=== PATIENT | female | born 1935 | race Caucasian/White ===

== ENCOUNTER → 2018-07-20 14:21 | Outpatient (CLI) | payer MEDICARE, OTHER, SELFPAY ==
[2018-07-20 13:58] VITALS: BMI 21.9
--- NOTE | 2018-07-20 14:27 | RAD_ITS ---
STUDY: X-RAY CHEST REASON FOR EXAM: Female, 82 years old. Upper respiratory infection. TECHNIQUE: PA and lateral views of the chest. COMPARISON: PA and lateral chest x-ray August 05, 2017. FINDINGS: The multilead left subclavian cardiac pacemaker is unchanged. There is hyperinflation of the lungs consistent with chronic obstructive lung disease (COPD). No acute infiltrate. There is no demonstrated pleural abnormality. There is stable mild cardiac enlargement. Sternal cerclage wires and vascular clips are present from a prior sternotomy and coronary artery bypass graft procedure (CABG). Normal mediastinum and davi. Normal visualized pulmonary arteries. There is stable atherosclerotic calcification of the aortic arch. There are mild multilevel degenerative changes and exaggerated kyphosis of the visualized thoracic spine. Metal fixation device is again seen in the right humeral head. Surgical clips project in the soft tissues of the bilateral chest chow. There is no demonstrated abnormality of the visualized soft tissue structures of the upper abdomen. RAD/Chest PA and Lateral IMPRESSION: Stable x-ray examination of the chest, with findings of obstructive pulmonary disease, prior sternotomy and CABG, mild cardiac enlargement, and multilead cardiac pacemaker. Electronically Signed: Cristobal Sarmiento MD at 15:34 EST , Service support ,
--- OUTSIDE RECORDS SUMMARY | 2018-09-15 00:23 | XMS RPT_ITS ---
:1935 Author Organization OHIP Support Name Relationship Address Phone ICE, TREECIE Unavailable [address] + [place] [address] R Unavailable Unavailable Unavailable ICE, TREECIE Unavailable [address] + [place] [address] R Unavailable Unavailable Unavailable ICE, TREECIE Unavailable [address] + [place] [address] R Unavailable Unavailable Unavailable ICE, TREECIE Unavailable [address] + [place] [address] R Unavailable Unavailable Unavailable ICE, TREECIE Unavailable [address] + [place] [address] R Unavailable Unavailable Unavailable ICE, TREECIE Unavailable [address] + [place] [address] R Unavailable Unavailable Unavailable ICE, TREECIE Unavailable [address] + [place] [address] R Unavailable Unavailable Unavailable ICE, TREECIE Unavailable [address] + [place] [address] R Unavailable Unavailable Unavailable ICE, TREECIE Unavailable [address] + [place] [address] R Unavailable Unavailable Unavailable ICE, TREECIE Unavailable [address] + [place] [address] R Unavailable Unavailable Unavailable ICE, TREECIE Unavailable [address] + [place] [address] R Unavailable Unavailable Unavailable ICE, TREECIE Unavailable [address] + [place] [address] R Unavailable Unavailable Unavailable ICE, TREECIE Unavailable [address] + [place] [address] R Unavailable Unavailable Unavailable R Unavailable Unavailable Unavailable ICE, TREECIE Unavailable [address] + [place] [address] R Unavailable Unavailable Unavailable GRIFFITH, F Unavailable [address] + [place] [address] ICE, TREECIE Unavailable [address] + [place] [address] R Unavailable Unavailable Unavailable GRIFFITH, F Unavailable [address] + [place] [address] ICE, TREECIE Unavailable [address] + [place] [address] R Unavailable Unavailable Unavailable GRIFFITH, F Unavailable [address] + [place] [address] Care Team Providers Name Role Phone Lara Gilliam Attending Unavailable [facility] Unavailable Agyepong, Messi Admitting Unavailable Ciera Bazan Consulting Unavailable Demar Schwartz Consulting Unavailable Agyepong, Messi Admitting Unavailable Agyepong, Messi Attending Unavailable [facility] Unavailable Lilli, Dontrell Consulting Unavailable Agyepong, Messi Admitting Unavailable Dontrell Reeder Attending Unavailable [facility], N[place] Primary Care Unavailable Izabel Bazana Consulting Unavailable Lilli, Dontrell Consulting Unavailable Agyepong, Messi Admitting Unavailable Dontrell Reeder Attending Unavailable [facility], [place] Primary Care Unavailable Ciera Bazan Consulting Unavailable Demar Schwartz Consulting Unavailable Lilli Dontrell Consulting Unavailable Sandy Vincent PA-C Attending Unavailable [facility] III, [place] Primary [facility] Unavailable Agyepong, Messi Admitting Unavailable Demar Schwartz Attending Unavailable bul III, Nesbitt Primary Care Unavailable Izabel Bazana Consulting Unavailable Efren, Demar Consulting Unavailable Lilli, Dontrell Consulting Unavailable Agyepong, Messi Admitting Unavailable Lara Gilliam Attending Unavailable [facility], [place] Primary Care Unavailable Beni Ciera Consulting Unavailable Efren, Demar Consulting Unavailable Semendamir, Lara Consulting Unavailable Agyepong, Messi Admitting Unavailable Demar Schwartz Attending Unavailable Cebul III, Nesbitt Primary Care Unavailable Izabel Bazana Consulting Unavailable Efren, Demar Consulting Unavailable Sementi, Lara Consulting Unavailable Agyepong, Messi Admitting Unavailable Sementi, Lara Attending Unavailable Cebul III, Mariaa Primary Care Unavailable Bazan, Ciera Consulting Unavailable Efren, Demar Consulting Unavailable Sementi, Lara Consulting Unavailable Agyepong, Messi Admitting Unavailable Efren, Demar Attending Unavailable Cebul III, Mariaa Primary Care Unavailable Bazan, Ciera Consulting Unavailable Efren, Demar Consulting Unavailable Sementi, Lara Consulting Unavailable Agyepong, Messi Admitting Unavailable Sementi, Lara Attending Unavailable Cebul III, Mariaa Primary Care Unavailable Bazan, Ciera Consulting Unavailable Efren, Demar Consulting Unavailable Sementi, Lara Consulting Unavailable Agyepong, Messi Admitting Unavailable Sementi, Lara Attending Unavailable Cebul III, Mariaa Primary Care Unavailable Bazan, Ciera Consulting Unavailable Efren, Demar Consulting Unavailable Sementi, Lara Consulting Unavailable Cebul, Maury Attending Unavailable Cebul III, Mariaa Referring Unavailable Cebul, Maury Attending Unavailable Cebul, Maury Referring Unavailable Cebul, Maury Attending Unavailable Cebul III, Mariaa Referring Unavailable Cebul, Maury Attending Unavailable Cebul, Maury Referring Unavailable Cebul III, Mariaa Primary Care Unavailable HOLLEY, ZACHARY Attending Unavailable HOLLEY, ZACHARY Referring Unavailable HOLLEY, ZACHARY Attending Unavailable HOLLEY, ZACHARY Referring Unavailable HOLLEY, ZACHARY Attending Unavailable HOLLEY, ZACHARY Referring Unavailable VERNON HARDING (CLERICAL ADMINISTRATIVE ASSISTANT) Attending Unavailable CEBUL III, MARIAA Bolden Attending Unavailable VERNON HARDING (CLERICAL ADMINISTRATIVE ASSISTANT) Referring Unavailable CEBUL III, MARIAA Bolden Referring Unavailable CEBUL III, MARIAA Bolden Attending Unavailable CEBUL III, MARIAA Bolden Referring Unavailable CEBUL III, MARIAA A Referring Unavailable CEBUL III, MARIAA A Referring Unavailable CEBUL III, MARIAA A Referring Unavailable CEBUL III, MARIAA Bolden Referring Unavailable CEBUL, MARIAA Bolden Attending Unavailable PROBLEMS PROBLEMS DATE TYPE CONDITION / CODE ATTENDING STATUS SOURCE 07/24/2015 Active Hypothyroidism, NA Active [facility] unspecified / [facility] Main E03.9(ICD-10) [place] Repository 07/20/2018 Unknown J06.9 - Acute upper Cebul Maury Active [place] [facility] infection, [facility] unspecified / Repository J06.9(ICD-10) 05/12/2018 Active Peripheral vascular NA Active [facility] disease, [facility] unspecified / [place] I73.9(ICD-10) Repository 05/28/2018 Active Vitamin D NA Active [place] deficiency, [facility] unspecified / [place] E55.9(ICD-10) Repository 02/15/2015 Active Hyperlipidemia, NA Active [place] unspecified / [facility] E78.5(ICD-10) [place] Repository 05/26/2018 Active Pain in right leg / NA Active [place] M79.604(ICD-10) Clinic Main [place] Repository 04/19/2018 Active Hypercalcemia / NA Active [place] E83.52(ICD-10) Clinic Main [place] Repository 04/19/2018 Active Hyperparathyroidism NA Active [place] , unspecified / [facility] Main E21.3(ICD-10) [place] Repository 04/05/2018 Admitting Unknown / MARIAA FULLER Active [facility] diagnosis UNK(Unknown) Hospital Repository 02/10/2018 Active Other long chain beamer NA Active [place] (current) drug [facility] therapy / [place] Z79.899(ICD-10) Repository 10/21/2017 Unknown I73.9 - Peripheral Maury Fuller Active [place] vascular disease, [facility] unspecified / Hospital I73.9(ICD-10) Repository PROCEDURES PROCEDURES No Procedure Records FoundRESULTS RESULTS BASIC METABOLIC Collected: 08/09/2018 Status: F Source: IZZY PROFILE (BMP) 5:30 AM [facility] REPOSITORY TYPE CODE TESTS RESULT OUT OF RANGE REFERENCE UNITS LAB L501.0100 74-106 mg/dL High GLU 117 Result Comment: Fasting Glucose result from 100 to 125 mg/dL suggests IMPAIRED HOMEOSTASIS per A.D.A. criteria. Please note revised GLUCOSE reference range effective 2017. LAB L501.1000 7-18 mg/dL High BUN 19 LAB L501.1100 0.55-1.02 mg/dL High CREAT,SERUM 1.34 Result Comment: The validity of the calculated GFR AND GFRAA in patients over 70 years has not been determined. Clinical correlation is essential. LAB L501.1110 >60 mL/min Low EST GFR 40 Result Comment: Non- GFR Calc LAB L501.1115 >60 mL/min Low EST GFR - AA 49 Result Comment: GFR Calc LAB L501.1255 ml/min Normal Estimated CRCL 24.85 LAB L501.1300 10-20 RATIO Normal BUN/CRE 14.2 LAB L501.2200 8.5-10 mg/dL Normal .1 CA 9.0 LAB L501.5300 136-14 mmol/L Normal 5 NA 139 LAB L501.5600 3.5-5. mmol/L Normal 1 K 3.9 LAB L501.5900 98-107 mmol/L Normal CL 100 LAB L501.6100 21.0-3 mmol/L Normal 2.0 CO2 30.0 LAB L501.6200 5-15 Normal GAP 9 Performed By: #### L500.2500 #### [facility] [address] [place], [address] URINALYSIS, COMPLETE Collected: 08/08/2018 Status: F Source: WHITING 6:00 PM [facility] REPOSITORY Order Comment: How was Urine Obtained? CATHETER SPECIMEN TYPE CODE TESTS RESULT OUT OF RANGE REFERENCE UNITS LAB L400.3000 Yellow COLOR Normal Yellow LAB L400.3050 Clear Normal CLARITY Clear LAB L400.3200 Normal mg/dl Normal GLUCOSE, UR Normal LAB L400.3300 Negative mg/dL Normal BILIRUBIN URINE Negative LAB L400.3400 Negative mg/dl Normal KETONE UR Negative LAB L400.3465 1.002-1.030 Normal SP.GR. DIPSTX 1.015 LAB L400.3550 5.0 - 8.0 pH UR Normal 6.0 LAB L400.3600 Negative mg/dl PROT Normal DIPSTX Negative LAB L400.3700 Normal mg/dl Normal UROBILI Normal LAB L400.3750 Negative Normal NITRITE UR Negative LAB L400.3780 Negative /ul Normal OCCULT BLOOD-UR Negative LAB L400.3800 Negative /ul LEUK Normal ESTERASE Negative LAB L400.4050 0-5 /hpf WBC 0 Normal SEEN LAB L400.4100 0-5 /hpf 0 Normal RBC-UA SEEN LAB L400.4150 5-10 /hpf SQUAM 0 Normal EPI SEEN LAB L400.4300 None Seen /hpf 0 Normal BACTERIA SEEN LAB L400.4350 <or=2+ /hpf 0 Normal MUCUS, URINE SEEN Performed By: #### L400.0001 #### [facility] [address] [place], [address] HAND MIN 3 VIEWS Observed: 08/08/2018 Status: F Source: WHITING 12:04 PM [facility] REPOSITORY [facility] Imaging Services [address] [place] [address] Hand Min 3 Views MR#: [id number] Acct: [id number] Name: LI GRIFFITH Rep #: [id number] : 1935 F 82 From: Ha Collazo MD PCP: Mariaa Fuller III, MD Status: ADM IN Study: Hand Min 3 Views Date of Exam: 08/08/18 Exam# [id number] Ordering Dr: Ino Gilliam DO STUDY: X-RAY - RIGHT HAND REASON FOR EXAM: Female, 82 years old. Third finger redness and swelling TECHNIQUE: 3 view(s) of the hand. COMPARISON: None. FINDINGS: Normal radiocarpal articulation. Normal distal radioulnar joint. Normal visualized carpal bones. Normal carpal articulations Normal carpometacarpal articulation of the thumb. Normal second through fifth carpometacarpal joints. Normal metacarpi. Normal metacarpophalangeal joint of the thumb. Normal interphalangeal joint of the thumb. Normal proximal and distal phalanges of the thumb. Normal metacarpophalangeal joints of the second through fifth fingers. Interphalangeal osteoarthritis distal digit 5, proximal and distal digit 4, proximal and distal digits 3, and proximal digit 2. A small erosion is noted involving the ulnar base of the fifth proximal phalanx. The soft tissue structures are unremarkable. RAD/Hand Min 3 Views IMPRESSION: Multifocal osteoarthritis as described. A small erosion is noted involving the ulnar base of the fifth proximal phalanx. Electronically Signed: Ha Collazo MD at 14:21 EST Tel , Service support , CC: Lara Gilliam; Mariaa Fuller III, MD Nutrition Specialist: Signed CBC-COMPLETE BLOOD CNT Collected: 08/08/2018 Status: F Source: IZZY NO DIFF 5:08 AM [facility] REPOSITORY TYPE CODE TESTS RESULT OUT OF RANGE REFERENCE UNITS LAB L100.1000 4.4-11.0 K/mm3 Normal WBC 10.2 LAB L100.1200 4.2-5.4 M/mm3 Low RBC 3.00 LAB L100.1300 12.0-15.0 g/dl Low HGB 9.5 LAB L100.1400 37-47 % Low HCT 29.6 LAB L100.1500 81-99 fL Normal MCV 98.7 LAB L100.1600 27.0-32.0 pg Normal MCH 31.7 LAB L100.1700 32-36 g/gl Normal MCHC 32.1 LAB L100.1810 11.6-14.6 % High RDW CV 16.7 LAB L100.1820 35.1-43.9 fl High RDW SD 53.2 LAB L100.1900 150-450 K/mm3 Normal PLT 240 LAB L100.2000 6.2-12.0 fl Normal MPV 10.6 Performed By: #### L100.0500 #### [facility] [address], [address] BASIC METABOLIC Collected: 08/08/2018 Status: F Source: WHIT[place] PROFILE (BMP) 5:08 AM [facility] REPOSITORY TYPE CODE TESTS RESULT OUT OF RANGE REFERENCE UNITS LAB L501.0100 74-106 mg/dL Normal GLU 96 Result Comment: Please note revised GLUCOSE reference range effective 2017. LAB L501.1000 7-18 mg/dL Normal BUN 15 LAB L501.1100 0.55-1.02 mg/dL High CREAT,SERUM 1.24 Result Comment: The validity of the calculated GFR AND GFRAA in patients over 70 years has not been determined. Clinical correlation is essential. LAB L501.1110 >60 mL/min Low EST GFR 44 Result Comment: Non- GFR Calc LAB L501.1115 >60 mL/min Low EST GFR - AA 53 Result Comment: GFR Calc LAB L501.1255 ml/min Normal Estimated CRCL 26.85 LAB L501.1300 10-20 RATIO Normal BUN/CRE 12.1 LAB L501.2200 8.5-10 mg/dL Normal .1 CA 8.6 LAB L501.5300 136-14 mmol/L Normal 5 NA 143 LAB L501.5600 3.5-5. mmol/L Normal 1 K 3.7 LAB L501.5900 98-107 mmol/L Normal CL 104 LAB L501.6100 21.0-3 mmol/L Normal 2.0 CO2 31.0 LAB L501.6200 5-15 Normal GAP 8 Performed By: #### L500.2500, L501.2300 #### [facility] [address] [place], [address] PHOSPHORUS Collected: 08/08/2018 Status: F Source: WHITING 5:08 AM [facility] REPOSITORY TYPE CODE TESTS RESULT OUT OF RANGE REFERENCE UNITS LAB L501.2300 2.5-4.9 mg/dL Normal PHOS 2.9 Performed By: #### L500.2500, L501.2300 #### [facility] [address] [place], [address] CHEST 1 VIEW Observed: 08/08/2018 Status: F Source: IZZY (PORTABLE) 4:29 AM [facility] REPOSITORY [facility] Imaging Services [address] [place] [address] Chest 1 View (Portable) MR#: [id number] Acct: [id number] Name: LI GRIFFITH Rep #: [id number] : 1935 F 82 From: Michael Abebe PCP: Mariaa Fuller III, MD Status: ADM IN Study: Chest 1 View (Portable) Date of Exam: 08/08/18 Exam# [id number] Ordering Dr: Messi Hendricks MD STUDY: X-RAY CHEST REASON FOR EXAM: Female, 82 years old. Fever and cough. TECHNIQUE: AP portable chest. COMPARISON: July 20, 2018. FINDINGS: Mild cardiomegaly unchanged. The lungs are hyperinflated. Scattered right basilar subsegmental atelectasis or fibrosis unchanged. No pneumothorax. Sternal wires are present. Cardiac pacemaker left hemithorax. Surgical clips right axilla. The breast shadows are not visualized. Osseous structures unchanged. There is no demonstrated abnormality of the visualized soft tissue structures of the upper abdomen. RAD/Chest 1 View (Portable) IMPRESSION: Stable chest, no acute cardiopulmonary disease. Mild cardiomegaly. COPD. Electronically Signed: Michael Abebe MD at 7:25 EST , Service support , CC: Mariaa Fuller III, MD; Messi Hendricks MD Nutrition Specialist: Signed VENOUS DUPLEX LOWER Observed: 08/07/2018 Status: F Source: WHITING EXTREMITY 4:42 PM [facility] REPOSITORY [facility] Cardiovascular Services [address] [place] [address] Venous Duplex - [facility] 08/07/18 1327 MR#: [id number] Acct: [id number] Name: LI GRIFFITH Rep #: [id number] : 1935 82 From: Axel aSm MD Attending Dr: Lara Gilliam Status: ADM IN Ordering Dr: Ino Gilliam DO Date: 08/07/18 Location: [facility] [place] Sex: F C Admitted: 08/03/18 Reason For Study: LEG PAIN RIGHT LEFT GSV is normal. CFV is compressible, spontaneous, competent, CFV is compressible, spontaneous, competent and demonstrates pulsatile venous flow. and demonstrates pulsatile venous flow. FV is compressible, spontaneous, competent FV is compressible, spontaneous, competent and demonstrates pulsatile venous flow. and demonstrates pulsatile venous flow. POP V is compressible, spontaneous, competent POP V is compressible, spontaneous, competent and demonstrates pulsatile venous flow. and demonstrates pulsatile venous flow. T/P Trunk is compressible. T/P Trunk is compressible. PTV is compressible. PTV is compressible. LT PerV is compressible. RT PerV is compressible. GSV harvested. Procedure Exam performed portable in patient room. A preliminary report was called and/or faxed to [facility]. Interpretation Summary Deep veins of the lower extremities are bilaterally patent and compressible segmentally. There is no evidence of deep vein thrombosis on either side. Valvular competence appears intact within the proximal deep venous systems bilaterally. The right greater saphenous vein appears patent and compressible segmentally. The left greater saphenous vein is absent, having been previously harvested. Pulsatile flow is noted in the deep venous system bilaterally, which may be indicative of elevated central venous pressure (i.e. congestive heart failure, tricuspid valve insufficiency, etc.). Clinical correlation is advised. Ordering Physician: Lara Gilliam Referring Physician: LIA Fuller M.D. Performed By: Samina Arellano RVT 08/07/18 1641 Date Axel Sam MD CC: Lara Gilliam; Mariaa Fuller III, MD Date Dictated: 08/07/18 1327 Date Transcribed: 08/07/18 1641 Nutrition Specialist: Signed DIGOXIN LEVEL Collected: 08/07/2018 Status: F Source: IZZY 1:05 PM [facility] REPOSITORY Order Comment: Comments: OK to use the AM blood TYPE CODE TESTS RESULT OUT OF RANGE REFERENCE UNITS LAB L501.7510 0.80-2.00 ng/mL Low DIG 0.27 Performed By: #### L501.7510 #### [facility] [address] [place], [address] CBC-COMPLETE BLOOD CNT Collected: 08/07/2018 Status: F Source: IZZY NO DIFF 5:45 AM [facility] REPOSITORY TYPE CODE TESTS RESULT OUT OF RANGE REFERENCE UNITS LAB L100.1000 4.4-11.0 K/mm3 Normal WBC 8.1 LAB L100.1200 4.2-5.4 M/mm3 Low RBC 2.72 LAB L100.1300 12.0-15.0 g/dl Low HGB 8.5 LAB L100.1400 37-47 % Low HCT 27.3 LAB L100.1500 81-99 fL High MCV 100.4 LAB L100.1600 27.0-32.0 pg Normal MCH 31.3 LAB L100.1700 32-36 g/gl Low MCHC 31.1 LAB L100.1810 11.6-14.6 % High RDW CV 16.5 LAB L100.1820 35.1-43.9 fl High RDW SD 54.1 LAB L100.1900 150-450 K/mm3 Normal PLT 198 LAB L100.2000 6.2-12.0 fl Normal MPV 10.7 Performed By: #### L100.0500 #### [facility] [address] [place], [address] BASIC METABOLIC Collected: 08/07/2018 Status: F Source: WHITING PROFILE (BMP) 5:45 AM [facility] REPOSITORY TYPE CODE TESTS RESULT OUT OF RANGE REFERENCE UNITS LAB L501.0100 74-106 mg/dL Normal GLU 88 Result Comment: Please note revised GLUCOSE reference range effective 2017. LAB L501.1000 7-18 mg/dL Normal BUN 18 LAB L501.1100 0.55-1.02 mg/dL High CREAT,SERUM 1.04 Result Comment: The validity of the calculated GFR AND GFRAA in patients over 70 years has not been determined. Clinical correlation is essential. LAB L501.1110 >60 mL/min Low EST GFR 54 Result Comment: Non- GFR Calc LAB L501.1115 >60 mL/min Normal EST GFR - AA 65 Result Comment: GFR Calc LAB L501.1255 ml/min Normal Estimated CRCL 32.01 LAB L501.1300 10-20 RATIO Normal BUN/CRE 17.3 LAB L501.2200 8.5-10 mg/dL Normal .1 CA 8.6 LAB L501.5300 136-14 mmol/L Normal 5 NA 144 LAB L501.5600 3.5-5. mmol/L Normal 1 K 3.8 LAB L501.5900 98-107 mmol/L High CL 111 LAB L501.6100 21.0-3 mmol/L Normal 2.0 CO2 27.0 LAB L501.6200 5-15 Normal GAP 6 Performed By: #### L500.2500, L501.2300, L501.5200 #### [facility] [address] [place], [address] PHOSPHORUS Collected: 08/07/2018 Status: F Source: WHITING 5:45 AM [facility] REPOSITORY TYPE CODE TESTS RESULT OUT OF RANGE REFERENCE UNITS LAB L501.2300 2.5-4.9 mg/dL Low PHOS 1.9 Performed By: #### L500.2500, L501.2300, L501.5200 #### [facility] [address] [place], [address] MAGNESIUM Collected: 08/07/2018 Status: F Source: WHITING 5:45 AM [facility] REPOSITORY TYPE CODE TESTS RESULT OUT OF RANGE REFERENCE UNITS LAB L501.5200 1.6-2.6 mg/dL Normal MG 1.6 Performed By: #### L500.2500, L501.2300, L501.5200 #### [facility] [address] [place], [address] CONSULTATION Observed: 08/06/2018 Status: F Source: WHITING 5:13 PM [facility] REPOSITORY [facility] Medical Records Department [address] [place] [id number] Consultation 08/03/18 1803 MR#: [id number] Acct: [id number] Name: LI GRIFFITH Rep #: [id number] : 1935 82 From: Ciera Bazan MD PCP: Mariaa Fuller III, MD Status: ADM IN Y Location: [facility] [place] [id number] - Consult Date of Consult: 08/03/18 - Reason for Consult CC: hematemesis, melena, anemia HPI: 82 y/o WF with multiple medical morbidities presents with anemia, initial Hgb was 10, now down to 7.2. Has had melena and hematemesis. Started yesterday afternoon, but persisted and she presented to [facility] ED. Denies abdominal pain, except for rare epigastric discomfort. Occasional right sided abdominal pain. Denies chronic heartburn, symptoms usually just once a month. Denies history of PUD. Has known right lower extremity arterial disease, seen by Dr. Fuller for consideration of vascular procedure. Occasional takes excedrin for headaches. PAST MEDICAL HISTORY Actinic keratosis 08/13/2011 Cardiomyopathy ([facility]) 03/29/2014 CHF (congestive heart failure) ([facility]) 08/11/2010 Chronic kidney disease (CKD), stage III (moderate) ([facility]) 11/18/2016 Claudication ([facility]) 06/16/2017 Diverticulosis of colon (without mention of hemorrhage) Essential hypertension, benign External hemorrhoids without mention of complication Hypercalcemia 02/19/2017 Internal hemorrhoids without mention of complication Lumbar degenerative disc disease 06/30/2013 Malignant neoplasm of breast (female), unspecified site Breast cancer Other osteoporosis Pure hypercholesterolemia 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 cinacalcet (SENSIPAR) 30 mg tablet Take 1 tablet by mouth twice daily. furosemide (LASIX) 20 mg tablet Take 1 tablet by mouth once daily. meloxicam (MOBIC) 15 mg tablet Take 1 tablet by mouth once daily. With food. Hrdbpaj-Bhlikueckdulu-Rtuenxwd (EXCEDRIN) 250-250-65 mg per tablet Take 1 tablet by mouth every 6 hours as needed for Pain. levothyroxine (SYNTHROID) 100 mcg tablet TAKE 1 TABLET BY MOUTH ONE TIME DAILY ON AN EMPTY STOMACH DIGOX 125 mcg tablet TAKE 1 TABLET BY MOUTH ONE TIME DAILY clopidogrel (PLAVIX) 75 mg tablet TAKE 1 TABLET BY MOUTH EVERY DAY spironolactone (ALDACTONE) 25 mg tablet Take 1 tablet by mouth once daily. losartan (COZAAR) 100 mg tablet TAKE 1 TABLET BY MOUTH ONE TIME DAILY carvedilol (COREG) 25 mg tablet TAKE 1 TABLET BY MOUTH TWICE DAILY nitroglycerin sublingual (NITROSTAT) 0.4 mg SL tablet Dissolve 1 tablet under the tongue as needed. DISSOLVE ON TONGUE FOR CHEST PAIN. IF NO PAIN RELIEF, CALL 911 OTC PRODUCT Vitamin D 1000 mg daily. SOCIAL HISTORY Cancer Mother ovarian Heart Father Breast Cancer Sister Substance Use Topics Smoking status: Never Smoker Smokeless tobacco: Never Used Alcohol use No Review of systems: General: has had some weight loss, decreased appetite, denies fevers Cardiovascular: has pacemaker Respiratory: has shortness of breath with exertion Gastrointestinal - see above Neurological: denies seizures Kidneys - has chronic kidney disease Musculoskeletal - has bad knees PHYSICAL EXAMINATION: BP 142/62 Pulse 88 Temp 98.5 F Resp 16 Wt 120 lb General: APPEARANCE Well appearing, alert, in no acute distress, well-hydrated, well nourished. Neck supple with no JVD, trachea midline Eyes - wearing glasses, sclera clear Lungs clear to auscultation, no rhonchi/wheezing noted Heart sounds - regular Abdomen - soft and benign, normal bowel sounds EXTREMITIES mild lower dependent swelling bilaterally. IMPRESSION: anemia GI bleed PLAN: I have offered upper and lower endoscopy, however, she will require colon cleansing preparation. However, her kidney function tests are elevated and before she undergoes colon cleansing preparation, this should be addressed. Upper and lower endoscopy can be done on Wednesday. I have offered upper endoscopy to be done tomorrow, however, patient's family declines this and wants both done at same time. At this point, patient can be on clear liquid diet. 08/06/18 9822 <Electronically signed by Ciera Bazan MD> Date Ciera Bazan MD Cosigner Signature (if applicable): Date CC: Demar Schwartz MD; Mariaa Fuller III, MD; Ciera Bazan MD Signed CONSULTATION Observed: 08/06/2018 Status: F Source: WHITING 5:48 AM [facility] REPOSITORY [facility] Medical Records Department [address] [place] [address] Consultation 08/05/18 0832 MR#: [id number] Acct: [id number] Name: LI GRIFFITH Rep #: [id number] : 1935 82 From: Demar Schwartz MD PCP: Mariaa Fuller III, MD Status: ADM IN Y Location: ICU ICU01-1 Problem List (1) Acute blood loss anemia Status: Acute (2) Arrhythmia Status: Chronic (3) COPD (chronic obstructive pulmonary disease) Status: Chronic (4) Coronary artery disease Status: Chronic (5) Peripheral arterial disease Status: Chronic Reason for Consult Date of Consultation: 08/05/18 Reason for Consultation: Acute GI bleed History of Present Illness: The patient is a 82 year old F, with past medical history listed below, who presented to [facility] on 08/03/2018 secondary to nausea, vomiting and diarrhea. This reportedly had started abruptly on the day of presentation with a large black stool. Patient had later developed a dark emesis and felt lightheaded and fell to the floor. Patient denied any true syncopal event or injury from the fall, but had complained of some abdominal pain. Patient is on aspirin and Plavix secondary to comorbidities. In the emergency room, patient received IV fluids and a CT scan of the abdomen showed diverticulosis of the colon. Patient's hemoglobin at that time was 10 and INR of 1.2. Attempts to pass an NG tube were unsuccessful. Patient was admitted to the general medical floor for evaluation. Patient does report taking Excedrin on a routine basis secondary to headache, but exact dosing is unclear. Patient was seen by surgery and there was a plan for an upper and lower endoscopy to be done on today. However, patient started to have decreased hemoglobin overnight and went for emergent evaluation. Endoscopy showed a large peptic ulcer with adherent clot and active oozing. This was injected, but oozing persisted. Patient was transferred to the intensive care unit for further monitoring. This morning, patient reports improvement in overall condition. Patient does report one episode of small melena overnight, but no chest pain is been reported. Patient has not had any fevers and is tolerating room air well. Patient has not had any hematemesis reported. Patient does have an extensive heart and kidney history. Patient reports she is been compliant with her medications. Patient was unable to quantify use of Excedrin. Past Medical History Past Medical History (Chronic Problems): Chronic Problems (Last Reviewed 08/03/18 @ 07:33 by Messi Hendricks MD) Arrhythmia (Chronic) COPD (chronic obstructive pulmonary disease) (Chronic) Coronary artery disease (Chronic) Peripheral arterial disease (Chronic) Medical History: Medical History (Last Reviewed 08/03/18 @ 07:33 by Messi Hendricks MD) Respiratory abnormality (Acute) J98.9 CAD (coronary artery disease) I25.10 History of breast cancer Z85.3 Hypothyroidism E03.9 PAD (peripheral artery disease) I73.9 Pacemaker Z95.0 COPD (chronic obstructive pulmonary disease) J44.9 HTN (hypertension) I10 Allergies acetaminophen [From Percocet] Allergy (Verified 08/03/18 02:29) Other alendronate sodium [From Fosamax] Allergy (Verified 08/03/18 02:29) Other nitrofurantoin [From Macrodantin] Allergy (Verified 08/03/18 02:29) Rash oxycodone [From Percocet] Allergy (Verified 08/03/18 02:29) Other quinapril [From Accupril] Allergy (Verified 08/03/18 02:29) Rash atorvastatin [From Lipitor] Adverse Reaction (Verified 08/03/18 02:29) Pain in joints diclofenac [From Arthrotec 50] Adverse Reaction (Verified 08/03/18 02:29) Upset Stomach misoprostol [From Arthrotec 50] Adverse Reaction (Verified 08/03/18 02:29) Upset Stomach Home Medications: Ambulatory Orders Medication Instructions Recorded Clopidogrel Bisulfate [Plavix] 75 mg PO DAILY 12/15/16 Digoxin [Lanoxin] 125 mcg PO DAILY 07/08/17 Furosemide [Lasix] 20 mg PO DAILY 07/08/17 Surgical History: Surgical History (Last Reviewed 08/03/18 @ 07:33 by Messi Hendricks MD) History of coronary artery bypass graft x 3 Z95.1 S/P peripheral artery angioplasty with stent placement Z95.820 Status post peripheral artery angioplasty Z98.62 Lives: Spouse/ Significant Other Smoking Status: Never smoker - *Family History Maternal Family History: Family History (Last Reviewed 08/03/18 @ 07:34 by Messi Hendricks MD) Sister Breast cancer Hypertension History Items: No pertinent history Review of Systems Comment: See HPI, otherwise negative x 10 systems Patient Problems: Active and Suspected Problems (Last Reviewed 08/03/18 @ 07:33 by Msesi Hendricks MD) Acute blood loss anemia (Acute) Objective: All imaging personally reviewed. Patient did receive 1 unit pRBC between last H/H. - Physical Exam General: Alert, Oriented x3, Cooperative, No apparent distress, - - Appears stated age. No conversational dyspnea. HEENT: Atraumatic, PERRLA, EOMI, Normocephalic, - - No scleral icterus or injection Oral: No Gingival or Mucosal Lesions/ Ulcerations, Dry Mucosa Neck: Supple, No JVD, No Nodes, Trachea Midline Lungs: Clear to auscultation, Normal air movement, No rhonchi, No wheeze, No rales Cardiovascular: Regular rate, Regular Rhythm, Normal S1, Normal S2, No murmurs, No rub noted, No Gallop, - - Paced on telemetry Abdomen: Bowel Sounds Present, Soft, Non Tender, Non-Distended Extremities: No clubbing, No cyanosis, No edema, Capillary Refill Less than 3 Seconds Skin: No rashes, No breakdown Musculoskeletal: No Tenderness to Palpation of Joints or Extremities Lymphatic: No Cervical, Supraclavicular, or Inguinal Adenopathy Neurological: Cranial nerves II-XII grossly intact, Deep Tendon Reflexes 2+/4 and Symmetrical, Motor Exam 5/5 strength throughout Psych/Mental Status: Alert and oriented to time, place, person, mood and affect Vital Signs Temp Pulse Resp BP Pulse Ox 36.9 C 62 20 H 121/46 H 97 08/05/18 00:00 08/05/18 08:00 08/05/18 08:00 08/05/18 08:00 08/05/18 08:00 Oxygen Flow Rate (L/min) 3 Oxygen Delivery Method Room Air Weight: 53.9 kg Body Mass Index (BMI) 21.7 Intake and Output for Last 24 Hours Microbiology Past 72 Hours 08/03/18 06:40 Stool Occult Blood (JERICA) - Final Stool 08/03/18 02:52 Stool Occult Blood (JERICA) - Final Stool Laboratory Tests Past 24 Hrs WBC 17.9 H RBC 2.34 L Hgb 7.4 L Hct 23.9 L MCV 102.1 H MCH 31.6 MCHC 31.0 L RDW 15.6 H RDW Differential 57.1 H WBC WBC 9.6 RBC 2.46 L Hgb 7.6 L Hct 24.0 L MCV 97.6 MCH 30.9 MCHC 31.7 L RDW 17.1 H RDW Differential 60.4 H Clinical Impression(s) from Imaging Studies Abdomen/Pelvis CT 08/03/18 02:45 IMPRESSION: 1. Diverticulosis coli. No diverticulitis or other colitis identified. 2. Cardiomegaly with permanent transvenous pacemaker in place. 3. Chronic findings include atrophic right kidney, small hiatal hernia, and atherosclerotic, ectatic aorta. Individualized dose optimization techniques were used for this CT. at 0451 Reported and signed by: Brant Hatfield MD Electronically Signed: Brant Hatfield, at 4:49 EST Tel , Service support , Assessment/Plan Active and Suspected Problems (Last Reviewed 08/03/18 @ 07:33 by Messi Hendricks MD) Acute blood loss anemia (Acute) RECOMMENDATIONS: 1. Transfuse 1 unit pRBCs 2. Transition IVF to LR 3. Repeat endoscopy per surgery 4. Continue baseline medications IMPRESSIONS: 1. Acute blood loss anemia secondary to acute upper GI bleed with peptic ulcer and adherent clot Patient reportedly continued to have oozing despite injection yesterday during EGD. Tentative plan is to for a repeat evaluation later today. Patient is not having any significant melena at this time, but given relative small increment after blood transfusion, will give an additional unit with a goal hemoglobin greater than 8 while acute bleeding is a possibility. 2. Hypernatremia/hyperchloremia Please secondary to resuscitative efforts. Patient will be switched to lactated Ringer's for volume. Patient would benefit from increased free water, but currently is n.p.o. If patient remains n.p.o., transition to D5 half-normal saline may be indicated. 3. CAD/PAD/pacemaker/elevated troponins/advanced age Complicates care, management, recovery and prognosis. Patient's aspirin and Plavix on hold secondary to acute GI bleed. Patient does have a remote history of stents in the past. Elevation of troponin may be secondary to #1. Patient is not a candidate for acute intervention at this time. Echocardiogram has been ordered. Code Visit Inpatient E AND M: 32653 Init Hosp L3 08/06/18 0548 <Electronically signed by Demar Schwartz MD> Date Demar Schwartz MD Cosigner Signature (if applicable): Date CC: Demar Schwartz MD; Mariaa Fuller III, MD; Ciera Bazan MD Signed CBC W/DIFF, AUTOMATED Collected: 08/06/2018 Status: F Source: IZZY 4:55 AM [facility] REPOSITORY TYPE CODE TESTS RESULT OUT OF RANGE REFERENCE UNITS LAB L100.1000 4.4-11.0 K/mm3 Normal WBC 10.5 LAB L100.1200 4.2-5.4 M/mm3 Low RBC 3.17 LAB L100.1300 12.0-15.0 g/dl Low HGB 9.7 LAB L100.1400 37-47 % Low HCT 30.6 LAB L100.1500 81-99 fL Normal MCV 96.5 LAB L100.1600 27.0-32.0 pg Normal MCH 30.6 LAB L100.1700 32-36 g/gl Low MCHC 31.7 LAB L100.1810 11.6-14.6 % High RDW CV 17.1 LAB L100.1820 35.1-43.9 fl High RDW SD 58.7 LAB L100.1900 150-450 K/mm3 Normal PLT 205 LAB L100.2000 6.2-12.0 fl Normal MPV 9.9 LAB L100.2100 47-70 % Normal NEUT% 65.8 LAB L100.2200 19-41 % Normal LY% 21.9 LAB L100.2300 0-10 % Normal MONO% 7.4 LAB L100.2400 0-5 % Normal EO% 4.3 LAB L100.2500 0-1 % Normal BASO% 0.3 LAB L100.2550 0.0-0.9 % Normal IM GRAN % 0.300 Result Comment: IG% - Immature Granulocytes (promyelocytes, myelocytes and metamyelocytes) > 1% indicates that a LEFT SHIFT is Present. LAB L100.2620 2.0-7.7 X10 3/uL Normal Absolute Neut 6.9 LAB L100.2720 0.83-4.51 X10 3/ul Normal Absolute Lymph 2.31 Performed By: #### L100.0100 #### [facility] [address] [place], [place], [address] BASIC METABOLIC Collected: 08/06/2018 Status: F Source: [place]IT[place] PROFILE (BMP) 4:55 AM [facility] REPOSITORY TYPE CODE TESTS RESULT OUT OF RANGE REFERENCE UNITS LAB L501.0100 74-106 mg/dL Normal GLU 89 Result Comment: Please note revised GLUCOSE reference range effective 2017. LAB L501.1000 7-18 mg/dL High BUN 26 LAB L501.1100 0.55-1.02 mg/dL High CREAT,SERUM 1.16 Result Comment: The validity of the calculated GFR AND GFRAA in patients over 70 years has not been determined. Clinical correlation is essential. LAB L501.1110 >60 mL/min Low EST GFR 48 Result Comment: Non- GFR Calc LAB L501.1115 >60 mL/min Low EST GFR - AA 58 Result Comment: GFR Calc LAB L501.1255 ml/min Normal Estimated CRCL 28.70 LAB L501.1300 10-20 RATIO High BUN/CRE 22.4 LAB L501.2200 8.5-10 mg/dL Normal .1 CA 9.2 LAB L501.5300 136-14 mmol/L High 5 NA 146 LAB L501.5600 3.5-5. mmol/L Normal 1 K 4.1 LAB L501.5900 98-107 mmol/L High CL 113 LAB L501.6100 21.0-3 mmol/L Normal 2.0 CO2 27.0 LAB L501.6200 5-15 Normal GAP 6 Performed By: #### L500.2500 #### [facility] [address] [place], [place], [address] OPERATIVE REPORT - Observed: 08/05/2018 Status: F Source: [place]ITING ENDOSCOPY 3:24 PM [facility] REPOSITORY [facility] Medical Records Department [address] [place] [address] Operative Report - Endoscopy MR#: [id number] Acct: [id number] Name: LI GRIFFITH Rep #: [id number] : 1935 82 From: Ciera Bazan MD PCP: Mariaa Fuller III, MD Status: ADM IN Patient Name: Li Griffith Procedure Date: 08/05/2018 3:03 PM Date of : 1935 Age: 82 Procedure: Upper GI endoscopy Indications: Surveillance procedure, Follow- up of acute duodenal ulcer with hemorrhage Providers: Ciera Bazan MD Medicines: See the Anesthesia note for documentation of the administered medications Patient Profile: Refer to note in patient chart for documentation of history and physical. Complications: No immediate complications. Procedure: Pre-Anesthesia Assessment: - After reviewing the risks and benefits, the patient was deemed in satisfactory condition to undergo the procedure. - Using IV propofol under the supervision of an bread room hand was determined to be medically necessary for this procedure based on review of the patient's medical history, medications, and prior anesthesia history. After obtaining informed consent, the endoscope was passed under direct vision. Throughout the procedure, the patient's blood pressure, pulse, and oxygen saturations were monitored continuously. The gastroscope was introduced through the mouth, and advanced to the duodenal bulb. The upper GI endoscopy was accomplished without difficulty. The patient tolerated the procedure well. Scope In: 3:16:30 PM Scope Out: 3:17:37 PM Total Procedure Duration Time 0 hours 1 minute 7 seconds Findings: One non-bleeding cratered duodenal ulcer with no stigmata of bleeding was found in the duodenal bulb, healed over. The lesion was 5 mm in largest dimension. Impression: - One non-bleeding duodenal ulcer with no stigmata of bleeding. - No specimens collected. Recommendation: - No aspirin, ibuprofen, naproxen, or other non-steroidal anti-inflammatory drugs. Procedure Code(s): --- Professional --- 35399, Esophagogastroduodenoscopy, flexible, transoral; diagnostic, including collection of specimen(s) by brushing or washing, when performed (separate procedure) Diagnosis Code(s): --- Professional --- K26.9, Duodenal ulcer, unspecified as acute or chronic, without hemorrhage or perforation K26.0, Acute duodenal ulcer with hemorrhage CPT copyright 2017 [employer] [place] [employer]. All rights reserved. The codes documented in this report are preliminary and upon hcc coders review may be revised to meet current compliance requirements. MD Ciera Zimmerman MD 08/05/2018 3:23:51 PM This report has been signed electronically. Number of Addenda: 0 Note Initiated On: 08/05/2018 3:03 PM 08/05/18 1523 Date Ciera Bazan MD Cosigner Signature: Date (if indicated) CC: Demar Schwartz MD; Dontrell Reeder DO; Mariaa Fuller III, MD; Ciera Bazan MD Date Dictated: 08/05/18 1503 Date Transcribed: Nutrition Specialist: LW Signed HH, HEMOGLOBIN AND Collected: 08/05/2018 Status: F Source: WHITING HEMATOCRIT 1:40 PM [facility] REPOSITORY TYPE CODE TESTS RESULT OUT OF RANGE REFERENCE UNITS LAB L100.1300 12.0-15.0 g/dl Low HGB 9.6 LAB L100.1400 37-47 % Low HCT 30.4 Performed By: #### L100.0600 #### [facility] [address] [place], [address] ECHOCARDIOGRAM COMPLETE Observed: 08/05/2018 Status: F Source: [place]IT[place] 12:13 PM [facility] REPOSITORY [facility] Cardiovascular Services [address] [place] [address] Echo Complete 08/05/1812 MR#: [id number] Acct: [id number] Name: LI GRIFFITH Tarsha Rep #: [id number] : 1935 82 From: Mark Hernandez MD Attending Dr: Dontrell Reeder DO Status: ADM IN Ordering Dr: Dontrell Reeder DO Date: 08/05/18 Location: ICU Sex: F C Admitted: 08/03/18 Reason For Study: Elevated Troponins Procedure This was a 2D Doppler, Color Flow transthoracic echocardiogram. Exam performed portable in ICU/CCU. Left Ventricle Normal LV size. Moderate concentric left ventricular hypertrophy. The estimated ejection fraction is 35 %. Moderately severe segmental systolic dysfunction (see wall motion). Septal motion consistent with IVCD. Infero-Basal: Akinetic. Basal inferoseptal: Akinetic. The rest of the wall segments are hypokinetic. Right Ventricle Normal RV size. ICD or pacer leads identified within the right ventricle. Normal systolic function. Atria The left atrium is moderately enlarged. Normal right atrium. ICD or pacer leads identified within the right atrium. Mitral Valve Bileaflet diffuse mitral valve thickening. Moderate (2+) eccentric mitral valve insufficiency. Tricuspid Valve Normal tricuspid valve. Moderate (2+) tricuspid valve insufficiency. Pulmonary artery systolic pressure is 36 mmHg. Aortic Valve Trisinus/trileaflet aortic valve. Mild focal aortic valve calcification. Mild (1+) eccentric aortic valve insufficiency. Pulmonic Valve Normal pulmonic valve. Mild (1+) pulmonic valve insufficiency. Great Vessels Calcified aortic root. The pulmonary artery is normal size. Inferior vena cava collapse with sniff. Pericardium/Pleural No pericardial effusion. MMode/2D Measurements AND Calculations LVIDd: 4.7 cm IVSd: 1.7 cm LVOT diam: 2.0 cm LVIDs: 4.1 cm LVPWd: 1.5 cm LVOT area: 3.2 cm2 RVDd: 4.6 cm FS: 12.4 % Ao root diam: 3.3 cm LAV(MOD-bp): 87.4 ml LVAd ap4: 35.2 cm2 LA dimension: 3.5 cm LAV(MOD-bp) Indexed: 57.0 ml/m2 EDV(MOD-sp4): 129.0 ml LAV(MOD-sp2): 86.3 ml EDV(sp4-el): 140.9 ml LAV(MOD-sp4): 77.2 ml LVAs ap4: 28.8 cm2 ESV(MOD-sp4): 95.4 ml ESV(sp4-el): 92.0 ml EF(MOD-sp4): 26.0 % EF(sp4-el): 34.7 % SV(MOD-sp4): 33.5 ml SV(sp4-el): 48.9 ml LA A4 area: 23.5 cm2 RA A4 area: 19.5 cm2 Time Measurements MV dec time: 0.25 sec Doppler Measurements AND Calculations MV E max nancy: 94.9 cm/sec Ao V2 max: 236.4 cm/sec AI max nancy: 440.9 cm/sec MV A max nancy: 38.8 cm/sec Ao max P.4 mmHg AI max P.7 mmHg MV E/A: 2.4 Ao V2 mean: 141.8 cm/sec AI dec slope: 248.1 cm/sec2 Ao mean P.7 mmHg AI P1/2t: 520.5 msec Ao V2 VTI: 37.9 cm YUMIKO(I,D): 2.0 cm2 YUMIKO(V,D): 2.1 cm2 LV V1 max: 152.5 cm/sec MR max nancy: 518.6 cm/sec SV(LVOT): 76.1 ml LV V1 max P.3 mmHg MR max P.6 mmHg LV V1 mean P.3 mmHg MR mean nancy: 415.0 cm/sec LV V1 mean: 81.9 cm/sec MR mean P.7 mmHg LV V1 VTI: 23.6 cm MR VTI: 188.8 cm TR max nancy: 240.0 cm/sec TR max P.5 mmHg Interpretation Summary Normal LV size. Moderate concentric left ventricular hypertrophy. The estimated ejection fraction is 35 %. Moderately severe segmental systolic dysfunction (see wall motion). The left atrium is moderately enlarged. Moderate (2+) eccentric mitral valve insufficiency. Moderate (2+) tricuspid valve insufficiency. Ordering Physician: Dontrell Reeder Referring Physician: LIA Fuller M.D. Performed By: John Saha RCS 08/05/18 1212 Date Mark Hernandez MD CC: Dontrell Fuller III, MD Date Dictated: 08/05/18911 Date Transcribed: 08/05/181211 Nutrition Specialist: Signed 12 LEAD ELECTROCARDIOGRAM Observed: 08/05/2018 Status: F Source: IZZY 9:11 AM [facility] REPOSITORY [facility] Cardiovascular Services [address] [place] [address] 12 Lead EKG 08/03/18 0252 MR#: [id number] Acct: [id number] Name: LI GRIFFITH Rep #: [id number] : 1935 82 From: Mark Hernandez MD Attending Dr: Dontrell Reeder DO Status: ADM IN Ordering Dr: Susana Thomas MD Date: 08/03/18 Location: ICU Sex: F C Admitted: 08/03/18 Test Reason : N/V Blood Pressure : / mmHG Vent. Rate : 060 BPM Atrial Rate : 077 BPM P-R Int : 000 ms QRS Dur : 158 ms QT Int : 444 ms P-R-T Axes : 000 -86 096 degrees QTc Int : 444 ms Ventricular-paced rhythm Biventricular pacemaker detected Abnormal ECG Confirmed by MARK HERNANDEZ MD ([id number]), news videotape editor MARIBEL VAZQUEZ ([id number]) on 08/05/2018 9:10:21 AM Referred By: OMARI Confirmed By:MARK HERNANDEZ MD 08/05/18909 Date Mark Hernandez MD CC: Susana Thomas MD; Dontrell Fuller III, MD Signed CBC W/DIFF, AUTOMATED Collected: 08/05/2018 Status: F Source: IZZY 4:40 AM [facility] REPOSITORY TYPE CODE TESTS RESULT OUT OF RANGE REFERENCE UNITS LAB L100.1000 4.4-11.0 K/mm3 Normal WBC 9.6 LAB L100.1200 4.2-5.4 M/mm3 Low RBC 2.46 LAB L100.1300 12.0-15.0 g/dl Low HGB 7.6 LAB L100.1400 37-47 % Low HCT 24.0 LAB L100.1500 81-99 fL Normal MCV 97.6 LAB L100.1600 27.0-32.0 pg Normal MCH 30.9 LAB L100.1700 32-36 g/gl Low MCHC 31.7 LAB L100.1810 11.6-14.6 % High RDW CV 17.1 LAB L100.1820 35.1-43.9 fl High RDW SD 60.4 LAB L100.1900 150-450 K/mm3 Normal PLT 173 LAB L100.2000 6.2-12.0 fl Normal MPV 9.2 LAB L100.2100 47-70 % High NEUT% 77.0 LAB L100.2200 19-41 % Low LY% 15.4 LAB L100.2300 0-10 % Normal MONO% 6.7 LAB L100.2400 0-5 % Normal EO% 0.4 LAB L100.2500 0-1 % Normal BASO% 0.3 LAB L100.2550 0.0-0.9 % Normal IM GRAN % 0.200 Result Comment: IG% - Immature Granulocytes (promyelocytes, myelocytes and metamyelocytes) > 1% indicates that a LEFT SHIFT is Present. LAB L100.2620 2.0-7.7 X10 3/uL Normal Absolute Neut 7.4 LAB L100.2720 0.83-4.51 X10 3/ul Normal Absolute Lymph 1.47 Performed By: #### L100.0100 #### [facility] [address] [facility] [place], [place], [address] BASIC METABOLIC Collected: 08/05/2018 Status: F Source: WHIT[place] PROFILE (BMP) 4:40 AM [facility] REPOSITORY TYPE CODE TESTS RESULT OUT OF RANGE REFERENCE UNITS LAB L501.0100 74-106 mg/dL Normal GLU 102 Result Comment: Fasting Glucose result from 100 to 125 mg/dL suggests IMPAIRED HOMEOSTASIS per A.D.A. criteria. Please note revised GLUCOSE reference range effective 2017. LAB L501.1000 7-18 mg/dL High BUN 39 LAB L501.1100 0.55-1.02 mg/dL High CREAT,SERUM 1.12 Result Comment: The validity of the calculated GFR AND GFRAA in patients over 70 years has not been determined. Clinical correlation is essential. LAB L501.1110 >60 mL/min Low EST GFR 50 Result Comment: Non- GFR Calc LAB L501.1115 >60 mL/min Normal EST GFR - AA 60 Result Comment: GFR Calc LAB L501.1255 ml/min Normal Estimated CRCL 31.16 LAB L501.1300 10-20 RATIO High BUN/CRE 34.8 LAB L501.2200 8.5-10 mg/dL Normal .1 CA 8.7 LAB L501.5300 136-14 mmol/L High 5 NA 148 LAB L501.5600 3.5-5. mmol/L Normal 1 K 4.6 LAB L501.5900 98-107 mmol/L High CL 116 LAB L501.6100 21.0-3 mmol/L Normal 2.0 CO2 26.0 LAB L501.6200 5-15 Normal GAP 6 Performed By: #### L500.2500 #### [facility] [address] [place], [place], [address] TROPONIN-I Collected: 08/04/2018 Status: F Source: [place]IT[place] 11:55 PM [facility] REPOSITORY Order Comment: 'TROP' Serial specimen #1, #2, #3, or #4: 3 TYPE CODE TESTS RESULT OUT OF RANGE REFERENCE UNITS LAB L501.4010 <0.045 ng/mL High 0.251 TROPONIN-I Result Comment: TROPONIN-I EXPECTED VALUES <0.045 Negative 0.045 - 0.590 Consistent with Cardiac Damage > OR = 0.600 Critical Value Not every elevated troponin is indicative of [place]. These values should be used with clinical judgement in examining the patient's clinical picture for diagnosis. To establish a diagnosis of [place] versus myocardial injury, there must be a demonstrated rise and/or fall in the troponin values, in addition to ischemic symptoms, EKG changes, new regional wall motion abnormality, and/or angiographical evidence. PLEASE NOTE: REFERENCE RANGES EDITED 18 Performed By: #### L501.4010 #### [facility] [address] [place], [place], [address] TROPONIN-I Collected: 08/04/2018 Status: F Source: [place]IT[place] 9:07 PM [facility] REPOSITORY Order Comment: 'TROP' Serial specimen #1, #2, #3, or #4: 2 TYPE CODE TESTS RESULT OUT OF RANGE REFERENCE UNITS LAB L501.4010 <0.045 ng/mL High 0.276 TROPONIN-I Result Comment: TROPONIN-I EXPECTED VALUES <0.045 Negative 0.045 - 0.590 Consistent with Cardiac Damage > OR = 0.600 Critical Value Not every elevated troponin is indicative of AZ. These values should be used with clinical judgement in examining the patient's clinical picture for diagnosis. To establish a diagnosis of AZ versus myocardial injury, there must be a demonstrated rise and/or fall in the troponin values, in addition to ischemic symptoms, EKG changes, new regional wall motion abnormality, and/or angiographical evidence. PLEASE NOTE: REFERENCE RANGES EDITED 18 Performed By: #### L501.4010 #### [facility] [address] [place], [place], [address] TROPONIN-I Collected: 08/04/2018 Status: F Source: WHITING 6:30 PM [facility] REPOSITORY TYPE CODE TESTS RESULT OUT OF RANGE REFERENCE UNITS LAB L501.4010 <0.045 ng/mL High 0.278 TROPONIN-I Result Comment: TROPONIN-I EXPECTED VALUES <0.045 Negative 0.045 - 0.590 Consistent with Cardiac Damage > OR = 0.600 Critical Value Not every elevated troponin is indicative of AZ. These values should be used with clinical judgement in examining the patient's clinical picture for diagnosis. To establish a diagnosis of AZ versus myocardial injury, there must be a demonstrated rise and/or fall in the troponin values, in addition to ischemic symptoms, EKG changes, new regional wall motion abnormality, and/or angiographical evidence. PLEASE NOTE: REFERENCE RANGES EDITED 18 Performed By: #### L501.4010 #### [facility] [address] [place], [address] CBC W/DIFF, AUTOMATED Collected: 08/04/2018 Status: F Source: WHITING 5:30 PM [facility] REPOSITORY TYPE CODE TESTS RESULT OUT OF RANGE REFERENCE UNITS LAB L100.1000 4.4-11.0 K/mm3 High WBC 17.9 LAB L100.1200 4.2-5.4 M/mm3 Low RBC 2.34 LAB L100.1300 12.0-15.0 g/dl Low HGB 7.4 LAB L100.1400 37-47 % Low HCT 23.9 LAB L100.1500 81-99 fL High MCV 102.1 LAB L100.1600 27.0-32.0 pg Normal MCH 31.6 LAB L100.1700 32-36 g/gl Low MCHC 31.0 LAB L100.1810 11.6-14.6 % High RDW CV 15.6 LAB L100.1820 35.1-43.9 fl High RDW SD 57.1 LAB L100.1900 150-450 K/mm3 Normal PLT 278 LAB L100.2000 6.2-12.0 fl Normal MPV 9.8 LAB L100.2100 47-70 % High NEUT% 74.2 LAB L100.2200 19-41 % Low LY% 15.8 LAB L100.2300 0-10 % Normal MONO% 5.5 LAB L100.2400 0-5 % Normal EO% 3.7 LAB L100.2500 0-1 % Normal BASO% 0.5 LAB L100.2550 0.0-0.9 % Normal IM GRAN % 0.300 Result Comment: IG% - Immature Granulocytes (promyelocytes, myelocytes and metamyelocytes) > 1% indicates that a LEFT SHIFT is Present. LAB L100.2620 2.0-7.7 X10 3/uL High Absolute Neut 13.3 LAB L100.2720 0.83-4.51 X10 3/ul Normal Absolute Lymph 2.82 Performed By: #### L100.0100 #### [facility] [address] [place], [address] OPERATIVE REPORT - Observed: 08/04/2018 Status: F Source: WHITING ENDOSCOPY 4:05 PM [facility] REPOSITORY [facility] Medical Records Department [address] [place] [address] Operative Report - Endoscopy MR#: [id number] Acct: [id number] Name: LI GRIFFITH Rep #: [id number] : 1935 82 From: Ciera Bazan MD PCP: Mariaa Fuller III, MD Status: ADM IN Patient Name: Li Griffith Procedure Date: 08/04/2018 3:27 PM Date of : 1935 Age: 82 Procedure: Upper GI endoscopy Indications: Iron deficiency anemia secondary to chronic blood loss Providers: Ciera Bazan MD Medicines: See the Anesthesia note for documentation of the administered medications Patient Profile: Refer to note in patient chart for documentation of history and physical. Complications: No immediate complications. Procedure: Pre-Anesthesia Assessment: - Prior to the procedure, a History and Physical was performed, and patient medications and allergies were reviewed. The patient is competent. The risks and benefits of the procedure and the sedation options and risks were discussed with the patient. All questions were answered and informed consent was obtained. Patient identification and proposed procedure were verified by the physician in the pre-procedure area. Mental Status Examination: alert and oriented. Airway Examination: normal oropharyngeal airway and neck mobility. ASA Grade Assessment: III - A patient with severe systemic disease. After reviewing the risks and benefits, the patient was deemed in satisfactory condition to undergo the procedure. The anesthesia plan was to use monitored anesthesia care (MAC). Immediately prior to administration of medications, the patient was re-assessed for adequacy to receive sedatives. The heart rate, respiratory rate, oxygen saturations, blood pressure, adequacy of pulmonary ventilation, and response to care were monitored throughout the procedure. The physical status of the patient was re-assessed after the procedure. After obtaining informed consent, the endoscope was passed under direct vision. Throughout the procedure, the patient's blood pressure, pulse, and oxygen saturations were monitored continuously. The gastroscope was introduced through the mouth, and advanced to the duodenal bulb. The upper GI endoscopy was accomplished without difficulty. The patient tolerated the procedure well. Scope In: 3:39:10 PM Scope Out: 3:57:10 PM Total Procedure Duration Time 0 hours 18 minutes 0 seconds Findings: The examined esophagus was normal. No gross lesions were noted in the stomach, large amount of blood in stomach. One oozing cratered duodenal ulcer with adherent clot was found in the duodenal bulb. The lesion was 5 mm in largest dimension. Area was successfully injected with 4 mL of a 1:10,000 solution of epinephrine all around the ulcer for hemostasis. Estimated blood loss was minimal. Impression: - Normal esophagus. - No gross lesions in the stomach. - One oozing duodenal ulcer with adherent clot. Injected with epinephrine - No specimens collected. Recommendation: - Repeat upper endoscopy tomorrow for surveillance. - No anticoagulation, aspirin, ibuprofen, naproxen, or other non-steroidal anti-inflammatory drugs. Procedure Code(s): --- Professional --- 60568, Esophagogastroduodenoscopy, flexible, transoral; with control of bleeding, any method Diagnosis Code(s): --- Professional --- K26.4, Chronic or unspecified duodenal ulcer with hemorrhage D50.0, Iron deficiency anemia secondary to blood loss (chronic) CPT copyright 2017 [employer] [employer]. All rights reserved. The codes documented in this report are preliminary and upon hcc coders review may be revised to meet current compliance requirements. MD Ciera Zimmerman MD 08/04/2018 4:05:45 PM This report has been signed electronically. Number of Addenda: 0 Note Initiated On: 08/04/2018 3:27 PM 08/04/18 1605 Date Ciera Bazan MD Cosigner Signature: Date (if indicated) CC: Dontrell Reeder DO; Mariaa Fullre III, MD; Ciera Bazan MD Date Dictated: 08/04/18 1527 Date Transcribed: Nutrition Specialist: LW Signed HH, HEMOGLOBIN AND Collected: 08/04/2018 Status: F Source: IZZY HEMATOCRIT 5:25 AM [facility] REPOSITORY TYPE CODE TESTS RESULT OUT OF RANGE REFERENCE UNITS LAB L100.1300 12.0-15.0 g/dl Low HGB 8.2 LAB L100.1400 37-47 % Low HCT 25.9 Performed By: #### L100.0600 #### [facility] [address], [address] BASIC METABOLIC Collected: 08/04/2018 Status: F Source: IZZY PROFILE (BMP) 5:25 AM [facility] REPOSITORY TYPE CODE TESTS RESULT OUT OF RANGE REFERENCE UNITS LAB L501.0100 74-106 mg/dL Normal GLU 94 Result Comment: Please note revised GLUCOSE reference range effective 2017. LAB L501.1000 7-18 mg/dL High BUN 47 LAB L501.1100 0.55-1.02 mg/dL High CREAT,SERUM 1.25 Result Comment: The validity of the calculated GFR AND GFRAA in patients over 70 years has not been determined. Clinical correlation is essential. LAB L501.1110 >60 mL/min Low EST GFR 44 Result Comment: Non- GFR Calc LAB L501.1115 >60 mL/min Low EST GFR - AA 53 Result Comment: GFR Calc LAB L501.1255 ml/min Normal Estimated CRCL 27.92 LAB L501.1300 10-20 RATIO High BUN/CRE 37.6 LAB L501.2200 8.5-10 mg/dL Normal .1 CA 9.2 LAB L501.5300 136-14 mmol/L High 5 NA 146 LAB L501.5600 3.5-5. mmol/L Normal 1 K 4.6 LAB L501.5900 98-107 mmol/L High CL 113 LAB L501.6100 21.0-3 mmol/L Normal 2.0 CO2 26.0 LAB L501.6200 5-15 Normal GAP 7 Performed By: #### L500.2500 #### [facility] [address] [place], [place], [address] HH, HEMOGLOBIN AND Collected: 08/03/2018 Status: F Source: IZZY HEMATOCRIT 10:00 PM [facility] REPOSITORY TYPE CODE TESTS RESULT OUT OF RANGE REFERENCE UNITS LAB L100.1300 12.0-15.0 g/dl Low HGB 7.2 LAB L100.1400 37-47 % Low HCT 22.4 Performed By: #### L100.0600 #### [facility] [address] [place], [address] HISTORY AND PHYSICAL Observed: 08/03/2018 Status: F Source: IZZY EXAM 7:45 AM [facility] REPOSITORY [facility] Medical Records Department [address] [place] [address] History and Physical 08/03/18 0653 MR#: [id number] Acct: [id number] Name: LI GRIFFITH Rep #: [id number] : 1935 82 From: Messi Hendricks MD PCP: Mariaa Fuller III, MD Status: ADM IN Y Location: [place] [address] Problem List (1) Acute blood loss anemia Status: Acute (2) COPD (chronic obstructive pulmonary disease) Status: Chronic History of Present Illness Date of Admission: 08/03/18 Chief Complaint: melena, hematochezia; and coffee ground emesis The patient is a 82 year old F with a significant history of CAD status post CABG 12 years ago and stents about 15 years ago and on aspirin and Plavix; PAD status post balloon angioplasty; goiter status post thyroidectomy and on Synthroid; parathyroid tumor; permanent pacemaker; heart failure on Lasix and digoxin; hypertension who presented with a 1 day history of melena; diarrhea; hematochezia and coffee-ground emesis. Associated with her symptoms is a Vertigo; and headaches. She reports taking medicine for vertigo that made her sleep. Patient denies taking any NSAIDs use. She reports that occasionally she taking Excedrin. Indeed when her symptoms started she had some headache for which reason she took some Excedrin. Past Medical History Past Medical History (Chronic Problems): Chronic Problems (Last Reviewed 08/03/18 @ 07:33 by Messi Hendricks MD) Arrhythmia (Chronic) COPD (chronic obstructive pulmonary disease) (Chronic) Coronary artery disease (Chronic) Peripheral arterial disease (Chronic) Medical History: Medical History (Last Reviewed 08/03/18 @ 07:33 by Messi Hendricks MD) Respiratory abnormality (Acute) J98.9 CAD (coronary artery disease) I25.10 History of breast cancer Z85.3 Hypothyroidism E03.9 PAD (peripheral artery disease) I73.9 Pacemaker Z95.0 COPD (chronic obstructive pulmonary disease) J44.9 HTN (hypertension) I10 Allergies acetaminophen [From Percocet] Allergy (Verified 08/03/18 02:29) Other alendronate sodium [From Fosamax] Allergy (Verified 08/03/18 02:29) Other nitrofurantoin [From Macrodantin] Allergy (Verified 08/03/18 02:29) Rash oxycodone [From Percocet] Allergy (Verified 08/03/18 02:29) Other quinapril [From Accupril] Allergy (Verified 08/03/18 02:29) Rash atorvastatin [From Lipitor] Adverse Reaction (Verified 08/03/18 02:29) Pain in joints diclofenac [From Arthrotec 50] Adverse Reaction (Verified 08/03/18 02:29) Upset Stomach misoprostol [From Arthrotec 50] Adverse Reaction (Verified 08/03/18 02:29) Upset Stomach Home Medications: Ambulatory Orders Medication Instructions Recorded Clopidogrel Bisulfate [Plavix] 75 mg PO DAILY 12/15/16 Surgical History: Surgical History (Last Reviewed 08/03/18 @ 07:33 by Messi Hendricks MD) History of coronary artery bypass graft x 3 Z95.1 S/P peripheral artery angioplasty with stent placement Z95.820 Status post peripheral artery angioplasty Z98.62 Lives: Spouse/ Significant Other Smoking Status: Never smoker - *Family History Maternal Family History: Family History (Last Reviewed 08/03/18 @ 07:34 by Messi Hendricks MD) Sister Breast cancer Hypertension History Items: No pertinent history Review of Systems Constitutional: Reports: Anorexia. Denies: Chills, Fever, Weight Change HEENT: Reports: Head Aches - left supra orbital and left frontal. Denies: Sinus Congestion, Sinus Drainage Cardiovascular: Denies: Chest Pain, Palpitations Respiratory: Denies: Cough, Shortness of breath at rest, Sputum production Gastrointestinal: Reports: Abdominal Pain, Hematochezia, Nausea, Vomiting Genitourinary: Denies: Dysuria Musculoskeletal: Denies: Joint Pain, Joint Tenderness Skin: Denies: Rash, Wounds Neurological: Denies: Numbness, Tingling, Focal weakness Psychiatric: Denies: Anxiety, Depression, Homicidal Ideations, Suicidal Ideations Hematologic/ Lymphatic: Denies: Easy Bruising, Easy Bleeding VTE Information - Inpt Only VTE Present on Admission: No VTE Mechan Device Prophylaxis: SCD's, None VTE Pharm Prophylaxis ordered?: No Patient Problems: Active and Suspected Problems (Last Reviewed 08/03/18 @ 07:33 by Messi Hendricks MD) Acute blood loss anemia (Acute) - Physical Exam General: Alert, Oriented x3, Cooperative HEENT: Atraumatic, PERRLA, EOMI, Normocephalic Neck: Supple, No JVD, Negative Carotid Bruits Lungs: Clear to auscultation, Normal air movement Cardiovascular: Regular rate, No murmurs Abdomen: Bowel Sounds Present, Soft, Non Tender, Tender - supra-pubic tenderness that might be due to need to void at the time of examination, - - Rectal exams with melena; and small external hemorrhoid. Extremities: No edema, Capillary Refill Less than 3 Seconds Skin: No rashes, No breakdown Musculoskeletal: No Tenderness to Palpation of Joints or Extremities Neurological: Facial Droop Psych/Mental Status: Normal Affect, Appropriate Vital Signs Temp Pulse Resp BP Pulse Ox 97.6 F L 63 16 158/68 H 99 08/03/18 06:44 08/03/18 06:44 08/03/18 06:44 08/03/18 06:44 08/03/18 06:44 Oxygen Delivery Method Room Air Weight: 54 kg Body Mass Index (BMI) 21.7 Microbiology Past 72 Hours 08/03/18 02:52 Stool Occult Blood (JERICA) - Final Stool Laboratory Tests Past 24 Hrs WBC 9.1 Assessment/Plan All Active Problems (Last Reviewed 08/03/18 @ 07:33 by Messi Hendricks MD) Acute blood loss anemia (Acute) Respiratory abnormality (Acute) CAP (community acquired pneumonia) (Acute) Severe sepsis (Acute) Peripheral vascular disease (Acute) The patient is a 82 year old F with a significant history of CAD status post CABG 12 years ago and stents about 15 years ago and on aspirin and Plavix; PAD status post bilateral balloon angioplasty; goiter status post thyroidectomy and on Synthroid; parathyroid tumor; permanent pacemaker; heart failure on Lasix and digoxin; hypertension who presented with a 1 day history of melena; diarrhea; hematochezia and coffee-ground emesis and found to have elevated BUN and elevated creatinine consistent with acute blood loss anemia secondary to likely upper GI bleed. Acute blood loss anemia With elevated BUN and creatinine likely this is upper GI bleed Patient received normal saline 1 L bolus at emergency department. Continue gentle fluid hydration. Will hold her Plavix and aspirin. Initial occult stool at the emergency department was negative. However her stool was black and tarry with reddish stint that looks grossly that she is bleeding. IV and IV Zofran for nausea. Protonix bolus and drip ordered. SUNI on CKD stage III. Admission creatinine was 1.30. Review of old records shows a creatinine around 1.0. BUN elevated likely due to GI bleed Likely pre-renal from acute blood loss anemia Gentle IV hydration. Avoid nephrotoxics Trend BMP Heart failure Because of her acute kidney injury will hold digoxin for now. Patient received normal saline 1 L the emergency department. Maintenance normal saline at 75 mL of a one-to-one has been ordered. Lasix and Aldactone has been held at this time. Clinical monitoring to make sure the patient is not thrown into heart failure. Digoxin level ordered. Hypertension On admission blood pressure was not within goal. Because of n.p.o. status will hold all her antihypertensive medication. Labetalol as needed for hypertension Permanent pacemaker Pacing appropriately PAD Status post balloon angioplasty and left leg. Patient states that she is here to schedule for another interventional procedure in her right leg. Continue outpatient follow-up. Hypothyroidism We will hold her home Synthroid. Will resume when patient is no longer n.p.o. Parathyroid Tumor Patient is following up with PCP. Continue outpatient follow-up. Insomnia Ativan nightly as needed continued. COPD Stable DVT Prophylaxis SCD No chemical prophylaxis because of GI bleed Code Visit Inpatient E AND M: [id number] Init Hosp L3 08/03/18 0745 <Electronically signed by Messi Hendricks MD> Date Messi Hendricks MD Cosigner Signature: Date (if applicable) CC: Mariaa Fuller III, MD; Messi Hendricks MD Signed HH, HEMOGLOBIN AND Collected: 08/03/2018 Status: F Source: IZZY HEMATOCRIT 7:25 AM [facility] REPOSITORY Order Comment: Comments: every 8 hours beginning now TYPE CODE TESTS RESULT OUT OF RANGE REFERENCE UNITS LAB L100.1300 12.0-15.0 g/dl Low HGB 8.9 LAB L100.1400 37-47 % Low HCT 27.5 Performed By: #### L100.0600 #### [facility] [address] [place], [address] DIGOXIN LEVEL Collected: 08/03/2018 Status: F Source: IZZY 7:25 AM [facility] REPOSITORY TYPE CODE TESTS RESULT OUT OF RANGE REFERENCE UNITS LAB L501.7510 0.80-2.00 ng/mL Normal DIG 0.94 Performed By: #### L501.7510 #### [facility] [address] [place], [address] Observed: 08/03/2018 Status: F Source: WHITING STOOL OCCULT BLOOD 6:40 AM [facility] IFOB REPOSITORY Order Date: 08/03/18 STOB iFOB Occult Blood Negative Performed By: #### M100.7900 #### [facility] [address] [facility] [place], [address] EMERGENCY DEPARTMENT Observed: 08/03/2018 Status: F Source: IZZY SUMMARY 6:36 AM [facility] REPOSITORY [facility] Medical Records Department [address] [address] Emergency Department Summary 08/03/18 0249 MR#: [id number] Acct: [id number] Name: LI GRIFFITH Rep #: [id number] : 1935 82 From: Susana Thomas MD PCP: Mariaa Fuller III, MD Status: ADM IN - ER Visit Summary Date of Service: 08/03/18 Chief Complaint: Vomiting and diarrhea History of Present Illness: The patient is a 82 F presenting with vomiting and diarrhea. This started yesterday afternoon. She states she had a black stool followed by blood in her stool. She later developed dark emesis. Just prior to arrival she felt lightheaded and fell to the floor. She is not sure if she completely passed out. She denies injury. She complains of mild abdominal pain. Denies other complaints. She is on aspirin and Plavix. Physical Examination: Vitals are stable. Patient is afebrile. Alert no acute distress. HEENT exam is unremarkable. Neck is supple. Lungs are clear and equal bilaterally. Heart is regular rate and rhythm. Abdomen is soft mild left lower quadrant tenderness with no rebound or guarding Extremities are unremarkable. Skin is warm and dry. No focal neurologic deficit. Remainder of exam is unremarkable. Emergency Department Course and Treatment: Patient was given IV fluids, Zofran. CT abdomen with IV only contrast shows diverticulosis coli. No diverticulitis or other colitis identified. Cardiomegaly with permanent transvenous pacemaker in place. Chronic findings include atrophic right kidney, small hiatal hernia, and atherosclerotic, ectatic aorta. CBC shows hemoglobin 10.0. Chemistries show glucose 177, BUN 68, creatinine 1.30. INR is 1.2. Stool guaiac is negative although this may be a false negative. Troponin 0.017. Unable to pass NG tube on multiple attempts. She has had no vomiting in the emergency department. Discussed with Dr. Shaikh and the hospitalist for admission. Disposition: Admission Impression: Upper GI bleed This note was generated with [employer] dictation software. It may contain incorrect words, spelling, and punctuation that were not noted in review of the chart prior to signing ED Disposition - Plan for ED Patient: Chief Complaint: Nausea/Vomiting/Diarrhea Referrals: Mariaa Fuller III, MD [Primary Care Provider] - What to do if you have Problems For any increased pain, shortness of breath, bleeding, nausea or vomiting, chest pain, or any unexpected problems, contact your Primary Care Provider. Call [facility] ([phone]) or report to the closest Emergency Room. Call 911 if necessary. 08/03/18 0636 <Electronically signed by Susana Thomas MD> Date Susana Thomas MD Cosigner Signature (If Indicated): Date CC: Mariaa Fuller III, MD Observed: 08/03/2018 Status: F Source: IZZY STOOL OCCULT BLOOD 2:52 AM [facility] IFOB REPOSITORY Order Date: 08/03/18 STOB iFOB Occult Blood Negative Performed By: #### M100.7900 #### [facility] [address] [place], [address] ABDOMEN/PELVIS W IV CONT Observed: 08/03/2018 Status: F Source: IZZY ONLY 2:47 AM [facility] REPOSITORY [facility] Imaging Services [address] [place] [address] Abdomen/Pelvis W IV Cont ONLY MR#: [id number] Acct: [id number] Name: LI GRIFFITH Rep #: [id number] : 1935 F 82 From: Brant Hatfield MD PCP: Mariaa Fuller III, MD Status: REG ER Study: Abdomen/Pelvis W IV Cont ONLY Date of Exam: 08/03/18 Exam# [id number] Ordering Dr: Susana Thomas MD HISTORY: NAUSEA,VOMITING AND DIARRHEA SINCE LAST NIGHT,DARK TARRY STOOL,VOMITED BLOODHX:CAD,CHF,COPD,HTN,BREAST AND SKIN CANCERSURGERY:APPENDECTOMY,CABG/STENT,PACEMAKER,BRENDA TECHNIQUE: Helically acquired images were obtained of the abdomen and pelvis following IV contrast. A radiation dose optimization technique was used for this scan. IV Contrast dosage and agent: 100 cc Isovue-300 contrast Oral contrast: None. COMPARISON: None FINDINGS: Lower thorax: No pleural effusion. Cardiomegaly with permanent transvenous pacemaker and a right atrial lead and biventricular pacing. No pericardial effusion. Previous median sternotomy. Small hiatal hernia. 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 The spleen, pancreas, gallbladder, and biliary system show no CT abnormality. Both kidneys are normal in position. Considerable right renal atrophy. Bilateral renal excretion of contrast without hydronephrosis or suspicious renal lesion. Adrenal glands are not enlarged. Abdominal aorta is diffusely atherosclerotic and the upper aorta is ectatic at the thoracoabdominal junction. No ascites or retroperitoneal lymphadenopathy. GI tract: No obstruction. Numerous colonic diverticula without CT findings of diverticulitis or other colitis. No pericecal inflammatory changes. Pelvis: Hysterectomy. Urinary bladder is well distended with estimated volume of 250 cc. The pelvis shows no free fluid or lymphadenopathy. Bones: No acute osseous abnormality. Mild lumbar levoscoliosis. CT/Abdomen/Pelvis W IV Cont ONLY IMPRESSION: 1. Diverticulosis coli. No diverticulitis or other colitis identified. 2. Cardiomegaly with permanent transvenous pacemaker in place. 3. Chronic findings include atrophic right kidney, small hiatal hernia, and atherosclerotic, ectatic aorta. Individualized dose optimization techniques were used for this CT. at 0451 Reported and signed by: Brant Hatfield MD Electronically Signed: Brant Hatfield, at 4:49 EST Tel , Service support , CC: Susana Thomas MD; Mariaa Fuller III, MD Nutrition Specialist: Signed CBC W/DIFF, AUTOMATED Collected: 08/03/2018 Status: F Source: IZZY 2:45 AM [facility] REPOSITORY TYPE CODE TESTS RESULT OUT OF RANGE REFERENCE UNITS LAB L100.1000 4.4-11.0 K/mm3 Normal WBC 9.1 LAB L100.1200 4.2-5.4 M/mm3 Low RBC 3.09 LAB L100.1300 12.0-15.0 g/dl Low HGB 10.0 LAB L100.1400 37-47 % Low HCT 31.7 LAB L100.1500 81-99 fL High MCV 102.6 LAB L100.1600 27.0-32.0 pg High MCH 32.4 LAB L100.1700 32-36 g/gl Low MCHC 31.5 LAB L100.1810 11.6-14.6 % Normal RDW CV 13.2 LAB L100.1820 35.1-43.9 fl High RDW SD 49.5 LAB L100.1900 150-450 K/mm3 Normal PLT 305 LAB L100.2000 6.2-12.0 fl Normal MPV 9.9 LAB L100.2100 47-70 % High NEUT% 70.7 LAB L100.2200 19-41 % Normal LY% 21.8 LAB L100.2300 0-10 % Normal MONO% 4.5 LAB L100.2400 0-5 % Normal EO% 2.3 LAB L100.2500 0-1 % Normal BASO% 0.4 LAB L100.2550 0.0-0.9 % Normal IM GRAN % 0.300 Result Comment: IG% - Immature Granulocytes (promyelocytes, myelocytes and metamyelocytes) > 1% indicates that a LEFT SHIFT is Present. LAB L100.2620 2.0-7.7 X10 3/uL Normal Absolute Neut 6.4 LAB L100.2720 0.83-4.51 X10 3/ul Normal Absolute Lymph 1.98 Performed By: #### L100.0100 #### [facility] [address] [place], [address] PROTHROMBIN TIME W/INR Collected: 08/03/2018 Status: F Source: WHITING 2:45 AM [facility] REPOSITORY TYPE CODE TESTS RESULT OUT OF RANGE REFERENCE UNITS LAB L300.4150 11.7-14.9 SECONDS Normal PROTIME 14.9 LAB L300.4200 Normal INR 1.2 Performed By: #### L300.3900, L300.4310 #### [facility] [address] [place], [address] PARTIAL THROMBOPLAST Collected: 08/03/2018 Status: F Source: WHITING TIME 2:45 AM [facility] REPOSITORY TYPE CODE TESTS RESULT OUT OF REFERENCE UNITS RANGE LAB L300.4310 24.1-36.2 Seconds Low PTT 23.1 Performed By: #### L300.3900, L300.4310 #### [facility] [address] [place], [address] BASIC METABOLIC Collected: 08/03/2018 Status: F Source: WHITING PROFILE (BMP) 2:45 AM [facility] REPOSITORY TYPE CODE TESTS RESULT OUT OF RANGE REFERENCE UNITS LAB L501.0100 74-106 mg/dL High GLU 177 Result Comment: Fasting Glucose result greater than or equal to 126 mg/dL suggests DIABETES MELLITUS per A.D.A. criteria. Please note revised GLUCOSE reference range effective 2017. LAB L501.1000 7-18 mg/dL High BUN 68 LAB L501.1100 0.55-1.02 mg/dL High CREAT,SERUM 1.30 Result Comment: The validity of the calculated GFR AND GFRAA in patients over 70 years has not been determined. Clinical correlation is essential. LAB L501.1110 >60 mL/min Low EST GFR 42 Result Comment: Non- GFR Calc LAB L501.1115 >60 mL/min Low EST GFR - AA 51 Result Comment: GFR Calc LAB L501.1255 ml/min Normal Estimated CRCL 26.84 LAB L501.1300 10-20 RATIO High BUN/CRE 52.3 LAB L501.2200 8.5-10 mg/dL Normal .1 CA 9.9 LAB L501.5300 136-14 mmol/L Normal 5 NA 143 LAB L501.5600 3.5-5. mmol/L Normal 1 K 5.1 LAB L501.5900 98-107 mmol/L Normal CL 107 LAB L501.6100 21.0-3 mmol/L Normal 2.0 CO2 27.0 LAB L501.6200 5-15 Normal GAP 9 Performed By: #### L500.2500, L501.4010 #### [facility] [address] [place], [place], [id number] TROPONIN-I Collected: 08/03/2018 Status: F Source: WHITING 2:45 AM [facility] REPOSITORY TYPE CODE TESTS RESULT OUT OF RANGE REFERENCE UNITS LAB L501.4010 <0.045 ng/mL Normal 0.017 TROPONIN-I Result Comment: TROPONIN-I EXPECTED VALUES <0.045 Negative 0.045 - 0.590 Consistent with Cardiac Damage > OR = 0.600 Critical Value Not every elevated troponin is indicative of AZ. These values should be used with clinical judgement in examining the patient's clinical picture for diagnosis. To establish a diagnosis of AZ versus myocardial injury, there must be a demonstrated rise and/or fall in the troponin values, in addition to ischemic symptoms, EKG changes, new regional wall motion abnormality, and/or angiographical evidence. PLEASE NOTE: REFERENCE RANGES EDITED 18 Performed By: #### L500.2500, L501.4010 #### [facility] [address] [place], [place], [address] TYPE AND SCREEN Collected: 08/03/2018 Status: F Source: WHITING 2:45 AM [facility] REPOSITORY Order Comment: CMV NEG? N Number of units to transfuse: 1 Reason for Ordering Blood: Acute Are the blood/blood products to be transfused? Y Is the patient having/had surgery? N Give When? When Ready Irradiated? N Leukodepleted? Y TYPE CODE TESTS RESULT OUT OF RANGE REFERENCE UNITS LAB B10.0800 A Normal BLOOD TYPE GEL POSITIVE LAB B100.4000 Normal Antibody NEGATIVE Screen Performed By: #### B101.7450 #### [facility] [address] [place], [address] RC Collected: 08/03/2018 Status: F Source: WHITING 2:45 AM [facility] REPOSITORY TYPE CODE TESTS RESULT OUT OF REFERENCE UNITS RANGE LAB U100.0000 [id number] TRANSFUSED PRODUCT: T AND S with Crossmatch, Red Cells COUNT: 1 Performed By: #### U100.0000 #### [facility] - refer to report for specific site RC Collected: 08/03/2018 Status: F Source: WHITING 2:45 AM [facility] REPOSITORY TYPE CODE TESTS RESULT OUT OF REFERENCE UNITS RANGE LAB U100.0000 [id number] TRANSFUSED PRODUCT: T AND S with Crossmatch, Red Cells COUNT: 2 Performed By: #### U100.0000 #### [facility] - refer to report for specific site PROGRESS Observed: 08/02/2018 Status: COMPLETED Source: MAXIE 7:[address] [facility] REPOSITORY HNO ID: [id number] Author: Anoop Ocasio Service: (none) Author Type: Physician Type: Progress Notes Filed: 08/02/2018 7:19 PM Note Text: Thank you for an Endocrinology E-Consult for your 82 year old female patient, Li Griffith for evaluation/treatment of hyperparathyroidism. ? Your clinical question: ?previous endo consult recommended surgery for parathyroid adenoma, but patient insists that she was told by edge brusher that she is not a surgical candidate. She developed rash to sensipar. ?She wants a different oral medication for treatment. Please review the telephone encounters in the patient's chart. Comments and recommendations: Patient continues to have mild hypercalcemia per labs done earlier today. PTH and 25 [place] vitamin D remain in process. She previously had normal vitamin D levels. Lumbar spine x-rays were ordered on Jul 22, 2018 Since the patient is not a good surgical candidate and did not tolerate surgery, the main treatment in this case is to manage her osteoporosis Estimated GFR is 43. Oral bisphosphonate is not favored (+ side effect reports in one of the phone encounters, on Jul 21, 2018). I question if she is tolerating Actonel (in place of Fosamax). Of note, she is also on Mobic; which is another reason for GI side effects. This is also another reason for monitoring kidney functions. The best available option is treatment with Prolia (Instead of Actonel), after ensuring adequate intake of calcium and vitamin D (Due to patient's CKD, she is at higher risk for hypocalcemia). A non-urgent, next available appointment should be scheduled; this was requested on Jul 22, 2018 but not scheduled yet. Please don't hesitate to contact us if you have further questions. Sincerely, Anoop Ocasio MD, DEVYN BASIC METABOLIC PANL Collected: 08/02/2018 Status: F Source: MAXIE 10:48 AM [facility] REPOSITORY TYPE CODE TESTS RESULT OUT OF REFERENCE UNITS RANGE LAB GLU 74-99 mg/dL High Glucose 106 Result Comment: The [place] Diabetes Association (ADA) provides guidance for cutoff values for fasting glucose and random glucose. The ADA defines fasting as no caloric intake for at least 8 hours. Fas ting plasma glucose results between 100 to 125 mg/dL indicate increased risk for diabetes (prediabetes). Fasting plasma glucose results greater than or equal to 126 mg/dL meet the criteria for diagnosis of diabetes. In the absence of unequivocal hyperglycemia, results should be confirmed by repeat testing. In a patient with classic symptoms of hyperglycemia or hyperglycemic crisis, random plasma glucose results greater than or equal to 200 mg/dL meet the criteria for diagnosis of diabetes. Reference: Standards of Medical Care in Diabetes 2016, [place] Diabetes Association. Diabetes Care. 2016.39(Suppl 1). LAB BUN 7-21 mg/dL BUN High 28 LAB CRET 0.58-0.96 mg/dL Creatinine High 1.20 LAB NA 136-144 mmol/L Sodium 140 LAB K 3.7-5.1 mmol/L Potassium 5.0 LAB CL 97-105 mmol/L Chloride 102 LAB CO2 22-30 mmol/L CO2 25 LAB AGAP 9-18 mmol/L Anion Gap 13 LAB CA 8.5-10.2 mg/dL Calcium, High Total 10.9 LAB GFRAA eGFR- Amer. 52 LAB GFRNAA . eGFR-All Other Races 43 Result Comment: eGFR (Estimated GFR) Units of measure: mL/min/1.73 meters squared eGFR is derived from the reexpressed MDRD Study equation using the following parameters: serum creatinine, age, gender and race. The creatinine assay has been calibrated to be traceable to IDMS. An eGFR <60 mL/min/1.73m2 for >3 months is consistent with chronic kidney disease. Refer to KDOQI guidelines for clinical interpretation. In patients with unstable renal function, e.g. those with acute kidney injury, the eGFR may not accurately reflect actual GFR. Performed By: #### BMP, TSH, VITD, PTHI #### [facility] [place] [facility] [employer] [employer] [place] [address] TSH Collected: 08/02/2018 Status: F Source: MAXIE 10:[address] [facility] REPOSITORY TYPE CODE TESTS RESULT OUT OF RANGE REFERENCE UNITS LAB TSH 0.400-5.500 uU/mL TSH 4.010 Performed By: #### BMP, TSH, VITD, PTHI #### [facility] [place] [facility] [employer] [place] [address] VITAMIN D 25 HYDROXY Collected: 08/02/2018 Status: F Source: MAXIE 10:[address] [facility] REPOSITORY TYPE CODE TESTS RESULT OUT OF REFERENCE UNITS RANGE LAB VITD 31.0-80.0 ng/mL Vitamin D 25 42.5 Hydroxy Result Comment: Classification of 25 [place] Vitamin D status: Insufficiency/Moderate Deficiency: < or = 30 ng/mL Sufficiency/Optimal Levels: 31 to 80 ng/mL Toxicity: > 100 ng/mL Test performed by chemiluminescent immunoassay. Performed By: #### BMP, TSH, VITD, PTHI #### [facility] [place] [facility] [employer] [employer] [place] [address] PTH, INTACT Collected: 08/02/2018 Status: F Source: MAXIE 10:48 [facility] REPOSITORY TYPE CODE TESTS RESULT OUT OF REFERENCE UNITS RANGE LAB PTH 15-65 pg/mL High PTH, Intact 112 Performed By: #### BMP, TSH, VITD, PTHI #### [facility] [employer] [address] [place], [place] [address] PROGRESS Observed: 07/21/2018 Status: COMPLETED Source: MAXIE 1:54 PM [facility] REPOSITORY HNO ID: [id number] Author: Anoop Ocasio Service: (none) Author Type: Physician Type: Progress Notes Filed: 07/21/2018 2:29 PM Note Text: Thank you for requesting an Endocrinology E-Consult for your 82 year old female patient, Li Griffith for evaluation/treatment of hyperparathyroidism. ? Your clinical question: ?patient with hyperparathyroidism developed a rash while on sensipar. ?Any recommendations regarding management? Comments/pertinent chart review: Patient has associated stage III CKD. She has normal 25 [place] vitamin D. Based on labs May 10 and May 11, 2017: Calcium clearance/creatinine clearance ratio is 0.014; which is in favor of primary hyperparathyroidism (Simultaneous urine sodium was not done). Of note, the patient is also on furosemide + spironolactone A parathyroid sistamibi scan was perfored on March,. It showed persistent area of increased uptake just to left of midline near the thoracic inlet consistent with a parathyroid adenoma. BMD measured per DEXA done Apr, 2017 showed osteoporosis. Lowest T-score was in the lumbar spine, -2.6 There was significant increase in BMD compared with 2008 (13.3%). It is not clear to me if this was related to improvement in association with therapy versus arthritis versus compression fractures. Curvature of the lumbar spine was noted on DEXA images. However, those images cannot be used for diagnostic purposes. Forearm BMD corresponded to a T-Score of -2.5 Please refer to phone encounter by Dr. Raymond dated 04/19/2018 Patient has associated thyroid nodule. FNA was suspicious of thyroid cancer. Afirma testing was suspicious with associated risk of cancer of 50% The option of surgery was discuss with patient by Dr. Raymond (Endocrine Surgeon). There was no reply with the response and patient's I am including Dr. Raymond on this encounter to verify. I could not locate pathology report in [facility] (outside study?) Recommendations: 1. Obtain lumbar spine x-rays for evaluation of compression fractures (Xray lumbar limited 2 view Flex/Ext) 2. If holding diuretics is possible, hold diuretics for 1- 2 weeks and obtain 24 hour urine collection for creatinine, sodium and calcium. This is to confirm the diagnosis of primary hyperparathyroidism versus hypocalciuric hypercalcemia. 3. Is the patient a good surgical candidate? I yes, surgery is an option. I know that previously the patient and Dr. Raymond opted to defer surgery. 4. Consider treatment for osteoporosis. 5. I am forwarding this encounter to Dr. Raymond to verify her comments in encounter dated 04/19/2018 related to a suspicious thyroid nodule. I could not find pathology report 6. A non-urgent, next available appointment should be scheduled Please don't hesitate to contact us if you have further questions. Sincerely, Anoop Ocasio MD, DEVYN SURGERY VISIT REPORT Observed: 07/20/2018 Status: F Source: WHITING 6:47 PM [facility] REPOSITORY [facility] [address] [place] [address]. 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: No Is patient in pain?: Yes Allergies acetaminophen [From Percocet] Allergy (Verified 07/20/18 13:59) Other alendronate sodium [From Fosamax] Allergy (Verified 07/20/18 13:59) Other nitrofurantoin [From Macrodantin] Allergy (Verified 07/20/18 13:59) Rash oxycodone [From Percocet] Allergy (Verified 07/20/18 13:59) Other quinapril [From Accupril] Allergy (Verified 07/20/18 13:59) Rash atorvastatin [From Lipitor] Adverse Reaction (Verified 07/20/18 13:59) Pain in joints diclofenac [From Arthrotec 50] Adverse Reaction (Verified 07/20/18 13:59) Upset Stomach misoprostol [From Arthrotec 50] Adverse Reaction (Verified 07/20/18 13:59) Upset Stomach Medications Clopidogrel Bisulfate [Plavix] 75 mg PO DAILY 12/15/16 [History Confirmed 07/20/18] Aspirin 325 mg PO DAILY@0800 07/08/17 [History Confirmed 07/20/18] Cholecalciferol (VIT D3) [Vitamin D3] 1,000 unit PO DAILY 07/08/17 [History Confirmed 07/20/18] Digoxin [Lanoxin] 125 mcg PO DAILY 07/08/17 [History Confirmed 07/20/18] Furosemide [Lasix] 20 mg PO DAILY 07/08/17 [History Confirmed 07/20/18] Levothyroxine [Synthroid] 100 mcg PO DAILY 07/08/17 [History Confirmed 07/20/18] Lorazepam [Ativan] 1 mg PO QHS PRN PRN 07/08/17 [History Confirmed 07/20/18] Losartan Potassium 100 mg PO DAILY 07/08/17 [History Confirmed 07/20/18] Nitroglycerin [Nitrostat] 0.4 mg SL PRN PRN 07/08/17 [History Confirmed 07/20/18] Spironolactone [Aldactone] 25 mg PO DAILY 07/08/17 [History Confirmed 09/07/17] Carvedilol [Coreg (Beta Sonya)] 25 mg PO BID 07/22/17 [History Confirmed 07/20/18] hydrOXYzine pamoate capsule [Vistaril pamoate capsule] 25 mg PO TID PRN PRN 07/22/17 [History Confirmed 07/20/18] Clotrimazole/Betamethasone Dip [Clotrimazole-Betamethasone Crm] 1 applic TP BID PRN PRN 08/04/17 [History Confirmed 07/20/18] Cefdinir 300 mg PO BID #5 cap 08/06/17 [Rx Confirmed 07/20/18] Is last menstrual period known: No Post menopausal: Yes Patient : No PFSH Medical History Respiratory abnormality (Acute) CAD (coronary artery disease) (Acute) History of breast cancer (Acute) Hypothyroidism (Acute) PAD (peripheral artery disease) (Acute) Pacemaker (Acute) COPD (chronic obstructive pulmonary disease) (Chronic) HTN (hypertension) (Chronic) Surgical History History of coronary artery bypass graft x 3 (Acute) S/P peripheral artery angioplasty with stent placement (Acute) Status post peripheral artery angioplasty (Acute) Family History Sister Breast cancer Hypertension Social History Smoking Status: Never smoker HPI HPI HPI: LI GRIFFITH, is a 82 F who presents to the office today for surgical consultation regarding peripheral vascular occlusive disease. The patient is referred by her primary care physician Dr. Mariaa Fuller, III and a written consult recommendations will be returned to him Patient has multiple concerns regarding her lower extremities. She complains of pain from her knees to her toes. She apparently has degenerative disease of both knees but is not felt to be a medically appropriate candidate. She complains of numbness and tingling of her toes and the ball of her feet. She claims that this is constant /. She complains of calf pain bilaterally worse on the right than on the left walking about 20-25 feet. She is able to manage getting around her home. She has more difficulties trying to walk extended periods and she has to sit down. It is of note that I have assisted the patient previously in the past. She had a small left toe ulceration involving her left foot. And so on July 23, 2017 I performed a left lower extremity arteriogram. That was partially performed with carbon dioxide and partially performed with contrast material because of her chronic renal insufficiency. She had complete occlusion of the left popliteal and tibioperoneal trunk and proximal left peroneal. She was treated with a 4 x 2 Powerflex angioplasty of the popliteal and a 2.5 x 120 mm Amna cross angioplasty of the peroneal. I have reviewed her images there was recanalization of flow however with dissections. Fortunately she was able to get the ulcer to heal subsequent to that in a short period of time. That procedure was not performed for claudication. As of July 06, 2018 at the [facility] she had PVRs. It is pertinent that the right DP and PT Doppler waveforms are both monophasic. The right DP and PT ankle-brachial indices are 0.35 and 0.47 at rest. These have diminished from June 22, 2017 when the right JULIET was 1.07 in the left JULIET was 0.41. Currently the left JULIET for the DP and PT are 0.4 and 0.45. This is unchanged in the left from her endovascular intervention. The patient is on aspirin and clopidogrel in addition to her other chronic medications. As of February 10, 2018 her BUN was 25 and creatinine 1.2 with a GFR of 43. Total cholesterol that time was 288 and triglycerides 520 On today's visit the patient is complaining of a 2-3-day history of chest tightness and respiratory concern ROS General General: Yes fatigue and breast cancer; no weight change, appetite, colon cancer or weakness HEENT HEENT: Yes difficulty swallowing and eye surgery; no eye injury, swollen glands or hoarseness Endo Endocrine: Yes thyroid disease; no diabetes mellitus, thyroid cancer, Hair loss, heat intolerance or cold intolerance Cardio Cardiovascular: Yes pacemaker, heart disease, high blood pressure and heart stent; no murmur, atrial fibrillation, heart attack, palpitations, shortness of breat with exertion or chest pain Resp Respiratory: Yes shortness of breath, No sleep apnea, No cough, Yes COPD, No asthma, No emphysema, No wheezing Gastro Gastrointestinal: No abdominal pain, Yes nausea or vomiting, No diarrhea, No constipation, No blood in stool, No acid reflux, No hemorrhoids, No ulcers, No gallbladder problem, No black,tarry stools [place] Hematologic: Yes blood thinners, No blood disorders, No bleeding, No anemia, No blood clots Neuro Neurologic: No weakness Exam Const General: cooperative, no acute distress Nutritional Appearance: underweight Orientation: alert, awake, oriented x3 Neck Neck: normal visual inspection Resp Effort AND Inspection: normal respiratory effort Other: Bilateral dry rales Cardio Rate: regular rate Rhythm: regular rhythm Heart Sounds: no murmurs Other: Bilateral radials are diminutive at 1+. Bilateral brachials 2+. Bilateral carotids 3+. No carotid bruits Bilateral femorals 3+ Bilateral popliteals and DPs and PTs 0 GI Palpation: soft, no hepatosplenomegaly Auscultation: normal bowel sounds Skin General: no rashes or lesions noted Neuro Cognition: normal cognition Extrem Other: Bilateral feet are cool particularly the toes worse on the right than the left. No ulcerations noted bilaterally. Diminished capillary refill bilaterally. [place] coloration bilaterally. Dependent rubor and elevation pallor. Diminished light touch sensation Psych Affect: normal affect Assessment AND Plan Problems 1. Peripheral arterial disease I73.9 2. Respiratory abnormality J98.9 Plan I had an extensive discussion with this 82-year-old female regarding possibilities. Her previous left lower extremity intervention 1 year ago was done in an attempt to avoid progressive infection from an ulceration. I asked her candidly whether it improved her calf claudication and she was unclear. Clearly her right lower extremity has worsened in the interim. It is of note that the left lower extremity previously demonstrated complete occlusion of the popliteal and tibioperoneal trunk and proximal peroneal with occlusion of the left anterior tibial and posterior tibial. It is likely that her right lower extremity would mirror similar pathology. She has hyperlipidemia. He has chronic renal insufficiency. After the left lower extremity angioplasty intervention there was controlled dissection of the vessels. Currently the patient has an acute respiratory problem with bibasilar rales. I deferred any thought of lower extremity vascular intervention until her pulmonary situation could be better identified. We did offer to assist with pursuing a chest x-ray for her and encouraged her also to follow-up with her primary care physician Dr. Mariaa Fuller III. I suggested to the patient and her daughter that I would review her previous images which I have performed as noted above. I do not believe that it is mandatory to attempt intervention on either lower extremity. Clearly her right lower extremity is currently more symptomatic and has deteriorated. One could pursue an attempt at a right lower extremity arteriogram. The risks and benefits and potential complications have been offered. My concern is that she will have pathology that closely mirrors the left. Absolutely no guarantees of improvement to the right lower extremity could be offered. She has had an opportunity to ask and have questions answered. We will have her pursue her current new pulmonary issues. We will notify her of my review of the arteriograms. The patient will then assist in deciding with her symptoms worth the risk of the right lower extremity intervention. She is well aware that I would not attempt pursuing bilateral lower extremities at the same setting. We would need to be cautious with her utilization of contrast because of her chronic renal insufficiency. I very much appreciate the kind opportunity of assisting with her surgical care CC: Dr. Mariaa Fuller, III Maury Fuller M.D., F.A.C.S. Orders Orders: Coding Level of Care Code Detailed, Low Diagnoses Peripheral arterial disease I73.9 Respiratory abnormality J98.9 11/1846 <Electronically signed by Maury Fuller MD> Date Maury Fuller MD Cosigner Signature: Date (if applicable) CC: Mariaa Fuller III, MD CHEST PA AND LATERAL Observed: 07/20/2018 Status: F Source: WHITING 2:27 PM [facility] REPOSITORY [facility] Imaging Services [address] [place], [place] [address] [address] Chest PA and Lateral MR#: [id number] Acct: [id number] Name: LI GRIFFITH Rep #: [id number] : 1935 F 82 From: Blue Sarmiento MD PCP: Mariaa Fuller III, MD Status: REG CLI Study: Chest PA and Lateral Date of Exam: 07/20/18 Exam# [id number] Ordering Dr: Maury Fuller MD STUDY: X-RAY CHEST REASON FOR EXAM: Female, 82 years old. Upper respiratory infection. TECHNIQUE: PA and lateral views of the chest. COMPARISON: PA and lateral chest x-ray August 05, 2017. FINDINGS: The multilead left subclavian cardiac pacemaker is unchanged. There is hyperinflation of the lungs consistent with chronic obstructive lung disease (COPD). No acute infiltrate. There is no demonstrated pleural abnormality. There is stable mild cardiac enlargement. Sternal cerclage wires and vascular clips are present from a prior sternotomy and coronary artery bypass graft procedure (CABG). Normal mediastinum and davi. Normal visualized pulmonary arteries. There is stable atherosclerotic calcification of the aortic arch. There are mild multilevel degenerative changes and exaggerated kyphosis of the visualized thoracic spine. Metal fixation device is again seen in the right humeral head. Surgical clips project in the soft tissues of the bilateral chest chow. There is no demonstrated abnormality of the visualized soft tissue structures of the upper abdomen. RAD/Chest PA and Lateral IMPRESSION: Stable x-ray examination of the chest, with findings of obstructive pulmonary disease, prior sternotomy and CABG, mild cardiac enlargement, and multilead cardiac pacemaker. Electronically Signed: Cristobal Sarmiento MD at 15:34 EST , Service support , CC: Mariaa Fuller III, MD; Maury Fuller MD Nutrition Specialist: Signed PROGRESS Observed: 07/07/2018 Status: COMPLETED Source: MAXIE 1:[address] [facility] REPOSITORY HNO ID: [id number] Author: Mariaa Fuller III Service: (none) Author Type: Physician Type: Progress Notes Filed: 07/07/2018 1:15 PM Note Text: Li, The vascular studies do demonstrate worsening of blood flow through the right lower extremity. The circulation in the left lower extremity seems to be unchanged from previous testing. I recommend evaluation by a vascular surgeon. You may return to Dr. Maury Fuller who has worked with you in the past if you desire. Mariaa Fuller III, MD, FAAFP CNOV Observed: 07/06/2018 Status: COMPLETED Source: MAXIE 10:[address] [facility] REPOSITORY Office Visit (VSLWST) LI GRIFFITH ([id number]) 1935 F NFR Date Time Provider Department 07/06/18 10:00 AM [facility] VSLWST During your visit today, we recorded the following information about you: Mariaa Fuller III MD 07/07/2018 1:15 PM Signed Li, The vascular studies do demonstrate worsening of blood flow through the right lower extremity. The circulation in the left lower extremity seems to be unchanged from previous testing. I recommend evaluation by a vascular surgeon. You may return to Dr. Maury Fuller who has worked with you in the past if you desire. Mariaa Fuller III, MD, FAAFP Referring Provider: MARIAA FULLER III [[id number]] Allergies As of Date: 07/06/2018 Noted Allergy Reaction ACCUPRIL (QUINAPRIL HCL) 04/14/2005 2 - Rash ARTHROTEC 50 (DICLOFENAC-MISOPROS*04/14/2005 8 - GI Upset FOSAMAX (ALENDRONATE SODIUM) 01/31/2007 5 - Intolerance Comments: MUSCLE WEAKNESS LIPITOR (ATORVASTATIN CALCIUM) 06/29/2012 14 - Other: See Comments Comments: Muscle achiness MACRODANTIN (NITROFURANTOIN) 04/14/2005 2 - Rash PERCOCET (OXYCODONE-ACETAMINOPHEN)04/14/2005 5 - Intolerance Comments: off balance, elevated blood pressure PJLJOAP-FGY-AMC REDUCTASE INHIBIT*08/30/2015 17 - Myalgia Date Reviewed: 05/12/2018 Reviewed by: Caterina Lara LPN - Fully Assessed Visit Diagnosis:PAD (peripheral artery disease) ([facility]) [I73.9] Order(s):PVR LEG [facility] [[id number]] Order #: [id number]. #:[id number] Prescriptions as of 07/06/2018 Sig: LORAZEPAM 0.5 MG TABLET Take 1 tablet by mouth at bed* DIGOXIN 125 MCG TABLET TAKE 1 TABLET BY MOUTH ONE TI* LEVOTHYROXINE 100 MCG TABLET TAKE 1 TABLET BY MOUTH ONE TI* CHOLECALCIFEROL (VITAMIN D3) * Take 1 capsule by mouth once * LOSARTAN 100 MG TABLET TAKE 1 TABLET BY MOUTH ONE TI* CLOPIDOGREL 75 MG TABLET TAKE 1 TABLET BY MOUTH EVERY * SPIRONOLACTONE 25 MG TABLET TAKE 1 TABLET BY MOUTH DAILY CINACALCET 30 MG TABLET Take 1 tablet by mouth twice * FUROSEMIDE 20 MG TABLET Take 1 tablet by mouth once d* MELOXICAM 15 MG TABLET Take 1 tablet by mouth once d* DEUVDZI-YOYFDZKRHXYVZ-XBOGSYJ* Take 1 tablet by mouth every * CARVEDILOL 25 MG TABLET TAKE 1 TABLET BY MOUTH TWICE * NITROGLYCERIN 0.4 MG SUBLINGU* Dissolve 1 tablet under the t* OTC PRODUCT Vitamin D 1000 mg daily. 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 Prominent vein [I87.8] INVALID FOR* Vascular headache [G44.1] INVALID FOR* Hyperparathyroidism (HCC) [E21.3] INVALID FOR* More... Claudication (HCC) [I73.9] INVALID FOR* Skin lesion of cheek [L98.9] INVALID FOR* Parathyroid adenoma [D35.1] INVALID FOR* PAD (peripheral artery disease) (HCC) [I73.9] INVALID FOR* Encounter Status:Closed by MARIAA FULLER III, MD on 07/08/18 PROGRESS Observed: 06/02/2018 Status: COMPLETED Source: MAXIE 7:[address] [facility] REPOSITORY [facility] ID: [id number] Author: Mariaa Fuller III Service: (none) Author Type: Physician Type: Progress Notes Filed: 06/02/2018 7:09 PM Note Text: Li, The PTH level is coming down a bit, but the calcium level is a little high. The vitamin D level is low normal and is lower than before. I recommend that you take uwqx-blm-yksbbew vitamin D 2000 units daily. Recheck labs in 2 months. Mariaa Fuller III, MD, FAAFP PTH, INTACT Collected: 06/01/2018 Status: F Source: MAXIE 11:[address] [facility] REPOSITORY TYPE CODE TESTS RESULT OUT OF REFERENCE UNITS RANGE LAB PTH 15-65 pg/mL High PTH, Intact 97 Performed By: #### PTHI, CMP, LIPB, VITD #### [facility] [place] [facility] [address] [place] [address] COMP METABOLIC PANEL Collected: 06/01/2018 Status: F Source: MAXIE 11:[address] [facility] REPOSITORY TYPE CODE TESTS RESULT OUT OF REFERENCE UNITS RANGE LAB TP 6.3-8.0 g/dL Protein, Total 7.0 LAB ALB 3.9-4.9 g/dL Albumin 4.2 LAB CA 8.5-10.2 mg/dL Calcium, High Total 10.7 LAB TBIL 0.2-1.3 mg/dL Bilirubin, Total 0.6 LAB ALKP 34-123 U/L Alkaline Phosphatase 90 LAB AST 13-35 U/L AST 21 LAB GLU 74-99 mg/dL Glucose 96 Result Comment: The [place] Diabetes Association (ADA) provides guidance for cutoff values for fasting glucose and random glucose. The ADA defines fasting as no caloric intake for at least 8 hours. Fas ting plasma glucose results between 100 to 125 mg/dL indicate increased risk for diabetes (prediabetes). Fasting plasma glucose results greater than or equal to 126 mg/dL meet the criteria for diagnosis of diabetes. In the absence of unequivocal hyperglycemia, results should be confirmed by repeat testing. In a patient with classic symptoms of hyperglycemia or hyperglycemic crisis, random plasma glucose results greater than or equal to 200 mg/dL meet the criteria for diagnosis of diabetes. Reference: Standards of Medical Care in Diabetes 2016, [place] Diabetes Association. Diabetes Care. 2016.39(Suppl 1). LAB BUN 7-21 mg/dL BUN High 37 LAB CRET 0.58-0.96 mg/dL Creatinine High 1.44 LAB NA 136-144 mmol/L Sodium 141 LAB K 3.7-5.1 mmol/L Potassium 5.1 LAB CL 97-105 mmol/L Chloride 103 LAB CO2 22-30 mmol/L CO2 22 LAB AGAP 9-18 mmol/L Anion Gap 16 LAB ALT 7-38 U/L ALT 12 LAB GFRAA eGFR- Amer. 42 LAB GFRNAA . eGFR-All Other Races 35 Result Comment: eGFR (Estimated GFR) Units of measure: mL/min/1.73 meters squared eGFR is derived from the reexpressed MDRD Study equation using the following parameters: serum creatinine, age, gender and race. The creatinine assay has been calibrated to be traceable to IDMS. An eGFR <60 mL/min/1.73m2 for >3 months is consistent with chronic kidney disease. Refer to KDOQI guidelines for clinical interpretation. In patients with unstable renal function, e.g. those with acute kidney injury, the eGFR may not accurately reflect actual GFR. Performed By: #### PTHI, CMP, LIPB, VITD #### [facility] [place] [facility] [address] [place], [place] [address] LIPID PANEL, BASIC Collected: 06/01/2018 Status: F Source: MAXIE 11:22 AM [facility] REPOSITORY TYPE CODE TESTS RESULT OUT OF REFERENCE UNITS RANGE LAB CHOL <200 mg/dL Cholesterol High 241 Result Comment: <200 mg/dL, Desirable 200-239 mg/dL, Borderline high >239 mg/dL, High LAB TRIGLY <150 mg/dL Triglyceride High 351 Result Comment: <150 mg/dL, Normal 150-199 mg/dL, Borderline high 200-499 mg/dL, High >499 mg/dL, Very high LAB HDL >39 mg/dL HDL-Cholesterol Low 39 Result Comment: 40-59 mg/dL, Acceptable >59 mg/dL, High: Negative risk factor for coronary heart disease <40 mg/dL, Low: Positive risk factor for coronary heart disease LAB LDL <100 mg/dL LDL-Cholesterol High 132 Result Comment: <100 mg/dL, Optimal 100-129 mg/dL, Near optimal/above optimal 130-159 mg/dL, Borderline high 160-189 mg/dL, High >189 mg/dL, Very high Secondary prevention optimal LDL Cholesterol levels are recommended to be < 70 mg/dL LAB NONHDL <130 mg/dL Non HDL High Cholesterol 202 Result Comment: <130 mg/dL, Optimal 130-159 mg/dL, Near optimal/above optimal 160-189 mg/dL, Borderline high 190-219 mg/dL, High >219 mg/dL, Very high Secondary prevention optimal non HDL Cholesterol levels are recommended to be < 100 mg/dL LAB FT hrs Fasting Time Unknown LAB VLDL <30 mg/dL VLDL 70 High Cholesterol LAB TCHDL <5.10 TC:HDL Ratio High 6.18 LAB LDLHDL <2.54 LDL:HDL Ratio High 3.38 Result Comment: Reference: 1. National Cholesterol Education Program ATP III Guideline At-A-Glance Quick Desk Reference: National Heart, Lung, and Blood [place]. National Institutes of Health. 2001: NIH Publication No. 01-3305. 2. An International Atherosclerosis Society position paper: global recommendations for the management of dyslipidemia: executive summary, Atherosclerosis. 2014: 232(2):410-413. Performed By: #### PTHI, CMP, LIPB, VITD #### [facility] [place] [email or web address] [address] [place] [id number] VITAMIN D 25 HYDROXY Collected: 06/01/2018 Status: F Source: MAXIE 11:[address] [facility] REPOSITORY TYPE CODE TESTS RESULT OUT OF REFERENCE UNITS RANGE LAB VITD 31.0-80.0 ng/mL Vitamin D 25 36.6 Hydroxy Result Comment: Classification of 25 [place] Vitamin D status: Insufficiency/Moderate Deficiency: < or = 30 ng/mL Sufficiency/Optimal Levels: 31 to 80 ng/mL Toxicity: > 100 ng/mL Test performed by chemiluminescent immunoassay. Performed By: #### PTHI, CMP, LIPB, VITD #### [facility] [place] [email or web address] [address] [place] [address] CNCO Observed: 06/01/2018 Status: COMPLETED Source: MAXIE 12:[address] [facility] REPOSITORY Letter Text [facility] [address] [place] [address] 06/01/2018 THIS IS A PRESCRIPTION FOR HANDICAPPED PARKING PERMIT Re: Li Griffith [address] [facility] [address] The above named person requires a disability parking placard for the following reasons: Cannot walk 200 ft. without stopping to rest Is severely limited in ability to walk due to arthritic condition DURATION: LIFETIME EXPIRATION: June 01, 2023 Sincerely, Mariaa Fuller III, M.D. PROGRESS Observed: 05/28/2018 Status: COMPLETED Source: MAXIE 4:[address] [facility] REPOSITORY HNO ID: [id number] Author: Mariaa Fuller III Service: (none) Author Type: Physician Type: Progress Notes Filed: 05/28/2018 4:26 PM Note Text: Li, Something unexpected has happened--your PTH level has almost doubled but your calcium level is now normal. This can occur if you are vitamin D deficient. Last April your vitamin D level was normal, but maybe it has dropped. I have placed an order for a vitamin D blood test. Fasting is not required. If the vitamin D level is low, we may be able to fix this problem with a high dose supplement. Mariaa Fuller III MD PROGRESS Observed: 05/26/2018 Status: COMPLETED Source: MAXIE 7:[address] [facility] REPOSITORY HNO ID: [id number] Author: Mariaa Fuller III Service: (none) Author Type: Physician Type: Progress Notes Filed: 05/26/2018 7:05 PM Note Text: Good news?there is no evidence of the vein thrombosis. Mariaa Fuller III, MD, FAAFP CNOV Observed: 05/26/2018 Status: COMPLETED Source: MAXIE 2:[address] [facility] REPOSITORY Office Visit (VSLWST) LI GRIFFITH ([id number]) 1935 F NFR Date Time Provider Department 05/26/18 2:30 PM [facility] VSLWST During your visit today, we recorded the following information about you: Mariaa Fuller III MD 05/26/2018 7:05 PM Signed Good news?there is no evidence of the vein thrombosis. Mariaa Fuller III, MD, FAAFP Referring Provider: MARIAA FULLER III [[id number]] Allergies As of Date: 05/26/2018 Noted Allergy Reaction ACCUPRIL (QUINAPRIL HCL) 04/14/2005 2 - Rash ARTHROTEC 50 (DICLOFENAC-MISOPROS*04/14/2005 8 - GI Upset FOSAMAX (ALENDRONATE SODIUM) 01/31/2007 5 - Intolerance Comments: MUSCLE WEAKNESS LIPITOR (ATORVASTATIN CALCIUM) 06/29/2012 14 - Other: See Comments Comments: Muscle achiness MACRODANTIN (NITROFURANTOIN) 04/14/2005 2 - Rash PERCOCET (OXYCODONE-ACETAMINOPHEN)04/14/2005 5 - Intolerance Comments: off balance, elevated blood pressure UWKOQOS-NJR-YWG REDUCTASE INHIBIT*08/30/2015 17 - Myalgia Date Reviewed: 05/12/2018 Reviewed by: Caterina Lara LPN - Fully Assessed Visit Diagnosis:Pain of right lower extremity [M79.604] Order(s): LEG VEIN DVT [facility] [[id number]] Order #: [id number]. #[id number] Prescriptions as of 05/26/2018 Sig: LOSARTAN 100 MG TABLET TAKE 1 TABLET BY MOUTH ONE TI* CLOPIDOGREL 75 MG TABLET TAKE 1 TABLET BY MOUTH EVERY * SPIRONOLACTONE 25 MG TABLET TAKE 1 TABLET BY MOUTH DAILY GABAPENTIN 100 MG CAPSULE Take 1 capsule by mouth twice* LORAZEPAM 0.5 MG TABLET Take 1 tablet by mouth at bed* CINACALCET 30 MG TABLET Take 1 tablet by mouth twice * FUROSEMIDE 20 MG TABLET Take 1 tablet by mouth once d* MELOXICAM 15 MG TABLET Take 1 tablet by mouth once d* WBOESMG-YATZOVOBVTPUS-GACBEMW* Take 1 tablet by mouth every * LEVOTHYROXINE 100 MCG TABLET TAKE 1 TABLET BY MOUTH ONE TI* DIGOX 125 MCG TABLET TAKE 1 TABLET BY MOUTH ONE TI* CARVEDILOL 25 MG TABLET TAKE 1 TABLET BY MOUTH TWICE * NITROGLYCERIN 0.4 MG SUBLINGU* Dissolve 1 tablet under the t* OTC PRODUCT Vitamin D 1000 mg daily. 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 Prominent vein [I87.8] INVALID FOR* Vascular headache [G44.1] INVALID FOR* Hyperparathyroidism (HCC) [E21.3] INVALID FOR* More... Claudication (HCC) [I73.9] INVALID FOR* Skin lesion of cheek [L98.9] INVALID FOR* Parathyroid adenoma [D35.1] INVALID FOR* PAD (peripheral artery disease) (HCC) [I73.9] INVALID FOR* Encounter Status:Closed by MARIAA FULLER III, MD on 05/30/18 COMP METABOLIC PANEL Collected: 05/12/2018 Status: F Source: MAXIE 4:53 PM [facility] REPOSITORY TYPE CODE TESTS RESULT OUT OF REFERENCE UNITS RANGE LAB TP 6.3-8.0 g/dL Protein, Total 7.2 LAB ALB 3.9-4.9 g/dL Albumin 4.1 LAB CA 8.5-10.2 mg/dL Calcium, Total 9.7 LAB TBIL 0.2-1.3 mg/dL Bilirubin, Total 0.4 LAB ALKP 32-117 U/L Alkaline Phosphatase 81 LAB AST 13-35 U/L AST 25 LAB GLU 74-99 mg/dL Glucose 91 Result Comment: The [place] Diabetes Association (ADA) provides guidance for cutoff values for fasting glucose and random glucose. The ADA defines fasting as no caloric intake for at least 8 hours. Fas ting plasma glucose results between 100 to 125 mg/dL indicate increased risk for diabetes (prediabetes). Fasting plasma glucose results greater than or equal to 126 mg/dL meet the criteria for diagnosis of diabetes. In the absence of unequivocal hyperglycemia, results should be confirmed by repeat testing. In a patient with classic symptoms of hyperglycemia or hyperglycemic crisis, random plasma glucose results greater than or equal to 200 mg/dL meet the criteria for diagnosis of diabetes. Reference: Standards of Medical Care in Diabetes 2016, [place] Diabetes Association. Diabetes Care. 2016.39(Suppl 1). LAB BUN 7-21 mg/dL BUN High 32 LAB CRET 0.58-0.96 mg/dL Creatinine High 1.34 LAB NA 136-144 mmol/L Sodium 141 LAB K 3.7-5.1 mmol/L Potassium 4.9 LAB CL 97-105 mmol/L Chloride 104 LAB CO2 22-30 mmol/L CO2 22 LAB AGAP 9-18 mmol/L Anion Gap 15 LAB ALT 7-38 U/L ALT 16 LAB GFRAA eGFR- Amer. 46 LAB GFRNAA . eGFR-All Other Races 38 Result Comment: eGFR (Estimated GFR) Units of measure: mL/min/1.73 meters squared eGFR is derived from the reexpressed MDRD Study equation using the following parameters: serum creatinine, age, gender and race. The creatinine assay has been calibrated to be traceable to IDMS. An eGFR <60 mL/min/1.73m2 for >3 months is consistent with chronic kidney disease. Refer to KDOQI guidelines for clinical interpretation. In patients with unstable renal function, e.g. those with acute kidney injury, the eGFR may not accurately reflect actual GFR. Performed By: #### CMP, PTHI #### [facility] [place] [email or web address] [address] [place], [place] [address] PTH, INTACT Collected: 05/12/2018 Status: F Source: MAXIE 4:[address] [facility] REPOSITORY TYPE CODE TESTS RESULT OUT OF REFERENCE UNITS RANGE LAB PTH 15-65 pg/mL High PTH, Intact 139 Performed By: #### CMP, PTHI #### [facility] [place] [email or web address] [address] [place], [place] [address] PROGRESS Observed: 05/12/2018 Status: COMPLETED Source: MAXIE 4:[address] [facility] REPOSITORY HNO ID: [id number] Author: Mariaa Fuller III Service: (none) Author Type: Physician Type: Progress Notes Filed: 05/12/2018 6:19 PM Note Text: SUBJECTIVE: This is a 82 year old female that is here today for 1. hypercalcemia with hyperparathyroidism. Started Sensipar 05/01 and took her last dose 05/11 maxime. She awakened with severe pain in both lower ext, denny R toes and bottoms of both feet, on 05/08. Took excedrin with benefit. She has awakened with pain in both lower ext every AM this past wk. Hx of PAD with claudication. Her present sx are different because it occurs at rest. She is convinced that since apart is the cause of her symptoms. 2. Parathyroid adenoma with hypercalcemia and hyperparathyroidism --Intra-Op patient's questions regarding the recent confusion regarding treatment with medication versus surgery. I reviewed every telephone note in detail and answered all questions. PAST MEDICAL HISTORY Diagnosis Date - Actinic keratosis 08/13/2011 - Cardiomyopathy ([facility]) 03/29/2014 - CHF (congestive heart failure) ([facility]) 08/11/2010 - Chronic kidney disease (CKD), stage III (moderate) ([facility]) 11/18/2016 - Claudication ([facility]) 06/16/2017 - Diverticulosis of colon (without mention of hemorrhage) Diverticulosis - Essential hypertension, benign - External hemorrhoids without mention of complication - Hypercalcemia 02/19/2017 - Internal hemorrhoids without mention of complication - Lumbar degenerative disc disease 06/30/2013 - Malignant neoplasm of breast (female), unspecified site Breast cancer - Other osteoporosis - Pure hypercholesterolemia - 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 cinacalcet (SENSIPAR) 30 mg tablet Take 1 tablet by mouth twice daily. furosemide (LASIX) 20 mg tablet Take 1 tablet by mouth once daily. meloxicam (MOBIC) 15 mg tablet Take 1 tablet by mouth once daily. With food. Mpdnshx-Chglynppiyohb-Ebrnlqru (EXCEDRIN) 250-250-65 mg per tablet Take 1 tablet by mouth every 6 hours as needed for Pain. levothyroxine (SYNTHROID) 100 mcg tablet TAKE 1 TABLET BY MOUTH ONE TIME DAILY ON AN EMPTY STOMACH DIGOX 125 mcg tablet TAKE 1 TABLET BY MOUTH ONE TIME DAILY clopidogrel (PLAVIX) 75 mg tablet TAKE 1 TABLET BY MOUTH EVERY DAY spironolactone (ALDACTONE) 25 mg tablet Take 1 tablet by mouth once daily. losartan (COZAAR) 100 mg tablet TAKE 1 TABLET BY MOUTH ONE TIME DAILY carvedilol (COREG) 25 mg tablet TAKE 1 TABLET BY MOUTH TWICE DAILY nitroglycerin sublingual (NITROSTAT) 0.4 mg SL tablet Dissolve 1 tablet under the tongue as needed. DISSOLVE ON TONGUE FOR CHEST PAIN. IF NO PAIN RELIEF, CALL 911 OTC PRODUCT Vitamin D 1000 mg daily. No current facility-administered medications on file prior to visit. FAMILY HISTORY Problem Relation Age of Onset - Cancer Mother ovarian - Heart Father - Breast Cancer Sister metastatic to bone Social History Substance Use Topics - Smoking status: Never Smoker - Smokeless tobacco: Never Used - Alcohol use No BP 138/82 (BP Site: Right Arm, BP Position: Sitting, BP Cuff Size: Regular Adult) Pulse 62 Temp 36.9 ?C (98.5 ?F) (Left Tympanic) Resp 18 Wt 54.6 kg (120 lb 4.8 oz) BMI 23.49 kg/m? . OBJECTIVE: APPEARANCE Well appearing, alert, in no acute distress, well-hydrated, well nourished. Neck no abnormal neck mass thyroid normal EXTREMITIES mild swelling of both knees but no erythema, warmth, joint line tenderness. Mild ankle edema bilaterally. No calf tenderness. Dorsal pedal pulses are absent to faint bilaterally. Lab Results for LI GRIFFITH ( ) as of 05/12/2018 16:23 Ref. Range 02/10/2018 12:32 02/10/2018 12:32 Sodium Latest Ref Range: 136 - 144 mmol/L 141 Potassium Latest Ref Range: 3.7 - 5.1 mmol/L 5.2 (H) Chloride Latest Ref Range: 97 - 105 mmol/L 104 CO2 Latest Ref Range: 22 - 30 mmol/L 25 BUN Latest Ref Range: 7 - 21 mg/dL 25 (H) Creatinine Latest Ref Range: 0.58 - 0.96 mg/dL 1.20 (H) Glucose Latest Ref Range: 74 - 99 mg/dL 96 Calcium Latest Ref Range: 8.5 - 10.2 mg/dL 11.1 (H) Anion Gap Latest Ref Range: 9 - 18 mmol/L 12 eGFR- Unknown 52 eGFR-All Other Races Latest Units: . 43 Cholesterol, Total Latest Ref Range: <200 mg/dL 288 (H) Triglyceride Latest Ref Range: <150 mg/dL 520 (H) Fasting Time Latest Units: hrs 14 HDL Cholesterol Latest Ref Range: >39 mg/dL 44 LDL Cholesterol Latest Ref Range: <100 mg/dL Unable to calcula... VLDL Cholesterol Latest Ref Range: <30 mg/dL Unable to calcula... 60 (H) TC:HDL Ratio Latest Ref Range: <5.10 6.55 (H) LDL:HDL Ratio Latest Ref Range: <2.54 Unable to calcula... LDL Cholesterol, Direct Latest Ref Range: <100 mg/dL 184 (H) Non HDL Cholesterol Latest Ref Range: <130 mg/dL 244 (H) PTH, Intact Latest Ref Range: 15 - 65 pg/mL 71 (H) ASSESSMENT: hyperparathyroidism with hypercalcemia myalgia and arthralgia--uncertain etiology. Consider possibility of hypocalcemia from sensipar PAD with claudication PLAN: calcium level, PTH hold sensipar. stay well hydrated same other medications 30 minute visit?much reassurance. All questions answered Mariaa Fuller III MD CNOV Observed: 05/12/2018 Status: COMPLETED Source: [place] 4:[address] [facility] REPOSITORY [facility] LI GRIFFITH ([id number]) 1935 F NFR Date Time Provider Department 05/12/18 4:00 PM MARIAA FULLER III During your visit today, we recorded the following information about you: Temperature Pulse Respiration Blood pressure 98.5 degrees 62/minute 18/minute 138/82 Weight 54.6 kg Mariaa Fuller III MD 05/12/2018 6:19 PM Signed SUBJECTIVE: This is a 82 year old female that is here today for 1. hypercalcemia with hyperparathyroidism. Started Sensipar 05/01 and took her last dose 05/11 maxime. She awakened with severe pain in both lower ext, denny R toes and bottoms of both feet, on 05/08. Took excedrin with benefit. She has awakened with pain in both lower ext every AM this past wk. Hx of PAD with claudication. Her present sx are different because it occurs at rest. She is convinced that since apart is the cause of her symptoms. 2. Parathyroid adenoma with hypercalcemia and hyperparathyroidism --Intra-Op patient's questions regarding the recent confusion regarding treatment with medication versus surgery. I reviewed every telephone note in detail and answered all questions. PAST MEDICAL HISTORY Diagnosis Date - Actinic keratosis 08/13/2011 - Cardiomyopathy ([facility]) 03/29/2014 - CHF (congestive heart failure) ([facility]) 08/11/2010 - Chronic kidney disease (CKD), stage III (moderate) ([facility]) 11/18/2016 - Claudication ([facility]) 06/16/2017 - Diverticulosis of colon (without mention of hemorrhage) Diverticulosis - Essential hypertension, benign - External hemorrhoids without mention of complication - Hypercalcemia 02/19/2017 - Internal hemorrhoids without mention of complication - Lumbar degenerative disc disease 06/30/2013 - Malignant neoplasm of breast (female), unspecified site Breast cancer - Other osteoporosis - Pure hypercholesterolemia - 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 cinacalcet (SENSIPAR) 30 mg tablet Take 1 tablet by mouth twice daily. furosemide (LASIX) 20 mg tablet Take 1 tablet by mouth once daily. meloxicam (MOBIC) 15 mg tablet Take 1 tablet by mouth once daily. With food. Adbffwd-Ylygidrivcetc-Trovkrpx (EXCEDRIN) 250-250-65 mg per tablet Take 1 tablet by mouth every 6 hours as needed for Pain. levothyroxine (SYNTHROID) 100 mcg tablet TAKE 1 TABLET BY MOUTH ONE TIME DAILY ON AN EMPTY STOMACH DIGOX 125 mcg tablet TAKE 1 TABLET BY MOUTH ONE TIME DAILY clopidogrel (PLAVIX) 75 mg tablet TAKE 1 TABLET BY MOUTH EVERY DAY spironolactone (ALDACTONE) 25 mg tablet Take 1 tablet by mouth once daily. losartan (COZAAR) 100 mg tablet TAKE 1 TABLET BY MOUTH ONE TIME DAILY carvedilol (COREG) 25 mg tablet TAKE 1 TABLET BY MOUTH TWICE DAILY nitroglycerin sublingual (NITROSTAT) 0.4 mg SL tablet Dissolve 1 tablet under the tongue as needed. DISSOLVE ON TONGUE FOR CHEST PAIN. IF NO PAIN RELIEF, CALL 911 OTC PRODUCT Vitamin D 1000 mg daily. No current facility-administered medications on file prior to visit. FAMILY HISTORY Problem Relation Age of Onset - Cancer Mother ovarian - Heart Father - Breast Cancer Sister metastatic to bone Social History Substance Use Topics - Smoking status: Never Smoker - Smokeless tobacco: Never Used - Alcohol use No BP 138/82 (BP Site: Right Arm, BP Position: Sitting, BP Cuff Size: Regular Adult) Pulse 62 Temp 36.9 ?C (98.5 ?F) (Left Tympanic) Resp 18 Wt 54.6 kg (120 lb 4.8 oz) BMI 23.49 kg/m? . OBJECTIVE: APPEARANCE Well appearing, alert, in no acute distress, well- hydrated, well nourished. Neck no abnormal neck mass thyroid normal EXTREMITIES mild swelling of both knees but no erythema, warmth, joint line tenderness. Mild ankle edema bilaterally. No calf tenderness. Dorsal pedal pulses are absent to faint bilaterally. Lab Results for LI GRIFFITH ( ) as of 05/12/2018 16:23 Ref. Range 02/10/2018 12:32 02/10/2018 12:32 Sodium Latest Ref Range: 136 - 144 mmol/L 141 Potassium Latest Ref Range: 3.7 - 5.1 mmol/L 5.2 (H) Chloride Latest Ref Range: 97 - 105 mmol/L 104 CO2 Latest Ref Range: 22 - 30 mmol/L 25 BUN Latest Ref Range: 7 - 21 mg/dL 25 (H) Creatinine Latest Ref Range: 0.58 - 0.96 mg/dL 1.20 (H) Glucose Latest Ref Range: 74 - 99 mg/dL 96 Calcium Latest Ref Range: 8.5 - 10.2 mg/dL 11.1 (H) Anion Gap Latest Ref Range: 9 - 18 mmol/L 12 eGFR- Unknown 52 eGFR-All Other Races Latest Units: . 43 Cholesterol, Total Latest Ref Range: <200 mg/dL 288 (H) Triglyceride Latest Ref Range: <150 mg/dL 520 (H) Fasting Time Latest Units: hrs 14 HDL Cholesterol Latest Ref Range: >39 mg/dL 44 LDL Cholesterol Latest Ref Range: <100 mg/dL Unable to calcula... VLDL Cholesterol Latest Ref Range: <30 mg/dL Unable to calcula... 60 (H) TC:HDL Ratio Latest Ref Range: <5.10 6.55 (H) LDL:HDL Ratio Latest Ref Range: <2.54 Unable to calcula... LDL Cholesterol, Direct Latest Ref Range: <100 mg/dL 184 (H) Non HDL Cholesterol Latest Ref Range: <130 mg/dL 244 (H) PTH, Intact Latest Ref Range: 15 - 65 pg/mL 71 (H) ASSESSMENT: hyperparathyroidism with hypercalcemia myalgia and arthralgia--uncertain etiology. Consider possibility of hypocalcemia from sensipar PAD with claudication PLAN: calcium level, PTH hold sensipar. stay well hydrated same other medications 30 minute visit?much reassurance. All questions answered LIA Castelan MD, III MD 05/12/2018 4:47 PM Signed PLAN: calcium level, PTH hold sensipar. stay well hydrated same other medications Mariaa Fuller III MD Referring Provider: SELF [200] Allergies As of Date: 05/12/2018 Noted Allergy Reaction ACCUPRIL (QUINAPRIL HCL) 04/14/2005 2 - Rash ARTHROTEC 50 (DICLOFENAC-MISOPROS*04/14/2005 8 - GI Upset FOSAMAX (ALENDRONATE SODIUM) 01/31/2007 5 - Intolerance Comments: MUSCLE WEAKNESS LIPITOR (ATORVASTATIN CALCIUM) 06/29/2012 14 - Other: See Comments Comments: Muscle achiness MACRODANTIN (NITROFURANTOIN) 04/14/2005 2 - Rash PERCOCET (OXYCODONE-ACETAMINOPHEN)04/14/2005 5 - Intolerance Comments: off balance, elevated blood pressure VSSMEVE-FPC-DRD REDUCTASE INHIBIT*08/30/2015 17 - Myalgia Date Reviewed: 05/12/2018 Reviewed by: Caterina Lara LPN - Fully Assessed Reason for Visit: Recheck [92] Cmt: Medication review Primary Visit Diagnosis:Parathyroid adenoma [D35.1] Other Visit Diagnoses:Hyperparathyroidism (HCC) [E21.3] Hypercalcemia [E83.52] Claudication (HCC) [I73.9] PAD (peripheral artery disease) (HCC) [I73.9] Order(s):COMP METABOLIC PANEL [SQCMP] Order #: [id number] FUTURE PTH INTACT BLD [SQPTHI] Order #: [id number] FUTURE Prescriptions as of 05/12/2018 Sig: LORAZEPAM 0.5 MG TABLET Take 1 tablet by mouth at bed* CINACALCET 30 MG TABLET Take 1 tablet by mouth twice * FUROSEMIDE 20 MG TABLET Take 1 tablet by mouth once d* MELOXICAM 15 MG TABLET Take 1 tablet by mouth once d* JOZVCKQ-THINOLWGGQYYD-ZHMHBNF* Take 1 tablet by mouth every * LEVOTHYROXINE 100 MCG TABLET TAKE 1 TABLET BY MOUTH ONE TI* DIGOX 125 MCG TABLET TAKE 1 TABLET BY MOUTH ONE TI* CLOPIDOGREL 75 MG TABLET TAKE 1 TABLET BY MOUTH EVERY * SPIRONOLACTONE 25 MG TABLET Take 1 tablet by mouth once d* LOSARTAN 100 MG TABLET TAKE 1 TABLET BY MOUTH ONE TI* CARVEDILOL 25 MG TABLET TAKE 1 TABLET BY MOUTH TWICE * NITROGLYCERIN 0.4 MG SUBLINGU* Dissolve 1 tablet under the t* OTC PRODUCT Vitamin D 1000 mg daily. 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 Prominent vein [I87.8] INVALID FOR* Vascular headache [G44.1] INVALID FOR* Hyperparathyroidism (HCC) [E21.3] INVALID FOR* More... Claudication (HCC) [I73.9] INVALID FOR* Skin lesion of cheek [L98.9] INVALID FOR* Parathyroid adenoma [D35.1] INVALID FOR* PAD (peripheral artery disease) (HCC) [I73.9] INVALID FOR* Other instructions from your clinician: PLAN: calcium level, PTH hold sensipar. stay well hydrated same other medications Mariaa Fuller III MD Encounter Status:Closed by MARIAA FULLER III, MD on 05/12/18 CNPN Observed: 04/11/2018 Status: COMPLETED Source: [place] 12:[address] [facility] REPOSITORY Telephone ([facility] LI GRIFFITH ([id number]) 1935 F NFR Date Time Provider Department 04/11/18 [facility] During your visit today, we recorded the following information about you: Ino Cat RN 04/11/2018 5:[address] Jose D Fuller office phoned to report, doctor received and reviewed the parathyroid scan, and will not handle due to the location of the parathyroid adenoma- unable to do surgery there. He is recommending [facility] endocrinology. Mariaa Fuller III MD 04/11/2018 8:31 PM Signed Staff please schedule--order for endocrinology entered LIA Castelan MD Psr 04/12/2018 8:16 AM Signed First attempt. No voicemail set up Vanessa Aguero Psr 04/14/2018 12:52 PM Signed Appt is scheduled for Endo Carmen Aviles LPN 04/18/2018 2:11 PM Signed Noted. Thank you. Carmen Torres Ma 04/19/2018 9:49 AM Signed Patient's daughter Krystin stopped into office today stating that she was on her way to take her mother up to [place] , about 20 minutes away from the [employer] office when she received a call from Dr. Raymond's office stating that they did not know why they were coming in and cancelled her appointment. Advised patient that according to the notes in [facility], states patient was to see them due to overactive parathyroid and surgery was unable to be completed in [place] due to the location of tumor, therefore referred to [facility]. Patient's daughter Krystin states that mother will opt out of surgery and does not believe it is necessary due to her age and heart hx. Krystin wondering what next step will be. Please review and advise. Call Tamir Mcclelland at [phone] Allergies As of Date: 04/11/2018 Noted Allergy Reaction ACCUPRIL (QUINAPRIL HCL) 04/14/2005 2 - Rash ARTHROTEC 50 (DICLOFENAC-MISOPROS*04/14/2005 8 - GI Upset FOSAMAX (ALENDRONATE SODIUM) 01/31/2007 5 - Intolerance Comments: MUSCLE WEAKNESS LIPITOR (ATORVASTATIN CALCIUM) 06/29/2012 14 - Other: See Comments Comments: Muscle achiness MACRODANTIN (NITROFURANTOIN) 04/14/2005 2 - Rash PERCOCET (OXYCODONE-ACETAMINOPHEN)04/14/2005 5 - Intolerance Comments: off balance, elevated blood pressure EZBZORW-EHO-SVG REDUCTASE INHIBIT*08/30/2015 17 - Myalgia Date Reviewed: 03/11/2018 Reviewed by: Francine De Ma - Fully Assessed Reason for Visit: Parathyroid referral [Other] Primary Visit Diagnosis:Parathyroid adenoma [D35.1] Order(s):CONSULT TO ENDOCRINOLOGY [9007] Order #: [id number]: 1 Prescriptions as of 04/11/2018 Sig: LORAZEPAM 0.5 MG TABLET Take 1 tablet by mouth at bed* FUROSEMIDE 20 MG TABLET Take 1 tablet by mouth once d* MELOXICAM 15 MG TABLET Take 1 tablet by mouth once d* ABJHVKV-XIUKGIJUAONCZ-IPXBYJO* Take 1 tablet by mouth every * LEVOTHYROXINE 100 MCG TABLET TAKE 1 TABLET BY MOUTH ONE TI* DIGOX 125 MCG TABLET TAKE 1 TABLET BY MOUTH ONE TI* CLOPIDOGREL 75 MG TABLET TAKE 1 TABLET BY MOUTH EVERY * SPIRONOLACTONE 25 MG TABLET Take 1 tablet by mouth once d* LOSARTAN 100 MG TABLET TAKE 1 TABLET BY MOUTH ONE TI* CARVEDILOL 25 MG TABLET TAKE 1 TABLET BY MOUTH TWICE * NITROGLYCERIN 0.4 MG SUBLINGU* Dissolve 1 tablet under the t* OTC PRODUCT Vitamin D 1000 mg daily. 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] INVALID FOR* Postsurgical Aortocoronary Bypass Status [Z95.1]INVALID FOR* CHF (congestive heart failure) [I50.9] INVALID FOR* Lumbar degenerative disc disease [M51.36] INVALID FOR* Cardiomyopathy (HCC) [I42.9] INVALID FOR* History of breast cancer in female [Z85.3] INVALID FOR* Hyperlipidemia LDL goal <100 [E78.5] INVALID FOR* Statin intolerance [Z78.9] INVALID FOR* History of coronary artery stent placement [Z95*INVALID FOR* Chronic kidney disease (CKD), stage III (modera*INVALID FOR* Chronic anticoagulation [Z79.01] INVALID FOR* Hypercalcemia [E83.52] INVALID FOR* Prominent vein [I87.8] INVALID FOR* Vascular headache [G44.1] INVALID FOR* Hyperparathyroidism (HCC) [E21.3] INVALID FOR* Claudication (HCC) [I73.9] INVALID FOR* Skin lesion of cheek [L98.9] INVALID FOR* Parathyroid adenoma [D35.1] INVALID FOR* Encounter Status:Closed by CARMEN AVILES LPN on 04/18/18 PROGRESS Observed: 04/08/2018 Status: COMPLETED Source: [place] 8:[address] [facility] REPOSITORY HNO ID: [id number] Author: Mariaa Fuller III Service: (none) Author Type: Physician Type: Progress Notes Filed: 04/08/2018 8:09 AM Note Text: The parathyroid scan shows a benign tumor that is over producing parathyroid hormone. This can lead to excessive loss of calcium from your bones and to an increased risk for bone fracture. I recommend referral to Dr Vicky Fuller or Dr Jones for possible surgical removal of the tumor. LIA Castelan MD PARATHYROID Observed: 04/05/2018 Status: F Source: [place] [id number] 7:00 AM [facility] REPOSITORY [address] [address] Name: LI GRIFFITH Phys: MARIAA FULLER M.D. : [birth year] Age: 82 Sex: F Acct: [id number] Loc: [facility] NM Exam Date: 04/05/18 Status: REG CLI Radiology No.: [id number] Unit Number: [id number] Exam # Type/Exam [id number] NM / NM PARATHYROID [id number] PROCEDURE: Nuclear medicine parathyroid scan. HISTORY: Hyperparathyroidism COMPARISON: None. Technique: Following intravenous administration of 24 mCi of technetium 99m tagged sestamibi imaging of the neck in multiple projections was performed at 55 minute intervals for 25 minutes, thereafter 30 minute and two-hour delayed images were obtained. FINDINGS: There is intense oval-shaped focus of increased uptake in the left neck just to the left of the midline at the thoracic inlet, this persists on all phases of imaging. No other abnormal uptake. IMPRESSION: Persistent area of increased uptake just to left of midline near the thoracic inlet consistent with a parathyroid adenoma. Professional interpretation provided by [facility], [place] on [id number]. Thank you for this referral. <<Signature on File>> Reported By: BRIANA NIÑO M.D. Signed In NovaPro By: BRIANA NIÑO M.D. << Signature on File>> Reported By: BRIANA NIÑO M.D. Signed By: BRIANA NIÑO M.D. Tests performed at: [address] [address] PROGRESS Observed: 03/11/2018 Status: COMPLETED Source: [place] 10:[address] [facility] REPOSITORY HNO ID: [id number] Author: Farzad Sanders Service: (none) Author Type: Physician Type: Progress Notes Filed: 03/11/2018 10:34 AM Note Text: Patient presents with: Rash: rash all over, itchy HPI: Rash: Location:Duration: had a bite on the left knee and right leg about 1 week ago. The rash has been progressing on the legs since. Reports she had trouble with black heads on the right side of face and had trouble scratching them. She saw dermatology and sounds like she had cryo on the right jaw (AK or SK?). The area is improving. Pruritis: Yes, scratching a lot. Wakes herself scratching her legs. Pain: No Change: Spreading down the legs, were puffier yesterday Bleeding/ulceration/blister/pustule: 2 bumps like mosquito bites. Red spots. 1 or 2 have drained some water after opened. Contacts with rash: No Exposure: No new soaps, detergents, fabric softeners, lotions, outdoor exposure. No change in medications. No recent illness. Treatment: Alcohol, diphenhydramine MEDICATIONS: LORazepam (ATIVAN) 0.5 mg tab Take 1 tablet by mouth at bedtime as needed for up to 30 days. meloxicam (MOBIC) 15 mg tablet Take 1 tablet by mouth once daily. With food. Qnorsvi-Xfndukjsenpxu-Nysscuve (EXCEDRIN) 250-250-65 mg per tablet Take 1 tablet by mouth every 6 hours as needed for Pain. levothyroxine (SYNTHROID) 100 mcg tablet TAKE 1 TABLET BY MOUTH ONE TIME DAILY ON AN EMPTY STOMACH DIGOX 125 mcg tablet TAKE 1 TABLET BY MOUTH ONE TIME DAILY clopidogrel (PLAVIX) 75 mg tablet TAKE 1 TABLET BY MOUTH EVERY DAY spironolactone (ALDACTONE) 25 mg tablet Take 1 tablet by mouth once daily. losartan (COZAAR) 100 mg tablet TAKE 1 TABLET BY MOUTH ONE TIME DAILY carvedilol (COREG) 25 mg tablet TAKE 1 TABLET BY MOUTH TWICE DAILY furosemide (LASIX) 20 mg tablet TAKE 1 TABLET BY MOUTH ONE TIME DAILY nitroglycerin sublingual (NITROSTAT) 0.4 mg SL tablet Dissolve 1 tablet under the tongue as needed. DISSOLVE ON TONGUE FOR CHEST PAIN. IF NO PAIN RELIEF, CALL 911 OTC PRODUCT Vitamin D 1000 mg daily. ALLERGIES: ALLERGIES Allergen Reactions - Accupril [Quinapril* Rash - Arthrotec 50 [Diclo* GI Upset - Fosamax [Alendronat* Intolerance MUSCLE WEAKNESS - Lipitor [Atorvastat* Other: See Comments Muscle achiness - Macrodantin [Nitrof* Rash - Percocet [Oxycodone* Intolerance off balance, elevated blood pressure - U[place]isbo-Bbu-Yye Red* Myalgia VITALS: BP 140/74 Pulse 72 Temp 36.9 ?C (98.5 ?F) (Tympanic) Wt 56.2 kg (124 lb) BMI 24.22 kg/m? PHYSICAL EXAM: GEN: pleasant, no acute distress, alert SKIN: Healing ulcerations right jaw line with red hyperpigmentation. It is difficult to discern the initial papules from rash which covers the medial and anterior leg, fades onto the lateral and posterior lower leg. Rash begins above the knee and extends to the ankles. Red superficial excoriation of the tops of background seborrheic keratoses and other raised skin. No pustules, vesicles, or significant induration. ASSESSMENT/PLAN: 1. Pruritic condition - ICD9: 698.9, ICD10: L29.9 Current rash appears to be limited to excoriation damage. - TRIAMCINOLONE ACETONIDE 0.1 % TOPICAL CREAM Farzad Sanders MD CNOV Observed: 03/11/2018 Status: COMPLETED Source: [place] 10:[address] [facility] REPOSITORY Office Visit ([facility]) LI GRIFFITH ([id number]) 1935 F NFR Date Time Provider Department 03/11/18 10:00 AM FARZAD SANDESR [email or web address] During your visit today, we recorded the following information about you: Temperature Pulse Blood pressure Weight 98.5 degrees 72/minute 140/74 56.2 kg Farzad Sanders MD 03/11/2018 10:34 AM Signed Patient presents with: Rash: rash all over, itchy HPI: Rash: Location:Duration: had a bite on the left knee and right leg about 1 week ago. The rash has been progressing on the legs since. Reports she had trouble with black heads on the right side of face and had trouble scratching them. She saw dermatology and sounds like she had cryo on the right jaw (AK or SK?). The area is improving. Pruritis: Yes, scratching a lot. Wakes herself scratching her legs. Pain: No Change: Spreading down the legs, were puffier yesterday Bleeding/ulceration/blister/pustule: 2 bumps like mosquito bites. Red spots. 1 or 2 have drained some water after opened. Contacts with rash: No Exposure: No new soaps, detergents, fabric softeners, lotions, outdoor exposure. No change in medications. No recent illness. Treatment: Alcohol, diphenhydramine MEDICATIONS: LORazepam (ATIVAN) 0.5 mg tab Take 1 tablet by mouth at bedtime as needed for up to 30 days. meloxicam (MOBIC) 15 mg tablet Take 1 tablet by mouth once daily. With food. Plesxjz-Cgekkdxgbzuzt-Abpcuzrb (EXCEDRIN) 250-250-65 mg per tablet Take 1 tablet by mouth every 6 hours as needed for Pain. levothyroxine (SYNTHROID) 100 mcg tablet TAKE 1 TABLET BY MOUTH ONE TIME DAILY ON AN EMPTY STOMACH DIGOX 125 mcg tablet TAKE 1 TABLET BY MOUTH ONE TIME DAILY clopidogrel (PLAVIX) 75 mg tablet TAKE 1 TABLET BY MOUTH EVERY DAY spironolactone (ALDACTONE) 25 mg tablet Take 1 tablet by mouth once daily. losartan (COZAAR) 100 mg tablet TAKE 1 TABLET BY MOUTH ONE TIME DAILY carvedilol (COREG) 25 mg tablet TAKE 1 TABLET BY MOUTH TWICE DAILY furosemide (LASIX) 20 mg tablet TAKE 1 TABLET BY MOUTH ONE TIME DAILY nitroglycerin sublingual (NITROSTAT) 0.4 mg SL tablet Dissolve 1 tablet under the tongue as needed. DISSOLVE ON TONGUE FOR CHEST PAIN. IF NO PAIN RELIEF, CALL 911 OTC PRODUCT Vitamin D 1000 mg daily. ALLERGIES: ALLERGIES Allergen Reactions - Accupril [Quinapril* Rash - Arthrotec 50 [Diclo* GI Upset - Fosamax [Alendronat* Intolerance MUSCLE WEAKNESS - Lipitor [Atorvastat* Other: See Comments Muscle achiness - Macrodantin [Nitrof* Rash - Percocet [Oxycodone* Intolerance off balance, elevated blood pressure - Spezpip-Ogr-Xgb Red* Myalgia VITALS: BP 140/74 Pulse 72 Temp 36.9 ?C (98.5 ?F) (Tympanic) Wt 56.2 kg (124 lb) BMI 24.22 kg/m? PHYSICAL EXAM: GEN: pleasant, no acute distress, alert SKIN: Healing ulcerations right jaw line with red hyperpigmentation. It is difficult to discern the initial papules from rash which covers the medial and anterior leg, fades onto the lateral and posterior lower leg. Rash begins above the knee and extends to the ankles. Red superficial excoriation of the tops of background seborrheic keratoses and other raised skin. No pustules, vesicles, or significant induration. ASSESSMENT/PLAN: 1. Pruritic condition - ICD9: 698.9, ICD10: L29.9 Current rash appears to be limited to excoriation damage. - TRIAMCINOLONE ACETONIDE 0.1 % TOPICAL CREAM Farzad Sanders MD Referring Provider: SELF [200] Allergies As of Date: 03/11/2018 Noted Allergy Reaction ACCUPRIL (QUINAPRIL HCL) 04/14/2005 2 - Rash ARTHROTEC 50 (DICLOFENAC-MISOPROS*04/14/2005 8 - GI Upset FOSAMAX (ALENDRONATE SODIUM) 01/31/2007 5 - Intolerance Comments: MUSCLE WEAKNESS LIPITOR (ATORVASTATIN CALCIUM) 06/29/2012 14 - Other: See Comments Comments: Muscle achiness MACRODANTIN (NITROFURANTOIN) 04/14/2005 2 - Rash PERCOCET (OXYCODONE-ACETAMINOPHEN)04/14/2005 5 - Intolerance Comments: off balance, elevated blood pressure SUNNXXT-PTT-EIV REDUCTASE INHIBIT*08/30/2015 17 - Myalgia Date Reviewed: 03/11/2018 Reviewed by: Francine De Ma - Fully Assessed Reason for Visit: Rash [1087] Cmt: rash all over, itchy Primary Visit Diagnosis:Pruritic condition [L29.9] Order(s):triamcinolone acetonide (KENALOG) 0.1 % creamApply 1 application to affected area three times daily for 14 days. Apply sparingly to area for rash/itching on legs.Disp: 15 gRfl: 0 Prescriptions as of 03/11/2018 Sig: LORAZEPAM 0.5 MG TABLET Take 1 tablet by mouth at bed* MELOXICAM 15 MG TABLET Take 1 tablet by mouth once d* APAFPLZ-FJWSMLUUCJOPO-YQNIXWH* Take 1 tablet by mouth every * LEVOTHYROXINE 100 MCG TABLET TAKE 1 TABLET BY MOUTH ONE TI* DIGOX 125 MCG TABLET TAKE 1 TABLET BY MOUTH ONE TI* CLOPIDOGREL 75 MG TABLET TAKE 1 TABLET BY MOUTH EVERY * SPIRONOLACTONE 25 MG TABLET Take 1 tablet by mouth once d* LOSARTAN 100 MG TABLET TAKE 1 TABLET BY MOUTH ONE TI* CARVEDILOL 25 MG TABLET TAKE 1 TABLET BY MOUTH TWICE * FUROSEMIDE 20 MG TABLET TAKE 1 TABLET BY MOUTH ONE TI* NITROGLYCERIN 0.4 MG SUBLINGU* Dissolve 1 tablet under the t* OTC PRODUCT Vitamin D 1000 mg daily. 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] INVALID FOR* Postsurgical Aortocoronary Bypass Status [Z95.1]INVALID FOR* CHF (congestive heart failure) [I50.9] INVALID FOR* Lumbar degenerative disc disease [M51.36] INVALID FOR* Cardiomyopathy (HCC) [I42.9] INVALID FOR* History of breast cancer in female [Z85.3] INVALID FOR* Hyperlipidemia LDL goal <100 [E78.5] INVALID FOR* Statin intolerance [Z78.9] INVALID FOR* History of coronary artery stent placement [Z95*INVALID FOR* Chronic kidney disease (CKD), stage III (modera*INVALID FOR* Chronic anticoagulation [Z79.01] INVALID FOR* Hypercalcemia [E83.52] INVALID FOR* Prominent vein [I87.8] INVALID FOR* Vascular headache [G44.1] INVALID FOR* Hyperparathyroidism (HCC) [E21.3] INVALID FOR* Claudication (HCC) [I73.9] INVALID FOR* Skin lesion of cheek [L98.9] INVALID FOR* Prescriptions ordered this encounter Disp Refills Start End TRIAMCINOLONE ACETONIDE 0.1 % TOPICA* 15 g 0 03/11/2018 03/25/2018 Route: TOPICAL Sig: Apply 1 application to affected area three times daily for 14 days. Apply sparingly to area for rash/itching on legs. Encounter Status:Closed by FARZAD SANDERS MD on 03/11/18 PROGRESS Observed: 02/16/2018 Status: COMPLETED Source: MAXIE 6:[address] [facility] REPOSITORY HNO ID: [id number] Author: Mariaa Fuller III Service: (none) Author Type: Physician Type: Progress Notes Filed: 02/16/2018 6:31 PM Note Text: I recommend a healthy diet and will recheck cholesterol labs in 3 months. Mariaa Fuller III, MD, [facility] PROGRESS Observed: 02/16/2018 Status: COMPLETED Source: MAXIE 6:[address] [facility] REPOSITORY HNO ID: [id number] Author: Mariaa Fuller III Service: (none) Author Type: Physician Type: Progress Notes Filed: 02/16/2018 6:29 PM Note Text: The parathyroid hormone level and serum calcium levels are still both elevated. This probably indicates a benign parathyroid tumor that is over-producing hormone. I recommend that you get a parathyroid scan (xray study) to look at the parathyroid gland. My staff will contact you for scheduling. You also have a slightly elevated potassium level, so I recommend that you do not eat bananas, eat or drink much citrus fruit or juice, or eat salt substitute with potassium. I will recheck potassium level in one month. Triglyceride numbers are higher than previous values, so cut down on sugar, bread, potato, pasta, rice, corn, corn syrup and saturated fats. We will follow triglyceride labs over time. Mariaa Fuller III MD BASIC METABOLIC PANL Collected: 02/10/2018 Status: F Source: MAXIE 12:[address] [facility] REPOSITORY TYPE CODE TESTS RESULT OUT OF REFERENCE UNITS RANGE LAB GLU 74-99 mg/dL Glucose 96 Result Comment: The [place] Diabetes Association (ADA) provides guidance for cutoff values for fasting glucose and random glucose. The ADA defines fasting as no caloric intake for at least 8 hours. Fas ting plasma glucose results between 100 to 125 mg/dL indicate increased risk for diabetes (prediabetes). Fasting plasma glucose results greater than or equal to 126 mg/dL meet the criteria for diagnosis of diabetes. In the absence of unequivocal hyperglycemia, results should be confirmed by repeat testing. In a patient with classic symptoms of hyperglycemia or hyperglycemic crisis, random plasma glucose results greater than or equal to 200 mg/dL meet the criteria for diagnosis of diabetes. Reference: Standards of Medical Care in Diabetes 2016, [place] Diabetes Association. Diabetes Care. 2016.39(Suppl 1). LAB BUN 7-21 mg/dL BUN High 25 LAB CRET 0.58-0.96 mg/dL Creatinine High 1.20 LAB NA 136-144 mmol/L Sodium 141 LAB K 3.7-5.1 mmol/L Potassium High 5.2 LAB CL 97-105 mmol/L Chloride 104 LAB CO2 22-30 mmol/L CO2 25 LAB AGAP 9-18 mmol/L Anion Gap 12 LAB CA 8.5-10.2 mg/dL Calcium, High Total 11.1 LAB GFRAA eGFR- Amer. 52 LAB GFRNAA . eGFR-All Other Races 43 Result Comment: eGFR (Estimated GFR) Units of measure: mL/min/1.73 meters squared eGFR is derived from the reexpressed MDRD Study equation using the following parameters: serum creatinine, age, gender and race. The creatinine assay has been calibrated to be traceable to IDMS. An eGFR <60 mL/min/1.73m2 for >3 months is consistent with chronic kidney disease. Refer to KDOQI guidelines for clinical interpretation. In patients with unstable renal function, e.g. those with acute kidney injury, the eGFR may not accurately reflect actual GFR. Performed By: #### BMP, LIPB, LDLDCT #### [facility] [place] [facility] [address] [place], [place] [address] LIPID PANEL, BASIC Collected: 02/10/2018 Status: F Source: MAXIE 12:32 PM [facility] REPOSITORY TYPE CODE TESTS RESULT OUT OF REFERENCE UNITS RANGE LAB CHOL <200 mg/dL Cholesterol High 288 Result Comment: <200 mg/dL, Desirable 200-239 mg/dL, Borderline high >239 mg/dL, High LAB TRIGLY <150 mg/dL Triglyceride High 520 Result Comment: <150 mg/dL, Normal 150-199 mg/dL, Borderline high 200-499 mg/dL, High >499 mg/dL, Very high LAB HDL >39 mg/dL HDL-Cholesterol 44 Result Comment: 40-59 mg/dL, Acceptable >59 mg/dL, High: Negative risk factor for coronary heart disease <40 mg/dL, Low: Positive risk factor for coronary heart disease LAB LDL <100 mg/dL LDL-Cholesterol Unable to calculate due to increased Triglycerides. See LDL-Chol, Direct. LAB NONHDL <130 mg/dL Non HDL Cholesterol 244 High Result Comment: <130 mg/dL, Optimal 130-159 mg/dL, Near optimal/above optimal 160-189 mg/dL, Borderline high 190-219 mg/dL, High >219 mg/dL, Very high Secondary prevention optimal non HDL Cholesterol levels are recommended to be < 100 mg/dL LAB FT hrs Fasting Time 14 LAB VLDL <30 mg/dL VLDL Unable Cholesterol to calculate due to increased Triglycerides. See LDL-Chol, Direct. LAB TCHDL <5.10 TC:HDL Ratio 6.55 High LAB LDLHDL <2.54 LDL:HDL Ratio Unable to calculate due to elevated Triglycerides. Result Comment: Reference: 1. National Cholesterol Education Program ATP III Guideline At-A-Glance Quick Desk Reference: National Heart, Lung, and Blood [place]. National Institutes of Health. 2001: NIH Publication No. 01-3305. 2. An International Atherosclerosis Society position paper: global recommendations for the management of dyslipidemia: executive summary, Atherosclerosis. 2014: 232(2):410-413. Performed By: #### BMP, LIPB, LDLDCT #### [facility] [place] [email or web address] [address] [place], [place] [address] LDL-CHOL, DIRECT Collected: 02/10/2018 Status: F Source: MAXIE 12:32 PM [facility] REPOSITORY TYPE CODE TESTS RESULT OUT OF REFERENCE UNITS RANGE LAB LDLDIR <100 mg/dL High LDL-Chol, 184 Direct Result Comment: <100 mg/dL, Optimal 100-129 mg/dL, Near optimal/above optimal 130-159 mg/dL, Borderline high 160-189 mg/dL, High >189 mg/dL, Very high Secondary prevention optimal LDL Cholesterol levels are recommended to be < 70 mg/dL LAB VLDL1 <30 mg/dL VLDL Cholesterol High 60 Performed By: #### BMP, LIPB, LDLDCT #### [facility] [place] [email or web address] [address] [place], [place] [address] PTH, INTACT Collected: 02/10/2018 Status: F Source: MAXIE 12:32 PM [facility] REPOSITORY TYPE CODE TESTS RESULT OUT OF REFERENCE UNITS RANGE LAB PTH 15-65 pg/mL High PTH, Intact 71 Performed By: #### PTHI #### [facility] [place] [facility] [address] [place], [place] [address] PROGRESS Observed: 02/10/2018 Status: COMPLETED Source: MAXIE 11:[address] [facility] REPOSITORY HNO ID: [id number] Author: Mariaa Fuller III Service: (none) Author Type: Physician Type: Progress Notes Filed: 02/10/2018 12:52 PM Note Text: SUBJECTIVE: Chief Complaint: Li Griffith is a 82 year old female who presents for a comprehensive problem evaluation. New concerns today include 1. occasional dysphagia of sandwich in proximal esophagus that is cleared with water. Present for mos 2. hyperparathyroidism with mild hypercalcemia. Dr Raymond managing without meds at this time 3. hx of claudication--pain post L calf with walking > 25 ft. Used wheelchair to get to office Dr Vicky Fuller performed balloon angioplasty LLE 4. 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 hx of CHF--stable 6. hx of ischemic cardiomyopathy. stable. No chest pain, angina, COUGHLIN. s/p pacemaker doing well . 7. last fall struck in head with volleyball. Subsequently, hit in L head by basketball ~6 mos ago. Few wks later she developed pain L [employer] with blood in L eye and eccymosis inferior to L eye. Then for several mos she has had pain episodically L TMJ and L frontal head. Head turn to R causes mild discomfort L lat neck. 8. skin lesion R cheek and dorsum R hand. Not improving 9. ch insomnia with anxiety. States she does not sleep if she does not take ativan. Current Outpatient Prescriptions on File Prior to Visit: LORazepam (ATIVAN) 1 mg tablet Take one(1) tablet at bedtime as needed for anxiety/insomnia meloxicam (MOBIC) 15 mg tablet Take 1 tablet by mouth once daily. With food. Rhjuhso-Lqftgfjncbsfl-Ghowwbrc (EXCEDRIN) 250-250-65 mg per tablet Take 1 tablet by mouth every 6 hours as needed for Pain. levothyroxine (SYNTHROID) 100 mcg tablet TAKE 1 TABLET BY MOUTH ONE TIME DAILY ON AN EMPTY STOMACH DIGOX 125 mcg tablet TAKE 1 TABLET BY MOUTH ONE TIME DAILY clopidogrel (PLAVIX) 75 mg tablet TAKE 1 TABLET BY MOUTH EVERY DAY spironolactone (ALDACTONE) 25 mg tablet Take 1 tablet by mouth once daily. losartan (COZAAR) 100 mg tablet TAKE 1 TABLET BY MOUTH ONE TIME DAILY carvedilol (COREG) 25 mg tablet TAKE 1 TABLET BY MOUTH TWICE DAILY furosemide (LASIX) 20 mg tablet TAKE 1 TABLET BY MOUTH ONE TIME DAILY nitroglycerin sublingual (NITROSTAT) 0.4 mg SL tablet Dissolve 1 tablet under the tongue as needed. DISSOLVE ON TONGUE FOR CHEST PAIN. IF NO PAIN RELIEF, CALL 911 OTC PRODUCT Vitamin D 1000 mg daily. No current facility-administered medications on file prior to visit. PAST MEDICAL HISTORY Diagnosis Date - Actinic keratosis 08/13/2011 - Cardiomyopathy (HCC) 03/29/2014 - CHF (congestive heart failure) ([facility]) 08/11/2010 - Chronic kidney disease (CKD), stage III (moderate) 11/18/2016 - Claudication ([facility]) 06/16/2017 - Diverticulosis of colon (without mention of hemorrhage) Diverticulosis - Essential hypertension, benign - External hemorrhoids without mention of complication - Hypercalcemia 02/19/2017 - Internal hemorrhoids without mention of complication - Lumbar degenerative disc disease 06/30/2013 - Malignant neoplasm of breast (female), unspecified site Breast cancer - Other osteoporosis - Pure hypercholesterolemia - 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 - Unspecified hemorrhoids without mention of complication Hemorrhoids - Unspecified hypothyroidism MENSTRUAL HISTORY PERIOD REGULARITY: FLOW CHARACTERISTICS: DYSMENORRHEA: CYCLIC SYMPTOMS: HORMONE REPLACEMENT: PAST SURGICAL HISTORY Procedure Laterality Date - CABG, ARTERIAL, THREE 07/29/09 - cardiac pacemaker 07/29/09 - COLONOSCOP W/ OR W/O [facility] SPEC 06/05/10 - COLONOSCOP W/ OR W/O [facility] SPEC Colonoscopy - EGD W/O OR W/BRUSH/WASH 05/09/2015 EGD - HEART SURGERY HX - MASTECTOMY 06/19/99 mrm left breast - PERC TRANSL COR ANGIO 03/23/07 Percutaneous Transluminal Coronary Angio Status - TOTAL ABDOM HYSTERECTOMY 2003 BRENDA,BSO FAMILY HISTORY Problem Relation Age of Onset - Cancer Mother ovarian - Heart Father - Breast Cancer Sister metastatic to bone Social History Marital status: Spouse name: Years of education: Number of children: Social History Main Topics Smoking status: Never Smoker Smokeless tobacco: Never Used Alcohol use: No Drug use: No Immunization History Administered Date(s) Administered DT(PEDIATRIC) 09/08/1999 Influenza Seasonal - High Dose - Age 65+ 07/15/2015 07/08/2016 Influenza Vaccine, Split-Non Spec 08/11/2010 08/13/2011 08/26/2012 06/30/2013 Pneumococcal-13 Vac Conjugate 07/15/2015 Pneumovax 06/17/2004 ACTIVE PROBLEM LIST Essential Hypertension, Benign Acquired Hypothyroidism Osteoporosis, Unspecified Pure Hypercholesterolemia Malignant Neoplasm of Breast (Female), Unspecified Site Coronary Atherosclerosis Unspecified Vitamin D Deficiency 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 DERMATOLOGIC: see HPI EYES: ENT: RESPIRATORY: Denies any cough, dyspnea, or wheezing. CARDIOVASCULAR: Denies any chest pain with exertion or at rest, palpitations, syncope, or edema. Claudication L post calf BREASTS: GASTROINTESTINAL: Denies any nausea, vomiting, abdominal pain, heartburn, changes in bowel habit, Denies any rectal bleeding. GENITOURINARY: Denies any urinary frequency, urgency, incontinence, dysuria. MUSCULOSKELETAL: Denies any joint swelling, crepitus, joint pain, or loss of range of motion., Denies back pain. NEURO: Denies any headaches, tremors, dizziness, vertigo, memory loss, confusion., Denies weakness, numbness or tingling.. PSYCHIATRIC: Positive for anxiety, sleep difficulties HEMATOLOGIC/LYMPHATIC/IMMUNOLOGIC: Denies anemia, bruising, bleeding abnormalities. ENDOCRINE: Denies any heat or cold intolerance, polyuria or polydipsia. OBJECTIVE: PHYSICAL EXAMINATION: BP 149/70 Pulse 60 Resp 16 Ht 152.4 cm (5') Wt 54.9 kg (121 lb) BMI 23.63 kg/m? GENERAL APPEARANCE: Well appearing, alert, in no acute distress, well-hydrated, well nourished. SKIN: Erythematous irregular macule right cheek near the angle of the jaw. Rough , But no ulceration or bleeding. HEAD: No significant findings NECK: Supple, no lymphadenopathy, normal thyroid, no carotid bruits, no JVD and restricted head turn bilat. Mild tenderness L post- lat neck. No muscle spasm BACK: Back symmetric, Normal curvature, no LS tenderness. LUNGS: Normal breath sounds, Clear to auscultation, No wheezes, No crackles HEART:Normal PMI, Regular rate and rhythm, Normal heart sounds, S1 and S2 and No murmurs. BREASTS: Exam deferred ABDOMEN: Soft, Non-tender, No palpable masses and No hepatosplenomegaly. EXTREMITIES:diminished DP pulses bilat.. 4 sec capillary filling L foot/toes. 3 sec capillary filliing R foot/toes. NEURO: Awake, alert and oriented x 3, Normal gait and No involuntary motions. GENITALIA: exam deferred RECTAL: exam deferred ASSESSMENT peripheral arteriosclerosis with claudication-stable hyperparathyroidism with hypercalcemia cardiomyopathy with CHF--stable no evidence of temporal arteritis ch anxiety with insomnia--reasonable use of lorazapam skin lesion R face--?skin cancer sun damaged skin dorsum of hand PLAN: healthy diet and activity as able refer to dermatology to evaluate skin lesion right cheek same medications follow up with specialists as appointed reduce lorazapam 0.5mg at bedtime as needed for anxiety or sleep labs as ordered Mariaa Fuller III MD [facility]AS website checked and validated. All prescriptions have been APPROPRIATELY filled. No suspicious activity was identified.- 02/10/2018 by LIA Castelan MD, III MD CNOV Observed: 02/10/2018 Status: COMPLETED Source: MAXIE 11:[address] [facility] REPOSITORY [facility] LI GRIFFITH ([id number]) 1935 F NFR Date Time Provider Department 02/10/18 11:00 AM MARIAA FULLER III During your visit today, we recorded the following information about you: Pulse Respiration Blood pressure Weight 60/minute 16/minute 149/70 54.9 kg Height 1.524 m Mariaa Fuller III MD 02/10/2018 12:52 PM Signed SUBJECTIVE: Chief Complaint: Li Griffith is a 82 year old female who presents for a comprehensive problem evaluation. New concerns today include 1. occasional dysphagia of sandwich in proximal esophagus that is cleared with water. Present for mos 2. hyperparathyroidism with mild hypercalcemia. Dr Raymond managing without meds at this time 3. hx of claudication--pain post L calf with walking > 25 ft. Used wheelchair to get to office Dr Vicky Fuller performed balloon angioplasty LLE 4. 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 hx of CHF--stable 6. hx of ischemic cardiomyopathy. stable. No chest pain, angina, COUGHLIN. s/p pacemaker doing well . 7. last fall struck in head with volleyball. Subsequently, hit in L head by basketball ~6 mos ago. Few wks later she developed pain L [employer] with blood in L eye and eccymosis inferior to L eye. Then for several mos she has had pain episodically L TMJ and L frontal head. Head turn to R causes mild discomfort L lat neck. 8. skin lesion R cheek and dorsum R hand. Not improving 9. ch insomnia with anxiety. States she does not sleep if she does not take ativan. Current Outpatient Prescriptions on File Prior to Visit: LORazepam (ATIVAN) 1 mg tablet Take one(1) tablet at bedtime as needed for anxiety/insomnia meloxicam (MOBIC) 15 mg tablet Take 1 tablet by mouth once daily. With food. Qzkgfxy-Gbwziypkyqosj-Lqruqtqb (EXCEDRIN) 250-250-65 mg per tablet Take 1 tablet by mouth every 6 hours as needed for Pain. levothyroxine (SYNTHROID) 100 mcg tablet TAKE 1 TABLET BY MOUTH ONE TIME DAILY ON AN EMPTY STOMACH DIGOX 125 mcg tablet TAKE 1 TABLET BY MOUTH ONE TIME DAILY clopidogrel (PLAVIX) 75 mg tablet TAKE 1 TABLET BY MOUTH EVERY DAY spironolactone (ALDACTONE) 25 mg tablet Take 1 tablet by mouth once daily. losartan (COZAAR) 100 mg tablet TAKE 1 TABLET BY MOUTH ONE TIME DAILY carvedilol (COREG) 25 mg tablet TAKE 1 TABLET BY MOUTH TWICE DAILY furosemide (LASIX) 20 mg tablet TAKE 1 TABLET BY MOUTH ONE TIME DAILY nitroglycerin sublingual (NITROSTAT) 0.4 mg SL tablet Dissolve 1 tablet under the tongue as needed. DISSOLVE ON TONGUE FOR CHEST PAIN. IF NO PAIN RELIEF, CALL 911 OTC PRODUCT Vitamin D 1000 mg daily. No current facility-administered medications on file prior to visit. PAST MEDICAL HISTORY Diagnosis Date - Actinic keratosis 08/13/2011 - Cardiomyopathy (HCC) 03/29/2014 - CHF (congestive heart failure) ([facility]) 08/11/2010 - Chronic kidney disease (CKD), stage III (moderate) 11/18/2016 - Claudication ([facility]) 06/16/2017 - Diverticulosis of colon (without mention of hemorrhage) Diverticulosis - Essential hypertension, benign - External hemorrhoids without mention of complication - Hypercalcemia 02/19/2017 - Internal hemorrhoids without mention of complication - Lumbar degenerative disc disease 06/30/2013 - Malignant neoplasm of breast (female), unspecified site Breast cancer - Other osteoporosis - Pure hypercholesterolemia - 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 - Unspecified hemorrhoids without mention of complication Hemorrhoids - Unspecified hypothyroidism MENSTRUAL HISTORY PERIOD REGULARITY: FLOW CHARACTERISTICS: DYSMENORRHEA: CYCLIC SYMPTOMS: HORMONE REPLACEMENT: PAST SURGICAL HISTORY Procedure Laterality Date - CABG, ARTERIAL, THREE 07/29/09 - cardiac pacemaker 07/29/09 - COLONOSCOP W/ OR W/O [facility] SPEC 06/05/10 - COLONOSCOP W/ OR W/O [facility] SPEC Colonoscopy - EGD W/O OR W/BRUSH/WASH 05/09/2015 EGD - HEART SURGERY HX - MASTECTOMY 06/19/99 mrm left breast - [facility] TRANSL COR ANGIO 03/23/07 Percutaneous Transluminal Coronary Angio Status - TOTAL ABDOM HYSTERECTOMY 2003 BRENDA,BSO FAMILY HISTORY Problem Relation Age of Onset - Cancer Mother ovarian - Heart Father - Breast Cancer Sister metastatic to bone Social History Marital status: Spouse name: Years of education: Number of children: Social History Main Topics Smoking status: Never Smoker Smokeless tobacco: Never Used Alcohol use: No Drug use: No Immunization History Administered Date(s) Administered DT(PEDIATRIC) 09/08/1999 Influenza Seasonal - High Dose - Age 65+ 07/15/2015 07/08/2016 Influenza Vaccine, Split-Non Spec 08/11/2010 08/13/2011 08/26/2012 06/30/2013 Pneumococcal-13 Vac Conjugate 07/15/2015 Pneumovax 06/17/2004 ACTIVE PROBLEM LIST Essential Hypertension, Benign Acquired Hypothyroidism Osteoporosis, Unspecified Pure Hypercholesterolemia Malignant Neoplasm of Breast (Female), Unspecified Site Coronary Atherosclerosis Unspecified Vitamin D Deficiency 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 DERMATOLOGIC: see HPI EYES: ENT: RESPIRATORY: Denies any cough, dyspnea, or wheezing. CARDIOVASCULAR: Denies any chest pain with exertion or at rest, palpitations, syncope, or edema. Claudication L post calf BREASTS: GASTROINTESTINAL: Denies any nausea, vomiting, abdominal pain, heartburn, changes in bowel habit, Denies any rectal bleeding. GENITOURINARY: Denies any urinary frequency, urgency, incontinence, dysuria. MUSCULOSKELETAL: Denies any joint swelling, crepitus, joint pain, or loss of range of motion., Denies back pain. NEURO: Denies any headaches, tremors, dizziness, vertigo, memory loss, confusion., Denies weakness, numbness or tingling.. PSYCHIATRIC: Positive for anxiety, sleep difficulties HEMATOLOGIC/LYMPHATIC/IMMUNOLOGIC: Denies anemia, bruising, bleeding abnormalities. ENDOCRINE: Denies any heat or cold intolerance, polyuria or polydipsia. OBJECTIVE: PHYSICAL EXAMINATION: BP 149/70 Pulse 60 Resp 16 Ht 152.4 cm (5') Wt 54.9 kg (121 lb) BMI 23.63 kg/m? GENERAL APPEARANCE: Well appearing, alert, in no acute distress, well-hydrated, well nourished. SKIN: Erythematous irregular macule right cheek near the angle of the jaw. Rough , But no ulceration or bleeding. HEAD: No significant findings NECK: Supple, no lymphadenopathy, normal thyroid, no carotid bruits, no JVD and restricted head turn bilat. Mild tenderness L post-lat neck. No muscle spasm BACK: Back symmetric, Normal curvature, no LS tenderness. LUNGS: Normal breath sounds, Clear to auscultation, No wheezes, No crackles HEART:Normal PMI, Regular rate and rhythm, Normal heart sounds, S1 and S2 and No murmurs. BREASTS: Exam deferred ABDOMEN: Soft, Non-tender, No palpable masses and No hepatosplenomegaly. EXTREMITIES:diminished DP pulses bilat.. 4 sec capillary filling L foot/toes. 3 sec capillary filliing R foot/toes. NEURO: Awake, alert and oriented x 3, Normal gait and No involuntary motions. GENITALIA: exam deferred RECTAL: exam deferred ASSESSMENT peripheral arteriosclerosis with claudication-stable hyperparathyroidism with hypercalcemia cardiomyopathy with CHF--stable no evidence of temporal arteritis ch anxiety with insomnia--reasonable use of lorazapam skin lesion R face--?skin cancer sun damaged skin dorsum of hand PLAN: healthy diet and activity as able refer to dermatology to evaluate skin lesion right cheek same medications follow up with specialists as appointed reduce lorazapam 0.5mg at bedtime as needed for anxiety or sleep labs as ordered Mariaa Fuller III MD [facility]AS website checked and validated. All prescriptions have been APPROPRIATELY filled. No suspicious activity was identified.- 02/10/2018 by LIA Castelan MD, III MD Frank A Cebul, III MD 02/10/2018 12:09 PM Signed PLAN: healthy diet and activity as able refer to dermatology to evaluate skin lesion right cheek same medications follow up with specialists as appointed reduce lorazapam 0.5mg at bedtime as needed for anxiety or sleep labs as ordered Mariaa Fuller III MD Referring Provider: VERNON HARDING (CLERICAL ADMINISTRATIVE ASSISTANT) [[id number]] Allergies As of Date: 02/10/2018 Noted Allergy Reaction ACCUPRIL (QUINAPRIL HCL) 04/14/2005 2 - Rash ARTHROTEC 50 (DICLOFENAC-MISOPROS*04/14/2005 8 - GI Upset FOSAMAX (ALENDRONATE SODIUM) 01/31/2007 5 - Intolerance Comments: MUSCLE WEAKNESS LIPITOR (ATORVASTATIN CALCIUM) 06/29/2012 14 - Other: See Comments Comments: Muscle achiness MACRODANTIN (NITROFURANTOIN) 04/14/2005 2 - Rash PERCOCET (OXYCODONE-ACETAMINOPHEN)04/14/2005 5 - Intolerance Comments: off balance, elevated blood pressure HJYQORG-BAZ-MXW REDUCTASE INHIBIT*08/30/2015 17 - Myalgia Date Reviewed: 02/10/2018 Reviewed by: Rachael ([facility]) JACKY Dee - Fully Assessed Reason for Visit: Physical [83] Left side of head hurts [Other] Cmt: 04/01 Knees [Other] Cmt: 06/01 Primary Visit Diagnosis:Essential hypertension, benign [I10] Other Visit Diagnoses:Chronic insomnia [F51.04] Acquired hypothyroidism [E03.9] Heart block AV third degree (HCC) [I44.2] Chronic congestive heart failure, unspecified heart failure type (HCC) [I50.9] Ischemic cardiomyopathy [I25.5] Statin intolerance [Z78.9] Chronic kidney disease (CKD), stage III (moderate) [N18.3] Hyperparathyroidism (HCC) [E21.3] Claudication (HCC) [I73.9] Skin lesion of cheek [L98.9] Order(s):PTH INTACT BLD [SQPTHI] Order #: [id number] FUTURE LORazepam (ATIVAN) 0.5 mg tabTake 1 tablet by mouth at bedtime as needed for up to 30 days.Disp: 30 tabletRfl: 0 CONSULT TO DERMATOLOGY [9006] Order #: [id number]: 1 Prescriptions as of 02/10/2018 Sig: MELOXICAM 15 MG TABLET Take 1 tablet by mouth once d* SRJYOKB-AGHXHDQONEPOG-VBFVQID* Take 1 tablet by mouth every * LEVOTHYROXINE 100 MCG TABLET TAKE 1 TABLET BY MOUTH ONE TI* DIGOX 125 MCG TABLET TAKE 1 TABLET BY MOUTH ONE TI* CLOPIDOGREL 75 MG TABLET TAKE 1 TABLET BY MOUTH EVERY * SPIRONOLACTONE 25 MG TABLET Take 1 tablet by mouth once d* LOSARTAN 100 MG TABLET TAKE 1 TABLET BY MOUTH ONE TI* CARVEDILOL 25 MG TABLET TAKE 1 TABLET BY MOUTH TWICE * FUROSEMIDE 20 MG TABLET TAKE 1 TABLET BY MOUTH ONE TI* NITROGLYCERIN 0.4 MG SUBLINGU* Dissolve 1 tablet under the t* OTC PRODUCT Vitamin D 1000 mg daily. LORAZEPAM 0.5 MG TABLET Take 1 tablet by mouth at bed* Problem List As Of Date 02/10/2018 Noted Resolved BENIGN HYPERTENSION [I10] INVALID FOR* Acquired hypothyroidism [E03.9] INVALID FOR* OSTEOPOROSIS NOS [M81.0] INVALID FOR* Pure hypercholesterolemia [E78.00] INVALID FOR* MALIGN NEOPL BREAST NOS [C50.919] INVALID FOR* Coronary atherosclerosis [I25.10] INVALID FOR* VITAMIN D DEFICIENCY NOS [E55.9] INVALID FOR* 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] INVALID FOR* Postsurgical Aortocoronary Bypass Status [Z95.1]INVALID FOR* CHF (congestive heart failure) [I50.9] INVALID FOR* Lumbar degenerative disc disease [M51.36] INVALID FOR* Cardiomyopathy (HCC) [I42.9] INVALID FOR* History of breast cancer in female [Z85.3] INVALID FOR* Hyperlipidemia LDL goal <100 [E78.5] INVALID FOR* Statin intolerance [Z78.9] INVALID FOR* History of coronary artery stent placement [Z95*INVALID FOR* Chronic kidney disease (CKD), stage III (modera*INVALID FOR* Chronic anticoagulation [Z79.01] INVALID FOR* Hypercalcemia [E83.52] INVALID FOR* Prominent vein [I87.8] INVALID FOR* Vascular headache [G44.1] INVALID FOR* Hyperparathyroidism (HCC) [E21.3] INVALID FOR* Claudication (HCC) [I73.9] INVALID FOR* Skin lesion of cheek [L98.9] INVALID FOR* Other instructions from your clinician: PLAN: healthy diet and activity as able refer to dermatology to evaluate skin lesion right cheek same medications follow up with specialists as appointed reduce lorazapam 0.5mg at bedtime as needed for anxiety or sleep labs as ordered Mariaa Fuller III MD Prescriptions ordered this encounter Disp Refills Start End LORAZEPAM 0.5 MG TABLET 30 t* 0 02/10/2018 03/12/2018 Class: Print RX Route: ORAL Sig: Take 1 tablet by mouth at bedtime as needed for up to 30 days. Medications Discontinued During This Encounter clotrimazole-betamethasone (LOTRISON* 15 g 1 11/18/2016 02/10/2018 Route: TOPICAL Sig: Apply 1 application to affected area twice daily as needed. Disc: Course of therapy completed rivaroxaban (XARELTO) 15 mg tablet 90 t* 3 12/08/2016 02/10/2018 Route: ORAL Sig: Take 1 tablet by mouth daily with dinner. Disc: Course of therapy completed hydrOXYzine pamoate (VISTARIL) 25 mg* 30 c* 2 03/09/2017 02/10/2018 Route: ORAL Sig: Take 1 capsule by mouth three times daily as needed for Itching/Rash. Disc: Course of therapy completed LORazepam (ATIVAN) 1 mg tablet 30 t* 0 01/24/2018 02/10/2018 Class: Print RX Sig: Take one(1) tablet at bedtime as needed for anxiety/insomnia Disc: Dosage adjustment Encounter Status:Closed by MARIAA FULLER III, MD on 02/10/18 CNPTOUTREA Observed: 01/25/2018 Status: COMPLETED Source: [place] 12:[address] [facility] REPOSITORY Patient Outreach ([facility]) LI GRIFFITH ([id number]) 1935 F NFR Date Time Provider Department 01/25/18 MARIAA FULLER III [facility] During your visit today, we recorded the following information about you: Allergies As of Date: 01/25/2018 Noted Allergy Reaction ACCUPRIL (QUINAPRIL HCL) 04/14/2005 2 - Rash ARTHROTEC 50 (DICLOFENAC-MISOPROS*04/14/2005 8 - GI Upset FOSAMAX (ALENDRONATE SODIUM) 01/31/2007 5 - Intolerance Comments: MUSCLE WEAKNESS LIPITOR (ATORVASTATIN CALCIUM) 06/29/2012 14 - Other: See Comments Comments: Muscle achiness MACRODANTIN (NITROFURANTOIN) 04/14/2005 2 - Rash PERCOCET (OXYCODONE-ACETAMINOPHEN)04/14/2005 5 - Intolerance Comments: off balance, elevated blood pressure NBWKLSF-NAX-QEQ REDUCTASE INHIBIT*08/30/2015 17 - Myalgia Date Reviewed: 01/24/2018 Reviewed by: Carmen Aviles LPN - Fully Assessed Visit Diagnosis:Medication management [Z79.899] Order(s):BASIC METABOLIC PNL [SQBMP] Order #: [id number] FUTURE LIPID PANEL BASIC [SQLIPB] Order #: [id number] FUTURE Prescriptions as of 01/25/2018 Sig: X LORAZEPAM 1 MG TABLET Take one(1) tablet at bedtime* MELOXICAM 15 MG TABLET Take 1 tablet by mouth once d* IKGHWYZ-NKPNBGLKOFHNW-IQKBNHT* Take 1 tablet by mouth every * LEVOTHYROXINE 100 MCG TABLET TAKE 1 TABLET BY MOUTH ONE TI* DIGOX 125 MCG TABLET TAKE 1 TABLET BY MOUTH ONE TI* X CLOPIDOGREL 75 MG TABLET TAKE 1 TABLET BY MOUTH EVERY * X SPIRONOLACTONE 25 MG TABLET Take 1 tablet by mouth once d* X LOSARTAN 100 MG TABLET TAKE 1 TABLET BY MOUTH ONE TI* X HYDROXYZINE PAMOATE 25 MG CAP* Take 1 capsule by mouth three* CARVEDILOL 25 MG TABLET TAKE 1 TABLET BY MOUTH TWICE * X FUROSEMIDE 20 MG TABLET TAKE 1 TABLET BY MOUTH ONE TI* X RIVAROXABAN 15 MG TABLET Take 1 tablet by mouth daily * X CLOTRIMAZOLE-BETAMETHASONE 1 * Apply 1 application to affect* NITROGLYCERIN 0.4 MG SUBLINGU* Dissolve 1 tablet under the t* OTC PRODUCT Vitamin D 1000 mg daily. 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] INVALID FOR* Postsurgical Aortocoronary Bypass Status [Z95.1]INVALID FOR* CHF (congestive heart failure) [I50.9] INVALID FOR* Lumbar degenerative disc disease [M51.36] INVALID FOR* Cardiomyopathy (HCC) [I42.9] INVALID FOR* History of breast cancer in female [Z85.3] INVALID FOR* Hyperlipidemia LDL goal <100 [E78.5] INVALID FOR* Statin intolerance [Z78.9] INVALID FOR* History of coronary artery stent placement [Z95*INVALID FOR* Chronic kidney disease (CKD), stage III (modera*INVALID FOR* Chronic anticoagulation [Z79.01] INVALID FOR* Temporal arteritis (HCC) [M31.6] INVALID FOR* Hypercalcemia [E83.52] INVALID FOR* More... Prominent vein [I87.8] INVALID FOR* Vascular headache [G44.1] INVALID FOR* Hyperparathyroidism (HCC) [E21.3] INVALID FOR* More... Claudication (HCC) [I73.9] INVALID FOR* Encounter Status:Closed by MELVA MENJIVAR on 06/03/18 CNOV Observed: 01/24/2018 Status: COMPLETED Source: [place] 1:[address] [facility] REPOSITORY Office Visit (FAMPWS) GRIFFITHLI ([id number]) 1935 F NFR Date Time Provider Department 01/24/18 1:40 PM VERNON HARDING (ERWIN) [facility] During your visit today, we recorded the following information about you: Temperature Pulse Respiration Blood pressure 97 degrees 60/minute 16/minute 130/70 Weight 55.8 kg Vernon Harding, MSN [employer] 01/24/2018 2:06 PM Signed Chief Complaint Patient presents with: Refill Request HPI Ligemma Griffith is a 82 year old female who presents here today for Above Complaints. Here for refill of Lorazepam. Took last dose last night. Uses only at night for sleep. Reports has been on this for some time, does well on current dose. Reports able to sleep 7 hours at a time and feels well rested. Denies any side effects. The ROS is otherwise negative. Past medical history, appointments, medications, allergies reviewed. Patient Allergies ALLERGIES Allergen Reactions - Accupril [Quinapril* Rash - Arthrotec 50 [Diclo* GI Upset - Fosamax [Alendronat* Intolerance MUSCLE WEAKNESS - Lipitor [Atorvastat* Other: See Comments Muscle achiness - Macrodantin [Nitrof* Rash - Percocet [Oxycodone* Intolerance off balance, elevated blood pressure - Gsyouvi-Gus-Ybm Red* Myalgia Current Medications Current Outpatient Prescriptions on File Prior to Visit: LORazepam (ATIVAN) 1 mg tablet Take one(1) tablet at bedtime as needed for anxiety/insomnia meloxicam (MOBIC) 15 mg tablet Take 1 tablet by mouth once daily. With food. Dutedix-Uhcprrdqpezxq-Vsabkibj (EXCEDRIN) 250-250-65 mg per tablet Take 1 tablet by mouth every 6 hours as needed for Pain. levothyroxine (SYNTHROID) 100 mcg tablet TAKE 1 TABLET BY MOUTH ONE TIME DAILY ON AN EMPTY STOMACH DIGOX 125 mcg tablet TAKE 1 TABLET BY MOUTH ONE TIME DAILY clopidogrel (PLAVIX) 75 mg tablet TAKE 1 TABLET BY MOUTH EVERY DAY spironolactone (ALDACTONE) 25 mg tablet Take 1 tablet by mouth once daily. losartan (COZAAR) 100 mg tablet TAKE 1 TABLET BY MOUTH ONE TIME DAILY carvedilol (COREG) 25 mg tablet TAKE 1 TABLET BY MOUTH TWICE DAILY furosemide (LASIX) 20 mg tablet TAKE 1 TABLET BY MOUTH ONE TIME DAILY nitroglycerin sublingual (NITROSTAT) 0.4 mg SL tablet Dissolve 1 tablet under the tongue as needed. DISSOLVE ON TONGUE FOR CHEST PAIN. IF NO PAIN RELIEF, CALL 911 OTC PRODUCT Vitamin D 1000 mg daily. hydrOXYzine pamoate (VISTARIL) 25 mg capsule Take 1 capsule by mouth three times daily as needed for Itching/Rash. rivaroxaban (XARELTO) 15 mg tablet Take 1 tablet by mouth daily with dinner. clotrimazole-betamethasone (LOTRISONE) cream Apply 1 application to affected area twice daily as needed. No current facility-administered medications on file prior to visit. Previous Medical History PAST MEDICAL HISTORY Diagnosis Date - Actinic keratosis 08/13/2011 - Cardiomyopathy (HCC) 03/29/2014 - CHF (congestive heart failure) (HCC) 08/11/2010 - Chronic kidney disease (CKD), stage III (moderate) 11/18/2016 - Claudication (HCC) 06/16/2017 - Diverticulosis of colon (without mention of hemorrhage) Diverticulosis - Essential hypertension, benign - External hemorrhoids without mention of complication - Hypercalcemia 02/19/2017 - Internal hemorrhoids without mention of complication - Lumbar degenerative disc disease 06/30/2013 - Malignant neoplasm of breast (female), unspecified site Breast cancer - Other osteoporosis - Pure hypercholesterolemia - 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 - Unspecified hemorrhoids without mention of complication Hemorrhoids - Unspecified hypothyroidism Previous Surgical History PAST SURGICAL HISTORY Procedure Laterality Date - CABG, ARTERIAL, THREE 07/29/09 - cardiac pacemaker 07/29/09 - COLONOSCOP W/ OR W/O [facility] SPEC 06/05/10 - COLONOSCOP W/ OR W/O [facility] SPEC Colonoscopy - EGD W/O OR W/BRUSH/WASH 05/09/2015 EGD - HEART SURGERY HX - MASTECTOMY 06/19/99 mrm left breast - PERC TRANSL COR ANGIO 03/23/07 Percutaneous Transluminal Coronary Angio Status - TOTAL ABDOM HYSTERECTOMY 2003 BRENDA,BSO Family History FAMILY HISTORY Problem Relation Age of Onset - Cancer Mother ovarian - Heart Father - Breast Cancer Sister metastatic to bone Social History Social History Marital status: Spouse name: Years of education: Number of children: Social History Main Topics Smoking status: Never Smoker Smokeless tobacco: Never Used Alcohol use: No Drug use: No EXAM: BP 130/70 (BP Site: Left Arm, BP Position: Sitting, BP Cuff Size: Regular Adult) Pulse 60 Temp 36.1 ?C (97 ?F) (Tympanic) Resp 16 Wt 55.8 kg (123 lb) BMI 24.02 kg/m? General Appearance: Well appearing, alert, in no acute distress, well-hydrated, well nourished., Antalgic gait due to OA both knees. Neck: Supple, no adenopathy; thyroid symmetric, normal size, no bruits. Lungs: Lungs clear to auscultation. No wheezing, rhonchi, rales. Heart: RRR without murmur, gallop, or rubs. No ectopy. ASSESSMENT/PLAN: 1. Chronic insomnia - ICD9: 780.52, ICD10: F51.04 OARRS website checked and validated. All prescriptions have been APPROPRIATELY filled. No suspicious activity was identified.- 01/24/2018 by Vernon Harding, MSN [employer] - Rx refilled. - LORAZEPAM 1 MG TABLET Vernon Harding, MSN [employer] Referring Provider: SELF [[id number]] Allergies As of Date: 01/24/2018 Noted Allergy Reaction ACCUPRIL (QUINAPRIL HCL) 04/14/2005 2 - Rash ARTHROTEC 50 (DICLOFENAC-MISOPROS*04/14/2005 8 - GI Upset FOSAMAX (ALENDRONATE SODIUM) 01/31/2007 5 - Intolerance Comments: MUSCLE WEAKNESS LIPITOR (ATORVASTATIN CALCIUM) 06/29/2012 14 - Other: See Comments Comments: Muscle achiness MACRODANTIN (NITROFURANTOIN) 04/14/2005 2 - Rash PERCOCET (OXYCODONE-ACETAMINOPHEN)04/14/2005 5 - Intolerance Comments: off balance, elevated blood pressure SHKRBIU-UDY-GKP REDUCTASE INHIBIT*08/30/2015 17 - Myalgia Date Reviewed: 01/24/2018 Reviewed by: Carmen Aviles LPN - Fully Assessed Reason for Visit: Refill Request [508] Primary Visit Diagnosis:Chronic insomnia [F51.04] Order(s):LORazepam (ATIVAN) 1 mg tabletTake one(1) tablet at bedtime as needed for anxiety/insomniaDisp: 30 tabletRfl: 0 Prescriptions as of 01/24/2018 Sig: LORAZEPAM 1 MG TABLET Take one(1) tablet at bedtime* MELOXICAM 15 MG TABLET Take 1 tablet by mouth once d* ZOYTECJ-ZIRHHZMUCIWRP-RDSHFMB* Take 1 tablet by mouth every * LEVOTHYROXINE 100 MCG TABLET TAKE 1 TABLET BY MOUTH ONE TI* DIGOX 125 MCG TABLET TAKE 1 TABLET BY MOUTH ONE TI* CLOPIDOGREL 75 MG TABLET TAKE 1 TABLET BY MOUTH EVERY * SPIRONOLACTONE 25 MG TABLET Take 1 tablet by mouth once d* LOSARTAN 100 MG TABLET TAKE 1 TABLET BY MOUTH ONE TI* CARVEDILOL 25 MG TABLET TAKE 1 TABLET BY MOUTH TWICE * FUROSEMIDE 20 MG TABLET TAKE 1 TABLET BY MOUTH ONE TI* NITROGLYCERIN 0.4 MG SUBLINGU* Dissolve 1 tablet under the t* OTC PRODUCT Vitamin D 1000 mg daily. 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] INVALID FOR* Postsurgical Aortocoronary Bypass Status [Z95.1]INVALID FOR* CHF (congestive heart failure) [I50.9] INVALID FOR* Lumbar degenerative disc disease [M51.36] INVALID FOR* Cardiomyopathy (HCC) [I42.9] INVALID FOR* History of breast cancer in female [Z85.3] INVALID FOR* Hyperlipidemia LDL goal <100 [E78.5] INVALID FOR* Statin intolerance [Z78.9] INVALID FOR* History of coronary artery stent placement [Z95*INVALID FOR* Chronic kidney disease (CKD), stage III (modera*INVALID FOR* Chronic anticoagulation [Z79.01] INVALID FOR* Temporal arteritis (HCC) [M31.6] INVALID FOR* Hypercalcemia [E83.52] INVALID FOR* Prominent vein [I87.8] INVALID FOR* Vascular headache [G44.1] INVALID FOR* Hyperparathyroidism (HCC) [E21.3] INVALID FOR* Claudication (HCC) [I73.9] INVALID FOR* Prescriptions ordered this encounter Disp Refills Start End LORAZEPAM 1 MG TABLET 30 t* 0 01/24/2018 02/26/2018 Class: Print RX Sig: Take one(1) tablet at bedtime as needed for anxiety/insomnia Medications Discontinued During This Encounter LORazepam (ATIVAN) 1 mg tablet 30 t* 0 12/22/2017 01/24/2018 Class: Call Rx Sig: Take one(1) tablet at bedtime as needed for anxiety/insomnia Disc: Reason for discontinue is not on file. Follow-up and Disposition History Recorded Encounter Status:Closed by VERNON HARDING SVP MONETIZATION on 01/24/18 PROGRESS Observed: 01/24/2018 Status: COMPLETED Source: [place] 1:31 PM [facility] REPOSITORY HNO ID: [id number] Author: Vernon Nelson (Passenger Barge Master) Mehdi Service: (none) Author Type: Nurse Practitioner Type: Progress Notes Filed: 01/24/2018 2:06 PM Note Text: Chief Complaint Patient presents with: Refill Request HPI Li Griffith is a 82 year old female who presents here today for Above Complaints. Here for refill of Lorazepam. Took last dose last night. Uses only at night for sleep. Reports has been on this for some time, does well on current dose. Reports able to sleep 7 hours at a time and feels well rested. Denies any side effects. The ROS is otherwise negative. Past medical history, appointments, medications, allergies reviewed. Patient Allergies ALLERGIES Allergen Reactions - Accupril [Quinapril* Rash - Arthrotec 50 [Diclo* GI Upset - Fosamax [Alendronat* Intolerance MUSCLE WEAKNESS - Lipitor [Atorvastat* Other: See Comments Muscle achiness - Macrodantin [Nitrof* Rash - Percocet [Oxycodone* Intolerance off balance, elevated blood pressure - Epqpeab-Kkx-Tik Red* Myalgia Current Medications Current Outpatient Prescriptions on File Prior to Visit: LORazepam (ATIVAN) 1 mg tablet Take one(1) tablet at bedtime as needed for anxiety/insomnia meloxicam (MOBIC) 15 mg tablet Take 1 tablet by mouth once daily. With food. Cwjmnxu-Vtmimwiucyocx-Mkjkhrbj (EXCEDRIN) 250-250-65 mg per tablet Take 1 tablet by mouth every 6 hours as needed for Pain. levothyroxine (SYNTHROID) 100 mcg tablet TAKE 1 TABLET BY MOUTH ONE TIME DAILY ON AN EMPTY STOMACH DIGOX 125 mcg tablet TAKE 1 TABLET BY MOUTH ONE TIME DAILY clopidogrel (PLAVIX) 75 mg tablet TAKE 1 TABLET BY MOUTH EVERY DAY spironolactone (ALDACTONE) 25 mg tablet Take 1 tablet by mouth once daily. losartan (COZAAR) 100 mg tablet TAKE 1 TABLET BY MOUTH ONE TIME DAILY carvedilol (COREG) 25 mg tablet TAKE 1 TABLET BY MOUTH TWICE DAILY furosemide (LASIX) 20 mg tablet TAKE 1 TABLET BY MOUTH ONE TIME DAILY nitroglycerin sublingual (NITROSTAT) 0.4 mg SL tablet Dissolve 1 tablet under the tongue as needed. DISSOLVE ON TONGUE FOR CHEST PAIN. IF NO PAIN RELIEF, CALL 911 OTC PRODUCT Vitamin D 1000 mg daily. hydrOXYzine pamoate (VISTARIL) 25 mg capsule Take 1 capsule by mouth three times daily as needed for Itching/Rash. rivaroxaban (XARELTO) 15 mg tablet Take 1 tablet by mouth daily with dinner. clotrimazole-betamethasone (LOTRISONE) cream Apply 1 application to affected area twice daily as needed. No current facility-administered medications on file prior to visit. Previous Medical History PAST MEDICAL HISTORY Diagnosis Date - Actinic keratosis 08/13/2011 - Cardiomyopathy (HCC) 03/29/2014 - CHF (congestive heart failure) ([facility]) 08/11/2010 - Chronic kidney disease (CKD), stage III (moderate) 11/18/2016 - Claudication ([facility]) 06/16/2017 - Diverticulosis of colon (without mention of hemorrhage) Diverticulosis - Essential hypertension, benign - External hemorrhoids without mention of complication - Hypercalcemia 02/19/2017 - Internal hemorrhoids without mention of complication - Lumbar degenerative disc disease 06/30/2013 - Malignant neoplasm of breast (female), unspecified site Breast cancer - Other osteoporosis - Pure hypercholesterolemia - 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 - Unspecified hemorrhoids without mention of complication Hemorrhoids - Unspecified hypothyroidism Previous Surgical History PAST SURGICAL HISTORY Procedure Laterality Date - CABG, ARTERIAL, THREE 07/29/09 - cardiac pacemaker 07/29/09 - COLONOSCOP W/ OR W/O [facility] SPEC 06/05/10 - COLONOSCOP W/ OR W/O [facility] SPEC Colonoscopy - EGD W/O OR W/BRUSH/WASH 05/09/2015 EGD - HEART SURGERY HX - MASTECTOMY 06/19/99 mrm left breast - PERC TRANSL COR ANGIO 03/23/07 Percutaneous Transluminal Coronary Angio Status - TOTAL ABDOM HYSTERECTOMY 2003 BRENDA,BSO Family History FAMILY HISTORY Problem Relation Age of Onset - Cancer Mother ovarian - Heart Father - Breast Cancer Sister metastatic to bone Social History Social History Marital status: Spouse name: Years of education: Number of children: Social History Main Topics Smoking status: Never Smoker Smokeless tobacco: Never Used Alcohol use: No Drug use: No EXAM: BP 130/70 (BP Site: Left Arm, BP Position: Sitting, BP Cuff Size: Regular Adult) Pulse 60 Temp 36.1 ?C (97 ?F) (Tympanic) Resp 16 Wt 55.8 kg (123 lb) BMI 24.02 kg/m? General Appearance: Well appearing, alert, in no acute distress, well-hydrated, well nourished., Antalgic gait due to OA both knees. Neck: Supple, no adenopathy; thyroid symmetric, normal size, no bruits. Lungs: Lungs clear to auscultation. No wheezing, rhonchi, rales. Heart: RRR without murmur, gallop, or rubs. No ectopy. ASSESSMENT/PLAN: 1. Chronic insomnia - ICD9: 780.52, ICD10: F51.04 OARRS website checked and validated. All prescriptions have been APPROPRIATELY filled. No suspicious activity was identified.- 01/24/2018 by Vernon Harding, MSN [employer] - Rx refilled. - LORAZEPAM 1 MG TABLET Vernon Harding, MSN [employer]ATION PROGRESS Observed: 12/21/2017 Status: COMPLETED Source: MAXIE 11:[address] [facility] REPOSITORY HNO ID: [id number] Author: Zachary Neal V Service: (none) Author Type: Physician Type: Progress Notes Filed: 12/21/2017 1:53 PM Note Text: Patient presents with: Established Patient: Euflexxa injection # 3 to bilateral knees Lot # [id number] Exp: 08/14/2018 Diagnosis:Bilateral knees osteoarthritis History: Li returns for third Euflexxa injection into the bilateral knees. Overall doing very well, with significant improvement of left knee. Still having pain Below the joint line on right knee, in area of pes anserine bursa. Physical Examination: Skin: Intact to inspection and palpation. Musculoskeletal Exam: Bilateral Knee Exam:No effusion, redness or warmth Impression: Bilateral knees osteoarthritis. Procedure: Euflexxa injection into bilateral knee. After obtaining informed consent, I prepped the bilateral knee in the usual manner. A lateral approach was used to introduce 2ml of Euflexxa into eash the knee joint. There was no bleeding encountered. Patient tolerated the procedure well, and was given verbal and written post injection instructions. I answered all the patient's questions to her satisfaction prior to leaving the office today. Patient was instructed to contact me immediately if there is any fever chills, effusion, erythema, hematoma, decrease ROM in the knee joint, motor weakness, or any sensory changes. Zachary Neal DO PROGRESS Observed: 12/21/2017 Status: COMPLETED Source: [place] 11:[address] [facility] REPOSITORY HNO ID: [id number] Author: Jocelyn Adan Ma Service: (none) Author Type: (none) Type: Progress Notes Filed: 12/21/2017 1:53 PM Note Text: AMB ROOMING INTAKE FLOWSHEET DATA Risk Screening Do you have concerns about personal safety or safety in the home?: No Pain Pain Score: 5/10 Pain Location: Other: See Comment (bilateral knees) Description: Sharp Duration Amount of Time: (ongoing) Frequency: Continuous Intervention: Other: See comment (none) Patient here today for Euflexxa injection # 3 to bilateral knees. See chief complaint for lot # and exp date. CNOV Observed: 12/21/2017 Status: COMPLETED Source: [place] 11:[address] [facility] REPOSITORY Office Visit (UC) LI GRIFFITH ([id number]) 1935 F NFR Date Time Provider Department 12/21/17 11:00 AM ZACHARY NEAL During your visit today, we recorded the following information about you: Jocelyn Adan Ma 12/21/2017 1:53 PM Signed AMB ROOMING INTAKE FLOWSHEET DATA Risk Screening Do you have concerns about personal safety or safety in the home?: No Pain Pain Score: 5/10 Pain Location: Other: See Comment (bilateral knees) Description: Sharp Duration Amount of Time: (ongoing) Frequency: Continuous Intervention: Other: See comment (none) Patient here today for Euflexxa injection # 3 to bilateral knees. See chief complaint for lot # and exp date. Zachary Neal DO 12/21/2017 1:53 PM Signed Patient presents with: Established Patient: Euflexxa injection # 3 to bilateral knees Lot # [id number] Exp: 08/14/2018 Diagnosis:Bilateral knees osteoarthritis History: Li returns for third Euflexxa injection into the bilateral knees. Overall doing very well, with significant improvement of left knee. Still having pain Below the joint line on right knee, in area of pes anserine bursa. Physical Examination: Skin: Intact to inspection and palpation. Musculoskeletal Exam: Bilateral Knee Exam:No effusion, redness or warmth Impression: Bilateral knees osteoarthritis. Procedure: Euflexxa injection into bilateral knee. After obtaining informed consent, I prepped the bilateral knee in the usual manner. A lateral approach was used to introduce 2ml of Euflexxa into eash the knee joint. There was no bleeding encountered. Patient tolerated the procedure well, and was given verbal and written post injection instructions. I answered all the patient's questions to her satisfaction prior to leaving the office today. Patient was instructed to contact me immediately if there is any fever chills, effusion, erythema, hematoma, decrease ROM in the knee joint, motor weakness, or any sensory changes. Zachary Neal DO Referring Provider: ZACHARY NEAL V [[id number]] Allergies As of Date: 12/21/2017 Noted Allergy Reaction ACCUPRIL (QUINAPRIL HCL) 04/14/2005 2 - Rash ARTHROTEC 50 (DICLOFENAC-MISOPROS*04/14/2005 8 - GI Upset FOSAMAX (ALENDRONATE SODIUM) 01/31/2007 5 - Intolerance Comments: MUSCLE WEAKNESS LIPITOR (ATORVASTATIN CALCIUM) 06/29/2012 14 - Other: See Comments Comments: Muscle achiness MACRODANTIN (NITROFURANTOIN) 04/14/2005 2 - Rash PERCOCET (OXYCODONE-ACETAMINOPHEN)04/14/2005 5 - Intolerance Comments: off balance, elevated blood pressure NCZVNYZ-IEC-NPN REDUCTASE INHIBIT*08/30/2015 17 - Myalgia Date Reviewed: 12/21/2017 Reviewed by: Jocelyn Adan Ma - Fully Assessed Reason for Visit: Established Patient [175] Cmt: Euflexxa injection # 3 to bilateral knees Lot # [id number] Exp: 08/14/2018 Primary Visit Diagnosis:Primary osteoarthritis of both knees [M17.0] Order(s):sodium hyaluronate 20 mg injection (EUFLEXXA)Disp: Rfl: sodium hyaluronate 20 mg injection (EUFLEXXA)Disp: Rfl: Prescriptions as of 12/21/2017 Sig: MELOXICAM 15 MG TABLET Take 1 tablet by mouth once d* [id number]-[id number]* Take 1 tablet by mouth every * LORAZEPAM 1 MG TABLET Take one(1) tablet at bedtime* LEVOTHYROXINE 100 MCG TABLET TAKE 1 TABLET BY MOUTH ONE TI* DIGOX 125 MCG TABLET TAKE 1 TABLET BY MOUTH ONE TI* CLOPIDOGREL 75 MG TABLET TAKE 1 TABLET BY MOUTH EVERY * SPIRONOLACTONE 25 MG TABLET Take 1 tablet by mouth once d* LOSARTAN 100 MG TABLET TAKE 1 TABLET BY MOUTH ONE TI* CARVEDILOL 25 MG TABLET TAKE 1 TABLET BY MOUTH TWICE * FUROSEMIDE 20 MG TABLET TAKE 1 TABLET BY MOUTH ONE TI* NITROGLYCERIN 0.4 MG SUBLINGU* Dissolve 1 tablet under the t* OTC PRODUCT Vitamin D 1000 mg daily. 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] INVALID FOR* Postsurgical Aortocoronary Bypass Status [Z95.1]INVALID FOR* CHF (congestive heart failure) [I50.9] INVALID FOR* Lumbar degenerative disc disease [M51.36] INVALID FOR* Cardiomyopathy (HCC) [I42.9] INVALID FOR* History of breast cancer in female [Z85.3] INVALID FOR* Hyperlipidemia LDL goal <100 [E78.5] INVALID FOR* Statin intolerance [Z78.9] INVALID FOR* History of coronary artery stent placement [Z95*INVALID FOR* Chronic kidney disease (CKD), stage III (modera*INVALID FOR* Chronic anticoagulation [Z79.01] INVALID FOR* Temporal arteritis (HCC) [M31.6] INVALID FOR* Hypercalcemia [E83.52] INVALID FOR* Prominent vein [I87.8] INVALID FOR* Vascular headache [G44.1] INVALID FOR* Hyperparathyroidism (HCC) [E21.3] INVALID FOR* Claudication (HCC) [I73.9] INVALID FOR* Prescriptions ordered this encounter Disp Refills Start End SODIUM HYALURONATE 10 MG/ML(MW 2.4-3* 12/21/2017 12/22/2017 Route: IAtc SODIUM HYALURONATE 10 MG/ML(MW 2.4-3* 12/21/2017 12/22/2017 Route: IAtc Encounter Status:Closed by ZACHARY NEAL DO, V on 12/21/17 CNPN Observed: 12/15/2017 Status: COMPLETED Source: [place] 12:[address] [facility] REPOSITORY Telephone (FAMPWS) LI GRIFFITH ([id number]) 1935 F NFR Date Time Provider Department 12/15/17 ZACHARY NEAL V APXPWS During your visit today, we recorded the following information about you: Harrison Andrade PSR 12/15/2017 9:15 AM Signed Pt called in and asked if Dr. Neal was going to call in Meloxicam to her local pharmacy, [facility] in [place]. She said she saw him on 12/10/17 and they discussed this medicine. She was NOT 100% sure it was Meloxicam, actually stated ANDquot;I know it began with a MANDquot;. I said, ANDquot;Was it Meloxicam?ANDquot; and she said ANDquot;YesANDquot;. I did not see anything in her chart that reflects this, hence why I did not do a refill request. Patient [facility]. Thanks in advance! Harrison Andrade PSR Jocelyn Adan Ma 12/15/2017 1:53 PM Signed Zachary Neal V ?[place] (Rn) SHERRILL Pruett 2 hours ago (11:30 AM) ? ? ? rx for meloxicam e-scripted to pharmacy Zachary Neal DO (Routing comment) Patient has been notified and verbalized understanding. Allergies As of Date: 12/15/2017 Noted Allergy Reaction ACCUPRIL (QUINAPRIL HCL) 04/14/2005 2 - Rash ARTHROTEC 50 (DICLOFENAC-MISOPROS*04/14/2005 8 - GI Upset FOSAMAX (ALENDRONATE SODIUM) 01/31/2007 5 - Intolerance Comments: MUSCLE WEAKNESS LIPITOR (ATORVASTATIN CALCIUM) 06/29/2012 14 - Other: See Comments Comments: Muscle achiness MACRODANTIN (NITROFURANTOIN) 04/14/2005 2 - Rash PERCOCET (OXYCODONE-ACETAMINOPHEN)04/14/2005 5 - Intolerance Comments: off balance, elevated blood pressure [id number]-[id number] REDUCTASE INHIBIT*08/30/2015 17 - Myalgia Date Reviewed: 12/10/2017 Reviewed by: Jocelyn Adan Ma - Fully Assessed Reason for Visit: Medication Question [1478] Primary Visit Diagnosis:Primary osteoarthritis of knees, bilateral [M17.0] Order(s):meloxicam (MOBIC) 15 mg tabletTake 1 tablet by mouth once daily. With food.Disp: 30 tabletRfl: 0 Prescriptions as of 12/15/2017 Sig: MELOXICAM 15 MG TABLET Take 1 tablet by mouth once d* [id number]-[id number]* Take 1 tablet by mouth every * LORAZEPAM 1 MG TABLET Take one(1) tablet at bedtime* LEVOTHYROXINE 100 MCG TABLET TAKE 1 TABLET BY MOUTH ONE TI* DIGOX 125 MCG TABLET TAKE 1 TABLET BY MOUTH ONE TI* CLOPIDOGREL 75 MG TABLET TAKE 1 TABLET BY MOUTH EVERY * SPIRONOLACTONE 25 MG TABLET Take 1 tablet by mouth once d* LOSARTAN 100 MG TABLET TAKE 1 TABLET BY MOUTH ONE TI* HYDROXYZINE PAMOATE 25 MG CAP* Take 1 capsule by mouth three* CARVEDILOL 25 MG TABLET TAKE 1 TABLET BY MOUTH TWICE * FUROSEMIDE 20 MG TABLET TAKE 1 TABLET BY MOUTH ONE TI* RIVAROXABAN 15 MG TABLET Take 1 tablet by mouth daily * CLOTRIMAZOLE-BETAMETHASONE 1 * Apply 1 application to affect* NITROGLYCERIN 0.4 MG SUBLINGU* Dissolve 1 tablet under the t* OTC PRODUCT Vitamin D 1000 mg daily. 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.1]INVALID FOR* CHF (congestive heart failure) [I50.9] INVALID FOR* Lumbar degenerative disc disease [M51.36] INVALID FOR* Cardiomyopathy (HCC) [I42.9] INVALID FOR* History of breast cancer in female [Z85.3] INVALID FOR* Hyperlipidemia LDL goal <100 [E78.5] INVALID FOR* Statin intolerance [Z78.9] INVALID FOR* History of coronary artery stent placement [Z95*INVALID FOR* Chronic kidney disease (CKD), stage III (modera*INVALID FOR* Chronic anticoagulation [Z79.01] INVALID FOR* Temporal arteritis (HCC) [M31.6] INVALID FOR* Hypercalcemia [E83.52] INVALID FOR* Prominent vein [I87.8] INVALID FOR* Vascular headache [G44.1] INVALID FOR* Hyperparathyroidism (HCC) [E21.3] INVALID FOR* Claudication (HCC) [I73.9] INVALID FOR* Prescriptions ordered this encounter Disp Refills Start End MELOXICAM 15 MG TABLET 30 t* 0 12/15/2017 Route: ORAL Sig: Take 1 tablet by mouth once daily. With food. Encounter Status:Closed by JOCELYN ADAN MA on 12/15/17 PROGRESS Observed: 12/10/2017 Status: COMPLETED Source: MAX[place] 11:[address] [facility] REPOSITORY HNO ID: [id number] Author: Zachary Neal V Service: (none) Author Type: Physician Type: Progress Notes Filed: 12/10/2017 12:36 PM Note Text: Patient presents with: Established Patient: Euflexxa injection # 2 to bilateral knees Lot # [id number] Exp: 08/14/2018 Diagnosis:Bilateral knees osteoarthritis History: Li returns for second Euflexxa injection into the bilateral knees. Past medical history, family history, social history, and review of systems are unchanged from initial visit dated 06/02/17 and reviewed by me today. Physical Examination: Skin: Intact to inspection and palpation. Musculoskeletal Exam: Bilateral Knee Exam:No effusion, redness or warmth Impression: Bilateral knees osteoarthritis. Procedure: Euflexxa injection into bilateral knee. After obtaining informed consent, I prepped the bilateral knee in the usual manner. A lateral approach was used to introduce 2ml of Euflexxa into eash the knee joint. There was no bleeding encountered. Patient tolerated the procedure well, and was given verbal and written post injection instructions. I answered all the patient's questions to her satisfaction prior to leaving the office today. Patient was instructed to contact me immediately if there is any fever chills, effusion, erythema, hematoma, decrease ROM in the knee joint, motor weakness, or any sensory changes. Zachary eNal DO CNOV Observed: 12/10/2017 Status: COMPLETED Source: [place] 11:[address] [facility] REPOSITORY Office Visit (UC) LI GRIFFITH ([id number]) 1935 F NFR Date Time Provider Department 12/10/17 11:00 AM ZACHARY NEAL During your visit today, we recorded the following information about you: Jocelyn Adan Ma 12/10/2017 12:36 PM Signed AMB ROOMING INTAKE FLOWSHEET DATA Risk Screening Do you have concerns about personal safety or safety in the home?: No Pain Pain Score: 7/10 Pain Location: Other: See Comment (bilateral knees) Description: Aching, Sharp Duration Amount of Time: (ongoing) Frequency: Continuous Intervention: Medication Euflexxa injection # 2 to bilateral knees. See chief complaint for lot # and exp date. Zachary Neal DO 12/10/2017 12:36 PM Signed Patient presents with: Established Patient: Euflexxa injection # 2 to bilateral knees Lot # [id number] Exp: 08/14/2018 Diagnosis:Bilateral knees osteoarthritis History: Li returns for second Euflexxa injection into the bilateral knees. Past medical history, family history, social history, and review of systems are unchanged from initial visit dated 06/02/17 and reviewed by me today. Physical Examination: Skin: Intact to inspection and palpation. Musculoskeletal Exam: Bilateral Knee Exam:No effusion, redness or warmth Impression: Bilateral knees osteoarthritis. Procedure: Euflexxa injection into bilateral knee. After obtaining informed consent, I prepped the bilateral knee in the usual manner. A lateral approach was used to introduce 2ml of Euflexxa into eash the knee joint. There was no bleeding encountered. Patient tolerated the procedure well, and was given verbal and written post injection instructions. I answered all the patient's questions to her satisfaction prior to leaving the office today. Patient was instructed to contact me immediately if there is any fever chills, effusion, erythema, hematoma, decrease ROM in the knee joint, motor weakness, or any sensory changes. Zachary Neal DO Referring Provider: ZACHARY NEAL V [[id number]] Allergies As of Date: 12/10/2017 Noted Allergy Reaction ACCUPRIL (QUINAPRIL HCL) 04/14/2005 2 - Rash ARTHROTEC 50 (DICLOFENAC-MISOPROS*04/14/2005 8 - GI Upset FOSAMAX (ALENDRONATE SODIUM) 01/31/2007 5 - Intolerance Comments: MUSCLE WEAKNESS LIPITOR (ATORVASTATIN CALCIUM) 06/29/2012 14 - Other: See Comments Comments: Muscle achiness MACRODANTIN (NITROFURANTOIN) 04/14/2005 2 - Rash PERCOCET (OXYCODONE-ACETAMINOPHEN)04/14/2005 5 - Intolerance Comments: off balance, elevated blood pressure [id number]-VUC REDUCTASE INHIBIT*08/30/2015 17 - Myalgia Date Reviewed: 12/10/2017 Reviewed by: Jocelyn Adan Ma - Fully Assessed Reason for Visit: Established Patient [175] Cmt: Euflexxa injection # 2 to bilateral knees Lot # [id number] Exp: 08/14/2018 Primary Visit Diagnosis:Primary osteoarthritis of both knees [M17.0] Prescriptions as of 12/10/2017 Sig: [id number]* Take 1 tablet by mouth every * LORAZEPAM 1 MG TABLET Take one(1) tablet at bedtime* LEVOTHYROXINE 100 MCG TABLET TAKE 1 TABLET BY MOUTH ONE TI* DIGOX 125 MCG TABLET TAKE 1 TABLET BY MOUTH ONE TI* CLOPIDOGREL 75 MG TABLET TAKE 1 TABLET BY MOUTH EVERY * SPIRONOLACTONE 25 MG TABLET Take 1 tablet by mouth once d* LOSARTAN 100 MG TABLET TAKE 1 TABLET BY MOUTH ONE TI* CARVEDILOL 25 MG TABLET TAKE 1 TABLET BY MOUTH TWICE * FUROSEMIDE 20 MG TABLET TAKE 1 TABLET BY MOUTH ONE TI* NITROGLYCERIN 0.4 MG SUBLINGU* Dissolve 1 tablet under the t* OTC PRODUCT Vitamin D 1000 mg daily. 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] INVALID FOR* Postsurgical Aortocoronary Bypass Status [Z95.1]INVALID FOR* CHF (congestive heart failure) [I50.9] INVALID FOR* Lumbar degenerative disc disease [M51.36] INVALID FOR* Cardiomyopathy (HCC) [I42.9] INVALID FOR* History of breast cancer in female [Z85.3] INVALID FOR* Hyperlipidemia LDL goal <100 [E78.5] INVALID FOR* Statin intolerance [Z78.9] INVALID FOR* History of coronary artery stent placement [Z95*INVALID FOR* Chronic kidney disease (CKD), stage III (modera*INVALID FOR* Chronic anticoagulation [Z79.01] INVALID FOR* Temporal arteritis (HCC) [M31.6] INVALID FOR* Hypercalcemia [E83.52] INVALID FOR* Prominent vein [I87.8] INVALID FOR* Vascular headache [G44.1] INVALID FOR* Hyperparathyroidism (HCC) [E21.3] INVALID FOR* Claudication (HCC) [I73.9] INVALID FOR* Encounter Status:Closed by ZACHARY NEAL DO, V on 12/10/17 PROGRESS Observed: 12/10/2017 Status: COMPLETED Source: [place] 10:[address] [facility] REPOSITORY HNO ID: [id number] Author: Jocelyn Adan Ma Service: (none) Author Type: (none) Type: Progress Notes Filed: 12/10/2017 12:36 PM Note Text: AMB ROOMING INTAKE FLOWSHEET DATA Risk Screening Do you have concerns about personal safety or safety in the home?: No Pain Pain Score: 7/10 Pain Location: Other: See Comment (bilateral knees) Description: Aching, Sharp Duration Amount of Time: (ongoing) Frequency: Continuous Intervention: Medication Euflexxa injection # 2 to bilateral knees. See chief complaint for lot # and exp date. PROGRESS Observed: 12/03/2017 Status: COMPLETED Source: [place] 11:[address] [facility] REPOSITORY HNO ID: [id number] Author: Jessica Holman RN Service: (none) Author Type: (none) Type: Progress Notes Filed: 12/03/2017 11:38 AM Note Text: Attempted to fit pt. with Don-Marla right medial unloading brace, but she needs medium and only small available. Pt. chooses to wait until medium brace available rather than obtaining from [facility]. will notify her when arrives. PROGRESS Observed: 12/03/2017 Status: COMPLETED Source: [place] 11:[address] [facility] REPOSITORY HNO ID: [id number] Author: Zachary Neal V Service: (none) Author Type: Physician Type: Progress Notes Filed: 12/03/2017 11:28 AM Note Text: Patient presents with: Recheck: 6 months post last OV for third Euflexxa injecitons bilateral knees (06-02-17), Wants to begin series again Diagnosis:Bilateral knees osteoarthritis History: Li returns for first Euflexxa injection into the bilateral knee. Past medical history, family history, social history, and review of systems are unchanged from initial visit dated 06/02/17 and reviewed by me today. Physical Examination: Skin: Intact to inspection and palpation. Musculoskeletal Exam: Bilateral Knee Exam:No effusion, redness or warmth Impression: Bilateral knees osteoarthritis. Procedure: Euflexxa injection into bilateral knee. After obtaining informed consent, I prepped the bilateral knee in the usual manner. A lateral approach was used to introduce 2ml of Euflexxa into the knee joint. There was no bleeding encountered. Patient tolerated the procedure well, and was given verbal and written post injection instructions. I answered all the patient's questions to her satisfaction prior to leaving the office today. Patient was instructed to contact me immediately if there is any fever chills, effusion, erythema, hematoma, decrease ROM in the knee joint, motor weakness, or any sensory changes. Zachary Neal DO PROGRESS Observed: 12/03/2017 Status: COMPLETED Source: [place] 11:[address] [facility] REPOSITORY HNO ID: [id number] Author: Jessica Holman RN Service: (none) Author Type: (none) Type: Progress Notes Filed: 12/03/2017 11:28 AM Note Text: AMB ROOMING INTAKE FLOWSHEET DATA Risk Screening Do you have concerns about personal safety or safety in the home?: No Pain Pain Score: (right knee 10 and left knee 5) Pain Location: (bilateral knees) Description: Stabbing, Sharp (right knee sharp and shooting and left knee aching) Duration Amount of Time: 2 (ongoing) Duration Units: Months Frequency: Continuous Intervention: Medication Patient presents with: Recheck: 6 months post last OV for third Euflexxa injecitons bilateral knees (17), Wants to begin series again Pt. presents with daughter. She states her knees became very painful 1-2 months ago. She states right is worse than left, and left only hurts with WB. She also mentions mis-stepping and feeling a pop in her right knee, but uncertain when this happened. She states her right knee flips on her or goes out of joint. She has not tried bracing. She would like mor Euflexxa today. CNOV Observed: 12/03/2017 Status: COMPLETED Source: [place] 11:[address] [facility] REPOSITORY Office Visit (UC) LI GRIFFITH ([id number]) 1935 F NFR Date Time Provider Department 12/03/17 11:00 AM ZACHARY NEAL During your visit today, we recorded the following information about you: Jessica Holman RN 12/03/2017 11:28 AM Signed AMB ROOMING INTAKE FLOWSHEET DATA Risk Screening Do you have concerns about personal safety or safety in the home?: No Pain Pain Score: (right knee 10 and left knee 5) Pain Location: (bilateral knees) Description: Stabbing, Sharp (right knee sharp and shooting and left knee aching) Duration Amount of Time: 2 (ongoing) Duration Units: Months Frequency: Continuous Intervention: Medication Patient presents with: Recheck: 6 months post last OV for third Euflexxa injecitons bilateral knees (06-02-17), Wants to begin series again Pt. presents with daughter. She states her knees became very painful 1-2 months ago. She states right is worse than left, and left only hurts with WB. She also mentions mis-stepping and feeling a pop in her right knee, but uncertain when this happened. She states her right knee ANDquot;flipsANDquot; on her or ANDquot;goes out of joint.ANDquot; She has not tried bracing. She would like mor Euflexxa today. Zachary Neal DO 12/03/2017 11:28 AM Signed Patient presents with: Recheck: 6 months post last OV for third Euflexxa injecitons bilateral knees (06-02-17), Wants to begin series again Diagnosis:Bilateral knees osteoarthritis History: Li returns for first Euflexxa injection into the bilateral knee. Past medical history, family history, social history, and review of systems are unchanged from initial visit dated 06/02/17 and reviewed by me today. Physical Examination: Skin: Intact to inspection and palpation. Musculoskeletal Exam: Bilateral Knee Exam:No effusion, redness or warmth Impression: Bilateral knees osteoarthritis. Procedure: Euflexxa injection into bilateral knee. After obtaining informed consent, I prepped the bilateral knee in the usual manner. A lateral approach was used to introduce 2ml of Euflexxa into the knee joint. There was no bleeding encountered. Patient tolerated the procedure well, and was given verbal and written post injection instructions. I answered all the patient's questions to her satisfaction prior to leaving the office today. Patient was instructed to contact me immediately if there is any fever chills, effusion, erythema, hematoma, decrease ROM in the knee joint, motor weakness, or any sensory changes. DO Jessica Rothman RN 12/03/2017 11:38 AM Signed Attempted to fit pt. with Don-Marla right medial unloading brace, but she needs medium and only small available. Pt. chooses to wait until medium brace available rather than obtaining from [facility]. will notify her when arrives. Referring Provider: ZACHARY NEAL V [[id number]] Allergies As of Date: 12/03/2017 Noted Allergy Reaction ACCUPRIL (QUINAPRIL HCL) 04/14/2005 2 - Rash ARTHROTEC 50 (DICLOFENAC-MISOPROS*04/14/2005 8 - GI Upset FOSAMAX (ALENDRONATE SODIUM) 01/31/2007 5 - Intolerance Comments: MUSCLE WEAKNESS LIPITOR (ATORVASTATIN CALCIUM) 06/29/2012 14 - Other: See Comments Comments: Muscle achiness MACRODANTIN (NITROFURANTOIN) 04/14/2005 2 - Rash PERCOCET (OXYCODONE-ACETAMINOPHEN)04/14/2005 5 - Intolerance Comments: off balance, elevated blood pressure MFCRFON-LDH-MIY REDUCTASE INHIBIT*08/30/2015 17 - Myalgia Date Reviewed: 12/03/2017 Reviewed by: Jessica Holman RN - Fully Assessed Reason for Visit: Recheck [92] Cmt: 6 months post last OV for third Euflexxa injecitons bilateral knees (10-17), Wants to begin series again Primary Visit Diagnosis:Primary osteoarthritis of both knees [M17.0] Prescriptions as of 12/03/2017 Sig: [id number]-[id number]* Take 1 tablet by mouth every * LORAZEPAM 1 MG TABLET Take one(1) tablet at bedtime* LEVOTHYROXINE 100 MCG TABLET TAKE 1 TABLET BY MOUTH ONE TI* DIGOX 125 MCG TABLET TAKE 1 TABLET BY MOUTH ONE TI* CLOPIDOGREL 75 MG TABLET TAKE 1 TABLET BY MOUTH EVERY * SPIRONOLACTONE 25 MG TABLET Take 1 tablet by mouth once d* LOSARTAN 100 MG TABLET TAKE 1 TABLET BY MOUTH ONE TI* CARVEDILOL 25 MG TABLET TAKE 1 TABLET BY MOUTH TWICE * FUROSEMIDE 20 MG TABLET TAKE 1 TABLET BY MOUTH ONE TI* NITROGLYCERIN 0.4 MG SUBLINGU* Dissolve 1 tablet under the t* OTC PRODUCT Vitamin D 1000 mg daily. HYDROXYZINE PAMOATE 25 MG CAP* Take 1 capsule by mouth three* RIVAROXABAN 15 MG TABLET Take 1 tablet by mouth daily * CLOTRIMAZOLE-BETAMETHASONE 1 * Apply 1 application to affect* Medication notes this encounter HYDROXYZINE PAMOATE 25 MG CAPSULE >> Jessica Holman RN 12/03/2017 11:03 AM >> JESSICA HOLMAN RN WedDec 03, 2017 11:03 AM No longer using RIVAROXABAN 15 MG TABLET >> Jessica Holman RN 12/03/2017 11:04 AM >> JESSICA HOLMAN RN WedDec 03, 2017 11:04 AM No longer taking CLOTRIMAZOLE-BETAMETHASONE 1 %-0.05 % TOPICAL CREAM >> Jessica Holman RN 12/03/2017 11:03 AM >> JESSICA HOLMAN RN WedDec 03, 2017 11:03 AM No longer using Problem List As Of Date 12/03/2017 Noted Resolved BENIGN HYPERTENSION [I10] INVALID FOR* Acquired hypothyroidism [E03.9] INVALID FOR* OSTEOPOROSIS NOS [M81.0] INVALID FOR* Pure hypercholesterolemia [E78.00] INVALID FOR* MALIGN NEOPL BREAST NOS [C50.919] INVALID FOR* Coronary atherosclerosis [I25.10] INVALID FOR* VITAMIN D DEFICIENCY NOS [E55.9] INVALID FOR* 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] INVALID FOR* Postsurgical Aortocoronary Bypass Status [Z95.1]INVALID FOR* CHF (congestive heart failure) [I50.9] INVALID FOR* Lumbar degenerative disc disease [M51.36] INVALID FOR* Cardiomyopathy (HCC) [I42.9] INVALID FOR* History of breast cancer in female [Z85.3] INVALID FOR* Hyperlipidemia LDL goal <100 [E78.5] INVALID FOR* Statin intolerance [Z78.9] INVALID FOR* History of coronary artery stent placement [Z95*INVALID FOR* Chronic kidney disease (CKD), stage III (modera*INVALID FOR* Chronic anticoagulation [Z79.01] INVALID FOR* Temporal arteritis (HCC) [M31.6] INVALID FOR* Hypercalcemia [E83.52] INVALID FOR* Prominent vein [I87.8] INVALID FOR* Vascular headache [G44.1] INVALID FOR* Hyperparathyroidism (HCC) [E21.3] INVALID FOR* Claudication (HCC) [I73.9] INVALID FOR* Encounter Status:Closed by ZACHARY NEAL DO, V on 12/03/17 OBSOLETE Observed: 09/21/2017 Status: COMPLETED Source: [place] 12:[address] [facility] REPOSITORY Refill (FAMPWS) LI GRIFFITH ([id number]) 1935 F NFR Date Time Provider Department 09/21/17 MARIAA FULLER IIIWS During your visit today, we recorded the following information about you: Lindsay Sánchez Psr 09/21/2017 11:15 AM Signed Patient has been identified by name and date of : Yes Pending Prescriptions Disp Refills LEVOTHYROXINE 100 MCG TABLET 90 tablet 3 GABINO: No RX INSTRUCTIONS: Patient aware RX will be sent to pharmacy. No need to notify patient. Lindsay Sánchez Psr SHILPA Soares SVP MONETIZATION 09/21/2017 6:21 PM Signed The following approved medication requests have been transmitted electronically. Signed Prescriptions Disp Refills levothyroxine (SYNTHROID) 100 mcg tablet 90 tablet 3 Sig: TAKE 1 TABLET BY MOUTH ONE TIME DAILY ON AN EMPTY STOMACH GABINO: No Authorizing Provider: MARIAA FULLER III Ordering User: VERNON HARDING CNP, MSN SVP MONETIZATION Allergies As of Date: 09/21/2017 Noted Allergy Reaction ACCUPRIL (QUINAPRIL HCL) 04/14/2005 2 - Rash ARTHROTEC 50 (DICLOFENAC-MISOPROS*04/14/2005 8 - GI Upset FOSAMAX (ALENDRONATE SODIUM) 01/31/2007 5 - Intolerance Comments: MUSCLE WEAKNESS LIPITOR (ATORVASTATIN CALCIUM) 06/29/2012 14 - Other: See Comments Comments: Muscle achiness MACRODANTIN (NITROFURANTOIN) 04/14/2005 2 - Rash PERCOCET (OXYCODONE-ACETAMINOPHEN)04/14/2005 5 - Intolerance Comments: off balance, elevated blood pressure [id number] REDUCTASE INHIBIT*08/30/2015 17 - Myalgia Date Reviewed: 07/13/2017 Reviewed by: Cristina Whitmyer RN - Fully Assessed Reason for Visit: Refill Request [94] Primary Visit Diagnosis:Acquired hypothyroidism [E03.9] Order(s):levothyroxine (SYNTHROID) 100 mcg tabletTAKE 1 TABLET BY MOUTH ONE TIME DAILY ON AN EMPTY STOMACHDisp: 90 tabletRfl: 3 Prescriptions as of 09/21/2017 Sig: LEVOTHYROXINE 100 MCG TABLET TAKE 1 TABLET BY MOUTH ONE TI* DIGOX 125 MCG TABLET TAKE 1 TABLET BY MOUTH ONE TI* CLOPIDOGREL 75 MG TABLET TAKE 1 TABLET BY MOUTH EVERY * SPIRONOLACTONE 25 MG TABLET Take 1 tablet by mouth once d* LOSARTAN 100 MG TABLET TAKE 1 TABLET BY MOUTH ONE TI* HYDROXYZINE PAMOATE 25 MG CAP* Take 1 capsule by mouth three* CARVEDILOL 25 MG TABLET TAKE 1 TABLET BY MOUTH TWICE * FUROSEMIDE 20 MG TABLET TAKE 1 TABLET BY MOUTH ONE TI* RIVAROXABAN 15 MG TABLET Take 1 tablet by mouth daily * CLOTRIMAZOLE-BETAMETHASONE 1 * Apply 1 application to affect* NITROGLYCERIN 0.4 MG SUBLINGU* Dissolve 1 tablet under the t* OTC PRODUCT Vitamin D 1000 mg daily. 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] INVALID FOR* Postsurgical Aortocoronary Bypass Status [Z95.1]INVALID FOR* CHF (congestive heart failure) [I50.9] INVALID FOR* Lumbar degenerative disc disease [M51.36] INVALID FOR* Cardiomyopathy (HCC) [I42.9] INVALID FOR* History of breast cancer in female [Z85.3] INVALID FOR* Hyperlipidemia LDL goal <100 [E78.5] INVALID FOR* Statin intolerance [Z78.9] INVALID FOR* History of coronary artery stent placement [Z95*INVALID FOR* Chronic kidney disease (CKD), stage III (modera*INVALID FOR* Chronic anticoagulation [Z79.01] INVALID FOR* Temporal arteritis (HCC) [M31.6] INVALID FOR* Hypercalcemia [E83.52] INVALID FOR* Prominent vein [I87.8] INVALID FOR* Vascular headache [G44.1] INVALID FOR* Hyperparathyroidism (HCC) [E21.3] INVALID FOR* Claudication (HCC) [I73.9] INVALID FOR* Prescriptions ordered this encounter Disp Refills Start End LEVOTHYROXINE 100 MCG TABLET 90 t* 3 09/21/2017 Sig: TAKE 1 TABLET BY MOUTH ONE TIME DAILY ON AN EMPTY STOMACH Medications Discontinued During This Encounter levothyroxine (SYNTHROID) 100 mcg ta* 90 t* 3 06/23/2017 09/21/2017 Sig: TAKE 1 TABLET BY MOUTH ONE TIME DAILY ON AN EMPTY STOMACH Disc: Reason for discontinue is not on file. 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 Is patient in pain?: No Allergies acetaminophen [From Percocet] Allergy (Verified 09/07/17 13:14) Other alendronate sodium [From Fosamax] Allergy (Verified 09/07/17 13:14) Other nitrofurantoin [From Macrodantin] Allergy (Verified 09/07/17 13:14) Rash oxycodone [From Percocet] Allergy (Verified 09/07/17 13:14) Other quinapril [From Accupril] Allergy (Verified 09/07/17 13:14) Rash atorvastatin [From Lipitor] Adverse Reaction (Verified 09/07/17 13:14) Pain in joints diclofenac [From Arthrotec 50] Adverse Reaction (Verified 09/07/17 13:14) Upset Stomach misoprostol [From Arthrotec 50] Adverse Reaction (Verified 09/07/17 13:14) Upset Stomach Medications Clopidogrel Bisulfate [Plavix] 75 mg PO DAILY 12/15/16 [History Confirmed 09/07/17] Aspirin 325 mg PO DAILY@0800 07/08/17 [History Confirmed 09/07/17] Cholecalciferol (VIT D3) [Vitamin D3] 1,000 unit PO DAILY 07/08/17 [History Confirmed 09/07/17] Digoxin [Lanoxin] 125 mcg PO DAILY 07/08/17 [History Confirmed 09/07/17] Furosemide [Lasix] 20 mg PO DAILY 07/08/17 [History Confirmed 09/07/17] Levothyroxine [Synthroid] 100 mcg PO DAILY 07/08/17 [History Confirmed 09/07/17] Lorazepam [Ativan] 1 mg PO QHS PRN PRN 07/08/17 [History Confirmed 09/07/17] Losartan Potassium 100 mg PO DAILY 07/08/17 [History Confirmed 09/07/17] Nitroglycerin [Nitrostat] 0.4 mg SL PRN PRN 07/08/17 [History Confirmed 09/07/17] Spironolactone [Aldactone] 25 mg PO DAILY 07/08/17 [History Confirmed 09/07/17] Carvedilol [Coreg (Beta Sonya)] 25 mg PO BID 07/22/17 [History Confirmed 09/07/17] HydrOXYzine DEVAN [Vistaril] 25 mg PO TID PRN PRN 07/22/17 [History Confirmed 09/07/17] Clotrimazole/Betamethasone Dip [Clotrimazole-Betamethasone Crm] 1 applic TP BID PRN PRN 08/04/17 [History Confirmed 09/07/17] Rivaroxaban [Xarelto] 15 mg PO DAILY 08/04/17 [History Confirmed 09/07/17] Azithromycin [Zithromax] 250 mg PO DAILY #2 tab 08/06/17 [Rx Confirmed 09/07/17] Cefdinir 300 mg PO BID #5 cap 08/06/17 [Rx Confirmed 09/07/17] Is last menstrual period known: No Post menopausal: Yes Patient : No PFSH Medical History Hypothyroidism (Acute) PAD (peripheral artery disease) (Acute) HTN (hypertension) (Chronic) Surgical History S/P peripheral artery angioplasty with stent placement (Acute) Social History Smoking Status: Never smoker HPI HPI HPI: LI GRIFFITH, is a 81 F who presents to the office today for surgical follow-up status post endovascular intervention to her left lower extremity that I performed for her on July 23, 2017. The patient had left calf pain with walking to a severe degree. She had left foot pain at rest. She had a small nonhealing sore of the left foot. On July 23, 2017 I performed a left lower extremity arteriogram with left popliteal and left tibioperoneal trunk and left peroneal 2.5 x 1 20 Amna cross angioplasty with addition of a left popliteal 4 x 2 cm Powerflex angioplasty. The patient states that within 3 days after her procedure she had resolution of the tight E toe sore and she had resolution of her foot pain. Now she knows that is not quite right yet. She still has some limitation to ambulation. She still notes that both feet are quite cool. At the [facility] on August 03, 2018 she had PVRs at rest. The right PT and DP ABIs were 0.98 and 0.92 respectively with a digital index of only 0.41. On the left the left PT and DP indices are 0.58 and 0.64 with a digital index of 0.33. Although this is not normal. This is improved from preoperatively. June 2017 her left ABIs were 0.4 and 0.41 respectively with a digital index of only 0.12. It is of note that her intervention was simply with angioplasty and the only patent vessel she has in the infrageniculate position is her left peroneal therefore I would not anticipate normal ABIs Exam Cardio Other: Bilateral femoral pulses are 2-3+. Right popliteals 3+. Left popliteal is 2+. DP and PT pulses are not palpable bilaterally. There is elevation pallor and dependent rubor particularly of the left foot more so than the right. Venous filling however is noted bilaterally. The feet are cool to touch. She has slowed capillary refill. There are no sores or ulcerations Assessment AND Plan 1. Peripheral arterial disease I73.9 Plan I believe that we have achieved what we had hoped for which was the elimination of respiratory and the resolution of her small sore. Clearly the patient has ongoing issues with bilateral lower extremity arterial occlusive disease. The left lower extremity is improved and is stabilized. The patient and her daughter have had an opportunity to ask and have questions answered. I am not anticipating further endovascular intervention at this setting. Further surgical follow-up actually can be as needed. At age 81 every planned intervention certainly has its benefits and risks. Cc: Dr. Mariaa Fuller and Dr. Ara Fuller, MGeorge., F.A.C.S. Coding Level of Care Code Off vis,est,level 2 Diagnoses Peripheral arterial disease I73.9 09/07/17 1337 <Electronically signed by Maury Fuller MD> Date Maury Fuller MD Cosigner Signature: Date (if applicable) CC: BEN Bullock; Mariaa Fuller III, MD LOWER EXT ARTERIAL Observed: 09/03/2017 Status: F Source: [facility] 4:40 PM [facility] REPOSITORY [facility] Cardiovascular Services [address] [place] [id number] 09/03/17 1637 MR#: [id number] Acct: [id number] Name: LI GRIFFITH Rep #: [id number] : 1935 81 From: Maury Fuller MD Attending Dr: Sandy Vincent PA-C Status: REG CLI Ordering Dr: Date: 09/03/17 Location: [facility] Sex: F C Admitted: Arterial Study - Arterial Study Arterial Study: Bilateral lower extremity noninvasive arterial exam at rest Right lower extremity The right low thigh index is 0.88. Calf index is 1.04. Right PT and DP ankle-brachial indices at rest are 0.980.92 respectively with a digital index of 0.41. The right posterior tibial and dorsalis pedis Doppler waveforms are biphasic. Volume pulse recordings do not demonstrate application the calf the ankle waveforms are moderately depressed the digital waveforms mildly depressed. Left lower extremity The left low thigh index is 0.87 left calf index is 0.78 left PT and DP ankle-brachial indices at rest are 0.580.64 respectively with digital indices of only 0.33. The left posterior tibial and dorsalis pedis Doppler waveforms are monophasic. Volume pulse recordings do not demonstrate application the calf ankle waveforms are significantly depressed digital waveforms are mildly depressed. Impression Findings are consistent with bilateral extremity arterial occlusive disease. Suspect aortoiliac inflow disease bilaterally. Additional findings suggest infrageniculate occlusive disease on the right/small vessel disease. Findings would be consistent with claudication. Left lower extremity suggest occlusive disease involving the superficial femoral artery as well as infrageniculate runoff vessels. Distal small vessel disease also suspected. Findings are well within the range of vascular claudication bordering upon digital critical ischemia. Maury Fuller M.D., F.A.C.S. 09/03/17 1640 <Electronically signed by Maury Fuller MD> Date Maury Fuller MD CC: Mariaa Fuller III, MD Date Dictated: 09/03/171636 Date Transcribed: 09/03/171636 Nutrition Specialist: ELISE Signed OBSOLETE Observed: 08/19/2017 Status: COMPLETED Source: [place] 12:[address] [facility] REPOSITORY Refill (DIPESHWS) LI GRIFFITH ([id number]) 1935 F NFR Date Time Provider Department 08/19/17 MARIAA FULLER III During your visit today, we recorded the following information about you: Louise Miller Psr 08/19/2017 10:37 AM Signed Patient has been identified by name and date of : Yes RX INSTRUCTIONS: Patient aware RX will be sent to pharmacy. No need to notify patient. Louise Miller Psr SHILPA Soares SVP MONETIZATION 08/19/2017 1:00 PM Signed Patient's request for medication is as follows: OARRS website checked and validated. All prescriptions have been APPROPRIATELY filled. No suspicious activity was identified.- 08/19/2017 by SHILPA Soares SVP MONETIZATION Signed Prescriptions Disp Refills LORazepam (ATIVAN) 1 mg tablet 30 tablet 0 Sig: Take one(1) tablet at bedtime as needed for anxiety/insomnia TATA Class: C-IV GABINO: No Authorizing Provider: VERNON HARDING (CLERICAL ADMINISTRATIVE ASSISTANT) Prescription(s) as above. Please process accordingly. SHILPA Soares SVP MONETIZATION Carmen Aviles LPN 08/19/2017 2:01 PM Signed The following prescriptions have been called to [facility] pharmacy 08/19/2017 at 2:01 PM by Carmen Aviles LPN. I spoke with Doctor's line in the pharmacy. Signed Prescriptions Disp Refills LORazepam (ATIVAN) 1 mg tablet 30 tablet 0 Sig: Take one(1) tablet at bedtime as needed for anxiety/insomnia TATA Class: C-IV GABINO: No Authorizing Provider: VERNON HARDING (CLERICAL ADMINISTRATIVE ASSISTANT) Allergies As of Date: 08/19/2017 Noted Allergy Reaction ACCUPRIL (QUINAPRIL HCL) 04/14/2005 2 - Rash ARTHROTEC 50 (DICLOFENAC-MISOPROS*04/14/2005 8 - GI Upset FOSAMAX (ALENDRONATE SODIUM) 01/31/2007 5 - Intolerance Comments: MUSCLE WEAKNESS LIPITOR (ATORVASTATIN CALCIUM) 06/29/2012 14 - Other: See Comments Comments: Muscle achiness MACRODANTIN (NITROFURANTOIN) 04/14/2005 2 - Rash PERCOCET (OXYCODONE-ACETAMINOPHEN)04/14/2005 5 - Intolerance Comments: off balance, elevated blood pressure [id number] REDUCTASE INHIBIT*08/30/2015 17 - Myalgia Date Reviewed: 07/13/2017 Reviewed by: Cristina Donaldson RN - Fully Assessed Reason for Visit: Refill Request [94] Reason For Visit History Recorded Visit Diagnosis:Anxiety [F41.9] Order(s):LORazepam (ATIVAN) 1 mg tabletTake one(1) tablet at bedtime as needed for anxiety/insomniaDisp: 30 tabletRfl: 0 Prescriptions as of 08/19/2017 Sig: LORAZEPAM 1 MG TABLET Take one(1) tablet at bedtime* DIGOX 125 MCG TABLET TAKE 1 TABLET BY MOUTH ONE TI* LEVOTHYROXINE 100 MCG TABLET TAKE 1 TABLET BY MOUTH ONE TI* CLOPIDOGREL 75 MG TABLET TAKE 1 TABLET BY MOUTH EVERY * SPIRONOLACTONE 25 MG TABLET Take 1 tablet by mouth once d* LOSARTAN 100 MG TABLET TAKE 1 TABLET BY MOUTH ONE TI* HYDROXYZINE PAMOATE 25 MG CAP* Take 1 capsule by mouth three* CARVEDILOL 25 MG TABLET TAKE 1 TABLET BY MOUTH TWICE * FUROSEMIDE 20 MG TABLET TAKE 1 TABLET BY MOUTH ONE TI* RIVAROXABAN 15 MG TABLET Take 1 tablet by mouth daily * CLOTRIMAZOLE-BETAMETHASONE 1 * Apply 1 application to affect* NITROGLYCERIN 0.4 MG SUBLINGU* Dissolve 1 tablet under the t* OTC PRODUCT Vitamin D 1000 mg daily. 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] INVALID FOR* Postsurgical Aortocoronary Bypass Status [Z95.1]INVALID FOR* CHF (congestive heart failure) [I50.9] INVALID FOR* Lumbar degenerative disc disease [M51.36] INVALID FOR* Cardiomyopathy (HCC) [I42.9] INVALID FOR* History of breast cancer in female [Z85.3] INVALID FOR* Hyperlipidemia LDL goal <100 [E78.5] INVALID FOR* Statin intolerance [Z78.9] INVALID FOR* History of coronary artery stent placement [Z95*INVALID FOR* Chronic kidney disease (CKD), stage III (modera*INVALID FOR* Chronic anticoagulation [Z79.01] INVALID FOR* Temporal arteritis (HCC) [M31.6] INVALID FOR* Hypercalcemia [E83.52] INVALID FOR* Prominent vein [I87.8] INVALID FOR* Vascular headache [G44.1] INVALID FOR* Hyperparathyroidism (HCC) [E21.3] INVALID FOR* Claudication (HCC) [I73.9] INVALID FOR* Prescriptions ordered this encounter Disp Refills Start End LORAZEPAM 1 MG TABLET 30 t* 0 08/19/2017 09/19/2017 Class: Call Rx Sig: Take one(1) tablet at bedtime as needed for anxiety/insomnia Medications Discontinued During This Encounter LORazepam (ATIVAN) 1 mg tablet 30 t* 0 07/27/2017 08/19/2017 Class: Call Rx Sig: Take one(1) tablet at bedtime as needed for anxiety/insomnia Disc: Reason for discontinue is not on file. Encounter Status:Closed by CARMEN AVILES LPN on 08/19/17 ALLERGIES ALLERGIES DATE TYPE / NAME / CODE REACTION SEVERITY SOURCE CODE 08/03/2018 Drug misoprostol/[id number] Upset Stomach Unknown [place] Allergy/41 33(RXNORM) [facility] [id number]([facility]) Repository 08/03/2018 Drug oxycodone/[id number] Other Unknown [place] Allergy/41 (RXNORM) [facility]ly [facility] [id number]([facility]) Repository 08/03/2018 Drug acetaminophen/C00756 Other Unknown [place] Allergy/41 1605(RXNORM) [facility]ly [facility] [id number]([facility]) Repository 08/03/2018 Drug nitrofurantoin/F0060 Rash Unknown [place] Allergy/41 03440(RXNORM) [facility] [id number]([facility]) Repository 08/03/2018 Drug quinapril/[id number] Rash Unknown [place] Allergy/41 (RXNORM) [facility] 2196327([facility]) Repository 08/03/2018 Drug diclofenac/[id number] Upset Stomach Unknown [place] Allergy/41 9(RXNORM) [facility] [id number]([facility]) Repository 08/03/2018 Drug alendronate Other Unknown [place] Allergy/41 sodium/[id number]([facility] 14[facility]) Repository 08/03/2018 Drug atorvastatin/I200125 Pain in joints Unknown [place] Allergy/41 321(RXNORM) [facility] [id number]([facility]) Repository 08/30/2015 Drug [id number]-XAO-LDD Myalgia [place] Class/4195 REDUCTASE INHIBITORS Clinic Main [address]([facility] [place] [facility]) Repository 06/29/2012 DRUG ATORVASTATIN CALCIUM OTHER: SEE C [facility]/41 Clinic Main [id number]([facility] OMED CT) Repository 01/31/2007 DRUG ALENDRONATE SODIUM INTOLERANCE [place] [address] Clinic Main 5684872([facility] OME CT) Repository 04/14/2005 DRUG QUINAPRIL HCL RASH [place] [address] Clinic Main 8544144([facility] OMED CT) Repository 04/14/2005 DRUG/40005 DICLOFENAC-MISOPROST GI UPSET [place] 1003([facility] Main D CT) [place] Repository 04/14/2005 DRUG NITROFURANTOIN RASH [place] [address] Clinic Main 7697001([facility] OMED CT) Repository 04/14/2005 DRUG/49721 OXYCODONE-ACETAMINOP INTOLERANCE [place] 1003([facility] Main D [facility]) [place] Repository ENCOUNTERS ENCOUNTERS ADMIT/DISCHARGE ACCOUNT ADMITTING ENCOUNTER LOCATION SOURCE NUMBER CLASS 08/03/2018 [id number] Agyepong, Inpatient Izzy Swenson Encounter [facility] ing:[id number]: Repository WH266Gkb: 1 08/03/2018 [id number] Agyepong, Ambulatory BMSBuilding:Juany Swenson MS.[facility] Repository 08/03/2018 [id number] Agyepong, Ambulatory BMSBuilding:Juany Swenson MS.[facility] Repository 08/03/2018 [id number] Agyepong, Ambulatory BMSBuilding:Juany Swenson MS.[facility] Repository 08/03/2018 [id number] Agyepong, Ambulatory BMSBuilding:Juany Swenson MS.CF.[facility] Repository 08/03/2018 [id number] Agyepong, Ambulatory BMSBuilding:Juany Swenson MS.[facility] Repository 08/03/2018 [id number] Agyepong, Ambulatory BMSBuilding:Juany Swenson MS.CF.[facility] Repository 08/03/2018 [id number] Agyepong, Ambulatory BMSBuilding:Juany Swenson MS.[facility] Repository 08/03/2018 [id number] Agyepong, Ambulatory BMSBuilding:Juany Swenson MS.CF.[facility] Repository 08/03/2018 [id number] Agyepong, Ambulatory BMSBuilding:Juany Swenson MS.[facility] Repository 08/03/2018 [id number] Agyepong, Ambulatory BMSBuilding:Juany Swenson MS.[facility] Repository 08/02/2018/08/02/20 [id number] Ambulatory [address] Repository 07/20/2018 [id number] Ambulatory [facility] ing:RAD Repository 07/20/2018/07/20/20 [id number] Ambulatory BMSBuilding:Juany Baltazar MS.[facility] Repository 07/06/2018/07/06/20 [id number] Ambulatory [address] Repository 06/01/2018/06/01/20 [id number] Ambulatory [address] Repository 05/26/2018/05/26/20 [id number] Ambulatory [address] [place] Repository 05/12/2018/05/12/20 [id number] Ambulatory [address] [place] Repository 05/12/2018/05/13/20 [id number] Ambulatory [address] Repository 04/05/2018 [id number] Ambulatory UNIBuilding:R [facility] Repository 03/11/2018/03/14/20 [id number] Ambulatory [address] Main [place] Repository 02/10/2018/02/11/20 [id number] Ambulatory [address] [place] Repository 02/10/2018/02/12/20 [id number] Ambulatory [address] Main [place] Repository 01/24/2018/01/25/20 [id number] Ambulatory [address] [place] Repository 12/21/2017/12/22/19 [id number] Ambulatory [address] Repository 12/10/2017/12/14/19 [id number] Ambulatory [address] [place] Repository 12/03/2017/12/07/19 [id number] Ambulatory [address] Repository 09/07/2017/09/07/19 [id number] Ambulatory BMSBuilding:B Izzy 18 [facility] Repository 09/03/2017 [id number] Ambulatory [place] [facility] ing:[facility] Repository 09/03/2017 [id number] Ambulatory BMSBuilding:B Izzy MS.[facility] Repository PAYERS PAYERS ENCOUNTER GUARANTOR PAYER SUBSCRIBER SOURCE 08/03/2018 LI Tarsha [id number] Primary LI [place] Insurance:MEDICARE [place]OLFEDOB: [place] PART A [facility] [id number] [address]Blw: (330) Number: Repository [phone] () [id number] Date:2018-08-03 08/03/2018 Secondary NETTA E [place] Insurance:CIGNAPolic WOLFEDOB: Community y Number: [id number] Hospital [id number] Repository Date:8425-69-55Hb [address]Pfackmvmteh, [place] [address]AA: 08/03/2018 Tertiary NOT GIVENUNK [place] Insurance:SELF PAY [facility] Number: Effective Repository Date:2018-08-03 08/03/2018 LI TERRAZASE8930 Primary LI E [place] Insurance:MEDICARE WOLFEDOB: [place] PART [place] [facility] [id number] [place] [address]Els: (330) Number: Repository [phone] () [id number] Date:2018-08-03 08/03/2018 Secondary NETTA E [place] Insurance:CIGNAPolic WOLFEDOB: Community y Number: [id number] Hospital [id number] Repository Date:0025-22-68[address]Abzvvabhncg, [place] [address]EJ: 08/03/2018 Tertiary NOT GIVENUNK [place] Insurance:SELF PAY [facility] Number: Effective Repository Date:2018-08-03 08/03/2018 LI Tarsha [id number] Primary LI E [place] Insurance:MEDICARE WOLFEDOB: [place] PART [place] [facility] [id number] Hospital [address]Piz: (330) Number: Repository [phone] () [id number] Date:2018-08-03 08/03/2018 Secondary NETTA E [place] Insurance:CIGNAPolic WOLFEDOB: Community y Number: [id number] Hospital [id number] Repository Date:4544-93-93Bw [address]Lxcpaymqsfd, [place] [address]NK: 08/03/2018 Tertiary NOT GIVENUNK [place] Insurance:SELF PAY [facility] Number: Effective Repository Date:2018-08-03 08/03/2018 LI Tarsha [id number] Primary LI E [place] Insurance:MEDICARE WOLFEDOB: [place] PART [place] [facility] [id number] Hospital [address]Nvo: (330) Number: Repository [phone] () [id number] Date:2018-08-03 08/03/2018 Secondary NETTA E [place] Insurance:CIGNAPolic WOLFEDOB: Community y Number: [id number] Hospital [id number] Repository Date:3313-02-91Hl [address] [address]40[address]Bbuhdnpcogq, [place] [address]RI: 08/03/2018 Tertiary NOT GIVENUNK [place] Insurance:SELF PAY [facility] Number: Effective Repository Date:2018-08-03 08/03/2018 LI Tarsha [id number] Primary LI E [place] Insurance:MEDICARE WOLFEDOB: [place] PART [place] [facility] [id number] Hospital [address]Lvt: (330) Number: Repository [phone] () [id number] Date:2018-08-03 08/03/2018 Secondary NETTA E [place] Insurance:CIGNAPolic WOLFEDOB: Community y Number: [id number] Hospital [id number] Repository Date:7061-49-86Dz [address]Tmflzpbahsk, [place] [address]JG: 08/03/2018 Tertiary NOT GIVENUNK [place] Insurance:SELF PAY [facility] Number: Effective Repository Date:2018-08-03 08/03/2018 LI Tarsha [id number] Primary LI E [place] Insurance:MEDICARE WOLFEDOB: Community [place] PART A [facility] [id number] Hospital [address]Oqq: (330) Number: Repository [phone] () [id number] Date:2018-08-03 08/03/2018 Secondary NETTA E [place] Insurance:CIGNAPolic WOLFEDOB: Community y Number: [id number] Hospital [id number] Repository Date:2571-81-97Is [address]13[address]Guwwcebffjh, [place] [address]XA: 08/03/2018 Tertiary NOT GIVENUNK [place] Insurance:SELF PAY [facility] Number: Effective Repository Date:2018-08-03 08/03/2018 LI [id number] Primary LI E [place] Insurance:MEDICARE [place]OB: [place] [facility] [id number] Hospital [address]Oev: (330) Number: Repository [phone] () [id number] Date:2018-08-03 08/03/2018 Secondary NETTA E [place] Insurance:CIGNAPolic WOLFEDOB: Community y Number: [id number] Hospital [id number] Repository Date:9012-40-99Yd [place] [id number], [place] [address]AR: 08/03/2018 Tertiary NOT GIVENUNK [place] Insurance:SELF PAY [facility] Number: Effective Repository Date:2018-08-03 08/03/2018 LI Tarsha [id number] Primary LI E [place] Insurance:MEDICARE [place]OB: [place] [facility] [id number] Hospital [address]Vrc: (330) Number: Repository [phone] () [id number] Date:2018-08-03 08/03/2018 Secondary NETTA E [place] Insurance:CIGNAPolic WOLFEDOB: Community y Number: [id number] Hospital [id number] Repository Date:5532-15-85Ml [address] [address]12[address]BofqwsnfgizENSIGN, [place] [address]VN: 08/03/2018 Tertiary NOT GIVENUNK [place] Insurance:SELF PAY [facility] Number: Effective Repository Date:2018-08-03 08/03/2018 LI [id number] Primary LI E [place] Insurance:MEDICARE [place]FEDOB: [place] [facility] [id number] Hospital [address]Jho: (330) Number: Repository [phone] ) [id number] Date:2018-08-03 08/03/2018 Secondary NETTA E [place] Insurance:CIGNAPolic WOLFEDOB: Community y Number: [id number] Hospital [id number] Repository Date:0269-85-05Qj [address]Azzktaxcwhs, [place] [address]ZJ: 08/03/2018 Tertiary NOT GIVENUNK [place] Insurance:SELF PAY [facility] Number: Effective Repository Date:2018-08-03 08/03/2018 LI TERRAZASE8930 Primary LI E [place] Insurance:MEDICARE [place]OB: [place] [facility] [id number] Hospital [address]Hjb: (330) Number: Repository [phone] () [id number] Date:2018-08-03 08/03/2018 Secondary NETTA E [place] Insurance:CIGNAPolic WOLFEDOB: Community y Number: [id number] Hospital [id number] Repository Date:4499-33-96Mq [address]UgrgaexklruENSIGN, [place] [address]HO: 08/03/2018 Tertiary NOT GIVENUNK [place] Insurance:SELF PAY [facility] Number: Effective Repository Date:2018-08-03 08/03/2018 LI TERRAZASE8930 Primary LI E [place] Insurance:MEDICARE [place]OB: [place] [facility] [id number] Hospital [address]Bdn: (330) Number: Repository [phone] () [id number] Date:2018-08-03 08/03/2018 Secondary NETTA E [place] Insurance:CIGNAPolic WOLFEDOB: Community y Number: [id number] Hospital [id number] Repository Date:4238-97-49Ns [address] [place] [address]EV: 08/03/2018 Tertiary NOT GIVENUNK [place] Insurance:SELF PAY [facility] Number: Effective Repository Date:2018-08-03 07/20/2018 LI TERRAZASE8930 Primary LI E [place] Insurance:MEDICARE WOLFEDOB: [place] [facility] [id number] Hospital [address]Fjm: (330) Number: Repository [phone] () [id number] Date:2018-07-20 07/20/2018 Secondary NETTA E [place] Insurance:CIGNAPolic WOLFEDOB: Community y Number: [id number] Hospital [id number] Repository Date:6898-80-60Os [address]Vwzvtgbnvuh, [place] [address]PA: 07/20/2018 Tertiary NOT GIVENUNK [place] Insurance:SELF PAY [facility] Number: Effective Repository Date:2018-07-20 07/20/2018 LI TERRAZASE8930 Primary LI E [place] Insurance:MEDICARE WOLFEDOB: [place] [facility] [id number] Hospital [address]Wyn: (330) Number: Repository [phone] () [id number] Date:2018-07-07 07/20/2018 Secondary NETTA E [place] Insurance:CIGNAPolic WOLFEDOB: Community y Number: [id number] Hospital [id number] Repository Date:6339-52-93Bx [address]Ufqmomesjge, [place] [address]IG: 07/20/2018 Tertiary NOT GIVENUNK [place] Insurance:SELF PAY [facility] Number: Effective Repository Date:2018-07-19 04/05/2018 LI TERRAZASE8930 Primary [facility] Insurance:MEDICAREPo [place] licy Number: Repository [id number]: 330 [id number] [phone] () Date:2001-12-21 04/05/2018 Secondary [facility] Insurance:[facility] y Number: Repository [id number] Date: [address]ZRIFOQJOZH, [place] [address]LF: 09/07/2017 LI TERRAZASE8930 Primary LI E [place] Insurance:MEDICARE WOLFEDOB: [place] [facility] [id number] Hospital [address]Cnf: (330) Number: Repository [phone] () [id number] Date:2017-08-03 09/07/2017 Secondary NETTA E [place] Insurance:CIGNAPolic WOLFEDOB: Community y Number: [id number] Hospital [id number] Repository Date:4319-49-21Le [address] [address]Tmhpuepfnit, [place] [address]WX: 09/07/2017 Tertiary NOT GIVENUNK [place] Insurance:SELF PAY [facility] Number: Effective Repository Date:2017-08-03 09/03/2017 LI Tarsha [id number] Primary LI E [place] Insurance:MEDICARE [place]OLFEDOB: [place] [facility] [id number] Hospital [address]Czz: (330) Number: Repository [phone] () [id number] Date:2017-08-17 09/03/2017 Secondary NETTA E [place] Insurance:CIGNAPolic WOLFEDOB: Community y Number: [id number] Hospital [id number] Repository Date:0992-14-36Dj [address]Tculabtiljs, [place] [address]AN: 09/03/2017 Tertiary NOT GIVENUNK [place] Insurance:SELF PAY [facility] Number: Effective Repository Date:2017-08-17 09/03/2017 LI Tarsha [id number] Primary LI E [place] Insurance:MEDICARE WOLFEDOB: Community [place] PART [place] [facility] [id number] Hospital [address]Inh: (330) Number: Repository [phone] ) [id number] Date:2017-08-17 09/03/2017 Secondary NETTA E [place] Insurance:CIGNAPolic WOLFEDOB: Community y Number: [id number] Hospital [id number] Repository Date:1420-74-16Sj [address]Sjpuzoqfcrg, [place] [address]BX: 09/03/2017 Tertiary NOT GIVENUNK [place] Insurance:SELF PAY [facility] Number: Effective Repository Date:2017-09-03
== END ==
PROVIDERS: Family Provider Family Medicine; PCP Family Medicine; Referring Provider Surgery; Visit Provider Surgery
DX: J06.9 Acute upper respiratory infection, unspecified (principal)
CPT/HCPCS: 71046

== ENCOUNTER 2018-08-03 02:28 | Inpatient (IN) | payer MEDICARE, OTHER, SELFPAY ==
[2018-07-20 13:58] VITALS: BMI 21.9
[2018-08-03] VITALS (15 sets, daily range): BP systolic 103–158; BP diastolic 50–68; PULSE 53–64; RESP 14–18; TEMP 36.3–37; O2SAT 94–99; BMI 21.7; BMI 53.9
--- NOTE | 2018-08-03 02:45 | CT_ITS ---
HISTORY: NAUSEA,VOMITING AND DIARRHEA SINCE LAST NIGHT,DARK TARRY STOOL,VOMITED BLOODHX:CAD,CHF,COPD,HTN,BREAST AND SKIN CANCERSURGERY:APPENDECTOMY,CABG/STENT,PACEMAKER,BRENDA TECHNIQUE: Helically acquired images were obtained of the abdomen and pelvis following IV contrast. A radiation dose optimization technique was used for this scan. IV Contrast dosage and agent: 100 cc Isovue-300 contrast Oral contrast: None. COMPARISON: None FINDINGS: Lower thorax: No pleural effusion. Cardiomegaly with permanent transvenous pacemaker and a right atrial lead and biventricular pacing. No pericardial effusion. Previous median sternotomy. Small hiatal hernia. 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 The spleen, pancreas, gallbladder, and biliary system show no CT abnormality. Both kidneys are normal in position. Considerable right renal atrophy. Bilateral renal excretion of contrast without hydronephrosis or suspicious renal lesion. Adrenal glands are not enlarged. Abdominal aorta is diffusely atherosclerotic and the upper aorta is ectatic at the thoracoabdominal junction. No ascites or retroperitoneal lymphadenopathy. GI tract: No obstruction. Numerous colonic diverticula without CT findings of diverticulitis or other colitis. No pericecal inflammatory changes. Pelvis: Hysterectomy. Urinary bladder is well distended with estimated volume of 250 cc. The pelvis shows no free fluid or lymphadenopathy. Bones: No acute osseous abnormality. Mild lumbar levoscoliosis. CT/Abdomen/Pelvis W IV Cont ONLY IMPRESSION: 1. Diverticulosis coli. No diverticulitis or other colitis identified. 2. Cardiomegaly with permanent transvenous pacemaker in place. 3. Chronic findings include atrophic right kidney, small hiatal hernia, and atherosclerotic, ectatic aorta. Individualized dose optimization techniques were used for this CT. at 0451 Reported and signed by: Brant Hatfield MD Electronically Signed: Brant Hatfield, at 4:49 EST Tel , Service support ,
--- NOTE | 2018-08-03 02:45 | EKG12_ITS ---
Test Reason : N/V Blood Pressure : / mmHG Vent. Rate : 060 BPM Atrial Rate : 077 BPM P-R Int : 000 ms QRS Dur : 158 ms QT Int : 444 ms P-R-T Axes : 000 -86 096 degrees QTc Int : 444 ms Ventricular-paced rhythm Biventricular pacemaker detected Abnormal ECG Confirmed by LASHNODA YOU, DYLAN ([id number]), rewrite editor MARIBEL VAZQUEZ ([id number]) on 08/05/2018 9:10:21 AM Referred By: OMARI Confirmed By:YDLAN GALLEGO MD
--- NOTE | 2018-08-03 02:49 | ED.VISSUMM ---
- ER Visit Summary Date of Service: 08/03/18 Chief Complaint: Vomiting and diarrhea History of Present Illness: The patient is a 82 F presenting with vomiting and diarrhea. This started yesterday afternoon. She states she had a black stool followed by blood in her stool. She later developed dark emesis. Just prior to arrival she felt lightheaded and fell to the floor. She is not sure if she completely passed out. She denies injury. She complains of mild abdominal pain. Denies other complaints. She is on aspirin and Plavix. Physical Examination: Vitals are stable. Patient is afebrile. Alert no acute distress. HEENT exam is unremarkable. Neck is supple. Lungs are clear and equal bilaterally. Heart is regular rate and rhythm. Abdomen is soft mild left lower quadrant tenderness with no rebound or guarding Extremities are unremarkable. Skin is warm and dry. No focal neurologic deficit. Remainder of exam is unremarkable. Emergency Department Course and Treatment: Patient was given IV fluids, Zofran. CT abdomen with IV only contrast shows diverticulosis coli. No diverticulitis or other colitis identified. Cardiomegaly with permanent transvenous pacemaker in place. Chronic findings include atrophic right kidney, small hiatal hernia, and atherosclerotic, ectatic aorta. CBC shows hemoglobin 10.0. Chemistries show glucose 177, BUN 68, creatinine 1.30. INR is 1.2. Stool guaiac is negative although this may be a false negative. Troponin 0.017. Unable to pass NG tube on multiple attempts. She has had no vomiting in the emergency department. Discussed with Dr. Shaikh and the hospitalist for admission. Disposition: Admission Impression: Upper GI bleed This note was generated with [employer] dictation software. It may contain incorrect words, spelling, and punctuation that were not noted in review of the chart prior to signing ED Disposition - Plan for ED Patient: Chief Complaint: Nausea/Vomiting/Diarrhea Referrals: Sudhir Fuller III, MD [Primary Care Provider] -
[2018-08-03 03:04] LABS: Absolute Lymphocyte Count 1.98 X10^3/ul (0.83-4.51); Absolute Neutrophil Count 6.4 X10^3/uL (2.0-7.7); Basophil# 0.04 X10^3/uL; Basophil% 0.4 % (0-1); Eosinophil# 0.21 X10^3/uL; Eosinophils% 2.3 % (0-5); Hematocrit 31.7 % (37-47); Lymphocyte # 1.98 X10^3/ul (4.0); Lymphocyte % 21.8 % (19-41); Mean Corp Hgb Conc 31.5 g/gl (32-36); Mean Corpuscular Hgb 32.4 pg (27.0-32.0); Mean Corpuscular Volume 102.6 fL (81-99); Mean Platelet Vol. 9.9 fl (6.2-12.0); Monocyte# 0.41 X10^3/uL; Monocyte% 4.5 % (0-10); Neutrophil # 6.41 X10^3/uL (2.7-7.7); Neutrophil % 70.7 % (47-70); POSITIVE COUNT NO; POSITIVE DIFFERENTIAL NO; POSITIVE MORPHOLOGY NO; Platelet Count 305 K/mm3 (150-450); RBC Distribution Width CV 13.2 % (11.6-14.6); RBC Distribution Width SD 49.5 fl (35.1-43.9); Red Blood Count 3.09 M/mm3 (4.2-5.4); White Blood Count 9.1 K/mm3 (4.4-11.0)
[2018-08-03 03:05] LABS: International Normalized Ratio 1.2; Prothrombin Time (Protime)PT. 14.9 SECONDS (11.7-14.9)
[2018-08-03 03:06] LABS: Partial Thromboplast Time 23.1 Seconds (24.1-36.2)
[2018-08-03] MEDS: Ondansetron 4 MG/2 ML Vial IV (03:09)
[2018-08-03] MEDS: 0.9% Normal Saline 1,000 ML 1000 ML IV (03:09)
[2018-08-03 03:14] LABS: Anion Gap 9 (5-15); BUN 68 mg/dL (7-18); BUN/Creat Ratio 52.3 RATIO (10-20); Calcium,Total 9.9 mg/dL (8.5-10.1); Chloride 107 mmol/L (98-107); EST Glomerular Filtration Rate 42 mL/min (>60); Est Glom Filt Rate - Afr Amer 51 mL/min (>60); Estimated Creatinine Clearance 26.84 ml/min; Glucose 177 mg/dL (74-106); Potassium 5.1 mmol/L (3.5-5.1); Sodium Level 143 mmol/L (136-145)
[2018-08-03] MEDS: Lidocaine 4% 5 ML Ampul 2 ML INHALATION (04:21)
--- NOTE | 2018-08-03 06:36 | NURSING ---
[address] CARDOSO
--- NOTE | 2018-08-03 06:53 | PCM.HP.STD ---
Problem List (1) Acute blood loss anemia Status: Acute (2) COPD (chronic obstructive pulmonary disease) Status: Chronic History of Present Illness Date of Admission: 08/03/18 Chief Complaint: melena, hematochezia; and coffee ground emesis The patient is a 82 year old F with a significant history of CAD status post CABG 12 years ago and stents about 15 years ago and on aspirin and Plavix; PAD status post balloon angioplasty; goiter status post thyroidectomy and on Synthroid; parathyroid tumor; permanent pacemaker; heart failure on Lasix and digoxin; hypertension who presented with a 1 day history of melena; diarrhea; hematochezia and coffee-ground emesis. Associated with her symptoms is a Vertigo; and headaches. She reports taking medicine for vertigo that made her sleep. Patient denies taking any NSAIDs use. She reports that occasionally she taking Excedrin. Indeed when her symptoms started she had some headache for which reason she took some Excedrin. Past Medical History Past Medical History (Chronic Problems): Chronic Problems (Last Reviewed 08/03/18 @ 07:33 by Messi Hendricks MD) Arrhythmia (Chronic) COPD (chronic obstructive pulmonary disease) (Chronic) Coronary artery disease (Chronic) Peripheral arterial disease (Chronic) Medical History: Medical History (Last Reviewed 08/03/18 @ 07:33 by Messi Hendricks MD) Respiratory abnormality (Acute) J98.9 CAD (coronary artery disease) I25.10 History of breast cancer Z85.3 Hypothyroidism E03.9 PAD (peripheral artery disease) I73.9 Pacemaker Z95.0 COPD (chronic obstructive pulmonary disease) J44.9 HTN (hypertension) I10 Allergies acetaminophen [From Percocet] Allergy (Verified 08/03/18 02:29) Other alendronate sodium [From Fosamax] Allergy (Verified 08/03/18 02:29) Other nitrofurantoin [From Macrodantin] Allergy (Verified 08/03/18 02:29) Rash oxycodone [From Percocet] Allergy (Verified 08/03/18 02:29) Other quinapril [From Accupril] Allergy (Verified 08/03/18 02:29) Rash atorvastatin [From Lipitor] Adverse Reaction (Verified 08/03/18 02:29) Pain in joints diclofenac [From Arthrotec 50] Adverse Reaction (Verified 08/03/18 02:29) Upset Stomach misoprostol [From Arthrotec 50] Adverse Reaction (Verified 08/03/18 02:29) Upset Stomach Home Medications: Ambulatory Orders Medication Instructions Recorded Clopidogrel Bisulfate [Plavix] 75 mg PO DAILY 12/15/16 Aspirin 325 mg PO DAILY@0800 07/08/17 Digoxin [Lanoxin] 62.5 mcg PO DAILY 07/08/17 Furosemide [Lasix] 20 mg PO DAILY 07/08/17 Levothyroxine [Synthroid] 125 mcg PO DAILY 07/08/17 Lorazepam [Ativan] 1 mg PO QHS PRN PRN 07/08/17 Losartan Potassium 50 mg PO DAILY 07/08/17 Nitroglycerin [Nitrostat] 0.4 mg SL PRN PRN 07/08/17 Spironolactone [Aldactone] 25 mg PO DAILY 07/08/17 Calcium Carbonate/Vitamin D3 1 each PO DAILY 08/03/18 [Calcium 600 + Vit D 400 Tablet] Co Q10 200 [Co Q-10] 100 mg PO DAILY 08/03/18 Multivitamins,Therapeutic 1 tablet PO DAILY 08/03/18 [Multivitamin] [place] [facility]-3 Fatty Acids/Fish Oil [Fish 1 each PO DAILY 08/03/18 Oil 1,000 mg Capsule] Rosuvastatin Calcium [Crestor] 10 mg PO QHS 08/03/18 Surgical History: Surgical History (Last Reviewed 08/03/18 @ 07:33 by Messi Hendricks MD) History of coronary artery bypass graft x 3 Z95.1 S/P peripheral artery angioplasty with stent placement Z95.820 Status post peripheral artery angioplasty Z98.62 Lives: Spouse/ Significant Other Smoking Status: Never smoker - *Family History Maternal Family History: Family History (Last Reviewed 08/03/18 @ 07:34 by Messi Hendricks MD) Sister Breast cancer Hypertension History Items: No pertinent history Review of Systems Constitutional: Reports: Anorexia. Denies: Chills, Fever, Weight Change HEENT: Reports: Head Aches - left supra orbital and left frontal. Denies: Sinus Congestion, Sinus Drainage Cardiovascular: Denies: Chest Pain, Palpitations Respiratory: Denies: Cough, Shortness of breath at rest, Sputum production Gastrointestinal: Reports: Abdominal Pain, Hematochezia, Nausea, Vomiting Genitourinary: Denies: Dysuria Musculoskeletal: Denies: Joint Pain, Joint Tenderness Skin: Denies: Rash, Wounds Neurological: Denies: Numbness, Tingling, Focal weakness Psychiatric: Denies: Anxiety, Depression, Homicidal Ideations, Suicidal Ideations Hematologic/ Lymphatic: Denies: Easy Bruising, Easy Bleeding VTE Information - Inpt Only VTE Present on Admission: No VTE Mechan Device Prophylaxis: SCD's, None VTE Pharm Prophylaxis ordered?: No Patient Problems: Active and Suspected Problems (Last Reviewed 08/03/18 @ 07:33 by Messi Hendricks MD) Acute blood loss anemia (Acute) - Physical Exam General: Alert, Oriented x3, Cooperative HEENT: Atraumatic, PERRLA, EOMI, Normocephalic Neck: Supple, No JVD, Negative Carotid Bruits Lungs: Clear to auscultation, Normal air movement Cardiovascular: Regular rate, No murmurs Abdomen: Bowel Sounds Present, Soft, Non Tender, Tender - supra-pubic tenderness that might be due to need to void at the time of examination, - - Rectal exams with melena; and small external hemorrhoid. Extremities: No edema, Capillary Refill Less than 3 Seconds Skin: No rashes, No breakdown Musculoskeletal: No Tenderness to Palpation of Joints or Extremities Neurological: Facial Droop Psych/Mental Status: Normal Affect, Appropriate Vital Signs Temp Pulse Resp BP Pulse Ox 97.6 F L 63 16 158/68 H 99 08/03/18 06:44 08/03/18 06:44 08/03/18 06:44 08/03/18 06:44 08/03/18 06:44 Oxygen Delivery Method Room Air Weight: 54 kg Body Mass Index (BMI) 21.7 Microbiology Past 72 Hours 08/03/18 02:52 Stool Occult Blood (JERICA) - Final Stool Laboratory Tests Past 24 Hrs 08/03/18 08/03/18 08/03/18 02:45 02:45 02:45 WBC 9.1 RBC 3.09 L Hgb 10.0 L Hct 31.7 L MCV 102.6 H MCH 32.4 H MCHC 31.5 L RDW 13.2 RDW Differential 49.5 H Plt Count 305 MPV 9.9 Immature Gran % (Auto) 0.300 Neut % (Auto) 70.7 H Lymph % (Auto) 21.8 [place] % (Auto) 4.5 Eos % (Auto) 2.3 Baso % (Auto) 0.4 Absolute Neuts (auto) 6.4 Absolute Lymphs (auto) 1.98 Total Counted Not Reportable PT 14.9 INR 1.2 APTT 23.1 L Sodium 143 Potassium 5.1 Chloride 107 Carbon Dioxide 27.0 Anion Gap 9 BUN 68 H Creatinine 1.30 H Estim Creat Clear Calc 26.84 Est GFR (MDRD) Af Amer 51 L Est GFR (MDRD) Non-Af 42 L BUN/Creatinine Ratio 52.3 H Glucose 177 H Calcium 9.9 Troponin I 0.017 Assessment/Plan All Active Problems (Last Reviewed 08/03/18 @ 07:33 by Messi Hendricks MD) Acute blood loss anemia (Acute) Respiratory abnormality (Acute) CAP (community acquired pneumonia) (Acute) Severe sepsis (Acute) Peripheral vascular disease (Acute) The patient is a 82 year old F with a significant history of CAD status post CABG 12 years ago and stents about 15 years ago and on aspirin and Plavix; PAD status post bilateral balloon angioplasty; goiter status post thyroidectomy and on Synthroid; parathyroid tumor; permanent pacemaker; heart failure on Lasix and digoxin; hypertension who presented with a 1 day history of melena; diarrhea; hematochezia and coffee-ground emesis and found to have elevated BUN and elevated creatinine consistent with acute blood loss anemia secondary to likely upper GI bleed. Acute blood loss anemia With elevated BUN and creatinine likely this is upper GI bleed Patient received normal saline 1 L bolus at emergency department. Continue gentle fluid hydration. Will hold her Plavix and aspirin. Initial occult stool at the emergency department was negative. However her stool was black and tarry with reddish stint that looks grossly that she is bleeding. IV and IV Zofran for nausea. Protonix bolus and drip ordered. SUNI on CKD stage III. Admission creatinine was 1.30. Review of old records shows a creatinine around 1.0. BUN elevated likely due to GI bleed Likely pre-renal from acute blood loss anemia Gentle IV hydration. Avoid nephrotoxics Trend BMP Heart failure Because of her acute kidney injury will hold digoxin for now. Patient received normal saline 1 L the emergency department. Maintenance normal saline at 75 mL of a one-to-one has been ordered. Lasix and Aldactone has been held at this time. Clinical monitoring to make sure the patient is not thrown into heart failure. Digoxin level ordered. Hypertension On admission blood pressure was not within goal. Because of n.p.o. status will hold all her antihypertensive medication. Labetalol as needed for hypertension Permanent pacemaker Pacing appropriately PAD Status post balloon angioplasty and left leg. Patient states that she is here to schedule for another interventional procedure in her right leg. Continue outpatient follow-up. Hypothyroidism We will hold her home Synthroid. Will resume when patient is no longer n.p.o. Parathyroid Tumor Patient is following up with PCP. Continue outpatient follow-up. Insomnia Ativan nightly as needed continued. COPD Stable DVT Prophylaxis SCD No chemical prophylaxis because of GI bleed Code Visit Inpatient E&M: 78656 Init Hosp L3
[2018-08-03 07:39] LABS: Hematocrit 27.5 % (37-47); Hemoglobin 8.9 g/dl (12.0-15.0)
[2018-08-03 08:16] LABS: Digoxin Level 0.94 ng/mL (0.80-2.00)
[2018-08-03] MEDS: 0.9% Normal Saline 1,000 ML 75 ML IV (08:18)
--- NOTE | 2018-08-03 09:48 | CASEMGMT ---
SHERRILL JUNG assessment: Face to Face with patient for initial transition planning/care coordination assessment. SHERRILL JUNG introduced self and role at [facility], pt voices understanding and consents to assessment at this time. Pt is sitting up in bed in no distress at this time. Pt is A/Ox4 at this time and answers all questions appropriately at this time. Pt's at bedside during assessment. Care providers, pharmacy, and demographics verified at this time. PCP: Jonny III Specialists: Jahaira, cardio; Jonny, surgeon Preferred Pharmacy: [facility] [facility] Insurance: MCR A/B, [employer] Prescription Benefit: [employer] Living Will/HPOA: Pt states does not have LW/HPOA and declines info at this time. LNOK: Patriciocie Ice, daughter Living Arrangements: Pt states lives with sig other in 1 story home with 2 steps in and states no concerns at home at this time. Transportation: Pt states drives self and states no transportation concerns at this time. DME/HHC: Pt states has grab bars in shower and states no other DME or need for any at this time. Pt states no hx of HHC or SNF at this time. Pt states no concerns with going home at time of discharge. Pt is retired. Pt states does not smoke or drink ETOH. Pt states no further concerns/needs at this time. CM to follow PT/OT notes and for any further discharge planning/needs. Advised pt to ask for CM if any further questions/concerns/needs at this time, voices understanding. Plan: [place] SHERRILL JUNG
--- NOTE | 2018-08-03 11:05 | PCM.PN.HOSP ---
Patient Problems: Active and Suspected Problems (Last Reviewed 08/03/18 @ 07:33 by Messi Hendricks MD) Acute blood loss anemia (Acute) Subjective: No further N/V/D. No further melena. Never had before. Vitals/I&O's: Vital Signs Temp Pulse Resp BP Pulse Ox 36.7 C 60 14 113/67 96 08/03/18 07:13 08/03/18 09:45 08/03/18 07:43 08/03/18 09:45 08/03/18 07:43 Oxygen Delivery Method Room Air Weight: 53.9 kg Body Mass Index (BMI) 21.7 General: Alert, Cooperative, No apparent distress HEENT: Atraumatic, Normocephalic Oral: Moist Mucosa, No Gingival or Mucosal Lesions/ Ulcerations Neck: No Nodes, Thyroid Normal Size and Texture Lungs: Clear to auscultation, Normal air movement, No rhonchi, No wheeze Cardiovascular: Regular rate, Regular Rhythm, Normal S1, Normal S2, No murmurs Abdomen: Bowel Sounds Present, Soft, Non Tender, Non-Distended, No Hepato-splenomegaly Extremities: No edema, No Calf Tenderness Microbiology Past 72 Hours 08/03/18 06:40 Stool Stool Occult Blood (JERICA) - Final 08/03/18 02:52 Stool Stool Occult Blood (JERICA) - Final Laboratory Results 08/03/18 02:45: WBC 9.1, RBC 3.09 L, Hgb 10.0 L, Hct 31.7 L, MCV 102.6 H, MCH 32.4 H, MCHC 31.5 L, RDW 13.2, RDW Differential 49.5 H, Plt Count 305, MPV 9.9, Immature Gran % (Auto) 0.300, Neut % (Auto) 70.7 H, Lymph % (Auto) 21.8, [place] % (Auto) 4.5, Eos % (Auto) 2.3, Baso % (Auto) 0.4, Absolute Neuts (auto) 6.4, Absolute Lymphs (auto) 1.98, Total Counted Not Reportable 08/03/18 02:45: PT 14.9, INR 1.2, APTT 23.1 L 08/03/18 02:45: Sodium 143, Potassium 5.1, Chloride 107, Carbon Dioxide 27.0, Anion Gap 9, BUN 68 H, Creatinine 1.30 H, Estim Creat Clear Calc 26.84, Est GFR (MDRD) Af Amer 51 L, Est GFR (MDRD) Non-Af 42 L, BUN/Creatinine Ratio 52.3 H, Glucose 177 H, Calcium 9.9, Troponin I 0.017 08/03/18 07:25: Digoxin 0.94 08/03/18 07:25: Hgb 8.9 L, Hct 27.5 L Current Medications Sodium Chloride () 1,000 mls @ 75 mls/hr IV .[id number] [facility] Stop: 08/03/18 20:33 Last Admin: 08/03/18 08:18 Dose: 75 mls/hr Pantoprazole Sodium 80 mg/ (Sodium Chloride) 100 mls @ 10 mls/hr CONT INF Q10H [facility] Last Admin: 08/03/18 08:27 Dose: 10 mls/hr Labetalol HCl (Trandate) 10 mg IV Q4H PRN PRN PRN Reason: sbp>160 Lorazepam (Ativan) 0.5 mg PO QHS PRN PRN PRN Reason: INSOMNIA Ondansetron HCl (Zofran) 4 mg IV Q6H PRN PRN PRN Reason: NAUSEA/VOMITING Medical Necessity - Tobacco Use Smoking Status: Never smoker Assessment/Plan All Active Problems (Last Reviewed 08/03/18 @ 07:33 by Messi Hendricks MD) Acute blood loss anemia (Acute) Respiratory abnormality (Acute) CAP (community acquired pneumonia) (Acute) Severe sepsis (Acute) Peripheral vascular disease (Acute) 1. GI bleed etiology unclear: PUD, MWT, AVM, etc. on IV PPI NPO general surgery on consult 2. ABLA 2/2 above monitor no need for transfusion at this time. 3. CAD/PAD ASA and Plavix on hold given #1 remote stents had angioplasty of Left popliteal, tibioperoneal trunk and peroneal on 07/23/17 4. DVT proph: SCD. chemical prophylaxis is contraindicated given 1 & 2. Code Visit Procedures: Other Procedure - See Report - non billable rounding.
--- NOTE | 2018-08-03 11:11 | PN_ITS ---
Patient Problems: Active and Suspected Problems (Last Reviewed 08/03/18 @ 07:33 by Messi Hendricks MD) Acute blood loss anemia (Acute) Subjective: No further N/V/D. No further melena. Never had before. Vitals/I&O's: Vital Signs Temp Pulse Resp BP Pulse Ox 36.7 C 60 14 113/67 96 08/03/18 07:13 08/03/18 09:45 08/03/18 07:43 08/03/18 09:45 08/03/18 07:43 Oxygen Delivery Method Room Air Weight: 53.9 kg Body Mass Index (BMI) 21.7 General: Alert, Cooperative, No apparent distress HEENT: Atraumatic, Normocephalic Oral: Moist Mucosa, No Gingival or Mucosal Lesions/ Ulcerations Neck: No Nodes, Thyroid Normal Size and Texture Lungs: Clear to auscultation, Normal air movement, No rhonchi, No wheeze Cardiovascular: Regular rate, Regular Rhythm, Normal S1, Normal S2, No murmurs Abdomen: Bowel Sounds Present, Soft, Non Tender, Non-Distended, No Hepato- splenomegaly Extremities: No edema, No Calf Tenderness Microbiology Past 72 Hours 08/03/18 06:40 Stool Stool Occult Blood (JERICA) - Final 08/03/18 02:52 Stool Stool Occult Blood (JERICA) - Final Laboratory Results 08/03/18 02:45: WBC 9.1, RBC 3.09 L, Hgb 10.0 L, Hct 31.7 L, MCV 102.6 H, MCH 32.4 H, MCHC 31.5 L, RDW 13.2, RDW Differential 49.5 H, Plt Count 305, MPV 9.9, Immature Gran % (Auto) 0.300, Neut % (Auto) 70.7 H, Lymph % (Auto) 21.8, [place] % (Auto) 4.5, Eos % (Auto) 2.3, Baso % (Auto) 0.4, Absolute Neuts (auto) 6.4, Absolute Lymphs (auto) 1.98, Total Counted Not Reportable 08/03/18 02:45: PT 14.9, INR 1.2, APTT 23.1 L 08/03/18 02:45: Sodium 143, Potassium 5.1, Chloride 107, Carbon Dioxide 27.0, Anion Gap 9, BUN 68 H, Creatinine 1.30 H, Estim Creat Clear Calc 26.84, Est GFR (MDRD) Af Amer 51 L, Est GFR (MDRD) Non-Af 42 L, BUN/Creatinine Ratio 52.3 H, Glucose 177 H, Calcium 9.9, Troponin I 0.017 08/03/18 07:25: Digoxin 0.94 08/03/18 07:25: Hgb 8.9 L, Hct 27.5 L Current Medications Sodium Chloride () 1,000 mls @ 75 mls/hr IV .[id number] [facility] Stop: 08/03/18 20:33 Last Admin: 08/03/18 08:18 Dose: 75 mls/hr Pantoprazole Sodium 80 mg/ (Sodium Chloride) 100 mls @ 10 mls/hr CONT INF Q10H [facility] Last Admin: 08/03/18 08:27 Dose: 10 mls/hr Labetalol HCl (Trandate) 10 mg IV Q4H PRN PRN PRN Reason: sbp>160 Lorazepam (Ativan) 0.5 mg PO QHS PRN PRN PRN Reason: INSOMNIA Ondansetron HCl (Zofran) 4 mg IV Q6H PRN PRN PRN Reason: NAUSEA/VOMITING Medical Necessity - Tobacco Use Smoking Status: Never smoker Assessment/Plan All Active Problems (Last Reviewed 08/03/18 @ 07:33 by Messi Hendricks MD) Acute blood loss anemia (Acute) Respiratory abnormality (Acute) CAP (community acquired pneumonia) (Acute) Severe sepsis (Acute) Peripheral vascular disease (Acute) 1. GI bleed * etiology unclear: PUD, MWT, AVM, etc. * on IV PPI * NPO * general surgery on consult 2. ABLA * 2/2 above * monitor * no need for transfusion at this time. 3. CAD/PAD * ASA and Plavix on hold given #1 * remote stents * had angioplasty of Left popliteal, tibioperoneal trunk and peroneal on 07/23/17 4. DVT proph: SCD. chemical prophylaxis is contraindicated given 1 & 2. Code Visit Procedures: Other Procedure - See Report - non billable rounding.
--- NOTE | 2018-08-03 18:03 | PCM.CONS.B ---
- Consult Date of Consult: 08/03/18 - Reason for Consult CC: hematemesis, melena, anemia HPI: 82 y/o WF with multiple medical morbidities presents with anemia, initial Hgb was 10, now down to 7.2. Has had melena and hematemesis. Started yesterday afternoon, but persisted and she presented to [facility] ED. Denies abdominal pain, except for rare epigastric discomfort. Occasional right sided abdominal pain. Denies chronic heartburn, symptoms usually just once a month. Denies history of PUD. Has known right lower extremity arterial disease, seen by Dr. Fuller for consideration of vascular procedure. Occasional takes excedrin for headaches. PAST?MEDICAL?HISTORY Actinic keratosis 08/13/2011 Cardiomyopathy (HCC) 03/29/2014 CHF (congestive heart failure) ([facility]) 08/11/2010 Chronic kidney disease (CKD), stage III (moderate) ([facility]) 11/18/2016 Claudication ([facility]) 06/16/2017 Diverticulosis of colon (without mention of hemorrhage) ? Essential hypertension, benign ? External hemorrhoids without mention of complication ? Hypercalcemia 02/19/2017 Internal hemorrhoids without mention of complication ? Lumbar degenerative disc disease 06/30/2013 Malignant neoplasm of breast (female), unspecified site Breast cancer Other osteoporosis ? Pure hypercholesterolemia ? 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 ? MEDICATIONS LORazepam (ATIVAN) 0.5 mg tab Take 1 tablet by mouth at bedtime as needed for up to 30 days. cinacalcet (SENSIPAR) 30 mg tablet Take 1 tablet by mouth twice daily. furosemide (LASIX) 20 mg tablet Take 1 tablet by mouth once daily. meloxicam (MOBIC) 15 mg tablet Take 1 tablet by mouth once daily. With food. Cpvjlqh-Mcksbmunzemup-Ktrankwf (EXCEDRIN) 250-250-65 mg per tablet Take 1 tablet by mouth every 6 hours as needed for Pain. levothyroxine (SYNTHROID) 100 mcg tablet TAKE 1 TABLET BY MOUTH ONE TIME DAILY ON AN EMPTY STOMACH DIGOX 125 mcg tablet TAKE 1 TABLET BY MOUTH ONE TIME DAILY clopidogrel (PLAVIX) 75 mg tablet TAKE 1 TABLET BY MOUTH EVERY DAY spironolactone (ALDACTONE) 25 mg tablet Take 1 tablet by mouth once daily. losartan (COZAAR) 100 mg tablet TAKE 1 TABLET BY MOUTH ONE TIME DAILY carvedilol (COREG) 25 mg tablet TAKE 1 TABLET BY MOUTH TWICE DAILY nitroglycerin sublingual (NITROSTAT) 0.4 mg SL tablet Dissolve 1 tablet under the tongue as needed. DISSOLVE ON TONGUE FOR CHEST PAIN. IF NO PAIN RELIEF, CALL 911 OTC PRODUCT Vitamin D 1000 mg daily. ? SOCIAL?HISTORY Cancer Mother? ovarian Heart Father ? Breast Cancer Sister?Substance Use Topics Smoking status: Never Smoker Smokeless tobacco: Never Used Alcohol use No Review of systems: General: has had some weight loss, decreased appetite, denies fevers Cardiovascular: has pacemaker Respiratory: has shortness of breath with exertion Gastrointestinal - see above Neurological: denies seizures Kidneys - has chronic kidney disease Musculoskeletal - has bad knees PHYSICAL EXAMINATION: ? BP 142/62 Pulse 88 Temp 98.5 ?F Resp 16 Wt 120 lb General: APPEARANCE Well appearing, alert, in no acute distress, well-hydrated, well nourished. Neck supple with no JVD, trachea midline Eyes - wearing glasses, sclera clear Lungs clear to auscultation, no rhonchi/wheezing noted Heart sounds - regular Abdomen - soft and benign, normal bowel sounds EXTREMITIES mild lower dependent swelling bilaterally. IMPRESSION: anemia GI bleed PLAN: I have offered upper and lower endoscopy, however, she will require colon cleansing preparation. However, her kidney function tests are elevated and before she undergoes colon cleansing preparation, this should be addressed. Upper and lower endoscopy can be done on Wednesday. I have offered upper endoscopy to be done tomorrow, however, patient's family declines this and wants both done at same time. At this point, patient can be on clear liquid diet.
--- NOTE | 2018-08-03 18:51 | NURSING ---
Reviewed and agreed on all charting with Gavino Tovar RN
[2018-08-03 22:27] LABS: Hematocrit 22.4 % (37-47); Hemoglobin 7.2 g/dl (12.0-15.0)
[2018-08-04] VITALS (31 sets, daily range): BP systolic 70–179; BP diastolic 15–93; PULSE 60–74; RESP 16–27; TEMP 35.9–37.3; O2SAT 92–100; BMI 21.7
[2018-08-04] MEDS: LORazepam 0.5 MG Tablet PO (01:16)
[2018-08-04 05:59] LABS: Hematocrit 25.9 % (37-47); Hemoglobin 8.2 g/dl (12.0-15.0)
[2018-08-04 06:04] LABS: Anion Gap 7 (5-15); BUN 47 mg/dL (7-18); BUN/Creat Ratio 37.6 RATIO (10-20); Calcium,Total 9.2 mg/dL (8.5-10.1); Chloride 113 mmol/L (98-107); Creatinine, Serum 1.25 mg/dL (0.55-1.02); EST Glomerular Filtration Rate 44 mL/min (>60); Est Glom Filt Rate - Afr Amer 53 mL/min (>60); Estimated Creatinine Clearance 27.92 ml/min; Glucose 94 mg/dL (74-106); Potassium 4.6 mmol/L (3.5-5.1); Sodium Level 146 mmol/L (136-145)
--- NOTE | 2018-08-04 09:08 | PCM.PN.BLA ---
Progress Note Patient with decreased Hgb I have discussed consideration of upper endoscopy today (since no preparation required and this is a short procedure) She agrees. I have told her the risks of the procedure, including but not limited to: infection, bleeding, perforation of the GI tract, etc. - she understands and agrees to proceed.
--- NOTE | 2018-08-04 11:08 | PCM.PN.HOSP ---
Patient Problems: Active and Suspected Problems (Last Reviewed 08/03/18 @ 07:33 by Messi Hendricks MD) Acute blood loss anemia (Acute) Subjective: Had some jelly-like bloody stool last night. No abdominal pain. Vitals/I&O's: Vital Signs Temp Pulse Resp BP Pulse Ox 36.7 C 60 18 138/70 H 96 08/04/18 10:05 08/04/18 10:05 08/04/18 10:05 08/04/18 10:05 08/04/18 10:05 Oxygen Delivery Method Room Air Weight: 53.9 kg Body Mass Index (BMI) 21.7 Intake and Output for Last 24 Hours 08/02/18 08/03/18 08/04/18 23:59 23:59 23:59 Intake Total 1141.7 / 1141.7 854 / 854 Balance 1141.7 / 1141.7 854 / 854 General: Alert, Cooperative, No apparent distress HEENT: Atraumatic, Normocephalic Oral: Moist Mucosa, No Gingival or Mucosal Lesions/ Ulcerations Neck: No Nodes, Thyroid Normal Size and Texture Lungs: Clear to auscultation, Normal air movement, No rhonchi, No wheeze Cardiovascular: Regular rate, Regular Rhythm, Normal S1, Normal S2, No murmurs Abdomen: Bowel Sounds Present, Soft, Non Tender, Non-Distended, No Hepato-splenomegaly Extremities: No edema, No Calf Tenderness Skin: No rashes, No breakdown Psych/Mental Status: Normal Affect, Appropriate Microbiology Past 72 Hours 08/03/18 06:40 Stool Stool Occult Blood (JERICA) - Final 08/03/18 02:52 Stool Stool Occult Blood (JERICA) - Final Laboratory Results 08/03/18 02:45: Blood Type A POSITIVE, Antibody Screen NEGATIVE, Crossmatch See Detail 08/03/18 22:00: Hgb 7.2 L, Hct 22.4 L 08/04/18 05:25: Sodium 146 H, Potassium 4.6, Chloride 113 H, Carbon Dioxide 26.0, Anion Gap 7, BUN 47 H, Creatinine 1.25 H, Estim Creat Clear Calc 27.92, Est GFR (MDRD) Af Amer 53 L, Est GFR (MDRD) Non-Af 44 L, BUN/Creatinine Ratio 37.6 H, Glucose 94, Calcium 9.2 12/13/18 05:25: Hgb 8.2 L, Hct 25.9 L Current Medications Pantoprazole Sodium 80 mg/ (Sodium Chloride) 100 mls @ 10 mls/hr CONT INF Q10H [facility] Last Admin: 08/04/18 04:37 Dose: 10 mls/hr Labetalol HCl (Trandate) 10 mg IV Q4H PRN PRN PRN Reason: sbp>160 Lorazepam (Ativan) 0.5 mg PO QHS PRN PRN PRN Reason: INSOMNIA Last Admin: 08/04/18 01:16 Dose: 0.5 mg Nutritional Formula (Lactose Free) (Ensure Clear) 120 ml PO 4X/DAY JERSON Last Admin: 08/04/18 09:31 Dose: Not Given Ondansetron HCl (Zofran) 4 mg IV Q6H PRN PRN PRN Reason: NAUSEA/VOMITING Sodium Chloride () 5 - 15 ml IV UD PRN PRN Reason: SALINE FLUSH Medical Necessity - Tobacco Use Smoking Status: Never smoker Assessment/Plan All Active Problems (Last Reviewed 08/03/18 @ 07:33 by Messi Hendricks MD) Acute blood loss anemia (Acute) Respiratory abnormality (Acute) CAP (community acquired pneumonia) (Acute) Severe sepsis (Acute) Peripheral vascular disease (Acute) 1. GI bleed etiology unclear: PUD, MWT, AVM, etc. on IV PPI NPO general surgery on consult EGD pending 2. ABLA 2/2 above monitor no need for transfusion at this time. 3. CAD/PAD ASA and Plavix on hold given #1 remote stents had angioplasty of Left popliteal, tibioperoneal trunk and peroneal on 07/23/17 4. DVT proph: SCD. chemical prophylaxis is contraindicated given 1 & 2. 5. Pacemaker placed in 2016 at [facility] patient had some followup about 2 years ago. [facility] informed staff, that they will not clear her as she has not followed up with them in 2 years (though the patient states she wasn't supposed to follow up for 3 years) DW family at bedside. Code Visit Inpatient E&M: 68072 Subs Hosp L2
--- NOTE | 2018-08-04 11:12 | PN_ITS ---
Patient Problems: Active and Suspected Problems (Last Reviewed 08/03/18 @ 07:33 by Messi Hendricks MD) Acute blood loss anemia (Acute) Subjective: Had some jelly-like bloody stool last night. No abdominal pain. Vitals/I&O's: Vital Signs Temp Pulse Resp BP Pulse Ox 36.7 C 60 18 138/70 H 96 08/04/18 10:05 08/04/18 10:05 08/04/18 10:05 08/04/18 10:05 08/04/18 10:05 Oxygen Delivery Method Room Air Weight: 53.9 kg Body Mass Index (BMI) 21.7 Intake and Output for Last 24 Hours 08/02/18 08/03/18 08/04/18 23:59 23:59 23:59 Intake Total 1141.7 / 1141.7 854 / 854 Balance 1141.7 / 1141.7 854 / 854 General: Alert, Cooperative, No apparent distress HEENT: Atraumatic, Normocephalic Oral: Moist Mucosa, No Gingival or Mucosal Lesions/ Ulcerations Neck: No Nodes, Thyroid Normal Size and Texture Lungs: Clear to auscultation, Normal air movement, No rhonchi, No wheeze Cardiovascular: Regular rate, Regular Rhythm, Normal S1, Normal S2, No murmurs Abdomen: Bowel Sounds Present, Soft, Non Tender, Non-Distended, No Hepato- splenomegaly Extremities: No edema, No Calf Tenderness Skin: No rashes, No breakdown Psych/Mental Status: Normal Affect, Appropriate Microbiology Past 72 Hours 08/03/18 06:40 Stool Stool Occult Blood (JERICA) - Final 08/03/18 02:52 Stool Stool Occult Blood (JERICA) - Final Laboratory Results 08/03/18 02:45: Blood Type A POSITIVE, Antibody Screen NEGATIVE, Crossmatch See Detail 08/03/18 22:00: Hgb 7.2 L, Hct 22.4 L 08/04/18 05:25: Sodium 146 H, Potassium 4.6, Chloride 113 H, Carbon Dioxide 26.0, Anion Gap 7, BUN 47 H, Creatinine 1.25 H, Estim Creat Clear Calc 27.92, Est GFR (MDRD) Af Amer 53 L, Est GFR (MDRD) Non-Af 44 L, BUN/Creatinine Ratio 37.6 H, Glucose 94, Calcium 9.2 12/13/18 05:25: Hgb 8.2 L, Hct 25.9 L Current Medications Pantoprazole Sodium 80 mg/ (Sodium Chloride) 100 mls @ 10 mls/hr CONT INF Q10H [facility] Last Admin: 08/04/18 04:37 Dose: 10 mls/hr Labetalol HCl (Trandate) 10 mg IV Q4H PRN PRN PRN Reason: sbp>160 Lorazepam (Ativan) 0.5 mg PO QHS PRN PRN PRN Reason: INSOMNIA Last Admin: 08/04/18 01:16 Dose: 0.5 mg Nutritional Formula (Lactose Free) (Ensure Clear) 120 ml PO 4X/DAY JERSON Last Admin: 08/04/18 09:31 Dose: Not Given Ondansetron HCl (Zofran) 4 mg IV Q6H PRN PRN PRN Reason: NAUSEA/VOMITING Sodium Chloride () 5 - 15 ml IV UD PRN PRN Reason: SALINE FLUSH Medical Necessity - Tobacco Use Smoking Status: Never smoker Assessment/Plan All Active Problems (Last Reviewed 08/03/18 @ 07:33 by Messi Hendricks MD) Acute blood loss anemia (Acute) Respiratory abnormality (Acute) CAP (community acquired pneumonia) (Acute) Severe sepsis (Acute) Peripheral vascular disease (Acute) 1. GI bleed * etiology unclear: PUD, MWT, AVM, etc. * on IV PPI * NPO * general surgery on consult * EGD pending 2. ABLA * 2/2 above * monitor * no need for transfusion at this time. 3. CAD/PAD * ASA and Plavix on hold given #1 * remote stents * had angioplasty of Left popliteal, tibioperoneal trunk and peroneal on 07/23/17 4. DVT proph: SCD. chemical prophylaxis is contraindicated given 1 & 2. 5. Pacemaker * placed in 2016 at [facility] * patient had some followup about 2 years ago. [facility] informed staff, that they will not clear her as she has not followed up with them in 2 years (though the patient states she wasn't supposed to follow up for 3 years) DW family at bedside. Code Visit Inpatient E&M: 17296 Subs Hosp L2
--- NOTE | 2018-08-04 14:19 | NURSING ---
Called report to Kirstie MCCARTNEY in [facility]
--- NOTE | 2018-08-04 16:05 | OP.ENDO_ITS ---
Patient Name: Andressa Connolly Procedure Date: 08/04/2018 3:27 PM Date of : 1935 Age: 82 Procedure: Upper GI endoscopy Indications: Iron deficiency anemia secondary to chronic blood loss Providers: Ciera Bazan MD Medicines: See the Anesthesia note for documentation of the administered medications Patient Profile: Refer to note in patient chart for documentation of history and physical. Complications: No immediate complications. Procedure: Pre-Anesthesia Assessment: - Prior to the procedure, a History and Physical was performed, and patient medications and allergies were reviewed. The patient is competent. The risks and benefits of the procedure and the sedation options and risks were discussed with the patient. All questions were answered and informed consent was obtained. Patient identification and proposed procedure were verified by the physician in the pre-procedure area. Mental Status Examination: alert and oriented. Airway Examination: normal oropharyngeal airway and neck mobility. ASA Grade Assessment: III - A patient with severe systemic disease. After reviewing the risks and benefits, the patient was deemed in satisfactory condition to undergo the procedure. The anesthesia plan was to use monitored anesthesia care (MAC). Immediately prior to administration of medications, the patient was re-assessed for adequacy to receive sedatives. The heart rate, respiratory rate, oxygen saturations, blood pressure, adequacy of pulmonary ventilation, and response to care were monitored throughout the procedure. The physical status of the patient was re-assessed after the procedure. After obtaining informed consent, the endoscope was passed under direct vision. Throughout the procedure, the patient's blood pressure, pulse, and oxygen saturations were monitored continuously. The gastroscope was introduced through the mouth, and advanced to the duodenal bulb. The upper GI endoscopy was accomplished without difficulty. The patient tolerated the procedure well. Scope In: 3:39:10 PM Scope Out: 3:57:10 PM Total Procedure Duration Time 0 hours 18 minutes 0 seconds Findings: The examined esophagus was normal. No gross lesions were noted in the stomach, large amount of blood in stomach. One oozing cratered duodenal ulcer with adherent clot was found in the duodenal bulb. The lesion was 5 mm in largest dimension. Area was successfully injected with 4 mL of a 1:10,000 solution of epinephrine all around the ulcer for hemostasis. Estimated blood loss was minimal. Impression: - Normal esophagus. - No gross lesions in the stomach. - One oozing duodenal ulcer with adherent clot. Injected with epinephrine - No specimens collected. Recommendation: - Repeat upper endoscopy tomorrow for surveillance. - No anticoagulation, aspirin, ibuprofen, naproxen, or other non-steroidal anti-inflammatory drugs. Procedure Code(s): --- Professional --- 74679, Esophagogastroduodenoscopy, flexible, transoral; with control of bleeding, any method Diagnosis Code(s): --- Professional --- K26.4, Chronic or unspecified duodenal ulcer with hemorrhage D50.0, Iron deficiency anemia secondary to blood loss (chronic) CPT copyright 2017 [employer]. All rights reserved. The codes documented in this report are preliminary and upon line up worker review may be revised to meet current compliance requirements. MD Ciera Zimmerman MD 08/04/2018 4:05:45 PM This report has been signed electronically. Number of Addenda: 0 Note Initiated On: 08/04/2018 3:27 PM
--- NOTE | 2018-08-04 16:38 | SUR.PHASEI ---
1610 PT HAS C/O CHEST PAIN, [employer] INTER[employer] NOTES AV PACED RATE 62. BP 179/73 .COLOR IS PALE. PT IS POST EGD. BLOODY EMESIS NOTED. DR RUBIN CALLED, HE WAS PLACING AN EPIDURAL IN OB, DR RUBIN SAID TO CALL HOSPITALIST. DR ROSS , STATES TO CALL DR ADAIR. MESSAGE LEFT FOR DR ADAIR. RESP CALLED FOR STAT EKG, NO CHANGE . DR RUBIN AND VANDANA BOTH ARRIVED. ORDERS TO BE PLACED FOR TRANSFER TO ICU.
--- NOTE | 2018-08-04 17:26 | NURSING ---
Reviewed and agreed on all charting with Gavino Tovar RN
[2018-08-04 17:42] LABS: Absolute Lymphocyte Count 2.82 X10^3/ul (0.83-4.51); Absolute Neutrophil Count 13.3 X10^3/uL (2.0-7.7); Basophil# 0.09 X10^3/uL; Basophil% 0.5 % (0-1); Eosinophil# 0.66 X10^3/uL; Eosinophils% 3.7 % (0-5); Hematocrit 23.9 % (37-47); Hemoglobin 7.4 g/dl (12.0-15.0); Lymphocyte # 2.82 X10^3/ul (4.0); Lymphocyte % 15.8 % (19-41); Mean Corpuscular Hgb 31.6 pg (27.0-32.0); Mean Corpuscular Volume 102.1 fL (81-99); Mean Platelet Vol. 9.8 fl (6.2-12.0); Monocyte# 0.98 X10^3/uL; Monocyte% 5.5 % (0-10); Neutrophil # 13.28 X10^3/uL (2.7-7.7); Neutrophil % 74.2 % (47-70); POSITIVE COUNT NO; POSITIVE DIFFERENTIAL NO; POSITIVE MORPHOLOGY NO; Platelet Count 278 K/mm3 (150-450); RBC Distribution Width CV 15.6 % (11.6-14.6); RBC Distribution Width SD 57.1 fl (35.1-43.9); Red Blood Count 2.34 M/mm3 (4.2-5.4); White Blood Count 17.9 K/mm3 (4.4-11.0)
--- NOTE | 2018-08-04 17:45 | NURSING ---
In ICU1 per bed from PACU, FINISH MACHINE TENDER in attendance
[2018-08-04] MEDS: Ondansetron 4 MG/2 ML Vial IV (18:12)
[2018-08-04] MEDS: 0.9% Normal Saline 1,000 ML 75 ML IV (18:12)
--- NOTE | 2018-08-04 18:30 | NURSING ---
Called report to Jessy MCCARTNEY in ICU
[2018-08-05] VITALS (36 sets, daily range): BP systolic 85–158; BP diastolic 38–126; PULSE 60–67; RESP 13–26; TEMP 36.3–37.3; O2SAT 90–100; BMI 21.9
[2018-08-05] MEDS: 0.9% NaCl Peripheral Flush Adult/Peds IV (01:39)
[2018-08-05 04:52] LABS: Absolute Lymphocyte Count 1.47 X10^3/ul (0.83-4.51); Absolute Neutrophil Count 7.4 X10^3/uL (2.0-7.7); Basophil# 0.03 X10^3/uL; Basophil% 0.3 % (0-1); Eosinophil# 0.04 X10^3/uL; Eosinophils% 0.4 % (0-5); Hemoglobin 7.6 g/dl (12.0-15.0); Lymphocyte # 1.47 X10^3/ul (4.0); Lymphocyte % 15.4 % (19-41); Mean Corp Hgb Conc 31.7 g/gl (32-36); Mean Corpuscular Hgb 30.9 pg (27.0-32.0); Mean Corpuscular Volume 97.6 fL (81-99); Mean Platelet Vol. 9.2 fl (6.2-12.0); Monocyte# 0.64 X10^3/uL; Monocyte% 6.7 % (0-10); Neutrophil # 7.35 X10^3/uL (2.7-7.7); Platelet Count 173 K/mm3 (150-450); RBC Distribution Width CV 17.1 % (11.6-14.6); RBC Distribution Width SD 60.4 fl (35.1-43.9); Red Blood Count 2.46 M/mm3 (4.2-5.4); White Blood Count 9.6 K/mm3 (4.4-11.0)
[2018-08-05 04:54] LABS: POSITIVE COUNT NO; POSITIVE DIFFERENTIAL NO; POSITIVE MORPHOLOGY NO
[2018-08-05 05:06] LABS: Anion Gap 6 (5-15); BUN 39 mg/dL (7-18); BUN/Creat Ratio 34.8 RATIO (10-20); Calcium,Total 8.7 mg/dL (8.5-10.1); Chloride 116 mmol/L (98-107); Creatinine, Serum 1.12 mg/dL (0.55-1.02); EST Glomerular Filtration Rate 50 mL/min (>60); Est Glom Filt Rate - Afr Amer 60 mL/min (>60); Estimated Creatinine Clearance 31.16 ml/min; Glucose 102 mg/dL (74-106); Potassium 4.6 mmol/L (3.5-5.1); Sodium Level 148 mmol/L (136-145)
--- NOTE | 2018-08-05 07:19 | ECHOD_ITS ---
Reason For Study: Elevated Troponins Procedure This was a 2D Doppler, Color Flow transthoracic echocardiogram. Exam performed portable in ICU/CCU. Left Ventricle Normal LV size. Moderate concentric left ventricular hypertrophy. The estimated ejection fraction is 35 %. Moderately severe segmental systolic dysfunction (see wall motion). Septal motion consistent with IVCD. Infero-Basal: Akinetic. Basal inferoseptal: Akinetic. The rest of the wall segments are hypokinetic. Right Ventricle Normal RV size. ICD or pacer leads identified within the right ventricle. Normal systolic function. Atria The left atrium is moderately enlarged. Normal right atrium. ICD or pacer leads identified within the right atrium. Mitral Valve Bileaflet diffuse mitral valve thickening. Moderate (2+) eccentric mitral valve insufficiency. Tricuspid Valve Normal tricuspid valve. Moderate (2+) tricuspid valve insufficiency. Pulmonary artery systolic pressure is 36 mmHg. Aortic Valve Trisinus/trileaflet aortic valve. Mild focal aortic valve calcification. Mild (1+) eccentric aortic valve insufficiency. Pulmonic Valve Normal pulmonic valve. Mild (1+) pulmonic valve insufficiency. Great Vessels Calcified aortic root. The pulmonary artery is normal size. Inferior vena cava collapse with sniff. Pericardium/Pleural No pericardial effusion. MMode/2D Measurements & Calculations LVIDd: 4.7 cm IVSd: 1.7 cm LVOT diam: 2.0 cm LVIDs: 4.1 cm LVPWd: 1.5 cm LVOT area: 3.2 cm2 RVDd: 4.6 cm FS: 12.4 % Ao root diam: 3.3 cm LAV(MOD-bp): 87.4 ml LVAd ap4: 35.2 cm2 LA dimension: 3.5 cm LAV(MOD-bp) Indexed: 57.0 ml/m2 EDV(MOD-sp4): 129.0 ml LAV(MOD-sp2): 86.3 ml EDV(sp4-el): 140.9 ml LAV(MOD-sp4): 77.2 ml LVAs ap4: 28.8 cm2 ESV(MOD-sp4): 95.4 ml ESV(sp4-el): 92.0 ml EF(MOD-sp4): 26.0 % EF(sp4-el): 34.7 % SV(MOD-sp4): 33.5 ml SV(sp4-el): 48.9 ml LA A4 area: 23.5 cm2 RA A4 area: 19.5 cm2 Time Measurements MV dec time: 0.25 sec Doppler Measurements & Calculations MV E max nancy: 94.9 cm/sec Ao V2 max: 236.4 cm/sec AI max nancy: 440.9 cm/sec MV A max nancy: 38.8 cm/sec Ao max P.4 mmHg AI max P.7 mmHg MV E/A: 2.4 Ao V2 mean: 141.8 cm/sec AI dec slope: 248.1 cm/sec2 Ao mean P.7 mmHg AI P1/2t: 520.5 msec Ao V2 VTI: 37.9 cm YUMIKO(I,D): 2.0 cm2 YUMIKO(V,D): 2.1 cm2 LV V1 max: 152.5 cm/sec MR max nancy: 518.6 cm/sec SV(LVOT): 76.1 ml LV V1 max P.3 mmHg MR max P.6 mmHg LV V1 mean P.3 mmHg MR mean nancy: 415.0 cm/sec LV V1 mean: 81.9 cm/sec MR mean P.7 mmHg LV V1 VTI: 23.6 cm MR VTI: 188.8 cm TR max nancy: 240.0 cm/sec TR max P.5 mmHg Interpretation Summary Normal LV size. Moderate concentric left ventricular hypertrophy. The estimated ejection fraction is 35 %. Moderately severe segmental systolic dysfunction (see wall motion). The left atrium is moderately enlarged. Moderate (2+) eccentric mitral valve insufficiency. Moderate (2+) tricuspid valve insufficiency. Ordering Physician: Dontrell Reeder Referring Physician: LIA Fuller M.D. Performed By: John Saha RCS
[2018-08-05] MEDS: Lactated Ringers 1,000 ML 75 ML IV ×2 (08:01→20:11)
--- NOTE | 2018-08-05 08:04 | PCM.PN.HOSP ---
Patient Problems: Active and Suspected Problems (Last Reviewed 08/03/18 @ 07:33 by Messi Hendricks MD) Acute blood loss anemia (Acute) Subjective: upset about not eating or drinking. No further hematemesis/hemoptysis. Vitals/I&O's: Vital Signs Temp Pulse Resp BP Pulse Ox 36.9 C 60 22 H 128/40 H 95 08/05/18 00:00 08/05/18 07:00 08/05/18 07:00 08/05/18 07:00 08/05/18 07:00 Oxygen Flow Rate (L/min) 3 Oxygen Delivery Method Room Air Weight: 53.9 kg Body Mass Index (BMI) 21.7 Intake and Output for Last 24 Hours 08/03/18 08/04/18 08/05/18 23:59 23:59 23:59 Intake Total 1141.7 / 1141.7 2384.5 / 2384.5 542.7 / 542.7 Output Total 375 / 375 500 / 500 Balance 1141.7 / 1141.7 2009.5 / 2008.5 42.7 / 42.7 General: Alert HEENT: Atraumatic, Normocephalic Oral: Moist Mucosa, No Gingival or Mucosal Lesions/ Ulcerations Neck: No Nodes, Thyroid Normal Size and Texture Lungs: Clear to auscultation, Normal air movement, No rhonchi, No wheeze Cardiovascular: Regular rate, Regular Rhythm, Normal S1, Normal S2 Abdomen: Bowel Sounds Present, Soft, Non Tender, Non-Distended Extremities: No edema, No Calf Tenderness Skin: No rashes, No breakdown Psych/Mental Status: Appropriate, Flat Affect Microbiology Past 72 Hours 08/03/18 06:40 Stool Stool Occult Blood (JERICA) - Final 08/03/18 02:52 Stool Stool Occult Blood (JERICA) - Final Laboratory Results 08/03/18 02:45: Crossmatch See Detail 08/03/18 02:45: Crossmatch See Detail 08/04/18 17:30: WBC 17.9 H, RBC 2.34 L, Hgb 7.4 L, Hct 23.9 L, MCV 102.1 H, MCH 31.6, MCHC 31.0 L, RDW 15.6 H, RDW Differential 57.1 H, Plt Count 278, MPV 9.8, Immature Gran % (Auto) 0.300, Neut % (Auto) 74.2 H, Lymph % (Auto) 15.8 L, [place] % (Auto) 5.5, Eos % (Auto) 3.7, Baso % (Auto) 0.5, Absolute Neuts (auto) 13.3 H, Absolute Lymphs (auto) 2.82, Total Counted Not Reportable 08/04/18 18:30: Troponin I 0.278 H 08/04/18 21:07: Troponin I 0.276 H 08/04/18 23:55: Troponin I 0.251 H 08/05/18 04:40: WBC 9.6, RBC 2.46 L, Hgb 7.6 L, Hct 24.0 L, MCV 97.6, MCH 30.9, MCHC 31.7 L, RDW 17.1 H, RDW Differential 60.4 H, Plt Count 173, MPV 9.2, Immature Gran % (Auto) 0.200, Neut % (Auto) 77.0 H, Lymph % (Auto) 15.4 L, [place] % (Auto) 6.7, Eos % (Auto) 0.4, Baso % (Auto) 0.3, Absolute Neuts (auto) 7.4, Absolute Lymphs (auto) 1.47, Total Counted Not Reportable 08/05/18 04:40: Sodium 148 H, Potassium 4.6, Chloride 116 H, Carbon Dioxide 26.0, Anion Gap 6, BUN 39 H, Creatinine 1.12 H, Estim Creat Clear Calc 31.16, Est GFR (MDRD) Af Amer 60, Est GFR (MDRD) Non-Af 50 L, BUN/Creatinine Ratio 34.8 H, Glucose 102, Calcium 8.7 Current Medications Pantoprazole Sodium 80 mg/ (Sodium Chloride) 100 mls @ 10 mls/hr CONT INF Q10H [facility] Last Admin: 08/05/18 01:39 Dose: 10 mls/hr Lactated Ringer's () 1,000 mls @ 75 mls/hr IV .[id number] JERSON Last Admin: 08/05/18 08:01 Dose: 75 mls/hr Labetalol HCl (Trandate) 10 mg IV Q4H PRN PRN PRN Reason: sbp>160 Lorazepam (Ativan) 0.5 mg PO QHS PRN PRN PRN Reason: INSOMNIA Last Admin: 08/04/18 01:16 Dose: 0.5 mg Morphine Sulfate () 2 mg IV Q2H PRN PRN PRN Reason: SEVERE PAIN (6-10/10) Ondansetron HCl (Zofran) 4 mg IV Q6H PRN PRN PRN Reason: NAUSEA/VOMITING Last Admin: 08/04/18 18:12 Dose: 4 mg Sodium Chloride () 5 - 15 ml IV UD PRN PRN Reason: SALINE FLUSH Last Admin: 08/05/18 01:39 Dose: 15 ml Medical Necessity - Tobacco Use Smoking Status: Never smoker Assessment/Plan All Active Problems (Last Reviewed 08/03/18 @ 07:33 by Messi Hendricks MD) Acute blood loss anemia (Acute) Respiratory abnormality (Acute) CAP (community acquired pneumonia) (Acute) Severe sepsis (Acute) Peripheral vascular disease (Acute) 1. GI bleed etiology unclear 2/2 duodenal ulcer on IV PPI gtt since 08/03 NPO general surgery on consult EGD on 08/04 showed duodenal ulcer with adherent clot and oozing. Injected with epinephrine. Repeat EGD 08/05 Diet per general surgery. Offered moistened swabs to the patient, but she was dismissive of that option. 2. ABLA 2/2 above monitor no need for transfusion at this time. s/p 2 units PRBCs, 3rd ordered for today. 3. CAD/PAD ASA and Plavix on hold given #1 remote stents had angioplasty of Left popliteal, tibioperoneal trunk and peroneal on 07/23/17 4. DVT proph: SCD. chemical prophylaxis is contraindicated given 1 & 2. 5. Pacemaker placed in 2016 at [facility] patient had some followup about 2 years ago. [facility] informed staff, that they will not clear her as she has not followed up with them in 2 years (though the patient states she wasn't supposed to follow up for 3 years) 6. NSTEMI: had chest pain last night after EGD (may have more due to esophageal irritation rather than cardiac chest pain) troponin peaked at 0.278 check echo may be demand ischemia due to anemia not a candidate for antiplatelets given above. Patient perseverating on ice chips. Does not seem to grasp the gravity of her situation. Code Visit Inpatient E&M: 65675 Subs Hosp L2
--- NOTE | 2018-08-05 08:13 | PN_ITS ---
Patient Problems: Active and Suspected Problems (Last Reviewed 08/03/18 @ 07:33 by Messi Hendricks MD) Acute blood loss anemia (Acute) Subjective: upset about not eating or drinking. No further hematemesis/hemoptysis. Vitals/I&O's: Vital Signs Temp Pulse Resp BP Pulse Ox 36.9 C 60 22 H 128/40 H 95 08/05/18 00:00 08/05/18 07:00 08/05/18 07:00 08/05/18 07:00 08/05/18 07:00 Oxygen Flow Rate (L/min) 3 Oxygen Delivery Method Room Air Weight: 53.9 kg Body Mass Index (BMI) 21.7 Intake and Output for Last 24 Hours 08/03/18 08/04/18 08/05/18 23:59 23:59 23:59 Intake Total 1141.7 / 1141.7 2384.5 / 2384.5 542.7 / 542.7 Output Total 375 / 375 500 / 500 Balance 1141.7 / 1141.7 2009.5 / 2008.5 42.7 / 42.7 General: Alert HEENT: Atraumatic, Normocephalic Oral: Moist Mucosa, No Gingival or Mucosal Lesions/ Ulcerations Neck: No Nodes, Thyroid Normal Size and Texture Lungs: Clear to auscultation, Normal air movement, No rhonchi, No wheeze Cardiovascular: Regular rate, Regular Rhythm, Normal S1, Normal S2 Abdomen: Bowel Sounds Present, Soft, Non Tender, Non-Distended Extremities: No edema, No Calf Tenderness Skin: No rashes, No breakdown Psych/Mental Status: Appropriate, Flat Affect Microbiology Past 72 Hours 08/03/18 06:40 Stool Stool Occult Blood (JERICA) - Final 08/03/18 02:52 Stool Stool Occult Blood (JERICA) - Final Laboratory Results 08/03/18 02:45: Crossmatch See Detail 08/03/18 02:45: Crossmatch See Detail 08/04/18 17:30: WBC 17.9 H, RBC 2.34 L, Hgb 7.4 L, Hct 23.9 L, MCV 102.1 H, MCH 31.6, MCHC 31.0 L, RDW 15.6 H, RDW Differential 57.1 H, Plt Count 278, MPV 9.8, Immature Gran % (Auto) 0.300, Neut % (Auto) 74.2 H, Lymph % (Auto) 15.8 L, [place] % (Auto) 5.5, Eos % (Auto) 3.7, Baso % (Auto) 0.5, Absolute Neuts (auto) 13.3 H, Absolute Lymphs (auto) 2.82, Total Counted Not Reportable 08/04/18 18:30: Troponin I 0.278 H 08/04/18 21:07: Troponin I 0.276 H 08/04/18 23:55: Troponin I 0.251 H 08/05/18 04:40: WBC 9.6, RBC 2.46 L, Hgb 7.6 L, Hct 24.0 L, MCV 97.6, MCH 30.9, MCHC 31.7 L, RDW 17.1 H, RDW Differential 60.4 H, Plt Count 173, MPV 9.2, Immature Gran % (Auto) 0.200, Neut % (Auto) 77.0 H, Lymph % (Auto) 15.4 L, [place] % (Auto) 6.7, Eos % (Auto) 0.4, Baso % (Auto) 0.3, Absolute Neuts (auto) 7.4, Absolute Lymphs (auto) 1.47, Total Counted Not Reportable 08/05/18 04:40: Sodium 148 H, Potassium 4.6, Chloride 116 H, Carbon Dioxide 26.0, Anion Gap 6, BUN 39 H, Creatinine 1.12 H, Estim Creat Clear Calc 31.16, Est GFR (MDRD) Af Amer 60, Est GFR (MDRD) Non-Af 50 L, BUN/Creatinine Ratio 34.8 H, Glucose 102, Calcium 8.7 Current Medications Pantoprazole Sodium 80 mg/ (Sodium Chloride) 100 mls @ 10 mls/hr CONT INF Q10H [facility] Last Admin: 08/05/18 01:39 Dose: 10 mls/hr Lactated Ringer's () 1,000 mls @ 75 mls/hr IV .[id number] JERSON Last Admin: 08/05/18 08:01 Dose: 75 mls/hr Labetalol HCl (Trandate) 10 mg IV Q4H PRN PRN PRN Reason: sbp>160 Lorazepam (Ativan) 0.5 mg PO QHS PRN PRN PRN Reason: INSOMNIA Last Admin: 08/04/18 01:16 Dose: 0.5 mg Morphine Sulfate () 2 mg IV Q2H PRN PRN PRN Reason: SEVERE PAIN (6-10/10) Ondansetron HCl (Zofran) 4 mg IV Q6H PRN PRN PRN Reason: NAUSEA/VOMITING Last Admin: 08/04/18 18:12 Dose: 4 mg Sodium Chloride () 5 - 15 ml IV UD PRN PRN Reason: SALINE FLUSH Last Admin: 08/05/18 01:39 Dose: 15 ml Medical Necessity - Tobacco Use Smoking Status: Never smoker Assessment/Plan All Active Problems (Last Reviewed 08/03/18 @ 07:33 by Messi Hendricks MD) Acute blood loss anemia (Acute) Respiratory abnormality (Acute) CAP (community acquired pneumonia) (Acute) Severe sepsis (Acute) Peripheral vascular disease (Acute) 1. GI bleed * etiology unclear 2/2 duodenal ulcer * on IV PPI gtt since 08/03 * NPO * general surgery on consult * EGD on 08/04 showed duodenal ulcer with adherent clot and oozing. Injected with epinephrine. * Repeat EGD 08/05 * Diet per general surgery. Offered moistened swabs to the patient, but she was dismissive of that option. 2. ABLA * 2/2 above * monitor * no need for transfusion at this time. * s/p 2 units PRBCs, 3rd ordered for today. 3. CAD/PAD * ASA and Plavix on hold given #1 * remote stents * had angioplasty of Left popliteal, tibioperoneal trunk and peroneal on 07/23/17 4. DVT proph: SCD. chemical prophylaxis is contraindicated given 1 & 2. 5. Pacemaker * placed in 2016 at [facility] * patient had some followup about 2 years ago. [facility] informed staff, that they will not clear her as she has not followed up with them in 2 years (though the patient states she wasn't supposed to follow up for 3 years) 6. NSTEMI: * had chest pain last night after EGD (may have more due to esophageal irritation rather than cardiac chest pain) * troponin peaked at 0.278 * check echo * may be demand ischemia due to anemia * not a candidate for antiplatelets given above. Patient perseverating on ice chips. Does not seem to grasp the gravity of her situation. Code Visit Inpatient E&M: 31583 Subs Hosp L2
--- NOTE | 2018-08-05 08:39 | CON.PCM_ITS ---
Problem List (1) Acute blood loss anemia Status: Acute (2) Arrhythmia Status: Chronic (3) COPD (chronic obstructive pulmonary disease) Status: Chronic (4) Coronary artery disease Status: Chronic (5) Peripheral arterial disease Status: Chronic Reason for Consult Date of Consultation: 08/05/18 Reason for Consultation: Acute GI bleed History of Present Illness: The patient is a 82 year old F, with past medical history listed below, who presented to [facility] on 08/03/2018 secondary to nausea, vomiting and diarrhea. This reportedly had started abruptly on the day of presentation with a large black stool. Patient had later developed a dark emesis and felt lightheaded and fell to the floor. Patient denied any true syncopal event or injury from the fall, but had complained of some abdominal pain. Patient is on aspirin and Plavix secondary to comorbidities. In the emergency room, patient received IV fluids and a CT scan of the abdomen showed diverticulosis of the colon. Patient's hemoglobin at that time was 10 and INR of 1.2. Attempts to pass an NG tube were unsuccessful. Patient was admitted to the general medical floor for evaluation. Patient does report taking Excedrin on a routine basis secondary to headache, but exact dosing is unclear. Patient was seen by surgery and there was a plan for an upper and lower endoscopy to be done on today. However, patient started to have decreased hemoglobin overnight and went for emergent evaluation. Endoscopy showed a large peptic ulcer with adherent clot and active oozing. This was injected, but oozing persisted. Patient was transferred to the intensive care unit for further monitoring. This morning, patient reports improvement in overall condition. Patient does report one episode of small melena overnight, but no chest pain is been reported. Patient has not had any fevers and is tolerating room air well. Patient has not had any hematemesis reported. Patient does have an extensive heart and kidney history. Patient reports she is been compliant with her medications. Patient was unable to quantify use of Excedrin. Past Medical History Past Medical History (Chronic Problems): Chronic Problems (Last Reviewed 08/03/18 @ 07:33 by Messi Hendricks MD) Arrhythmia (Chronic) COPD (chronic obstructive pulmonary disease) (Chronic) Coronary artery disease (Chronic) Peripheral arterial disease (Chronic) Medical History: Medical History (Last Reviewed 08/03/18 @ 07:33 by Messi Hendricks MD) Respiratory abnormality (Acute) J98.9 CAD (coronary artery disease) I25.10 History of breast cancer Z85.3 Hypothyroidism E03.9 PAD (peripheral artery disease) I73.9 Pacemaker Z95.0 COPD (chronic obstructive pulmonary disease) J44.9 HTN (hypertension) I10 Allergies acetaminophen [From Percocet] Allergy (Verified 08/03/18 02:29) Other alendronate sodium [From Fosamax] Allergy (Verified 08/03/18 02:29) Other nitrofurantoin [From Macrodantin] Allergy (Verified 08/03/18 02:29) Rash oxycodone [From Percocet] Allergy (Verified 08/03/18 02:29) Other quinapril [From Accupril] Allergy (Verified 08/03/18 02:29) Rash atorvastatin [From Lipitor] Adverse Reaction (Verified 08/03/18 02:29) Pain in joints diclofenac [From Arthrotec 50] Adverse Reaction (Verified 08/03/18 02:29) Upset Stomach misoprostol [From Arthrotec 50] Adverse Reaction (Verified 08/03/18 02:29) Upset Stomach Home Medications: Ambulatory Orders Medication Instructions Recorded Clopidogrel Bisulfate [Plavix] 75 mg PO DAILY 12/15/16 Digoxin [Lanoxin] 125 mcg PO DAILY 07/08/17 Furosemide [Lasix] 20 mg PO DAILY 07/08/17 Levothyroxine [Synthroid] 100 mcg PO DAILY 07/08/17 Lorazepam [Ativan] 0.5 mg PO QHS PRN PRN 07/08/17 Losartan Potassium 100 mg PO DAILY 07/08/17 Nitroglycerin [Nitrostat] 0.4 mg SL PRN PRN 07/08/17 Spironolactone [Aldactone] 25 mg PO DAILY 07/08/17 Aspirin/Acetaminophen/Caffeine 1 each PO Q6H PRN 08/03/18 [Headache Relief Tablet] Carvedilol [Coreg] 25 mg PO BID 08/03/18 Cholecalciferol (VIT D3) [Vitamin 2,000 unit PO DAILY 08/03/18 D] Gabapentin [Neurontin] 100 mg PO BIDCM 08/03/18 Meloxicam 15 mg PO DAILY 08/03/18 Risedronate [Actonel] 35 mg PO QWEEK 08/03/18 Surgical History: Surgical History (Last Reviewed 08/03/18 @ 07:33 by Messi Hendricks MD) History of coronary artery bypass graft x 3 Z95.1 S/P peripheral artery angioplasty with stent placement Z95.820 Status post peripheral artery angioplasty Z98.62 Lives: Spouse/ Significant Other Smoking Status: Never smoker - *Family History Maternal Family History: Family History (Last Reviewed 08/03/18 @ 07:34 by Messi Hendricks MD) Sister Breast cancer Hypertension History Items: No pertinent history Review of Systems Comment: See HPI, otherwise negative x 10 systems Patient Problems: Active and Suspected Problems (Last Reviewed 08/03/18 @ 07:33 by Messi Hendricks MD) Acute blood loss anemia (Acute) Objective: All imaging personally reviewed. Patient did receive 1 unit pRBC between last H/H. - Physical Exam General: Alert, Oriented x3, Cooperative, No apparent distress, - - Appears stated age. No conversational dyspnea. HEENT: Atraumatic, PERRLA, EOMI, Normocephalic, - - No scleral icterus or injection Oral: No Gingival or Mucosal Lesions/ Ulcerations, Dry Mucosa Neck: Supple, No JVD, No Nodes, Trachea Midline Lungs: Clear to auscultation, Normal air movement, No rhonchi, No wheeze, No rales Cardiovascular: Regular rate, Regular Rhythm, Normal S1, Normal S2, No murmurs, No rub noted, No Gallop, - - Paced on telemetry Abdomen: Bowel Sounds Present, Soft, Non Tender, Non-Distended Extremities: No clubbing, No cyanosis, No edema, Capillary Refill Less than 3 Seconds Skin: No rashes, No breakdown Musculoskeletal: No Tenderness to Palpation of Joints or Extremities Lymphatic: No Cervical, Supraclavicular, or Inguinal Adenopathy Neurological: Cranial nerves II-XII grossly intact, Deep Tendon Reflexes 2+/4 and Symmetrical, Motor Exam 5/5 strength throughout Psych/Mental Status: Alert and oriented to time, place, person, mood and affect Vital Signs Temp Pulse Resp BP Pulse Ox 36.9 C 62 20 H 121/46 H 97 08/05/18 00:00 08/05/18 08:00 08/05/18 08:00 08/05/18 08:00 08/05/18 08:00 Oxygen Flow Rate (L/min) 3 Oxygen Delivery Method Room Air Weight: 53.9 kg Body Mass Index (BMI) 21.7 Intake and Output for Last 24 Hours 08/03/18 08/04/18 08/05/18 23:59 23:59 23:59 Intake Total 1141.7 / 1141.7 2384.5 / 2384.5 542.7 / 542.7 Output Total 375 / 375 500 / 500 Balance 1141.7 / 1141.7 2009.5 / 2009.5 42.7 / 42.7 Microbiology Past 72 Hours 08/03/18 06:40 Stool Occult Blood (JERICA) - Final Stool 08/03/18 02:52 Stool Occult Blood (JERICA) - Final Stool Laboratory Tests Past 24 Hrs 08/03/18 08/03/18 08/04/18 02:45 02:45 17:30 WBC 17.9 H RBC 2.34 L Hgb 7.4 L Hct 23.9 L MCV 102.1 H MCH 31.6 MCHC 31.0 L RDW 15.6 H RDW Differential 57.1 H Plt Count 278 MPV 9.8 Immature Gran % (Auto) 0.300 Neut % (Auto) 74.2 H Lymph % (Auto) 15.8 L [place] % (Auto) 5.5 Eos % (Auto) 3.7 Baso % (Auto) 0.5 Absolute Neuts (auto) 13.3 H Absolute Lymphs (auto) 2.82 Total Counted Not Reportable Sodium Potassium Chloride Carbon Dioxide Anion Gap BUN Creatinine Estim Creat Clear Calc Est GFR (MDRD) Af Amer Est GFR (MDRD) Non-Af BUN/Creatinine Ratio Glucose Calcium Troponin I Crossmatch See Detail See Detail 08/04/18 08/04/18 08/04/18 18:30 21:07 23:55 WBC RBC Hgb Hct MCV MCH MCHC RDW RDW Differential Plt Count MPV Immature Gran % (Auto) Neut % (Auto) Lymph % (Auto) [place] % (Auto) Eos % (Auto) Baso % (Auto) Absolute Neuts (auto) Absolute Lymphs (auto) Total Counted Sodium Potassium Chloride Carbon Dioxide Anion Gap BUN Creatinine Estim Creat Clear Calc Est GFR (MDRD) Af Amer Est GFR (MDRD) Non-Af BUN/Creatinine Ratio Glucose Calcium Troponin I 0.278 H 0.276 H 0.251 H Crossmatch 08/05/18 08/05/18 04:40 04:40 WBC 9.6 RBC 2.46 L Hgb 7.6 L Hct 24.0 L MCV 97.6 MCH 30.9 MCHC 31.7 L RDW 17.1 H RDW Differential 60.4 H Plt Count 173 MPV 9.2 Immature Gran % (Auto) 0.200 Neut % (Auto) 77.0 H Lymph % (Auto) 15.4 L [place] % (Auto) 6.7 Eos % (Auto) 0.4 Baso % (Auto) 0.3 Absolute Neuts (auto) 7.4 Absolute Lymphs (auto) 1.47 Total Counted Not Reportable Sodium 148 H Potassium 4.6 Chloride 116 H Carbon Dioxide 26.0 Anion Gap 6 BUN 39 H Creatinine 1.12 H Estim Creat Clear Calc 31.16 Est GFR (MDRD) Af Amer 60 Est GFR (MDRD) Non-Af 50 L BUN/Creatinine Ratio 34.8 H Glucose 102 Calcium 8.7 Troponin I Crossmatch Clinical Impression(s) from Imaging Studies Abdomen/Pelvis CT 08/03/18 02:45 IMPRESSION: 1. Diverticulosis coli. No diverticulitis or other colitis identified. 2. Cardiomegaly with permanent transvenous pacemaker in place. 3. Chronic findings include atrophic right kidney, small hiatal hernia, and atherosclerotic, ectatic aorta. Individualized dose optimization techniques were used for this CT. at 0451 Reported and signed by: Brant Hatfield MD Electronically Signed: Brant Hatfield, at 4:49 EST Tel , Service support , Assessment/Plan Active and Suspected Problems (Last Reviewed 08/03/18 @ 07:33 by Messi Hendricks MD) Acute blood loss anemia (Acute) RECOMMENDATIONS: 1. Transfuse 1 unit pRBCs 2. Transition IVF to LR 3. Repeat endoscopy per surgery 4. Continue baseline medications IMPRESSIONS: 1. Acute blood loss anemia secondary to acute upper GI bleed with peptic ulcer and adherent clot Patient reportedly continued to have oozing despite injection yesterday during EGD. Tentative plan is to for a repeat evaluation later today. Patient is not having any significant melena at this time, but given relative small increment after blood transfusion, will give an additional unit with a goal hemoglobin greater than 8 while acute bleeding is a possibility. 2. Hypernatremia/hyperchloremia Please secondary to resuscitative efforts. Patient will be switched to lactated Ringer's for volume. Patient would benefit from increased free water, but currently is n.p.o. If patient remains n.p.o., transition to D5 half-normal saline may be indicated. 3. CAD/PAD/pacemaker/elevated troponins/advanced age Complicates care, management, recovery and prognosis. Patient's aspirin and Plavix on hold secondary to acute GI bleed. Patient does have a remote history of stents in the past. Elevation of troponin may be secondary to #1. Patient is not a candidate for acute intervention at this time. Echocardiogram has been ordered. Code Visit Inpatient E&M: 49466 Init Hosp L3
[2018-08-05 13:51] LABS: Hematocrit 30.4 % (37-47); Hemoglobin 9.6 g/dl (12.0-15.0)
--- NOTE | 2018-08-05 15:05 | NURSING ---
Patient off floor for EGD
--- NOTE | 2018-08-05 15:24 | OP.ENDO_ITS ---
Patient Name: Andressa Connolly Procedure Date: 08/05/2018 3:03 PM Date of : 1935 Age: 82 Procedure: Upper GI endoscopy Indications: Surveillance procedure, Follow-up of acute duodenal ulcer with hemorrhage Providers: Ciera Bazan MD Medicines: See the Anesthesia note for documentation of the administered medications Patient Profile: Refer to note in patient chart for documentation of history and physical. Complications: No immediate complications. Procedure: Pre-Anesthesia Assessment: - After reviewing the risks and benefits, the patient was deemed in satisfactory condition to undergo the procedure. - Using IV propofol under the supervision of an guest experience captain was determined to be medically necessary for this procedure based on review of the patient's medical history, medications, and prior anesthesia history. After obtaining informed consent, the endoscope was passed under direct vision. Throughout the procedure, the patient's blood pressure, pulse, and oxygen saturations were monitored continuously. The gastroscope was introduced through the mouth, and advanced to the duodenal bulb. The upper GI endoscopy was accomplished without difficulty. The patient tolerated the procedure well. Scope In: 3:16:30 PM Scope Out: 3:17:37 PM Total Procedure Duration Time 0 hours 1 minute 7 seconds Findings: One non-bleeding cratered duodenal ulcer with no stigmata of bleeding was found in the duodenal bulb, healed over. The lesion was 5 mm in largest dimension. Impression: - One non-bleeding duodenal ulcer with no stigmata of bleeding. - No specimens collected. Recommendation: - No aspirin, ibuprofen, naproxen, or other non-steroidal anti-inflammatory drugs. Procedure Code(s): --- Professional --- 83351, Esophagogastroduodenoscopy, flexible, transoral; diagnostic, including collection of specimen(s) by brushing or washing, when performed (separate procedure) Diagnosis Code(s): --- Professional --- K26.9, Duodenal ulcer, unspecified as acute or chronic, without hemorrhage or perforation K26.0, Acute duodenal ulcer with hemorrhage CPT copyright 2017 [employer]. All rights reserved. The codes documented in this report are preliminary and upon facility sales and admin review may be revised to meet current compliance requirements. MD Ciera Zimmerman MD 08/05/2018 3:23:51 PM This report has been signed electronically. Number of Addenda: 0 Note Initiated On: 08/05/2018 3:03 PM
[2018-08-05] MEDS: LORazepam 0.5 MG Tablet PO (20:16)
[2018-08-06] VITALS (14 sets, daily range): BP systolic 126–169; BP diastolic 56–96; PULSE 59–67; RESP 16–26; TEMP 36.7–37.1; O2SAT 90–99
[2018-08-06] MEDS: BENZOCAINE/MENTHOL 1 LOZENGE MUCOUS MEM (00:57)
[2018-08-06 05:14] LABS: Absolute Lymphocyte Count 2.31 X10^3/ul (0.83-4.51); Absolute Neutrophil Count 6.9 X10^3/uL (2.0-7.7); Basophil# 0.03 X10^3/uL; Basophil% 0.3 % (0-1); Eosinophil# 0.45 X10^3/uL; Eosinophils% 4.3 % (0-5); Hematocrit 30.6 % (37-47); Hemoglobin 9.7 g/dl (12.0-15.0); Lymphocyte # 2.31 X10^3/ul (4.0); Lymphocyte % 21.9 % (19-41); Mean Corp Hgb Conc 31.7 g/gl (32-36); Mean Corpuscular Hgb 30.6 pg (27.0-32.0); Mean Corpuscular Volume 96.5 fL (81-99); Mean Platelet Vol. 9.9 fl (6.2-12.0); Monocyte# 0.78 X10^3/uL; Monocyte% 7.4 % (0-10); Neutrophil # 6.93 X10^3/uL (2.7-7.7); Neutrophil % 65.8 % (47-70); POSITIVE COUNT NO; POSITIVE DIFFERENTIAL NO; POSITIVE MORPHOLOGY NO; Platelet Count 205 K/mm3 (150-450); RBC Distribution Width CV 17.1 % (11.6-14.6); RBC Distribution Width SD 58.7 fl (35.1-43.9); Red Blood Count 3.17 M/mm3 (4.2-5.4); White Blood Count 10.5 K/mm3 (4.4-11.0)
[2018-08-06 05:24] LABS: Anion Gap 6 (5-15); BUN 26 mg/dL (7-18); BUN/Creat Ratio 22.4 RATIO (10-20); Calcium,Total 9.2 mg/dL (8.5-10.1); Chloride 113 mmol/L (98-107); Creatinine, Serum 1.16 mg/dL (0.55-1.02); EST Glomerular Filtration Rate 48 mL/min (>60); Est Glom Filt Rate - Afr Amer 58 mL/min (>60); Glucose 89 mg/dL (74-106); Potassium 4.1 mmol/L (3.5-5.1); Sodium Level 146 mmol/L (136-145)
[2018-08-06] MEDS: Morphine 2 MG/ML Syringe IV (05:33)
[2018-08-06] MEDS: 0.9% NaCl Peripheral Flush Adult/Peds IV ×2 (05:34→08:44)
--- NOTE | 2018-08-06 06:53 | PN_ITS ---
Subjective: Patient did well overnight. No acute issues were reported outside of some palpitations and headache. This was treated with morphine with good effect. Patient's blood pressure has been trending up. Patient has tolerated clear liquids without difficulty and has ordered a breakfast. Objective: Patient with repeat upper GI evaluation yesterday. Nonbleeding ulcer was noted in the duodenum. No further oozing or clot appreciated. Echocardiogram shows an EF of 35% with left atrium moderately enlarged and moderate mitral valve insufficiency. General: Alert, Oriented x3, Cooperative, No apparent distress, - - Speaking in full sentences. No conversational dyspnea noted. HEENT: Atraumatic, PERRLA, EOMI, Normocephalic, - - No scleral icterus or injection noted. Oral: Moist Mucosa, No Gingival or Mucosal Lesions/ Ulcerations Neck: Supple, No JVD, No Nodes, Trachea Midline Lungs: Clear to auscultation, Normal air movement, No rhonchi, No wheeze, No rales Cardiovascular: Regular rate, Regular Rhythm, Normal S1, Normal S2, Murmur, No rub noted, No Gallop, - - Paced rhythm noted on telemetry Abdomen: Bowel Sounds Present, Soft, Non Tender, Non-Distended Extremities: No clubbing, No cyanosis, No edema, Capillary Refill Less than 3 Seconds Skin: No rashes, No breakdown Musculoskeletal: No Tenderness to Palpation of Joints or Extremities Lymphatic: No Cervical, Supraclavicular, or Inguinal Adenopathy Neurological: Cranial nerves II-XII grossly intact, Neuro grossly intact, Motor Exam 5/5 strength throughout Psych/Mental Status: Alert and oriented to time, place, person, mood and affect Vital Signs Temp Pulse Resp BP Pulse Ox 36.9 C 60 22 H 169/78 H 91 08/06/18 04:00 08/06/18 06:00 08/06/18 06:00 08/06/18 06:00 08/06/18 06:00 Oxygen Flow Rate (L/min) 2 Oxygen Delivery Method Room Air Weight: 53.9 kg Body Mass Index (BMI) 21.9 Intake and Output for Last 24 Hours 08/04/18 08/05/18 08/06/18 23:59 23:59 23:59 Intake Total 2384.5 / 2384.5 3090.2 / 3090.2 893 / 893 Output Total 375 / 375 1650 / 1650 500 / 500 Balance 2009.5 / 2009.5 1440.2 / 1440.2 393 / 393 Labs (Last 48 Hours) 08/03/18 08/03/18 08/04/18 02:45 02:45 17:30 WBC 17.9 H RBC 2.34 L Hgb 7.4 L Hct 23.9 L MCV 102.1 H MCH 31.6 MCHC 31.0 L RDW 15.6 H RDW Differential 57.1 H Plt Count 278 MPV 9.8 Immature Gran % (Auto) 0.300 Neut % (Auto) 74.2 H Lymph % (Auto) 15.8 L [place] % (Auto) 5.5 Eos % (Auto) 3.7 Baso % (Auto) 0.5 Absolute Neuts (auto) 13.3 H Absolute Lymphs (auto) 2.82 Total Counted Not Reportable Sodium Potassium Chloride Carbon Dioxide Anion Gap BUN Creatinine Estim Creat Clear Calc Est GFR (MDRD) Af Amer Est GFR (MDRD) Non-Af BUN/Creatinine Ratio Glucose Calcium Troponin I Crossmatch See Detail See Detail 08/04/18 08/04/18 08/04/18 18:30 21:07 23:55 WBC RBC Hgb Hct MCV MCH MCHC RDW RDW Differential Plt Count MPV Immature Gran % (Auto) Neut % (Auto) Lymph % (Auto) [place] % (Auto) Eos % (Auto) Baso % (Auto) Absolute Neuts (auto) Absolute Lymphs (auto) Total Counted Sodium Potassium Chloride Carbon Dioxide Anion Gap BUN Creatinine Estim Creat Clear Calc Est GFR (MDRD) Af Amer Est GFR (MDRD) Non-Af BUN/Creatinine Ratio Glucose Calcium Troponin I 0.278 H 0.276 H 0.251 H Crossmatch 08/05/18 08/05/18 08/05/18 04:40 04:40 13:40 WBC 9.6 RBC 2.46 L Hgb 7.6 L 9.6 L Hct 24.0 L 30.4 L MCV 97.6 MCH 30.9 MCHC 31.7 L RDW 17.1 H RDW Differential 60.4 H Plt Count 173 MPV 9.2 Immature Gran % (Auto) 0.200 Neut % (Auto) 77.0 H Lymph % (Auto) 15.4 L [place] % (Auto) 6.7 Eos % (Auto) 0.4 Baso % (Auto) 0.3 Absolute Neuts (auto) 7.4 Absolute Lymphs (auto) 1.47 Total Counted Not Reportable Sodium 148 H Potassium 4.6 Chloride 116 H Carbon Dioxide 26.0 Anion Gap 6 BUN 39 H Creatinine 1.12 H Estim Creat Clear Calc 31.16 Est GFR (MDRD) Af Amer 60 Est GFR (MDRD) Non-Af 50 L BUN/Creatinine Ratio 34.8 H Glucose 102 Calcium 8.7 Troponin I Crossmatch 08/06/18 08/06/18 04:55 04:55 WBC 10.5 RBC 3.17 L Hgb 9.7 L Hct 30.6 L MCV 96.5 MCH 30.6 MCHC 31.7 L RDW 17.1 H RDW Differential 58.7 H Plt Count 205 MPV 9.9 Immature Gran % (Auto) 0.300 Neut % (Auto) 65.8 Lymph % (Auto) 21.9 [place] % (Auto) 7.4 Eos % (Auto) 4.3 Baso % (Auto) 0.3 Absolute Neuts (auto) 6.9 Absolute Lymphs (auto) 2.31 Total Counted Not Reportable Sodium 146 H Potassium 4.1 Chloride 113 H Carbon Dioxide 27.0 Anion Gap 6 BUN 26 H Creatinine 1.16 H Estim Creat Clear Calc 28.70 Est GFR (MDRD) Af Amer 58 L Est GFR (MDRD) Non-Af 48 L BUN/Creatinine Ratio 22.4 H Glucose 89 Calcium 9.2 Troponin I Crossmatch Medical Necessity - Tobacco Use Smoking Status: Never smoker Assessment/Plan All Active Problems (Last Reviewed 08/03/18 @ 07:33 by Messi Hendricks MD) Acute blood loss anemia (Acute) Respiratory abnormality (Acute) CAP (community acquired pneumonia) (Acute) Severe sepsis (Acute) Peripheral vascular disease (Acute) RECOMMENDATIONS: 1. Transition to p.o. Protonix 2. Add home blood pressure meds back in a stepwise fashion 3. Discontinue IV fluids 4. Okay to transfer from the intensive care unit from my perspective IMPRESSIONS: 1. Acute blood loss anemia secondary to acute upper GI bleed with peptic ulcer and adherent clot Repeat EGD shows no further bleeding. Shallow ulcer was appreciated and healing well. Patient will be transition to Protonix twice daily. Advance diet per surgery recommendations. No indication for repeat transfusion. 2. Hypernatremia/hyperchloremia Likely secondary to resuscitative efforts. Patient appears to be volume repleted at this time. Will discontinue IV fluids given patient's history of congestive heart failure. Anticipate improvement with free water administration p.o. 3. CAD/PAD/pacemaker/elevated troponins/advanced age/chronic systolic congestive heart failure Complicates care, management, recovery and prognosis. Patient's aspirin and Plavix on hold secondary to acute GI bleed. Patient does have a remote history of stents in the past. Elevation of troponin may be secondary to #1. Patient is not a candidate for acute intervention at this time. Echocardiogram shows an EF of 35% with moderate mitral insufficiency Code Visit Inpatient E&M: 74312 [facility] Hosp L3
--- NOTE | 2018-08-06 07:38 | PN_ITS ---
Patient Problems: Active and Suspected Problems (Last Reviewed 08/03/18 @ 07:33 by Messi Hendricks MD) Acute blood loss anemia (Acute) Subjective: Patient is an 82-year-old female with a past medical history of coronary artery disease, CABG, PVD, acquired hypothyroidism, pacemaker implantation, heart failure, hypertension and COPD who presented to the emergency department at [facility] on 08/03/2018 with complaints of melena, hematochezia and coffee-ground emesis. EGD was performed on 08/04/2018 and revealed a large duodenal ulcer with adherent clot and a small amount of oozing. It was injected with epinephrine. Repeat EGD on 08/05/2018 did not show any bleeding. Diet has been advanced Blood pressures have been trending up and the current BP is 169/78. Pulse rate is in the 60s. She is 91-93% saturated on room air and this is declining Fluid balance is +4984 since admission. All lab was personally reviewed. Hemoglobin is 9.7 today and stable. Creatinine is stable at 1.16 down from 1.3 to admission. Echocardiogram done this admission shows moderate LVH, decreased EF of 35% with moderately severe segmental systolic dysfunction, left atrial enlargement, 2+ MR and 2+ TR. she tolerated a full liquid diet today without abd pain, nausea or vomiting. denies SOB. She is sitting in a chair and appears in no distress - Physical Exam General: Alert, Oriented x3, Cooperative, No apparent distress HEENT: PERRLA, EOMI Oral: Moist Mucosa Neck: Supple Lungs: Clear to auscultation, Diminished Cardiovascular: Regular rate, Regular Rhythm, Normal S1, Normal S2, No Gallop Abdomen: Bowel Sounds Present - not hyperactive, Soft, Non-Distended Extremities: No cyanosis, Edema - 1+ Skin: No rashes, No breakdown Neurological: Cranial nerves II-XII grossly intact, Neuro grossly intact Psych/Mental Status: Normal Affect, Appropriate Vital Signs Temp Pulse Resp BP Pulse Ox 98.4 F 60 22 H 169/78 H 93 08/06/18 04:00 08/06/18 06:00 08/06/18 06:00 08/06/18 06:00 08/06/18 06:45 Oxygen Flow Rate (L/min) 2 Oxygen Delivery Method Room Air Weight: 118 lb 13.266 oz Body Mass Index (BMI) 21.9 Intake and Output for Last 24 Hours 08/04/18 08/05/18 08/06/18 23:59 23:59 23:59 Intake Total 2384.5 / 2384.5 3090.2 / 3090.2 893 / 893 Output Total 375 / 375 1650 / 1650 500 / 500 Balance 2009.5 / 2009.5 1440.2 / 1440.2 393 / 393 Microbiology Past 72 Hours 08/03/18 06:40 Stool Occult Blood (JERICA) - Final Stool 08/03/18 02:52 Stool Occult Blood (JERICA) - Final Stool Laboratory Tests Past 24 Hrs 08/03/18 08/05/18 08/06/18 02:45 13:40 04:55 WBC 10.5 RBC 3.17 L Hgb 9.6 L 9.7 L Hct 30.4 L 30.6 L MCV 96.5 MCH 30.6 MCHC 31.7 L RDW 17.1 H RDW Differential 58.7 H Plt Count 205 MPV 9.9 Immature Gran % (Auto) 0.300 Neut % (Auto) 65.8 Lymph % (Auto) 21.9 [place] % (Auto) 7.4 Eos % (Auto) 4.3 Baso % (Auto) 0.3 Absolute Neuts (auto) 6.9 Absolute Lymphs (auto) 2.31 Total Counted Not Reportable Sodium Potassium Chloride Carbon Dioxide Anion Gap BUN Creatinine Estim Creat Clear Calc Est GFR (MDRD) Af Amer Est GFR (MDRD) Non-Af BUN/Creatinine Ratio Glucose Calcium Crossmatch See Detail 08/06/18 04:55 WBC RBC Hgb Hct MCV MCH MCHC RDW RDW Differential Plt Count MPV Immature Gran % (Auto) Neut % (Auto) Lymph % (Auto) [place] % (Auto) Eos % (Auto) Baso % (Auto) Absolute Neuts (auto) Absolute Lymphs (auto) Total Counted Sodium 146 H Potassium 4.1 Chloride 113 H Carbon Dioxide 27.0 Anion Gap 6 BUN 26 H Creatinine 1.16 H Estim Creat Clear Calc 28.70 Est GFR (MDRD) Af Amer 58 L Est GFR (MDRD) Non-Af 48 L BUN/Creatinine Ratio 22.4 H Glucose 89 Calcium 9.2 Crossmatch Medical Necessity - Tobacco Use Smoking Status: Never smoker Assessment/Plan All Active Problems (Last Reviewed 08/03/18 @ 07:33 by Messi Hendricks MD) Acute blood loss anemia (Acute) Respiratory abnormality (Acute) CAP (community acquired pneumonia) (Acute) Severe sepsis (Acute) Peripheral vascular disease (Acute) Impressions 1. UGI bleed due to PUD with duodenal Ulcer 2. anemia due to acute bleeding - transfused with 3 units PRBC's and the HGB is stable 3. LV dysfunction with a 35% EF 4. BARTH's - takes 2-3 Excedrin every day.....tells me that Tylenol does not work for her 5. CAD 6. PVD 7. HTN 8. COPD 9. increased kyphosis 10. Hypothyroidism - had thyroidectomy for goiter 11. 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 Schwartz - may need to restart the Lasix but, lungs are CTA right now and may wait until tomorrow Transfer to [place] Pt seems confused about her medications - she fills her own pill boxes and she has taken some of the meds out of the original bottles and has placed them in other bottles and changes the time she takes them....she refused home health to help with organizing her medications PT/OT If the HH remains stable will likely DC in the next 24-48 hours Code Visit Inpatient E&M: 73947 Init Hosp L2
--- NOTE | 2018-08-06 07:49 | PCM.PN.SRG ---
Patient Problems: Active and Suspected Problems (Last Reviewed 08/03/18 @ 07:33 by Messi Hendricks MD) Acute blood loss anemia (Acute) Subjective: feeling of chest palpitations, no abdominal pain or melena-brown stools - Physical Exam General: Alert, Oriented x3, Cooperative Lungs: Diminished Cardiovascular: Regular rate Abdomen: Bowel Sounds Present, Soft, Non Tender Vital Signs Temp Pulse Resp BP Pulse Ox 98.4 F 60 22 H 169/78 H 93 08/06/18 04:00 08/06/18 06:00 08/06/18 06:00 08/06/18 06:00 08/06/18 06:45 Oxygen Flow Rate (L/min) 2 Oxygen Delivery Method Room Air Weight: 53.9 kg Body Mass Index (BMI) 21.9 Intake and Output for Last 24 Hours 08/04/18 08/05/18 08/06/18 23:59 23:59 23:59 Intake Total 2384.5 / 2384.5 3090.2 / 3090.2 893 / 893 Output Total 375 / 375 1650 / 1650 500 / 500 Balance 2009.5 / 2009.5 1440.2 / 1440.2 393 / 393 Microbiology Past 72 Hours 08/03/18 06:40 Stool Occult Blood (JERICA) - Final Stool 08/03/18 02:52 Stool Occult Blood (JERICA) - Final Stool Laboratory Tests Past 24 Hrs 08/03/18 08/05/18 08/06/18 02:45 13:40 04:55 WBC 10.5 RBC 3.17 L Hgb 9.6 L 9.7 L Hct 30.4 L 30.6 L MCV 96.5 MCH 30.6 MCHC 31.7 L RDW 17.1 H RDW Differential 58.7 H Plt Count 205 MPV 9.9 Immature Gran % (Auto) 0.300 Neut % (Auto) 65.8 Lymph % (Auto) 21.9 [place] % (Auto) 7.4 Eos % (Auto) 4.3 Baso % (Auto) 0.3 Absolute Neuts (auto) 6.9 Absolute Lymphs (auto) 2.31 Total Counted Not Reportable Sodium Potassium Chloride Carbon Dioxide Anion Gap BUN Creatinine Estim Creat Clear Calc Est GFR (MDRD) Af Amer Est GFR (MDRD) Non-Af BUN/Creatinine Ratio Glucose Calcium Crossmatch See Detail 08/06/18 04:55 WBC RBC Hgb Hct MCV MCH MCHC RDW RDW Differential Plt Count MPV Immature Gran % (Auto) Neut % (Auto) Lymph % (Auto) [place] % (Auto) Eos % (Auto) Baso % (Auto) Absolute Neuts (auto) Absolute Lymphs (auto) Total Counted Sodium 146 H Potassium 4.1 Chloride 113 H Carbon Dioxide 27.0 Anion Gap 6 BUN 26 H Creatinine 1.16 H Estim Creat Clear Calc 28.70 Est GFR (MDRD) Af Amer 58 L Est GFR (MDRD) Non-Af 48 L BUN/Creatinine Ratio 22.4 H Glucose 89 Calcium 9.2 Crossmatch Medical Necessity - Tobacco Use Smoking Status: Never smoker Assessment/Plan All Active Problems (Last Reviewed 08/03/18 @ 07:33 by Messi Hendricks MD) Acute blood loss anemia (Acute) Respiratory abnormality (Acute) CAP (community acquired pneumonia) (Acute) Severe sepsis (Acute) Peripheral vascular disease (Acute) Bleeding duodenal ulcer - stable patient presented with hematemesis, melena and anemia.underwent EGD on August 04 which demonstrated a duodenal ulcer with adherent red clot and still oozing which was treated with epinephrine injection. She underwent repeat upper endoscopy on August 05 which demonstrated the ulcer to now have no further oozing and in the early stages of healing. patient currently denies any abdominal pain, melena. She is hungry and wants food. I'm comfortable with her diet advancing. Cardiac and pulmonary issues noted as above. Patient with a paced rhythm. Complaining of a feeling of chest palpitations but patient's paced rhythm was stable throughout. Elevated troponins noted. Managed by medicine and critical care.
--- NOTE | 2018-08-06 09:20 | CM.UR ---
Addendum entered by Zaida Avelar 08/06/18 10:54: spoke individually with patient about home care however she declined c. States she had it once before. States she is independent with her medications and doesn't need any help. States she changed some of her medications around on her own. instructed if she changes her mind to let us know. Verb understanding. Michelle Avelar RN, CCM. Original Note: Participated in interdisciplinary rounds. discussed possible home health care. explained the benefits and what home snf and physical therapy could assist her with. diet was advanced and currently on full liquids. Plan is to transfer to [facility] today. Michelle Avelar RN, CCM.
[2018-08-06] MEDS: Carvedilol 12.5 MG Tablet PO ×2 (10:54→21:44)
[2018-08-06] MEDS: Pantoprazole Sodium 40 MG Tablet PO ×2 (10:54→21:44)
[2018-08-06] MEDS: Losartan Potassium 100 MG Tablet PO (10:54)
--- NOTE | 2018-08-06 14:36 | NURSING ---
report called to [facility] RN.
--- NOTE | 2018-08-06 14:36 | NURSING ---
to [id number] per WC. ICU HEAD CUSTODIAN in attendance
[2018-08-06] MEDS: LORazepam 0.5 MG Tablet PO (21:44)
[2018-08-07 02:20] VITALS: BP 138/60; PULSE 60; RESP 16; TEMP 37; O2SAT 92
[2018-08-07 06:46] LABS: Hematocrit 27.3 % (37-47); Hemoglobin 8.5 g/dl (12.0-15.0); Mean Corp Hgb Conc 31.1 g/gl (32-36); Mean Corpuscular Hgb 31.3 pg (27.0-32.0); Mean Corpuscular Volume 100.4 fL (81-99); Mean Platelet Vol. 10.7 fl (6.2-12.0); Platelet Count 198 K/mm3 (150-450); RBC Distribution Width CV 16.5 % (11.6-14.6); RBC Distribution Width SD 54.1 fl (35.1-43.9); Red Blood Count 2.72 M/mm3 (4.2-5.4); White Blood Count 8.1 K/mm3 (4.4-11.0)
[2018-08-07 06:51] LABS: Anion Gap 6 (5-15); BUN 18 mg/dL (7-18); BUN/Creat Ratio 17.3 RATIO (10-20); Calcium,Total 8.6 mg/dL (8.5-10.1); Chloride 111 mmol/L (98-107); Creatinine, Serum 1.04 mg/dL (0.55-1.02); EST Glomerular Filtration Rate 54 mL/min (>60); Est Glom Filt Rate - Afr Amer 65 mL/min (>60); Estimated Creatinine Clearance 32.01 ml/min; Glucose 88 mg/dL (74-106); Magnesium 1.6 mg/dL (1.6-2.6); Phosphorus 1.9 mg/dL (2.5-4.9); Potassium 3.8 mmol/L (3.5-5.1); Scan Indicated on CBC? Y/N NO; Sodium Level 144 mmol/L (136-145)
--- NOTE | 2018-08-07 09:06 | NURSING ---
ASking for pain medication. This is my worst day for pain. Pain began when she got up to walk with therapy. States its in her Lt calf down to her toes. + Jailene sign. Will text Hospitalist.
--- NOTE | 2018-08-07 09:09 | PCA ---
rn in with pt
[2018-08-07] MEDS: Morphine 2 MG/ML Syringe IV ×2 (09:12→22:40)
[2018-08-07] MEDS: 0.9% NaCl Peripheral Flush Adult/Peds IV ×2 (09:13→21:25)
[2018-08-07 09:16] VITALS: BP 132/51; PULSE 63; RESP 18; TEMP 36.7; O2SAT 97
--- NOTE | 2018-08-07 09:26 | PCM.PROGNOTE ---
Patient Problems: Active and Suspected Problems (Last Reviewed 08/03/18 @ 07:33 by Messi Hendricks MD) Acute blood loss anemia (Acute) Subjective: Patient transferred out of the intensive care unit yesterday. Patient does report various body aches and lower extremity edema, but has had no bowel movements since transfer. Patient remains on room air. No hemodynamic instability is been reported. - Physical Exam General: Alert, Oriented x3, Cooperative, No apparent distress, - - Slightly anxious, but no conversational dyspnea appreciated. HEENT: Atraumatic, PERRLA, EOMI, Normocephalic, - - No scleral icterus or injection noted. Oral: Moist Mucosa, No Gingival or Mucosal Lesions/ Ulcerations Neck: Supple, No JVD, No Nodes, Trachea Midline Lungs: Clear to auscultation, Normal air movement, No rhonchi, No wheeze, No rales Cardiovascular: Regular rate, Regular Rhythm, Normal S1, Normal S2, No murmurs, No rub noted, No Gallop Abdomen: Bowel Sounds Present, Soft, Non Tender, Non-Distended Extremities: No clubbing, No cyanosis, Edema - Trace lower extremity Skin: No rashes, No breakdown Musculoskeletal: No Tenderness to Palpation of Joints or Extremities Lymphatic: No Cervical, Supraclavicular, or Inguinal Adenopathy Neurological: Cranial nerves II-XII grossly intact, Neuro grossly intact, Motor Exam 5/5 strength throughout Psych/Mental Status: Appropriate, Anxious Vital Signs Temp Pulse Resp BP Pulse Ox 36.7 C 63 18 132/51 H 97 08/07/18 09:16 08/07/18 09:16 08/07/18 09:16 08/07/18 09:16 08/07/18 09:16 Oxygen Flow Rate (L/min) 2 Oxygen Delivery Method Room Air Weight: 53.9 kg Body Mass Index (BMI) 21.9 Intake and Output for Last 24 Hours 08/05/18 08/06/18 08/07/18 23:59 23:59 23:59 Intake Total 3090.2 / 3090.2 1511 / 1511 400 / 400 Output Total 1650 / 1650 500 / 500 175 / 175 Balance 1440.2 / 1440.2 1011 / 1011 225 / 225 Laboratory Tests Past 24 Hrs 08/07/18 08/07/18 05:45 05:45 WBC 8.1 RBC 2.72 L Hgb 8.5 L Hct 27.3 L MCV 100.4 H MCH 31.3 MCHC 31.1 L RDW 16.5 H RDW Differential 54.1 H Plt Count 198 MPV 10.7 Sodium 144 Potassium 3.8 Chloride 111 H Carbon Dioxide 27.0 Anion Gap 6 BUN 18 Creatinine 1.04 H Estim Creat Clear Calc 32.01 Est GFR (MDRD) Af Amer 65 Est GFR (MDRD) Non-Af 54 L BUN/Creatinine Ratio 17.3 Glucose 88 Calcium 8.6 Phosphorus 1.9 L Magnesium 1.6 Medical Necessity - Tobacco Use Smoking Status: Never smoker Assessment/Plan All Active Problems (Last Reviewed 08/03/18 @ 07:33 by Messi Hendricks MD) Acute blood loss anemia (Acute) Respiratory abnormality (Acute) CAP (community acquired pneumonia) (Acute) Severe sepsis (Acute) Peripheral vascular disease (Acute) RECOMMENDATIONS: 1. Continue p.o. Protonix 2. Add home blood pressure meds back in a stepwise fashion 3. Consider reinitiation of Lasix therapy 4. Hemodynamically stable on room air. Will sign off from a critical care perspective IMPRESSIONS: 1. Acute blood loss anemia secondary to acute upper GI bleed with peptic ulcer and adherent clot Repeat EGD shows no further bleeding. Shallow ulcer was appreciated and healing well. Patient tolerating p.o. Protonix well. Advance diet per surgery recommendations. No indication for repeat transfusion. 2. Hypernatremia/hyperchloremia Improving. Likely secondary to resuscitative efforts. Patient appears to be volume repleted at this time. Will discontinue IV fluids given patient's history of congestive heart failure. Anticipate improvement with free water administration p.o. likely okay to reinitiate Lasix therapy 3. CAD/PAD/pacemaker/elevated troponins/advanced age/chronic systolic congestive heart failure Complicates care, management, recovery and prognosis. Patient's aspirin and Plavix on hold secondary to acute GI bleed. Patient does have a remote history of stents in the past. Elevation of troponin may be secondary to #1. Patient is not a candidate for acute intervention at this time. Echocardiogram shows an EF of 35% with moderate mitral insufficiency Code Visit Inpatient E&M: 84178 Subs Hosp L2
--- NOTE | 2018-08-07 10:14 | PCM.PN.SRG ---
Patient Problems: Active and Suspected Problems (Last Reviewed 08/03/18 @ 07:33 by Messi Hendricks MD) Acute blood loss anemia (Acute) Subjective: no abdominal complaints, complaining both legs below the knees hurt - Physical Exam General: Alert, Oriented x3, Cooperative Lungs: Clear to auscultation, Normal air movement Cardiovascular: Regular rate, Murmur Abdomen: Bowel Sounds Present, Soft, Non Tender Extremities: Capillary Refill Less than 3 Seconds - bilaterally Vital Signs Temp Pulse Resp BP Pulse Ox 98.1 F 63 18 132/51 H 97 08/07/18 09:16 08/07/18 09:16 08/07/18 09:16 08/07/18 09:16 08/07/18 09:16 Oxygen Flow Rate (L/min) 2 Oxygen Delivery Method Room Air Weight: 53.9 kg Body Mass Index (BMI) 21.9 Intake and Output for Last 24 Hours 08/05/18 08/06/18 08/07/18 23:59 23:59 23:59 Intake Total 3090.2 / 3090.2 1511 / 1511 400 / 400 Output Total 1650 / 1650 500 / 500 175 / 175 Balance 1440.2 / 1440.2 1011 / 1011 225 / 225 Laboratory Tests Past 24 Hrs 08/07/18 08/07/18 05:45 05:45 WBC 8.1 RBC 2.72 L Hgb 8.5 L Hct 27.3 L MCV 100.4 H MCH 31.3 MCHC 31.1 L RDW 16.5 H RDW Differential 54.1 H Plt Count 198 MPV 10.7 Sodium 144 Potassium 3.8 Chloride 111 H Carbon Dioxide 27.0 Anion Gap 6 BUN 18 Creatinine 1.04 H Estim Creat Clear Calc 32.01 Est GFR (MDRD) Af Amer 65 Est GFR (MDRD) Non-Af 54 L BUN/Creatinine Ratio 17.3 Glucose 88 Calcium 8.6 Phosphorus 1.9 L Magnesium 1.6 Medical Necessity - Tobacco Use Smoking Status: Never smoker Assessment/Plan All Active Problems (Last Reviewed 08/03/18 @ 07:33 by Messi Hendricks MD) Acute blood loss anemia (Acute) Respiratory abnormality (Acute) CAP (community acquired pneumonia) (Acute) Severe sepsis (Acute) Peripheral vascular disease (Acute) Bleeding duodenal ulcer - stable patient presented with hematemesis, melena and anemia.underwent EGD on August 04 which demonstrated a duodenal ulcer with adherent red clot and still oozing which was treated with epinephrine injection. She underwent repeat upper endoscopy on August 05 which demonstrated the ulcer to now have no further oozing and in the early stages of healing. patient currently denies any abdominal pain, melena. She is hungry and wants food. I'm comfortable with her diet advancing. Cardiac and pulmonary issues noted as above. Patient with a paced rhythm. Complaining of a feeling of chest palpitations but patient's paced rhythm was stable throughout. Elevated troponins noted. Managed by medicine and critical care. hemoglobin decreased slightly but likely delusional given eyes and nose and improvement in BUN/creatinine area electrolytes unremarkable, uncertain etiology of lower extremity leg pain
--- NOTE | 2018-08-07 11:04 | PN_ITS ---
Patient Problems: Active and Suspected Problems (Last Reviewed 08/03/18 @ 07:33 by Messi Hendricks MD) Acute blood loss anemia (Acute) Subjective: Afebrile Blood pressure is under better control since resumption of some of the antihypertensive agents. Pulse ox is 92-97% saturation on room air. Fluid balance since admission is recorded as +[id number]. All lab was personally reviewed. Hemoglobin is 8.5 today, down from 9.7 yesterday but this certainly may be dilutional. Platelets and white blood cell count are within normal limits. Sodium is normal today at 144 and potassium is 3.8. Creatinine is 1.04 and the BUN is down to 18. The DC tool and production planner discussed with her yesterday having C come to her house and help with her medications but she refused. She is c/o pain in her legs today. The feet are elevated and she has a hx of PVD. She has trouble answering direct questions........she generalizes and gives a story instead of a yes/no answer and the story does not answer the question I ask her. Negative N/V. Can not tell me if she is SOB......asks me if I think she is SOB. - Physical Exam General: Alert, Cooperative, No apparent distress HEENT: PERRLA, EOMI Oral: Moist Mucosa Neck: Trachea Midline, JVD, Bilateral Lungs: Rales, - - No conversational dyspnea and no accessory muscle use when sitting upright in bed Cardiovascular: Regular rate, Regular Rhythm, Normal S1, Normal S2, No Gallop Abdomen: Bowel Sounds Present - Not hyperactive, Soft, Non Tender, Non-Distended Extremities: No clubbing, No cyanosis, Edema - of the RLE, - - she is having BL leg pain. + Mauricio's and Ron on the Left but swelling on the R which is unilateral Skin: No rashes, No breakdown Neurological: Cranial nerves II-XII grossly intact, Neuro grossly intact Psych/Mental Status: Appropriate Vital Signs Temp Pulse Resp BP Pulse Ox 98.1 F 63 18 132/51 H 97 08/07/18 09:16 18 09:16 08/07/18 09:16 08/07/18 09:16 08/07/18 09:16 Oxygen Flow Rate (L/min) 2 Oxygen Delivery Method Room Air Weight: 118 lb 13.266 oz Body Mass Index (BMI) 21.9 Intake and Output for Last 24 Hours 08/05/18 08/06/18 08/07/18 23:59 23:59 23:59 Intake Total 3090.2 / 3090.2 1511 / 1511 400 / 400 Output Total 1650 / 1650 500 / 500 175 / 175 Balance 1440.2 / 1440.2 1011 / 1011 225 / 225 Laboratory Tests Past 24 Hrs 08/07/18 08/07/18 05:45 05:45 WBC 8.1 RBC 2.72 L Hgb 8.5 L Hct 27.3 L MCV 100.4 H MCH 31.3 MCHC 31.1 L RDW 16.5 H RDW Differential 54.1 H Plt Count 198 MPV 10.7 Sodium 144 Potassium 3.8 Chloride 111 H Carbon Dioxide 27.0 Anion Gap 6 BUN 18 Creatinine 1.04 H Estim Creat Clear Calc 32.01 Est GFR (MDRD) Af Amer 65 Est GFR (MDRD) Non-Af 54 L BUN/Creatinine Ratio 17.3 Glucose 88 Calcium 8.6 Phosphorus 1.9 L Magnesium 1.6 Medical Necessity - Tobacco Use Smoking Status: Never smoker Assessment/Plan All Active Problems (Last Reviewed 08/03/18 @ 07:33 by Messi Hendricks MD) Acute blood loss anemia (Acute) Respiratory abnormality (Acute) CAP (community acquired pneumonia) (Acute) Severe sepsis (Acute) Peripheral vascular disease (Acute) Impressions 1. UGI bleed due to PUD with duodenal Ulcer 2. anemia due to acute bleeding - transfused with 3 units PRBC's and the HGB is stable 3. LV dysfunction with a 35% EF 4. BARTH's - takes 2-3 Excedrin every day.....tells me that Tylenol does not work for her 5. CAD 6. PVD 7. HTN 8. COPD 9. increased kyphosis 10. Hypothyroidism - had thyroidectomy for goiter 11. 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 calf pain - can not anticoagulate due to the UGI bleed 15. decompensated systolic CHF due to volume OL Lasix 40 mg IV BID check a Dig level........she is chronically on Dig but has 3-4 RF this may not be the best medication for her at this stage of her life Keep the bed in a vascular position In my opinion she needs HHC to set up her meds for her to take and pt is resistant.........I think she is confused at times and may need to speak to her children to encourage her to use HHC.....May need to set up a family conference......will discuss with SS tomorrow US of the LE's today Restart synthroid Recheck lab in the a.m. Code Visit Inpatient E&M: 78436 Subs Hosp L3
[2018-08-07] MEDS: Pantoprazole Sodium 40 MG Tablet PO ×2 (12:27→21:25)
--- NOTE | 2018-08-07 12:41 | VDLE_ITS ---
Reason For Study: LEG PAIN RIGHT LEFT GSV is normal. CFV is compressible, spontaneous, competent, CFV is compressible, spontaneous, competent and demonstrates pulsatile venous flow. and demonstrates pulsatile venous flow. FV is compressible, spontaneous, competent FV is compressible, spontaneous, competent and demonstrates pulsatile venous flow. and demonstrates pulsatile venous flow. POP V is compressible, spontaneous, competent POP V is compressible, spontaneous, competent and demonstrates pulsatile venous flow. and demonstrates pulsatile venous flow. T/P Trunk is compressible. T/P Trunk is compressible. PTV is compressible. PTV is compressible. LT PerV is compressible. RT PerV is compressible. GSV harvested. Procedure Exam performed portable in patient room. A preliminary report was called and/or faxed to [facility]. Interpretation Summary Deep veins of the lower extremities are bilaterally patent and compressible segmentally. There is no evidence of deep vein thrombosis on either side. Valvular competence appears intact within the proximal deep venous systems bilaterally. The right greater saphenous vein appears patent and compressible segmentally. The left greater saphenous vein is absent, having been previously harvested. Pulsatile flow is noted in the deep venous system bilaterally, which may be indicative of elevated central venous pressure (i.e. congestive heart failure, tricuspid valve insufficiency, etc.). Clinical correlation is advised. Ordering Physician: Lara Gilliam Referring Physician: LIA Fuller M.D. Performed By: Samina Arellano RVT
[2018-08-07 14:22] LABS: Digoxin Level 0.27 ng/mL (0.80-2.00)
[2018-08-07] MEDS: Furosemide 40 MG/4 ML Vial IV ×2 (14:38→17:50)
[2018-08-07] MEDS: Magnesium Oxide 400 MG Tablet PO (14:48)
[2018-08-07 17:47] VITALS: BP 151/53; PULSE 66; RESP 18; TEMP 37.1; O2SAT 95
[2018-08-07] MEDS: Gabapentin 100 MG Capsule PO (17:50)
[2018-08-07 21:21] VITALS: BP 129/69; PULSE 69; RESP 18; TEMP 37.7; O2SAT 92
[2018-08-07 21:25] VITALS: PULSE 69
[2018-08-07] MEDS: Digoxin 125 MCG Tablet PO (21:25)
[2018-08-07] MEDS: Carvedilol 12.5 MG Tablet PO (21:25)
[2018-08-07] MEDS: LORazepam 0.5 MG Tablet PO (22:40)
[2018-08-08 03:21] VITALS: BP 128/51; PULSE 60; RESP 14; TEMP 37.9; O2SAT 92
[2018-08-08] MEDS: Morphine 2 MG/ML Syringe IV ×4 (03:31→20:25)
[2018-08-08] MEDS: 0.9% NaCl Peripheral Flush Adult/Peds IV ×6 (03:32→20:25)
--- NOTE | 2018-08-08 05:00 | RAD_ITS ---
STUDY: X-RAY CHEST REASON FOR EXAM: Female, 82 years old. Fever and cough. TECHNIQUE: AP portable chest. COMPARISON: July 20, 2018. FINDINGS: Mild cardiomegaly unchanged. The lungs are hyperinflated. Scattered right basilar subsegmental atelectasis or fibrosis unchanged. No pneumothorax. Sternal wires are present. Cardiac pacemaker left hemithorax. Surgical clips right axilla. The breast shadows are not visualized. Osseous structures unchanged. There is no demonstrated abnormality of the visualized soft tissue structures of the upper abdomen. RAD/Chest 1 View (Portable) IMPRESSION: Stable chest, no acute cardiopulmonary disease. Mild cardiomegaly. COPD. Electronically Signed: Michael Abebe MD at 7:25 EST , Service support ,
[2018-08-08 05:40] LABS: Hematocrit 29.6 % (37-47); Hemoglobin 9.5 g/dl (12.0-15.0); Mean Corp Hgb Conc 32.1 g/gl (32-36); Mean Corpuscular Hgb 31.7 pg (27.0-32.0); Mean Corpuscular Volume 98.7 fL (81-99); Mean Platelet Vol. 10.6 fl (6.2-12.0); Platelet Count 240 K/mm3 (150-450); RBC Distribution Width CV 16.7 % (11.6-14.6); RBC Distribution Width SD 53.2 fl (35.1-43.9); White Blood Count 10.2 K/mm3 (4.4-11.0)
[2018-08-08 05:41] LABS: Scan Indicated on CBC? Y/N NO
[2018-08-08 05:50] LABS: Anion Gap 8 (5-15); BUN 15 mg/dL (7-18); BUN/Creat Ratio 12.1 RATIO (10-20); Calcium,Total 8.6 mg/dL (8.5-10.1); Chloride 104 mmol/L (98-107); Creatinine, Serum 1.24 mg/dL (0.55-1.02); EST Glomerular Filtration Rate 44 mL/min (>60); Est Glom Filt Rate - Afr Amer 53 mL/min (>60); Estimated Creatinine Clearance 26.85 ml/min; Glucose 96 mg/dL (74-106); Phosphorus 2.9 mg/dL (2.5-4.9); Potassium 3.7 mmol/L (3.5-5.1); Sodium Level 143 mmol/L (136-145)
[2018-08-08] MEDS: Levothyroxine 100 MCG Tablet PO (06:15)
[2018-08-08] MEDS: Ondansetron 4 MG/2 ML Vial IV (06:15)
[2018-08-08] MEDS: Carvedilol 12.5 MG Tablet PO ×2 (09:03→09:04)
[2018-08-08] MEDS: Spironolactone 25 MG Tablet PO (09:03)
[2018-08-08] MEDS: Magnesium Oxide 400 MG Tablet PO (09:03)
[2018-08-08] MEDS: Gabapentin 100 MG Capsule PO ×2 (09:03→18:16)
[2018-08-08] MEDS: Losartan Potassium 100 MG Tablet PO (09:07)
[2018-08-08] MEDS: Pantoprazole Sodium 40 MG Tablet PO ×2 (09:08→20:26)
[2018-08-08] MEDS: Furosemide 40 MG/4 ML Vial IV (09:08)
[2018-08-08 09:21] VITALS: BP 98/72; PULSE 70; RESP 16; TEMP 37.6; O2SAT 94
[2018-08-08 09:34] VITALS: PULSE 70
[2018-08-08] MEDS: Digoxin 125 MCG Tablet PO (09:34)
--- NOTE | 2018-08-08 11:57 | RAD_ITS ---
STUDY: X-RAY - RIGHT HAND REASON FOR EXAM: Female, 82 years old. Third finger redness and swelling TECHNIQUE: 3 view(s) of the hand. COMPARISON: None. FINDINGS: Normal radiocarpal articulation. Normal distal radioulnar joint. Normal visualized carpal bones. Normal carpal articulations Normal carpometacarpal articulation of the thumb. Normal second through fifth carpometacarpal joints. Normal metacarpi. Normal metacarpophalangeal joint of the thumb. Normal interphalangeal joint of the thumb. Normal proximal and distal phalanges of the thumb. Normal metacarpophalangeal joints of the second through fifth fingers. Interphalangeal osteoarthritis distal digit 5, proximal and distal digit 4, proximal and distal digits 3, and proximal digit 2. A small erosion is noted involving the ulnar base of the fifth proximal phalanx. The soft tissue structures are unremarkable. RAD/Hand Min 3 Views IMPRESSION: Multifocal osteoarthritis as described. A small erosion is noted involving the ulnar base of the fifth proximal phalanx. Electronically Signed: Ha Collazo MD at 14:21 EST Tel , Service support ,
[2018-08-08 15:21] VITALS: BP 101/64; PULSE 77; RESP 16; TEMP 37.1; O2SAT 95
--- NOTE | 2018-08-08 16:28 | PCM.PROGNOTE ---
Patient Problems: Active and Suspected Problems (Last Reviewed 08/03/18 @ 07:33 by Messi Hendricks MD) Acute blood loss anemia (Acute) Subjective: All events of the past 24 hours of been reviewed. Patient had a fever to 100.2 ?F last night Vital signs are stable and she is 92-94% saturated on room air today with a respiratory rate of 14-16. Good urine output with Lasix All lab was personally reviewed. Hemoglobin is 9.5 today, up from 8.5 with diuresis. White blood cell count is 10.2. Electrolytes are within normal limits and the BUN is 15 with a creatinine of 1.24, up from 1.04 yesterday. Digoxin level was 0.27 yesterday and the digoxin was restarted. Chest x-ray today shows no pulmonary vascular congestion, infiltrates or pleural effusions. X-ray of the right hand shows a small erosion at the ulnar side of the fifth proximal phalanx. She is c/o pain, swelling of the R middle finger that started last night. she tells me that when the pulse ox was on that finger she felt something poke her. She denies CP and also denies SOB today. No BM since admission per the patient Denies abdominal pain No nausea The venous US was negative BL Objective: - Physical Exam General: Alert, Cooperative, No apparent distress HEENT: PERRLA, EOMI Oral: Moist Mucosa Neck: Trachea Midline, JVD, Bilateral Lungs: Rales are improved today Cardiovascular: Regular rate, Regular Rhythm, Normal S1, Normal S2, No Gallop Abdomen: Bowel Sounds Present - Not hyperactive, Soft, Non Tender, Non-Distended Extremities: No clubbing, No cyanosis, edema of the legs is better since the Lasix, the middle finger of the R hand is swollen, red and painful to touch. It is also warm to touch. There is very swollen PIP joint. The hand itself is not swollen Skin: No rashes, No breakdown Neurological: Cranial nerves II-XII grossly intact, Neuro grossly intact Psych/Mental Status: Appropriate - Physical Exam Vital Signs Temp Pulse Resp BP Pulse Ox 99.7 F H 70 16 98/72 94 08/08/18 09:21 08/08/18 09:34 08/08/18 09:21 08/08/18 09:21 08/08/18 09:21 Oxygen Flow Rate (L/min) 2 Oxygen Delivery Method Room Air Weight: 118 lb 13.266 oz Body Mass Index (BMI) 21.9 Intake and Output for Last 24 Hours 08/06/18 08/07/18 08/08/18 23:59 23:59 23:59 Intake Total 1511 / 1511 1337 / 1337 310 / 310 Output Total 500 / 500 2175 / 2175 2150 / 2150 Balance 1011 / 1011 -838 / -838 -1840 / -1840 Laboratory Tests Past 24 Hrs 08/08/18 08/08/18 05:08 05:08 WBC 10.2 RBC 3.00 L Hgb 9.5 L Hct 29.6 L MCV 98.7 MCH 31.7 MCHC 32.1 RDW 16.7 H RDW Differential 53.2 H Plt Count 240 MPV 10.6 Sodium 143 Potassium 3.7 Chloride 104 Carbon Dioxide 31.0 Anion Gap 8 BUN 15 Creatinine 1.24 H Estim Creat Clear Calc 26.85 Est GFR (MDRD) Af Amer 53 L Est GFR (MDRD) Non-Af 44 L BUN/Creatinine Ratio 12.1 Glucose 96 Calcium 8.6 Phosphorus 2.9 Medical Necessity - Tobacco Use Smoking Status: Never smoker Assessment/Plan All Active Problems (Last Reviewed 08/03/18 @ 07:33 by Messi Hendricks MD) Acute blood loss anemia (Acute) Respiratory abnormality (Acute) CAP (community acquired pneumonia) (Acute) Severe sepsis (Acute) Peripheral vascular disease (Acute) Impressions 1. UGI bleed due to PUD with duodenal Ulcer 2. anemia due to acute bleeding - transfused with 3 units PRBC's and the HGB is stable 3. LV dysfunction with a 35% EF 4. BARTH's - takes 2-3 Excedrin every day.....tells me that Tylenol does not work for her 5. CAD 6. PVD 7. HTN 8. COPD 9. increased kyphosis 10. Hypothyroidism - had thyroidectomy for goiter 11. 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 calf pain - can not anticoagulate due to the UGI bleed. Venous US of the LE's is negative for DVT 15. decompensated systolic CHF due to volume OL 16. cellulitis of the R hand Start Cefepime Blood cultures X 2 straight cath for UA and urine culture BMP in the AM restart Lasix 40 mg daily 20 MEQ potassium today...maintain the potassium around 4. Start a stool softener and order MOM PRN for constipation Code Visit Inpatient E&M: 89546 Subs Hosp L3
[2018-08-08 18:19] LABS: Bacteria 0 SEEN /hpf (None Seen); Mucous, Urine 0 SEEN /hpf (<or=2+); Red Blood Cells-Urine 0 SEEN /hpf (0-5); Squamous Epithelial Cells - UA 0 SEEN /hpf (5-10); White Blood Cells 0 SEEN /hpf (0-5)
[2018-08-08 18:27] LABS: Color, Urine Yellow (Yellow); Glucose, Dipstick Normal (Normal); Ketone-Dipstick Negative (Negative); Leukocyte Esterase-Dipstick Negative /ul (Negative); Nitrite-Dipstick Negative (Negative); Occult Blood-Urine Negative /ul (Negative); Protein-Dipstick Negative (Negative); Specific Gravity, Urine 1.015 (1.002-1.030); Urine Bilirubin Dipstick Negative (Negative); Urine Clarity Clear (Clear); Urine Urobilinogen Normal (Normal)
--- NOTE | 2018-08-08 20:08 | PN.SURG_ITS ---
Patient Problems: Active and Suspected Problems (Last Reviewed 08/03/18 @ 07:33 by Messi Hendricks MD) Acute blood loss anemia (Acute) Subjective: patient notes no further blood in stools, no emesis feels poorly - Physical Exam General: Alert, Oriented x3 Oral: Moist Mucosa Neck: Supple Abdomen: Soft Vital Signs Temp Pulse Resp BP Pulse Ox 98.8 F 77 16 101/64 95 08/08/18 15:21 08/08/18 15:21 08/08/18 15:21 08/08/18 15:21 08/08/18 15:21 Oxygen Flow Rate (L/min) 2 Oxygen Delivery Method Room Air Weight: 53.9 kg Body Mass Index (BMI) 21.9 Intake and Output for Last 24 Hours 08/06/18 08/07/18 08/08/18 23:59 23:59 23:59 Intake Total 1511 / 1511 1337 / 1337 310 / 310 Output Total 500 / 500 2175 / 2175 2750 / 2750 Balance 1011 / 1011 -838 / -838 -2440 / -2440 Laboratory Tests Past 24 Hrs 08/08/18 08/08/18 08/08/18 05:08 05:08 18:00 WBC 10.2 RBC 3.00 L Hgb 9.5 L Hct 29.6 L MCV 98.7 MCH 31.7 MCHC 32.1 RDW 16.7 H RDW Differential 53.2 H Plt Count 240 MPV 10.6 Sodium 143 Potassium 3.7 Chloride 104 Carbon Dioxide 31.0 Anion Gap 8 BUN 15 Creatinine 1.24 H Estim Creat Clear Calc 26.85 Est GFR (MDRD) Af Amer 53 L Est GFR (MDRD) Non-Af 44 L BUN/Creatinine Ratio 12.1 Glucose 96 Calcium 8.6 Phosphorus 2.9 Urine Color Yellow Urine Clarity Clear Urine pH 6.0 Ur Specific [place] 1.015 Urine Protein Negative Urine Glucose (UA) Normal Urine Ketones Negative Urine Occult Blood Negative Urine Nitrite Negative Urine Bilirubin Negative Urine Urobilinogen Normal Ur Leukocyte Esterase Negative Urine RBC 0 SEEN Urine WBC 0 SEEN Ur Squamous Epith Cells 0 SEEN Urine Bacteria 0 SEEN Urine Mucus 0 SEEN Medical Necessity - Tobacco Use Smoking Status: Never smoker Assessment/Plan All Active Problems (Last Reviewed 08/03/18 @ 07:33 by Messi Hendricks MD) Acute blood loss anemia (Acute) Respiratory abnormality (Acute) CAP (community acquired pneumonia) (Acute) Severe sepsis (Acute) Peripheral vascular disease (Acute) Impression: episode of bleeding duodenal ulcer - s/p EGD for control of bleeding Plan: will sign off case, please let us know if any new developments
[2018-08-08] MEDS: LORazepam 0.5 MG Tablet PO (20:25)
[2018-08-08 20:30] VITALS: BP 126/57; PULSE 70; RESP 18; TEMP 37; O2SAT 97
[2018-08-09] MEDS: Morphine 2 MG/ML Syringe IV ×5 (01:07→14:58)
[2018-08-09] MEDS: 0.9% NaCl Peripheral Flush Adult/Peds IV ×5 (01:07→14:58)
[2018-08-09 02:10] VITALS: BP 135/64; PULSE 71; RESP 18; TEMP 37.4; O2SAT 94
[2018-08-09 06:36] LABS: Anion Gap 9 (5-15); BUN 19 mg/dL (7-18); BUN/Creat Ratio 14.2 RATIO (10-20); Chloride 100 mmol/L (98-107); Creatinine, Serum 1.34 mg/dL (0.55-1.02); EST Glomerular Filtration Rate 40 mL/min (>60); Est Glom Filt Rate - Afr Amer 49 mL/min (>60); Estimated Creatinine Clearance 24.85 ml/min; Glucose 117 mg/dL (74-106); Potassium 3.9 mmol/L (3.5-5.1); Sodium Level 139 mmol/L (136-145)
[2018-08-09] MEDS: Levothyroxine 100 MCG Tablet PO (06:44)
[2018-08-09 08:48] VITALS: BP 145/66; PULSE 74; RESP 16; TEMP 37.6; O2SAT 91
[2018-08-09] MEDS: Gabapentin 100 MG Capsule PO ×2 (08:57→18:31)
[2018-08-09] MEDS: Magnesium Oxide 400 MG Tablet PO (08:57)
[2018-08-09] MEDS: Spironolactone 25 MG Tablet PO (08:57)
[2018-08-09 08:58] VITALS: PULSE 63
[2018-08-09] MEDS: Carvedilol 12.5 MG Tablet PO ×2 (08:58→21:06)
[2018-08-09] MEDS: Losartan Potassium 100 MG Tablet PO (08:58)
[2018-08-09] MEDS: Digoxin 125 MCG Tablet PO (08:58)
[2018-08-09] MEDS: Furosemide 40 MG Tablet PO (08:59)
[2018-08-09] MEDS: Pantoprazole Sodium 40 MG Tablet PO ×2 (08:59→21:06)
[2018-08-09] MEDS: Psyllium 1 PACKET PO (09:03)
[2018-08-09 12:13] VITALS: BP 139/60; PULSE 69; RESP 16; TEMP 37.2; O2SAT 92
--- NOTE | 2018-08-09 12:19 | PCM.PROGNOTE ---
Patient Problems: Active and Suspected Problems (Last Reviewed 08/03/18 @ 07:33 by Messi Hendricks MD) Acute blood loss anemia (Acute) Subjective: All events of the past 24 hours of been reviewed. T-max is 99.7 and the current temperature is 99. Patient is complaining of severe pain in both lower extremities, right greater than left. Recent venous ultrasounds were negative. Patient has known peripheral vascular disease and is due to have a right lower extremity vascular procedure by Dr. Fuller Vital signs are stable. Pulse ox is 91-94% on room air. All lab was personally reviewed. BUN is 19 today with a creatinine of 1.34. Urine output on 08/07 was 2175. X-ray of the right hand showed multifocal osteoarthritis with a small erosion involving the ulnar base of the fifth proximal phalanx. No evidence of osteomyelitis in the second finger I have reviewed Dr. Maury Fuller's most recent progress note dated 07/20/2018. Patient recently had PVRs done at the [facility] that showed marked deterioration of the vasculature in the right lower extremity. The right DP and PT Doppler waveforms were monophasic. The right DP and PT ankle-brachial indices were 0.35 and 0.47 respectively at rest. This is consistent with severe peripheral vascular disease. Dr. Fuller did note that the patient has had pain in both lower extremities from the knee down for quite some time now. The right is always worse. There was no mention of any plans for intervention at this time. - Physical Exam General: Alert, Oriented x3, Cooperative, - - She complains of severe pain but does not look to be in any significant distress when evaluated by myself or her nurse. The legs are being kept in the vascular position when she is in the bed. She tells me that they do not feel any better when she is sitting in a chair with her legs dependent HEENT: Atraumatic, PERRLA, EOMI, Normocephalic Neck: Supple, Trachea Midline Lungs: Clear to auscultation, Diminished Cardiovascular: Regular rate, Regular Rhythm, Normal S1, Normal S2, No Gallop Abdomen: Bowel Sounds Present, Soft, Non Tender Extremities: No clubbing, No cyanosis, - - Both feet are warm. There is no erythema or rash of the lower extremities bilaterally. I could not palpate the DP or PT pulses in either LE. Skin: No rashes, - - The second R middle finger is less erythematous and is in fact more pink tonight. There is no opening in the skin. There is some pain at the MCP joint of the second finger but no swelling Musculoskeletal: Arthritic Changes Neurological: Cranial nerves II-XII grossly intact, Neuro grossly intact Psych/Mental Status: Appropriate, - - flippant and tells me she wants me to make her unconscious Vital Signs Temp Pulse Resp BP Pulse Ox 99.0 F 69 16 139/60 H 92 08/09/18 12:13 08/09/18 12:13 08/09/18 12:13 08/09/18 12:13 08/09/18 12:13 Oxygen Flow Rate (L/min) 2 Oxygen Delivery Method Room Air Weight: 118 lb 13.266 oz Body Mass Index (BMI) 21.9 Intake and Output for Last 24 Hours 08/07/18 08/08/18 08/09/18 23:59 23:59 23:59 Intake Total 1337 / 1337 310 / 310 933 / 933 Output Total 2175 / 2175 2750 / 2750 1050 / 1050 Balance -838 / -838 -2440 / -2440 -117 / -117 Laboratory Tests Past 24 Hrs 08/08/18 08/09/18 18:00 05:30 Sodium 139 Potassium 3.9 Chloride 100 Carbon Dioxide 30.0 Anion Gap 9 BUN 19 H Creatinine 1.34 H Estim Creat Clear Calc 24.85 Est GFR (MDRD) Af Amer 49 L Est GFR (MDRD) Non-Af 40 L BUN/Creatinine Ratio 14.2 Glucose 117 H Calcium 9.0 Urine Color Yellow Urine Clarity Clear Urine pH 6.0 Ur Specific [employer] [place] 1.015 Urine Protein Negative Urine Glucose (UA) Normal Urine Ketones Negative Urine Occult Blood Negative Urine Nitrite Negative Urine Bilirubin Negative Urine Urobilinogen Normal Ur Leukocyte Esterase Negative Urine RBC 0 SEEN Urine WBC 0 SEEN Ur Squamous Epith Cells 0 SEEN Urine Bacteria 0 SEEN Urine Mucus 0 SEEN Medical Necessity - Tobacco Use Smoking Status: Never smoker Assessment/Plan All Active Problems (Last Reviewed 08/03/18 @ 07:33 by Messi Hendricks MD) Acute blood loss anemia (Acute) Respiratory abnormality (Acute) CAP (community acquired pneumonia) (Acute) Severe sepsis (Acute) Peripheral vascular disease (Acute) Impressions 1. UGI bleed due to PUD with duodenal Ulcer - suspect related to her chronic use of Excedrin......despite stage 4 CRF 2. anemia due to acute bleeding - transfused with 3 units PRBC's and the HGB is stable 3. LV dysfunction with a 35% EF 4. BARTH's - takes 2-3 Excedrin every day.....tells me that Tylenol does not work for her 5. CAD 6. PVD 7. HTN 8. COPD 9. increased kyphosis 10. Hypothyroidism - had thyroidectomy for goiter 11. 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 hx of breast CA - S/P L mastectomy 13. Stage 4 CRF 14. calf pain - can not anticoagulate due to the UGI bleed. Venous US of the LE's is negative for DVT. She has severe PVD of both LE's with JULIET's less than 0.5 BL 15. decompensated systolic CHF due to volume OL - resolved 16. cellulitis of the R hand - blood culture is pending....she is improving with Cefepim Unfortunately there are not many options for improving her LE pain/PVD. She has stage 4 CRF and is not a good candidate for angiograms and Dr. Fuller's note did not mention any plans for such. She is not a candidate for Pletal due to the CRF. The bed is in a vascular position and she tells me there is no improvement in the pain with this maneuver or with sitting in a chair with her legs dependent. She tells me that nothing works to relieve her pain except Excedrin and she has a bleeding duodenal ulcer and stage IV chronic renal failure. Dr. 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 At some point she may want to consider a second opinion from another vascular surgeon or comfort care.....I will discuss this with her and her family tomorrow. We will continue cefepime as the cellulitis of the right middle finger is improving. Last stress 1 year ago was negative for ischemia with 45% EF Code Visit Inpatient E&M: 27120 Subs Hosp L3
[2018-08-09 20:41] VITALS: BP 124/66; PULSE 71; RESP 18; TEMP 38.1; O2SAT 93
[2018-08-09] MEDS: HYDROcodone Bitartrate/Apap 5/325 Tablet PO (20:56)
[2018-08-09 23:41] VITALS: TEMP 37.1
[2018-08-10 02:25] VITALS: BP 132/62; PULSE 66; RESP 16; TEMP 37.7; O2SAT 94
[2018-08-10] MEDS: HYDROcodone Bitartrate/Apap 5/325 Tablet PO ×2 (03:49→23:48)
[2018-08-10] MEDS: Levothyroxine 100 MCG Tablet PO (05:41)
[2018-08-10] MEDS: 0.9% NaCl Peripheral Flush Adult/Peds IV ×3 (05:49→15:40)
[2018-08-10 06:31] LABS: Absolute Lymphocyte Count 0.73 X10^3/ul (0.83-4.51); Basophil# 0.03 X10^3/uL; Basophil% 0.2 % (0-1); Eosinophil# 0.02 X10^3/uL; Eosinophils% 0.2 % (0-5); Hematocrit 29.4 % (37-47); Lymphocyte # 0.73 X10^3/ul (4.0); Mean Corp Hgb Conc 30.6 g/gl (32-36); Mean Corpuscular Hgb 30.9 pg (27.0-32.0); Mean Platelet Vol. 9.9 fl (6.2-12.0); Monocyte% 11.5 % (0-10); Neutrophil # 10.01 X10^3/uL (2.7-7.7); Neutrophil % 81.9 % (47-70); Platelet Count 246 K/mm3 (150-450); RBC Distribution Width CV 16.7 % (11.6-14.6); RBC Distribution Width SD 59.7 fl (35.1-43.9); Red Blood Count 2.91 M/mm3 (4.2-5.4); White Blood Count 12.2 K/mm3 (4.4-11.0)
[2018-08-10 06:32] LABS: POSITIVE COUNT NO; POSITIVE DIFFERENTIAL NO; POSITIVE MORPHOLOGY NO
[2018-08-10 06:43] LABS: Anion Gap 9 (5-15); BUN 27 mg/dL (7-18); BUN/Creat Ratio 15.8 RATIO (10-20); Chloride 95 mmol/L (98-107); Creatinine, Serum 1.71 mg/dL (0.55-1.02); EST Glomerular Filtration Rate 30 mL/min (>60); Est Glom Filt Rate - Afr Amer 37 mL/min (>60); Estimated Creatinine Clearance 19.47 ml/min; Glucose 120 mg/dL (74-106); Phosphorus 3.3 mg/dL (2.5-4.9); Potassium 3.9 mmol/L (3.5-5.1); Sodium Level 134 mmol/L (136-145)
[2018-08-10] MEDS: Magnesium Oxide 400 MG Tablet PO (07:54)
[2018-08-10] MEDS: Gabapentin 100 MG Capsule PO ×2 (07:54→16:40)
[2018-08-10] MEDS: Morphine 2 MG/ML Syringe IV (08:12)
[2018-08-10] MEDS: Psyllium 1 PACKET PO (08:19)
[2018-08-10 08:21] VITALS: PULSE 60
[2018-08-10] MEDS: Pantoprazole Sodium 40 MG Tablet PO ×2 (08:21→21:06)
[2018-08-10] MEDS: Losartan Potassium 100 MG Tablet PO (08:21)
[2018-08-10] MEDS: Carvedilol 12.5 MG Tablet PO ×2 (08:21→21:06)
[2018-08-10] MEDS: Digoxin 125 MCG Tablet PO (08:21)
[2018-08-10] MEDS: Spironolactone 25 MG Tablet PO (08:21)
[2018-08-10] MEDS: Furosemide 40 MG Tablet PO (08:22)
[2018-08-10 08:30] VITALS: BP 122/46; PULSE 60; RESP 16; TEMP 37.1; O2SAT 93
[2018-08-10 15:00] VITALS: BP 123/54; PULSE 64; RESP 16; TEMP 37.1; O2SAT 94
--- NOTE | 2018-08-10 15:11 | CASEMGMT ---
Social Work Note SW and physician met with pt and pt's daughter. Physician updated pt on condition and recommended pt being transferred to [facility]. SW provided alternatives to being transferred if pt didn't want to be transferred including SNF with SNF setting up appointment with Vascular Surgeon. Pt and pt's daughter agreeable to transfer to [facility]. Physician to work on transfer to [facility]. Zully Nguyen SOLE ROUNDING MACHINE OPERATOR, HOME IMPROVEMENT ADVISOR
--- NOTE | 2018-08-10 15:18 | PCM.PROGNOTE ---
Patient Problems: Active and Suspected Problems (Last Reviewed 08/03/18 @ 07:33 by Messi Hendricks MD) Acute blood loss anemia (Acute) Subjective: All events of the past 24 Hours have been reviewed Antibiotic day #3 cefepime VS: Stable, 93-94% saturation on room air. TMAX -100.5 ?F last evening at 9 PM I&O -1033 in and 1500 out on 08/09/2019 for a balance of -467. Lab: White blood cell count today is 12.2 with 82% neutrophils. Hemoglobin is 9.0 and platelets are within normal limits. Sodium is mildly decreased at 134 and the chloride is 95. Potassium is 3.9. The BUN today is 27 and the creatinine is 1.71, up from 1.24 on 08/08/2018. Micro: Urine culture and blood cultures from 1217 are negative. Subjective: She continues to c/o severe pain in both LE's even when her legs are dependent. The R is more painful than the left. The pain in the second finger of the R hand is better and the swelling and erythema continue to improve. She is unable to bear weight on her legs they are so painful. No appetite. She is having chills. - Physical Exam General: Alert, Oriented x3, Cooperative, - - she is shivering and looks to be in pain. has been sitting in the chair for a few hours HEENT: Atraumatic, PERRLA, EOMI Oral: Dry Mucosa Neck: Supple Lungs: - - Few coarse crackles in the bases that mostly clear after a few deep breaths. Diminished breath sounds throughout. No accessory muscle use, not tachypneic, no conversational dyspnea Cardiovascular: Regular rate, Regular Rhythm, Normal S1, Normal S2, No rub noted, No Gallop Abdomen: Bowel Sounds Present, Soft, Non Tender, Non-Distended Extremities: - - she has edema of both ankles. The toes on the left foot are cold and blanched. I can not dopple the pulses in the left foot. The R foot is warmer to touch but, is more painful than the left. I can not palpate pulses but, I can dopple both the DP and the PT pulses on the right. Musculoskeletal: Muscle Wasting Neurological: Cranial nerves II-XII grossly intact, Neuro grossly intact Psych/Mental Status: Appropriate Vital Signs Temp Pulse Resp BP Pulse Ox 98.7 F 60 16 122/46 H 93 08/10/18 08:30 08/10/18 08:30 08/10/18 08:30 08/10/18 08:30 08/10/18 08:30 Oxygen Flow Rate (L/min) 2 Oxygen Delivery Method Room Air Weight: 118 lb 13.266 oz Body Mass Index (BMI) 21.9 Intake and Output for Last 24 Hours 08/08/18 08/09/18 08/10/18 23:59 23:59 23:59 Intake Total 310 / 310 1033 / 1033 Output Total 2750 / 2750 1500 / 1500 400 / 400 Balance -2440 / -2440 -467 / -467 -400 / -400 Microbiology Past 72 Hours 08/08/18 05:10 Blood Culture - Preliminary Blood Culture (Wb) - Right Forearm No growth in 48 hours. 08/08/18 05:08 Blood Culture - Preliminary Blood Culture (Wb) - Right Hand No growth in 48 hours. 08/08/18 18:00 Urine Culture - Preliminary Urine Catheter - Catheter Culture exhibits no growth. Laboratory Tests Past 24 Hrs 08/10/18 08/10/18 05:28 05:28 WBC 12.2 H RBC 2.91 L Hgb 9.0 L Hct 29.4 L MCV 101.0 H MCH 30.9 MCHC 30.6 L RDW 16.7 H RDW Differential 59.7 H Plt Count 246 MPV 9.9 Immature Gran % (Auto) 0.200 Neut % (Auto) 81.9 H Lymph % (Auto) 6.0 L [place] % (Auto) 11.5 H Eos % (Auto) 0.2 Baso % (Auto) 0.2 Absolute Neuts (auto) 10.0 H Absolute Lymphs (auto) 0.73 L Total Counted Not Reportable Sodium 134 L Potassium 3.9 Chloride 95 L Carbon Dioxide 30.0 Anion Gap 9 BUN 27 H Creatinine 1.71 H Estim Creat Clear Calc 19.47 Est GFR (MDRD) Af Amer 37 L Est GFR (MDRD) Non-Af 30 L BUN/Creatinine Ratio 15.8 Glucose 120 H Calcium 9.0 Phosphorus 3.3 Medical Necessity - Tobacco Use Smoking Status: Never smoker Assessment/Plan All Active Problems (Last Reviewed 08/03/18 @ 07:33 by Messi Hendricks MD) Acute blood loss anemia (Acute) Respiratory abnormality (Acute) CAP (community acquired pneumonia) (Acute) Severe sepsis (Acute) Peripheral vascular disease (Acute) Impressions 1. UGI bleed due to PUD with duodenal Ulcer - suspect related to her chronic use of Excedrin......despite stage 4 CRF 2. anemia due to acute bleeding - transfused with 3 units PRBC's and the HGB is stable 3. LV dysfunction with a 35% EF 4. BARTH's - takes 2-3 Excedrin every day.....tells me that Tylenol does not work for her 5. CAD 6. PVD - severe. JULIET on the right is 0.35 DP and 0.47 PT. and the waveform is monophasic. The left JULIET for the dorsalis pedis and posterior tibial arteries are 0.4 and 0.45 respectively. Had been on ASA and Plavix however, both the ASA and Plavix were discontinued at admission because of acute UGI bleed secondary to duodenal ulcer 7. HTN 8. COPD 9. increased kyphosis 10. Hypothyroidism - had thyroidectomy for goiter 11. 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 hx of breast CA - S/P L mastectomy 13. Stage 4 CRF 14. calf pain - can not anticoagulate due to the UGI bleed. Venous US of the LE's is negative for DVT. She has severe PVD of both LE's with JULIET's less than 0.5 BL 15. decompensated systolic CHF due to volume OL - resolved 16. cellulitis of the R hand - blood cultures negative. Continues to have low grade fever but the finger is no longer warm to touch and the erythemqa is much improved. The pain is better Unfortunately there are not many options for improving her LE pain/PVD. She has stage 4 CRF and is not a good candidate for angiograms and Dr. Fuller's note did not mention any plans for such. She is not a candidate for Pletal due to the CRF. The ASA and the Plavix are stopped due to the GI bleed. The bed is in a vascular position and she tells me there is no improvement in the pain with this maneuver or with sitting in a chair with her legs dependent. She tells me that nothing works to relieve her pain except Excedrin and she has a bleeding duodenal ulcer and stage IV chronic renal failure. Dr. 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 We are unable to control her pain and now she can not even bear weight on her feet they are so painful. Discussed options with her and her dtr and they would like to pursue transfer to [facility] for possible vascular surgery intervention. Will bolus with 500 cc's NS now and start IV of NS at 50. Hold further Lasix. Can not really start Heparin at this time because no employee relations manager here. Recheck lab in the AM. CPK and SGOT now. Check the doppler pulses every 4 hours. Awaiting a call back from [facility]. Reinforced with nursing NOT to elevate her feet and to keep the bed in a vascular position We will continue cefepime as the cellulitis of the right middle finger is improving. If the temp is > 100 F will repeat the blood cultures. Last stress 1 year ago was negative for ischemia with 45% EF Code Visit Inpatient E&M: 12427 Subs Hosp L3
[2018-08-10 16:35] LABS: AST(SGOT) 15 U/L (15-37); CPK Total, Creatine Kinase 33 U/L (26-192)
[2018-08-10 21:00] VITALS: BP 131/59; PULSE 70; RESP 18; TEMP 37.3; O2SAT 94
[2018-08-10] MEDS: LORazepam 0.5 MG Tablet PO (23:11)
[2018-08-11 04:10] VITALS: BP 127/55; PULSE 60; RESP 16; TEMP 36.4; O2SAT 95
--- NOTE | 2018-08-11 05:42 | CON.PCM_ITS ---
Problem List (1) Foot pain, right Status: Acute Reason for Consult Date of Consultation: 08/11/18 History of Present Illness: The patient is a 82 year old F who I have been asked to see by Dr. Gilliam for evaluation of suspected critical ischemia of her right foot. A written copy of my surgical consult recommendations will be found in electronic medical records. I saw this patient recently July 20, 2018 in the office. She was at that point complaining of numbness and tingling of her toes on the ball of her feet constantly 24/7. She is able to walk 20-25 feet with right calf claudication greater than left. July 23, 2017 I had performed a left lower extremity arteriogram partially with carbon dioxide partially with contrast material because of her chronic renal insufficiency. She had complete occlusion of the left popliteal and tibioperoneal trunk and proximal left peroneal. I treated her with a 4 x 2 Powerflex angioplasty of the popliteal and a 2.5 x 120 mm nail across angioplasty of the peroneal. She did have recanalization with dissections that were fortunately not flow-limiting. At that time she had an ulcer of the foot which was able to be healed. On July 06, 2018 at the [facility] she had PVRs. The right DP and PT Doppler waveforms were both monophasic with the ankle-brachial indices at 0.35 and 0.47 at rest. They had diminished from the previous June 22, 2017 when the ABIs on the right were 1.07 and on the left 0.41. Currently the left ABIs for the DP and PT are 0.4 and 0.45. That was unchanged from her previous endovascular intervention. On her presentation to the office she was on both aspirin and clopidogrel. And as of February 10, 2018 her BUN was 25 and creatinine 1.2 with a GFR of 43. Her total cholesterol at that time was 288 and triglycerides 520. She had had a 2-3-day history of acute chest tightness and respiratory concerns and so she was referred to medicine to assist with that at that time. On this occasion she was admitted back on August 03, 2018 with melena hematochezia coffee-ground emesis. She had been taking Excedrin for her pain. Her hemoglobin on presentation was 10 and hematocrit 31.7. Her BUN was 68 creatinine 1.3. On her presentation she was felt to have acute blood loss anemia stage III chronic renal failure heart failure hypertension as well as a permanent pacemaker peripheral arterial occlusive disease hypothyroidism and parathyroid tumor. Calcium level checks over the past several days include a 9.2 on July 27, 2018 and a high upon her admission 08/03/2018 at 9.9. There were concerns recently about a right hand infection. There was questionable whether this is related to a pulse oximeter. But the patient has erythema and swelling of the right third and fourth digits. On August 04, [address] Bazan she underwent an upper endoscopy. That showed an oozing cratered duodenal ulcer with clot. That was injected with epinephrine. She had a repeat examination the following day August 05, 2018. The duodenal ulcer at that time was not bleeding. Her hemoglobin currently appears stable at 9. She is received a total of 3 units of blood transfusion. She is currently off of all of her anticoagulation Past Medical History Past Medical History (Chronic Problems): Chronic Problems (Last Reviewed 08/03/18 @ 07:33 by Messi Hendricks MD) Arrhythmia (Chronic) COPD (chronic obstructive pulmonary disease) (Chronic) Coronary artery disease (Chronic) Peripheral arterial disease (Chronic) Medical History: Medical History (Last Reviewed 08/03/18 @ 07:33 by Messi Hendricks MD) Respiratory abnormality (Acute) J98.9 CAD (coronary artery disease) I25.10 History of breast cancer Z85.3 Hypothyroidism E03.9 PAD (peripheral artery disease) I73.9 Pacemaker Z95.0 COPD (chronic obstructive pulmonary disease) J44.9 HTN (hypertension) I10 Allergies acetaminophen [From Percocet] Allergy (Verified 08/03/18 02:29) Other alendronate sodium [From Fosamax] Allergy (Verified 08/03/18 02:29) Other nitrofurantoin [From Macrodantin] Allergy (Verified 08/03/18 02:29) Rash oxycodone [From Percocet] Allergy (Verified 08/03/18 02:29) Other quinapril [From Accupril] Allergy (Verified 08/03/18 02:29) Rash atorvastatin [From Lipitor] Adverse Reaction (Verified 08/03/18 02:29) Pain in joints diclofenac [From Arthrotec 50] Adverse Reaction (Verified 08/03/18 02:29) Upset Stomach misoprostol [From Arthrotec 50] Adverse Reaction (Verified 08/03/18 02:29) Upset Stomach Home Medications: Ambulatory Orders Medication Instructions Recorded Clopidogrel Bisulfate [Plavix] 75 mg PO DAILY 12/15/16 Digoxin [Lanoxin] 125 mcg PO DAILY 07/08/17 Furosemide [Lasix] 20 mg PO DAILY 07/08/17 Levothyroxine [Synthroid] 100 mcg PO DAILY 07/08/17 Lorazepam [Ativan] 0.5 mg PO QHS PRN PRN 07/08/17 Losartan Potassium 100 mg PO DAILY 07/08/17 Nitroglycerin [Nitrostat] 0.4 mg SL PRN PRN 07/08/17 Spironolactone [Aldactone] 25 mg PO DAILY 07/08/17 Aspirin/Acetaminophen/Caffeine 1 each PO Q6H PRN 08/03/18 [Headache Relief Tablet] Carvedilol [Coreg] 25 mg PO BID 08/03/18 Cholecalciferol (VIT D3) [Vitamin 2,000 unit PO DAILY 08/03/18 D] Gabapentin [Neurontin] 100 mg PO BIDCM 08/03/18 Meloxicam 15 mg PO DAILY 08/03/18 Risedronate [Actonel] 35 mg PO QWEEK 08/03/18 Surgical History: Surgical History (Last Reviewed 08/03/18 @ 07:33 by Messi Hendricks MD) History of coronary artery bypass graft x 3 Z95.1 S/P peripheral artery angioplasty with stent placement Z95.820 Status post peripheral artery angioplasty Z98.62 Lives: Spouse/ Significant Other Smoking Status: Never smoker - *Family History Maternal Family History: Family History (Last Reviewed 08/03/18 @ 07:34 by Messi Hendricks MD) Sister Breast cancer Hypertension History Items: No pertinent history Patient Problems: Active and Suspected Problems (Last Reviewed 08/03/18 @ 07:33 by Messi Hendricks MD) Acute blood loss anemia (Acute) Foot pain, right (Acute) - Physical Exam General: Alert, Cooperative, No apparent distress Cardiovascular: Regular rate, Regular Rhythm, - - Bilateral femorals are 3+. Bilateral popliteals not palpable. Bilateral DP and PT pulses are not palpable but they are dopplerable. Extremities: - - The right foot is mildly hyperemic. It is warm to touch. There is mildly diminished capillary refill. She is exquisitely tender to even light touch. There is some mild erythema of the first metatarsal phalangeal joint. She is tender on the plantar surface. She is tender to palpation of the right posterior calf. The left foot is slightly more pale and cooler than the right. The left foot is nontender. There is less capillary refill on the left than on the right The right hand demonstrates mild erythema and nonspecific swelling of the right third and fourth digits Vital Signs Temp Pulse Resp BP Pulse Ox 97.6 F L 60 16 127/55 H 95 08/11/18 04:10 08/11/18 04:10 08/11/18 04:10 08/11/18 04:10 08/11/18 04:10 Oxygen Flow Rate (L/min) 2 Oxygen Delivery Method Room Air Weight: 118 lb 13.266 oz Body Mass Index (BMI) 21.9 Intake and Output for Last 24 Hours 08/09/18 08/10/18 08/11/18 23:59 23:59 23:59 Intake Total 1033 / 1033 379 / 379 Output Total 1500 / 1500 400 / 400 200 / 200 Balance -467 / -467 -400 / -400 179 / 179 Microbiology Past 72 Hours 08/08/18 05:10 Blood Culture - Preliminary Blood Culture (Wb) - Right Forearm No growth in 48 hours. 08/08/18 05:08 Blood Culture - Preliminary Blood Culture (Wb) - Right Hand No growth in 48 hours. 08/08/18 18:00 Urine Culture - Preliminary Urine Catheter - Catheter Culture exhibits no growth. Laboratory Tests Past 24 Hrs 08/10/18 08/10/18 08/10/18 05:28 05:28 05:28 WBC 12.2 H RBC 2.91 L Hgb 9.0 L Hct 29.4 L MCV 101.0 H MCH 30.9 MCHC 30.6 L RDW 16.7 H RDW Differential 59.7 H Plt Count 246 MPV 9.9 Immature Gran % (Auto) 0.200 Neut % (Auto) 81.9 H Lymph % (Auto) 6.0 L [place] % (Auto) 11.5 H Eos % (Auto) 0.2 Baso % (Auto) 0.2 Absolute Neuts (auto) 10.0 H Absolute Lymphs (auto) 0.73 L Total Counted Not Reportable Sodium 134 L Potassium 3.9 Chloride 95 L Carbon Dioxide 30.0 Anion Gap 9 BUN 27 H Creatinine 1.71 H Estim Creat Clear Calc 19.47 Est GFR (MDRD) Af Amer 37 L Est GFR (MDRD) Non-Af 30 L BUN/Creatinine Ratio 15.8 Glucose 120 H Calcium 9.0 Phosphorus 3.3 AST 15 Total Creatine Kinase 33 Assessment/Plan All Active Problems (Last Reviewed 08/03/18 @ 07:33 by Messi Hendricks MD) Acute blood loss anemia (Acute) Foot pain, right (Acute) Respiratory abnormality (Acute) CAP (community acquired pneumonia) (Acute) Severe sepsis (Acute) Peripheral vascular disease (Acute) Although this patient has known bilateral lower extremity multiside minimal peripheral vascular occlusive disease in the infrageniculate position I do not believe that her current right foot pain and right calf pain and right hand digit problems are related to peripheral vascular disease. I suspect that this is a systemic inflammatory process. Etiology to that is not clear. She has history of a possible parathyroid tumor but I am not seeing significant hypercalcemia. Do not know whether in the right foot this could be symptoms of gout. Not clear whether this is other rheumatologic condition. The patient is at risk for vascular intervention secondary to her chronic renal insufficiency and her recent upper GI bleed with duodenal ulcer placing anticoagulation and antiplatelet agents at significant risk. The degree of pain that she has in the right foot and the location of the pain and the right calf focal tenderness suggest other etiology. If anything the right foot is clearly more warm than the left. There appears to be a hyperemic inflammatory response. I am not recommending vascular intervention at this setting but rather investigation for potential other etiology. I appreciate the opportunity of assisting with her surgical care I will obtain a sed rate and uric acid. Maury Fuller M.D., F.A.C.S.
[2018-08-11] MEDS: Levothyroxine 100 MCG Tablet PO (05:43)
[2018-08-11 06:54] LABS: Anion Gap 12 (5-15); BUN 41 mg/dL (7-18); BUN/Creat Ratio 21.4 RATIO (10-20); Chloride 98 mmol/L (98-107); Creatinine, Serum 1.92 mg/dL (0.55-1.02); EST Glomerular Filtration Rate 27 mL/min (>60); Est Glom Filt Rate - Afr Amer 32 mL/min (>60); Estimated Creatinine Clearance 17.34 ml/min; Glucose 107 mg/dL (74-106); Potassium 4.2 mmol/L (3.5-5.1); Sodium Level 136 mmol/L (136-145)
[2018-08-11 07:01] LABS: Absolute Lymphocyte Count 1.04 X10^3/ul (0.83-4.51); Absolute Neutrophil Count 8.7 X10^3/uL (2.0-7.7); Basophil# 0.02 X10^3/uL; Basophil% 0.2 % (0-1); Eosinophil# 0.03 X10^3/uL; Eosinophils% 0.3 % (0-5); Hematocrit 27.2 % (37-47); Hemoglobin 8.3 g/dl (12.0-15.0); Lymphocyte # 1.04 X10^3/ul (4.0); Lymphocyte % 9.5 % (19-41); Mean Corp Hgb Conc 30.5 g/gl (32-36); Mean Corpuscular Hgb 30.5 pg (27.0-32.0); Mean Platelet Vol. 10.8 fl (6.2-12.0); Monocyte# 1.15 X10^3/uL; Monocyte% 10.5 % (0-10); Neutrophil # 8.68 X10^3/uL (2.7-7.7); Neutrophil % 79.3 % (47-70); Platelet Count 276 K/mm3 (150-450); RBC Distribution Width CV 15.9 % (11.6-14.6); RBC Distribution Width SD 55.1 fl (35.1-43.9); Red Blood Count 2.72 M/mm3 (4.2-5.4); White Blood Count 10.9 K/mm3 (4.4-11.0)
[2018-08-11 07:02] LABS: POSITIVE COUNT NO; POSITIVE DIFFERENTIAL NO; POSITIVE MORPHOLOGY NO
[2018-08-11 07:04] LABS: Erythrocyte Sedimentation Rate 47 mm/hr (0-30)
[2018-08-11 07:32] LABS: Uric Acid 9.9 mg/dL (2.6-6.0)
[2018-08-11 09:40] VITALS: BP 147/53; PULSE 61; RESP 16; TEMP 36.8; O2SAT 99
[2018-08-11 09:46] LABS: Hematocrit 27.1 % (37-47); Hemoglobin 8.6 g/dl (12.0-15.0)
[2018-08-11 09:53] VITALS: PULSE 60
[2018-08-11] MEDS: Digoxin 125 MCG Tablet PO (09:53)
[2018-08-11] MEDS: Pantoprazole Sodium 40 MG Tablet PO ×2 (09:53→22:41)
[2018-08-11] MEDS: Gabapentin 100 MG Capsule PO ×2 (09:54→16:44)
[2018-08-11] MEDS: Carvedilol 12.5 MG Tablet PO ×2 (09:54→22:41)
[2018-08-11] MEDS: Spironolactone 25 MG Tablet PO (09:54)
[2018-08-11] MEDS: predniSONE 20 MG Tablet PO (09:54)
[2018-08-11] MEDS: Losartan Potassium 100 MG Tablet PO (09:54)
[2018-08-11] MEDS: Magnesium Oxide 400 MG Tablet PO (09:54)
[2018-08-11] MEDS: HYDROcodone Bitartrate/Apap 5/325 Tablet PO ×3 (10:07→22:56)
[2018-08-11] MEDS: Psyllium 1 PACKET PO (10:10)
--- NOTE | 2018-08-11 10:54 | PCM.PROGNOTE ---
Patient Problems: Active and Suspected Problems (Last Reviewed 08/03/18 @ 07:33 by Messi Hendricks MD) Acute blood loss anemia (Acute) Foot pain, right (Acute) Subjective: All events of the past 24 hours been reviewed. I reviewed Dr. Fuller's consult from this a.m. and appreciate his input. He does not feel that the pain in the right lower extremity is secondary to peripheral vascular disease and suspects an inflammatory process. The dorsum of the right foot, right ankle and first MTP joint are all red and very warm to touch today. This is distinctly different from yesterday. She has exquisite tenderness to even light touch on the dorsum of her foot. Uric acid is 9.9. Hemoglobin is stable and the patient has not had a bowel movement in the past few days. Unfortunately even with hydration and discontinuation of Lasix the creatinine is increased to 1.92 today. Urine output on 08/10/2018 was decreased at 400 cc. Urine output has picked up since fluids yesterday. Urine output overnight was 550 cc. She denies shortness of breath today. She is having some myoclonic jerks. She denies chest pain and she is not confused. - Physical Exam General: Alert, Oriented x3, Cooperative, - - having myoclonic jerks HEENT: Atraumatic, PERRLA, EOMI, Normocephalic Oral: Dry Mucosa - but better than yesterday Lungs: Clear to auscultation, Diminished Cardiovascular: Regular rate, Regular Rhythm, Normal S1, Normal S2, No rub noted, No Gallop Abdomen: Bowel Sounds Present, Soft, Non Tender Extremities: - - She has increased edema of the R ankle today with erythema and increased warmth to touch at ankle medially, dorsum of the foot and the first MTP.......very tender to even light touch. No openings in the skin Skin: No rashes, No breakdown Neurological: - - Having myoclonic jerks-likely secondary to renal failure Psych/Mental Status: Appropriate Vital Signs Temp Pulse Resp BP Pulse Ox 98.3 F 60 16 147/53 H 99 08/11/18 09:40 08/11/18 09:53 08/11/18 09:40 08/11/18 09:40 08/11/18 09:40 Oxygen Flow Rate (L/min) 2 Oxygen Delivery Method Room Air Weight: 118 lb 13.266 oz Body Mass Index (BMI) 21.9 Intake and Output for Last 24 Hours 08/09/18 08/10/18 08/11/18 23:59 23:59 23:59 Intake Total 1033 / 1033 650 / 650 Output Total 1500 / 1500 400 / 400 550 / 550 Balance -467 / -467 -400 / -400 100 / 100 Microbiology Past 72 Hours 08/08/18 18:00 Urine Culture - Final Urine Catheter - Catheter Culture exhibits no growth. 08/08/18 05:10 Blood Culture - Preliminary Blood Culture (Wb) - Right Forearm No growth in 48 hours. 08/08/18 05:08 Blood Culture - Preliminary Blood Culture (Wb) - Right Hand No growth in 48 hours. Laboratory Tests Past 24 Hrs 08/10/18 08/11/18 08/11/18 05:28 06:10 06:10 WBC 10.9 RBC 2.72 L Hgb 8.3 L Hct 27.2 L MCV 100.0 H MCH 30.5 MCHC 30.5 L RDW 15.9 H RDW Differential 55.1 H Plt Count 276 MPV 10.8 Immature Gran % (Auto) 0.200 Neut % (Auto) 79.3 H Lymph % (Auto) 9.5 L [place] % (Auto) 10.5 H Eos % (Auto) 0.3 Baso % (Auto) 0.2 Absolute Neuts (auto) 8.7 H Absolute Lymphs (auto) 1.04 Total Counted Not Reportable ESR 47 H Sodium 136 Potassium 4.2 Chloride 98 Carbon Dioxide 26.0 Anion Gap 12 BUN 41 H Creatinine 1.92 H Estim Creat Clear Calc 17.34 Est GFR (MDRD) Af Amer 32 L Est GFR (MDRD) Non-Af 27 L BUN/Creatinine Ratio 21.4 H Glucose 107 H Uric Acid Calcium 9.0 AST 15 Total Creatine Kinase 33 08/11/18 08/11/18 06:10 09:33 WBC RBC Hgb 8.6 L Hct 27.1 L MCV MCH MCHC RDW RDW Differential Plt Count MPV Immature Gran % (Auto) Neut % (Auto) Lymph % (Auto) [place] % (Auto) Eos % (Auto) Baso % (Auto) Absolute Neuts (auto) Absolute Lymphs (auto) Total Counted ESR Sodium Potassium Chloride Carbon Dioxide Anion Gap BUN Creatinine Estim Creat Clear Calc Est GFR (MDRD) Af Amer Est GFR (MDRD) Non-Af BUN/Creatinine Ratio Glucose Uric Acid 9.9 H Calcium AST Total Creatine Kinase Medical Necessity - Tobacco Use Smoking Status: Never smoker Assessment/Plan All Active Problems (Last Reviewed 08/03/18 @ 07:33 by Messi Hendricks MD) Acute blood loss anemia (Acute) Foot pain, right (Acute) Respiratory abnormality (Acute) CAP (community acquired pneumonia) (Acute) Severe sepsis (Acute) Peripheral vascular disease (Acute) Impressions 1. UGI bleed due to PUD with duodenal Ulcer - suspect related to her chronic use of Excedrin......despite stage 4 CRF 2. anemia due to acute bleeding + anemia of chronic renal failure- transfused with 3 units PRBC's and the HGB is stable 3. LV dysfunction with a 35% -40% EF 4. BARTH's - takes 2-3 Excedrin every day.....tells me that Tylenol does not work for her 5. CAD 6. PVD - severe. JULIET on the right is 0.35 DP and 0.47 PT. and the waveform is monophasic. The left JULIET for the dorsalis pedis and posterior tibial arteries are 0.4 and 0.45 respectively. Had been on ASA and Plavix however, both the ASA and Plavix were discontinued at admission because of acute UGI bleed secondary to duodenal ulcer 7. HTN 8. COPD 9. increased kyphosis 10. Hypothyroidism - had thyroidectomy for goiter 11. 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 hx of breast CA - S/P L mastectomy 13. Stage 4 CRF with ARF 14. calf pain - can not anticoagulate due to the UGI bleed. Venous US of the LE's is negative for DVT. She has severe PVD of both LE's with JULIET's less than 0.5 BL 15. decompensated systolic CHF due to volume OL - resolved 16. cellulitis of the R hand - blood cultures negative. Continues to have low grade fever but the finger is no longer warm to touch and the erythemqa is much improved. The pain is better in the finger BUT worse in the R ankle/foot and knee 17. Hyperuricemia 18. Acute gouty arthritis Consult Dr. Michelle Hull for acute on chronic renal failure Start prednisone 20 mg daily Continue Protonix twice daily Okay to start DVT prophylaxis with subcutaneous heparin per Dr. Bazan Hemoglobin is stable Recheck lab in the a.m. If she responds favorably to prednisone and the fevers and leukocytosis resolved we will likely discontinue the cefepime Need SNF at discharge-discussed with discharge planning Check the digoxin level today Hold digoxin, ARB and spironolactone for now in light of acute renal failure Hemoccult stool Renal profile in the a.m. Code Visit Inpatient E&M: 91045 Subs Hosp L3
[2018-08-11 12:44] LABS: Digoxin Level 2.43 ng/mL (0.80-2.00)
--- NOTE | 2018-08-11 12:57 | PCM.CONS.R ---
Consultation - Renal 08/11/18 PCP/ Referring MD: Requesting physician: Dr. Gilliam Primary care physician: Sudhir Fuller III, MD Reason for Consultation:: acute renal failure - History of Present Illness History of Present Illness: The patient is a 82 year old F admitted on 08/03 for GI bleed with coffee ground emesis, hematochezia and melena. She complained of abdominal pain. She takes excedrin on a chronic basis 1 tablet every 6hrs for leg pain and meloxicam at home. PMH significant for HTN, CAD s/p CABG 12 years ago and stents about 15 years ago on aspirin and Plavix, PAD with claudication s/p balloon angioplasty, goiter s/p thyroidectomy, parathyroid tumor, permanent pacemaker, cardiomyopathy LVEF 35%, heart failure on Lasix, spironolactone and digoxin at home currently discontinued due to renal failure. She had a CT abdomen on 08/03 with incidental right renal atrophy she was not aware of in the past. Creatinine on admit was 1.3 improved to 1.0 on 08/08. Creatinine increased to 1.9 today. Lasix, spironolactone, and Losartan were discontinued. She received a fluid bolus last night. Creatinine has been at 1.2 to 1.3 on review of [facility] records. She developed left knee and right foot pain, swelling and tenderness in third and fourth mid DIP joint in right hand. Uric acid level was found to be elevated at 9.9. Her transfer for OSH was canceled. She is on prednisone for acute gout. Her swelling and tenderness improved. She has poor intake, poor appetite. She denies CP, SOB, or edema. Urine output poor. Denies nausea, vomiting, diarrhea. She was scheduled to f/u with Dr Raymond at [facility] for hyperparathyroidism with elevated calcium at 10.9 to 11.1 since this past summer with PTH 70 to 110. She had a parathyroid scan done in [place] on 06/23/18 that showed enhanced lesion in left side of neck. She was prescribed sensipar by her pcp but has not started it yet. Calcium has been 8.6 to 9.0 during current hospitalization. - Allergies Allergies: Allergies acetaminophen [From Percocet] Allergy (Verified 08/03/18 02:29) Other alendronate sodium [From Fosamax] Allergy (Verified 08/03/18 02:29) Other nitrofurantoin [From Macrodantin] Allergy (Verified 08/03/18 02:29) Rash oxycodone [From Percocet] Allergy (Verified 08/03/18 02:29) Other quinapril [From Accupril] Allergy (Verified 08/03/18 02:29) Rash atorvastatin [From Lipitor] Adverse Reaction (Verified 08/03/18 02:29) Pain in joints diclofenac [From Arthrotec 50] Adverse Reaction (Verified 08/03/18 02:29) Upset Stomach misoprostol [From Arthrotec 50] Adverse Reaction (Verified 08/03/18 02:29) Upset Stomach - Current Medications Current Medications: Current Medications Hydrocodone Bitart/Acetaminophen ([place] 5mg-325mg) 1 tablet PO Q6H PRN PRN PRN Reason: SEVERE PAIN (6-10) Last Admin: 08/11/18 10:07 Dose: 1 tablet Carvedilol (Coreg) 12.5 mg PO BID [facility] Last Admin: 08/11/18 09:54 Dose: 12.5 mg [facility] Last Admin: 08/11/18 09:54 Dose: 100 mg Heparin Sodium (Porcine) (Heparin Na) 5,000 unit SC Q12 [facility] Cefepime HCl 1 gm/ Sodium (Chloride) 50 mls @ 100 mls/hr IV Q24 [facility] Last Admin: 08/11/18 10:10 Dose: 100 mls/hr Labetalol HCl (Trandate) 10 mg IV Q4H PRN PRN PRN Reason: sbp>160 Levothyroxine Sodium (Synthroid) 100 mcg PO DAILY@0600 [facility] Last Admin: 08/11/18 05:43 Dose: 100 mcg Lorazepam (Ativan) 0.5 mg PO QHS PRN PRN PRN Reason: INSOMNIA Last Admin: 08/10/18 23:11 Dose: 0.5 mg Magnesium Hydroxide (Milk Of Magnesia) 30 ml PO DAILY PRN PRN PRN Reason: Constipation Magnesium Oxide ([facility]-Ox 400) [facility] Last Admin: 08/11/18 09:54 Dose: 400 mg Morphine Sulfate () 2 - 4 mg IV Q2H PRN PRN PRN Reason: SEVERE PAIN (6-10/10) Last Admin: 08/10/18 08:12 Dose: 2 mg Ondansetron HCl (Zofran) 4 mg IV Q6H PRN PRN PRN Reason: NAUSEA/VOMITING Last Admin: 08/08/18 06:15 Dose: 4 mg Pantoprazole Sodium (Protonix) 40 mg PO BID [facility] Last Admin: 08/11/18 09:53 Dose: 40 mg Prednisone () 20 mg PO DAILY@0800 [facility] Psyllium Hydrophilic Mucilloid (Metamucil) 1 packet PO DAILY [facility] Last Admin: 08/11/18 10:10 Dose: 1 packet Sodium Chloride () 5 - 15 ml IV UD PRN PRN Reason: SALINE FLUSH Last Admin: 08/10/18 15:40 Dose: 10 ml Throat Lozenges (Cepacol Sore Throat Lozenge) 1 lozenge MUCOUS MEM Q4H PRN PRN PRN Reason: SORE THROAT Last Admin: 08/06/18 00:57 Dose: 1 lozenge - Past Medical History Past Medical History (Chronic Problems): Chronic Problems (Last Reviewed 08/03/18 @ 07:33 by Messi Hendricks MD) Arrhythmia (Chronic) COPD (chronic obstructive pulmonary disease) (Chronic) Coronary artery disease (Chronic) Peripheral arterial disease (Chronic) - Past Surgical History Surgical History: pacemaker implantation, - - fem artery bypass - Social History Smoking Status: Never smoker - Family History Maternal Family History: Family History (Last Reviewed 08/03/18 @ 07:34 by Messi Hendricks MD) Sister Breast cancer Hypertension History Items: No pertinent history Review of Systems Constitutional: Reports: Anorexia - dry mouth, Weakness, Fatigue. Denies: Chills, Fever Eyes: Denies: Double vision HEENT: Denies: Visual Changes Cardiovascular: Reports: Chest Pain - with exertion, - - CAD. Denies: Edema, Syncope Respiratory: Denies: Cough, Shortness of Breath Gastrointestinal: Reports: Abdominal Pain, Hematemesis, Hematochezia. Denies: Constipation, Diarrhea, Nausea, Vomiting Genitourinary: Denies: Dysuria Musculoskeletal: Reports: Joint swelling - fingers right hand, left knee, right foot gout, - - DJD, - - claudication Skin: Denies: Rash Neurological: Reports: Balance problems Hematologic/ Lymphatic: Denies: Anemia, Hx of blood clot Patient Problems: Active and Suspected Problems (Last Reviewed 08/03/18 @ 07:33 by Messi Hendricks MD) Acute blood loss anemia (Acute) Foot pain, right (Acute) - Physical Exam General: Alert, Oriented x3, Cooperative, No apparent distress, - - thin HEENT: PERRLA, EOMI Oral: Dry Mucosa Neck: Supple, No JVD Lungs: Clear to auscultation Cardiovascular: Regular rate, Murmur, No rub noted Abdomen: Bowel Sounds Present, Soft, Non Tender, Non-Distended, No Hepato-splenomegaly Extremities: No edema, Diminished Peripheral Pulses Musculoskeletal: Cachexia, Muscle Wasting, - - tender, swollen right 3rd, 4th mid DIP, right foot pain to light tough, DJD changes Lymphatic: No Cervical, Supraclavicular, or Inguinal Adenopathy Neurological: Cranial nerves II-XII grossly intact Psych/Mental Status: Normal Affect, Appropriate, Alert and oriented to time, place, person, mood and affect Vital Signs Temp Pulse Resp BP Pulse Ox 98.3 F 60 16 147/53 H 99 08/11/18 09:40 08/11/18 09:53 08/11/18 09:40 08/11/18 09:40 08/11/18 09:40 Oxygen Flow Rate (L/min) 2 Oxygen Delivery Method Room Air Weight: 53.9 kg Body Mass Index (BMI) 21.9 Intake and Output for Last 24 Hours 08/09/18 08/10/18 08/11/18 23:59 23:59 23:59 Intake Total 1033 / 1033 650 / 650 Output Total 1500 / 1500 400 / 400 550 / 550 Balance -467 / -467 -400 / -400 100 / 100 Microbiology Past 72 Hours 08/08/18 18:00 Urine Culture - Final Urine Catheter - Catheter Culture exhibits no growth. 08/08/18 05:10 Blood Culture - Preliminary Blood Culture (Wb) - Right Forearm No growth in 48 hours. 08/08/18 05:08 Blood Culture - Preliminary Blood Culture (Wb) - Right Hand No growth in 48 hours. Laboratory Tests Past 24 Hrs 08/10/18 08/11/18 08/11/18 05:28 06:10 06:10 WBC 10.9 RBC 2.72 L Hgb 8.3 L Hct 27.2 L MCV 100.0 H MCH 30.5 MCHC 30.5 L RDW 15.9 H RDW Differential 55.1 H Plt Count 276 MPV 10.8 Immature Gran % (Auto) 0.200 Neut % (Auto) 79.3 H Lymph % (Auto) 9.5 L [place] % (Auto) 10.5 H Eos % (Auto) 0.3 Baso % (Auto) 0.2 Absolute Neuts (auto) 8.7 H Absolute Lymphs (auto) 1.04 Total Counted Not Reportable ESR 47 H Sodium 136 Potassium 4.2 Chloride 98 Carbon Dioxide 26.0 Anion Gap 12 BUN 41 H Creatinine 1.92 H Estim Creat Clear Calc 17.34 Est GFR (MDRD) Af Amer 32 L Est GFR (MDRD) Non-Af 27 L BUN/Creatinine Ratio 21.4 H Glucose 107 H Uric Acid Calcium 9.0 AST 15 Total Creatine Kinase 33 Digoxin 08/11/18 08/11/18 08/11/18 06:10 09:33 11:20 WBC RBC Hgb 8.6 L Hct 27.1 L MCV MCH MCHC RDW RDW Differential Plt Count MPV Immature Gran % (Auto) Neut % (Auto) Lymph % (Auto) [place] % (Auto) Eos % (Auto) Baso % (Auto) Absolute Neuts (auto) Absolute Lymphs (auto) Total Counted ESR Sodium Potassium Chloride Carbon Dioxide Anion Gap BUN Creatinine Estim Creat Clear Calc Est GFR (MDRD) Af Amer Est GFR (MDRD) Non-Af BUN/Creatinine Ratio Glucose Uric Acid 9.9 H Calcium AST Total Creatine Kinase Digoxin 2.43 H* Clinical Impression(s) from Imaging Studies Abdomen/Pelvis CT 08/03/18 02:45 IMPRESSION: 1. Diverticulosis coli. No diverticulitis or other colitis identified. 2. Cardiomegaly with permanent transvenous pacemaker in place. 3. Chronic findings include atrophic right kidney, small hiatal hernia, and atherosclerotic, ectatic aorta. Individualized dose optimization techniques were used for this CT. at 0451 Reported and signed by: Brant Hatfield MD Electronically Signed: Brant Hatfield, at 4:49 EST Tel , Service support , Chest X-Ray 08/08/18 05:00 IMPRESSION: Stable chest, no acute cardiopulmonary disease. Mild cardiomegaly. COPD. Electronically Signed: Michael Abebe MD at 7:25 EST , Service support , Hand X-Ray 08/08/18 11:57 IMPRESSION: Multifocal osteoarthritis as described. A small erosion is noted involving the ulnar base of the fifth proximal phalanx. Electronically Signed: Ha Collazo MD at 14:21 EST Tel , Service support , Assessment/Plan All Active Problems (Last Reviewed 08/03/18 @ 07:33 by Messi Hendricks MD) Acute blood loss anemia (Acute) Foot pain, right (Acute) Respiratory abnormality (Acute) CAP (community acquired pneumonia) (Acute) Severe sepsis (Acute) Peripheral vascular disease (Acute) 1. SUNI suspect prerenal event from poor oral intake while on diuretics, ARB. Agree with discontinuation of Losartan, lasix, spironolactone. Suggest gentle hydration. Creatinine baseline 1.0 increased to 1.9 with atrophic right kidney incidental finding on CT abdomen 08/03 2. HTN stable 3. Claudication with PAD s/p bypass 4. CAD s/p CABG, PCI, CHF hx with LVEF 35%, PPM 5. GI bleed due to excessive excedrin use, NSAIDs, ASA, plavix. hgb stable 6. Primary vs tertiary hyperparathyroid with abnormal scan, hypercalcemia. Check PTH, corrected calcium. 7. Goiter s/p thyroidectomy 8. Hyperuricemia with gout in hand, foot on prednisone. Uric acid 9.9. Consider allopurinol after acute event resolved. Consider colchicine 0.6mg daily.
--- NOTE | 2018-08-11 13:00 | CON.PCM_ITS ---
Consultation - Renal 08/11/18 PCP/ Referring MD: Requesting physician: Dr. Gilliam Primary care physician: Sudhir Fuller III, MD Reason for Consultation:: acute renal failure - History of Present Illness History of Present Illness: The patient is a 82 year old F admitted on 08/03 for GI bleed with coffee ground emesis, hematochezia and melena. She complained of abdominal pain. She takes excedrin on a chronic basis 1 tablet every 6hrs for leg pain and meloxicam at home. PMH significant for HTN, CAD s/p CABG 12 years ago and stents about 15 years ago on aspirin and Plavix, PAD with claudication s/p balloon angioplasty, goiter s/p thyroidectomy, parathyroid tumor, permanent pacemaker, cardiomyopathy LVEF 35%, heart failure on Lasix, spironolactone and digoxin at home currently discontinued due to renal failure. She had a CT abdomen on 08/03 with incidental right renal atrophy she was not aware of in the past. Creatinine on admit was 1.3 improved to 1.0 on 08/08. Creatinine increased to 1.9 today. Lasix, spironolactone, and Losartan were discontinued. She received a fluid bolus last night. Creatinine has been at 1.2 to 1.3 on review of [facility] records. She developed left knee and right foot pain, swelling and tenderness in third and fourth mid DIP joint in right hand. Uric acid level was found to be elevated at 9.9. Her transfer for OSH was canceled. She is on prednisone for acute gout. Her swelling and tenderness improved. She has poor intake, poor appetite. She denies CP, SOB, or edema. Urine output poor. Denies nausea, vomiting, diarrhea. She was scheduled to f/u with Dr Raymond at [facility] for hyperparathyroidism with elevated calcium at 10.9 to 11.1 since this past summer with PTH 70 to 110. She had a parathyroid scan done in [place] on 06/23/18 that showed enhanced lesion in left side of neck. She was prescribed sensipar by her pcp but has not started it yet. Calcium has been 8.6 to 9.0 during current hospitalization. - Allergies Allergies: Allergies acetaminophen [From Percocet] Allergy (Verified 08/03/18 02:29) Other alendronate sodium [From Fosamax] Allergy (Verified 08/03/18 02:29) Other nitrofurantoin [From Macrodantin] Allergy (Verified 08/03/18 02:29) Rash oxycodone [From Percocet] Allergy (Verified 08/03/18 02:29) Other quinapril [From Accupril] Allergy (Verified 08/03/18 02:29) Rash atorvastatin [From Lipitor] Adverse Reaction (Verified 08/03/18 02:29) Pain in joints diclofenac [From Arthrotec 50] Adverse Reaction (Verified 08/03/18 02:29) Upset Stomach misoprostol [From Arthrotec 50] Adverse Reaction (Verified 08/03/18 02:29) Upset Stomach - Current Medications Current Medications: Current Medications Hydrocodone Bitart/Acetaminophen ([place] 5mg-325mg) 1 tablet PO Q6H PRN PRN PRN Reason: SEVERE PAIN (6-10) Last Admin: 08/11/18 10:07 Dose: 1 tablet Carvedilol (Coreg) 12.5 mg PO BID [facility] Last Admin: 08/11/18 09:54 Dose: 12.5 mg [facility]) [facility] Last Admin: 08/11/18 09:54 Dose: 100 mg Heparin Sodium (Porcine) (Heparin Na) 5,000 unit SC Q12 [facility] Cefepime HCl 1 gm/ Sodium (Chloride) 50 mls @ 100 mls/hr IV Q24 [facility] Last Admin: 08/11/18 10:10 Dose: 100 mls/hr Labetalol HCl (Trandate) 10 mg IV Q4H PRN PRN PRN Reason: sbp>160 Levothyroxine Sodium (Synthroid) 100 mcg PO DAILY@0600 [facility] Last Admin: 08/11/18 05:43 Dose: 100 mcg Lorazepam (Ativan) 0.5 mg PO QHS PRN PRN PRN Reason: INSOMNIA Last Admin: 08/10/18 23:11 Dose: 0.5 mg Magnesium Hydroxide (Milk Of Magnesia) 30 ml PO DAILY PRN PRN PRN Reason: Constipation Magnesium Oxide (Mag-Ox 400) [facility] Last Admin: 08/11/18 09:54 Dose: 400 mg Morphine Sulfate () 2 - 4 mg IV Q2H PRN PRN PRN Reason: SEVERE PAIN (6-10/10) Last Admin: 08/10/18 08:12 Dose: 2 mg Ondansetron HCl (Zofran) 4 mg IV Q6H PRN PRN PRN Reason: NAUSEA/VOMITING Last Admin: 08/08/18 06:15 Dose: 4 mg Pantoprazole Sodium (Protonix) 40 mg PO BID [facility] Last Admin: 08/11/18 09:53 Dose: 40 mg Prednisone () 20 mg PO DAILY@0800 [facility] Psyllium Hydrophilic Mucilloid (Metamucil) 1 packet PO DAILY [facility] Last Admin: 08/11/18 10:10 Dose: 1 packet Sodium Chloride () 5 - 15 ml IV UD PRN PRN Reason: SALINE FLUSH Last Admin: 08/10/18 15:40 Dose: 10 ml Throat Lozenges (Cepacol Sore Throat Lozenge) 1 lozenge MUCOUS MEM Q4H PRN PRN PRN Reason: SORE THROAT Last Admin: 08/06/18 00:57 Dose: 1 lozenge - Past Medical History Past Medical History (Chronic Problems): Chronic Problems (Last Reviewed 08/03/18 @ 07:33 by Messi Hendricks MD) Arrhythmia (Chronic) COPD (chronic obstructive pulmonary disease) (Chronic) Coronary artery disease (Chronic) Peripheral arterial disease (Chronic) - Past Surgical History Surgical History: pacemaker implantation, - - fem artery bypass - Social History Smoking Status: Never smoker - Family History Maternal Family History: Family History (Last Reviewed 08/03/18 @ 07:34 by Messi Hendricks MD) Sister Breast cancer Hypertension History Items: No pertinent history Review of Systems Constitutional: Reports: Anorexia - dry mouth, Weakness, Fatigue. Denies: Chills, Fever Eyes: Denies: Double vision HEENT: Denies: Visual Changes Cardiovascular: Reports: Chest Pain - with exertion, - - CAD. Denies: Edema, Syncope Respiratory: Denies: Cough, Shortness of Breath Gastrointestinal: Reports: Abdominal Pain, Hematemesis, Hematochezia. Denies: Constipation, Diarrhea, Nausea, Vomiting Genitourinary: Denies: Dysuria Musculoskeletal: Reports: Joint swelling - fingers right hand, left knee, right foot gout, - - DJD, - - claudication Skin: Denies: Rash Neurological: Reports: Balance problems Hematologic/ Lymphatic: Denies: Anemia, Hx of blood clot Patient Problems: Active and Suspected Problems (Last Reviewed 08/03/18 @ 07:33 by Messi adorno MD) Acute blood loss anemia (Acute) Foot pain, right (Acute) - Physical Exam General: Alert, Oriented x3, Cooperative, No apparent distress, - - thin HEENT: PERRLA, EOMI Oral: Dry Mucosa Neck: Supple, No JVD Lungs: Clear to auscultation Cardiovascular: Regular rate, Murmur, No rub noted Abdomen: Bowel Sounds Present, Soft, Non Tender, Non-Distended, No Hepato- splenomegaly Extremities: No edema, Diminished Peripheral Pulses Musculoskeletal: Cachexia, Muscle Wasting, - - tender, swollen right 3rd, 4th mid DIP, right foot pain to light tough, DJD changes Lymphatic: No Cervical, Supraclavicular, or Inguinal Adenopathy Neurological: Cranial nerves II-XII grossly intact Psych/Mental Status: Normal Affect, Appropriate, Alert and oriented to time, place, person, mood and affect Vital Signs Temp Pulse Resp BP Pulse Ox 98.3 F 60 16 147/53 H 99 08/11/18 09:40 08/11/18 09:53 08/11/18 09:40 08/11/18 09:40 08/11/18 09:40 Oxygen Flow Rate (L/min) 2 Oxygen Delivery Method Room Air Weight: 53.9 kg Body Mass Index (BMI) 21.9 Intake and Output for Last 24 Hours 08/09/18 08/10/18 08/11/18 23:59 23:59 23:59 Intake Total 1033 / 1033 650 / 650 Output Total 1500 / 1500 400 / 400 550 / 550 Balance -467 / -467 -400 / -400 100 / 100 Microbiology Past 72 Hours 08/08/18 18:00 Urine Culture - Final Urine Catheter - Catheter Culture exhibits no growth. 08/08/18 05:10 Blood Culture - Preliminary Blood Culture (Wb) - Right Forearm No growth in 48 hours. 08/08/18 05:08 Blood Culture - Preliminary Blood Culture (Wb) - Right Hand No growth in 48 hours. Laboratory Tests Past 24 Hrs 08/10/18 08/11/18 08/11/18 05:28 06:10 06:10 WBC 10.9 RBC 2.72 L Hgb 8.3 L Hct 27.2 L MCV 100.0 H MCH 30.5 MCHC 30.5 L RDW 15.9 H RDW Differential 55.1 H Plt Count 276 MPV 10.8 Immature Gran % (Auto) 0.200 Neut % (Auto) 79.3 H Lymph % (Auto) 9.5 L [place] % (Auto) 10.5 H Eos % (Auto) 0.3 Baso % (Auto) 0.2 Absolute Neuts (auto) 8.7 H Absolute Lymphs (auto) 1.04 Total Counted Not Reportable ESR 47 H Sodium 136 Potassium 4.2 Chloride 98 Carbon Dioxide 26.0 Anion Gap 12 BUN 41 H Creatinine 1.92 H Estim Creat Clear Calc 17.34 Est GFR (MDRD) Af Amer 32 L Est GFR (MDRD) Non-Af 27 L BUN/Creatinine Ratio 21.4 H Glucose 107 H Uric Acid Calcium 9.0 AST 15 Total Creatine Kinase 33 Digoxin 08/11/18 08/11/18 08/11/18 06:10 09:33 11:20 WBC RBC Hgb 8.6 L Hct 27.1 L MCV MCH MCHC RDW RDW Differential Plt Count MPV Immature Gran % (Auto) Neut % (Auto) Lymph % (Auto) [place] % (Auto) Eos % (Auto) Baso % (Auto) Absolute Neuts (auto) Absolute Lymphs (auto) Total Counted ESR Sodium Potassium Chloride Carbon Dioxide Anion Gap BUN Creatinine Estim Creat Clear Calc Est GFR (MDRD) Af Amer Est GFR (MDRD) Non-Af BUN/Creatinine Ratio Glucose Uric Acid 9.9 H Calcium AST Total Creatine Kinase Digoxin 2.43 H* Clinical Impression(s) from Imaging Studies Abdomen/Pelvis CT 08/03/18 02:45 IMPRESSION: 1. Diverticulosis coli. No diverticulitis or other colitis identified. 2. Cardiomegaly with permanent transvenous pacemaker in place. 3. Chronic findings include atrophic right kidney, small hiatal hernia, and atherosclerotic, ectatic aorta. Individualized dose optimization techniques were used for this CT. at 0451 Reported and signed by: Brant Hatfield MD Electronically Signed: Brant Hatfield, at 4:49 EST Tel , Service support , Chest X-Ray 08/08/18 05:00 IMPRESSION: Stable chest, no acute cardiopulmonary disease. Mild cardiomegaly. COPD. Electronically Signed: Michael Abebe MD at 7:25 EST , Service support , Hand X-Ray 08/08/18 11:57 IMPRESSION: Multifocal osteoarthritis as described. A small erosion is noted involving the ulnar base of the fifth proximal phalanx. Electronically Signed: Ha Collazo MD at 14:21 EST Tel , Service support , Assessment/Plan All Active Problems (Last Reviewed 08/03/18 @ 07:33 by Messi Hendricks MD) Acute blood loss anemia (Acute) Foot pain, right (Acute) Respiratory abnormality (Acute) CAP (community acquired pneumonia) (Acute) Severe sepsis (Acute) Peripheral vascular disease (Acute) 1. SUNI suspect prerenal event from poor oral intake while on diuretics, ARB. Agree with discontinuation of Losartan, lasix, spironolactone. Suggest gentle hydration. Creatinine baseline 1.0 increased to 1.9 with atrophic right kidney incidental finding on CT abdomen 08/03 2. HTN stable 3. Claudication with PAD s/p bypass 4. CAD s/p CABG, PCI, CHF hx with LVEF 35%, PPM 5. GI bleed due to excessive excedrin use, NSAIDs, ASA, plavix. hgb stable 6. Primary vs tertiary hyperparathyroid with abnormal scan, hypercalcemia. Check PTH, corrected calcium. 7. Goiter s/p thyroidectomy 8. Hyperuricemia with gout in hand, foot on prednisone. Uric acid 9.9. Consider allopurinol after acute event resolved. Consider colchicine 0.6mg daily.
--- NOTE | 2018-08-11 14:13 | CASEMGMT ---
Social Work Note PAOLO met with pt, pt's and pt's daughter. Pt and pt's family agreeable to TCU at discharge. PAOLO explained that this worker will have to check on bed availability and to see if TCU is able to accept. Pt and pt's family state understanding. PAOLO spoke with Yuly in TCU. PAOLO informed Yuly that physician is not sure when pt will be medically ready. Yuly states that the earliest she could take pt is Wednesday. PAOLO informed pt that that day should be appropriate for pt. Plan: TCU Wednesday if medically cleared Zully Nguyen [employer], [employer]
[2018-08-11 15:00] VITALS: BP 105/42; PULSE 60; RESP 18; TEMP 37.6; O2SAT 94
[2018-08-11 15:08] LABS: Hematocrit 25.4 % (37-47)
[2018-08-11] MEDS: 0.9% Normal Saline 1,000 ML 60 ML IV (16:45)
[2018-08-11 17:55] LABS: Urine Sodium 26 mmol/L (Not Establ.)
[2018-08-11 21:00] VITALS: BP 123/58; PULSE 60; RESP 24; TEMP 37; O2SAT 94
[2018-08-11 21:22] LABS: Hematocrit 24.1 % (37-47); Hemoglobin 7.6 g/dl (12.0-15.0)
[2018-08-11] MEDS: LORazepam 0.5 MG Tablet PO (22:56)
[2018-08-11 23:00] VITALS: RESP 24
--- NOTE | 2018-08-11 23:30 | NURSING ---
dr. saucedo call and notified of the pt hgb of 7.6 asked to see if the heparin should still be given. dr stated to given it tonight. also notified of the pt waking up all diaphoretic and having cloudy urine, ordered a ua.
[2018-08-11] MEDS: Heparin Injection (Vial) 5,000 UNIT/ML VIAL 5000 UNIT SC (23:44)
[2018-08-12 03:00] VITALS: BP 116/61; PULSE 59; RESP 16; TEMP 36.6; O2SAT 97
[2018-08-12] MEDS: Magnesium Hydroxide 30 ML UDC PO (04:43)
[2018-08-12] MEDS: HYDROcodone Bitartrate/Apap 5/325 Tablet PO ×3 (04:45→22:16)
[2018-08-12 05:00] VITALS: PULSE 60; RESP 20
--- NOTE | 2018-08-12 05:57 | PN.SURG_ITS ---
Patient Problems: Active and Suspected Problems (Last Reviewed 08/03/18 @ 07:33 by Messi Hendricks MD) Acute blood loss anemia (Acute) Foot pain, right (Acute) Subjective: Pt very hesitant about right calf and foot as well as her right knee Pt worried about not having a stool Pt worried about possible physical therapy which she doesnt believe in - Physical Exam Extremities: - - Right foot still warm and red and tender Right calf tender Vital Signs Temp Pulse Resp BP Pulse Ox 97.9 F 59 L 16 116/61 97 08/12/18 03:00 08/12/18 03:00 08/12/18 03:00 08/12/18 03:00 08/12/18 03:00 Oxygen Flow Rate (L/min) 2 Oxygen Delivery Method Room Air Weight: 118 lb 13.266 oz Body Mass Index (BMI) 21.9 Intake and Output for Last 24 Hours 08/10/18 08/11/18 08/12/18 23:59 23:59 23:59 Intake Total 650 / 650 267 / 267 Output Total 400 / 400 550 / 550 800 / 800 Balance -400 / -400 100 / 100 -533 / -533 Microbiology Past 72 Hours 08/08/18 18:00 Urine Culture - Final Urine Catheter - Catheter Culture exhibits no growth. 08/08/18 05:10 Blood Culture - Preliminary Blood Culture (Wb) - Right Forearm No growth in 48 hours. 08/08/18 05:08 Blood Culture - Preliminary Blood Culture (Wb) - Right Hand No growth in 48 hours. Laboratory Tests Past 24 Hrs 08/11/18 08/11/18 08/11/18 06:10 06:10 06:10 WBC 10.9 RBC 2.72 L Hgb 8.3 L Hct 27.2 L MCV 100.0 H MCH 30.5 MCHC 30.5 L RDW 15.9 H RDW Differential 55.1 H Plt Count 276 MPV 10.8 Immature Gran % (Auto) 0.200 Neut % (Auto) 79.3 H Lymph % (Auto) 9.5 L [place] % (Auto) 10.5 H Eos % (Auto) 0.3 Baso % (Auto) 0.2 Absolute Neuts (auto) 8.7 H Absolute Lymphs (auto) 1.04 Total Counted Not Reportable ESR 47 H Sodium 136 Potassium 4.2 Chloride 98 Carbon Dioxide 26.0 Anion Gap 12 BUN 41 H Creatinine 1.92 H Estim Creat Clear Calc 17.34 Est GFR (MDRD) Af Amer 32 L Est GFR (MDRD) Non-Af 27 L BUN/Creatinine Ratio 21.4 H Glucose 107 H Uric Acid 9.9 H Calcium 9.0 Ur Random Sodium Urine Creatinine Digoxin 08/11/18 08/11/18 08/11/18 09:33 11:20 14:35 WBC RBC Hgb 8.6 L 8.0 L Hct 27.1 L 25.4 L MCV MCH MCHC RDW RDW Differential Plt Count MPV Immature Gran % (Auto) Neut % (Auto) Lymph % (Auto) [place] % (Auto) Eos % (Auto) Baso % (Auto) Absolute Neuts (auto) Absolute Lymphs (auto) Total Counted ESR Sodium Potassium Chloride Carbon Dioxide Anion Gap BUN Creatinine Estim Creat Clear Calc Est GFR (MDRD) Af Amer Est GFR (MDRD) Non-Af BUN/Creatinine Ratio Glucose Uric Acid Calcium Ur Random Sodium Urine Creatinine Digoxin 2.43 H* 08/11/18 08/11/18 08/11/18 17:05 17:05 21:05 WBC RBC Hgb 7.6 L Hct 24.1 L MCV MCH MCHC RDW RDW Differential Plt Count MPV Immature Gran % (Auto) Neut % (Auto) Lymph % (Auto) [place] % (Auto) Eos % (Auto) Baso % (Auto) Absolute Neuts (auto) Absolute Lymphs (auto) Total Counted ESR Sodium Potassium Chloride Carbon Dioxide Anion Gap BUN Creatinine Estim Creat Clear Calc Est GFR (MDRD) Af Amer Est GFR (MDRD) Non-Af BUN/Creatinine Ratio Glucose Uric Acid Calcium Ur Random Sodium 26 Urine Creatinine 106.00 Digoxin Medical Necessity - Tobacco Use Smoking Status: Never smoker Assessment/Plan All Active Problems (Last Reviewed 08/03/18 @ 07:33 by Messi Hendricks MD) Acute blood loss anemia (Acute) Foot pain, right (Acute) Respiratory abnormality (Acute) CAP (community acquired pneumonia) (Acute) Severe sepsis (Acute) Peripheral vascular disease (Acute) Venous scan awaiting interpretation per Dr Sam but I have reviewed the study and no bilateral DVT Right foot remains essentially same as yesterday-still warm,red,tender. Dx of gout made likely both foot and hand No vascular intervention needed Will sign off R.Cebul
[2018-08-12] MEDS: Levothyroxine 100 MCG Tablet PO (06:04)
[2018-08-12] MEDS: Morphine 2 MG/ML Syringe IV (06:08)
[2018-08-12 06:28] LABS: Absolute Lymphocyte Count 0.67 X10^3/ul (0.83-4.51); Absolute Neutrophil Count 8.4 X10^3/uL (2.0-7.7); Basophil# 0.01 X10^3/uL; Basophil% 0.1 % (0-1); Hematocrit 25.1 % (37-47); Hemoglobin 7.7 g/dl (12.0-15.0); Lymphocyte # 0.67 X10^3/ul (4.0); Lymphocyte % 6.9 % (19-41); Mean Corp Hgb Conc 30.7 g/gl (32-36); Mean Corpuscular Hgb 30.9 pg (27.0-32.0); Mean Corpuscular Volume 100.8 fL (81-99); Mean Platelet Vol. 10.5 fl (6.2-12.0); Monocyte# 0.66 X10^3/uL; Monocyte% 6.8 % (0-10); Neutrophil % 86.1 % (47-70); Platelet Count 300 K/mm3 (150-450); RBC Distribution Width CV 15.5 % (11.6-14.6); RBC Distribution Width SD 52.3 fl (35.1-43.9); Red Blood Count 2.49 M/mm3 (4.2-5.4); White Blood Count 9.8 K/mm3 (4.4-11.0)
[2018-08-12 06:33] LABS: POSITIVE COUNT NO; POSITIVE DIFFERENTIAL NO; POSITIVE MORPHOLOGY NO
[2018-08-12 06:45] LABS: Albumin, Serum 2.2 g/dL (3.2-5.0); BUN 40 mg/dL (7-18); BUN/Creat Ratio 25.5 RATIO (10-20); Calcium,Total 8.6 mg/dL (8.5-10.1); Chloride 103 mmol/L (98-107); Creatinine, Serum 1.57 mg/dL (0.55-1.02); EST Glomerular Filtration Rate 34 mL/min (>60); Est Glom Filt Rate - Afr Amer 41 mL/min (>60); Estimated Creatinine Clearance 21.21 ml/min; Glucose 151 mg/dL (74-106); Phosphorus 2.7 mg/dL (2.5-4.9); Potassium 4.2 mmol/L (3.5-5.1); Sodium Level 140 mmol/L (136-145)
[2018-08-12 07:40] LABS: PTHIN 195.8 pg/mL (18.4-80.1)
[2018-08-12 08:41] VITALS: BP 129/56; PULSE 60; RESP 18; TEMP 36.4; O2SAT 97
--- NOTE | 2018-08-12 08:43 | NURSING ---
PT RESTING QUIETLY IN BED WITH EYES CLOSED, RESP EASY
[2018-08-12] MEDS: 0.9% Normal Saline 1,000 ML 60 ML IV (08:50)
[2018-08-12] MEDS: predniSONE 20 MG Tablet PO (09:57)
[2018-08-12] MEDS: Magnesium Oxide 400 MG Tablet PO (09:57)
[2018-08-12] MEDS: Gabapentin 100 MG Capsule PO ×2 (09:57→17:51)
[2018-08-12] MEDS: Pantoprazole Sodium 40 MG Tablet PO ×2 (09:57→22:12)
[2018-08-12] MEDS: Carvedilol 12.5 MG Tablet PO ×2 (09:57→22:13)
[2018-08-12] MEDS: Heparin Injection (Vial) 5,000 UNIT/ML VIAL 5000 UNIT SC ×2 (10:05→22:13)
[2018-08-12] MEDS: Psyllium 1 PACKET PO (10:05)
--- NOTE | 2018-08-12 10:25 | PN.RENAL_ITS ---
Patient Problems: Active and Suspected Problems (Last Reviewed 08/03/18 @ 07:33 by Messi Hendricks MD) Acute blood loss anemia (Acute) Foot pain, right (Acute) Subjective: still with weakness, leg pain. Renal fxn improving with iv fluids. - Physical Exam General: Alert, Oriented x3, Cooperative, No apparent distress Lungs: Clear to auscultation Cardiovascular: Regular rate Abdomen: Bowel Sounds Present Extremities: No edema, - - decreased redness of finger, foot Vital Signs Temp Pulse Resp BP Pulse Ox 97.6 F L 60 18 129/56 H 97 08/12/18 08:41 08/12/18 08:41 08/12/18 08:41 08/12/18 08:41 08/12/18 08:41 Oxygen Flow Rate (L/min) 2 Oxygen Delivery Method Room Air Weight: 53.9 kg Body Mass Index (BMI) 21.9 Intake and Output for Last 24 Hours 08/10/18 08/11/18 08/12/18 23:59 23:59 23:59 Intake Total 650 / 650 267 / 267 Output Total 400 / 400 550 / 550 800 / 800 Balance -400 / -400 100 / 100 -533 / -533 Microbiology Past 72 Hours 08/08/18 18:00 Urine Culture - Final Urine Catheter - Catheter Culture exhibits no growth. 08/08/18 05:10 Blood Culture - Preliminary Blood Culture (Wb) - Right Forearm No growth in 48 hours. 08/08/18 05:08 Blood Culture - Preliminary Blood Culture (Wb) - Right Hand No growth in 48 hours. Laboratory Tests Past 24 Hrs 08/11/18 08/11/18 08/11/18 11:20 14:35 17:05 WBC RBC Hgb 8.0 L Hct 25.4 L MCV MCH MCHC RDW RDW Differential Plt Count MPV Immature Gran % (Auto) Neut % (Auto) Lymph % (Auto) [place] % (Auto) Eos % (Auto) Baso % (Auto) Absolute Neuts (auto) Absolute Lymphs (auto) Total Counted Sodium Potassium Chloride Carbon Dioxide BUN Creatinine Estim Creat Clear Calc Est GFR (MDRD) Af Amer Est GFR (MDRD) Non-Af BUN/Creatinine Ratio Glucose Calcium Phosphorus Albumin PTH Intact Ur Random Sodium Urine Creatinine 106.00 Digoxin 2.43 H* 08/11/18 08/11/18 08/12/18 17:05 21:05 05:54 WBC RBC Hgb 7.6 L Hct 24.1 L MCV MCH MCHC RDW RDW Differential Plt Count MPV Immature Gran % (Auto) Neut % (Auto) Lymph % (Auto) [place] % (Auto) Eos % (Auto) Baso % (Auto) Absolute Neuts (auto) Absolute Lymphs (auto) Total Counted Sodium 140 Potassium 4.2 Chloride 103 Carbon Dioxide 26.0 BUN 40 H Creatinine 1.57 H Estim Creat Clear Calc 21.21 Est GFR (MDRD) Af Amer 41 L Est GFR (MDRD) Non-Af 34 L BUN/Creatinine Ratio 25.5 H Glucose 151 H Calcium 8.6 Phosphorus 2.7 Albumin 2.2 L PTH Intact Ur Random Sodium 26 Urine Creatinine Digoxin 08/12/18 08/12/18 05:54 05:54 WBC 9.8 RBC 2.49 L Hgb 7.7 L Hct 25.1 L MCV 100.8 H MCH 30.9 MCHC 30.7 L RDW 15.5 H RDW Differential 52.3 H Plt Count 300 MPV 10.5 Immature Gran % (Auto) 0.100 Neut % (Auto) 86.1 H Lymph % (Auto) 6.9 L [place] % (Auto) 6.8 Eos % (Auto) 0.0 Baso % (Auto) 0.1 Absolute Neuts (auto) 8.4 H Absolute Lymphs (auto) 0.67 L Total Counted Not Reportable Sodium Potassium Chloride Carbon Dioxide BUN Creatinine Estim Creat Clear Calc Est GFR (MDRD) Af Amer Est GFR (MDRD) Non-Af BUN/Creatinine Ratio Glucose Calcium Phosphorus Albumin PTH Intact 195.8 H Ur Random Sodium Urine Creatinine Digoxin Medical Necessity - Tobacco Use Smoking Status: Never smoker Assessment/Plan All Active Problems (Last Reviewed 08/03/18 @ 07:33 by Messi Hendricks MD) Acute blood loss anemia (Acute) Foot pain, right (Acute) Respiratory abnormality (Acute) CAP (community acquired pneumonia) (Acute) Severe sepsis (Acute) Peripheral vascular disease (Acute) 1. SUNI due to prerenal event from poor oral intake while on diuretics, ARB. Continue to hold Losartan, lasix, spironolactone. Continue gentle hydration. Creatinine baseline 1.0 increased to 1.9 with atrophic right kidney. Creatinine 1.5 today. 2. HTN stable 3. Claudication with PAD s/p bypass 4. CAD s/p CABG, PCI, CHF hx with LVEF 35%, PPM 5. GI bleed due to excessive excedrin use, NSAIDs, ASA, plavix. hgb stable 6. Primary vs tertiary hyperparathyroid with abnormal scan, hypercalcemia. PTH elevated. F/U with Dr. Raymond at [facility] for parathyroidectomy. Increased risk of nephrocalcinosis, arterial calcification, calciphylaxis. 7. Goiter s/p thyroidectomy 8. Hyperuricemia with gout in hand, foot on prednisone. Uric acid 9.9. Consider allopurinol after acute event resolved. Consider colchicine 0.6mg daily.
--- NOTE | 2018-08-12 12:29 | PN_ITS ---
Patient Problems: Active and Suspected Problems (Last Reviewed 08/03/18 @ 07:33 by Messi Hendricks MD) Acute blood loss anemia (Acute) Foot pain, right (Acute) Subjective: Patient is an 82-year-old female with a past medical history of coronary artery disease, chronic renal failure stage IV, CABG, PVD, acquired hypothyroidism, p acemaker implantation, cardiomyopathy(35%EF this admission), hypertension, COPD and hyperparathyroidism who was admitted to the hospital with an upper GI bleed secondary to a duodenal ulcer. She has had multiple complications in the hospital which included congestive heart failure, acute on chronic renal failure, acute gouty arthritis. All events of the past 24 hours of been reviewed. She has been afebrile since yesterday afternoon. Lab: White blood cell count is normal today at 9.8. She has a left shift but is on prednisone. Hemoglobin is stable at 7.7. Platelets are within normal limi ts. BUN is 40 today with a creatinine of 1.57, down from 1.9 yesterday. PTH is 195.8. Phosphorus is normal at 2.7. Micro: Blood cultures and urine culture had no growth. She is still having severe pain in the right foot and is unable to walk. Denies SOB, no nausea,no BM for several days. - Physical Exam General: Alert, Oriented x3, Cooperative, No apparent distress, - - she looks better today......more conversant and less fatigued with a less painful expression on her face. Oral: Moist Mucosa Neck: No JVD Lungs: Rales - few coarse rales in the bases that mostly resolved after a few deep breaths, - - No conversational dyspnea, no accessory muscle use, not tachypneic, symmetric chest expansion Cardiovascular: Regular rate, Regular Rhythm, Normal S1, Normal S2, No rub noted, No Gallop Abdomen: Bowel Sounds Present, Soft, Non Tender, Non-Distended Extremities: Edema - of the feet BL.....she is third spacing fluid and the alb is low. There is less redness of the R ankle and first MTP today but it is still very painful to even light touch Skin: No rashes Neurological: Cranial nerves II-XII grossly intact, Neuro grossly intact Psych/Mental Status: Normal Affect, Appropriate Vital Signs Temp Pulse Resp BP Pulse Ox 97.6 F L 60 18 129/56 H 97 12/21/18 08:41 08/12/18 08:41 08/12/18 08:41 08/12/18 08:41 08/12/18 08:41 Oxygen Flow Rate (L/min) 2 Oxygen Delivery Method Room Air Weight: 118 lb 13.266 oz Body Mass Index (BMI) 21.9 Intake and Output for Last 24 Hours 08/10/18 08/11/18 08/12/18 23:59 23:59 23:59 Intake Total 650 / 650 267 / 267 Output Total 400 / 400 550 / 550 800 / 800 Balance -400 / -400 100 / 100 -533 / -533 Microbiology Past 72 Hours 08/08/18 18:00 Urine Culture - Final Urine Catheter - Catheter Culture exhibits no growth. 08/08/18 05:10 Blood Culture - Preliminary Blood Culture (Wb) - Right Forearm No growth in 48 hours. 08/08/18 05:08 Blood Culture - Preliminary Blood Culture (Wb) - Right Hand No growth in 48 hours. Laboratory Tests Past 24 Hrs 08/11/18 08/11/18 08/11/18 11:20 14:35 17:05 WBC RBC Hgb 8.0 L Hct 25.4 L MCV MCH MCHC RDW RDW Differential Plt Count MPV Immature Gran % (Auto) Neut % (Auto) Lymph % (Auto) [place] % (Auto) Eos % (Auto) Baso % (Auto) Absolute Neuts (auto) Absolute Lymphs (auto) Total Counted Sodium Potassium Chloride Carbon Dioxide BUN Creatinine Estim Creat Clear Calc Est GFR (MDRD) Af Amer Est GFR (MDRD) Non-Af BUN/Creatinine Ratio Glucose Calcium Phosphorus Albumin PTH Intact Ur Random Sodium Urine Creatinine 106.00 Digoxin 2.43 H* 08/11/18 08/11/18 08/12/18 17:05 21:05 05:54 WBC RBC Hgb 7.6 L Hct 24.1 L MCV MCH MCHC RDW RDW Differential Plt Count MPV Immature Gran % (Auto) Neut % (Auto) Lymph % (Auto) [place] % (Auto) Eos % (Auto) Baso % (Auto) Absolute Neuts (auto) Absolute Lymphs (auto) Total Counted Sodium 140 Potassium 4.2 Chloride 103 Carbon Dioxide 26.0 BUN 40 H Creatinine 1.57 H Estim Creat Clear Calc 21.21 Est GFR (MDRD) Af Amer 41 L Est GFR (MDRD) Non-Af 34 L BUN/Creatinine Ratio 25.5 H Glucose 151 H Calcium 8.6 Phosphorus 2.7 Albumin 2.2 L PTH Intact Ur Random Sodium 26 Urine Creatinine Digoxin 08/12/18 08/12/18 05:54 05:54 WBC 9.8 RBC 2.49 L Hgb 7.7 L Hct 25.1 L MCV 100.8 H MCH 30.9 MCHC 30.7 L RDW 15.5 H RDW Differential 52.3 H Plt Count 300 MPV 10.5 Immature Gran % (Auto) 0.100 Neut % (Auto) 86.1 H Lymph % (Auto) 6.9 L [place] % (Auto) 6.8 Eos % (Auto) 0.0 Baso % (Auto) 0.1 Absolute Neuts (auto) 8.4 H Absolute Lymphs (auto) 0.67 L Total Counted Not Reportable Sodium Potassium Chloride Carbon Dioxide BUN Creatinine Estim Creat Clear Calc Est GFR (MDRD) Af Amer Est GFR (MDRD) Non-Af BUN/Creatinine Ratio Glucose Calcium Phosphorus Albumin PTH Intact 195.8 H Ur Random Sodium Urine Creatinine Digoxin Medical Necessity - Tobacco Use Smoking Status: Never smoker Assessment/Plan All Active Problems (Last Reviewed 08/03/18 @ 07:33 by Messi Hendricks MD) Hyperparathyroidism , secondary, non-renal (Acute) Hyperparathyroidism , secondary, non-renal (Acute) Hyperparathyroidism (Acute) Acute blood loss anemia (Acute) Foot pain, right (Acute) Respiratory abnormality (Acute) CAP (community acquired pneumonia) (Acute) Severe sepsis (Acute) Peripheral vascular disease (Acute) Impressions 1. UGI bleed due to PUD with duodenal Ulcer - suspect related to her chronic use of Excedrin......despite stage 4 CRF 2. anemia due to acute bleeding + anemia of chronic renal failure- transfused with 3 units PRBC's and the HGB is stable 3. LV dysfunction with a 35% -40% EF 4. BARTH's - takes 2-3 Excedrin every day.....tells me that Tylenol does not work for her 5. CAD 6. PVD - severe. JULIET on the right is 0.35 DP and 0.47 PT. and the waveform is monophasic. The left JULIET for the dorsalis pedis and posterior tibial arteries are 0.4 and 0.45 respectively. Had been on ASA and Plavix however, both the ASA and Plavix were discontinued at admission because of acute UGI bleed secondary to duodenal ulcer 7. HTN 8. COPD 9. increased kyphosis 10. Hypothyroidism - had thyroidectomy for goiter 11. 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 hx of breast CA - S/P L mastectomy 13. Stage 4 CRF with ARF 14. calf pain - can not anticoagulate due to the UGI bleed. Venous US of the LE's is negative for DVT. She has severe PVD of both LE's with JULIET's less than 0.5 BL 15. decompensated systolic CHF due to volume OL - resolved 16. cellulitis of the R hand - blood cultures negative. Continues to have low grade fever but the finger is no longer warm to touch and the erythemqa is much improved. The pain is better in the finger BUT worse in the R ankle/foot and knee 17. Hyperuricemia 18. Acute gouty arthritis Continue the Prednisone 20 mg daily for a total of 3-4 doses. Recheck a HH and a BMP in the AM. If the creat continues to improve will DC the fluids and transfer to TCU When she has less pain in the legs will try compression wraps to try and better control the edema Code Visit Inpatient E&M: 63503 Subs Hosp L2
--- NOTE | 2018-08-12 13:20 | CASEMGMT ---
Addendum entered by Zully Nguyen 08/12/18 13:36: Green sheet on chart. Original Note: Social Work Note SW met with pt and pt's daughter present in room. SW updated pt and pt's daughter that TCU has a bed for pt and is able to accept pt once medically cleared. Pt and pt's daughter state understanding. SW updated physician of acceptance to TCU. Plan: TCU tomorrow Zully Nguyen DIRECTOR SOFTWARE DEVELOPMENT, [employer]
[2018-08-12 15:30] VITALS: BP 125/55; PULSE 59; RESP 18; TEMP 36.9; O2SAT 98
[2018-08-12 20:56] VITALS: BP 127/57; PULSE 84; RESP 16; TEMP 37.1; O2SAT 95
[2018-08-12] MEDS: LORazepam 0.5 MG Tablet PO (22:16)
[2018-08-13] MEDS: 0.9% Normal Saline 1,000 ML 60 ML IV (00:10)
[2018-08-13 03:17] VITALS: BP 112/68; PULSE 59; RESP 16; TEMP 36.7; O2SAT 98
[2018-08-13] MEDS: Levothyroxine 100 MCG Tablet PO (05:19)
[2018-08-13] MEDS: HYDROcodone Bitartrate/Apap 5/325 Tablet PO ×2 (05:19→13:42)
[2018-08-13 08:06] LABS: Hematocrit 26.1 % (37-47); Hemoglobin 8.2 g/dl (12.0-15.0)
[2018-08-13 08:46] LABS: Anion Gap 7 (5-15); BUN 37 mg/dL (7-18); BUN/Creat Ratio 30.3 RATIO (10-20); Calcium,Total 9.2 mg/dL (8.5-10.1); Chloride 108 mmol/L (98-107); Creatinine, Serum 1.22 mg/dL (0.55-1.02); EST Glomerular Filtration Rate 45 mL/min (>60); Est Glom Filt Rate - Afr Amer 54 mL/min (>60); Estimated Creatinine Clearance 27.29 ml/min; Glucose 95 mg/dL (74-106); Potassium 4.8 mmol/L (3.5-5.1); Sodium Level 140 mmol/L (136-145)
[2018-08-13 09:02] VITALS: BP 137/73; PULSE 61; RESP 20; TEMP 36.7; O2SAT 96
[2018-08-13] MEDS: Gabapentin 100 MG Capsule PO (09:03)
[2018-08-13] MEDS: Carvedilol 12.5 MG Tablet PO (09:04)
[2018-08-13] MEDS: predniSONE 20 MG Tablet PO (09:04)
[2018-08-13] MEDS: Magnesium Oxide 400 MG Tablet PO (09:04)
[2018-08-13] MEDS: Pantoprazole Sodium 40 MG Tablet PO (09:04)
[2018-08-13] MEDS: Psyllium 1 PACKET PO (09:04)
--- NOTE | 2018-08-13 09:15 | TREXTCAR_ITS ---
- Diet 08/12/18 09:46 Diet: Renal: 60 gm protein Dietary Modifications:: Low Purine Diet Is pt able to select menu?: Yes Diet Comments: advance as tolerated - Routine Orders/Code Status Enema Type: Fleetz Enema Frequency: Daily PRN Suppository Type: Dulcolax 10mg Suppository Frequency: Daily PRN O2 Liters per Minute: 1-2 O2 Frequency: PRN Keep PO Greater than or Equal to (%): 90 Routine Lab Work: - - dig level, HH, BMP, phos on 08/15/18 - Therapies Weight Bearing: Full weight bearing Physical Therapy: Eval and Treat Occupational Therapy: Eval and Treat - Problem/Diagnosis (1) Acute blood loss anemia Status: Acute Current Visit: Yes (2) CAP (community acquired pneumonia) Status: Resolved Current Visit: No (3) Hyperparathyroidism Status: Acute Comment: she has a parathyroid mass and she also has CRF stage 4 Current Visit: No (4) Peripheral vascular disease Status: Chronic Comment: severe Current Visit: No (5) Severe sepsis Status: Resolved Current Visit: No (6) Arrhythmia Status: Chronic Current Visit: No (7) COPD (chronic obstructive pulmonary disease) Status: Chronic Current Visit: No (8) Coronary artery disease Status: Chronic Current Visit: No (9) Hypothyroidism Status: Chronic Current Visit: Yes (10) Cardiomyopathy Status: Chronic Comment: 35% Current Visit: Yes (11) Acute upper GI bleed Status: Acute Comment: PUD with duodenal ulcer Current Visit: Yes (12) Hypertension Status: Chronic Current Visit: Yes (13) Parathyroid adenoma Status: Chronic Current Visit: Yes (14) History of breast cancer Status: Chronic Current Visit: Yes (15) History of left mastectomy Status: Chronic Current Visit: Yes (16) Chronic renal failure, stage 4 (severe) Status: Chronic Current Visit: Yes (17) Acute gouty arthritis Status: Acute Current Visit: Yes (18) Hyperuricemia Status: Chronic Current Visit: Yes (19) Acute systolic (congestive) heart failure Status: Acute Current Visit: Yes (20) Cellulitis Status: Ruled-out Current Visit: Yes (21) Osteoporosis Status: Chronic Current Visit: Yes - Allergies/Procedures Done in Hospital Allergies/Adverse Reactions: Allergies alendronate sodium [From Fosamax] Allergy (Verified 08/03/18 02:29) Other nitrofurantoin [From Macrodantin] Allergy (Verified 08/03/18 02:29) Rash oxycodone [From Percocet] Allergy (Verified 08/03/18 02:29) Other quinapril [From Accupril] Allergy (Verified 08/03/18 02:29) Rash atorvastatin [From Lipitor] Adverse Reaction (Verified 08/03/18 02:29) Pain in joints diclofenac [From Arthrotec 50] Adverse Reaction (Verified 08/03/18 02:29) Upset Stomach misoprostol [From Arthrotec 50] Adverse Reaction (Verified 08/03/18 02:29) Upset Stomach Procedures: 2-D Echocardiogram, EGD - Type of Care/Length of Stay Estimated LOS: Convalescent Care Less Than 30 days Type of Care Needed: Skilled Rehab Potential: Good Prognosis: Good - Additional Orders/Day of Discharge Additional Orders: OK to restart the Plavix Wednesday IF H/H still stable. May be able to restart losartan if the potassium remains within normal limits and the creatinine is stable. Would not restart Lasix unless she develops rails and shortness of breath or her weight is increasing. Avoid intravenous Lasix if possible as she developed hyperuricemia and acute gouty arthritis. Consider sta rting allopurinol 100 mg daily when the acute gouty arthritis resolves. No aspirin, nonsteroidal anti-inflammatory drugs. Do not elevate the lower extremities-she has severe peripheral vascular disease. Antibiotics were stopped because the etiology of the swelling and erythema of the right second finger was most likely gouty arthritis and not cellulitis. H&P will serve as current which was dated: 08/03/18 Day of Discharge: 08/13/18 - Dietary and Speech Recommendations Dietitian Recommendations/Changes: Please reweigh patient. Rec liberalize diet to Cardiac / low purine as medically able. - Follow Up Care Primary Care Physician: Sudhir Fuller III, MD [Primary Care Provider] - Please follow up with your Primary Care Physician in: following DC from TCU Please Follow Up With: Tristen Shaikh MD When: after DC from TCU Please Follow Up With: Michelle Hull DO When: Following DC from TCU Please Follow Up With: Maury Fuller MD When: as instructed by Dr. Fuller
--- NOTE | 2018-08-13 09:46 | DS.PCM_ITS ---
Discharge Date and Diagnosis - Problem List Patient Problems: Active and Suspected Problems (Last Reviewed 08/03/18 @ 07:33 by Messi Hendricks MD) Acute upper GI bleed (Acute) PUD with duodenal ulcer Acute gouty arthritis (Acute) Acute systolic (congestive) heart failure (Acute) Acute blood loss anemia (Acute) Date of Admission: 08/03/18 Date of Discharge: 08/13/18 - Primary Discharge Diagnosis Active and Suspected Problems (Last Reviewed 08/03/18 @ 07:33 by Messi Hendricks MD) Acute upper GI bleed (Acute) PUD with duodenal ulcer Acute gouty arthritis (Acute) Acute systolic (congestive) heart failure (Acute) Acute blood loss anemia (Acute) Acute kidney injury on CRF stage 4 - Secondary Discharge Diagnosis Chronic Problems (Last Reviewed 08/03/18 @ 07:33 by Messi Hendricks MD) Hypothyroidism (Chronic) Cardiomyopathy (Chronic) 35%EF Hypertension (Chronic) Parathyroid adenoma (Chronic) History of breast cancer (Chronic) History of left mastectomy (Chronic) Chronic renal failure, stage 4 (severe) (Chronic) Hyperuricemia (Chronic) Osteoporosis (Chronic) Arrhythmia (Chronic) COPD (chronic obstructive pulmonary disease) (Chronic) Coronary artery disease (Chronic) Peripheral vascular disease (Chronic) severe Hospital Course and Treatment Imaging Results: Clinical Impression(s) from Imaging Studies Abdomen/Pelvis CT 08/03/18 02:45 IMPRESSION: 1. Diverticulosis coli. No diverticulitis or other colitis identified. 2. Cardiomegaly with permanent transvenous pacemaker in place. 3. Chronic findings include atrophic right kidney, small hiatal hernia, and atherosclerotic, ectatic aorta. Individualized dose optimization techniques were used for this CT. at 0451 Reported and signed by: Brant Hatfield MD Electronically Signed: Brant Hatfield, at 4:49 EST Tel , Service support , Chest X-Ray 08/08/18 05:00 IMPRESSION: Stable chest, no acute cardiopulmonary disease. Mild cardiomegaly. COPD. Electronically Signed: Michael Abebe MD at 7:25 EST , Service support , Hand X-Ray 08/08/18 11:57 IMPRESSION: Multifocal osteoarthritis as described. A small erosion is noted involving the ulnar base of the fifth proximal phalanx. Electronically Signed: Ha Collazo MD at 14:21 EST Tel , Service support , Laboratory Tests 08/13/18 08/13/18 08/12/18 Range/Units 06:46 06:46 05:54 WBC 9.8 (4.4-11.0) K/mm3 RBC 2.49 L (4.2-5.4) M/mm3 Hgb 8.2 L 7.7 L (12.0-15.0) g/dl Hct 26.1 L 25.1 L (37-47) % MCV 100.8 H (81-99) fL MCH 30.9 (27.0-32.0) pg MCHC 30.7 L (32-36) g/gl RDW 15.5 H (11.6-14.6) % RDW Differential 52.3 H (35.1-43.9) fl Plt Count 300 (150-450) K/mm3 MPV 10.5 (6.2-12.0) fl Immature Gran % (Auto) 0.100 (0.0-0.9) % Neut % (Auto) 86.1 H (47-70) % Lymph % (Auto) 6.9 L (19-41) % Fisher % (Auto) 6.8 (0-10) % Eos % (Auto) 0.0 (0-5) % Baso % (Auto) 0.1 (0-1) % Absolute Neuts (auto) 8.4 H (2.0-7.7) X10^3/uL Absolute Lymphs (auto) 0.67 L (0.83-4.51) X10^3/ul Total Counted Not Reportable ESR (0-30) mm/hr PT (11.7-14.9) SECONDS INR APTT (24.1-36.2) Seconds Sodium 140 (136-145) mmol/L Potassium 4.8 (3.5-5.1) mmol/L Chloride 108 H (98-107) mmol/L Carbon Dioxide 25.0 (21.0-32.0) mmol/L Anion Gap 7 (5-15) BUN 37 H (7-18) mg/dL Creatinine 1.22 H (0.55-1.02) mg/dL Estim Creat Clear Calc 27.29 ml/min Est GFR (MDRD) Af Amer 54 L (>60) mL/min Est GFR (MDRD) Non-Af 45 L (>60) mL/min BUN/Creatinine Ratio 30.3 H (10-20) RATIO Glucose 95 (74-106) mg/dL Uric Acid (2.6-6.0) mg/dL Calcium 9.2 (8.5-10.1) mg/dL Phosphorus (2.5-4.9) mg/dL Magnesium (1.6-2.6) mg/dL AST (15-37) U/L Total Creatine Kinase (26-192) U/L Troponin I (<0.045) ng/mL Albumin (3.2-5.0) g/dL PTH Intact (18.4-80.1) pg/mL Urine Color (Yellow) Urine Clarity (Clear) Urine pH (5.0 - 8.0) Ur Specific [place] (1.002-1.030) Urine Protein (Negative) mg/dl Urine Glucose (UA) (Normal) mg/dl Urine Ketones (Negative) mg/dl Urine Occult Blood (Negative) /ul Urine Nitrite (Negative) Urine Bilirubin (Negative) mg/dL Urine Urobilinogen (Normal) mg/dl Ur Leukocyte Esterase (Negative) /ul Urine RBC (0-5) /hpf Urine WBC (0-5) /hpf Ur Squamous Epith Cells (5-10) /hpf Urine Bacteria (None Seen) /hpf Urine Mucus (<or=2+) /hpf Ur Random Sodium (Not Establ.) mmol/L Urine Creatinine (NO RANGE EST.) mg/dL Digoxin (0.80-2.00) ng/mL Blood Type Antibody Screen Crossmatch 08/12/18 08/12/18 08/11/18 Range/Units 05:54 05:54 21:05 WBC (4.4-11.0) K/mm3 RBC (4.2-5.4) M/mm3 Hgb 7.6 L (12.0-15.0) g/dl Hct 24.1 L (37-47) % MCV (81-99) fL MCH (27.0-32.0) pg MCHC (32-36) g/gl RDW (11.6-14.6) % RDW Differential (35.1-43.9) fl Plt Count (150-450) K/mm3 MPV (6.2-12.0) fl Immature Gran % (Auto) (0.0-0.9) % Neut % (Auto) (47-70) % Lymph % (Auto) (19-41) % Fisher % (Auto) (0-10) % Eos % (Auto) (0-5) % Baso % (Auto) (0-1) % Absolute Neuts (auto) (2.0-7.7) X10^3/uL Absolute Lymphs (auto) (0.83-4.51) X10^3/ul Total Counted ESR (0-30) mm/hr PT (11.7-14.9) SECONDS INR APTT (24.1-36.2) Seconds Sodium 140 (136-145) mmol/L Potassium 4.2 (3.5-5.1) mmol/L Chloride 103 (98-107) mmol/L Carbon Dioxide 26.0 (21.0-32.0) mmol/L Anion Gap (5-15) BUN 40 H (7-18) mg/dL Creatinine 1.57 H (0.55-1.02) mg/dL Estim Creat Clear Calc 21.21 ml/min Est GFR (MDRD) Af Amer 41 L (>60) mL/min Est GFR (MDRD) Non-Af 34 L (>60) mL/min BUN/Creatinine Ratio 25.5 H (10-20) RATIO Glucose 151 H (74-106) mg/dL Uric Acid (2.6-6.0) mg/dL Calcium 8.6 (8.5-10.1) mg/dL Phosphorus 2.7 (2.5-4.9) mg/dL Magnesium (1.6-2.6) mg/dL AST (15-37) U/L Total Creatine Kinase (26-192) U/L Troponin I (<0.045) ng/mL Albumin 2.2 L (3.2-5.0) g/dL PTH Intact 195.8 H (18.4-80.1) pg/mL Urine Color (Yellow) Urine Clarity (Clear) Urine pH (5.0 - 8.0) Ur Specific [place] (1.002-1.030) Urine Protein (Negative) mg/dl Urine Glucose (UA) (Normal) mg/dl Urine Ketones (Negative) mg/dl Urine Occult Blood (Negative) /ul Urine Nitrite (Negative) Urine Bilirubin (Negative) mg/dL Urine Urobilinogen (Normal) mg/dl Ur Leukocyte Esterase (Negative) /ul Urine RBC (0-5) /hpf Urine WBC (0-5) /hpf Ur Squamous Epith Cells (5-10) /hpf Urine Bacteria (None Seen) /hpf Urine Mucus (<or=2+) /hpf Ur Random Sodium (Not Establ.) mmol/L Urine Creatinine (NO RANGE EST.) mg/dL Digoxin (0.80-2.00) ng/mL Blood Type Antibody Screen Crossmatch 08/11/18 08/11/18 08/11/18 Range/Units 17:05 17:05 14:35 WBC (4.4-11.0) K/mm3 RBC (4.2-5.4) M/mm3 Hgb 8.0 L (12.0-15.0) g/dl Hct 25.4 L (37-47) % MCV (81-99) fL MCH (27.0-32.0) pg MCHC (32-36) g/gl RDW (11.6-14.6) % RDW Differential (35.1-43.9) fl Plt Count (150-450) K/mm3 MPV (6.2-12.0) fl Immature Gran % (Auto) (0.0-0.9) % Neut % (Auto) (47-70) % Lymph % (Auto) (19-41) % Fisher % (Auto) (0-10) % Eos % (Auto) (0-5) % Baso % (Auto) (0-1) % Absolute Neuts (auto) (2.0-7.7) X10^3/uL Absolute Lymphs (auto) (0.83-4.51) X10^3/ul Total Counted ESR (0-30) mm/hr PT (11.7-14.9) SECONDS INR APTT (24.1-36.2) Seconds Sodium (136-145) mmol/L Potassium (3.5-5.1) mmol/L Chloride (98-107) mmol/L Carbon Dioxide (21.0-32.0) mmol/L Anion Gap (5-15) BUN (7-18) mg/dL Creatinine (0.55-1.02) mg/dL Estim Creat Clear Calc ml/min Est GFR (MDRD) Af Amer (>60) mL/min Est GFR (MDRD) Non-Af (>60) mL/min BUN/Creatinine Ratio (10-20) RATIO Glucose (74-106) mg/dL Uric Acid (2.6-6.0) mg/dL Calcium (8.5-10.1) mg/dL Phosphorus (2.5-4.9) mg/dL Magnesium (1.6-2.6) mg/dL AST (15-37) U/L Total Creatine Kinase (26-192) U/L Troponin I (<0.045) ng/mL Albumin (3.2-5.0) g/dL PTH Intact (18.4-80.1) pg/mL Urine Color (Yellow) Urine Clarity (Clear) Urine pH (5.0 - 8.0) Ur Specific [place] (1.002-1.030) Urine Protein (Negative) mg/dl Urine Glucose (UA) (Normal) mg/dl Urine Ketones (Negative) mg/dl Urine Occult Blood (Negative) /ul Urine Nitrite (Negative) Urine Bilirubin (Negative) mg/dL Urine Urobilinogen (Normal) mg/dl Ur Leukocyte Esterase (Negative) /ul Urine RBC (0-5) /hpf Urine WBC (0-5) /hpf Ur Squamous Epith Cells (5-10) /hpf Urine Bacteria (None Seen) /hpf Urine Mucus (<or=2+) /hpf Ur Random Sodium 26 (Not Establ.) mmol/L Urine Creatinine 106.00 (NO RANGE EST.) mg/dL Digoxin (0.80-2.00) ng/mL Blood Type Antibody Screen Crossmatch 08/11/18 08/11/18 08/11/18 Range/Units 11:20 09:33 06:10 WBC (4.4-11.0) K/mm3 RBC (4.2-5.4) M/mm3 Hgb 8.6 L (12.0-15.0) g/dl Hct 27.1 L (37-47) % MCV (81-99) fL MCH (27.0-32.0) pg MCHC (32-36) g/gl RDW (11.6-14.6) % RDW Differential (35.1-43.9) fl Plt Count (150-450) K/mm3 MPV (6.2-12.0) fl Immature Gran % (Auto) (0.0-0.9) % Neut % (Auto) (47-70) % Lymph % (Auto) (19-41) % Fisher % (Auto) (0-10) % Eos % (Auto) (0-5) % Baso % (Auto) (0-1) % Absolute Neuts (auto) (2.0-7.7) X10^3/uL Absolute Lymphs (auto) (0.83-4.51) X10^3/ul Total Counted ESR (0-30) mm/hr PT (11.7-14.9) SECONDS INR APTT (24.1-36.2) Seconds Sodium (136-145) mmol/L Potassium (3.5-5.1) mmol/L Chloride (98-107) mmol/L Carbon Dioxide (21.0-32.0) mmol/L Anion Gap (5-15) BUN (7-18) mg/dL Creatinine (0.55-1.02) mg/dL Estim Creat Clear Calc ml/min Est GFR (MDRD) Af Amer (>60) mL/min Est GFR (MDRD) Non-Af (>60) mL/min BUN/Creatinine Ratio (10-20) RATIO Glucose (74-106) mg/dL Uric Acid 9.9 H (2.6-6.0) mg/dL Calcium (8.5-10.1) mg/dL Phosphorus (2.5-4.9) mg/dL Magnesium (1.6-2.6) mg/dL AST (15-37) U/L Total Creatine Kinase (26-192) U/L Troponin I (<0.045) ng/mL Albumin (3.2-5.0) g/dL PTH Intact (18.4-80.1) pg/mL Urine Color (Yellow) Urine Clarity (Clear) Urine pH (5.0 - 8.0) Ur Specific [place] (1.002-1.030) Urine Protein (Negative) mg/dl Urine Glucose (UA) (Normal) mg/dl Urine Ketones (Negative) mg/dl Urine Occult Blood (Negative) /ul Urine Nitrite (Negative) Urine Bilirubin (Negative) mg/dL Urine Urobilinogen (Normal) mg/dl Ur Leukocyte Esterase (Negative) /ul Urine RBC (0-5) /hpf Urine WBC (0-5) /hpf Ur Squamous Epith Cells (5-10) /hpf Urine Bacteria (None Seen) /hpf Urine Mucus (<or=2+) /hpf Ur Random Sodium (Not Establ.) mmol/L Urine Creatinine (NO RANGE EST.) mg/dL Digoxin 2.43 H* (0.80-2.00) ng/mL Blood Type Antibody Screen Crossmatch 08/11/18 08/11/18 08/10/18 Range/Units 06:10 06:10 05:28 WBC 10.9 (4.4-11.0) K/mm3 RBC 2.72 L (4.2-5.4) M/mm3 Hgb 8.3 L (12.0-15.0) g/dl Hct 27.2 L (37-47) % MCV 100.0 H (81-99) fL MCH 30.5 (27.0-32.0) pg MCHC 30.5 L (32-36) g/gl RDW 15.9 H (11.6-14.6) % RDW Differential 55.1 H (35.1-43.9) fl Plt Count 276 (150-450) K/mm3 MPV 10.8 (6.2-12.0) fl Immature Gran % (Auto) 0.200 (0.0-0.9) % Neut % (Auto) 79.3 H (47-70) % Lymph % (Auto) 9.5 L (19-41) % Fisher % (Auto) 10.5 H (0-10) % Eos % (Auto) 0.3 (0-5) % Baso % (Auto) 0.2 (0-1) % Absolute Neuts (auto) 8.7 H (2.0-7.7) X10^3/uL Absolute Lymphs (auto) 1.04 (0.83-4.51) X10^3/ul Total Counted Not Reportable ESR 47 H (0-30) mm/hr PT (11.7-14.9) SECONDS INR APTT (24.1-36.2) Seconds Sodium 136 (136-145) mmol/L Potassium 4.2 (3.5-5.1) mmol/L Chloride 98 (98-107) mmol/L Carbon Dioxide 26.0 (21.0-32.0) mmol/L Anion Gap 12 (5-15) BUN 41 H (7-18) mg/dL Creatinine 1.92 H (0.55-1.02) mg/dL Estim Creat Clear Calc 17.34 ml/min Est GFR (MDRD) Af Amer 32 L (>60) mL/min Est GFR (MDRD) Non-Af 27 L (>60) mL/min BUN/Creatinine Ratio 21.4 H (10-20) RATIO Glucose 107 H (74-106) mg/dL Uric Acid (2.6-6.0) mg/dL Calcium 9.0 (8.5-10.1) mg/dL Phosphorus (2.5-4.9) mg/dL Magnesium (1.6-2.6) mg/dL AST 15 (15-37) U/L Total Creatine Kinase 33 (26-192) U/L Troponin I (<0.045) ng/mL Albumin (3.2-5.0) g/dL PTH Intact (18.4-80.1) pg/mL Urine Color (Yellow) Urine Clarity (Clear) Urine pH (5.0 - 8.0) Ur Specific [place] (1.002-1.030) Urine Protein (Negative) mg/dl Urine Glucose (UA) (Normal) mg/dl Urine Ketones (Negative) mg/dl Urine Occult Blood (Negative) /ul Urine Nitrite (Negative) Urine Bilirubin (Negative) mg/dL Urine Urobilinogen (Normal) mg/dl Ur Leukocyte Esterase (Negative) /ul Urine RBC (0-5) /hpf Urine WBC (0-5) /hpf Ur Squamous Epith Cells (5-10) /hpf Urine Bacteria (None Seen) /hpf Urine Mucus (<or=2+) /hpf Ur Random Sodium (Not Establ.) mmol/L Urine Creatinine (NO RANGE EST.) mg/dL Digoxin (0.80-2.00) ng/mL Blood Type Antibody Screen Crossmatch 08/10/18 08/10/18 08/09/18 Range/Units 05:28 05:28 05:30 WBC 12.2 H (4.4-11.0) K/mm3 RBC 2.91 L (4.2-5.4) M/mm3 Hgb 9.0 L (12.0-15.0) g/dl Hct 29.4 L (37-47) % MCV 101.0 H (81-99) fL MCH 30.9 (27.0-32.0) pg MCHC 30.6 L (32-36) g/gl RDW 16.7 H (11.6-14.6) % RDW Differential 59.7 H (35.1-43.9) fl Plt Count 246 (150-450) K/mm3 MPV 9.9 (6.2-12.0) fl Immature Gran % (Auto) 0.200 (0.0-0.9) % Neut % (Auto) 81.9 H (47-70) % Lymph % (Auto) 6.0 L (19-41) % Fisher % (Auto) 11.5 H (0-10) % Eos % (Auto) 0.2 (0-5) % Baso % (Auto) 0.2 (0-1) % Absolute Neuts (auto) 10.0 H (2.0-7.7) X10^3/uL Absolute Lymphs (auto) 0.73 L (0.83-4.51) X10^3/ul Total Counted Not Reportable ESR (0-30) mm/hr PT (11.7-14.9) SECONDS INR APTT (24.1-36.2) Seconds Sodium 134 L 139 (136-145) mmol/L Potassium 3.9 3.9 (3.5-5.1) mmol/L Chloride 95 L 100 (98-107) mmol/L Carbon Dioxide 30.0 30.0 (21.0-32.0) mmol/L Anion Gap 9 9 (5-15) BUN 27 H 19 H (7-18) mg/dL Creatinine 1.71 H 1.34 H (0.55-1.02) mg/dL Estim Creat Clear Calc 19.47 24.85 ml/min Est GFR (MDRD) Af Amer 37 L 49 L (>60) mL/min Est GFR (MDRD) Non-Af 30 L 40 L (>60) mL/min BUN/Creatinine Ratio 15.8 14.2 (10-20) RATIO Glucose 120 H 117 H (74-106) mg/dL Uric Acid (2.6-6.0) mg/dL Calcium 9.0 9.0 (8.5-10.1) mg/dL Phosphorus 3.3 (2.5-4.9) mg/dL Magnesium (1.6-2.6) mg/dL AST (15-37) U/L Total Creatine Kinase (26-192) U/L Troponin I (<0.045) ng/mL Albumin (3.2-5.0) g/dL PTH Intact (18.4-80.1) pg/mL Urine Color (Yellow) Urine Clarity (Clear) Urine pH (5.0 - 8.0) Ur Specific [place] (1.002-1.030) Urine Protein (Negative) mg/dl Urine Glucose (UA) (Normal) mg/dl Urine Ketones (Negative) mg/dl Urine Occult Blood (Negative) /ul Urine Nitrite (Negative) Urine Bilirubin (Negative) mg/dL Urine Urobilinogen (Normal) mg/dl Ur Leukocyte Esterase (Negative) /ul Urine RBC (0-5) /hpf Urine WBC (0-5) /hpf Ur Squamous Epith Cells (5-10) /hpf Urine Bacteria (None Seen) /hpf Urine Mucus (<or=2+) /hpf Ur Random Sodium (Not Establ.) mmol/L Urine Creatinine (NO RANGE EST.) mg/dL Digoxin (0.80-2.00) ng/mL Blood Type Antibody Screen Crossmatch 08/08/18 08/08/18 08/08/18 Range/Units 18:00 05:08 05:08 WBC 10.2 (4.4-11.0) K/mm3 RBC 3.00 L (4.2-5.4) M/mm3 Hgb 9.5 L (12.0-15.0) g/dl Hct 29.6 L (37-47) % MCV 98.7 (81-99) fL MCH 31.7 (27.0-32.0) pg MCHC 32.1 (32-36) g/gl RDW 16.7 H (11.6-14.6) % RDW Differential 53.2 H (35.1-43.9) fl Plt Count 240 (150-450) K/mm3 MPV 10.6 (6.2-12.0) fl Immature Gran % (Auto) (0.0-0.9) % Neut % (Auto) (47-70) % Lymph % (Auto) (19-41) % Fisher % (Auto) (0-10) % Eos % (Auto) (0-5) % Baso % (Auto) (0-1) % Absolute Neuts (auto) (2.0-7.7) X10^3/uL Absolute Lymphs (auto) (0.83-4.51) X10^3/ul Total Counted ESR (0-30) mm/hr PT (11.7-14.9) SECONDS INR APTT (24.1-36.2) Seconds Sodium 143 (136-145) mmol/L Potassium 3.7 (3.5-5.1) mmol/L Chloride 104 (98-107) mmol/L Carbon Dioxide 31.0 (21.0-32.0) mmol/L Anion Gap 8 (5-15) BUN 15 (7-18) mg/dL Creatinine 1.24 H (0.55-1.02) mg/dL Estim Creat Clear Calc 26.85 ml/min Est GFR (MDRD) Af Amer 53 L (>60) mL/min Est GFR (MDRD) Non-Af 44 L (>60) mL/min BUN/Creatinine Ratio 12.1 (10-20) RATIO Glucose 96 (74-106) mg/dL Uric Acid (2.6-6.0) mg/dL Calcium 8.6 (8.5-10.1) mg/dL Phosphorus 2.9 (2.5-4.9) mg/dL Magnesium (1.6-2.6) mg/dL AST (15-37) U/L Total Creatine Kinase (26-192) U/L Troponin I (<0.045) ng/mL Albumin (3.2-5.0) g/dL PTH Intact (18.4-80.1) pg/mL Urine Color Yellow (Yellow) Urine Clarity Clear (Clear) Urine pH 6.0 (5.0 - 8.0) Ur Specific [place] 1.015 (1.002-1.030) Urine Protein Negative (Negative) mg/dl Urine Glucose (UA) Normal (Normal) mg/dl Urine Ketones Negative (Negative) mg/dl Urine Occult Blood Negative (Negative) /ul Urine Nitrite Negative (Negative) Urine Bilirubin Negative (Negative) mg/dL Urine Urobilinogen Normal (Normal) mg/dl Ur Leukocyte Esterase Negative (Negative) /ul Urine RBC 0 SEEN (0-5) /hpf Urine WBC 0 SEEN (0-5) /hpf Ur Squamous Epith Cells 0 SEEN (5-10) /hpf Urine Bacteria 0 SEEN (None Seen) /hpf Urine Mucus 0 SEEN (<or=2+) /hpf Ur Random Sodium (Not Establ.) mmol/L Urine Creatinine (NO RANGE EST.) mg/dL Digoxin (0.80-2.00) ng/mL Blood Type Antibody Screen Crossmatch 08/07/18 08/07/18 08/07/18 Range/Units 13:05 05:45 05:45 WBC 8.1 (4.4-11.0) K/mm3 RBC 2.72 L (4.2-5.4) M/mm3 Hgb 8.5 L (12.0-15.0) g/dl Hct 27.3 L (37-47) % MCV 100.4 H (81-99) fL MCH 31.3 (27.0-32.0) pg MCHC 31.1 L (32-36) g/gl RDW 16.5 H (11.6-14.6) % RDW Differential 54.1 H (35.1-43.9) fl Plt Count 198 (150-450) K/mm3 MPV 10.7 (6.2-12.0) fl Immature Gran % (Auto) (0.0-0.9) % Neut % (Auto) (47-70) % Lymph % (Auto) (19-41) % Fisher % (Auto) (0-10) % Eos % (Auto) (0-5) % Baso % (Auto) (0-1) % Absolute Neuts (auto) (2.0-7.7) X10^3/uL Absolute Lymphs (auto) (0.83-4.51) X10^3/ul Total Counted ESR (0-30) mm/hr PT (11.7-14.9) SECONDS INR APTT (24.1-36.2) Seconds Sodium 144 (136-145) mmol/L Potassium 3.8 (3.5-5.1) mmol/L Chloride 111 H (98-107) mmol/L Carbon Dioxide 27.0 (21.0-32.0) mmol/L Anion Gap 6 (5-15) BUN 18 (7-18) mg/dL Creatinine 1.04 H (0.55-1.02) mg/dL Estim Creat Clear Calc 32.01 ml/min Est GFR (MDRD) Af Amer 65 (>60) mL/min Est GFR (MDRD) Non-Af 54 L (>60) mL/min BUN/Creatinine Ratio 17.3 (10-20) RATIO Glucose 88 (74-106) mg/dL Uric Acid (2.6-6.0) mg/dL Calcium 8.6 (8.5-10.1) mg/dL Phosphorus 1.9 L (2.5-4.9) mg/dL Magnesium 1.6 (1.6-2.6) mg/dL AST (15-37) U/L Total Creatine Kinase (26-192) U/L Troponin I (<0.045) ng/mL Albumin (3.2-5.0) g/dL PTH Intact (18.4-80.1) pg/mL Urine Color (Yellow) Urine Clarity (Clear) Urine pH (5.0 - 8.0) Ur Specific [place] (1.002-1.030) Urine Protein (Negative) mg/dl Urine Glucose (UA) (Normal) mg/dl Urine Ketones (Negative) mg/dl Urine Occult Blood (Negative) /ul Urine Nitrite (Negative) Urine Bilirubin (Negative) mg/dL Urine Urobilinogen (Normal) mg/dl Ur Leukocyte Esterase (Negative) /ul Urine RBC (0-5) /hpf Urine WBC (0-5) /hpf Ur Squamous Epith Cells (5-10) /hpf Urine Bacteria (None Seen) /hpf Urine Mucus (<or=2+) /hpf Ur Random Sodium (Not Establ.) mmol/L Urine Creatinine (NO RANGE EST.) mg/dL Digoxin 0.27 L (0.80-2.00) ng/mL Blood Type Antibody Screen Crossmatch 08/06/18 08/06/18 08/05/18 Range/Units 04:55 04:55 13:40 WBC 10.5 (4.4-11.0) K/mm3 RBC 3.17 L (4.2-5.4) M/mm3 Hgb 9.7 L 9.6 L (12.0-15.0) g/dl Hct 30.6 L 30.4 L (37-47) % MCV 96.5 (81-99) fL MCH 30.6 (27.0-32.0) pg MCHC 31.7 L (32-36) g/gl RDW 17.1 H (11.6-14.6) % RDW Differential 58.7 H (35.1-43.9) fl Plt Count 205 (150-450) K/mm3 MPV 9.9 (6.2-12.0) fl Immature Gran % (Auto) 0.300 (0.0-0.9) % Neut % (Auto) 65.8 (47-70) % Lymph % (Auto) 21.9 (19-41) % Fisher % (Auto) 7.4 (0-10) % Eos % (Auto) 4.3 (0-5) % Baso % (Auto) 0.3 (0-1) % Absolute Neuts (auto) 6.9 (2.0-7.7) X10^3/uL Absolute Lymphs (auto) 2.31 (0.83-4.51) X10^3/ul Total Counted Not Reportable ESR (0-30) mm/hr PT (11.7-14.9) SECONDS INR APTT (24.1-36.2) Seconds Sodium 146 H (136-145) mmol/L Potassium 4.1 (3.5-5.1) mmol/L Chloride 113 H (98-107) mmol/L Carbon Dioxide 27.0 (21.0-32.0) mmol/L Anion Gap 6 (5-15) BUN 26 H (7-18) mg/dL Creatinine 1.16 H (0.55-1.02) mg/dL Estim Creat Clear Calc 28.70 ml/min Est GFR (MDRD) Af Amer 58 L (>60) mL/min Est GFR (MDRD) Non-Af 48 L (>60) mL/min BUN/Creatinine Ratio 22.4 H (10-20) RATIO Glucose 89 (74-106) mg/dL Uric Acid (2.6-6.0) mg/dL Calcium 9.2 (8.5-10.1) mg/dL Phosphorus (2.5-4.9) mg/dL Magnesium (1.6-2.6) mg/dL AST (15-37) U/L Total Creatine Kinase (26-192) U/L Troponin I (<0.045) ng/mL Albumin (3.2-5.0) g/dL PTH Intact (18.4-80.1) pg/mL Urine Color (Yellow) Urine Clarity (Clear) Urine pH (5.0 - 8.0) Ur Specific [place] (1.002-1.030) Urine Protein (Negative) mg/dl Urine Glucose (UA) (Normal) mg/dl Urine Ketones (Negative) mg/dl Urine Occult Blood (Negative) /ul Urine Nitrite (Negative) Urine Bilirubin (Negative) mg/dL Urine Urobilinogen (Normal) mg/dl Ur Leukocyte Esterase (Negative) /ul Urine RBC (0-5) /hpf Urine WBC (0-5) /hpf Ur Squamous Epith Cells (5-10) /hpf Urine Bacteria (None Seen) /hpf Urine Mucus (<or=2+) /hpf Ur Random Sodium (Not Establ.) mmol/L Urine Creatinine (NO RANGE EST.) mg/dL Digoxin (0.80-2.00) ng/mL Blood Type Antibody Screen Crossmatch 08/05/18 08/05/18 08/04/18 Range/Units 04:40 04:40 23:55 WBC 9.6 (4.4-11.0) K/mm3 RBC 2.46 L (4.2-5.4) M/mm3 Hgb 7.6 L (12.0-15.0) g/dl Hct 24.0 L (37-47) % MCV 97.6 (81-99) fL MCH 30.9 (27.0-32.0) pg MCHC 31.7 L (32-36) g/gl RDW 17.1 H (11.6-14.6) % RDW Differential 60.4 H (35.1-43.9) fl Plt Count 173 (150-450) K/mm3 MPV 9.2 (6.2-12.0) fl Immature Gran % (Auto) 0.200 (0.0-0.9) % Neut % (Auto) 77.0 H (47-70) % Lymph % (Auto) 15.4 L (19-41) % Fisher % (Auto) 6.7 (0-10) % Eos % (Auto) 0.4 (0-5) % Baso % (Auto) 0.3 (0-1) % Absolute Neuts (auto) 7.4 (2.0-7.7) X10^3/uL Absolute Lymphs (auto) 1.47 (0.83-4.51) X10^3/ul Total Counted Not Reportable ESR (0-30) mm/hr PT (11.7-14.9) SECONDS INR APTT (24.1-36.2) Seconds Sodium 148 H (136-145) mmol/L Potassium 4.6 (3.5-5.1) mmol/L Chloride 116 H (98-107) mmol/L Carbon Dioxide 26.0 (21.0-32.0) mmol/L Anion Gap 6 (5-15) BUN 39 H (7-18) mg/dL Creatinine 1.12 H (0.55-1.02) mg/dL Estim Creat Clear Calc 31.16 ml/min Est GFR (MDRD) Af Amer 60 (>60) mL/min Est GFR (MDRD) Non-Af 50 L (>60) mL/min BUN/Creatinine Ratio 34.8 H (10-20) RATIO Glucose 102 (74-106) mg/dL Uric Acid (2.6-6.0) mg/dL Calcium 8.7 (8.5-10.1) mg/dL Phosphorus (2.5-4.9) mg/dL Magnesium (1.6-2.6) mg/dL AST (15-37) U/L Total Creatine Kinase (26-192) U/L Troponin I 0.251 H (<0.045) ng/mL Albumin (3.2-5.0) g/dL PTH Intact (18.4-80.1) pg/mL Urine Color (Yellow) Urine Clarity (Clear) Urine pH (5.0 - 8.0) Ur Specific [place] (1.002-1.030) Urine Protein (Negative) mg/dl Urine Glucose (UA) (Normal) mg/dl Urine Ketones (Negative) mg/dl Urine Occult Blood (Negative) /ul Urine Nitrite (Negative) Urine Bilirubin (Negative) mg/dL Urine Urobilinogen (Normal) mg/dl Ur Leukocyte Esterase (Negative) /ul Urine RBC (0-5) /hpf Urine WBC (0-5) /hpf Ur Squamous Epith Cells (5-10) /hpf Urine Bacteria (None Seen) /hpf Urine Mucus (<or=2+) /hpf Ur Random Sodium (Not Establ.) mmol/L Urine Creatinine (NO RANGE EST.) mg/dL Digoxin (0.80-2.00) ng/mL Blood Type Antibody Screen Crossmatch 08/04/18 08/04/18 08/04/18 Range/Units 21:07 18:30 17:30 WBC 17.9 H (4.4-11.0) K/mm3 RBC 2.34 L (4.2-5.4) M/mm3 Hgb 7.4 L (12.0-15.0) g/dl Hct 23.9 L (37-47) % MCV 102.1 H (81-99) fL MCH 31.6 (27.0-32.0) pg MCHC 31.0 L (32-36) g/gl RDW 15.6 H (11.6-14.6) % RDW Differential 57.1 H (35.1-43.9) fl Plt Count 278 (150-450) K/mm3 MPV 9.8 (6.2-12.0) fl Immature Gran % (Auto) 0.300 (0.0-0.9) % Neut % (Auto) 74.2 H (47-70) % Lymph % (Auto) 15.8 L (19-41) % Fisher % (Auto) 5.5 (0-10) % Eos % (Auto) 3.7 (0-5) % Baso % (Auto) 0.5 (0-1) % Absolute Neuts (auto) 13.3 H (2.0-7.7) X10^3/uL Absolute Lymphs (auto) 2.82 (0.83-4.51) X10^3/ul Total Counted Not Reportable ESR (0-30) mm/hr PT (11.7-14.9) SECONDS INR APTT (24.1-36.2) Seconds Sodium (136-145) mmol/L Potassium (3.5-5.1) mmol/L Chloride (98-107) mmol/L Carbon Dioxide (21.0-32.0) mmol/L Anion Gap (5-15) BUN (7-18) mg/dL Creatinine (0.55-1.02) mg/dL Estim Creat Clear Calc ml/min Est GFR (MDRD) Af Amer (>60) mL/min Est GFR (MDRD) Non-Af (>60) mL/min BUN/Creatinine Ratio (10-20) RATIO Glucose (74-106) mg/dL Uric Acid (2.6-6.0) mg/dL Calcium (8.5-10.1) mg/dL Phosphorus (2.5-4.9) mg/dL Magnesium (1.6-2.6) mg/dL AST (15-37) U/L Total Creatine Kinase (26-192) U/L Troponin I 0.276 H 0.278 H (<0.045) ng/mL Albumin (3.2-5.0) g/dL PTH Intact (18.4-80.1) pg/mL Urine Color (Yellow) Urine Clarity (Clear) Urine pH (5.0 - 8.0) Ur Specific [place] (1.002-1.030) Urine Protein (Negative) mg/dl Urine Glucose (UA) (Normal) mg/dl Urine Ketones (Negative) mg/dl Urine Occult Blood (Negative) /ul Urine Nitrite (Negative) Urine Bilirubin (Negative) mg/dL Urine Urobilinogen (Normal) mg/dl Ur Leukocyte Esterase (Negative) /ul Urine RBC (0-5) /hpf Urine WBC (0-5) /hpf Ur Squamous Epith Cells (5-10) /hpf Urine Bacteria (None Seen) /hpf Urine Mucus (<or=2+) /hpf Ur Random Sodium (Not Establ.) mmol/L Urine Creatinine (NO RANGE EST.) mg/dL Digoxin (0.80-2.00) ng/mL Blood Type Antibody Screen Crossmatch 08/04/18 08/04/18 08/03/18 Range/Units 05:25 05:25 22:00 WBC (4.4-11.0) K/mm3 RBC (4.2-5.4) M/mm3 Hgb 8.2 L 7.2 L (12.0-15.0) g/dl Hct 25.9 L 22.4 L (37-47) % MCV (81-99) fL MCH (27.0-32.0) pg MCHC (32-36) g/gl RDW (11.6-14.6) % RDW Differential (35.1-43.9) fl Plt Count (150-450) K/mm3 MPV (6.2-12.0) fl Immature Gran % (Auto) (0.0-0.9) % Neut % (Auto) (47-70) % Lymph % (Auto) (19-41) % Fisher % (Auto) (0-10) % Eos % (Auto) (0-5) % Baso % (Auto) (0-1) % Absolute Neuts (auto) (2.0-7.7) X10^3/uL Absolute Lymphs (auto) (0.83-4.51) X10^3/ul Total Counted ESR (0-30) mm/hr PT (11.7-14.9) SECONDS INR APTT (24.1-36.2) Seconds Sodium 146 H (136-145) mmol/L Potassium 4.6 (3.5-5.1) mmol/L Chloride 113 H (98-107) mmol/L Carbon Dioxide 26.0 (21.0-32.0) mmol/L Anion Gap 7 (5-15) BUN 47 H (7-18) mg/dL Creatinine 1.25 H (0.55-1.02) mg/dL Estim Creat Clear Calc 27.92 ml/min Est GFR (MDRD) Af Amer 53 L (>60) mL/min Est GFR (MDRD) Non-Af 44 L (>60) mL/min BUN/Creatinine Ratio 37.6 H (10-20) RATIO Glucose 94 (74-106) mg/dL Uric Acid (2.6-6.0) mg/dL Calcium 9.2 (8.5-10.1) mg/dL Phosphorus (2.5-4.9) mg/dL Magnesium (1.6-2.6) mg/dL AST (15-37) U/L Total Creatine Kinase (26-192) U/L Troponin I (<0.045) ng/mL Albumin (3.2-5.0) g/dL PTH Intact (18.4-80.1) pg/mL Urine Color (Yellow) Urine Clarity (Clear) Urine pH (5.0 - 8.0) Ur Specific [place] (1.002-1.030) Urine Protein (Negative) mg/dl Urine Glucose (UA) (Normal) mg/dl Urine Ketones (Negative) mg/dl Urine Occult Blood (Negative) /ul Urine Nitrite (Negative) Urine Bilirubin (Negative) mg/dL Urine Urobilinogen (Normal) mg/dl Ur Leukocyte Esterase (Negative) /ul Urine RBC (0-5) /hpf Urine WBC (0-5) /hpf Ur Squamous Epith Cells (5-10) /hpf Urine Bacteria (None Seen) /hpf Urine Mucus (<or=2+) /hpf Ur Random Sodium (Not Establ.) mmol/L Urine Creatinine (NO RANGE EST.) mg/dL Digoxin (0.80-2.00) ng/mL Blood Type Antibody Screen Crossmatch 08/03/18 08/03/18 08/03/18 Range/Units 07:25 07:25 02:45 WBC (4.4-11.0) K/mm3 RBC (4.2-5.4) M/mm3 Hgb 8.9 L (12.0-15.0) g/dl Hct 27.5 L (37-47) % MCV (81-99) fL MCH (27.0-32.0) pg MCHC (32-36) g/gl RDW (11.6-14.6) % RDW Differential (35.1-43.9) fl Plt Count (150-450) K/mm3 MPV (6.2-12.0) fl Immature Gran % (Auto) (0.0-0.9) % Neut % (Auto) (47-70) % Lymph % (Auto) (19-41) % Fisher % (Auto) (0-10) % Eos % (Auto) (0-5) % Baso % (Auto) (0-1) % Absolute Neuts (auto) (2.0-7.7) X10^3/uL Absolute Lymphs (auto) (0.83-4.51) X10^3/ul Total Counted ESR (0-30) mm/hr PT (11.7-14.9) SECONDS INR APTT (24.1-36.2) Seconds Sodium (136-145) mmol/L Potassium (3.5-5.1) mmol/L Chloride (98-107) mmol/L Carbon Dioxide (21.0-32.0) mmol/L Anion Gap (5-15) BUN (7-18) mg/dL Creatinine (0.55-1.02) mg/dL Estim Creat Clear Calc ml/min Est GFR (MDRD) Af Amer (>60) mL/min Est GFR (MDRD) Non-Af (>60) mL/min BUN/Creatinine Ratio (10-20) RATIO Glucose (74-106) mg/dL Uric Acid (2.6-6.0) mg/dL Calcium (8.5-10.1) mg/dL Phosphorus (2.5-4.9) mg/dL Magnesium (1.6-2.6) mg/dL AST (15-37) U/L Total Creatine Kinase (26-192) U/L Troponin I (<0.045) ng/mL Albumin (3.2-5.0) g/dL PTH Intact (18.4-80.1) pg/mL Urine Color (Yellow) Urine Clarity (Clear) Urine pH (5.0 - 8.0) Ur Specific [place] (1.002-1.030) Urine Protein (Negative) mg/dl Urine Glucose (UA) (Normal) mg/dl Urine Ketones (Negative) mg/dl Urine Occult Blood (Negative) /ul Urine Nitrite (Negative) Urine Bilirubin (Negative) mg/dL Urine Urobilinogen (Normal) mg/dl Ur Leukocyte Esterase (Negative) /ul Urine RBC (0-5) /hpf Urine WBC (0-5) /hpf Ur Squamous Epith Cells (5-10) /hpf Urine Bacteria (None Seen) /hpf Urine Mucus (<or=2+) /hpf Ur Random Sodium (Not Establ.) mmol/L Urine Creatinine (NO RANGE EST.) mg/dL Digoxin 0.94 (0.80-2.00) ng/mL Blood Type Antibody Screen Crossmatch See Detail 08/03/18 08/03/18 08/03/18 Range/Units 02:45 02:45 02:45 WBC (4.4-11.0) K/mm3 RBC (4.2-5.4) M/mm3 Hgb (12.0-15.0) g/dl Hct (37-47) % MCV (81-99) fL MCH (27.0-32.0) pg MCHC (32-36) g/gl RDW (11.6-14.6) % RDW Differential (35.1-43.9) fl Plt Count (150-450) K/mm3 MPV (6.2-12.0) fl Immature Gran % (Auto) (0.0-0.9) % Neut % (Auto) (47-70) % Lymph % (Auto) (19-41) % Fisher % (Auto) (0-10) % Eos % (Auto) (0-5) % Baso % (Auto) (0-1) % Absolute Neuts (auto) (2.0-7.7) X10^3/uL Absolute Lymphs (auto) (0.83-4.51) X10^3/ul Total Counted ESR (0-30) mm/hr PT 14.9 (11.7-14.9) SECONDS INR 1.2 APTT 23.1 L (24.1-36.2) Seconds Sodium 143 (136-145) mmol/L Potassium 5.1 (3.5-5.1) mmol/L Chloride 107 (98-107) mmol/L Carbon Dioxide 27.0 (21.0-32.0) mmol/L Anion Gap 9 (5-15) BUN 68 H (7-18) mg/dL Creatinine 1.30 H (0.55-1.02) mg/dL Estim Creat Clear Calc 26.84 ml/min Est GFR (MDRD) Af Amer 51 L (>60) mL/min Est GFR (MDRD) Non-Af 42 L (>60) mL/min BUN/Creatinine Ratio 52.3 H (10-20) RATIO Glucose 177 H (74-106) mg/dL Uric Acid (2.6-6.0) mg/dL Calcium 9.9 (8.5-10.1) mg/dL Phosphorus (2.5-4.9) mg/dL Magnesium (1.6-2.6) mg/dL AST (15-37) U/L Total Creatine Kinase (26-192) U/L Troponin I 0.017 (<0.045) ng/mL Albumin (3.2-5.0) g/dL PTH Intact (18.4-80.1) pg/mL Urine Color (Yellow) Urine Clarity (Clear) Urine pH (5.0 - 8.0) Ur Specific [place] (1.002-1.030) Urine Protein (Negative) mg/dl Urine Glucose (UA) (Normal) mg/dl Urine Ketones (Negative) mg/dl Urine Occult Blood (Negative) /ul Urine Nitrite (Negative) Urine Bilirubin (Negative) mg/dL Urine Urobilinogen (Normal) mg/dl Ur Leukocyte Esterase (Negative) /ul Urine RBC (0-5) /hpf Urine WBC (0-5) /hpf Ur Squamous Epith Cells (5-10) /hpf Urine Bacteria (None Seen) /hpf Urine Mucus (<or=2+) /hpf Ur Random Sodium (Not Establ.) mmol/L Urine Creatinine (NO RANGE EST.) mg/dL Digoxin (0.80-2.00) ng/mL Blood Type A POSITIVE Antibody Screen NEGATIVE Crossmatch See Detail 08/03/18 Range/Units 02:45 WBC 9.1 (4.4-11.0) K/mm3 RBC 3.09 L (4.2-5.4) M/mm3 Hgb 10.0 L (12.0-15.0) g/dl Hct 31.7 L (37-47) % MCV 102.6 H (81-99) fL MCH 32.4 H (27.0-32.0) pg MCHC 31.5 L (32-36) g/gl RDW 13.2 (11.6-14.6) % RDW Differential 49.5 H (35.1-43.9) fl Plt Count 305 (150-450) K/mm3 MPV 9.9 (6.2-12.0) fl Immature Gran % (Auto) 0.300 (0.0-0.9) % Neut % (Auto) 70.7 H (47-70) % Lymph % (Auto) 21.8 (19-41) % Fisher % (Auto) 4.5 (0-10) % Eos % (Auto) 2.3 (0-5) % Baso % (Auto) 0.4 (0-1) % Absolute Neuts (auto) 6.4 (2.0-7.7) X10^3/uL Absolute Lymphs (auto) 1.98 (0.83-4.51) X10^3/ul Total Counted Not Reportable ESR (0-30) mm/hr PT (11.7-14.9) SECONDS INR APTT (24.1-36.2) Seconds Sodium (136-145) mmol/L Potassium (3.5-5.1) mmol/L Chloride (98-107) mmol/L Carbon Dioxide (21.0-32.0) mmol/L Anion Gap (5-15) BUN (7-18) mg/dL Creatinine (0.55-1.02) mg/dL Estim Creat Clear Calc ml/min Est GFR (MDRD) Af Amer (>60) mL/min Est GFR (MDRD) Non-Af (>60) mL/min BUN/Creatinine Ratio (10-20) RATIO Glucose (74-106) mg/dL Uric Acid (2.6-6.0) mg/dL Calcium (8.5-10.1) mg/dL Phosphorus (2.5-4.9) mg/dL Magnesium (1.6-2.6) mg/dL AST (15-37) U/L Total Creatine Kinase (26-192) U/L Troponin I (<0.045) ng/mL Albumin (3.2-5.0) g/dL PTH Intact (18.4-80.1) pg/mL Urine Color (Yellow) Urine Clarity (Clear) Urine pH (5.0 - 8.0) Ur Specific [place] (1.002-1.030) Urine Protein (Negative) mg/dl Urine Glucose (UA) (Normal) mg/dl Urine Ketones (Negative) mg/dl Urine Occult Blood (Negative) /ul Urine Nitrite (Negative) Urine Bilirubin (Negative) mg/dL Urine Urobilinogen (Normal) mg/dl Ur Leukocyte Esterase (Negative) /ul Urine RBC (0-5) /hpf Urine WBC (0-5) /hpf Ur Squamous Epith Cells (5-10) /hpf Urine Bacteria (None Seen) /hpf Urine Mucus (<or=2+) /hpf Ur Random Sodium (Not Establ.) mmol/L Urine Creatinine (NO RANGE EST.) mg/dL Digoxin (0.80-2.00) ng/mL Blood Type Antibody Screen Crossmatch Dr. Demar Schwartz and Dr. Roberto Emanuel-end stapler Dr. Michelle Hull-nephrology Dr. Tristen Shaikh-[facility] general surgery Dr. Ciera Bazan-[facility] general surgery Operations: None Procedures: 2-D Echocardiogram - Moderate concentric left ventricular hypertrophy, ejection fraction 35%, segmental systolic dysfunction, moderate left atrial enlargement, 2+ mitral insufficiency, 2+ tricuspid insufficiency, EGD - Normal stomach and esophagus. 1 oozing duodenal ulcer with adherent clot- injected with epinephrine Summary of Care Provided: The patient is a 82 year old F with a past medical history of coronary artery disease, cardiomyopathy, CABG, severe peripheral vascular disease, hypothyroidism, stage IV chronic renal failure, pacemaker implantation, systolic congestive heart failure, hypertension, osteoporosis, parathyroid adenoma, hyperparathyroidism and COPD who presented to the emergency department at [facility] on 08/03/2018 with complaints of tarry black stool, and coffee-ground emesis. Hemoglobin in the emergency department was 10. She was admitted to the intensive care unit and an EGD was performed on 08/04/2018 showing a large duodenal ulcer with adherent clot and a small amount of oozing. The ulcer was injected by Dr. Bazan with epinephrine and a repeat EGD was performed on 08/05/2018 and it did not show any bleeding. She was transfused with 3 units of packed red blood cells during her hospital admission. With blood products and intravenous fluids she developed acute systolic congestive heart failure and was diuresed with a few doses of Lasix. The congestive heart failure resolved however she developed acute on chronic renal failure and her creatinine peaked at 1.92. Fractional excretion of sodium was consistent with prerenal azotemia. Dr. Michelle Hull was consulted to participate in management and the patient was gently hydrated. The creatinine at RI is 1.22. Following diuresis she also developed a red, swollen and painful R middle finger. WBC was elevated and she had a low grade fever. She was started on Cefepime for presumed hospital acquired cellulitis. She went on to develop redness, increased warmth and swelling of her right ankle and it was exquisitely tender to even light touch. Uric acid was checked and was 9.9. She was started on prednisone 20 mg daily and after 3 doses the pain is much improved and you can touch her ankle without her crying out in pain now. Cefepime was discontinued because the swollen painful right middle finger was most likely acute gouty arthritis as well. Fevers resolved with institution of prednisone. Because of the acute gouty arthritis she was unable to bear weight on her feet and has been unable to ambulate. She is being transferred to the transitional care unit on 08/13/2018 for further PT/OT prior to returning home. She will need to follow-up with Dr. Bazan in 4-6 weeks to reevaluate the ulcer. She will follow-up with Dr. Michelle Hull for chronic stage IV kidney failure following discharge from TCU. She will also follow-up with Dr. Maury Fuller who she sees for severe peripheral vascular disease. She will follow-up with Dr. Sudhir Fuller iii for her routine medical care. - Physical Exam General: Alert, Oriented x3, Cooperative, No apparent distress, she appears to be much more comfortable today. Oral: Moist Mucosa Neck: No JVD Lungs: Rales - few coarse rales in the bases that mostly resolved after a few deep breaths, - - No conversational dyspnea, no accessory muscle use, not tachypneic, symmetric chest expansion Cardiovascular: Regular rate, Regular Rhythm, Normal S1, Normal S2, No rub noted, No Gallop Abdomen: Bowel Sounds Present, Soft, Non Tender, Non-Distended Extremities: Edema - of the feet BL R>L. There is less redness of the R ankle and first MTP today and I can touch the ankle and move it with no significant pain today. The ankle is still warm to touch. The right second finger is a purplish color with no increased warmth to touch......the PIP joint is less swollen and painful Skin: No rashes Neurological: Cranial nerves II-XII grossly intact, Neuro grossly intact Psych/Mental Status: Normal Affect, Appropriate and in a good mood today This note was generated with [employer] dictation software. It may contain incorrect words, spelling, and punctuation that were not noted in checking the note before signing. Patient Problems: Active and Suspected Problems (Last Reviewed 08/03/18 @ 07:33 by Messi Hendricks MD) Acute upper GI bleed (Acute) PUD with duodenal ulcer Acute gouty arthritis (Acute) Acute systolic (congestive) heart failure (Acute) Acute blood loss anemia (Acute) - Physical Exam Vital Signs Temp Pulse Resp BP Pulse Ox 98.1 F 61 20 H 137/73 H 96 08/13/18 09:02 08/13/18 09:02 08/13/18 09:02 08/13/18 09:02 08/13/18 09:02 Oxygen Flow Rate (L/min) 2 Oxygen Delivery Method Room Air Weight: 118 lb 13.266 oz Body Mass Index (BMI) 21.9 Intake and Output for Last 24 Hours 08/11/18 08/12/18 08/13/18 23:59 23:59 23:59 Intake Total 650 / 650 1881 / 1881 1143 / 1143 Output Total 550 / 550 1051 / 1051 1100 / 1100 Balance 100 / 100 830 / 830 43 / 43 Microbiology Past 72 Hours 08/08/18 18:00 Urine Culture - Final Urine Catheter - Catheter Culture exhibits no growth. 08/08/18 05:10 Blood Culture - Preliminary Blood Culture (Wb) - Right Forearm No growth in 48 hours. 08/08/18 05:08 Blood Culture - Preliminary Blood Culture (Wb) - Right Hand No growth in 48 hours. Laboratory Tests Past 24 Hrs 08/13/18 08/13/18 06:46 06:46 Hgb 8.2 L Hct 26.1 L Sodium 140 Potassium 4.8 Chloride 108 H Carbon Dioxide 25.0 Anion Gap 7 BUN 37 H Creatinine 1.22 H Estim Creat Clear Calc 27.29 Est GFR (MDRD) Af Amer 54 L Est GFR (MDRD) Non-Af 45 L BUN/Creatinine Ratio 30.3 H Glucose 95 Calcium 9.2 Home Medications: Medications to take at Discharge Clopidogrel Bisulfate [Plavix] 75 mg PO DAILY 12/15/16 Levothyroxine [Synthroid] 100 mcg PO DAILY 07/08/17 Lorazepam [Ativan] 0.5 mg PO QHS PRN PRN 07/08/17 Nitroglycerin [Nitrostat] 0.4 mg SL PRN PRN 07/08/17 Cholecalciferol (VIT D3) [Vitamin D3] 2,000 unit PO DAILY 08/03/18 Gabapentin [Neurontin] 100 mg PO BIDCM 08/03/18 Risedronate [Actonel] 35 mg PO QWEEK 08/03/18 Carvedilol [Coreg (Beta Sonya)] 12.5 mg PO BID tablet 08/13/18 Hydrocodone Bitart/Apap 5-325 [[place] 5/325] 1 tablet PO Q6H PRN PRN #1 tablet 08/13/18 Pantoprazole Sodium [Protonix] 40 mg PO BID tablet 08/13/18 predniSONE tablet 20 mg PO DAILY@0800 #2 tablet 08/13/18 Primary Care Physician: Sudhir Fuller III, MD [Primary Care Provider] - Please follow up with your Primary Care Physician in: following DC from TCU Please Follow Up With: Dr. Ciera Bazan When: after DC from TCU for follow up on the duodenal ulcer Please Follow Up With: Michelle Hull DO When: Following DC from TCU Please Follow Up With: Maury Fuller MD When: as instructed by Dr. Fuller Disposition: Retirement facility Minutes spent on discharge:: 40 Patient Condition:: Stable Medical Necessity - Tobacco Use Smoking Status: Never smoker Meaningful Use Info Meaningful Use Diagnoses (Choose all that apply): CHF - CHF LEDY/ARB ordered at discharge?: No Reason LEDY/ARB not ordered?: Worsening renal dysfunctn Documented LVEF (%): 35 Code Visit Inpatient E&M: 86145 Disch Hosp
[2018-08-13] MEDS: Heparin Injection (Vial) 5,000 UNIT/ML VIAL 5000 UNIT SC (09:59)
[2018-08-13 13:36] VITALS: BP 141/66; PULSE 60; RESP 18; TEMP 36.7; O2SAT 95
--- OUTSIDE RECORDS SUMMARY | 2018-09-19 01:03 | XMS RPT_ITS ---
:1935 Author Organization OHIP Support Name Relationship Address Phone ICE, TREECIE Unavailable Unavailable + [place] [address] R Unavailable Unavailable Unavailable ICE, TREECIE Unavailable [address] + [place] [address] R Unavailable Unavailable Unavailable ICE, TREECIE Unavailable [address] + [place] [address] R Unavailable Unavailable Unavailable ICE, TREECIE Unavailable [address] + [place] [address] R Unavailable Unavailable Unavailable ICE, TREECIE Unavailable [address] + [place] [address] R Unavailable Unavailable Unavailable ICE, TREECIE Unavailable [address] + [place] [address] R Unavailable Unavailable Unavailable ICE, TREECIE Unavailable [address] + [place] [address] R Unavailable Unavailable Unavailable ICE, TREECIE Unavailable [address] + [place] [address] R Unavailable Unavailable Unavailable ICE, TREECIE Unavailable [address] + [place] [address] R Unavailable Unavailable Unavailable ICE, TREECIE Unavailable [address] + [place] [address] R Unavailable Unavailable Unavailable ICE, TREECIE Unavailable [address] + [place] [address] R Unavailable Unavailable Unavailable ICE, TREECIE Unavailable [address] + [place] [address] R Unavailable Unavailable Unavailable ICE, TREECIE Unavailable [address] + [place] [address] R Unavailable Unavailable Unavailable ICE, TREECIE Unavailable [address] + [place] [address] R Unavailable Unavailable Unavailable ICE, TREECIE Unavailable [address] + [place] [address] R Unavailable Unavailable Unavailable ICE, TREECIE Unavailable Unavailable + [place] [address] R Unavailable Unavailable Unavailable ICE, TREECIE Unavailable Unavailable + [place] [address] R Unavailable Unavailable Unavailable ICE, TREECIE Unavailable Unavailable + [place] [address] R Unavailable Unavailable Unavailable ICE, TREECIE Unavailable [address] + [place] [address] R Unavailable Unavailable Unavailable ICE, TREECIE Unavailable [address] + [place] [address] R Unavailable Unavailable Unavailable R Unavailable Unavailable Unavailable Care Team Providers Name Role Phone [facility], [facility] Unavailable Agyepong, Messi Admitting Unavailable Dontrell Reeder Attending Unavailable Ciera Bazan Consulting Unavailable Efren, Demar Consulting Unavailable Michelle Hull Consulting Unavailable Agyepong, Messi Admitting Unavailable Agyepong, Messi Attending Unavailable [facility], [facility] Unavailable Jomarkos, Dontrell Consulting Unavailable Agyepong, Messi Admitting Unavailable JoppDontrell klein Attending Unavailable Cel III, Mariaa Primary Care Unavailable Ciera Bazan Consulting Unavailable Jomarkos, Dontrell Consulting Unavailable Agyepong, Messi Admitting Unavailable JoDontrell burrows Attending Unavailable Cel III, Mariaa Primary Care Unavailable Ciera Bazan Consulting Unavailable Efren, Demar Consulting Unavailable Jopperi, Dontrell Consulting Unavailable Agyepong, Messi Admitting Unavailable Efren, Demar Attending Unavailable Cel III, Mariaa Primary [facility] Unavailable Izabel Bazana Consulting Unavailable Efren, Demar Consulting Unavailable Jopplatoya, Dontrell Consulting Unavailable Agyepong, Messi Admitting Unavailable Semendamir, Lara Attending Unavailable [facility], [facility] Unavailable Izabel Bazana Consulting Unavailable Efren, Demar Consulting Unavailable Semendaimr, Lara Consulting Unavailable Agyepong, Messi Admitting Unavailable Efren, Demar Attending Unavailable [facility], [facility] Unavailable Bazan, Ciera Consulting Unavailable Efren, Demar Consulting Unavailable Sementi, Lara Consulting Unavailable Agyepong, Messi Admitting Unavailable Sementi, Lara Attending Unavailable Cebul III, [facility] Unavailable Bazan, Ciera Consulting Unavailable Efren, Demar Consulting Unavailable Sementi, Lara Consulting Unavailable Agyepong, Messi Admitting Unavailable Efren, Demar Attending Unavailable Cebul III, [facility] Unavailable Bazan, Ciera Consulting Unavailable Efren, Demar Consulting Unavailable Sementi, Lara Consulting Unavailable Agyepong, Messi Admitting Unavailable Sementi, Lara Attending Unavailable [facility]ebul III, [facility] Unavailable Bazan, Ciera Consulting Unavailable Efren, Demar Consulting Unavailable Sementi, Lara Consulting Unavailable Agyepong, Messi Admitting Unavailable Sementi, Lara Attending Unavailable Cel III, [facility] Unavailable Bazan, Ciera Consulting Unavailable Efren, Demar Consulting Unavailable Sementi, Lara Consulting Unavailable Agyepong, Messi Admitting Unavailable Sementi, Lara Attending Unavailable Cebul III, [facility] Unavailable Bazan, Ciera Consulting Unavailable Efren, Demar Consulting Unavailable Sementi, Lara Consulting Unavailable Cebul, Maury Attending Unavailable Cebul III, Mariaa Referring Unavailable Cebul, Maury Attending Unavailable Cebul, Maury Referring Unavailable [facility]ul III, [facility] Unavailable Agyepong, Messi Admitting Unavailable Sementi, Lara Attending Unavailable [facility], [facility] Unavailable Bazan, Ciera Consulting Unavailable Efren, Demar Consulting Unavailable Kurtis, Michelle Consulting Unavailable Sementi, Lara Consulting Unavailable Agyepong, Messi Admitting Unavailable Sementi, Lara Attending Unavailable Cebul III, [facility] Unavailable Bazan, Ciera Consulting Unavailable Efren, Demar Consulting Unavailable Kurtis, Michelle Consulting Unavailable Sementi, Lara Consulting Unavailable Agyepong, Messi Admitting Unavailable Sementi, Lara Attending Unavailable [facility]ebul III, [facility] Unavailable Bazan, Ciera Consulting Unavailable Efren, Demar Consulting Unavailable Kurtis, Michelle Consulting Unavailable Jopperi Dontrell Consulting Unavailable Sunil, Juvenal Chi Admitting Unavailable Sunil, Juvenal Chi Attending Unavailable [facility] III, [facility] Unavailable Mark Hernandez Attending Unavailable Dontrell Reeder Referring Unavailable Mark Hernandez Attending Unavailable Dontrell Reeder Referring Unavailable ZACHARY NEAL Attending Unavailable ZACHARY NEAL Referring Unavailable CEBUL III, MARIAA A Attending Unavailable ÁNGEL, ZACHARY Attending Unavailable ÁNGEL, ZACHARY Referring Unavailable CEBUL III, MARIAA A Attending Unavailable ÁNGEL, ZACHARY Attending Unavailable ÁNGEL, ZACHARY Referring Unavailable ÁNGEL, ZACHARY Attending Unavailable ÁNGEL, ZACHARY Referring Unavailable CEBUL III, MARIAA A Attending Unavailable VERNON HARDING (PATIENT SAFETY SITTER) Referring Unavailable VERNON HARDING (PATIENT SAFETY SITTER) Attending Unavailable CEBUL III, MARIAA Bolden Referring Unavailable CIERA BAZAN Attending Unavailable CEBUL III, MARIAA A Referring Unavailable CEBUL III, MARIAA A Referring Unavailable CEBUL III, MARIAA A Referring Unavailable CEBUL III, MARIAA A Referring Unavailable CEBUL III, MARIAA A Referring Unavailable CEBUL, MARIAA A Attending Unavailable PROBLEMS PROBLEMS DATE TYPE CONDITION / CODE ATTENDING STATUS SOURCE Unknown R53.81 - Other malaise Sunil, Juvenal Chi Active [place] 9 / R53.81(ICD-10) [facility] Repository Unknown I73.9 - Peripheral Dontrell Reeder Active [facility] vascular disease, Community unspecified / Hospital I73.9(ICD-10) Repository Unknown M10.9 - Gout, Dontrell Reeder Active [place] 8 unspecified / Community M10.9(ICD-10) Hospital Repository Unknown R94.31 - Abnormal David, Mark Active [facility] electrocardiogram Community [ECG] [EKG] / Hospital R94.31(ICD-10) Repository Active Vitamin D deficiency, NA Active [facility] unspecified / Clinic Main E55.9(ICD-10) [place] Repository Active Hypercalcemia / NA Active [facility] E83.52(ICD-10) Clinic Main [place] Repository Active Hyperparathyroidism, NA Active [facility] unspecified / Clinic Main E21.3(ICD-10) [place] Repository Active Hypothyroidism, NA Active [facility] unspecified / Clinic Main E03.9(ICD-10) [place] Repository Unknown J06.9 - Acute upper Cebul, Maury Active [place] 8 respiratory infection, Community unspecified / Hospital J06.9(ICD-10) Repository Active Peripheral vascular NA Active [facility] disease, unspecified / Clinic Main I73.9(ICD-10) [place] Repository Active Hyperlipidemia, NA Active [place] 5 unspecified / Clinic Main E78.5(ICD-10) [place] Repository Active Pain in right leg / NA Active [place] 8 M79.604(ICD-10) Clinic Main [place] Repository Admitting Unknown / UNK(Unknown) MARIAA MG [place] [id number] diagnosis Hospital Repository Active 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 REPOSITORY HNO ID: [id number] Author: Mariaa Mg III Service: (none) Author Type: Physician Type: Progress Notes Filed: 09/08/2018 6:23 PM Note Text: SUBJECTIVE: This is a 82 year old female that is here today for Chronic Medical Conditions. 1. recent hospitalization x 5 wks. Had gout attack in [facility], on colchicine 0.6mg daily 1. ch anxiety--switched from ativan to trazodone 25mg daily. Detailed discussion with patient and daughter regarding this change. We discussed that she cannot be on both atenolol. (Tramadol) and benzodiazepine concurrently. Since she was taking lorazepam primarily for sleep I explained that replacing it with trazodone would be a safer choice. 2. recently prescribed tramadol for pain by Dr Barber for gout. Takes very little tramadol. 3. History of hyperparathyroidism with parathyroid adenoma. Reviewed the springer consult note with patient and daughter. Since the patient is not a surgical candidate and has had previous intolerance to sensipar, the recommendation is to treat for osteoporosis with prolia. All questions answered from pt and dtr. PAST MEDICAL HISTORY Diagnosis Date - Actinic keratosis 08/13/2011 - Cardiomyopathy (HCC) 03/29/2014 - CHF (congestive heart failure) ([facility]) 08/11/2010 - Chronic kidney disease (CKD), stage III (moderate) ([facility]) 11/18/2016 - Claudication ([facility]) 06/16/2017 - Diverticulosis of colon (without mention of hemorrhage) Diverticulosis - Essential hypertension, benign - External hemorrhoids without mention of complication - Hypercalcemia 02/19/2017 - Internal hemorrhoids without mention of complication - Lumbar degenerative disc disease 06/30/2013 - Malignant neoplasm of breast (female), unspecified site Breast cancer - Other osteoporosis - PAD (peripheral artery disease) (HCC) 05/12/2018 - Pure hypercholesterolemia - 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 digoxin (LANOXIN) 125 mcg tablet TAKE 1 TABLET BY MOUTH ONE TIME DAILY levothyroxine (SYNTHROID) 100 mcg tablet TAKE 1 TABLET BY MOUTH ONE TIME DAILY ON AN EMPTY STOMACH Cholecalciferol, Vitamin D3, 2,000 unit cap Take 1 capsule by mouth once daily. losartan (COZAAR) 100 mg tablet TAKE 1 TABLET BY MOUTH ONE TIME DAILY clopidogrel (PLAVIX) 75 mg tablet TAKE 1 TABLET BY MOUTH EVERY DAY spironolactone (ALDACTONE) 25 mg tablet TAKE 1 TABLET BY MOUTH DAILY furosemide (LASIX) 20 mg tablet Take 1 tablet by mouth once daily. meloxicam (MOBIC) 15 mg tablet Take 1 tablet by mouth once daily. With food. Tximukt-Eqxqimsffpedv-Xgjwdvuo (EXCEDRIN) 250-250-65 mg per tablet Take 1 tablet by mouth every 6 hours as needed for Pain. carvedilol (COREG) 25 mg tablet TAKE 1 TABLET BY MOUTH TWICE DAILY nitroglycerin sublingual (NITROSTAT) 0.4 mg SL tablet Dissolve 1 tablet under the tongue as needed. DISSOLVE ON TONGUE FOR CHEST PAIN. IF NO PAIN RELIEF, CALL 911 OTC PRODUCT Vitamin D 1000 mg daily. LORazepam (ATIVAN) 0.5 mg tab Take 1 tablet by mouth at bedtime as needed for up to 30 days. gabapentin (NEURONTIN) 100 mg capsule Take 1 capsule by mouth twice daily for 30 days. No current facility-administered medications on file prior to visit. FAMILY HISTORY Problem Relation Age of Onset - Cancer Mother ovarian - Heart Father - Breast Cancer Sister metastatic to bone Social History Substance Use Topics - Smoking status: Never Smoker - Smokeless tobacco: Never Used - Alcohol use No BP 122/60 (BP Site: Right Arm, BP Position: Sitting, BP Cuff Size: Regular Adult) Pulse 63 Resp 18 Wt 51.2 kg (112 lb 14.4 oz) BMI 22.05 kg/m? OBJECTIVE: APPEARANCE Well appearing, alert, in no acute distress, well-hydrated, well nourished. NECK Supple, no adenopathy; thyroid symmetric, normal size, no bruits HEART RRR with normal S1 and S2, no murmurs, no gallops, no JVD appreciated ASSESSMENT: Gout with recent exacerbation Hyperparathyroidism with parathyroid adenoma Hypertension?at goal Cardiomyopathy?stable Congestive heart failure?stable Hypercalcemia caused by hyperparathyroidism PLAN: continue trazodone 25 mg at bedtime for anxiety/depression/sleep finish entresto and restart losartan 100mg daily stay off spironolactone stay off lorazapam continue coreg 12.5 mg twice/day (instead of 25mg twice/day) continue colchicine for 10 days or until gout attacks ends ibuprofen 200-400 mg once/day as needed for headache or mild joint pain. calcium 600mg twice/day and vitamin D 1000 units/day will try to get Prolia authorized with insurance co. nurse BP check in 3 wks 30 minute visit with greater than 50% obtaining history, carefully going through her medication list which has many discrepancies between her prehospital and hospital discharge medications, explaining reasons for switching from lorazepam, making adjustments in blood pressure medications, and starting prolia Mariaa Mg III MD CNOV Observed: 09/08/2018 Status: COMPLETED Source: [place] 3:00 PM [facility] REPOSITORY Office Visit (FAMPWS) LI GRIFFITH ([id number]) 1935 F NFR Date Time Provider Department 09/08/18 3:00 PM MARIAA MG III During your visit today, we recorded the following information about you: Pulse Respiration Blood pressure Weight 63/minute 18/minute 122/60 51.2 kg Mariaa Mg III MD 09/08/2018 6:23 PM Signed SUBJECTIVE: This is a 82 year old female that is here today for Chronic Medical Conditions. 1. recent hospitalization x 5 wks. Had gout attack in [facility], on colchicine 0.6mg daily 1. ch anxiety--switched from ativan to trazodone 25mg daily. Detailed discussion with patient and daughter regarding this change. We discussed that she cannot be on both atenolol. (Tramadol) and benzodiazepine concurrently. Since she was taking lorazepam primarily for sleep I explained that replacing it with trazodone would be a safer choice. 2. recently prescribed tramadol for pain by Dr Barber for gout. Takes very little tramadol. 3. History of hyperparathyroidism with parathyroid adenoma. Reviewed the springer consult note with patient and daughter. Since the patient is not a surgical candidate and has had previous intolerance to sensipar, the recommendation is to treat for osteoporosis with prolia. All questions answered from pt and dtr. PAST MEDICAL HISTORY Diagnosis Date - Actinic keratosis 08/13/2011 - Cardiomyopathy ([facility]) 03/29/2014 - CHF (congestive heart failure) ([facility]) 08/11/2010 - Chronic kidney disease (CKD), stage III (moderate) ([facility]) 11/18/2016 - Claudication ([facility]) 06/16/2017 - Diverticulosis of colon (without mention of hemorrhage) Diverticulosis - Essential hypertension, benign - External hemorrhoids without mention of complication - Hypercalcemia 02/19/2017 - Internal hemorrhoids without mention of complication - Lumbar degenerative disc disease 06/30/2013 - Malignant neoplasm of breast (female), unspecified site Breast cancer - Other osteoporosis - PAD (peripheral artery disease) ([facility]) 05/12/2018 - Pure hypercholesterolemia - 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 digoxin (LANOXIN) 125 mcg tablet TAKE 1 TABLET BY MOUTH ONE TIME DAILY levothyroxine (SYNTHROID) 100 mcg tablet TAKE 1 TABLET BY MOUTH ONE TIME DAILY ON AN EMPTY STOMACH Cholecalciferol, Vitamin D3, 2,000 unit cap Take 1 capsule by mouth once daily. losartan (COZAAR) 100 mg tablet TAKE 1 TABLET BY MOUTH ONE TIME DAILY clopidogrel (PLAVIX) 75 mg tablet TAKE 1 TABLET BY MOUTH EVERY DAY spironolactone (ALDACTONE) 25 mg tablet TAKE 1 TABLET BY MOUTH DAILY furosemide (LASIX) 20 mg tablet Take 1 tablet by mouth once daily. meloxicam (MOBIC) 15 mg tablet Take 1 tablet by mouth once daily. With food. Fmntsdy-Clkxgqsntnozo-Dusjjykb (EXCEDRIN) 250-250-65 mg per tablet Take 1 tablet by mouth every 6 hours as needed for Pain. carvedilol (COREG) 25 mg tablet TAKE 1 TABLET BY MOUTH TWICE DAILY nitroglycerin sublingual (NITROSTAT) 0.4 mg SL tablet Dissolve 1 tablet under the tongue as needed. DISSOLVE ON TONGUE FOR CHEST PAIN. IF NO PAIN RELIEF, CALL 911 OTC PRODUCT Vitamin D 1000 mg daily. LORazepam (ATIVAN) 0.5 mg tab Take 1 tablet by mouth at bedtime as needed for up to 30 days. gabapentin (NEURONTIN) 100 mg capsule Take 1 capsule by mouth twice daily for 30 days. No current facility-administered medications on file prior to visit. FAMILY HISTORY Problem Relation Age of Onset - Cancer Mother ovarian - Heart Father - Breast Cancer Sister metastatic to bone Social History Substance Use Topics - Smoking status: Never Smoker - Smokeless tobacco: Never Used - Alcohol use No BP 122/60 (BP Site: Right Arm, BP Position: Sitting, BP Cuff Size: Regular Adult) Pulse 63 Resp 18 Wt 51.2 kg (112 lb 14.4 oz) BMI 22.05 kg/m? OBJECTIVE: APPEARANCE Well appearing, alert, in no acute distress, well- hydrated, well nourished. NECK Supple, no adenopathy; thyroid symmetric, normal size, no bruits HEART RRR with normal S1 and S2, no murmurs, no gallops, no JVD appreciated ASSESSMENT: Gout with recent exacerbation Hyperparathyroidism with parathyroid adenoma Hypertension?at goal Cardiomyopathy?stable Congestive heart failure?stable Hypercalcemia caused by hyperparathyroidism PLAN: continue trazodone 25 mg at bedtime for anxiety/depression/sleep finish entresto and restart losartan 100mg daily stay off spironolactone stay off lorazapam continue coreg 12.5 mg twice/day (instead of 25mg twice/day) continue colchicine for 10 days or until gout attacks ends ibuprofen 200-400 mg once/day as needed for headache or mild joint pain. calcium 600mg twice/day and vitamin D 1000 units/day will try to get Prolia authorized with insurance co. nurse BP check in 3 wks 30 minute visit with greater than 50% obtaining history, carefully going through her medication list which has many discrepancies between her prehospital and hospital discharge medications, explaining reasons for switching from lorazepam, making adjustments in blood pressure medications, and starting prolia LIA Castelan MD, III MD 09/08/2018 4:18 PM Signed PLAN: continue trazodone 25 mg at bedtime for anxiety/depression/sleep finish entresto and restart losartan 100mg daily stay off spironolactone stay off lorazapam continue coreg 12.5 mg twice/day (instead of 25mg twice/day) continue colchicine for 10 days or until gout attacks ends ibuprofen 200-400 mg once/day as needed for headache or mild joint pain. calcium 600mg twice/day and vitamin D 1000 units/day will try to get Prolia authorized with insurance co. nurse BP check in 3 wks Mariaa Mg III MD Referring Provider: SELF [200] Allergies As of Date: 09/08/2018 Noted Allergy Reaction ACCUPRIL (QUINAPRIL HCL) 04/14/2005 2 - Rash ARTHROTEC 50 (DICLOFENAC-MISOPROS*04/14/2005 8 - GI Upset FOSAMAX (ALENDRONATE SODIUM) 01/31/2007 5 - Intolerance Comments: MUSCLE WEAKNESS LIPITOR (ATORVASTATIN CALCIUM) 06/29/2012 14 - Other: See Comments Comments: Muscle achiness MACRODANTIN (NITROFURANTOIN) 04/14/2005 2 - Rash PERCOCET (OXYCODONE-ACETAMINOPHEN)04/14/2005 5 - Intolerance Comments: off balance, elevated blood pressure [id number] REDUCTASE INHIBIT*08/30/2015 17 - Myalgia Date Reviewed: 09/08/2018 Reviewed by: Melinda Blair - Fully Assessed Reason for Visit: Hospital F/U [57] Cmt: D/C [facility] on 09/04/18 Primary Visit Diagnosis:Hospital discharge follow-up [Z09] Other Visit Diagnoses:Chronic insomnia [F51.04] Chronic anxiety [F41.9] Essential hypertension, benign [I10] Vitamin D deficiency [E55.9] Chronic kidney disease (CKD), stage III (moderate) (HCC) [N18.3] Hyperparathyroidism (HCC) [E21.3] Parathyroid adenoma [D35.1] Chronic congestive heart failure, unspecified heart failure type (HCC) [I50.9] Ischemic cardiomyopathy [I25.5] Order(s):traZODone (DESYREL) 50 mg tabletTake 0.5 tablets by mouth daily at bedtime.Disp: 45 tabletRfl: 3 carvedilol (COREG) 25 mg tabletTake 0.5 tablets by mouth twice daily.Disp: 180 tabletRfl: 3 Prescriptions as of 09/08/2018 Sig: TRAZODONE 50 MG TABLET Take 0.5 tablets by mouth alley* CARVEDILOL 25 MG TABLET Take 0.5 tablets by mouth twi* DENOSUMAB 60 MG/ML SUBCUTANEO* Inject 1 mL subcutaneously on* DIGOXIN 125 MCG TABLET TAKE 1 TABLET BY MOUTH ONE TI* LEVOTHYROXINE 100 MCG TABLET TAKE 1 TABLET BY MOUTH ONE TI* CHOLECALCIFEROL (VITAMIN D3) * Take 1 capsule by mouth once * LOSARTAN 100 MG TABLET TAKE 1 TABLET BY MOUTH ONE TI* CLOPIDOGREL 75 MG TABLET TAKE 1 TABLET BY MOUTH EVERY * FUROSEMIDE 20 MG TABLET Take 1 tablet by mouth once d* MELOXICAM 15 MG TABLET Take 1 tablet by mouth once d* NITROGLYCERIN 0.4 MG SUBLINGU* Dissolve 1 tablet under the t* OTC PRODUCT Vitamin D 1000 mg daily. GABAPENTIN 100 MG CAPSULE Take 1 capsule by mouth twice* Problem List As Of Date 09/08/2018 Noted Resolved BENIGN HYPERTENSION [I10] INVALID FOR* Acquired hypothyroidism [E03.9] INVALID FOR* Osteoporosis [M81.0] INVALID FOR* MALIGN NEOPL BREAST NOS [...] FOR* Other instructions from your clinician: PLAN: continue trazodone 25 mg at bedtime for anxiety/depression/sleep finish entresto and restart losartan 100mg daily stay off spironolactone stay off lorazapam continue coreg 12.5 mg twice/day (instead of 25mg twice/day) continue colchicine for 10 days or until gout attacks ends ibuprofen 200-400 mg once/day as needed for headache or mild joint pain. calcium 600mg twice/day and vitamin D 1000 units/day will try to get Prolia authorized with insurance co. nurse BP check in 3 wks Mariaa Mg III Prescriptions ordered this encounter Disp Refills Start End TRAZODONE 50 MG TABLET 45 t* 3 09/08/2018 Route: ORAL Sig: Take 0.5 tablets by mouth daily at bedtime. CARVEDILOL 25 MG TABLET 180 * 3 09/08/2018 Class: Med Update Route: ORAL Sig: Take 0.5 tablets by mouth twice daily. Medications Discontinued During This Encounter traZODone (DESYREL) 50 mg tablet 15 t* 5 09/06/2018 09/08/2018 Route: ORAL Sig: Take 0.5 tablets by mouth daily at bedtime. Disc: Reason for discontinue is not on file. LORazepam (ATIVAN) 0.5 mg tab 30 t* 0 08/02/2018 09/08/2018 Class: Call Rx Route: ORAL Sig: Take 1 tablet by mouth at bedtime as needed for up to 30 days. Disc: Clinical Decision spironolactone (ALDACTONE) 25 mg tab* 90 t* 2 05/25/2018 09/08/2018 Sig: TAKE 1 TABLET BY MOUTH DAILY Disc: Clinical Decision Egdvyqk-Eydlmbqegiyxj-Kcocreoo (EXCE* 09/08/2018 Class: Historical Med Route: ORAL Sig: Take 1 tablet by mouth every 6 hours as needed for Pain. Disc: Clinical Decision carvedilol (COREG) 25 mg tablet 180 * 3 02/24/2017 09/08/2018 Sig: TAKE 1 TABLET BY MOUTH TWICE DAILY Disc: Reason for discontinue is not on file. Encounter Status:Closed by MARIAA MG III, MD on 09/08/18 PROGRESS Observed: 09/08/2018 Status: COMPLETED Source: [place] 12:[address] [facility] [facility] [place] [facility] HNO ID: [id number] Author: Ciera Bazan Service: (none) Author Type: Physician Type: Progress Notes Filed: 09/10/2018 2:02 PM Note Text: CC: episode of duodenal bleeding ulcer HPI: 82 y/o WF with multiple medical morbidities had presented to [facility] with upper GI bleed. Presented to [facility] with UGI bleed. EGD 08/04/18 - duodenal bleeding ulcer Repeat EGD 08/05/18 - healing site. Denies abdominal pain. Denies blood in stools. Denies emesis No HI after procedure. She did admit to taking excedrin prior to presentation PAST?MEDICAL?HISTORY Actinic keratosis 08/13/2011 Cardiomyopathy (HCC) 03/29/2014 CHF (congestive heart failure) ([facility]) 08/11/2010 Chronic kidney disease (CKD), stage III (moderate) ([facility]) 11/18/2016 Claudication ([facility]) 06/16/2017 Diverticulosis of colon (without mention of hemorrhage) ? Essential hypertension, benign ? External hemorrhoids without mention of complication ? Hypercalcemia 02/19/2017 Internal hemorrhoids without mention of complication ? Lumbar degenerative disc disease 06/30/2013 Malignant neoplasm of breast (female), unspecified site Breast cancer Other osteoporosis ? Pure hypercholesterolemia ? 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 ? MEDICATIONS LORazepam (ATIVAN) 0.5 mg tab Take 1 tablet by mouth at bedtime as needed for up to 30 days. cinacalcet (SENSIPAR) 30 mg tablet Take 1 tablet by mouth twice daily. furosemide (LASIX) 20 mg tablet Take 1 tablet by mouth once daily. meloxicam (MOBIC) 15 mg tablet Take 1 tablet by mouth once daily. With food. Xutkmik-Pohxqoanwylnm-Ezhrneyu (EXCEDRIN) 250-250-65 mg per tablet Take 1 [...] OTC PRODUCT Vitamin D 1000 mg daily. ? SOCIAL?HISTORY Cancer Mother? ovarian Heart Father ? Breast Cancer Sister?Substance Use Topics Smoking status: Never Smoker Smokeless tobacco: Never Used Alcohol use No Review of systems: General: has had some weight loss, decreased appetite, denies fevers Cardiovascular: has pacemaker Respiratory: has shortness of breath with exertion Gastrointestinal - see above Neurological: denies seizures Kidneys - has chronic kidney disease Musculoskeletal - has bad knees PHYSICAL EXAMINATION: ? BP 142/62 Pulse 88 Temp 98.5 ?F Resp 16 Wt 120 lb General: APPEARANCE Well appearing, alert, in no acute distress, well-hydrated, well nourished. Neck supple with no JVD, trachea midline Eyes - wearing glasses, sclera clear Lungs clear to auscultation, no rhonchi/wheezing noted Heart sounds - regular Abdomen - soft and benign, normal bowel sounds EXTREMITIES mild lower dependent swelling bilaterally. IMPRESSION: History of duodenal ulcer with bleeding PLAN: Patient has no symptoms. More than likely, presentation of bleeding duodenal ulcer is due to her use of excedrin prior. I have recommended that she avoid aspirin use. Follow up as per needed. NESS Observed: 09/07/2018 Status: COMPLETED Source: [place] 2:10 PM [facility] Office Visit ([facility]) LI GRIFFITH ([id number]) 1935 F NFR Date Time Provider Department 09/07/18 2:10 PM CEIRA BAZAN During your visit today, we recorded the following information about you: Ciera Bazan MD 09/10/2018 2:02 PM Signed CC: episode of duodenal bleeding ulcer HPI: 82 y/o WF with multiple medical morbidities had presented to [facility] with upper GI bleed. Presented to [facility] with UGI bleed. EGD 08/04/18 - duodenal bleeding ulcer Repeat EGD 08/05/18 - healing site. Denies abdominal pain. Denies blood in stools. Denies emesis No HI after procedure. She did admit to taking excedrin prior to presentation PAST?MEDICAL?HISTORY Actinic keratosis 08/13/2011 Cardiomyopathy (HCC) 03/29/2014 CHF (congestive heart failure) ([facility]) 08/11/2010 Chronic kidney disease (CKD), stage III (moderate) ([facility]) 11/18/2016 Claudication ([facility]) 06/16/2017 Diverticulosis of colon (without mention of hemorrhage) ? Essential hypertension, benign ? External hemorrhoids without mention of complication ? Hypercalcemia 02/19/2017 Internal hemorrhoids without mention of complication ? Lumbar degenerative disc disease 06/30/2013 Malignant neoplasm of breast (female), unspecified site Breast cancer Other osteoporosis ? Pure hypercholesterolemia ? 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 ? MEDICATIONS LORazepam (ATIVAN) 0.5 mg tab Take 1 tablet by mouth at bedtime as needed for up to 30 days. cinacalcet (SENSIPAR) 30 mg tablet Take 1 tablet by mouth twice daily. furosemide (LASIX) 20 mg tablet Take 1 tablet by mouth once daily. meloxicam (MOBIC) 15 mg tablet Take 1 tablet by mouth once daily. With food. Udngdtx-Agijfaeuvkkeu-Jfrwqnzj (EXCEDRIN) 250-250-65 mg per tablet Take 1 [...] OTC PRODUCT Vitamin D 1000 mg daily. ? SOCIAL?HISTORY Cancer Mother? ovarian Heart Father ? Breast Cancer Sister?Substance Use Topics Smoking status: Never Smoker Smokeless tobacco: Never Used Alcohol use No Review of systems: General: has had some weight loss, decreased appetite, denies fevers Cardiovascular: has pacemaker Respiratory: has shortness of breath with exertion Gastrointestinal - see above Neurological: denies seizures Kidneys - has chronic kidney disease Musculoskeletal - has bad knees PHYSICAL EXAMINATION: ? BP 142/62 Pulse 88 Temp 98.5 ?F Resp 16 Wt 120 lb General: APPEARANCE Well appearing, alert, in no acute distress, well-hydrated, well nourished. Neck supple with no JVD, trachea midline Eyes - wearing glasses, sclera clear Lungs clear to auscultation, no rhonchi/wheezing noted Heart sounds - regular Abdomen - soft and benign, normal bowel sounds EXTREMITIES mild lower dependent swelling bilaterally. IMPRESSION: History of duodenal ulcer with bleeding PLAN: Patient has no symptoms. More than likely, presentation of bleeding duodenal ulcer is due to her use of excedrin prior. I have recommended that she avoid aspirin use. Follow up as per needed. Referring Provider: SELF [[id number]] Allergies As of Date: 09/07/2018 Noted Allergy Reaction ACCUPRIL (QUINAPRIL HCL) 04/14/2005 2 - Rash ARTHROTEC 50 (DICLOFENAC-MISOPROS*04/14/2005 8 - GI Upset FOSAMAX (ALENDRONATE SODIUM) 01/31/2007 5 - Intolerance Comments: MUSCLE WEAKNESS LIPITOR (ATORVASTATIN CALCIUM) 06/29/2012 14 - Other: See Comments Comments: Muscle achiness MACRODANTIN (NITROFURANTOIN) 04/14/2005 2 - Rash PERCOCET (OXYCODONE-ACETAMINOPHEN)04/14/2005 5 - Intolerance Comments: off balance, elevated blood pressure MQGEZOQ-SOZ-OEO REDUCTASE INHIBIT*08/30/2015 17 - Myalgia Date Reviewed: 09/07/2018 Reviewed by: Nubia Ervin LPN - Fully Assessed Reason for Visit: Hospital Follow Up [177] Primary Visit Diagnosis:Duodenal ulcer with hemorrhage [K26.4] Prescriptions as of 09/07/2018 Sig: X TRAZODONE 50 MG TABLET Take 0.5 tablets by mouth alley* DENOSUMAB 60 MG/ML SUBCUTANEO* Inject 1 mL subcutaneously on* X LORAZEPAM 0.5 MG TABLET Take 1 tablet [...] EVERY * X SPIRONOLACTONE 25 MG TABLET TAKE 1 TABLET BY MOUTH DAILY GABAPENTIN 100 MG CAPSULE Take 1 capsule by mouth twice* FUROSEMIDE 20 MG TABLET Take 1 tablet by mouth once d* MELOXICAM 15 MG TABLET Take 1 tablet by mouth once d* X FVKDRFW-RESLGRZRIIDMF-VLFFLOV* Take 1 tablet by mouth every * X CARVEDILOL 25 MG TABLET TAKE 1 TABLET BY MOUTH TWICE * NITROGLYCERIN 0.4 MG SUBLINGU* Dissolve 1 tablet under the t* OTC PRODUCT Vitamin D 1000 mg daily. Problem List As Of Date 09/07/2018 Noted Resolved BENIGN HYPERTENSION [I10] INVALID FOR* Acquired hypothyroidism [E03.9] INVALID FOR* Osteoporosis [M81.0] INVALID FOR* MALIGN NEOPL BREAST NOS [...] (HCC) [I73.9] INVALID FOR* Encounter Status:Closed by MD CIERA BAZAN on 09/10/18 PROGRESS Observed: 09/07/2018 Status: COMPLETED Source: [place] 11:54 AM [facility] HNO ID: [id number] Author: Zachary Neal V Service: (none) Author Type: Physician Type: Progress Notes Filed: 09/07/2018 11:56 AM Note Text: Patient presents with: Established Patient: 8 months post series of Euflexxa injections bilateral knees Diagnosis:Bilateral knees osteoarthritis History: Li returns for first Euflexxa injection into the bilateral knee. Past medical history, family history, social history, and review of systems are unchanged from initial visit and reviewed by me today. Physical Examination: Skin: Intact to inspection and palpation. Musculoskeletal Exam: Bilateral Knee Exam: Unchanged from previous visit. Impression: Bilateral knees osteoarthritis. Procedure: Euflexxa injection into bilateral knee. After obtaining written and verbal informed consent, I prepped the bilateral knee [...] sensory changes. Zachary Neal DO PROGRESS Observed: 09/07/2018 Status: COMPLETED Source: [place] 11:04 AM [facility] HNO ID: [id number] Author: Ciera Kirby Ma Service: (none) Author Type: (none) Type: Progress Notes Filed: 09/07/2018 11:56 AM Note Text: Patient presents with: Established Patient: 8 months post series of Euflexxa injections bilateral knees AMB ROOMING INTAKE FLOWSHEET DATA Risk Screening Do you have concerns about personal safety or safety in the home?: No Pain Pain Score: 10/10 Pain Location: (bilateral knees) Duration Amount of Time: (Ongoing ) Frequency: Continuous Patient states she is having pain in both knees. States her right medial knee is the most painful. Patient just got released from the hospital on Wednesday after being there for 5 weeks. Daughter Treecie with patient today. Taking Gabapentin for her pain. Euflexxa injection #1 bilateral knees Lot # [id number] Exp. 05/08/2019. CNOV Observed: 09/07/2018 Status: COMPLETED Source: [place] 11:00 AM [facility] Office Visit () LI GRIFFITH ([id number]) 1935 F NFR Date Time Provider Department 09/07/18 11:00 AM AZCHARY NEAL V During your visit today, we recorded the following information about you: Ciera Kirby Ma 09/07/2018 11:56 AM Signed Patient presents with: Established Patient: 8 months post series of Euflexxa injections bilateral knees AMB ROOMING INTAKE FLOWSHEET DATA Risk Screening Do you have concerns about personal safety or safety in the home?: No Pain Pain Score: 10/10 Pain Location: (bilateral knees) Duration Amount of Time: (Ongoing ) Frequency: Continuous Patient states she is having pain in both knees. States her right medial knee is the most painful. Patient just got released from the hospital on Wednesday after being there for 5 weeks. Daughter Treecie with patient today. Taking Gabapentin for her pain. Euflexxa injection #1 bilateral knees Lot # [id number] Exp. 05/08/2019. Zachary Neal DO 09/07/2018 11:56 AM Signed Patient presents with: Established Patient: 8 months post series of Euflexxa injections bilateral knees Diagnosis:Bilateral knees osteoarthritis History: Li returns for first Euflexxa injection into the bilateral knee. Past medical history, family history, social history, and review of systems are unchanged from initial visit and reviewed by me today. Physical Examination: Skin: Intact to inspection and palpation. Musculoskeletal Exam: Bilateral Knee Exam: Unchanged from previous visit. Impression: Bilateral knees osteoarthritis. Procedure: Euflexxa injection into bilateral knee. After obtaining written and verbal informed consent, I prepped the bilateral knee [...] Neal DO Referring Provider: ZACHARY NEAL V [[id number]] Allergies As of Date: 09/07/2018 Noted Allergy Reaction ACCUPRIL (QUINAPRIL HCL) 04/14/2005 2 - Rash ARTHROTEC 50 (DICLOFENAC-MISOPROS*04/14/2005 8 - GI Upset FOSAMAX (ALENDRONATE SODIUM) 01/31/2007 5 - Intolerance Comments: MUSCLE WEAKNESS LIPITOR (ATORVASTATIN CALCIUM) 06/29/2012 14 - Other: See Comments Comments: Muscle achiness MACRODANTIN (NITROFURANTOIN) 04/14/2005 2 - Rash PERCOCET (OXYCODONE-ACETAMINOPHEN)04/14/2005 5 - Intolerance Comments: off balance, elevated blood pressure [id number] REDUCTASE INHIBIT*08/30/2015 17 - Myalgia Date Reviewed: 09/07/2018 Reviewed by: Ciera Kirby Ma - Fully Assessed Reason for Visit: Established Patient [175] Cmt: 8 months post series of Euflexxa injections bilateral knees Primary Visit Diagnosis:Primary osteoarthritis of both knees [M17.0] Order(s):[] sodium hyaluronate 40 mg injection (EUFLEXXA)Disp: Rfl: Prescriptions as of 09/07/2018 Sig: TRAZODONE 50 MG TABLET Take 0.5 tablets by mouth alley* DENOSUMAB 60 MG/ML SUBCUTANEO* Inject 1 mL subcutaneously on* DIGOXIN 125 MCG TABLET TAKE 1 TABLET [...] TABLET TAKE 1 TABLET BY MOUTH DAILY FUROSEMIDE 20 MG TABLET Take 1 tablet by mouth once d* MELOXICAM 15 MG TABLET Take 1 tablet by mouth once d* CARVEDILOL 25 MG TABLET TAKE 1 TABLET BY MOUTH TWICE * NITROGLYCERIN 0.4 MG SUBLINGU* Dissolve 1 tablet under the t* OTC PRODUCT Vitamin D 1000 mg daily. LORAZEPAM 0.5 MG TABLET Take 1 tablet by mouth at bed* GABAPENTIN 100 MG CAPSULE Take 1 capsule by mouth twice* [id number]-[id number]-JQPDTBK* Take 1 tablet by mouth every * Problem List As Of Date 09/07/2018 Noted Resolved BENIGN HYPERTENSION [I10] INVALID FOR* Acquired hypothyroidism [E03.9] INVALID FOR* Osteoporosis [M81.0] INVALID FOR* MALIGN NEOPL BREAST NOS [...] (peripheral artery disease) (HCC) [I73.9] INVALID FOR* Prescriptions ordered this encounter Disp Refills Start End SODIUM HYALURONATE 10 MG/ML(MW 2.4-3* 09/07/2018 09/07/2018 Route: [facility] Encounter Status:Closed by ZACHARY NEAL DO, V on 09/07/18 OBSOLETE Observed: 09/06/2018 Status: COMPLETED Source: [place] 12:00 AM [facility] LI GRIFFITH ([id number]) 1935 F NFR Date Time Provider Department 09/06/18 MARIAA MG III [facility] During your visit today, we recorded the following information about you: Louise Grover 09/06/2018 8:23 AM Signed Patient has been identified by name and date of : Yes Pending Prescriptions Disp Refills LORAZEPAM 0.5 MG TABLET 30 tablet 0 Sig: Take 1 tablet by mouth at bedtime as needed for up to 30 days. TATA Class: C-IV GABINO: No RX INSTRUCTIONS: Patient aware RX will be sent to pharmacy. No need to notify patient. Louise Miller Psr Francesca Frances MA, MA 09/06/2018 9:26 AM Signed Patient has been identified by name and date of : Yes Patient phones for refill(s): Pending Prescriptions Disp Refills LORAZEPAM 0.5 MG TABLET 30 tablet 0 Sig: Take 1 tablet by mouth at bedtime as needed for up to 30 days. TATA Class: C-IV GABINO: No Last Refill:08/02/18 Qty:30 Refills:0 Next Scheduled Office Visit:09/08/18 Last Office Visit:05/12/18 JACKY Bang III MD 09/06/2018 6:58 PM Signed PDMP website checked and validated. All prescriptions have been APPROPRIATELY filled. No suspicious activity was identified. 09/06/2018 by Mariaa Mg III MD Since patient has recently been placed on tramadol by Dr. Arteaga, pain management, and we do not want to mix lorazepam with a narcotic, I will switch her sleep medication from lorazepam to trazodone 25 mg at bedtime. This is not a controlled drug and should not adversely interact with tramadol. Mariaa Mg III, MD, FAAFP Eda Cordero LPN 09/07/2018 2:21 PM Signed Pt's daughter Krystin notified of medication change AND that new Rx was sent to pharmacy. She states understanding. Eda Cordero LPN Allergies As of Date: 09/06/2018 Noted Allergy Reaction ACCUPRIL (QUINAPRIL HCL) 04/14/2005 2 - Rash ARTHROTEC 50 (DICLOFENAC-MISOPROS*04/14/2005 8 - GI Upset FOSAMAX (ALENDRONATE SODIUM) 01/31/2007 5 - Intolerance Comments: MUSCLE WEAKNESS LIPITOR (ATORVASTATIN CALCIUM) 06/29/2012 14 - Other: See Comments Comments: Muscle achiness MACRODANTIN (NITROFURANTOIN) 04/14/2005 2 - Rash PERCOCET (OXYCODONE-ACETAMINOPHEN)04/14/2005 5 - Intolerance Comments: off balance, elevated blood pressure FYEESMQ-WKB-GGU REDUCTASE INHIBIT*08/30/2015 17 - Myalgia Date Reviewed: 05/12/2018 Reviewed by: Caterina Lara LPN - Fully Assessed Reason for Visit: Refill Request [94] Reason For Visit History Recorded Primary Visit Diagnosis:Chronic anxiety [F41.9] Other Visit Diagnosis:Chronic insomnia [F51.04] Order(s):traZODone (DESYREL) 50 mg tabletTake 0.5 tablets by mouth daily at bedtime.Disp: 15 tabletRfl: 5 Prescriptions as of 09/06/2018 Sig: TRAZODONE 50 MG TABLET Take 0.5 tablets by mouth alley* DENOSUMAB 60 MG/ML SUBCUTANEO* Inject 1 mL subcutaneously on* LORAZEPAM 0.5 MG TABLET Take 1 tablet [...] CAPSULE Take 1 capsule by mouth twice* FUROSEMIDE 20 MG TABLET Take 1 tablet by mouth once d* MELOXICAM 15 MG TABLET Take 1 tablet by mouth once d* [id number]-WBCDVADYSJWKN-MPUNJQP* Take 1 tablet by mouth every * CARVEDILOL 25 MG TABLET TAKE 1 TABLET BY MOUTH TWICE * NITROGLYCERIN 0.4 MG SUBLINGU* Dissolve 1 tablet under the t* OTC PRODUCT Vitamin D 1000 mg daily. Problem List As Of Date 09/06/2018 Noted Resolved BENIGN HYPERTENSION [I10] INVALID FOR* Acquired hypothyroidism [E03.9] INVALID FOR* Osteoporosis [M81.0] INVALID FOR* MALIGN NEOPL BREAST NOS [...] [D35.1] INVALID FOR* PAD (peripheral artery disease) ([facility]) [I73.9] INVALID FOR* Prescriptions ordered this encounter Disp Refills Start End TRAZODONE 50 MG TABLET 15 t* 5 09/06/2018 Route: ORAL Sig: Take 0.5 tablets by mouth daily at bedtime. Encounter Status:Closed by EDA CORDERO LPN on 09/07/18 BASIC METABOLIC Collected: 09/04/2018 Status: F Source: [place] PROFILE (BMP) 6:46 AM [facility] TYPE CODE TESTS RESULT OUT OF RANGE REFERENCE UNITS LAB L501.0100 74-106 mg/dL Normal GLU 100 Result Comment: Fasting Glucose result from 100 to 125 mg/dL suggests IMPAIRED HOMEOSTASIS per A.D.A. criteria. Please note revised GLUCOSE reference range effective 2017. LAB L501.1000 7-18 mg/dL High BUN 35 LAB L501.1100 0.55-1.02 mg/dL High CREAT,SERUM 1.13 Result Comment: The validity of the calculated GFR AND GFRAA in patients over 70 years has not been determined. Clinical correlation is essential. LAB L501.1110 >60 mL/min Low EST GFR 49 Result Comment: Non- GFR Calc LAB L501.1115 >60 mL/min Low EST GFR - AA 59 Result Comment: GFR Calc LAB L501.1255 ml/min Normal Estimated CRCL 30.88 LAB L501.1300 10-20 RATIO High BUN/CRE 31.0 LAB L501.2200 8.5-10 mg/dL Normal .1 CA 9.9 LAB L501.5300 136-14 mmol/L Normal 5 NA 143 LAB L501.5600 3.5-5. mmol/L Normal 1 K 3.8 LAB L501.5900 98-107 mmol/L Normal CL 106 LAB L501.6100 21.0-3 mmol/L Normal 2.0 CO2 28.0 LAB L501.6200 5-15 Normal GAP 9 Performed By: #### L500.2500 #### [facility] [address] [place], [address] CBC W/DIFF, AUTOMATED Collected: 09/04/2018 Status: F Source: [place] 6:46 AM [facility] TYPE CODE TESTS RESULT OUT OF RANGE REFERENCE UNITS LAB L100.1000 4.4-11.0 K/mm3 Normal WBC 6.3 LAB L100.1200 4.2-5.4 M/mm3 Low RBC 3.77 LAB L100.1300 12.0-15.0 g/dl Low HGB 11.5 LAB L100.1400 37-47 % Normal HCT 37.2 LAB L100.1500 81-99 fL Normal MCV 98.7 LAB L100.1600 27.0-32.0 pg Normal MCH 30.5 LAB L100.1700 32-36 g/gl Low MCHC 30.9 LAB L100.1810 11.6-14.6 % High RDW CV 16.4 LAB L100.1820 35.1-43.9 fl High RDW SD 57.6 LAB L100.1900 150-450 K/mm3 Normal PLT 211 LAB L100.2000 6.2-12.0 fl Normal MPV 10.5 LAB L100.2100 47-70 % Normal NEUT% 56.9 LAB L100.2200 19-41 % Normal LY% 29.2 LAB L100.2300 0-10 % Normal MONO% 7.8 LAB L100.2400 0-5 % Normal EO% 4.6 LAB L100.2500 0-1 % Normal BASO% 0.5 LAB L100.2550 0.0-0.9 % High IM GRAN % 1.000 Result Comment: IG% - Immature Granulocytes (promyelocytes, myelocytes and metamyelocytes) > 1% indicates that a LEFT SHIFT is Present. LAB L100.2620 2.0-7.7 X10 3/uL Normal Absolute Neut 3.6 LAB L100.2720 0.83-4.51 X10 3/ul Normal Absolute Lymph 1.84 Performed By: #### L100.0100 #### [facility] [address] [place], [place], [address] HOME HEALTH PROGRESS Observed: 09/02/2018 Status: F Source: [place]ZZ[place] NOTE 2:19 PM [facility] Medical Records Department [address] [place] [address] Home Health Progress Note Uvow-bq-Drgk Encounter Encounter Date: 09/02/18 1418 MR#: [id number] Acct: [id number] Name: LI GRIFFITH Rep #: [id number] : 1935 82 From: Juvenal Barber MD PCP: Mariaa Mg III, MD Status: ADM IN Location: [place] [address] Home Health Note - Plan Overview of reason of hospitalization: The patient is a 82 year old Female with below past medical history hospitalized for acute Upper GI bleed requiring 3 units PRBC transfusion, complicated by gout exacerbation, acute on chronic kidney failure, admitted to TCU with debility, here for rehabilitation, strengthening, prior to discharge home with spouse. On TCU, resident was started on Entresto titration for treatment of chronic systolic heart failure, consider titrating Entresto to 97/103MG BID to decrease risk of , hospitalization from heart failure. Resident also developed RSV B bronchitis, treated with antibiotics, steroids, aerosols, improved. Discharge home with spouse, and Home Health Services. Problems: Patient was seen for (Last Reviewed 08/03/18 @ 07:33 by Messi Hendricks MD) Gout (Acute) Acute on chronic kidney failure (Acute) Goiter (Chronic) Hyperlipidemia (Chronic) Anxiety (Chronic) Complete List of Medical Problems (Last Reviewed 08/03/18 @ 07:33 by Messi Hendricks MD) Hypothyroidism (Chronic) Cardiomyopathy (Chronic) Acute upper GI bleed (Acute) Hypertension (Chronic) Parathyroid adenoma (Chronic) History of breast cancer (Chronic) History of left mastectomy (Chronic) Chronic renal failure, stage 4 (severe) (Chronic) Acute gouty arthritis (Acute) Hyperuricemia (Chronic) Acute systolic (congestive) heart failure (Acute) Osteoporosis (Chronic) Gout (Acute) Acute on chronic kidney failure (Acute) Goiter (Chronic) Hyperlipidemia (Chronic) Anxiety (Chronic) Hyperparathyroidism (Acute) Acute blood loss anemia (Acute) Arrhythmia (Chronic) COPD (chronic obstructive pulmonary disease) (Chronic) Coronary artery disease (Chronic) Peripheral vascular disease (Chronic) - Requirements and Reasons Disciplines Needed/Ordered: Physical Therapy Reason for Disciplines: Gait Training, Stair Training, Fall Prevention, Home Safety/Equipment Instruction, Balance and/or Posture Training, Transfer Training Related To: Limited/Poor Endurance, Shortness of Breath with Activity, Physical Impairments, Unsteady Gait/Balance, Fall Risk Patient is unable to leave the home: Without Aid of Supportive Devices (crutches, cane, wheelchair, walker), Without the assistance of another person - Additional Disciplines Additional Disciplines Needed/Ordered: Occupational Therapy 09/02/181418 <Electronically signed by Juvenal Barber MD> Date Juvenal Barber MD Cosigner Signature (if indicated): Date CC: Signed DISCHARGE SUMMARY Observed: 09/02/2018 Status: F Source: [place] 2:18 PM [facility] Medical Records Department [address] [place] [address] [place] [address] Discharge Summary 09/02/181414 MR#: [id number] Acct: [id number] Name: LI GRIFFITH Rep #: [id number] : 1935 82 From: Juvenal Barber MD PCP: Mariaa Mg III, MD Status: ADM IN Location: [place] [address] Discharge Date and Diagnosis - Problem List Patient Problems: Active and Suspected Problems (Last Reviewed 08/03/18 @ 07:33 by Messi Hendricks MD) Gout (Acute) Acute on chronic kidney failure (Acute) Date of Admission: 08/13/18 Date of Discharge: 09/04/18 - Primary Discharge Diagnosis Active and Suspected Problems (Last Reviewed 08/03/18 @ 07:33 by Messi Hendricks MD) Gout (Acute) Acute on chronic kidney failure (Acute) - Secondary Discharge Diagnosis Chronic Problems (Last Reviewed 08/03/18 @ 07:33 by Messi Hendricks MD) Hypothyroidism (Chronic) Cardiomyopathy (Chronic) 35% Hypertension (Chronic) Parathyroid adenoma (Chronic) History of breast cancer (Chronic) History of left mastectomy (Chronic) Chronic renal failure, stage 4 (severe) (Chronic) Hyperuricemia (Chronic) Osteoporosis (Chronic) Goiter (Chronic) Hyperlipidemia (Chronic) Anxiety (Chronic) Arrhythmia (Chronic) COPD (chronic obstructive pulmonary disease) (Chronic) Coronary artery disease (Chronic) Peripheral vascular disease (Chronic) severe Hospital Course and Treatment Imaging Results: 08/17/18 14:37 Diet: Cardiac/Low Cholesterol Dietary Modifications:: Low Purine Diet Is pt able to select menu?: Yes Diet Comments: low cholesterol, low sodium Clinical Impression(s) from Imaging Studies Chest X-Ray 08/24/18 17:59 IMPRESSION: COPD and cardiomegaly without evidence of acute cardiopulmonary disease. Electronically Signed: Tonia Vazquez MD at 5:16 EST , Service support , Operations: None Procedures: None Summary of Care Provided: The patient is a 82 year old Female with below past medical history hospitalized for acute Upper GI bleed requiring 3 units PRBC transfusion, complicated by gout exacerbation, acute on chronic kidney failure, admitted to TCU with debility, here for rehabilitation, strengthening, prior to discharge home with spouse. On TCU, resident was started on Entresto titration for treatment of chronic systolic heart failure, consider titrating Entresto to 97/103MG BID to decrease risk of , hospitalization from heart failure. Resident also developed RSV B bronchitis, treated with antibiotics, steroids, aerosols, improved. Discharge home with spouse, and Home Health Services. Patient Problems: Active and Suspected Problems (Last Reviewed 08/03/18 @ 07:33 by eMssi Hendricks MD) Gout (Acute) Acute on chronic kidney failure (Acute) - Physical Exam Vital Signs Temp Pulse Resp BP Pulse Ox 98.6 F 77 21 H 115/52 L 94 09/01/18 15:16 09/02/18 14:03 09/02/18 14:03 09/01/18 15:16 09/02/18 10:00 Oxygen Flow Rate (L/min) 1 Oxygen Delivery Method Room Air Weight: 52.673 kg Body Mass Index (BMI) 21.9 Intake and Output for Last 24 Hours Intake Total 720 / 720 1180 / 1180 560 / 560 Balance 720 / 720 1180 / 1180 560 / 560 Discharge Diet: No Restrictions Discharge Activity: Return to Normal Activity, May Shower, Use Walker Weight Bearing Status: Weight bearing as tolerated Call your doctor if you observe: Fever of 101 or Higher, Inability to urinate, Inability to have a bowel movement, Shortness of breath, Chest pain, Uncontrolled pain Home Medications: Medications to take at Discharge Clopidogrel Bisulfate [Plavix] 75 mg PO DAILY 12/15/16 Levothyroxine [Synthroid] 100 mcg PO DAILY 07/08/17 Lorazepam [Ativan] 0.5 mg PO QHS PRN PRN 07/08/17 Nitroglycerin [Nitrostat] 0.4 mg SL PRN PRN 07/08/17 Cholecalciferol (VIT D3) [Vitamin D3] 2,000 unit PO DAILY 08/03/18 Acetaminophen [Tylenol] 1,000 mg PO Q6H PRN tablet 09/02/18 Carvedilol [Coreg (Beta Sonya)] 12.5 mg PO BID #60 tablet 09/02/18 Colchicine 0.6 mg PO DAILYCM #30 tablet 09/02/18 Furosemide [Lasix] 20 mg PO 1200 tablet 09/02/18 Gabapentin [Neurontin] 100 mg PO BIDCM #60 capsule 09/02/18 Guaifenesin Dm [Robitussin Dm] 10 ml PO Q6H PRN PRN udc 09/02/18 Ipratropium/Albuterol Sulfate [Duoneb] 3 ml INHALATION Q6HWA.RT #100 ampul.neb 09/02/18 Pantoprazole Sodium [Protonix] 40 mg PO BID #60 tablet 09/02/18 Sacubitril/Valsartan 49-51 mg [Entresto 49 mg-51 mg Tablet] 1 each PO BID #60 tablet 09/02/18 Senna/Docusate Sodium [Senokot-S] 1 tablet PO BID #60 tablet 09/02/18 traMADol [Ultram] 50 mg PO TID PRN PRN #30 tab 09/02/18 Following Prescrptions Were Given to Patient: Ipratropium/Albuterol Sulfate [Duoneb] 3 ml INHALATION Q6HWA.RT #100 ampul.neb Colchicine 0.6 mg PO DAILYCM #30 tablet traMADol [Ultram] 50 mg PO TID PRN PRN #30 tab PRN Reason: Moderate Pain (4-5/10) Carvedilol [Coreg (Beta Sonya)] 12.5 mg PO BID #60 tablet Gabapentin [Neurontin] 100 mg PO BIDCM #60 capsule Pantoprazole Sodium [Protonix] 40 mg PO BID #60 tablet Sacubitril/Valsartan 49-51 mg [Entresto 49 mg-51 mg Tablet] 1 each PO BID #60 tablet Senna/Docusate Sodium [Senokot-S] 1 tablet PO BID #60 tablet Primary Care Physician: Mariaa Mg III, MD [Primary Care Provider] - Please follow up with your Primary Care Physician in: 1 week. Please Follow Up With: Mariaa Mg III, MD When: 1-2 weeks after discharge Please Follow Up With: Tristen Shaikh MD When: after discharge Please Follow Up With: Michelle Hull DO When: after discharge Please Follow Up With: Dr. Светлана DDS When: after discharge Disposition: Home with Home Health Minutes spent on discharge:: 35 Patient Condition:: Stable Medical Necessity - Tobacco Use Smoking Status: Never smoker Tobacco Use: Non-smoker Meaningful Use Info Meaningful Use Diagnoses (Choose all that apply): None applicable 09/02/181417 <Electronically signed by Juvenal Barber MD> Date Juvenal Barber MD Cosigner Signature (if applicable): Date CC: Mariaa Mg III, MD; Juvenal Barber MD Signed DISCHARGE INSTRUCTION Observed: 09/02/2018 Status: F Source: [place] 2:15 PM [facility] [facility] Medical Records Department [address] [place] [address] Instructions for Home/Discharge Instructions 09/02/181413 MR#: [id number] Acct: [id number] Name: LI GRIFFITH Rep #: [id number] : 1935 82 From: Juvenal Barber MD PCP: Mariaa Mg III, MD Status: ADM IN - Discharge Diagnoses Current Active Problems: Current Active and Chronic Problems (Last Reviewed 08/03/18 @ 07:33 by Messi Hendricks MD) Gout (Acute) Acute on chronic kidney failure (Acute) Goiter (Chronic) Hyperlipidemia (Chronic) Anxiety (Chronic) You will use the following diet at home:: No restrictions, Regular Your food should be the consistency of: Regular Your liquids should be the consistency of: Regular/Thin Discharge Activity: Return to Normal Activity, May Shower, Use Walker Weight Bearing Status: Weight bearing as tolerated Call your doctor if you observe: Fever of 101 or Higher, Inability to urinate, Inability to have a bowel movement, Shortness of breath, Chest pain, Uncontrolled pain Allergies/Adverse Reactions: Allergies alendronate sodium [From Fosamax] Allergy (Verified 08/03/18 [...] Adverse Reaction (Verified 08/03/18 02:29) Upset Stomach Medications to take at Discharge Clopidogrel Bisulfate [Plavix] 75 mg PO DAILY 12/15/16 Levothyroxine [Synthroid] 100 mcg PO DAILY 07/08/17 Lorazepam [Ativan] 0.5 mg PO QHS PRN PRN 07/08/17 Nitroglycerin [Nitrostat] 0.4 mg SL PRN PRN 07/08/17 Cholecalciferol (VIT D3) [Vitamin D3] 2,000 unit PO DAILY 08/03/18 Acetaminophen [Tylenol] 1,000 mg PO Q6H PRN tablet 09/02/18 Carvedilol [Coreg (Beta Sonya)] 12.5 mg PO BID #60 tablet 09/02/18 Colchicine 0.6 mg PO DAILYCM #30 tablet 09/02/18 Furosemide [Lasix] 20 mg PO 1200 tablet 09/02/18 Gabapentin [Neurontin] 100 mg PO BIDCM #60 capsule 09/02/18 Guaifenesin Dm [Robitussin Dm] 10 ml PO Q6H PRN PRN udc 09/02/18 Ipratropium/Albuterol Sulfate [Duoneb] 3 ml INHALATION Q6HWA.RT #100 ampul.neb 09/02/18 Pantoprazole Sodium [Protonix] 40 mg PO BID #60 tablet 09/02/18 Sacubitril/Valsartan 49-51 mg [Entresto 49 mg-51 mg Tablet] 1 each PO BID #60 tablet 09/02/18 Senna/Docusate Sodium [Senokot-S] 1 tablet PO BID #60 tablet 09/02/18 traMADol [Ultram] 50 mg PO TID PRN PRN #30 tab 09/02/18 The following prescriptions were given: Ipratropium/Albuterol Sulfate [Duoneb] 3 ml INHALATION Q6HWA.RT #100 ampul.neb Colchicine 0.6 mg PO DAILYCM #30 tablet traMADol [Ultram] 50 mg PO TID PRN PRN #30 tab PRN Reason: Moderate Pain (4-5/10) Carvedilol [Coreg (Beta Sonya)] 12.5 mg PO BID #60 tablet Gabapentin [Neurontin] 100 mg PO BIDCM #60 capsule Pantoprazole Sodium [Protonix] 40 mg PO BID #60 tablet Sacubitril/Valsartan 49-51 mg [Entresto 49 mg-51 mg Tablet] 1 each PO BID #60 tablet Senna/Docusate Sodium [Senokot-S] 1 tablet PO BID #60 tablet Primary Care Physician: Mariaa Mg III, MD [Primary Care Provider] - Please follow up with your Primary Care Physician in: 1 week. Test Results: Test results from this visit will be discussed in further detail at your follow-up appointment, if applicable. Please Follow Up With: Mariaa Mg III, MD When: 1-2 weeks after discharge Please Follow Up With: Tristen Shaikh MD When: after discharge Please Follow Up With: Michelle Hull DO When: after discharge Please Follow Up With: Dr. Светлана DDS When: after discharge Proposed Discharge Date: 09/04/18 09/02/18 1415 <Electronically signed by Juvenal Barber MD> Date Juvenal Barber MD CC: Mariaa Mg III, MD Signed 12 LEAD ELECTROCARDIOGRAM Observed: 09/01/2018 Status: F Source: [place] 11:13 AM [facility] [facility] Cardiovascular Services [address] [place] [address] 12 Lead EKG 08/23/182019 MR#: [id number] Acct: [id number] Name: LI GRIFFITH Rep #: [id number] : 1935 82 From: Que Harmon MD Attending Dr: Sunil YOU,Juvenal Larsen Status: ADM IN Ordering Dr: Juvenal Barber MD Date: 08/23/18 Location: [facility] Sex: F C Admitted: 08/13/18 Test Reason : CHEST PAIN Blood Pressure : / mmHG Vent. Rate : 071 BPM Atrial Rate : 071 BPM P-R Int : 180 ms QRS Dur : 158 ms QT Int : 438 ms P-R-T Axes : 051 -74 090 degrees QTc Int : 475 ms Electronic ventricular pacemaker Confirmed by GILBERT YOU, QUE ([id number]), editor book MARIBEL VAZQUEZ ([id number]) on 09/01/2018 11:12:51 AM Referred By: SUNIL Confirmed By:QUE HARMON MD 09/01/18 1112 Date Que Harmon MD CC: Mariaa Mg III, MD; Juvenal Barber MD Signed CBC W/DIFF, AUTOMATED Collected: 08/28/2018 Status: F Source: [place] 6:44 AM [facility] TYPE CODE TESTS RESULT OUT OF RANGE REFERENCE UNITS LAB L100.1000 4.4-11.0 K/mm3 Normal WBC 4.4 LAB L100.1200 4.2-5.4 M/mm3 Low RBC 3.55 LAB L100.1300 12.0-15.0 g/dl Low HGB 10.7 LAB L100.1400 37-47 % Low HCT 35.0 LAB L100.1500 81-99 fL Normal MCV 98.6 LAB L100.1600 27.0-32.0 pg Normal MCH 30.1 LAB L100.1700 32-36 g/gl Low MCHC 30.6 LAB L100.1810 11.6-14.6 % High RDW CV 16.2 LAB L100.1820 35.1-43.9 fl High RDW SD 57.4 LAB L100.1900 150-450 K/mm3 Normal PLT 249 LAB L100.2000 6.2-12.0 fl Normal MPV 10.2 LAB L100.2100 47-70 % Normal NEUT% 54.3 LAB L100.2200 19-41 % Normal LY% 28.0 LAB L100.2300 0-10 % High MONO% 15.4 LAB L100.2400 0-5 % Normal EO% 1.6 LAB L100.2500 0-1 % Normal BASO% 0.5 LAB L100.2550 0.0-0.9 % Normal IM GRAN % 0.200 Result Comment: IG% - Immature Granulocytes (promyelocytes, myelocytes and metamyelocytes) > 1% indicates that a LEFT SHIFT is Present. LAB L100.2620 2.0-7.7 X10 3/uL Normal Absolute Neut 2.4 LAB L100.2720 0.83-4.51 X10 3/ul Normal Absolute Lymph 1.22 Performed By: #### L100.0100 #### [facility] [address] [place], [address] Observed: 08/26/2018 Status: F Source: [place] CULTURE, SPUTUM 5:30 PM [facility] Order Date: 08/26/18 List Antibiotics Last 48 Hours? ceftin Gram Stain Acceptable Specimen? Yes (<25 Epithelial cells per/lpf) Gram Stain 2+ Gram positive cocci 1+ White Blood Cells Very Rare Epithelial cells 1+ Gram positive rods Resp. Culture Mixed normal respiratory jeison. No Haemophilus, Streptococcus pneumoniae, beta-hemolytic Streptococcus or Staphylococcus aureus isolated. Performed By: #### M100.0800 #### [facility] [address] [place], [address] CHEST 1 VIEW Observed: 08/24/2018 Status: F Source: [place] (PORTABLE) 6:02 PM [facility] REPOSIT[facility] Imaging Services [address] [place] [address] Chest 1 View (Portable) MR#: [id number] Acct: [id number] Name: LI GRIFFITH Rep #: [id number] : 1935 F 82 From: Tonia Vazquez MD PCP: Mariaa Mg III, MD Status: ADM IN Study: Chest 1 View (Portable) Date of Exam: 08/24/18 Exam# [id number] Ordering Dr: Juvenal Barber MD STUDY: X-RAY CHEST REASON FOR EXAM: Female, 82 years old. Cough. TECHNIQUE: Single AP portable view of the chest. COMPARISON: August 08, 2018. FINDINGS: Patient has had a sternotomy. Left-sided intracardiac pacemaker is present. There is hyperinflation of the lungs consistent with chronic obstructive lung disease (COPD). There is no demonstrated pleural abnormality. There is mild cardiac enlargement. Normal mediastinum and advi. There is prominence of the pulmonary hilar arteries without peripheral pulmonary vascular congestion. There is atherosclerotic calcification of the aortic arch with tortuosity. There is demineralization of the osseous structures. The patient has had previous right-sided shoulder surgery. Surgical clips are visible in the right axilla. There is no demonstrated abnormality of the visualized soft tissue structures of the upper abdomen. RAD/Chest 1 View (Portable) IMPRESSION: COPD and cardiomegaly without evidence of acute cardiopulmonary disease. Electronically Signed: Tonia Vazquez MD at 5:16 EST , Service support , CC: Mariaa Mg III, MD; Juvenal Barber MD [employer] Consultant: Signed QUANTIFERON TB-GOLD+ Collected: 08/24/2018 Status: F Source: [place] 9:08 AM [facility] [place] TYPE CODE TESTS RESULT OUT OF RANGE REFERENCE UNITS LAB L3400.8025 . Normal QFT TB Comment GOLD Result Comment: The QuantiFERON-TB Gold Plus result is determined by subtracting the Nil value from either TB antigen (Ag) tube. The mitogen tube serves as a control for the test. LAB L3400.8035 . IU/mL Normal QFT TB1+ AG 0.31 MALU LAB L3400.8045 . IU/mL Normal QFT TB2+ AG 0.31 MALU LAB L3400.8055 . IU/mL Normal QFT NIL VALUE 0.27 LAB L3400.8065 . IU/mL Normal QFT MITOGEN > 10.00 MALU LAB L3400.8075 Negative Normal QFT TB POS Negative CRIT Result Comment: The specimen received for QuantiFERON testing was incubated by the ordering institution. Specific procedures outlined in our Directory of Services and in the package insert for the QuantiFERON Gold (In Tube) test must be followed to enable for proper stimulation of cells for the production of interferon gamma. Performed at: [facility] [address] [id number] Safety Companion: Alec Hernandez PhD, Phone: [phone] Performed By: #### L3400.8000 #### [facility] (refer to report for specific site) refer to report for address and phone number Observed: 08/23/2018 Status: F Source: [place] RESPIRATORY PANEL 6:00 AM [facility] RP PANEL Copy of report sent to Infection Control Printer [id number] 08/23/18 Heike PETTY. RESULTS CALLED TO Felipe LEON 08/23/18 1325 Yesenia Martino. REPORT READ BACK BY ANA. Normal Reference Range = Not Detected ADENOVIRUS Not Detected HUMAN METAPHNEUMO Not Detected INFLUENZA A Not Detected INFLUENZA A (SUBTYPE H1) Not Detected INFLUENZA A (SUBTYPE H3) Not Detected INFLUENZA B Not Detected PARAINFLUENZA 1 Not Detected PARAINFLUENZA 2 Not Detected PARAINFLUENZA 3 Not Detected PARAINFLUENZA 4 Not Detected RHINOVIRUS Not Detected RSV A Not Detected RSV B Positive for RSV B by NAAT technology NAAT METHOD Testing was performed using nucleic acid amplification ORGANISM 1: RSV B Performed By: #### M100.638 #### [facility] [address] [place], [address] BASIC METABOLIC Collected: 08/23/2018 Status: F Source: [place] PROFILE (BMP) 5:45 AM [facility] TYPE CODE TESTS RESULT OUT OF RANGE REFERENCE UNITS LAB L501.0100 74-106 mg/dL Normal GLU 93 Result Comment: Please note revised GLUCOSE reference range effective 2017. LAB L501.1000 7-18 mg/dL High BUN 35 LAB L501.1100 0.55-1.02 mg/dL High CREAT,SERUM 1.10 Result Comment: The validity of the calculated GFR AND GFRAA in patients over 70 years has not been determined. Clinical correlation is essential. LAB L501.1110 >60 mL/min Low EST GFR 51 Result Comment: Non- GFR Calc LAB L501.1115 >60 mL/min Normal EST GFR - AA 61 Result Comment: GFR Calc LAB L501.1255 ml/min Normal Estimated CRCL 31.72 LAB L501.1300 10-20 RATIO High BUN/CRE 31.8 LAB L501.2200 8.5-10 mg/dL Normal .1 CA 9.2 LAB L501.5300 136-14 mmol/L Normal 5 NA 142 LAB L501.5600 3.5-5. mmol/L Normal 1 K 4.2 LAB L501.5900 98-107 mmol/L Normal CL 104 LAB L501.6100 21.0-3 mmol/L Normal 2.0 CO2 28.0 LAB L501.6200 5-15 Normal GAP 10 Performed By: #### L500.2500 #### [facility] [address] [place], [address] 12 LEAD ELECTROCARDIOGRAM Observed: 08/19/2018 Status: F Source: [place] 3:41 PM [facility] [facility] Cardiovascular Services [address] [place] [address] 12 Lead EKG 08/17/18 0001 MR#: [id number] Acct: [id number] Name: LI GRIFFITH Rep #: [id number] : 1935 82 From: Que Harmon MD Attending Dr: Juvenal Barber MD, Chi Status: ADM IN Ordering Dr: Juvenal Barber MD Date: 08/16/18 Location: [facility] Sex: F C Admitted: 08/13/18 Test Reason : CP Blood Pressure : / mmHG Vent. Rate : 064 BPM Atrial Rate : 064 BPM P-R Int : 204 ms QRS Dur : 156 ms QT Int : 450 ms P-R-T Axes : 072 268 070 degrees QTc Int : 464 ms Electronic ventricular pacemaker Confirmed by QUE HARMON MD ([id number]), editor book MARIBEL VAZQUEZ ([id number]) on 08/19/2018 3:40:47 PM Referred By: SUNIL Confirmed By:QUE HARMON MD 08/19/18 1540 Date Que Harmon MD CC: Mariaa Mg III, MD; Juvenal Barber MD Signed HISTORY AND PHYSICAL Observed: 08/15/2018 Status: F Source: [place] EXAM 9:39 AM [facility] Medical Records Department [address] [place] [address] History and Physical 08/13/18 1649 MR#: [id number] Acct: [id number] Name: LI GRIFFITH Rep #: [id number] : 1935 82 From: Juvenal Barber MD PCP: Mariaa Mg III, MD Status: ADM IN Y Location: [place] [address]-1 Problem List (1) Gout Status: Acute (2) Acute on chronic kidney failure Status: Acute (3) Goiter Status: Chronic (4) Hyperlipidemia Status: Chronic (5) Anxiety Status: Chronic (6) Acute upper GI bleed Status: Acute Comment: PUD with duodenal ulcer (7) Hypertension Status: Chronic (8) Parathyroid adenoma Status: Chronic (9) Acute systolic (congestive) heart failure Status: Acute (10) COPD (chronic obstructive pulmonary disease) Status: Chronic (11) Coronary artery disease Status: Chronic (12) Peripheral vascular disease Status: Chronic Comment: severe History of Present Illness Date of Admission: 08/13/18 Chief Complaint: Here for rehabilitation, strengthening, prior to discharge home with spouse. The patient is a 82 year old Female with below past medical history presented to [facility] Emergency Department 08/03/2018 with vomiting, diarrhea. Black stool, bloody stool, coffee ground emesis. Fell from lightheadedness. Zofran, IV Fluids given. CT abdomen/pelvis showed diverticulosis. Hemoglobin 10.0, Glucose 177, BUN 68, Cr 1.50. INR 1.2, Stool guaiac negative, but maybe false negative, Troponin 0.017. NG tube unable. 08/03/2018 Admit to Hospital for Upper GI Bleed. IV Fluids, Hold Aspirin, Hold Plavix. IV Zofran, IV Protonix for Upper GI Bleed. Hold Digoxin for acute kidney injury. Hold Lasix, Aldactone. Needs right lower extremity intervention stent. 08/04/2018 Dr. Bazan performed EGD, oozing duodenal ulcer injected with epinephrine. 08/05/2018 Echo Normal LV size. Moderate concentric LVH. EF 35% Moderately severe segmental systolic dysfunction. 08/05/2018 Dr. Bazan performed EGD, non-bleeding duodenal ulcer, with NO stigmata of bleeding. 08/07/2018 Transfused 3 units Packed Red Blood Cells, Hemoglobin stable. Lasix 40MG IV BID for volume overload. Consider stopping Digoxin with chronic kidney disease stage 3 to 4. Restart Synthroid. 08/07/2018 Doppler of legs NEGATIVE for DVT. 08/08/2018 Chest X-ray mild cardiomegaly, COPD, negative acute findings. 08/08/2018 Right hand pain treated as cellulitis with IV Cefepime. 08/08/2018 X-ray right hand osteoarthritis, small erosion 5th proximal phalanx. 08/11/2018 Dr. Hull stop Losartan, Lasix, Aldactone. Check PTH, Calcium for hyperparathyroidism. Prednisone for gout, consider colchicine, Allopurinol. Uric acid 9.9. 08/12/2018 Prednisone for gout, placement at TCU. Cefepime discontinued, right hand secondary to gout, not cellulitis. 08/13/2018 Admit to TCU with debility, here for rehabilitation, strengthening, prior to discharge home with spouse. Past Medical History Past Medical History (Chronic Problems): Chronic Problems (Last Reviewed 08/03/18 @ 07:33 by Messi Hendricks MD) Hypothyroidism (Chronic) Cardiomyopathy (Chronic) 35% Hypertension (Chronic) Parathyroid adenoma (Chronic) History of breast cancer (Chronic) History of left mastectomy (Chronic) Chronic renal failure, stage 4 (severe) (Chronic) Hyperuricemia (Chronic) Osteoporosis (Chronic) Goiter (Chronic) Hyperlipidemia (Chronic) Anxiety (Chronic) Arrhythmia (Chronic) COPD (chronic obstructive pulmonary disease) (Chronic) Coronary artery disease (Chronic) Peripheral vascular disease (Chronic) severe Medical History: Medical History (Last Reviewed 08/03/18 @ 07:33 by Messi Hendricks MD) CAD (coronary artery disease) I25.10 History of breast cancer Z85.3 Hypothyroidism E03.9 PAD (peripheral artery disease) I73.9 Pacemaker Z95.0 COPD (chronic obstructive pulmonary disease) J44.9 HTN (hypertension) I10 Allergies alendronate sodium [From Fosamax] Allergy (Verified 08/03/18 [...] Z95.820 Status post peripheral artery angioplasty Z98.62 Surgical History: coronary bypass surgery, pacemaker implantation, - - fem artery bypass, Stent. 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 OPERATOR history Lives: Spouse/ Significant Other Smoking Status: Never smoker Tobacco Use: Non-smoker Alcohol: None Drugs: None - *Family History Maternal Family History: Family History (Last Reviewed 08/03/18 @ 07:34 by Messi Hendricks MD) Sister Breast cancer Hypertension History Items: No pertinent history Paternal Family History: Family History (Last Reviewed 08/03/18 @ 07:34 by Messi Hendricks MD) Sister Breast cancer Hypertension History Items: No pertinent history Review of Systems Constitutional: Denies: Chills, Fever, Weight Change HEENT: Denies: Head Aches, Sinus Congestion, Sinus Drainage Cardiovascular: Denies: Chest Pain, Palpitations Respiratory: Denies: Cough, Shortness of breath at rest, Sputum production Gastrointestinal: Denies: Abdominal Pain, Nausea, Vomiting Genitourinary: Denies: Dysuria Musculoskeletal: Denies: Joint Pain, Joint Tenderness Skin: Denies: Rash, Wounds Neurological: Denies: Numbness, Tingling, Focal weakness Psychiatric: Denies: Anxiety, Depression, Homicidal Ideations, Suicidal Ideations Hematologic/ Lymphatic: Denies: Easy Bruising, Easy Bleeding VTE Information - Inpt Only VTE Present on Admission: No VTE Mechan Device Prophylaxis: SCD's VTE Pharm Prophylaxis ordered?: No Reason prophylaxis not ordered:: Medical Contraindication Patient Problems: Active and Suspected Problems (Last Reviewed 08/03/18 @ 07:33 by Messi Hendricks MD) Gout (Acute) Acute on chronic kidney failure (Acute) - Physical Exam General: Alert, Oriented x3, Cooperative HEENT: Atraumatic, PERRLA, EOMI, Normocephalic Neck: Supple, No JVD, Negative Carotid Bruits Lungs: Clear to auscultation, Normal air movement, Diminished - Left base. Cardiovascular: Regular rate, No murmurs Abdomen: Bowel Sounds Present, Soft, Non Tender Extremities: No edema, Capillary Refill Less than 3 Seconds Skin: No rashes, No breakdown Musculoskeletal: No Tenderness to Palpation of Joints or Extremities Neurological: Cranial nerves II-XII grossly intact Psych/Mental Status: Normal Affect, Appropriate Oxygen Delivery Method Room Air Weight: 54.4 kg Body Mass Index (BMI) 21.9 Assessment/Plan All Active Problems (Last Reviewed 08/03/18 @ 07:33 by Messi Hendricks MD) Acute upper GI bleed (Acute) Acute gouty arthritis (Acute) Acute systolic (congestive) heart failure (Acute) Cellulitis (Ruled-out) Gout (Acute) Acute on chronic kidney failure (Acute) Hyperparathyroidism (Acute) Acute blood loss anemia (Acute) CAP (community acquired pneumonia) (Resolved) Severe sepsis (Resolved) 82 year old female with below past medical history hospitalized for acute Upper GI bleed requiring 3 units PRBC transfusion, complicated by gout exacerbation, acute on chronic kidney failure, admitted to TCU with debility, here for rehabilitation, strengthening, prior to discharge home with spouse. * Debility - PT/OT. * Pain - Tylenol 1000MG Q6H PRN mild pain, Tramadol 50MG Q8H PRN moderate pain. * Bowel - Miralax 17GM daily, Senna/colace 1 tablet BID, Dulcolax 10MG PO daily PRN. * Pneumonia vaccination - Administer Prevnar 13 and/or Pneumovax 23 as necessary. * DVT prophylaxis - SCD's, systemic anticoagulation high risk recent UGIB. * Insomnia - Lorazepam 0.5MG QHS PRN, resident doing well with chronic half-way use, GDR clinically contraindicated. * Coronary Artery Disease - Coreg 12.5MG BID, Plavix 75MG daily, NTG 0.4MG SL Q5M PRN. * Vitamin D deficiency - D3 2000IU daily. * Peripheral Arterial Occlusive Disease - Plavix 75MG daily, further intervention with Dr. Maury Mg. * Neuropathic pain - Gabapentin 100MG BID. * Hypothyroidism - Levothyroxine 100MCG daily. * Duodenal ulcer/UGIB - Pantoprazole 40MG BID, monitor H AND H. * Gout - Prednisone 20MG daily thru 08/15/2018, consider uric acid lowering agents such as Allopurinol or Uloric. * Osteoporosis - Actonel 35MG Qmonth. * Acute on chronic systolic congestive heart failure (EF 35%) - Coreg 12.5MG BID, Rx Entresto 24/26MG BID x 2 weeks, 49/51MG BID x 2 weeks, then 97/103MG BID, monitor blood pressure, electrolytes, adding Entresto will decrease risk of mortality, hospitalization from heart failure. 08/15/18 0939 <Electronically signed by Juvenal Barber MD> Date Juvenal Barber MD Cosigner Signature: Date (if applicable) CC: Mariaa Mg III, MD; Juvenal Barber MD Signed CBC W/DIFF, AUTOMATED Collected: 08/14/2018 Status: F Source: [place] 7:10 AM [facility] [place] TYPE CODE TESTS RESULT OUT OF RANGE REFERENCE UNITS LAB L100.1000 4.4-11.0 K/mm3 Normal WBC 8.6 LAB L100.1200 4.2-5.4 M/mm3 Low RBC 2.91 LAB L100.1300 12.0-15.0 g/dl Low HGB 9.0 LAB L100.1400 37-47 % Low HCT 29.2 LAB L100.1500 81-99 fL High MCV 100.3 LAB L100.1600 27.0-32.0 pg Normal MCH 30.9 LAB L100.1700 32-36 g/gl Low MCHC 30.8 LAB L100.1810 11.6-14.6 % High RDW CV 15.7 LAB L100.1820 35.1-43.9 fl High RDW SD 54.4 LAB L100.1900 150-450 K/mm3 Normal PLT 399 LAB L100.2000 6.2-12.0 fl Normal MPV 10.1 LAB L100.2100 47-70 % High NEUT% 87.2 LAB L100.2200 19-41 % Low LY% 7.7 LAB L100.2300 0-10 % Normal MONO% 4.8 LAB L100.2400 0-5 % Normal EO% 0.0 LAB L100.2500 0-1 % Normal BASO% 0.0 LAB L100.2550 0.0-0.9 % Normal IM GRAN % 0.300 Result Comment: IG% - Immature Granulocytes (promyelocytes, myelocytes and metamyelocytes) > 1% indicates that a LEFT SHIFT is Present. LAB L100.2620 2.0-7.7 X10 3/uL Normal Absolute Neut 7.5 LAB L100.2720 0.83-4.51 X10 3/ul Low Absolute Lymph 0.66 Performed By: #### L100.0100 #### [facility] [address] [place], [address] BASIC METABOLIC Collected: 08/14/2018 Status: F Source: [place] PROFILE (BMP) 7:10 AM [facility] [place] TYPE CODE TESTS RESULT OUT OF RANGE REFERENCE UNITS LAB L501.0100 74-106 mg/dL High GLU 133 Result Comment: Fasting Glucose result greater than or equal to 126 mg/dL suggests DIABETES MELLITUS per A.D.A. criteria. Please note revised GLUCOSE reference range effective 2017. LAB L501.1000 7-18 mg/dL High BUN 41 LAB L501.1100 0.55-1.02 mg/dL High CREAT,SERUM 1.29 Result Comment: The validity of the calculated GFR AND GFRAA in patients over 70 years has not been determined. Clinical correlation is essential. LAB L501.1110 >60 mL/min Low EST GFR 42 Result Comment: Non- GFR Calc LAB L501.1115 >60 mL/min Low EST GFR - AA 51 Result Comment: GFR Calc LAB L501.1255 ml/min Normal Estimated CRCL 27.05 LAB L501.1300 10-20 RATIO High BUN/CRE 31.8 LAB L501.2200 8.5-10 mg/dL Normal .1 CA 9.7 LAB L501.5300 136-14 mmol/L Normal 5 NA 141 LAB L501.5600 3.5-5. mmol/L Normal 1 K 5.1 LAB L501.5900 98-107 mmol/L Normal CL 106 LAB L501.6100 21.0-3 mmol/L Normal 2.0 CO2 26.0 LAB L501.6200 5-15 Normal GAP 9 Performed By: #### L500.2500 #### [facility] [address] [place], [address] DISCHARGE SUMMARY Observed: 08/13/2018 Status: F Source: [place] 10:07 AM [facility] [place] [facility] Medical Records Department [address] [place] [address] Discharge Summary 08/13/18 0942 MR#: [id number] Acct: [id number] Name: LI GRIFFITH Rep #: [id number] : 1935 82 From: Ino Gilliam DO PCP: Mariaa Mg III, MD Status: ADM IN Y Location: [facility] [place] [id number] Discharge Date and Diagnosis - Problem List Patient Problems: Active and Suspected Problems (Last Reviewed 08/03/18 @ 07:33 by Messi Hendricks MD) Acute upper GI bleed (Acute) PUD with duodenal ulcer Acute gouty arthritis (Acute) Acute systolic (congestive) heart failure (Acute) Acute blood loss anemia (Acute) Date of Admission: 08/03/18 Date of Discharge: 08/13/18 - Primary Discharge Diagnosis Active and Suspected Problems (Last Reviewed 08/03/18 @ 07:33 by Messi Hendricks MD) Acute upper GI bleed (Acute) PUD with duodenal ulcer Acute gouty arthritis (Acute) Acute systolic (congestive) heart failure (Acute) Acute blood loss anemia (Acute) Acute kidney injury on CRF stage 4 - Secondary Discharge Diagnosis Chronic Problems (Last Reviewed 08/03/18 @ 07:33 by Messi Hendricks MD) Hypothyroidism (Chronic) Cardiomyopathy (Chronic) 35%EF Hypertension (Chronic) Parathyroid adenoma (Chronic) History of breast cancer (Chronic) History of left mastectomy (Chronic) Chronic renal failure, stage 4 (severe) (Chronic) Hyperuricemia (Chronic) Osteoporosis (Chronic) Arrhythmia (Chronic) COPD (chronic obstructive pulmonary disease) (Chronic) Coronary artery disease (Chronic) Peripheral vascular disease (Chronic) severe Hospital Course and Treatment Imaging Results: Clinical Impression(s) from Imaging Studies Abdomen/Pelvis CT [...] 4:49 EST Tel , Service support , Chest X-Ray 08/08/18 05:00 IMPRESSION: Stable chest, no acute cardiopulmonary disease. Mild cardiomegaly. COPD. Electronically Signed: Michael Abebe MD at 7:25 EST , Service support , Hand X-Ray 08/08/18 11:57 IMPRESSION: Multifocal osteoarthritis as described. A small erosion is noted involving the ulnar base of the fifth proximal phalanx. Electronically Signed: Ha Collazo MD at 14:21 EST Tel , Service support , Laboratory Tests WBC 9.8 (4.4-11.0) K/mm3 WBC (4.4-11.0) K/mm3 RBC (4.2-5.4) M/mm3 Hgb 7.6 L (12.0-15.0) g/dl Hct 24.1 L (37-47) % WBC (4.4-11.0) K/mm3 RBC (4.2-5.4) M/mm3 WBC (4.4-11.0) K/mm3 RBC (4.2-5.4) M/mm3 WBC 10.9 (4.4-11.0) K/mm3 WBC 12.2 H (4.4-11.0) K/mm3 RBC 2.91 L (4.2-5.4) M/mm3 Hgb 9.0 L (12.0-15.0) g/dl WBC 10.2 (4.4-11.0) K/mm3 RBC 3.00 L (4.2-5.4) M/mm3 Hgb 9.5 L (12.0-15.0) g/dl WBC 10.5 (4.4-11.0) K/mm3 WBC 9.6 (4.4-11.0) K/mm3 WBC (4.4-11.0) K/mm3 RBC (4.2-5.4) M/mm3 Hgb 8.2 L 7.2 L (12.0-15.0) g/dl Hct 25.9 L 22.4 L (37-47) % WBC (4.4-11.0) K/mm3 RBC (4.2-5.4) M/mm3 WBC 9.1 (4.4-11.0) K/mm3 Dr. Demar Schwartz and Dr. Roberto Emanuel-technician trainee Dr. Michelle Hull-nephrology Dr. Tristen Shaikh-[facility] general surgery Dr. Ciera Bazan-[facility] general surgery Operations: None Procedures: 2-D Echocardiogram - Moderate concentric left ventricular hypertrophy, ejection fraction 35%, segmental systolic dysfunction, moderate left atrial enlargement, 2+ mitral insufficiency, 2+ tricuspid insufficiency, EGD - Normal stomach and esophagus. 1 oozing duodenal ulcer with adherent clot-injected with epinephrine Summary of Care Provided: The patient is a 82 year old F with a past medical history of coronary artery disease, cardiomyopathy, CABG, severe peripheral vascular disease, hypothyroidism, stage IV chronic renal failure, pacemaker implantation, systolic congestive heart failure, hypertension, osteoporosis, parathyroid adenoma, hyperparathyroidism and COPD who presented to the emergency department at [facility] on 08/03/2018 with complaints of tarry black stool, and coffee-ground emesis. Hemoglobin in the emergency department was 10. She was admitted to the intensive care unit and an EGD was performed on 08/04/2018 showing a large duodenal ulcer with adherent clot and a small amount of oozing. The ulcer was injected by Dr. Bazan with epinephrine and a repeat EGD was performed on 08/05/2018 and it did not show any bleeding. She was transfused with 3 units of packed red blood cells during her hospital admission. With blood products and intravenous fluids she developed acute systolic congestive heart failure and was diuresed with a few doses of Lasix. The congestive heart failure resolved however she developed acute on chronic renal failure and her creatinine peaked at 1.92. Fractional excretion of sodium was consistent with prerenal azotemia. Dr. Michelle Hull was consulted to participate in management and the patient was gently hydrated. The creatinine at NM is 1.22. Following diuresis she also developed a red, swollen and painful R middle finger. WBC was elevated and she had a low grade fever. She was started on Cefepime for presumed hospital acquired cellulitis. She went on to develop redness, increased warmth and swelling of her right ankle and it was exquisitely tender to even light touch. Uric acid was checked and was 9.9. She was started on prednisone 20 mg daily and after 3 doses the pain is much improved and you can touch her ankle without her crying out in pain now. Cefepime was discontinued because the swollen painful right middle finger was most likely acute gouty arthritis as well. Fevers resolved with institution of prednisone. Because of the acute gouty arthritis she was unable to bear weight on her feet and has been unable to ambulate. She is being transferred to the transitional care unit on 08/13/2018 for further PT/OT prior to returning home. She will need to follow-up with Dr. Bazan in 4-6 weeks to reevaluate the ulcer. She will follow-up with Dr. Michelle Hull for chronic stage IV kidney failure following discharge from TCU. She will also follow-up with Dr. Maury Mg who she sees for severe peripheral vascular disease. She will follow-up with Dr. Mariaa Mg iii for her routine medical care. - Physical Exam General: Alert, Oriented x3, Cooperative, No apparent distress, she appears to be much more comfortable today. Oral: Moist Mucosa Neck: No JVD Lungs: Rales - few coarse rales in the bases that mostly resolved after a few deep breaths, - - No conversational dyspnea, no accessory muscle use, not tachypneic, symmetric chest expansion Cardiovascular: Regular rate, Regular Rhythm, Normal S1, Normal S2, No rub noted, No Gallop Abdomen: Bowel Sounds Present, Soft, Non Tender, Non-Distended Extremities: Edema - of the feet BL R>L. There is less redness of the R ankle and first MTP today and I can touch the ankle and move it with no significant pain today. The ankle is still warm to touch. The right second finger is a purplish color with no increased warmth to touch......the PIP joint is less swollen and painful Skin: No rashes Neurological: Cranial nerves II-XII grossly intact, Neuro grossly intact Psych/Mental Status: Normal Affect, Appropriate and in a good mood today This note was generated with HipSwapation software. It may contain incorrect words, spelling, and punctuation that were not noted in checking the note before signing. Patient Problems: Active and Suspected Problems (Last Reviewed 08/03/18 @ 07:33 by Messi Hendricks MD) Acute upper GI bleed (Acute) PUD with duodenal ulcer Acute gouty arthritis (Acute) Acute systolic (congestive) heart failure (Acute) Acute blood loss anemia (Acute) - Physical Exam Vital Signs Temp Pulse Resp BP Pulse Ox 98.1 F 61 20 H 137/73 H 96 08/13/18 09:02 08/13/18 09:02 08/13/18 09:02 08/13/18 09:02 08/13/18 09:02 Oxygen Flow Rate (L/min) 2 Oxygen Delivery Method Room Air Weight: 118 lb 13.266 oz Body Mass Index (BMI) 21.9 Intake and Output for Last 24 Hours Intake Total 650 / 650 1881 / 1881 1143 / 1143 Output Total 550 / 550 1051 / 1051 1100 / 1100 Balance 100 / 100 830 / 830 43 / 43 Microbiology Past 72 Hours 08/08/18 18:00 Urine Culture - Final Urine Catheter - Catheter Culture exhibits no growth. 08/08/18 05:10 Blood Culture - Preliminary Laboratory Tests Past 24 Hrs Hgb 8.2 L Hct 26.1 L Sodium 140 Potassium 4.8 Chloride 108 H Carbon Dioxide 25.0 Anion Gap 7 Home Medications: Medications to take at Discharge Clopidogrel Bisulfate [Plavix] 75 mg PO DAILY 12/15/16 Levothyroxine [Synthroid] 100 mcg PO DAILY 07/08/17 Lorazepam [Ativan] 0.5 mg PO QHS PRN PRN 07/08/17 Nitroglycerin [Nitrostat] 0.4 mg SL PRN PRN 07/08/17 Cholecalciferol (VIT D3) [Vitamin D3] 2,000 unit PO DAILY 08/03/18 Gabapentin [Neurontin] 100 mg PO BIDCM 08/03/18 Risedronate [Actonel] 35 mg PO QWEEK 08/03/18 Carvedilol [Coreg (Beta Sonya)] 12.5 mg PO BID tablet 08/13/18 Hydrocodone Bitart/Apap 5-325 [[place] 5/325] 1 tablet PO Q6H PRN PRN #1 tablet 08/13/18 Pantoprazole Sodium [Protonix] 40 mg PO BID tablet 08/13/18 predniSONE tablet 20 mg PO DAILY@0800 #2 tablet 08/13/18 Primary Care Physician: Mariaa Mg III, MD [Primary Care Provider] - Please follow up with your Primary Care Physician in: following DC from TCU Please Follow Up With: Dr. Ciera Bazan When: after DC from TCU for follow up on the duodenal ulcer Please Follow Up With: Michelle Hull DO When: Following DC from TCU Please Follow Up With: Maury Mg MD When: as instructed by Dr. Mg Disposition: Group Home facility Minutes spent on discharge:: 40 Patient Condition:: Stable Medical Necessity - Tobacco Use Smoking Status: Never smoker Meaningful Use Info Meaningful Use Diagnoses (Choose all that apply): CHF - CHF LEDY/ARB ordered at discharge?: No Reason LEDY/ARB not ordered?: Worsening renal dysfunctn Documented LVEF (%): 35 Code Visit Inpatient E AND M: [id number] Disch Hosp 08/13/18 1007 <Electronically signed by Ino Gilliam DO> Date Yolande Gilliam DO Cosigner Signature (if applicable): Date CC: Lara Gilliam; Mariaa Mg III, MD Signed Observed: 08/13/2018 Status: F Source: [place] STOOL OCCULT BLOOD 10:00 AM [facility] Positive ORGANISM 1: OCCULT BLOOD POSITIVE Performed By: #### M100.7900 #### [facility] [address] [place], [address] TRANSFER TO [facility] Observed: 08/13/2018 Status: F Source: [place] CARE 9:42 AM [facility] [place] [facility] Medical Records Department [address] [place] [address] Transfer to Extended Care MR#: [id number] Acct: [id number] Name: GRIFFITHLI E Rep #: [id number] : 1935 82 From: Ino Gilliam DO PCP: Mariaa Mg III, MD Status: ADM IN LI GRIFFITH (Patient) (Health Ins. Claim No.) (Day of Discharge to Facility) Certification of patient admission REQUIRED AT TIME OF ADMISSION. I CERTIFY THAT POST-HOSPITAL ECF SERVICES ARE REQUIRED TO BE GIVEN ON AN IN-PATIENT BASIS BECAUSE OF THE ABOVE NAMED PATIENT'S NEED FOR DETENTION CARE ON A CONTINUING BASIS FOR THE CONDITION(S) FOR WHICH HE/SHE WAS RECEIVING IN-PATIENT HOSPITAL SERVICES PRIOR TO HIS/HER TRANSFER TO THE ECF. 08/13/18 0942 <Electronically signed by Ino Gilliam DO> Date Ino Gilliam DO - Diet 08/12/18 09:46 Diet: Renal: 60 gm protein Dietary Modifications:: Low Purine Diet Is pt able to select menu?: Yes Diet Comments: advance as tolerated - Routine Orders/Code Status Enema Type: Fleetz Enema Frequency: Daily PRN Suppository Type: Dulcolax 10mg Suppository Frequency: Daily PRN O2 Liters per Minute: 1-2 O2 Frequency: PRN Keep PO Greater than or Equal to (%): 90 Routine Lab Work: - - dig level, HH, BMP, phos on 08/15/18 - Therapies Weight Bearing: Full weight bearing Physical Therapy: Eval and Treat Occupational Therapy: Eval and Treat - Problem/Diagnosis (1) Acute blood loss anemia Status: Acute Current Visit: Yes (2) CAP (community acquired pneumonia) Status: Resolved Current Visit: No (3) Hyperparathyroidism Status: Acute Comment: she has a parathyroid mass and she also has CRF stage 4 Current Visit: No (4) Peripheral vascular disease Status: Chronic Comment: severe Current Visit: No (5) Severe sepsis Status: Resolved Current Visit: No (6) Arrhythmia Status: Chronic Current Visit: No (7) COPD (chronic obstructive pulmonary disease) Status: Chronic Current Visit: No (8) Coronary artery disease Status: Chronic Current Visit: No (9) Hypothyroidism Status: Chronic Current Visit: Yes (10) Cardiomyopathy Status: Chronic Comment: 35% Current Visit: Yes (11) Acute upper GI bleed Status: Acute Comment: PUD with duodenal ulcer Current Visit: Yes (12) Hypertension Status: Chronic Current Visit: Yes (13) Parathyroid adenoma Status: Chronic Current Visit: Yes (14) History of breast cancer Status: Chronic Current Visit: Yes (15) History of left mastectomy Status: Chronic Current Visit: Yes (16) Chronic renal failure, stage 4 (severe) Status: Chronic Current Visit: Yes (17) Acute gouty arthritis Status: Acute Current Visit: Yes (18) Hyperuricemia Status: Chronic Current Visit: Yes (19) Acute systolic (congestive) heart failure Status: Acute Current Visit: Yes (20) Cellulitis Status: Ruled-out Current Visit: Yes (21) Osteoporosis Status: Chronic Current Visit: Yes - Allergies/Procedures Done in Hospital Allergies/Adverse Reactions: Allergies alendronate sodium [From Fosamax] Allergy (Verified 08/03/18 [...] Adverse Reaction (Verified 08/03/18 02:29) Upset Stomach Procedures: 2-D Echocardiogram, EGD - Type of Care/Length of Stay Estimated LOS: Convalescent Care Less Than 30 days Type of Care Needed: Skilled Rehab Potential: Good Prognosis: Good - Additional Orders/Day of Discharge Additional Orders: OK to restart the Plavix Wednesday IF H/H still stable. May be able to restart losartan if the potassium remains within normal limits and the creatinine is stable. Would not restart Lasix unless she develops rails and shortness of breath or her weight is increasing. Avoid intravenous Lasix if possible as she developed hyperuricemia and acute gouty arthritis. Consider starting allopurinol 100 mg daily when the acute gouty arthritis resolves. No aspirin, nonsteroidal anti-inflammatory drugs. Do not elevate the lower extremities-she has severe peripheral vascular disease. Antibiotics were stopped because the etiology of the swelling and erythema of the right second finger was most likely gouty arthritis and not cellulitis. H AND P will serve as current which was dated: 08/03/18 Day of Discharge: 08/13/18 - Dietary and Speech Recommendations Dietitian Recommendations/Changes: Please reweigh patient. Rec liberalize diet to Cardiac / low purine as medically able. - Follow Up Care Primary Care Physician: Mariaa Mg III, MD [Primary Care Provider] - Please follow up with your Primary Care Physician in: following DC from TCU Please Follow Up With: Tristen Shaikh MD When: after DC from TCU Please Follow Up With: Michelle Hull DO When: Following DC from TCU Please Follow Up With: Maury Mg MD When: as instructed by Dr. Mg 08/13/18 0942 <Electronically signed by Ino Gilliam DO> Date Ino Gilliam DO CC: Demar Schwartz MD; Michelle uHll DO; Mariaa Mg III, MD; Ciera Bazan MD; Tristen Shaikh MD; Maury Mg MD; Juvenal Barber MD Signed HH, HEMOGLOBIN AND Collected: 08/13/2018 Status: F Source: [place] HEMATOCRIT 6:46 AM [facility] [place] TYPE CODE TESTS RESULT OUT OF RANGE REFERENCE UNITS LAB L100.1300 12.0-15.0 g/dl Low HGB 8.2 LAB L100.1400 37-47 % Low HCT 26.1 Performed By: #### L100.0600 #### [facility] [address], [address] BASIC METABOLIC Collected: 08/13/2018 Status: F Source: [place] PROFILE (BMP) 6:46 AM [facility] TYPE CODE TESTS RESULT OUT OF RANGE REFERENCE UNITS LAB L501.0100 74-106 mg/dL Normal GLU 95 Result Comment: Please note revised GLUCOSE reference range effective 2017. LAB L501.1000 7-18 mg/dL High BUN 37 LAB L501.1100 0.55-1.02 mg/dL High CREAT,SERUM 1.22 Result Comment: The validity of the calculated GFR AND GFRAA in patients over 70 years has not been determined. Clinical correlation is essential. LAB L501.1110 >60 mL/min Low EST GFR 45 Result Comment: Non- GFR Calc LAB L501.1115 >60 mL/min Low EST GFR - AA 54 Result Comment: GFR Calc LAB L501.1255 ml/min Normal Estimated CRCL 27.29 LAB L501.1300 10-20 RATIO High BUN/CRE 30.3 LAB L501.2200 8.5-10 mg/dL Normal .1 CA 9.2 LAB L501.5300 136-14 mmol/L Normal 5 NA 140 LAB L501.5600 3.5-5. mmol/L Normal 1 K 4.8 LAB L501.5900 98-107 mmol/L High CL 108 LAB L501.6100 21.0-3 mmol/L Normal 2.0 CO2 25.0 LAB L501.6200 5-15 Normal GAP 7 Performed By: #### L500.2500 #### [facility] [place], [address] CBC W/DIFF, AUTOMATED Collected: 08/12/2018 Status: F Source: [place] 5:54 AM [facility] [facility] [place] TYPE CODE TESTS RESULT OUT OF RANGE REFERENCE UNITS LAB L100.1000 4.4-11.0 K/mm3 Normal WBC 9.8 LAB L100.1200 4.2-5.4 M/mm3 Low RBC 2.49 LAB L100.1300 12.0-15.0 g/dl Low HGB 7.7 LAB L100.1400 37-47 % Low HCT 25.1 LAB L100.1500 81-99 fL High MCV 100.8 LAB L100.1600 27.0-32.0 pg Normal MCH 30.9 LAB L100.1700 32-36 g/gl Low MCHC 30.7 LAB L100.1810 11.6-14.6 % High RDW CV 15.5 LAB L100.1820 35.1-43.9 fl High RDW SD 52.3 LAB L100.1900 150-450 K/mm3 Normal PLT 300 LAB L100.2000 6.2-12.0 fl Normal MPV 10.5 LAB L100.2100 47-70 % High NEUT% 86.1 LAB L100.2200 19-41 % Low LY% 6.9 LAB L100.2300 0-10 % Normal MONO% 6.8 LAB L100.2400 0-5 % Normal EO% 0.0 LAB L100.2500 0-1 % Normal BASO% 0.1 LAB L100.2550 0.0-0.9 % Normal IM GRAN % 0.100 Result Comment: IG% - Immature Granulocytes (promyelocytes, myelocytes and metamyelocytes) > 1% indicates that a LEFT SHIFT is Present. LAB L100.2620 2.0-7.7 X10 3/uL High Absolute Neut 8.4 LAB L100.2720 0.83-4.51 X10 3/ul Low Absolute Lymph 0.67 Performed By: #### L100.0100 #### [facility] [address] [place], [address] RENAL PROFILE Collected: 08/12/2018 Status: F Source: [place] 5:54 AM [facility] [place] [place] TYPE CODE TESTS RESULT OUT OF RANGE REFERENCE UNITS LAB L501.0100 74-106 mg/dL High GLU 151 Result Comment: Fasting Glucose result greater than or equal to 126 mg/dL suggests DIABETES MELLITUS per A.D.A. criteria. Please note revised GLUCOSE reference range effective 2017. LAB L501.1000 7-18 mg/dL High BUN 40 LAB L501.1100 0.55-1.02 mg/dL High CREAT,SERUM 1.57 Result Comment: The validity of the calculated GFR AND GFRAA in patients over 70 years has not been determined. Clinical correlation is essential. LAB L501.1110 >60 mL/min Low EST GFR 34 Result Comment: Non- GFR Calc LAB L501.1115 >60 mL/min Low EST GFR - AA 41 Result Comment: GFR Calc LAB L501.1255 ml/min Normal Estimated CRCL 21.21 LAB L501.1300 10-20 RATIO High BUN/CRE 25.5 LAB L501.1800 3.2-5. g/dL Low 0 ALB 2.2 LAB L501.2200 8.5-10 mg/dL Normal .1 CA 8.6 LAB L501.2300 2.5-4. mg/dL Normal 9 PHOS 2.7 LAB L501.5300 136-14 mmol/L Normal 5 NA 140 LAB L501.5600 3.5-5. mmol/L Normal 1 K 4.2 LAB L501.5900 98-107 mmol/L Normal CL 103 LAB L501.6100 21.0-3 mmol/L Normal 2.0 CO2 26.0 Performed By: #### L500.3600 #### [facility] [address] [place], [address] PTHIN Collected: 08/12/2018 Status: F Source: [place] 5:54 AM [facility] [place] [facility] [place] TYPE CODE TESTS RESULT OUT OF RANGE REFERENCE UNITS LAB L509.1000 18.4-80.1 pg/mL High PTHIN 195.8 Performed By: #### L509.1000 #### [facility] [address] [place], [address] CONSULTATION Observed: 08/11/2018 Status: F Source: [place] 9:29 PM [facility] [place] [facility] [place] [facility] Medical Records Department [address] [place] [address] Consultation 08/11/18 1257 MR#: [id number] Acct: [id number] Name: LI GRIFFITH Rep #: [id number] : 1935 82 From: Michelle Hull DO PCP: Mariaa Mg III, MD Status: ADM IN Location: [place] [address] Consultation - Renal 08/11/18 PCP/ Referring MD: Requesting physician: Dr. Gilliam Primary care physician: Mariaa Mg III, MD Reason for Consultation:: acute renal failure - History of Present Illness History of Present Illness: The patient is a 82 year old F admitted on 08/03 for GI bleed with coffee ground emesis, hematochezia and melena. She complained of abdominal pain. She takes excedrin on a chronic basis 1 tablet every 6hrs for leg pain and meloxicam at home. PMH significant for HTN, CAD s/p CABG 12 years ago and stents about 15 years ago on aspirin and Plavix, PAD with claudication s/p balloon angioplasty, goiter s/p thyroidectomy, parathyroid tumor, permanent pacemaker, cardiomyopathy LVEF 35%, heart failure on Lasix, spironolactone and digoxin at home currently discontinued due to renal failure. She had a CT abdomen on 08/03 with incidental right renal atrophy she was not aware of in the past. Creatinine on admit was 1.3 improved to 1.0 on 08/08. Creatinine increased to 1.9 today. Lasix, spironolactone, and Losartan were discontinued. She received a fluid bolus last night. Creatinine has been at 1.2 to 1.3 on review of [facility] records. She developed left knee and right foot pain, swelling and tenderness in third and fourth mid DIP joint in right hand. Uric acid level was found to be elevated at 9.9. Her transfer for OSH was canceled. She is on prednisone for acute gout. Her swelling and tenderness improved. She has poor intake, poor appetite. She denies CP, SOB, or edema. Urine output poor. Denies nausea, vomiting, diarrhea. She was scheduled to f/u with Dr Raymond at [facility] for hyperparathyroidism with elevated calcium at 10.9 to 11.1 since this past summer with PTH 70 to 110. She had a parathyroid scan done in [place] on 06/23/18 that showed enhanced lesion in left side of neck. She was prescribed sensipar by her pcp but has not started it yet. Calcium has been 8.6 to 9.0 during current hospitalization. - Allergies Allergies: Allergies acetaminophen [From Percocet] Allergy (Verified 08/03/18 [...] Adverse Reaction (Verified 08/03/18 02:29) Upset Stomach - Current Medications Current Medications: Current Medications Hydrocodone Bitart/Acetaminophen ([place] 5mg-325mg) 1 tablet PO Q6H PRN PRN PRN Reason: SEVERE PAIN (6-10/10) Last Admin: 08/11/18 10:07 Dose: 1 tablet Carvedilol (Coreg) 12.5 mg PO BID [facility] Last Admin: 08/11/18 09:54 Dose: 12.5 mg [facility] Last Admin: 08/11/18 09:54 Dose: 100 mg Heparin Sodium (Porcine) (Heparin Na) 5,000 unit SC Q12 [facility] Cefepime HCl 1 gm/ Sodium (Chloride) 50 mls @ 100 mls/hr IV Q24 [facility] Last Admin: 08/11/18 10:10 Dose: 100 mls/hr Labetalol HCl (Trandate) 10 mg IV Q4H PRN PRN PRN Reason: sbp>160 Levothyroxine Sodium (Synthroid) 100 mcg PO DAILY@0600 [facility] Last Admin: 08/11/18 05:43 Dose: 100 mcg Lorazepam (Ativan) 0.5 mg PO QHS PRN PRN PRN Reason: INSOMNIA Last Admin: 08/10/18 23:11 Dose: 0.5 mg Magnesium Hydroxide (Milk Of Magnesia) 30 ml PO DAILY PRN PRN PRN Reason: Constipation Magn[facility] Oxide (Mag-Ox 400) [facility] Last Admin: 08/11/18 09:54 Dose: 400 mg Morphine Sulfate () 2 - 4 mg IV Q2H PRN PRN PRN Reason: SEVERE PAIN (6-10/10) Last Admin: 08/10/18 08:12 Dose: 2 mg Ondansetron HCl (Zofran) 4 mg IV Q6H PRN PRN PRN Reason: NAUSEA/VOMITING Last Admin: 08/08/18 06:15 Dose: 4 mg Pantoprazole Sodium (Protonix) 40 mg PO BID [facility] Last Admin: 08/11/18 09:53 Dose: 40 mg Prednisone () 20 mg PO DAILY@0800 [facility] Psyllium Hydrophilic Mucilloid (Metamucil) 1 packet PO DAILY [facility] Last Admin: 08/11/18 10:10 Dose: 1 packet Sodium Chloride () 5 - 15 ml IV UD PRN PRN Reason: SALINE FLUSH Last Admin: 08/10/18 15:40 Dose: 10 ml Throat Lozenges (Cepacol Sore Throat Lozenge) 1 lozenge MUCOUS MEM Q4H PRN PRN PRN Reason: SORE THROAT Last Admin: 08/06/18 00:57 Dose: 1 lozenge - Past Medical History Past Medical History (Chronic Problems): Chronic Problems (Last Reviewed 08/03/18 @ 07:33 by Messi Hendricks MD) Arrhythmia (Chronic) COPD (chronic obstructive pulmonary disease) (Chronic) Coronary artery disease (Chronic) Peripheral arterial disease (Chronic) - Past Surgical History Surgical History: pacemaker implantation, - - fem artery bypass - Social History Smoking Status: Never smoker - Family History Maternal Family History: Family History (Last Reviewed 08/03/18 @ 07:34 by Messi Hendricks MD) Sister Breast cancer Hypertension History Items: No pertinent history Review of Systems Constitutional: Reports: Anorexia - dry mouth, Weakness, Fatigue. Denies: Chills, Fever Eyes: Denies: Double vision HEENT: Denies: Visual Changes Cardiovascular: Reports: Chest Pain - with exertion, - - CAD. Denies: Edema, Syncope Respiratory: Denies: Cough, Shortness of Breath Gastrointestinal: Reports: Abdominal Pain, Hematemesis, Hematochezia. Denies: Constipation, Diarrhea, Nausea, Vomiting Genitourinary: Denies: Dysuria Musculoskeletal: Reports: Joint swelling - fingers right hand, left knee, right foot gout, - - DJD, - - claudication Skin: Denies: Rash Neurological: Reports: Balance problems Hematologic/ Lymphatic: Denies: Anemia, Hx of blood clot Patient Problems: Active and Suspected Problems (Last Reviewed 08/03/18 @ 07:33 by Messi Hendricks MD) Acute blood loss anemia (Acute) Foot pain, right (Acute) - Physical Exam General: Alert, Oriented x3, Cooperative, No apparent distress, - - thin HEENT: PERRLA, EOMI Oral: Dry Mucosa Neck: Supple, No JVD Lungs: Clear to auscultation Cardiovascular: Regular rate, Murmur, No rub noted Abdomen: Bowel Sounds Present, Soft, Non Tender, Non-Distended, No Hepato-splenomegaly Extremities: No edema, Diminished Peripheral Pulses Musculoskeletal: Cachexia, Muscle Wasting, - - tender, swollen right 3rd, 4th mid DIP, right foot pain to light tough, DJD changes Lymphatic: No Cervical, Supraclavicular, or Inguinal Adenopathy Neurological: Cranial nerves II-XII grossly intact Psych/Mental Status: Normal Affect, Appropriate, Alert and oriented to time, place, person, mood and affect Vital Signs Temp Pulse Resp BP Pulse Ox 98.3 F 60 16 147/53 H 99 08/11/18 09:40 08/11/18 09:53 08/11/18 09:40 08/11/18 09:40 08/11/18 09:40 Oxygen Flow Rate (L/min) 2 Oxygen Delivery Method Room Air Weight: 53.9 kg Body Mass Index (BMI) 21.9 Intake and Output for Last 24 Hours Intake Total 1033 / 1033 650 / 650 Output Total 1500 / 1500 400 / 400 550 / 550 Balance -467 / -467 -400 / -400 100 / 100 Microbiology Past 72 Hours 08/08/18 18:00 Urine Culture - Final Urine Catheter - Catheter Culture exhibits no growth. 08/08/18 05:10 Blood Culture - Preliminary Laboratory Tests Past 24 Hrs WBC 10.9 RBC 2.72 L WBC RBC Hgb 8.6 L Hct 27.1 L MCV Clinical Impression(s) from Imaging Studies Abdomen/Pelvis CT [...] 4:49 EST Tel , Service support , Chest X-Ray 08/08/18 05:00 IMPRESSION: Stable chest, no acute cardiopulmonary disease. Mild cardiomegaly. COPD. Electronically Signed: Michael Abebe MD at 7:25 EST , Service support , Hand X-Ray 08/08/18 11:57 IMPRESSION: Multifocal osteoarthritis as described. A small erosion is noted involving the ulnar base of the fifth proximal phalanx. Electronically Signed: Ha Collazo MD at 14:21 EST Tel , Service support , Assessment/Plan All Active Problems (Last Reviewed 08/03/18 @ 07:33 by Messi Hendricks MD) Acute blood loss anemia (Acute) Foot pain, right (Acute) Respiratory abnormality (Acute) CAP (community acquired pneumonia) (Acute) Severe sepsis (Acute) Peripheral vascular disease (Acute) 1. SUNI suspect prerenal event from poor oral intake while on diuretics, ARB. Agree with discontinuation of Losartan, lasix, spironolactone. Suggest gentle hydration. Creatinine baseline 1.0 increased to 1.9 with atrophic right kidney incidental finding on CT abdomen 08/03 2. HTN stable 3. Claudication with PAD s/p bypass 4. CAD s/p CABG, PCI, CHF hx with LVEF 35%, PPM 5. GI bleed due to excessive excedrin use, NSAIDs, ASA, plavix. hgb stable 6. Primary vs tertiary hyperparathyroid with abnormal scan, hypercalcemia. Check PTH, corrected calcium. 7. Goiter s/p thyroidectomy 8. Hyperuricemia with gout in hand, foot on prednisone. Uric acid 9.9. Consider allopurinol after acute event resolved. Consider colchicine 0.6mg daily. 08/11/182128 <Electronically signed by Michelle Hull DO> Date Michelle Hull DO Cosigner Signature (if applicable): Date CC: Demar Schwartz MD; Michelle Hull DO; Mariaa Mg III, MD; Ciera Bazan MD Signed HH, HEMOGLOBIN AND Collected: 08/11/2018 Status: F Source: [place] HEMATOCRIT 9:05 PM [facility] [place] TYPE CODE TESTS RESULT OUT OF RANGE REFERENCE UNITS LAB L100.1300 12.0-15.0 g/dl Low HGB 7.6 LAB L100.1400 37-47 % Low HCT 24.1 Performed By: #### L100.0600 #### [facility] [address] [place], [address] CREATININE, URINE Collected: 08/11/2018 Status: F Source: [place] ([place]AND[place]) 5:05 PM [facility] TYPE CODE TESTS RESULT OUT OF RANGE REFERENCE UNITS LAB L501.1200 NO RANGE EST. mg/dL Normal UR CREAT 106.00 Performed By: #### L501.1200 #### [facility] [address] [place], [address] URINE SODIUM Collected: 08/11/2018 Status: F Source: [place] 5:05 PM [facility] [place] TYPE CODE TESTS RESULT OUT OF RANGE REFERENCE UNITS LAB L501.5500 Not Establ. mmol/L Normal UR NA 26 Performed By: #### L501.5500 #### [facility] [address] [place], [address] CONSULTATION Observed: 08/11/2018 Status: F Source: [place] 2:44 PM [facility] Medical Records Department [address] [place] [id number] Consultation 08/11/18 0532 MR#: [id number] Acct: [id number] Name: LI GRIFFITH Rep #: [id number] : [id number] From: Maury Mg MD PCP: Mariaa Mg III, MD Status: ADM IN Y Location: [place]3 [id number] Problem List (1) Foot pain, right Status: Acute Reason for Consult Date of Consultation: 08/11/18 History of Present Illness: The patient is a 82 year old F who I have been asked to see by Dr. Gilliam for evaluation of suspected critical ischemia of her right foot. A written copy of my surgical consult recommendations will be found in electronic medical records. I saw this patient recently July 20, 2018 in the office. She was at that point complaining of numbness and tingling of her toes on the ball of her feet constantly 24/7. She is able to walk 20-25 feet with right calf claudication greater than left. July 23, 2017 I had performed a left lower extremity arteriogram partially with carbon dioxide partially with contrast material because of her chronic renal insufficiency. She had complete occlusion of the left popliteal and tibioperoneal trunk and proximal left peroneal. I treated her with a 4 x 2 Powerflex angioplasty of the popliteal and a 2.5 x 120 mm nail across angioplasty of the peroneal. She did have recanalization with dissections that were fortunately not flow-limiting. At that time she had an ulcer of the foot which was able to be healed. On July 06, 2018 at the [facility] she had PVRs. The right DP and PT Doppler waveforms were both monophasic with the ankle-brachial indices at 0.35 and 0.47 at rest. They had diminished from the previous June 22, 2017 when the ABIs on the right were 1.07 and on the left 0.41. Currently the left ABIs for the DP and PT are 0.4 and 0.45. That was unchanged from her previous endovascular intervention. On her presentation to the office she was on both aspirin and clopidogrel. And as of February 10, 2018 her BUN was 25 and creatinine 1.2 with a GFR of 43. Her total cholesterol at that time was 288 and triglycerides 520. She had had a 2-3-day history of acute chest tightness and respiratory concerns and so she was referred to medicine to assist with that at that time. On this occasion she was admitted back on August 03, 2018 with melena hematochezia coffee-ground emesis. She had been taking Excedrin for her pain. Her hemoglobin on presentation was 10 and hematocrit 31.7. Her BUN was 68 creatinine 1.3. On her presentation she was felt to have acute blood loss anemia stage III chronic renal failure heart failure hypertension as well as a permanent pacemaker peripheral arterial occlusive disease hypothyroidism and parathyroid tumor. Calcium level checks over the past several days include a 9.2 on July 27, 2018 and a high upon her admission 08/03/2018 at 9.9. There were concerns recently about a right hand infection. There was questionable whether this is related to a pulse oximeter. But the patient has erythema and swelling of the right third and fourth digits. On August 04, [address] Bazan she underwent an upper endoscopy. That showed an oozing cratered duodenal ulcer with clot. That was injected with epinephrine. She had a repeat examination the following day August 05, 2018. The duodenal ulcer at that time was not bleeding. Her hemoglobin currently appears stable at 9. She is received a total of 3 units of blood transfusion. She is currently off of all of her anticoagulation Past Medical History Past Medical History (Chronic [...] cancer Hypertension History Items: No pertinent history Patient Problems: Active and Suspected Problems (Last Reviewed 08/03/18 @ 07:33 by Messi Hendricks MD) Acute blood loss anemia (Acute) Foot pain, right (Acute) - Physical Exam General: Alert, Cooperative, No apparent distress Cardiovascular: Regular rate, Regular Rhythm, - - Bilateral femorals are 3+. Bilateral popliteals not palpable. Bilateral DP and PT pulses are not palpable but they are dopplerable. Extremities: - - The right foot is mildly hyperemic. It is warm to touch. There is mildly diminished capillary refill. She is exquisitely tender to even light touch. There is some mild erythema of the first metatarsal phalangeal joint. She is tender on the plantar surface. She is tender to palpation of the right posterior calf. The left foot is slightly more pale and cooler than the right. The left foot is nontender. There is less capillary refill on the left than on the right The right hand demonstrates mild erythema and nonspecific swelling of the right third and fourth digits Vital Signs Temp Pulse Resp BP Pulse Ox 97.6 F L 60 16 127/55 H 95 08/11/18 04:10 08/11/18 04:10 08/11/18 04:10 08/11/18 04:10 08/11/18 04:10 Oxygen Flow Rate (L/min) 2 Oxygen Delivery Method Room Air Weight: 118 lb 13.266 oz Body Mass Index (BMI) 21.9 Intake and Output for Last 24 Hours Intake Total 1033 / 1033 379 / 379 Output Total 1500 / 1500 400 / 400 200 / 200 Balance -467 / -467 -400 / -400 179 / 179 Microbiology Past 72 Hours 08/08/18 05:10 Blood Culture - Preliminary Blood Culture (Wb) - Right Forearm No growth in 48 hours. 08/08/18 05:08 Blood Culture - Preliminary Laboratory Tests Past 24 Hrs WBC 12.2 H Assessment/Plan All Active Problems (Last Reviewed 08/03/18 @ 07:33 by Messi Hendricks MD) Acute blood loss anemia (Acute) Foot pain, right (Acute) Respiratory abnormality (Acute) CAP (community acquired pneumonia) (Acute) Severe sepsis (Acute) Peripheral vascular disease (Acute) Although this patient has known bilateral lower extremity multiside minimal peripheral vascular occlusive disease in the infrageniculate position I do not believe that her current right foot pain and right calf pain and right hand digit problems are related to peripheral vascular disease. I suspect that this is a systemic inflammatory process. Etiology to that is not clear. She has history of a possible parathyroid tumor but I am not seeing significant hypercalcemia. Do not know whether in the right foot this could be symptoms of gout. Not clear whether this is other rheumatologic condition. The patient is at risk for vascular intervention secondary to her chronic renal insufficiency and her recent upper GI bleed with duodenal ulcer placing anticoagulation and antiplatelet agents at significant risk. The degree of pain that she has in the right foot and the location of the pain and the right calf focal tenderness suggest other etiology. If anything the right foot is clearly more warm than the left. There appears to be a hyperemic inflammatory response. I am not recommending vascular intervention at this setting but rather investigation for potential other etiology. I appreciate the opportunity of assisting with her surgical care I will obtain a sed rate and uric acid. Maury Mg M.D., F.A.C.S. 08/11/18 1444 <Electronically signed by Maury Mg MD> Date Maury Mg MD Cosigner Signature (if applicable): Date CC: Demar Schwartz MD; Michelle Hull DO; Mariaa Mg III, MD; Ciera Bazan MD Signed HH, HEMOGLOBIN AND Collected: 08/11/2018 Status: F Source: [place]EMATOCR[place] 2:35 PM [facility] REPOSITORY TYPE CODE TESTS RESULT OUT OF RANGE REFERENCE UNITS LAB L100.1300 12.0-15.0 g/dl Low HGB 8.0 LAB L100.1400 37-47 % Low HCT 25.4 Performed By: #### L100.0600 #### [facility] [address] [place], [address] DIGOXIN LEVEL Collected: 08/11/2018 Status: F Source: [place] 11:20 AM [facility] TYPE CODE TESTS RESULT OUT OF RANGE REFERENCE UNITS LAB L501.7510 0.80-2.00 ng/mL High alert DIG 2.43 Result Comment: Critical Result(s) Called at: 12:44:33 08/11/2018 by: Marti Thomas RN ([email or web address]) Digoxin concentrations greater than 2.00 ng/mL are potentially toxic. Performed By: #### L501.7510 #### [facility] [address] [place], [address] HH, HEMOGLOBIN AND Collected: 08/11/2018 Status: F Source: [place] HEMATOCR[place] 9:33 AM [facility] TYPE CODE TESTS RESULT OUT OF RANGE REFERENCE UNITS LAB L100.1300 12.0-15.0 g/dl Low HGB 8.6 LAB L100.1400 37-47 % Low HCT 27.1 Performed By: #### L100.0600 #### [facility] [address] [place], [address] BASIC METABOLIC Collected: 08/11/2018 Status: F Source: [place] PROFILE (BMP) 6:10 AM [facility] TYPE CODE TESTS RESULT OUT OF RANGE REFERENCE UNITS LAB L501.0100 74-106 mg/dL High GLU 107 Result Comment: Fasting Glucose result from 100 to 125 mg/dL suggests IMPAIRED HOMEOSTASIS per A.D.A. criteria. Please note revised GLUCOSE reference range effective 2017. LAB L501.1000 7-18 mg/dL High BUN 41 LAB L501.1100 0.55-1.02 mg/dL High CREAT,SERUM 1.92 Result Comment: The validity of the calculated GFR AND GFRAA in patients over 70 years has not been determined. Clinical correlation is essential. LAB L501.1110 >60 mL/min Low EST GFR 27 Result Comment: Non- GFR Calc LAB L501.1115 >60 mL/min Low EST GFR - AA 32 Result Comment: GFR Calc LAB L501.1255 ml/min Normal Estimated CRCL 17.34 LAB L501.1300 10-20 RATIO High BUN/CRE 21.4 LAB L501.2200 8.5-10 mg/dL Normal .1 CA 9.0 LAB L501.5300 136-14 mmol/L Normal 5 NA 136 LAB L501.5600 3.5-5. mmol/L Normal 1 K 4.2 Result Comment: Slight Hemolysis, Result may be falsely increased. LAB L501.5900 98-107 mmol/L Normal CL 98 LAB L501.6100 21.0-32.0 mmol/L Normal CO2 26.0 LAB L501.6200 5-15 Normal GAP 12 Performed By: #### L500.2500 #### [facility] [address] [place], [place], [address] CBC W/DIFF, AUTOMATED Collected: 08/11/2018 Status: F Source: [place] 6:10 AM [facility] TYPE CODE TESTS RESULT OUT OF RANGE REFERENCE UNITS LAB L100.1000 4.4-11.0 K/mm3 Normal WBC 10.9 LAB L100.1200 4.2-5.4 M/mm3 Low RBC 2.72 LAB L100.1300 12.0-15.0 g/dl Low HGB 8.3 LAB L100.1400 37-47 % Low HCT 27.2 LAB L100.1500 81-99 fL High MCV 100.0 LAB L100.1600 27.0-32.0 pg Normal MCH 30.5 LAB L100.1700 32-36 g/gl Low MCHC 30.5 LAB L100.1810 11.6-14.6 % High RDW CV 15.9 LAB L100.1820 35.1-43.9 fl High RDW SD 55.1 LAB L100.1900 150-450 K/mm3 Normal PLT 276 LAB L100.2000 6.2-12.0 fl Normal MPV 10.8 LAB L100.2100 47-70 % High NEUT% 79.3 LAB L100.2200 19-41 % Low LY% 9.5 LAB L100.2300 0-10 % High MONO% 10.5 LAB L100.2400 0-5 % Normal EO% 0.3 LAB L100.2500 0-1 % Normal BASO% 0.2 LAB L100.2550 0.0-0.9 % Normal IM GRAN % 0.200 Result Comment: IG% - Immature Granulocytes (promyelocytes, myelocytes and metamyelocytes) > 1% indicates that a LEFT SHIFT is Present. LAB L100.2620 2.0-7.7 X10 3/uL High Absolute Neut 8.7 LAB L100.2720 0.83-4.51 X10 3/ul Normal Absolute Lymph 1.04 Performed By: #### L100.0100, L101.9900 #### [facility] [address] [place], [address] ERYTHROCYTE SED RATE Collected: 08/11/2018 Status: F Source: [place] 6:10 AM [facility] TYPE CODE TESTS RESULT OUT OF RANGE REFERENCE UNITS LAB L102.0000 0-30 mm/hr High SED RATE 47 Performed By: #### L100.0100, L101.9900 #### [facility] [address] [facility] [place], [place], [id number] URIC ACID Collected: 08/11/2018 Status: F Source: [place] 6:10 AM [facility] TYPE CODE TESTS RESULT OUT OF RANGE REFERENCE UNITS LAB L501.1400 2.6-6.0 mg/dL High URIC 9.9 Result Comment: The drugs N-Acetylcysteine and Metamizole may falsely depress this assay. Performed By: #### L501.1400 #### [facility] [address] [place], [address] CBC W/DIFF, AUTOMATED Collected: 08/10/2018 Status: F Source: [place] 5:28 AM [facility] TYPE CODE TESTS RESULT OUT OF RANGE REFERENCE UNITS LAB L100.1000 4.4-11.0 K/mm3 High WBC 12.2 LAB L100.1200 4.2-5.4 M/mm3 Low RBC 2.91 LAB L100.1300 12.0-15.0 g/dl Low HGB 9.0 LAB L100.1400 37-47 % Low HCT 29.4 LAB L100.1500 81-99 fL High MCV 101.0 LAB L100.1600 27.0-32.0 pg Normal MCH 30.9 LAB L100.1700 32-36 g/gl Low MCHC 30.6 LAB L100.1810 11.6-14.6 % High RDW CV 16.7 LAB L100.1820 35.1-43.9 fl High RDW SD 59.7 LAB L100.1900 150-450 K/mm3 Normal PLT 246 LAB L100.2000 6.2-12.0 fl Normal MPV 9.9 LAB L100.2100 47-70 % High NEUT% 81.9 LAB L100.2200 19-41 % Low LY% 6.0 LAB L100.2300 0-10 % High MONO% 11.5 LAB L100.2400 0-5 % Normal EO% 0.2 LAB L100.2500 0-1 % Normal BASO% 0.2 LAB L100.2550 0.0-0.9 % Normal IM GRAN % 0.200 Result Comment: IG% - Immature Granulocytes (promyelocytes, myelocytes and metamyelocytes) > 1% indicates that a LEFT SHIFT is Present. LAB L100.2620 2.0-7.7 X10 3/uL High Absolute Neut 10.0 LAB L100.2720 0.83-4.51 X10 3/ul Low Absolute Lymph 0.73 Performed By: #### L100.0100 #### [facility] [address] [address], [address] BASIC METABOLIC Collected: 08/10/2018 Status: F Source: [place] PROFILE (BMP) 5:28 AM [facility] TYPE CODE TESTS RESULT OUT OF RANGE REFERENCE UNITS LAB L501.0100 74-106 mg/dL High GLU 120 Result Comment: Fasting Glucose result from 100 to 125 mg/dL suggests IMPAIRED HOMEOSTASIS per A.D.A. criteria. Please note revised GLUCOSE reference range effective 2017. LAB L501.1000 7-18 mg/dL High BUN 27 LAB L501.1100 0.55-1.02 mg/dL High CREAT,SERUM 1.71 Result Comment: The validity of the calculated GFR AND GFRAA in patients over 70 years has not been determined. Clinical correlation is essential. LAB L501.1110 >60 mL/min Low EST GFR 30 Result Comment: Non- GFR Calc LAB L501.1115 >60 mL/min Low EST GFR - AA 37 Result Comment: GFR Calc LAB L501.1255 ml/min Normal Estimated CRCL 19.47 LAB L501.1300 10-20 RATIO Normal BUN/CRE 15.8 LAB L501.2200 8.5-10 mg/dL Normal .1 CA 9.0 LAB L501.5300 136-14 mmol/L Low 5 NA 134 LAB L501.5600 3.5-5. mmol/L Normal 1 K 3.9 LAB L501.5900 98-107 mmol/L Low CL 95 LAB L501.6100 21.0-3 mmol/L Normal 2.0 CO2 30.0 LAB L501.6200 5-15 Normal GAP 9 Performed By: #### L500.2500, L501.2300 #### [facility] [address] [place], [address] PHOSPHORUS Collected: 08/10/2018 Status: F Source: [place] 5:28 AM [facility] TYPE CODE TESTS RESULT OUT OF RANGE REFERENCE UNITS LAB L501.2300 2.5-4.9 mg/dL Normal PHOS 3.3 Performed By: #### L500.2500, L501.2300 #### [facility] [address] [place], [address] CPK TOTAL, CREATINE Collected: 08/10/2018 Status: F Source: [place] KINASE 5:28 AM [facility] TYPE CODE TESTS RESULT OUT OF RANGE REFERENCE UNITS LAB L501.3620 26-192 U/L Normal CPK TOTAL 33 Performed By: #### L501.3620, L501.4100 #### [facility] [address] [facility] [place], [place], [address] AST(SGOT) Collected: 08/10/2018 Status: F Source: [place] 5:28 AM [facility] TYPE CODE TESTS RESULT OUT OF RANGE REFERENCE UNITS LAB L501.4100 15-37 U/L Normal AST 15 Result Comment: Slight Hemolysis, Result may be falsely increased. Performed By: #### L501.3620, L501.4100 #### [facility] [address] [place], [place], [address] BASIC METABOLIC Collected: 08/09/2018 Status: F Source: [place] PROFILE (BMP) 5:30 AM [facility] TYPE CODE TESTS RESULT OUT OF [...] GAP 9 Performed By: #### L500.2500 #### [facility] [address] [place], [place], [address] URINALYSIS, COMPLETE Collected: 08/08/2018 Status: F Source: [place] 6:00 PM [facility] Order Comment: How was Urine Obtained? [...] URINE SEEN Performed By: #### L400.0001 #### [facility] [address] [place], [address] Observed: 08/08/2018 Status: F Source: [place] CULTURE, URINE 6:00 PM [facility] Urine Culture Culture exhibits no growth. Performed By: #### M100.0650 #### [facility] [address] [place], [address] HAND MIN 3 VIEWS Observed: 08/08/2018 Status: F Source: [place] 12:04 PM [facility] Imaging Services [address] [place] [address] Hand Min 3 Views MR#: [id number] Acct: [id number] Name: LI GRIFFITH Rep #: [id number] : 1935 F 82 From: Ha Collazo MD PCP: Mariaa Mg III, MD Status: ADM IN Study: Hand Min 3 Views Date of Exam: 08/08/18 Exam# [id number] Ordering Dr: Ino Gilliam DO STUDY: X-RAY [...] Service support , CC: Lara Gilliam; Mariaa Mg III, MD [employer] Consultant: Signed Observed: 08/08/2018 Status: F Source: [place] CULTURE, BLOOD (WB) 5:10 AM [facility] Has pt arrived? Y BC No growth in 5 days. Performed By: #### M200.1000 #### [facility] [address] [place], [address] CBC-COMPLETE BLOOD CNT Collected: 08/08/2018 Status: F Source: [place] NO DIFF 5:08 AM [facility] TYPE CODE TESTS RESULT OUT OF [...] MPV 10.6 Performed By: #### L100.0500 #### [facility] [address] [place], [address] BASIC METABOLIC Collected: 08/08/2018 Status: F Source: [place] PROFILE (BMP) 5:08 AM [facility] TYPE CODE TESTS RESULT OUT OF [...] 8 Performed By: #### L500.2500, L501.2300 #### [facility] [address] [place], [address] PHOSPHORUS Collected: 08/08/2018 Status: F Source: [place] 5:08 AM [facility] TYPE CODE TESTS RESULT OUT OF RANGE REFERENCE UNITS LAB L501.2300 2.5-4.9 mg/dL Normal PHOS 2.9 Performed By: #### L500.2500, L501.2300 #### [facility] [address] [place], [address] Observed: 08/08/2018 Status: F Source: [place] CULTURE, BLOOD (WB) 5:08 AM [facility] Has pt arrived? Y BC No growth in 5 days. Performed By: #### M200.1000 #### [facility] [address] [place], [address] CHEST 1 VIEW Observed: 08/08/2018 Status: F Source: [place]ZZ[place] (PORTABLE) 4:29 AM [facility] Imaging Services [address] [place] [address] Chest 1 View (Portable) MR#: [id number] Acct: [id number] Name: LUCILA GRIFFITHPedro Willingham Rep #: [id number] : 1935 F 82 From: Michael Abebe PCP: Mariaa Mg III, MD Status: ADM IN Study: Chest 1 View (Portable) Date of Exam: 08/08/18 Exam# [id number] Ordering Dr: Messi Hendricks MD STUDY: X-RAY [...] EST , Service support , CC: Mariaa Mg III, MD; Messi Hendricks MD [employer] Consultant: Signed VENOUS DUPLEX LOWER Observed: 08/07/2018 Status: F Source: [place] EXTREMITY 4:42 PM [facility] Cardiovascular Services [address] [place] [address] Venous Duplex US - Anirudh Extrem 08/07/18 1327 MR#: [id number] Acct: [id number] Name: LI GRIFFITH Rep #: [id number] : 1935 82 From: Axel Sam MD Attending Dr: Lara Gilliam Status: ADM IN Ordering Dr: Ino Gilliam DO Date: 08/07/18 Location: [facility] Sex: F C Admitted: 08/03/18 Reason For [...] Ordering Physician: Lara Gilliam Referring Physician: LIA Mg M.D. Performed By: Samina Arellano RVT 08/07/18 1641 Date Axel Sam MD CC: Lara Gilliam; Mariaa Mg III, MD Date Dictated: 08/07/18 1327 Date Transcribed: 08/07/18 1641 [employer] Consultant: Signed DIGOXIN LEVEL Collected: 08/07/2018 Status: F Source: [place] 1:05 PM [facility] Order Comment: Comments: OK to use the AM blood TYPE CODE TESTS RESULT OUT OF RANGE REFERENCE UNITS LAB L501.7510 0.80-2.00 ng/mL Low DIG 0.27 Performed By: #### L501.7510 #### [facility] [address] [place], [address] CBC-COMPLETE BLOOD CNT Collected: 08/07/2018 Status: F Source: [place] NO DIFF 5:45 AM [facility] TYPE CODE TESTS RESULT OUT OF [...] MPV 10.7 Performed By: #### L100.0500 #### [facility] [address] [place], [address] BASIC METABOLIC Collected: 08/07/2018 Status: F Source: [place] PROFILE (BMP) 5:45 AM [facility] TYPE CODE TESTS RESULT OUT OF [...] Performed By: #### L500.2500, L501.2300, L501.5200 #### [facility] [address] [place], [address] PHOSPHORUS Collected: 08/07/2018 Status: F Source: [place] 5:45 AM [facility] TYPE CODE TESTS RESULT OUT OF RANGE REFERENCE UNITS LAB L501.2300 2.5-4.9 mg/dL Low PHOS 1.9 Performed By: #### L500.2500, L501.2300, L501.5200 #### [facility] [address] [place], [address] MAGNESIUM Collected: 08/07/2018 Status: F Source: [place] 5:45 AM [facility] TYPE CODE TESTS RESULT OUT OF RANGE REFERENCE UNITS LAB L501.5200 1.6-2.6 mg/dL Normal MG 1.6 Performed By: #### L500.2500, L501.2300, L501.5200 #### [facility] [address] [place], [address] CONSULTATION Observed: 08/06/2018 Status: F Source: [place] 5:13 PM [facility] Medical Records Department [address] [place] [address] Consultation 08/03/18 1803 MR#: [id number] Acct: [id number] Name: LI GRIFFITH Rep #: [id number] : 1935 82 From: Ciera Bazan MD PCP: Mariaa Mg III, MD Status: ADM IN Y Location: [facility]3 [id number] - Consult Date of Consult: 08/03/18 - Reason for Consult CC: hematemesis, melena, anemia HPI: 82 y/o WF with multiple medical morbidities presents with anemia, initial Hgb was 10, now down to 7.2. Has had melena and hematemesis. Started yesterday afternoon, but persisted and she presented to [facility] ED. Denies abdominal pain, except for rare epigastric discomfort. Occasional right sided abdominal pain. Denies chronic heartburn, symptoms usually just once a month. Denies history of PUD. Has known right lower extremity arterial disease, seen by Dr. Mg for consideration of vascular procedure. Occasional takes excedrin for headaches. PAST MEDICAL HISTORY Actinic keratosis 08/13/2011 Cardiomyopathy ([facility]) 03/29/2014 CHF (congestive heart failure) ([facility]) 08/11/2010 Chronic kidney disease (CKD), stage III (moderate) ([facility]) 11/18/2016 Claudication ([facility]) 06/16/2017 Diverticulosis of colon (without [...] tablet by mouth once daily. With food. Gmbxwii-Foqjirqbqhixu-Bwbshbyc (EXCEDRIN) 250-250-65 mg per tablet Take 1 [...] can be on clear liquid diet. 08/06/18 3767 <Electronically signed by Ciera Bazan MD> Date Ciera Bazan MD Cosigner Signature (if applicable): Date CC: Demar Schwartz MD; Mariaa Mg III, MD; Ciera Bazan MD Signed CONSULTATION Observed: 08/06/2018 Status: F Source: [place] 5:48 AM [facility] Medical Records Department [address] [place] [address] Consultation 08/05/18 0832 MR#: [id number] Acct: [id number] Name: LI GRIFFITH Rep #: [id number] : 1935 82 From: Demar Schwartz MD PCP: Mariaa Mg III, MD Status: ADM IN Y Location: [...] medical history listed below, who presented to [facility] on 08/03/2018 secondary to nausea, vomiting and [...] ordered. Code Visit Inpatient E AND M: 63111 Init Hosp L3 08/06/18 0548 <Electronically signed by Demar Schwartz MD> Date Demar Schwarzt MD Cosigner Signature (if applicable): Date CC: Demar Schwartz MD; Mariaa Mg III, MD; Ciera Bazan MD Signed CBC W/DIFF, AUTOMATED Collected: 08/06/2018 Status: F Source: [place] 4:55 AM [facility] TYPE CODE TESTS RESULT OUT OF [...] Lymph 2.31 Performed By: #### L100.0100 #### [facility] [address] [place], [address] BASIC METABOLIC Collected: 08/06/2018 Status: F Source: [place] PROFILE ([facility]) 4:55 AM [facility] TYPE CODE TESTS RESULT OUT OF [...] GAP 6 Performed By: #### L500.2500 #### [facility] [address] [place], [address] OPERATIVE REPORT - Observed: 08/05/2018 Status: F Source: [place] ENDOSCOPY 3:24 PM [facility] Medical Records Department [address] [place] [address] Operative Report - Endoscopy MR#: [id number] Acct: [id number] Name: LI GRIFFITH Rep #: [id number] : 1935 82 From: Ciera Bazan MD PCP: Mariaa Mg III, MD Status: ADM IN Patient Name: [...] IV propofol under the supervision of an histopathology technician was determined to be medically necessary for [...] anti-inflammatory drugs. Procedure Code(s): --- Professional --- 49490, Esophagogastroduodenoscopy, flexible, transoral; diagnostic, including collection of specimen(s) by brushing or washing, when performed (separate procedure) Diagnosis Code(s): --- Professional --- K26.9, Duodenal ulcer, unspecified as acute or chronic, without hemorrhage or perforation K26.0, Acute duodenal ulcer with hemorrhage CPT copyright 2017 [employer]. All rights reserved. The codes documented in this report are preliminary and upon fashion coordinator review may be revised to meet current compliance requirements. MD Ciera Zimmerman MD 08/05/2018 3:23:51 PM This report has been signed electronically. Number of Addenda: 0 Note Initiated On: 08/05/2018 3:03 PM 08/05/18 1523 Date Ciera Bazan MD Cosigner Signature: Date (if indicated) CC: Demar Schwartz MD; Dontrell Reeder DO; Mariaa Mg III, MD; Ciera Bazan MD Date Dictated: 08/05/18 1503 Date Transcribed: [employer] Consultant: LW Signed HH, HEMOGLOBIN AND Collected: 08/05/2018 Status: F Source: [place] HEMATOCRIT 1:40 PM [facility] TYPE CODE TESTS RESULT OUT OF RANGE REFERENCE UNITS LAB L100.1300 12.0-15.0 g/dl Low HGB 9.6 LAB L100.1400 37-47 % Low HCT 30.4 Performed By: #### L100.0600 #### [facility] [address] [place] [address]. [place], [address] ECHOCARDIOGRAM COMPLETE Observed: 08/05/2018 Status: F Source: [place] 12:13 PM [facility] Cardiovascular Services [address] [place] [address] Echo Complete 12911 MR#: [id number] Acct: [id number] Name: LI GRIFFITH Rep #: [id number] : 1935 82 From: Mark Hernandez MD [...] Ordering Physician: Dontrell Reeder Referring Physician: LIA Mg M.D. Performed By: John Saha RCS 08/05/18 1212 Date Mark Hernandez MD CC: Dontrell Reeder DO; Mariaa Mg III, MD Date Dictated: 08/05/18911 Date Transcribed: 08/05/181211 [employer] Consultant: Signed 12 LEAD ELECTROCARDIOGRAM Observed: 08/05/2018 Status: F Source: [place] 9:11 AM [facility] Cardiovascular Services [address] [place] [address] 12 Lead EKG 08/03/18 0252 MR#: [id number] Acct: [id number] Name: LI GRIFFITH Rep #: [id number] : 1935 82 From: Mark Hernandez MD [...] Biventricular pacemaker detected Abnormal ECG Confirmed by DAVID YOU, MARK ([id number]), editor book MARIBEL VAZQUEZ ([id number]) on 08/05/2018 9:10:21 AM Referred By: OMARI Confirmed By:MARK HERNANDEZ MD 08/05/18 0910 Date Mark Hernandez MD CC: Susana Thomas MD; Dontrell Reeder DO; Mariaa Mg III, MD Signed CBC W/DIFF, AUTOMATED Collected: 08/05/2018 Status: F Source: [place] 4:40 AM [facility] TYPE CODE TESTS RESULT OUT OF [...] Lymph 1.47 Performed By: #### L100.0100 #### [facility] [address] [place], [place], [address] BASIC METABOLIC Collected: 08/05/2018 Status: F Source: [place] PROFILE (BMP) 4:40 AM [facility] TYPE CODE TESTS RESULT OUT OF [...] GAP 6 Performed By: #### L500.2500 #### [facility] [address] [place], [place], [address] TROPONIN-I Collected: 08/04/2018 Status: F Source: [place] 11:55 PM [facility] Order Comment: 'TROP' Serial specimen #1, #2, #3, or #4: 3 TYPE CODE TESTS RESULT OUT OF RANGE REFERENCE UNITS LAB L501.4010 <0.045 ng/mL High 0.251 TROPONIN-I Result Comment: TROPONIN-I EXPECTED VALUES <0.045 Negative 0.045 - 0.590 Consistent with Cardiac Damage > OR = 0.600 Critical Value Not every elevated troponin is indicative of HI. These values should be used with clinical judgement in examining the patient's clinical picture for diagnosis. To establish a diagnosis of HI versus myocardial injury, there must be a demonstrated rise and/or fall in the troponin values, in addition to ischemic symptoms, EKG changes, new regional wall motion abnormality, and/or angiographical evidence. PLEASE NOTE: REFERENCE RANGES EDITED 18 Performed By: #### L501.4010 #### [facility] [address] [place], [address] TROPONIN-I Collected: 08/04/2018 Status: F Source: [place] 9:07 PM [facility] Order Comment: 'TROP' Serial specimen #1, #2, #3, or #4: 2 TYPE CODE TESTS RESULT OUT OF RANGE REFERENCE UNITS LAB L501.4010 <0.045 ng/mL High 0.276 TROPONIN-I Result Comment: TROPONIN-I EXPECTED VALUES <0.045 Negative 0.045 - 0.590 Consistent with Cardiac Damage > OR = 0.600 Critical Value Not every elevated troponin is indicative of HI. These values should be used with clinical judgement in examining the patient's clinical picture for diagnosis. To establish a diagnosis of HI versus myocardial injury, there must be a demonstrated rise and/or fall in the troponin values, in addition to ischemic symptoms, EKG changes, new regional wall motion abnormality, and/or angiographical evidence. PLEASE NOTE: REFERENCE RANGES EDITED 18 Performed By: #### L501.4010 #### [facility] [address] [place], [address] TROPONIN-I Collected: 08/04/2018 Status: F Source: [place] 6:30 PM [facility] TYPE CODE TESTS RESULT OUT OF RANGE REFERENCE UNITS LAB L501.4010 <0.045 ng/mL High 0.278 TROPONIN-I Result Comment: TROPONIN-I EXPECTED VALUES <0.045 Negative 0.045 - 0.590 Consistent with Cardiac Damage > OR = 0.600 Critical Value Not every elevated troponin is indicative of HI. These values should be used with clinical judgement in examining the patient's clinical picture for diagnosis. To establish a diagnosis of HI versus myocardial injury, there must be a demonstrated rise and/or fall in the troponin values, in addition to ischemic symptoms, EKG changes, new regional wall motion abnormality, and/or angiographical evidence. PLEASE NOTE: REFERENCE RANGES EDITED 18 Performed By: #### L501.4010 #### [facility] [address] [place], [address] CBC W/DIFF, AUTOMATED Collected: 08/04/2018 Status: F Source: [place] 5:30 PM [facility] TYPE CODE TESTS RESULT OUT OF [...] Lymph 2.82 Performed By: #### L100.0100 #### [facility] [address] [place], [address] OPERATIVE REPORT - Observed: 08/04/2018 Status: F Source: [place] ENDOSCOPY 4:05 PM [facility] Medical Records Department [address] [facility] [place] [address] Operative Report - Endoscopy MR#: [id number] Acct: [id number] Name: LI GRIFFITH Rep #: [id number] : 1935 82 From: Ciera Bazan MD PCP: Mariaa Mg III, MD Status: ADM IN Patient Name: [...] anti-inflammatory drugs. Procedure Code(s): --- Professional --- 71626, Esophagogastroduodenoscopy, flexible, transoral; with control of bleeding, any method Diagnosis Code(s): --- Professional --- K26.4, Chronic or unspecified duodenal ulcer with hemorrhage D50.0, Iron deficiency anemia secondary to blood loss (chronic) CPT copyright 2017 [employer]. All rights reserved. The codes documented in this report are preliminary and upon fashion coordinator review may be revised to meet current compliance requirements. MD Ciera Zimmerman MD 08/04/2018 4:05:45 PM This report has been signed electronically. Number of Addenda: 0 Note Initiated On: 08/04/2018 3:27 PM 08/04/18 1605 Date Ciera Bazan MD Cosigner Signature: Date (if indicated) CC: Dontrell Reeder DO; Mariaa Mg III, MD; Ciera Bazan MD Date Dictated: 08/04/18 1527 Date Transcribed: [employer] Consultant: LW Signed HH, HEMOGLOBIN AND Collected: 08/04/2018 Status: F Source: [place] HEMATOCRIT 5:25 AM [facility] TYPE CODE TESTS RESULT OUT OF RANGE REFERENCE UNITS LAB L100.1300 12.0-15.0 g/dl Low HGB 8.2 LAB L100.1400 37-47 % Low HCT 25.9 Performed By: #### L100.0600 #### [facility] [address] [facility] [place], [place], [address] BASIC METABOLIC Collected: 08/04/2018 Status: F Source: [place] PROFILE (BMP) 5:25 AM [facility] TYPE CODE TESTS RESULT OUT OF [...] GAP 7 Performed By: #### L500.2500 #### [facility] [address] [place], [address] HH, HEMOGLOBIN AND Collected: 08/03/2018 Status: F Source: [place] HEMATOCRIT 10:00 PM [facility] TYPE CODE TESTS RESULT OUT OF RANGE REFERENCE UNITS LAB L100.1300 12.0-15.0 g/dl Low HGB 7.2 LAB L100.1400 37-47 % Low HCT 22.4 Performed By: #### L100.0600 #### [facility] [address] [place], [address] HISTORY AND PHYSICAL Observed: 08/03/2018 Status: F Source: [place] EXAM 7:45 AM [facility] Medical Records Department [address] [place] [address] History and Physical 08/03/18 0653 MR#: [id number] Acct: [id number] Name: LI GRIFFITH Rep #: [id number] : 1935 82 From: Messi Hendricks MD PCP: Mariaa Mg III, MD Status: ADM IN Y Location: [place] [address] Problem List (1) Acute blood loss anemia [...] bleed Code Visit Inpatient E AND M: 12410 Init Hosp L3 08/03/18 0745 <Electronically signed by Messi Hendricks MD> Date Messi Hendricks MD Cosigner Signature: Date (if applicable) CC: Mariaa Mg III, MD; Messi Hendricks MD Signed HH, HEMOGLOBIN AND Collected: 08/03/2018 Status: F Source: [place] HEMATOCRIT 7:25 AM [facility] Order Comment: Comments: every 8 hours beginning now TYPE CODE TESTS RESULT OUT OF RANGE REFERENCE UNITS LAB L100.1300 12.0-15.0 g/dl Low HGB 8.9 LAB L100.1400 37-47 % Low HCT 27.5 Performed By: #### L100.0600 #### [facility] [address] [place], [address] DIGOXIN LEVEL Collected: 08/03/2018 Status: F Source: [place] 7:25 AM [facility] TYPE CODE TESTS RESULT OUT OF RANGE REFERENCE UNITS LAB L501.7510 0.80-2.00 ng/mL Normal DIG 0.94 Performed By: #### L501.7510 #### [facility] [address] [facility] [place], [address] Observed: 08/03/2018 Status: F Source: [place] STOOL OCCULT BLOOD 6:40 AM [facility] REPOSITORY Order Date: 08/03/18 STOB iFOB Occult Blood Negative Performed By: #### M100.7900 #### [facility] [address] [place], [address] EMERGENCY DEPARTMENT Observed: 08/03/2018 Status: F Source: [place] SUMMARY 6:36 AM [facility] Medical Records Department [address] [place] [address] Emergency Department Summary 08/03/18 0249 MR#: [id number] Acct: [id number] Name: LI GRIFFITH Rep #: [id number] : 1935 82 From: Susana Thomas MD PCP: Mariaa Mg III, MD Status: ADM IN - ER [...] GI bleed This note was generated with [employer] dictation software. It may contain incorrect words, spelling, and punctuation that were not noted in review of the chart prior to signing ED Disposition - Plan for ED Patient: Chief Complaint: Nausea/Vomiting/Diarrhea Referrals: Mariaa Mg III, MD [Primary Care Provider] - What to do if you have Problems For any increased pain, shortness of breath, bleeding, nausea or vomiting, chest pain, or any unexpected problems, contact your Primary Care Provider. Call [facility] ([phone]) or report to the closest Emergency Room. Call 911 if necessary. 08/03/18 0636 <Electronically signed by Susana Thomas MD> Date Susana Thomas MD Cosigner Signature (If Indicated): Date CC: Mariaa Mg III, MD Observed: 08/03/2018 Status: F Source: [place] STOOL OCCULT BLOOD 2:52 AM [facility] REPOSITORY Order Date: 08/03/18 [facility] iFOB Occult Blood Negative Performed By: #### M100.7900 #### [facility] [address] [place], [address] ABDOMEN/PELVIS W IV CONT Observed: 08/03/2018 Status: F Source: [place] ONLY 2:47 AM [facility] REPOSITORY [facility] Imaging Services [address] [place] [address] Abdomen/Pelvis W IV Cont ONLY MR#: [id number] Acct: [id number] Name: LI GRIFFITH Rep #: [id number] : 1935 F 82 From: Brant Hatfield MD PCP: Mariaa Mg III, MD Status: REG ER Study: Abdomen/Pelvis W IV Cont ONLY Date of Exam: 08/03/18 Exam# [id number] Ordering Dr: Susana Thomas MD HISTORY: NAUSEA,VOMITING [...] support , CC: Susana Thomas MD; Mariaa Mg III, MD [employer] Consultant: Signed CBC W/DIFF, AUTOMATED Collected: 08/03/2018 Status: F Source: [place] 2:45 AM [facility] TYPE CODE TESTS RESULT OUT OF [...] Lymph 1.98 Performed By: #### L100.0100 #### [facility] [address] [place], [address] PROTHROMBIN TIME W/INR Collected: 08/03/2018 Status: F Source: [place] 2:45 AM [facility] TYPE CODE TESTS RESULT OUT OF RANGE REFERENCE UNITS LAB L300.4150 11.7-14.9 SECONDS Normal PROTIME 14.9 LAB L300.4200 Normal INR 1.2 Performed By: #### L300.3900, L300.4310 #### [facility] [address] [place], [address] PARTIAL THROMBOPLAST Collected: 08/03/2018 Status: F Source: [place] TIME 2:45 AM [facility] TYPE CODE TESTS RESULT OUT OF REFERENCE UNITS RANGE LAB L300.4310 24.1-36.2 Seconds Low PTT 23.1 Performed By: #### L300.3900, L300.4310 #### [facility] [address] [facility] [place], [address] BASIC METABOLIC Collected: 08/03/2018 Status: F Source: [place] PROFILE (BMP) 2:45 AM [facility] TYPE CODE TESTS RESULT OUT OF [...] 9 Performed By: #### L500.2500, L501.4010 #### [facility] [address] [place], [address] TROPONIN-I Collected: 08/03/2018 Status: F Source: [place] 2:45 AM [facility] TYPE CODE TESTS RESULT OUT OF RANGE REFERENCE UNITS LAB L501.4010 <0.045 ng/mL Normal 0.017 TROPONIN-I Result Comment: TROPONIN-I EXPECTED VALUES <0.045 Negative 0.045 - 0.590 Consistent with Cardiac Damage > OR = 0.600 Critical Value Not every elevated troponin is indicative of HI. These values should be used with clinical judgement in examining the patient's clinical picture for diagnosis. To establish a diagnosis of HI versus myocardial injury, there must be a demonstrated rise and/or fall in the troponin values, in addition to ischemic symptoms, EKG changes, new regional wall motion abnormality, and/or angiographical evidence. PLEASE NOTE: REFERENCE RANGES EDITED 18 Performed By: #### L500.2500, L501.4010 #### [facility] [address] [place], [address] TYPE AND SCREEN Collected: 08/03/2018 Status: F Source: [place] 2:45 AM [facility] Order Comment: CMV NEG? N Number [...] NEGATIVE Screen Performed By: #### B101.7450 #### [facility] [address] [place], [address] RC Collected: 08/03/2018 Status: F Source: [place] 2:45 AM [facility] TYPE CODE TESTS RESULT OUT OF REFERENCE UNITS RANGE LAB U100.0000 [id number] TRANSFUSED PRODUCT: T AND S with Crossmatch, Red Cells COUNT: 1 Performed By: #### U100.0000 #### [facility] - refer to report for specific site RC Collected: 08/03/2018 Status: F Source: [place] 2:45 AM [facility] TYPE CODE TESTS RESULT OUT OF REFERENCE UNITS RANGE LAB U100.0000 [id number] TRANSFUSED PRODUCT: T AND S with Crossmatch, Red Cells COUNT: 2 Performed By: #### U100.0000 #### [facility] - refer to report for specific site PROGRESS Observed: 08/02/2018 Status: COMPLETED Source: [place] 7:03 PM [facility] RE[facility]IT[facility] O ID: [id number] Author: Anoop Ocasio Service: (none) Author Type: Physician Type: Progress Notes Filed: 08/02/2018 7:19 PM Note Text: Thank you for an Endocrinology E-Consult for your 82 year old female patient, Li Griffith for evaluation/treatment of hyperparathyroidism. ? Your clinical question: ?previous endo consult recommended surgery for parathyroid adenoma, but patient insists that she was told by truck dispatcher that she is not a surgical candidate. [...] METABOLIC PANL Collected: 08/02/2018 Status: F Source: [place] 10:[address] [facility] [place] REPOSITORY TYPE CODE TESTS RESULT OUT OF REFERENCE UNITS RANGE LAB GLU 74-99 mg/dL High Glucose 106 Result Comment: The [place] Diabetes Association (ADA) provides guidance for cutoff [...] Standards of Medical Care in Diabetes 2016, [place] Diabetes Association. Diabetes Care. 2016.39(Suppl 1). LAB [...] By: #### BMP, TSH, VITD, PTHI #### [facility] [address] [address] TSH Collected: 08/02/2018 Status: F Source: [place] 10:48 AM [facility] RE[facility] TYPE CODE TESTS RESULT OUT OF RANGE REFERENCE UNITS LAB TSH 0.400-5.500 uU/mL TSH 4.010 Performed By: #### BMP, TSH, VITD, PTHI #### [facility] [address] [place], [place] [address] VITAMIN D 25 HYDROXY Collected: 08/02/2018 Status: F Source: [place] 10:48 AM [facility] REPOS[facility] TYPE CODE TESTS RESULT OUT OF REFERENCE UNITS RANGE LAB VITD 31.0-80.0 ng/mL Vitamin D 25 42.5 Hydroxy Result Comment: Classification of 25 [place] Vitamin D status: Insufficiency/Moderate Deficiency: < or = 30 ng/mL Sufficiency/Optimal Levels: 31 to 80 ng/mL Toxicity: > 100 ng/mL Test performed by chemiluminescent immunoassay. Performed By: #### BMP, TSH, VITD, PTHI #### [facility] [address] [place], [place] [address] PTH, INTACT Collected: 08/02/2018 Status: F Source: [place] 10:48 AM [facility] REPOSITORY TYPE CODE TESTS RESULT OUT OF REFERENCE UNITS RANGE LAB PTH 15-65 pg/mL High PTH, Intact 112 Performed By: #### BMP, TSH, VITD, PTHI #### [facility] [address] [place], [place] [address] PROGRESS Observed: 07/21/2018 Status: COMPLETED Source: [place] 1:54 PM [facility] RE[facility] HNO ID: [id number] Author: Anoop Ocasio Service: (none) Author Type: [...] I could not locate pathology report in [facility] (outside study?) Recommendations: 1. Obtain lumbar spine [...] VISIT REPORT Observed: 07/20/2018 Status: F Source: [place] 6:47 PM [facility] [address] [place] [address]. [address] [place] [address] OFFICE VISIT Date of Service: 07/20/18 MR#: [id number] Acct: [id number] Name: LI GRIFFITH Rep #: [id number] : 1935 Provider: Maury Mg MD Age/Sex: 82/F Location: [facility] Status: Signed Intake Vital Signs07/20/18 Height 5 ft 2 in 07/20/18 Weight: 120 lb 5 oz 07/20/18 Body Mass Index (BMI) 21.9 07/20/18 Blood Pressure 171/78 H Intake Visit Reasons: PVD, U/S @ CC Chief Complaint: PAD, hx APLL Language Teacher Required: No Is patient in pain?: Yes [...] by her primary care physician Dr. Mariaa Mg, III and a written consult recommendations will [...] feet. She claims that this is constant 24/. She complains of calf pain bilaterally worse [...] As of July 06, 2018 at the [facility] she had PVRs. It is pertinent that [...] ulcerations noted bilaterally. Diminished capillary refill bilaterally. [place] coloration bilaterally. Dependent rubor and elevation pallor. [...] with her primary care physician Dr. Mariaa Mg III. I suggested to the patient and [...] assisting with her surgical care CC: Dr. LIA Abdul M.D., F.A.C.S. Orders Orders: Coding Level of Care Code Detailed, Low Diagnoses Peripheral arterial disease I73.9 Respiratory abnormality J98.9 07/20/18 1847 <Electronically signed by Maury Mg MD> Date Maury Mg MD Cosigner Signature: Date (if applicable) CC: Mariaa Mg III, MD CHEST PA AND LATERAL Observed: 07/20/2018 Status: F Source: [place] 2:27 PM [facility] [address] [place] [address] Chest PA and Lateral MR#: [id number] Acct: [id number] Name: LI GRIFFITH Rep #: [id number] : 1935 F 82 From: Blue Sarmiento MD PCP: Mariaa Mg III, MD Status: REG CLI Study: Chest PA and Lateral Date of Exam: 07/20/18 Exam# [id number] Ordering Dr: Maury Mg MD STUDY: X-RAY CHEST REASON FOR EXAM: [...] EST , Service support , CC: Mariaa Mg III, MD; Maury Mg MD Polymer Materials Consultant: Signed PROGRESS Observed: 07/07/2018 Status: COMPLETED Source: [place] 1:15 PM [facility] RE[facility] HNO ID: [id number] Author: Mariaa Mg III Service: (none) Author Type: Physician Type: Progress Notes Filed: 07/07/2018 1:15 PM Note Text: Li, The vascular studies do demonstrate worsening of blood flow through the right lower extremity. The circulation in the left lower extremity seems to be unchanged from previous testing. I recommend evaluation by a vascular surgeon. You may return to Dr. Maury Mg who has worked with you in the past if you desire. Mariaa Mg III, MD, FAAFP CNOV Observed: 07/06/2018 Status: COMPLETED Source: [place] 10:00 AM [facility] RE[facility] Office Visit (VSLWST) LI GRIFFITH ([id number]) 1935 F NFR Date Time Provider Department 07/06/18 10:00 AM [facility] VSLWST During your visit today, we recorded the following information about you: Mariaa Mg III MD 07/07/2018 1:15 PM Signed Li, The vascular studies do demonstrate worsening of blood flow through the right lower extremity. The circulation in the left lower extremity seems to be unchanged from previous testing. I recommend evaluation by a vascular surgeon. You may return to Dr. Maury Mg who has worked with you in the past if you desire. Mariaa Mg III, MD, FAAFP Referring Provider: MARIAA MG III [[id number]] Allergies As of Date: 07/06/2018 Noted Allergy Reaction ACCUPRIL (QUINAPRIL HCL) 04/14/2005 2 - Rash ARTHROTEC 50 (DICLOFENAC-MISOPROS*04/14/2005 8 - GI Upset FOSAMAX (ALENDRONATE SODIUM) 01/31/2007 5 - Intolerance Comments: MUSCLE WEAKNESS LIPITOR (ATORVASTATIN CALCIUM) 06/29/2012 14 - Other: See Comments Comments: Muscle achiness MACRODANTIN (NITROFURANTOIN) 04/14/2005 2 - Rash PERCOCET (OXYCODONE-ACETAMINOPHEN)04/14/2005 5 - Intolerance Comments: off balance, elevated blood pressure XLXMTZG-ABP-LFM REDUCTASE INHIBIT*08/30/2015 17 - Myalgia Date Reviewed: 05/12/2018 Reviewed by: Caterina Lara LPN - Fully Assessed Visit Diagnosis:PAD (peripheral artery disease) ([facility]) [I73.9] Order(s):PVR LEG ANIRUDH V[facility] LAB [[id number]] Order #: [id number]. #:[id number] Prescriptions as of 07/06/2018 Sig: LORAZEPAM 0.5 [...] Take 1 tablet by mouth once d* SSGPQTT-THUVOLIWIANGR-GZPZQHD* Take 1 tablet by mouth every * [...] [I73.9] INVALID FOR* Encounter Status:Closed by MARIAA MG III, MD on 07/08/18 PROGRESS Observed: 06/02/2018 Status: COMPLETED Source: [place] 7:09 PM [facility] RE[facility] HNO ID: [id number] Author: Mariaa Mg III Service: (none) Author Type: Physician Type: Progress Notes Filed: 06/02/2018 7:09 PM Note Text: Li, The PTH level is coming down a bit, but the calcium level is a little high. The vitamin D level is low normal and is lower than before. I recommend that you take iwoj-jme-jpjmiet vitamin D 2000 units daily. Recheck labs in 2 months. Maraia Mg III, MD, FAAFP PTH, INTACT Collected: 06/01/2018 Status: F Source: [place] 11:22 AM [facility] RE[facility] TYPE CODE TESTS RESULT OUT OF REFERENCE UNITS RANGE LAB PTH 15-65 pg/mL High PTH, Intact 97 Performed By: #### PTHI, CMP, LIPB, VITD #### [facility] [address] [place] [address] COMP METABOLIC PANEL Collected: 06/01/2018 Status: F Source: [place] 11:22 AM [facility] RE[facility] TYPE CODE TESTS RESULT OUT OF REFERENCE UNITS RANGE LAB TP 6.3-8.0 g/dL Protein, Total 7.0 LAB ALB 3.9-4.9 g/dL Albumin 4.2 LAB CA 8.5-10.2 mg/dL Calcium, High Total 10.7 LAB TBIL 0.2-1.3 mg/dL Bilirubin, Total 0.6 LAB ALKP 34-123 U/L Alkaline Phosphatase 90 LAB AST 13-35 U/L AST 21 LAB GLU 74-99 mg/dL Glucose 96 Result Comment: The [place] Diabetes Association (ADA) provides guidance for cutoff [...] Standards of Medical Care in Diabetes 2016, [place] Diabetes Association. Diabetes Care. 2016.39(Suppl 1). LAB [...] By: #### PTHI, CMP, LIPB, VITD #### [facility] [address] [place], [place] [address] LIPID PANEL, BASIC Collected: 06/01/2018 Status: F Source: [place] 11:[address] [facility] REPOSITORY TYPE CODE [...] Desk Reference: National Heart, Lung, and Blood [place]. National Institutes of Health. 2001: NIH Publication No. 01-3305. 2. An International Atherosclerosis Society position paper: global recommendations for the management of dyslipidemia: executive summary, Atherosclerosis. 2014: 232(2):410-413. Performed By: #### PTHI, CMP, LIPB, VITD #### [facility] [address] [place] [address] VITAMIN D 25 HYDROXY Collected: 06/01/2018 Status: F Source: [place] 11:22 AM [facility] RE[facility] TYPE CODE TESTS RESULT OUT OF REFERENCE UNITS RANGE LAB VITD 31.0-80.0 ng/mL Vitamin D 25 36.6 Hydroxy Result Comment: Classification of 25 [place] Vitamin D status: Insufficiency/Moderate Deficiency: < or = 30 ng/mL Sufficiency/Optimal Levels: 31 to 80 ng/mL Toxicity: > 100 ng/mL Test performed by chemiluminescent immunoassay. Performed By: #### PTHI, CMP, LIPB, VITD #### [facility] [address] [id number] CNCO Observed: 06/01/2018 Status: COMPLETED Source: [place] 12:00 AM [facility] RE[facility] Letter Text Izzy Department of Family Medicine [address] [id number] 06/01/2018 THIS IS A PRESCRIPTION FOR HANDICAPPED PARKING PERMIT Re: Li Griffith [address] [facility] [address] The above named person requires a disability parking placard for the following reasons: Cannot walk 200 ft. without stopping to rest Is severely limited in ability to walk due to arthritic condition DURATION: LIFETIME EXPIRATION: June 01, 2023 Sincerely, Mariaa Mg III, M.D. PROGRESS Observed: 05/28/2018 Status: COMPLETED Source: [place] 4:26 PM [facility] RE[facility] HNO ID: [id number] Author: Mariaa Mg III Service: (none) Author Type: Physician Type: [...] problem with a high dose supplement. Mariaa Mg III MD PROGRESS Observed: 05/26/2018 Status: COMPLETED Source: [place] 7:05 PM [facility] RE[facility] HNO ID: [id number] Author: Mariaa Mg III Service: (none) Author Type: Physician Type: Progress Notes Filed: 05/26/2018 7:05 PM Note Text: Good news?there is no evidence of the vein thrombosis. Mariaa Mg III, MD, FAAFP CNOV Observed: 05/26/2018 Status: COMPLETED Source: [place] 2:30 PM [facility] Office Visit (VSLWST) LI GRIFFITH ([id number]) 1935 F NFR Date Time Provider Department 05/26/18 2:30 PM [facility] During your visit today, we recorded the following information about you: Mariaa Mg III MD 05/26/2018 7:05 PM Signed Good news?there is no evidence of the vein thrombosis. Mariaa Mg III, MD, FAAFP Referring Provider: MARIAA MG III [[id number]] Allergies As of Date: 05/26/2018 Noted Allergy Reaction ACCUPRIL (QUINAPRIL HCL) 04/14/2005 2 - Rash ARTHROTEC 50 (DICLOFENAC-MISOPROS*04/14/2005 8 - GI Upset FOSAMAX (ALENDRONATE SODIUM) 01/31/2007 5 - Intolerance Comments: MUSCLE WEAKNESS LIPITOR (ATORVASTATIN CALCIUM) 06/29/2012 14 - Other: See Comments Comments: Muscle achiness MACRODANTIN (NITROFURANTOIN) 04/14/2005 2 - Rash PERCOCET (OXYCODONE-ACETAMINOPHEN)04/14/2005 5 - Intolerance Comments: off balance, elevated blood pressure STXLXPJ-FQV-MKH REDUCTASE INHIBIT*08/30/2015 17 - Myalgia Date Reviewed: 05/12/2018 Reviewed by: Caterina Lara LPN - Fully Assessed Visit Diagnosis:Pain of right lower extremity [M79.604] Order(s):US LEG VEIN DVT UNL VAS LAB [[id number]] Order #: [id number]. #:[id number] Prescriptions as of 05/26/2018 Sig: LOSARTAN 100 [...] Take 1 tablet by mouth once d* FSDNECD-HGYOAUOGOOGBD-EUJUIMO* Take 1 tablet by mouth every * [...] [I73.9] INVALID FOR* Encounter Status:Closed by MARIAA MG III, MD on 05/30/18 COMP METABOLIC PANEL Collected: 05/12/2018 Status: F Source: [place] 4:53 PM [facility] TYPE CODE TESTS RESULT OUT OF REFERENCE UNITS RANGE LAB TP 6.3-8.0 g/dL Protein, Total 7.2 LAB ALB 3.9-4.9 g/dL Albumin 4.1 LAB CA 8.5-10.2 mg/dL Calcium, Total 9.7 LAB TBIL 0.2-1.3 mg/dL Bilirubin, Total 0.4 LAB ALKP 32-117 U/L Alkaline Phosphatase 81 LAB AST 13-35 U/L AST 25 LAB GLU 74-99 mg/dL Glucose 91 Result Comment: The [place] Diabetes Association (ADA) provides guidance for cutoff [...] Standards of Medical Care in Diabetes 2016, [place] Diabetes Association. Diabetes Care. 2016.39(Suppl 1). LAB [...] GFR. Performed By: #### CMP, PTHI #### [facility] [address] [place], [place] [address] PTH, INTACT Collected: 05/12/2018 Status: F Source: [place] 4:[address] [facility] REPOSITORY TYPE CODE TESTS RESULT OUT OF REFERENCE UNITS RANGE LAB PTH 15-65 pg/mL High PTH, Intact 139 Performed By: #### CMP, PTHI #### [facility] [address] [place] [address] PROGRESS Observed: 05/12/2018 Status: COMPLETED Source: [place] 4:[address] [facility] [place] REPOSITORY O ID: [id number] Author: Mariaa Mg III Service: (none) Author Type: Physician Type: [...] Date - Actinic keratosis 08/13/2011 - Cardiomyopathy ([facility]) 03/29/2014 - CHF (congestive heart failure) ([facility]) 08/11/2010 - Chronic kidney disease (CKD), stage III (moderate) ([facility]) 11/18/2016 - Claudication ([facility]) 06/16/2017 - Diverticulosis of colon [...] tablet by mouth once daily. With food. Urgnfax-Niqwqiymmsxvl-Ghsurazi (EXCEDRIN) 250-250-65 mg per tablet Take 1 [...] visit?much reassurance. All questions answered LIA Castelan MD Observed: 05/12/2018 Status: COMPLETED Source: [place] 4:00 PM [facility] Office Visit (FAMPWS) LI GRIFFITH ([id number]) 1935 F NFR Date Time Provider Department 05/12/18 4:00 PM MARIAA MG III During your visit today, we recorded the following information about you: Temperature Pulse Respiration Blood pressure 98.5 degrees 62/minute 18/minute 138/82 Weight 54.6 kg Mariaa Mg III MD 05/12/2018 6:19 PM Signed SUBJECTIVE: [...] Date - Actinic keratosis 08/13/2011 - Cardiomyopathy ([facility]) 03/29/2014 - CHF (congestive heart failure) ([facility]) 08/11/2010 - Chronic kidney disease (CKD), stage III (moderate) ([facility]) 11/18/2016 - Claudication ([facility]) 06/16/2017 - Diverticulosis of colon [...] tablet by mouth once daily. With food. Elswegx-Bqgjuxhwyujiz-Zfsosseu (EXCEDRIN) 250-250-65 mg per tablet Take 1 [...] stay well hydrated same other medications Mariaa Mg III MD Referring Provider: SELF [200] Allergies [...] Intolerance Comments: off balance, elevated blood pressure NKTJBFU-CLL-RAV REDUCTASE INHIBIT*08/30/2015 17 - Myalgia Date Reviewed: 05/12/2018 Reviewed by: Caterina Lara LPN - Fully Assessed Reason for Visit: Recheck [92] Cmt: Medication review Primary Visit Diagnosis:Parathyroid adenoma [D35.1] Other Visit Diagnoses:Hyperparathyroidism (HCC) [E21.3] Hypercalcemia [E83.52] Claudication (HCC) [I73.9] PAD (peripheral artery disease) (HCC) [I73.9] Order(s):COMP METABOLIC PANEL [SQCMP] Order #: [id number] FUTURE PTH INTACT BLD [SQPTHI] Order #: [id number] FUTURE Prescriptions as of 05/12/2018 Sig: LORAZEPAM 0.5 MG TABLET Take 1 tablet by mouth at bed* CINACALCET 30 MG TABLET Take 1 tablet by mouth twice * FUROSEMIDE 20 MG TABLET Take 1 tablet by mouth once d* MELOXICAM 15 MG TABLET Take 1 tablet by mouth once d* UZSYPZK-WTOSHKTIEQMPX-IWWXVFY* Take 1 tablet by mouth every * [...] stay well hydrated same other medications Mariaa Mg III MD Encounter Status:Closed by MARIAA MG III, MD on 05/12/18 CNPN Observed: 04/11/2018 Status: COMPLETED Source: [place] 12:00 AM [facility] RE[facility] Telephone (FAMPWS) LI GRIFFITH ([id number]) 1935 F NFR Date Time Provider Department 04/11/18 [facility] MG III [facility] During your visit today, we recorded the following information about you: Ino Cat RN 04/11/2018 5:[address] Jose D Mg office phoned to report, doctor received and reviewed the parathyroid scan, and will not handle due to the location of the parathyroid adenoma- unable to do surgery there. He is recommending [facility] endocrinology. Mariaa Mg III MD 04/11/2018 8:31 PM Signed Staff please schedule--order for endocrinology entered LIA Castelan MD Psr 04/12/2018 8:16 AM Signed First attempt. No voicemail set up Vanessa Aguero Psr 04/14/2018 12:52 PM Signed Appt is scheduled for Endo Carmen Barrientos LPN 04/18/2018 2:11 PM Signed Noted. Thank you. Carmen Torres Ma 04/19/2018 9:49 AM Signed Patient's daughter Krystin stopped into office today stating that she was on her way to take her mother up to [place] , about 20 minutes away from the [employer] office when she received a call from Dr. Raymond's office stating that they did not know why they were coming in and cancelled her appointment. Advised patient that according to the notes in [facility], states patient was to see them due to overactive parathyroid and surgery was unable to be completed in [place] due to the location of tumor, therefore referred to Main. Patient's daughter Krystni states that mother will opt out of surgery and does not believe it is necessary due to her age and heart hx. Krystin wondering what next step will be. Please review and advise. Call Daughter Krystin at [phone] Allergies As of Date: 04/11/2018 Noted Allergy Reaction ACCUPRIL (QUINAPRIL HCL) 04/14/2005 2 - Rash ARTHROTEC 50 (DICLOFENAC-MISOPROS*04/14/2005 8 - GI Upset FOSAMAX (ALENDRONATE SODIUM) 01/31/2007 5 - Intolerance Comments: MUSCLE WEAKNESS LIPITOR (ATORVASTATIN CALCIUM) 06/29/2012 14 - Other: See Comments Comments: Muscle achiness MACRODANTIN (NITROFURANTOIN) 04/14/2005 2 - Rash PERCOCET (OXYCODONE-ACETAMINOPHEN)04/14/2005 5 - Intolerance Comments: off balance, elevated blood pressure TTITRGW-IFS-JMD REDUCTASE INHIBIT*08/30/2015 17 - Myalgia Date Reviewed: 03/11/2018 Reviewed by: Francine De Ma - Fully Assessed Reason for Visit: Parathyroid referral [Other] Primary Visit Diagnosis:Parathyroid adenoma [D35.1] Order(s):CONSULT TO ENDOCRINOLOGY [9007] Order #: [id number]: 1 Prescriptions as of 04/11/2018 Sig: LORAZEPAM 0.5 MG TABLET Take 1 tablet by mouth at bed* FUROSEMIDE 20 MG TABLET Take 1 tablet by mouth once d* MELOXICAM 15 MG TABLET Take 1 tablet by mouth once d* VSGZHBZ-ARCCKNSTXQWAI-EYOGFEZ* Take 1 tablet by mouth every * [...] [D35.1] INVALID FOR* Encounter Status:Closed by CARMEN BARRIENTOS LPN on 04/18/18 PROGRESS Observed: 04/08/2018 Status: COMPLETED Source: [place] 8:09 [facility] REPOSIT[facility] HNO ID: [id number] Author: Mariaa Mg III Service: (none) Author Type: Physician Type: Progress Notes Filed: 04/08/2018 8:09 AM Note Text: The parathyroid scan shows a benign tumor that is over producing parathyroid hormone. This can lead to excessive loss of calcium from your bones and to an increased risk for bone fracture. I recommend referral to Dr Vicky Mg or Dr Jones for possible surgical removal of the tumor. LIA Castelan MD PARATHYROID Observed: 04/05/2018 Status: F Source: [place] [id number] 7:00 AM [facility] [address] [address] Name: LI GRIFFITH Phys: MARIAA MG M.D. : [birth year] Age: 82 Sex: F Acct: [id number] Loc: [facility] Exam Date: 04/05/18 [facility] No.: [id number] Unit Number: [id number] Exam # Type/Exam [id number] NM / NM PARATHYROID [id number] PROCEDURE: Nuclear medicine parathyroid scan. HISTORY: Hyperparathyroidism [...] Professional interpretation provided by [facility], [place] on RAC-PC-60. Thank you for this referral. <<Signature on File>> Reported By: BRIANA NIÑO M.D. Signed In NovaPro By: BRIANA NIÑO M.D. << Signature on File>> Reported By: BRIANA NIÑO M.D. Signed By: BRIANA NIÑO M.D. Tests performed at: [address] [address] PROGRESS Observed: 03/11/2018 Status: COMPLETED Source: [place] 10:09 AM [facility] HNO ID: [id number] Author: Farzad Ochoa Service: (none) Author Type: Physician Type: Progress [...] tablet by mouth once daily. With food. Dghrtjg-Dqpvpgqjfsfxu-Sgudolkc (EXCEDRIN) 250-250-65 mg per tablet Take 1 [...] Intolerance off balance, elevated blood pressure - Zorbzdm-Oub-Qzq Red* Myalgia VITALS: BP 140/74 Pulse 72 [...] TRIAMCINOLONE ACETONIDE 0.1 % TOPICAL CREAM Farzad Ochoa MD CNOV Observed: 03/11/2018 Status: COMPLETED Source: [place] 10:00 AM [facility] Office Visit (WSTR) LI GRIFFITH ([id number]) 1935 F NFR Date Time Provider Department 03/11/18 10:00 AM FARZAD OCHOA During your visit today, we recorded the following information about you: Temperature Pulse Blood pressure Weight 98.5 degrees 72/minute 140/74 56.2 kg Farzad Ochoa MD 03/11/2018 10:34 AM Signed Patient presents [...] tablet by mouth once daily. With food. Kfdamlk-Xfujxfojdxoej-Nwcvdoby (EXCEDRIN) 250-250-65 mg per tablet Take 1 [...] Intolerance off balance, elevated blood pressure - Tevbvzr-Xnl-Yty Red* Myalgia VITALS: BP 140/74 Pulse 72 [...] TRIAMCINOLONE ACETONIDE 0.1 % TOPICAL CREAM Farzad Ochoa MD Referring Provider: SELF [200] Allergies As [...] Intolerance Comments: off balance, elevated blood pressure XHWMDXP-UFD-VTY REDUCTASE INHIBIT*08/30/2015 17 - Myalgia Date Reviewed: [...] Take 1 tablet by mouth once d* SHLCIFB-QQEGDQZYVWNMR-WSAPMXD* Take 1 tablet by mouth every * [...] rash/itching on legs. Encounter Status:Closed by FARZAD OCHOA MD on 03/11/18 PROGRESS Observed: 02/16/2018 Status: COMPLETED Source: [place] 6:31 PM [facility] HNO ID: [id number] Author: Mariaa Mg III Service: (none) Author Type: Physician Type: Progress Notes Filed: 02/16/2018 6:31 PM Note Text: I recommend a healthy diet and will recheck cholesterol labs in 3 months. Mariaa Mg III, MD, [facility] PROGRESS Observed: 02/16/2018 Status: COMPLETED Source: [place] 6:29 PM [facility] REPOSITORY HNO ID: [id number] Author: Mariaa Mg III Service: (none) Author Type: Physician Type: [...] will follow triglyceride labs over time. Mariaa Mg III MD BASIC METABOLIC PANL Collected: 02/10/2018 Status: F Source: [place] 12:32 PM [facility] REPOSITORY TYPE CODE TESTS RESULT OUT OF REFERENCE UNITS RANGE LAB GLU 74-99 mg/dL Glucose 96 Result Comment: The [place] Diabetes Association (ADA) provides guidance for cutoff [...] Standards of Medical Care in Diabetes 2016, [place] [employer]. Diabetes Care. 2016.39(Suppl 1). LAB [...] Performed By: #### BMP, LIPB, LDLDCT #### [facility] [address] [place] [id number] LIPID PANEL, BASIC Collected: 02/10/2018 Status: F Source: [place] 12:[address] [facility] [place] REPOSITORY TYPE CODE TESTS RESULT OUT OF [...] Desk Reference: National Heart, Lung, and Blood [place]. National Institutes of Health. 2001: NIH Publication No. 01-3305. 2. An International Atherosclerosis Society position paper: global recommendations for the management of dyslipidemia: executive summary, Atherosclerosis. 2014: 232(2):410-413. Performed By: #### BMP, LIPB, LDLDCT #### [facility] [address] [place], [place] [address] LDL-CHOL, DIRECT Collected: 02/10/2018 Status: F Source: [place] 12:32 PM [facility] REPOSITORY TYPE CODE TESTS [...] Performed By: #### BMP, LIPB, LDLDCT #### [facility] [address], [place] [id number] PTH, INTACT Collected: 02/10/2018 Status: F Source: [place] 12:[address] [facility] [place] REPOSITORY TYPE CODE TESTS RESULT OUT OF REFERENCE UNITS RANGE LAB PTH 15-65 pg/mL High PTH, Intact 71 Performed By: #### PTHI #### [facility] [employer] [address] [place], [place] [address] PROGRESS Observed: 02/10/2018 Status: COMPLETED Source: [place] 11:39 AM [facility] REPOSITORY HNO ID: [id number] Author: Mariaa Mg III Service: (none) Author Type: Physician Type: [...] wheelchair to get to office Dr Vicky Mg performed balloon angioplasty LLE 4. 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 hx of CHF--stable 6. hx of ischemic cardiomyopathy. stable. No chest pain, angina, COUGHLIN. s/p pacemaker doing well . 7. last fall struck in head with volleyball. Subsequently, hit in L head by basketball ~6 mos ago. 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 With food. Ejjqvvx-Wwodjdpdupbfh-Kltsreie (EXCEDRIN) 250-250-65 mg per tablet Take 1 [...] (HCC) 03/29/2014 - CHF (congestive heart failure) ([facility]) 08/11/2010 - Chronic kidney disease (CKD), stage III (moderate) 11/18/2016 - Claudication ([facility]) 06/16/2017 - Diverticulosis of colon [...] pacemaker 07/29/09 - COLONOSCOP W/ OR W/O [facility] SPE[facility] 06/05/10 - COLONOSCOP W/ OR W/O [facility] SPE[facility] Colonoscopy - EGD W/O OR W/BRUSH/WASH 05/09/2015 EGD - HEART SURGERY HX - MASTECTOMY 06/19/99 mrm left breast - PERC TRANSL COR ANGIO 03/23/07 Percutaneous Transluminal Coronary Angio Status - TOTAL ABDOM HYSTERECTOMY 2004 BRENDA,BSO FAMILY HISTORY Problem Relation Age of [...] anxiety or sleep labs as ordered Mariaa Mg III MD [facility] website checked and validated. All prescriptions have been APPROPRIATELY filled. No suspicious activity was identified.- 02/10/2018 by LIA Castelan MD, III MD CNOV Observed: 02/10/2018 Status: COMPLETED Source: [place] 11:00 AM [facility] REPOSITORY [facility] LI GRIFFITH ([id number]) 1935 F NFR Date Time Provider Department 02/10/18 11:00 AM MARIAA MG III During your visit today, we recorded the following information about you: Pulse Respiration Blood pressure Weight 60/minute 16/minute 149/70 54.9 kg Height 1.524 m Mariaa Mg III MD 02/10/2018 12:52 PM Signed SUBJECTIVE: [...] wheelchair to get to office Dr Vicky Mg performed balloon angioplasty LLE 4. 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 hx of CHF--stable 6. hx of ischemic cardiomyopathy. stable. No chest pain, angina, COUGHLIN. s/p pacemaker doing well . 7. last fall struck in head with volleyball. Subsequently, hit in L head by basketball ~6 mos ago. 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 With food. Mapxfko-Xgaicpbnsjmxg-Atvtguqt (EXCEDRIN) 250-250-65 mg per tablet Take 1 [...] Date - Actinic keratosis 08/13/2011 - Cardiomyopathy ([facility]) 03/29/2014 - CHF (congestive heart failure) ([facility]) 08/11/2010 - Chronic kidney disease (CKD), stage III (moderate) 11/18/2016 - Claudication ([facility]) 06/16/2017 - Diverticulosis of colon [...] pacemaker 07/29/09 - COLONOSCOP W/ OR W/O [facility] SPE[facility] 06/05/10 - COLONOSCOP W/ OR W/O [facility] SPE[facility] Colonoscopy - EGD W/O OR W/BRUSH/WASH [...] anxiety or sleep labs as ordered Mariaa Mg III MD [facility] website checked and validated. All prescriptions have [...] anxiety or sleep labs as ordered Mariaa Mg III MD Referring Provider: VERNON HARDING (PATIENT SAFETY SITTER) [[id number]] Allergies As of Date: 02/10/2018 Noted Allergy Reaction ACCUPRIL (QUINAPRIL HCL) 04/14/2005 2 - Rash ARTHROTEC 50 (DICLOFENAC-MISOPROS*04/14/2005 8 - GI Upset FOSAMAX (ALENDRONATE SODIUM) 01/31/2007 5 - Intolerance Comments: MUSCLE WEAKNESS LIPITOR (ATORVASTATIN CALCIUM) 06/29/2012 14 - Other: See Comments Comments: Muscle achiness MACRODANTIN (NITROFURANTOIN) 04/14/2005 2 - Rash PERCOCET (OXYCODONE-ACETAMINOPHEN)04/14/2005 5 - Intolerance Comments: off balance, elevated blood pressure RFEESMV-LCM-YGF REDUCTASE INHIBIT*08/30/2015 17 - Myalgia Date Reviewed: 02/10/2018 Reviewed by: Rachael ([facility]) JACKY Dee - Fully Assessed Reason for [...] [L98.9] Order(s):PTH INTACT BLD [SQPTHI] Order #: [id number] FUTURE LORazepam (ATIVAN) 0.5 mg tabTake 1 tablet by mouth at bedtime as needed for up to 30 days.Disp: 30 tabletRfl: 0 CONSULT TO DERMATOLOGY [9006] Order #: [id number]: 1 Prescriptions as of 02/10/2018 Sig: MELOXICAM 15 MG TABLET Take 1 tablet by mouth once d* AOWZSHH-CTDHXJBAMEBVN-GKCRCFN* Take 1 tablet by mouth every * [...] anxiety or sleep labs as ordered Mariaa Mg III MD Prescriptions ordered this encounter Disp [...] Disc: Dosage adjustment Encounter Status:Closed by MARIAA MG III, MD on 02/10/18 [facility] Observed: 01/25/2018 Status: COMPLETED Source: [place] 12:00 AM [facility] REPOSITORY Patient Outreach ([facility]) LI GRIFFITH ([id number]) 1935 F NFR Date Time Provider Department 01/25/18 [facility]AA [facility] III [facility] During your visit today, we recorded the [...] Intolerance Comments: off balance, elevated blood pressure XFJSRUU-ZIQ-UQT REDUCTASE INHIBIT*08/30/2015 17 - Myalgia Date Reviewed: 01/24/2018 Reviewed by: Carmen Barrientos DATABASE OPERATOR - Fully Assessed Visit Diagnosis:Medication management [Z79.899] Order(s):BASIC METABOLIC PNL [SQBMP] Order #: [id number] FUTURE LIPID PANEL BASIC [SQLIPB] Order #: [id number] FUTURE Prescriptions as of 01/25/2018 Sig: X LORAZEPAM 1 MG TABLET Take one(1) tablet at bedtime* MELOXICAM 15 MG TABLET Take 1 tablet by mouth once d* JPYSPYF-PTZSWIIVHMZRF-DEEARMA* Take 1 tablet by mouth every * [...] (HCC) [I73.9] INVALID FOR* Encounter Status:Closed by [employer] Pharm[employer]ist[employer]ELVA on 06/03/18 CNOV Observed: 01/24/2018 Status: COMPLETED Source: [place] 1:40 PM [facility] REPOSITORY Office Visit ([facility]) LI GRIFFITH ([id number]) 1935 F NFR Date Time Provider Department 01/24/18 1:40 PM VERNON HARDING (PATIENT SAFETY SITTER) [facility] During your visit today, we recorded the following information about you: Temperature Pulse Respiration Blood pressure 97 degrees 60/minute 16/minute 130/70 Weight 55.8 kg Vernon Harding, MSN [employer]ATION OFFICER 01/24/2018 2:06 PM Signed Chief Complaint Patient presents with: Refill Request HPI Lirose Griffith is a 82 year old female [...] Intolerance off balance, elevated blood pressure - Pbakqhd-Chl-Ylu Red* Myalgia Current Medications Current Outpatient Prescriptions on File Prior to Visit: LORazepam (ATIVAN) 1 mg tablet Take one(1) tablet at bedtime as needed for anxiety/insomnia meloxicam (MOBIC) 15 mg tablet Take 1 tablet by mouth once daily. With food. Aneoszg-Bilcdeppmeupu-Nrnkfest (EXCEDRIN) 250-250-65 mg per tablet Take 1 [...] (HCC) 03/29/2014 - CHF (congestive heart failure) ([facility]) 08/11/2010 - Chronic kidney disease (CKD), stage III (moderate) 11/18/2016 - Claudication ([facility]) 06/16/2017 - Diverticulosis of colon [...] pacemaker 07/29/09 - COLONOSCOP W/ OR W/O [facility] SPE[facility] 06/05/10 - COLONOSCOP W/ OR W/O [facility] SPE[facility] Colonoscopy - EGD W/O OR W/BRUSH/WASH [...] was identified.- 01/24/2018 by Vernon Harding, MSN [employer]ANS R[employer]ATION OFFICER - Rx refilled. - LORAZEPAM 1 MG TABLET Vernon Harding, MSN [employer] OFFICER Referring Provider: SELF [[id number]] Allergies As of [...] Intolerance Comments: off balance, elevated blood pressure JQWUGTZ-LNS-HRD REDUCTASE INHIBIT*08/30/2015 17 - Myalgia Date Reviewed: 01/24/2018 Reviewed by: Carmen Barrientos LPN - Fully Assessed Reason for Visit: Refill Request [508] Primary Visit Diagnosis:Chronic insomnia [F51.04] Order(s):LORazepam (ATIVAN) 1 mg tabletTake one(1) tablet at bedtime as needed for anxiety/insomniaDisp: 30 tabletRfl: 0 Prescriptions as of 01/24/2018 Sig: LORAZEPAM 1 MG TABLET Take one(1) tablet at bedtime* MELOXICAM 15 MG TABLET Take 1 tablet by mouth once d* XHGIBTS-NKDSZKQOZFKGH-DOTZYKU* Take 1 tablet by mouth every * [...] History Recorded Encounter Status:Closed by VERNON HARDING CNP on 01/24/18 PROGRESS Observed: 01/24/2018 Status: COMPLETED Source: [place] 1:31 PM [facility] REPOSITORY O ID: [id number] Author: Vernon Nelson (Opal) Mehdi Service: (none) Author Type: Nurse Practitioner [...] Intolerance off balance, elevated blood pressure - Tygjnjl-Pmc-Rjv Red* Myalgia Current Medications Current Outpatient Prescriptions on File Prior to Visit: LORazepam (ATIVAN) 1 mg tablet Take one(1) tablet at bedtime as needed for anxiety/insomnia meloxicam (MOBIC) 15 mg tablet Take 1 tablet by mouth once daily. With food. Zqqtrsq-Grxghylgftjhx-Jxopmfet (EXCEDRIN) 250-250-65 mg per tablet Take 1 [...] (HCC) 03/29/2014 - CHF (congestive heart failure) ([facility]) 08/11/2010 - Chronic kidney disease (CKD), stage III (moderate) 11/18/2016 - Claudication ([facility]) 06/16/2017 - Diverticulosis of colon [...] pacemaker 07/29/09 - COLONOSCOP W/ OR W/O [facility] SPE[facility] 06/05/10 - COLONOSCOP W/ OR W/O [facility] SPE[facility] Colonoscopy - EGD W/O OR W/BRUSH/WASH [...] was identified.- 01/24/2018 by Vernon Harding, MSN [employer] OFFICER - Rx refilled. - LORAZEPAM 1 MG TABLET Vernon Harding, MSN [employer] OFFICER PROGRESS Observed: 12/21/2017 Status: COMPLETED Source: [place] 11:27 AM [facility] REPOSITORY HNO ID: [id number] Author: Zachary Neal V Service: (none) Author Type: Physician Type: Progress Notes Filed: 12/21/2017 1:53 PM Note Text: Patient presents with: Established Patient: Euflexxa injection # 3 to bilateral knees Lot # [id number] Exp: 08/14/2018 Diagnosis:Bilateral knees osteoarthritis History: Li [...] DO PROGRESS Observed: 12/21/2017 Status: COMPLETED Source: [place] 11:02 AM [facility] REPOSITORY HNO ID: [id number] Author: Jocelyn Adan Ma Service: (none) Author [...] date. CNOV Observed: 12/21/2017 Status: COMPLETED Source: [place] 11:00 AM [facility] REPOSITORY Office Visit ([facility]) LI GRIFFITH ([id number]) 1935 F NFR Date Time Provider Department [...] # 3 to bilateral knees Lot # [id number] Exp: 08/14/2018 Diagnosis:Bilateral knees osteoarthritis History: Li [...] Neal DO Referring Provider: ZACHARY NEAL V [[id number]] Allergies As of Date: 12/21/2017 Noted Allergy Reaction ACCUPRIL (QUINAPRIL HCL) 04/14/2005 2 - Rash ARTHROTEC 50 (DICLOFENAC-MISOPROS*04/14/2005 8 - GI Upset FOSAMAX (ALENDRONATE SODIUM) 01/31/2007 5 - Intolerance Comments: MUSCLE WEAKNESS LIPITOR (ATORVASTATIN CALCIUM) 06/29/2012 14 - Other: See Comments Comments: Muscle achiness MACRODANTIN (NITROFURANTOIN) 04/14/2005 2 - Rash PERCOCET (OXYCODONE-ACETAMINOPHEN)04/14/2005 5 - Intolerance Comments: off balance, elevated blood pressure VTKNMFH-MYB-SVF REDUCTASE INHIBIT*08/30/2015 17 - Myalgia Date Reviewed: 12/21/2017 Reviewed by: Jocelyn Adan Ma - Fully Assessed Reason for Visit: Established Patient [175] Cmt: Euflexxa injection # 3 to bilateral knees Lot # [id number] Exp: 08/14/2018 Primary Visit Diagnosis:Primary osteoarthritis of both knees [M17.0] Order(s):sodium hyaluronate 20 mg injection (EUFLEXXA)Disp: Rfl: sodium hyaluronate 20 mg injection (EUFLEXXA)Disp: Rfl: Prescriptions as of 12/21/2017 Sig: MELOXICAM 15 MG TABLET Take 1 tablet by mouth once d* HVQRLDS-KQDEIVFDGJWKM-YCDQKWL* Take 1 tablet by mouth every * [...] HYALURONATE 10 MG/ML(MW 2.4-3* 12/21/2017 12/22/2017 Route: IAt SODIUM HYALURONATE 10 MG/ML(MW 2.4-3* 12/21/2017 12/22/2017 Route: [facility] Encounter Status:Closed by ZACHARY NEAL DO, V on 12/21/17 CNPN Observed: 12/15/2017 Status: COMPLETED Source: [place] 12:00 AM [facility] REPOSIT[facility] LI GRIFFITH ([id number]) 1935 F NFR Date Time Provider Department 12/15/17 ZACHARY NEAL V [employer] During your visit today, we recorded the following information about you: Harrison Andrade PSR 12/15/2017 9:15 AM Signed Pt called in and asked if Dr. Neal was going to call in Meloxicam to her local pharmacy, [facility] in [place]. She said she saw him on 12/10/17 [...] call once it is called in to [facility] please. Thanks in advance! Harrison Andrade PSR Jocelyn Adan Ma 12/15/2017 1:53 PM Signed Zachary Neal V ?Nakita (Rn) SHERRILL Pruett 2 hours ago (11:30 AM) ? ? ? rx for meloxicam e-scripted to pharmacy Zachary V Ángel, DO (Routing comment) Patient has been notified [...] Intolerance Comments: off balance, elevated blood pressure WCLXSXZ-HKK-ANB REDUCTASE INHIBIT*08/30/2015 17 - Myalgia Date Reviewed: 12/10/2017 Reviewed by: Jocelyn Adan Ma - Fully Assessed Reason for Visit: Medication Question [8588] Primary Visit Diagnosis:Primary osteoarthritis of knees, bilateral [M17.0] Order(s):meloxicam (MOBIC) 15 mg tabletTake 1 tablet by mouth once daily. With food.Disp: 30 tabletRfl: 0 Prescriptions as of 12/15/2017 Sig: MELOXICAM 15 MG TABLET Take 1 tablet by mouth once d* ALQVEII-TXIRFCOGOMBHP-TQIONZY* Take 1 tablet by mouth every * [...] 12/15/17 PROGRESS Observed: 12/10/2017 Status: COMPLETED Source: [place] 11:11 AM [facility] RE[facility]IT[facility] HNO ID: [id number] Author: Zachary Neal V Service: (none) Author Type: Physician Type: Progress Notes Filed: 12/10/2017 12:36 PM Note Text: Patient presents with: Established Patient: Euflexxa injection # 2 to bilateral knees Lot # [id number] Exp: 08/14/2018 Diagnosis:Bilateral knees osteoarthritis History: Li returns for second Euflexxa injection into the bilateral knees. Past medical history, family history, social history, and review of systems are unchanged from initial visit dated 10/11/17 and reviewed by me today. Physical Examination: [...] or any sensory changes. Zachary Neal DO CNOV Observed: 12/10/2017 Status: COMPLETED Source: [place] 11:00 AM [facility] Office Visit ([facility]) LI GRIFFITH ([id number]) 1935 F NFR Date Time Provider Department [...] # 2 to bilateral knees Lot # [id number] Exp: 08/14/2018 Diagnosis:Bilateral knees osteoarthritis History: Li [...] Neal DO Referring Provider: ZACHARY NEAL V [[id number]] Allergies As of Date: 12/10/2017 Noted Allergy Reaction ACCUPRIL (QUINAPRIL HCL) 04/14/2005 2 - Rash ARTHROTEC 50 (DICLOFENAC-MISOPROS*04/14/2005 8 - GI Upset FOSAMAX (ALENDRONATE SODIUM) 01/31/2007 5 - Intolerance Comments: MUSCLE WEAKNESS LIPITOR (ATORVASTATIN CALCIUM) 06/29/2012 14 - Other: See Comments Comments: Muscle achiness MACRODANTIN (NITROFURANTOIN) 04/14/2005 2 - Rash PERCOCET (OXYCODONE-ACETAMINOPHEN)04/14/2005 5 - Intolerance Comments: off balance, elevated blood pressure QHBOJSC-ILY-ZVA REDUCTASE INHIBIT*08/30/2015 17 - Myalgia Date Reviewed: 12/10/2017 Reviewed by: Jocelyn Adan Ma - Fully Assessed Reason for Visit: Established Patient [175] Cmt: Euflexxa injection # 2 to bilateral knees Lot # [id number] Exp: 08/14/2018 Primary Visit Diagnosis:Primary osteoarthritis of both knees [M17.0] Prescriptions as of 12/10/2017 Sig: MAUNRRT-ZOOQVNQUNUVLA-WLEDHUX* Take 1 tablet by mouth every * [...] 12/10/17 PROGRESS Observed: 12/10/2017 Status: COMPLETED Source: [place] 10:55 AM [facility] REPOSIT[facility] HNO ID: [id number] Author: Jocelyn Adan Ma Service: (none) Author [...] date. PROGRESS Observed: 12/03/2017 Status: COMPLETED Source: [place] 11:35 AM [facility] RE[facility] HNO ID: [id number] Author: Jessica Holman RN Service: (none) Author Type: (none) Type: Progress Notes Filed: 12/03/2017 11:38 AM Note Text: Attempted to fit pt. with Don-Marla right medial unloading brace, but she needs medium and only small available. Pt. chooses to wait until medium brace available rather than obtaining from [facility]. will notify her when arrives. PROGRESS Observed: 12/03/2017 Status: COMPLETED Source: [place] 11:25 AM [facility] RE[facility] HNO ID: [id number] Author: Zachary Neal V Service: (none) Author [...] DO PROGRESS Observed: 12/03/2017 Status: COMPLETED Source: [place] 11:05 AM [facility] RE[facility] HNO ID: [id number] Author: Jessica Holman RN Service: (none) Author [...] OV for third Euflexxa injecitons bilateral knees (10--17), Wants to begin series again Pt. presents [...] today. CNOV Observed: 12/03/2017 Status: COMPLETED Source: [place] 11:00 AM [facility] Office Visit ([facility]) LI GRIFFITH ([id number]) 1935 F NFR Date Time Provider Department [...] medium brace available rather than obtaining from [facility]. will notify her when arrives. Referring Provider: ZACHARY NEAL V [[id number]] Allergies As of Date: 12/03/2017 Noted Allergy Reaction ACCUPRIL (QUINAPRIL HCL) 04/14/2005 2 - Rash ARTHROTEC 50 (DICLOFENAC-MISOPROS*04/14/2005 8 - GI Upset FOSAMAX (ALENDRONATE SODIUM) 01/31/2007 5 - Intolerance Comments: MUSCLE WEAKNESS LIPITOR (ATORVASTATIN CALCIUM) 06/29/2012 14 - Other: See Comments Comments: Muscle achiness MACRODANTIN (NITROFURANTOIN) 04/14/2005 2 - Rash PERCOCET (OXYCODONE-ACETAMINOPHEN)04/14/2005 5 - Intolerance Comments: off balance, elevated blood pressure XFGSHNG-XUH-IUY REDUCTASE INHIBIT*08/30/2015 17 - Myalgia Date Reviewed: 12/03/2017 Reviewed by: Jessica Holman RN - Fully Assessed Reason for Visit: Recheck [92] Cmt: 6 months post last OV for third Euflexxa injecitons bilateral knees (10-11-17), Wants to begin series again Primary Visit Diagnosis:Primary osteoarthritis of both knees [M17.0] Prescriptions as of 12/03/2017 Sig: RQLOPTE-KRTSNJOGBMIIC-KQRWQCF* Take 1 tablet by mouth every * [...] 12/03/17 OBSOLETE Observed: 09/21/2017 Status: COMPLETED Source: [place] 12:00 AM [facility] RE[facility] Refill ([facility]) LI GRIFFITH ([id number]) 1935 F NFR Date Time Provider Department 09/21/17 [facility] During your visit today, we recorded the following information about you: Lindsay Sánchez Psr 09/21/2017 11:15 AM Signed Patient has been identified by name and date of : Yes Pending Prescriptions Disp Refills LEVOTHYROXINE 100 MCG TABLET 90 tablet 3 GABINO: No RX INSTRUCTIONS: Patient aware RX will be sent to pharmacy. No need to notify patient. Lindsay Sánchez Psr [employer] OFF[employer] 09/21/2017 6:21 PM Signed The following approved medication requests have been transmitted electronically. Signed Prescriptions Disp Refills levothyroxine (SYNTHROID) 100 mcg tablet 90 tablet 3 Sig: TAKE 1 TABLET BY MOUTH ONE TIME DAILY ON AN EMPTY STOMACH GABINO: No Authorizing Provider: MARIAA MG III Ordering User: VERNON HARDING CNP, [employer]N [employer]ATION OFFICER Allergies As of Date: 09/21/2017 Noted Allergy Reaction ACCUPRIL (QUINAPRIL HCL) 04/14/2005 2 - Rash ARTHROTEC 50 (DICLOFENAC-MISOPROS*04/14/2005 8 - GI Upset FOSAMAX (ALENDRONATE SODIUM) 01/31/2007 5 - Intolerance Comments: MUSCLE WEAKNESS LIPITOR (ATORVASTATIN CALCIUM) 06/29/2012 14 - Other: See Comments Comments: Muscle achiness MACRODANTIN (NITROFURANTOIN) 04/14/2005 2 - Rash PERCOCET (OXYCODONE-ACETAMINOPHEN)04/14/2005 5 - Intolerance Comments: off balance, elevated blood pressure CZHXLAT-JZE-PZJ REDUCTASE INHIBIT*08/30/2015 17 - Myalgia Date Reviewed: [...] Status:Closed by VERNON HARDING CNP on 09/21/17 ALLERGIES ALLERGIES DATE TYPE / NAME / CODE REACTION SEVERITY SOURCE CODE 08/03/2018 Drug misoprostol/[id number] Upset Stomach Unknown [place] Allergy/41 33(RXNORM) [facility] [id number]([facility]) Repository 08/03/2018 Drug oxycodone/[id number] Other Unknown [place] Allergy/41 (RXNORM) [facility] [id number]([facility]) Repository 08/03/2018 Drug nitrofurantoin/F0060 Rash Unknown [place] Allergy/41 08543(RXNORM) [facility] [id number]([facility]) Repository 08/03/2018 Drug quinapril/[id number] Rash Unknown [place] Allergy/41 (RXNORM) Community [id number]([facility]) Repository 08/03/2018 Drug diclofenac/[id number] Upset Stomach Unknown [place] Allergy/41 9(RXNORM) Community [id number]([facility]) Repository 08/03/2018 Drug alendronate Other Unknown [place] Allergy/41 sodium/[id number](RX [id number] Rep[facility] 08/03/2018 Drug atorvastatin/C384822 Pain in joints Unknown [place] Allergy/41 321(RXNORM) Community [id number]([facility]) Repository 08/03/2018 Drug acetaminophen/E60903 Other Unknown [place] Allergy/41 1605(RXNORM) Community [id number]([facility]) Repository 08/30/2015 Drug VETSAOU-NPI-HIB Myalgia [place] Class/4195 REDUCTASE INHIBITORS Clinic Main [id number]([facility] [place] [facility]) Repository 06/29/2012 DRUG ATORVASTATIN CALCIUM OTHER: SEE C [facility]/ Clinic Main [id number]([facility]) Repository 01/31/2007 DRUG ALENDRONATE SODIUM INTOLERANCE [place] [address] Clinic Main [id number]([facility]) Repository 04/14/2005 DRUG QUINAPRIL HCL RASH [place] [address] Clinic Main [id number]([facility]) Repository 04/14/2005 DRUG/04285 DICLOFENAC-MISOPROST GI UPSET [place] 1003([facility] Main D CT) [place] Repository 04/14/2005 DRUG NITROFURANTOIN RASH [place] [address] Clinic Main [id number]([facility]) Repository 04/14/2005 DRUG/40885 OXYCODONE-ACETAMINOP INTOLERANCE [place] 1003([facility] Main D [facility]) [place] Repository ENCOUNTERS ENCOUNTERS ADMIT/DISCHARGE ACCOUNT ADMITTING ENCOUNTER LOCATION SOURCE NUMBER CLASS 09/08/2018/09/09/19 [id number] Ambulatory [address] Main [place] Repository 09/07/2018/09/12/19 [id number] Ambulatory [address] Main [place] Repository 09/07/2018/09/07/19 [id number] Ambulatory [address] Main [place] Repository 08/13/2018/09/04/19 [id number] Juvenal Barber Chi Inpatient [place] Izzy 19 Encounter [facility] ing:TCURoom: Repository [id number]: 1 08/03/2018/08/13/20 [id number] [place], Inpatient Izzy [place] 18 Messi Encounter [facility] ing:AU5Toqp: Repository [id number]: 1 08/03/2018 [id number] [place], Ambulatory BMSBuilding:B Izzy Swenson MS.[facility] Repository 08/03/2018 [id number] [place], Ambulatory BMSBuilding:Juany Swenson MS.[facility] Repository 08/03/2018 [id number] Agyepong, Ambulatory BMSBuilding:Juany Swenson MS.[facility] Repository 08/03/2018 [id number] Agyepong, Ambulatory BMSBuilding:Juany Swenson MS.CF.[facility] Repository 08/03/2018 [id number] Agyepong, Ambulatory BMSBuilding:Juany Swenson MS.[facility] Repository 08/03/2018 [id number] Agyepong, Ambulatory BMSBuilding:Juany Swenson MS.CF.[facility] Repository 08/03/2018 [id number] Agyepong, Ambulatory BMSBuilding:Juany Swenson MS.[facility] Repository 08/03/2018 [id number] Agyepong, Ambulatory BMSBuilding:Juany Swenson MS.CF.[facility] Repository 08/03/2018 [id number] Agyepong, Ambulatory BMSBuilding:Juany Swenson MS.[facility] Repository 08/03/2018 [id number] Agyepong, Ambulatory BMSBuilding:Juany Swenson MS.[facility] Repository 08/03/2018 [id number] Agyepong, Ambulatory BMSBuilding:Juany Swenson MS.[facility] Repository 08/03/2018 [id number] Agyepong, Ambulatory BMSBuilding:Juany Swenson MS.[facility] Repository 08/03/2018 [id number] Agyepong, Ambulatory BMSBuilding:Juany Swenson MS.[facility] Repository 08/03/2018 [id number] Agyepong, Ambulatory BMSBuilding:Juany Swenson MS.[facility] Repository 08/03/2018/08/13/20 [id number] Ambulatory BMSBuilding:[address] Repository 08/03/2018/08/13/20 [id number] Ambulatory BMSBuilding:[address] Repository 08/02/2018/08/02/20 [id number] Ambulatory [address] Repository 07/20/2018 [id number] Ambulatory Izzy Izzy [facility] ing:RAD Repository 07/20/2018/07/20/20 [id number] Ambulatory BMSBuilding:B Izzy 18 MS.WSA [facility] Repository 07/06/2018/07/06/20 [id number] Ambulatory Brand 18 [facility] [place] Repository 06/01/2018/06/01/20 [id number] Ambulatory Brand 18 [facility] [place] Repository 05/26/2018/05/26/20 [id number] Ambulatory [facility] [place] Repository 05/12/2018/05/12/20 [id number] Ambulatory [facility] [place] Repository 05/12/2018/05/13/20 [id number] Ambulatory [facility] [place] Repository 04/05/2018 [id number] Ambulatory UNIBuilding:R [place] AD NM [facility] Repository 03/11/2018/03/14/20 [id number] Ambulatory Brand [facility] [place] Repository 02/10/2018/02/11/20 [id number] Ambulatory Brand [facility] [place] Repository 02/10/2018/02/12/20 [id number] Ambulatory Brand [facility] [place] Repository 01/24/2018/01/25/20 [id number] Ambulatory [facility] [place] Repository 12/21/2017/12/22/19 [id number] Ambulatory [facility] [place] Repository 12/10/2017/12/14/19 [id number] Ambulatory [facility] [place] Repository 12/03/2017/12/07/19 [id number] Ambulatory [facility] [place] Repository PAYERS PAYERS ENCOUNTER GUARANTOR PAYER SUBSCRIBER SOURCE 08/13/2018 LI [id number] Primary LI Magana LAMAR Insurance:MEDICARE WOLFEDOB: Community [place] BPolic [id number] Hospital [address]Kxw: (330) Number: Repository [phone] () [id number] Date:2018-08-13 08/13/2018 Secondary NETTA Magana Insurance:CHANNING HOMENAPolic WOLFEDOB: Community y Number: [id number] Hospital [id number] Repository Date:6171-85-76Yh[address] [address]KC: 08/13/2018 Tertiary NOT GIVENUNK Izzy Insurance:SELF PAY [facility] Hospital Number: Effective Repository Date:2018-08-13 08/03/2018 LI [id number] Primary LI E [place] Insurance:MEDICARE WOLFEDOB: [place] PART A [facility] [id number] Hospital [address]Orx: (330) Number: Repository [phone] () [id number] Date:2018-08-03 08/03/2018 Secondary NETTA E Izzy Insurance:CIGNAPolic WOLFEDOB: Community y Number: [id number] Hospital [id number] Repository Date:3899-76-99Un [place] [id number], [place] [address]OQ: 08/03/2018 Tertiary NOT GIVENUNK Izzy Insurance:SELF PAY [facility] Number: Effective Repository Date:2018-08-03 08/03/2018 LI [id number] Primary LI E [place] Insurance:MEDICARE WOLFEDOB: [place] PART A [facility] [id number] Hospital [address]Tvv: (330) Number: Repository [phone] () [id number] Date:2018-08-03 08/03/2018 Secondary NETTA E [place] Insurance:CIGNAPolic WOLFEDOB: Community y Number: [id number] Hospital [id number] Repository Date:4241-63-41Qo [place] [id number], [place] [address]ZH: 08/03/2018 Tertiary NOT GIVENUNK [place] Insurance:SELF PAY [facility] Hospital Number: Effective Repository Date:2018-08-03 08/03/2018 LI [id number] Primary LI E Izzy [place] Insurance:MEDICARE WOLFEDOB: [place] [facility] [id number] Hospital [address]Swp: (330) Number: Repository [phone] () [id number] Date:2018-08-03 08/03/2018 Secondary NETTA E [place] Insurance:CIGNAPolic WOLFEDOB: Community y Number: [id number] Hospital [id number] Repository Date:7447-54-35Pv [place] [address]Ayjbrkzmbjr, [place] [address]YY: 08/03/2018 Tertiary NOT GIVENUNK [place] Insurance:SELF PAY [facility] Number: Effective Repository Date:2018-08-03 08/03/2018 LI [id number] Primary LI E [place] Insurance:MEDICARE WOLFEDOB: [place] [facility] [id number] Hospital [address]Wip: (330) Number: Repository [phone] () [id number] Date:2018-08-03 08/03/2018 Secondary NETTA E [place] Insurance:CIGNAPolic WOLFEDOB: Community y Number: [id number] Hospital [id number] Repository Date:9365-41-55[address]GhziaqdypjvTAYLORS, [place] [address]UR: 08/03/2018 Tertiary NOT GIVENUNK Izzy Insurance:SELF PAY [facility] Number: Effective Repository Date:2018-08-03 08/03/2018 LI [id number] Primary IL E [place] Insurance:MEDICARE WOLFEDOB: [place] [facility] [id number] Hospital [address]Ayq: (330) Number: Repository [phone] () [id number] Date:2018-08-03 08/03/2018 Secondary NETTA E [place] Insurance:CIGNAPolic WOLFEDOB: Community y Number: [id number] Hospital [id number] Repository Date:7550-29-81Cy [address]Drrugydwrau, [place] [address]LX: 08/03/2018 Tertiary NOT GIVENUNK [place] Insurance:SELF PAY [facility] Number: Effective Repository Date:2018-08-03 08/03/2018 LI [id number] Primary LI E [place] Insurance:MEDICARE WOLFEDOB: [place] [facility] [id number] Hospital [address]Bnu: (330) Number: Repository [phone] () [id number] Date:2018-08-03 08/03/2018 Secondary NTETA E [place] Insurance:CIGNAPolic WOLFEDOB: Community y Number: [id number] Hospital [id number] Repository Date:6379-15-40Mf [place] [address]Fddbqmrtdwo, [place] [address]RR: 08/03/2018 Tertiary NOT GIVENUNK [place] Insurance:SELF PAY [facility] Number: Effective Repository Date:2018-08-03 08/03/2018 LI [id number] Primary LI E [place] Insurance:MEDICARE WOLFEDOB: [place] PART A [facility] [id number] [address]Fwo: (330) Number: Repository [phone] () [id number] Date:2018-08-03 08/03/2018 Secondary NETTA E [place] Insurance:CIGNAPolic WOLFEDOB: Community y Number: [id number] [place] [address] [id number] Repository Date:8683-14-71Oe [place] [address]Aqwrdhusdws, [place] [address]PJ: 08/03/2018 Tertiary NOT GIVENUNK [place] Insurance:SELF PAY [facility] Number: Effective Repository Date:2018-08-03 08/03/2018 LI [id number] Primary LI E [place] Insurance:MEDICARE WOLFEDOB: [place] PART [place] [facility] [id number] [address]Kll: (330) Number: Repository [phone] () [id number] Date:2018-08-03 08/03/2018 Secondary ENTTA E [place] Insurance:CIGNAPolic WOLFEDOB: Community y Number: [id number] [place] [address] [id number] Repository Date:4535-35-77Em [address]Gqkvlslqcwu, [place] [address]ET: 08/03/2018 Tertiary NOT GIVENUNK [place] Insurance:SELF PAY [facility] Number: Effective Repository Date:2018-08-03 08/03/2018 LI [id number] Primary LI E [place] Insurance:MEDICARE WOLFEDOB: [place] [facility] [id number] [address]Tel: (330) Number: Repository [phone] () [id number] Date:2018-08-03 08/03/2018 Secondary NETTA E [place] Insurance:CIGNAPolic WOLFEDOB: Community y Number: [id number] Hospital [id number] Repository Date:5325-20-24[address]Pyntemlqntr, [place] [address]DW: 08/03/2018 Tertiary NOT GIVENUNK [place] Insurance:SELF PAY [facility] Number: Effective Repository Date:2018-08-03 08/03/2018 LI Tarsha [id number] Primary LI E [place] Insurance:MEDICARE WOLFEDOB: [place] [facility] [id number] [id number]: (330) Number: Repository [phone] () [id number] Date:2018-08-03 08/03/2018 Secondary NETTA E [place] Insurance:CIGNAPolic WOLFEDOB: Community y Number: [id number] Hospital [id number] Repository Date:9826-84-11Vl [place] [address]Hdvtymlfrzc, [place] [address]QT: 08/03/2018 Tertiary NOT GIVENUNK [place] Insurance:SELF PAY [facility] Number: Effective Repository Date:2018-08-03 08/03/2018 LI [id number] Primary LI E [place] Insurance:MEDICARE WOLFEDOB: [place] [facility] [id number] [id number]: (330) Number: Repository [phone] () [id number] Date:2018-08-03 08/03/2018 Secondary NETTA E [place] Insurance:CIGNAPolic WOLFEDOB: Community y Number: [id number] Hospital [id number] Repository Date:9539-81-73Q[address]Zedticdseuz, [place] [address]IA: 08/03/2018 Tertiary NOT GIVENUNK [place] Insurance:SELF PAY [facility] Number: Effective Repository Date:2018-08-03 08/03/2018 LI Tarsha [id number] Primary LI E [place] Insurance:MEDICARE WOLFEDOB: [place] [facility] [id number] Hospital 115[address]Qlv: (330) Number: Repository [phone] () [id number] Date:2018-08-03 08/03/2018 Secondary NETTA E [place] Insurance:CIGNAPolic WOLFEDOB: Community y Number: [id number] Hospital [id number] Repository Date:7544-66-19I[address]Lqqoaspmybv, [place] [address]QQ: 08/03/2018 Tertiary NOT GIVENUNK [place] Insurance:SELF PAY [facility] Number: Effective Repository Date:2018-08-03 08/03/2018 LI Tarsha [id number] Primary LI E [place] Insurance:MEDICARE WOLFEDOB: [place] [facility] [id number] Hospital [address]Iid: (330) Number: Repository [phone] () [id number] Date:2018-08-03 08/03/2018 Secondary NETTA E [place] Insurance:CIGNAPolic WOLFEDOB: Community y Number: [id number] Hospital [id number] Repository Date:7291-03-52Xs [address]Ggodcaiqmlv, [place] [address]GS: 08/03/2018 Tertiary NOT GIVENUNK [place] Insurance:SELF PAY [facility] Number: Effective Repository Date:2018-08-03 08/03/2018 LI [id number] Primary LI E [place] Insurance:MEDICARE WOLFEDOB: [place] [facility] [id number] Hospital [address]Stt: (330) Number: Repository [phone] () [id number] Date:2018-08-03 08/03/2018 Secondary NETTA E [place] Insurance:CIGNAPolic WOLFEDOB: Community y Number: [id number] Hospital [id number] Repository Date:9476-86-18Em [address]Xpcoyoedgmc, [place] [address]MK: 08/03/2018 Tertiary NOT GIVENUNK [place] Insurance:SELF PAY [facility] Number: Effective Repository Date:2018-08-03 08/03/2018 LI Tarsha [id number] Primary LI E [place] Insurance:MEDICARE WOLFEDOB: [place] [facility] [id number] Hospital 95[address]Ktq: (330) Number: Repository [phone] () [id number] Date:2018-08-03 08/03/2018 Secondary NETTA E [place] Insurance:CIGNAPolic WOLFEDOB: Community y Number: [id number] Hospital [id number] Repository Date:7355-65-58Bg [place] [id number], [place] [address]LS: 08/03/2018 Tertiary NOT GIVENUNK [place] Insurance:SELF PAY [facility] Number: Effective Repository Date:2018-08-03 08/03/2018 LI Tarsha [id number] Primary LI E [place] Insurance:MEDICARE WOLFEDOB: [place] [facility] [id number] Hospital [address]Hrw: (330) Number: Repository [phone] () [id number] Date:2018-08-03 08/03/2018 Secondary NETTA E [place] Insurance:CIGNAPolic WOLFEDOB: Community y Number: [id number] Hospital [id number] Repository Date:1053-21-60Cd [address]Xnvyippeafa, [place] [address]BZ: 08/03/2018 Tertiary NOT GIVENUNK [place] Insurance:SELF PAY [facility] Number: Effective Repository Date:2018-08-03 08/03/2018 LI Willingham [id number] Primary LI E [place] Insurance:MEDICARE WOLFEDOB: [place] [facility] [id number] Hospital [address]Zbc: (330) Number: Repository [phone] () [id number] Date:2018-08-03 08/03/2018 Secondary NETTA E [place] Insurance:CIGNAPolic WOLFEDOB: Community y Number: [id number] Hospital [id number] Repository Date:7934-11-26Zn [address]Tcmkdmjqtbu, [place] [address]IS: 08/03/2018 Tertiary NOT GIVENUNK [place] Insurance:SELF PAY [facility] Number: Effective Repository Date:2018-08-03 07/20/2018 LI E [id number] Primary LI E Iz[place] Insurance:MEDICARE WOLFEDOB: [place] [facility] [id number] Hospital [address]Yiq: (330) Number: Repository [phone] () [id number] Date:2018-07-20 07/20/2018 Secondary NETTA E [place] Insurance:CIGNAPolic WOLFEDOB: Community y Number: [id number] Hospital [id number] Repository Date:0603-58-62Dg [address]Mwgtxveyrcq, [place] [address]GB: 07/20/2018 Tertiary NOT GIVENUNK [place] Insurance:SELF PAY [facility] Hospital Number: Effective Repository Date:2018-07-20 07/20/2018 LI E [id number] Primary LI E [place] Insurance:MEDICARE [place] [id number] Hospital [address]Gft: (330) Number: Repository [phone] () [id number] Date:2018-07-07 07/20/2018 Secondary NETTA E [place] Insurance:CIGNAPol WOLFEDOB: Community y Number: [id number] Hospital [id number] Repository Date:4197-50-02Ji [address]Jtmwsme[place], [place] [address]SD: 07/20/2018 Tertiary NOT GIVENUNK [place] Insurance:SELF PAY [facility] Hospital Number: Effective Repository Date:2018-07-19 04/05/2018 LI [id number] Primary [facility] [place] Number: Repository [id number]: [phone]) [id number] [phone] () Date:2001-12-21 04/05/2018 Secondary [facility] Insurance:[facility] y Number: Repository [id number] Date:[address]OTNVHDAITNZ, [place] [address]FK:
== END 2018-08-13 14:52 | disposition skilled nursing facility (03) | DRG 377 ==
LOC: ED 02:57 → PCU 06:32 → ICU 08-04 17:06 → MS3 08-06 15:14
PROVIDERS: Internal Medicine; Internal Medicine Critical Care Medicine; Internal Medicine Nephrology; Surgery; Admitting Provider Hospitalist; Emergency Provider Emergency Medicine; Family Provider Family Medicine; PCP Family Medicine
PROC: 0DJ08ZZ Inspection of Upper Intestinal Tract, Via Natural or Artificial Opening Endoscopic (ICD-10-PCS; CPT 43235; principal; 2018-08-04 15:00)
DX: K26.0 Acute duodenal ulcer with hemorrhage (principal); I50.23 Acute on chronic systolic (congestive) heart failure; D62 Acute posthemorrhagic anemia; N17.9 Acute kidney failure, unspecified; E87.0 Hyperosmolality and hypernatremia; I13.0 Hypertensive heart and chronic kidney disease with heart failure and stage 1 through stage 4 chronic kidney disease, or unspecified chronic kidney disease; N18.4 Chronic kidney disease, stage 4 (severe); I42.9 Cardiomyopathy, unspecified; I25.10 Atherosclerotic heart disease of native coronary artery without angina pectoris; I73.9 Peripheral vascular disease, unspecified; E89.0 Postprocedural hypothyroidism; E87.8 Other disorders of electrolyte and fluid balance, not elsewhere classified; M40.209 Unspecified kyphosis, site unspecified; M10.9 Gout, unspecified; D35.1 Benign neoplasm of parathyroid gland; M81.0 Age-related osteoporosis without current pathological fracture; Z79.82 Long term (current) use of aspirin; Z95.820 Peripheral vascular angioplasty status with implants and grafts; Z95.1 Presence of aortocoronary bypass graft; Z79.02 Long term (current) use of antithrombotics/antiplatelets; Z95.0 Presence of cardiac pacemaker; Z95.5 Presence of coronary angioplasty implant and graft; Z85.3 Personal history of malignant neoplasm of breast; Z90.12 Acquired absence of left breast and nipple; J44.9 Chronic obstructive pulmonary disease, unspecified
CPT/HCPCS: 36415; 71045; 73130; 74177; 80048; 80069; 80162; 81001; 82274; 82550; 82570; 83735; 83970; 84100; 84300; 84450; 84484; 84550; 85014; 85018; 85025; 85027; 85610; 85652; 85730; 86850; 86900; 86920; 86922; 87040; 87086; 93005; 93306; 93970; 94640; 97110; 97116; 97162; 97165; 97530; 97535; 97802; 99251; 99284; J7030; J7040; J7050; J7120; P9016; Q9967; A4216; G0463; J1940; J2405; J3490

== ENCOUNTER 2018-08-13 15:00 | Inpatient (IN) | payer MEDICARE, OTHER, SELFPAY ==
[2018-08-05 14:18] VITALS: BMI 21.9
[2018-08-13 15:25] VITALS: BP 144/57; PULSE 60; RESP 18; TEMP 36.4; O2SAT 95
--- NOTE | 2018-08-13 15:25 | NURSING ---
Patient admitted to rm 4 from [facility] via bed. Oriented to room and call light system explained.
[2018-08-13 16:14] VITALS: BMI 21.9
[2018-08-13 16:16] VITALS: BMI 21.9
--- NOTE | 2018-08-13 16:49 | PCM.HP.STD ---
Problem List (1) Gout Status: Acute (2) Acute on chronic kidney failure Status: Acute (3) Goiter Status: Chronic (4) Hyperlipidemia Status: Chronic (5) Anxiety Status: Chronic (6) Acute upper GI bleed Status: Acute Comment: PUD with duodenal ulcer (7) Hypertension Status: Chronic (8) Parathyroid adenoma Status: Chronic (9) Acute systolic (congestive) heart failure Status: Acute (10) COPD (chronic obstructive pulmonary disease) Status: Chronic (11) Coronary artery disease Status: Chronic (12) Peripheral vascular disease Status: Chronic Comment: severe History of Present Illness Date of Admission: 08/13/18 Chief Complaint: Here for rehabilitation, strengthening, prior to discharge home with spouse. The patient is a 82 year old Female with below past medical history presented to [facility] Emergency Department 08/03/2018 with vomiting, diarrhea. Black stool, bloody stool, coffee ground emesis. Fell from lightheadedness. Zofran, IV Fluids given. CT abdomen/pelvis showed diverticulosis. Hemoglobin 10.0, Glucose 177, BUN 68, Cr 1.50. INR 1.2, Stool guaiac negative, but maybe false negative, Troponin 0.017. NG tube unable. 08/03/2018 Admit to Hospital for Upper GI Bleed. IV Fluids, Hold Aspirin, Hold Plavix. IV Zofran, IV Protonix for Upper GI Bleed. Hold Digoxin for acute kidney injury. Hold Lasix, Aldactone. Needs right lower extremity intervention stent. 08/04/2018 Dr. Bazan performed EGD, oozing duodenal ulcer injected with epinephrine. 08/05/2018 Echo Normal LV size. Moderate concentric LVH. EF 35% Moderately severe segmental systolic dysfunction. 08/05/2018 Dr. Bazan performed EGD, non-bleeding duodenal ulcer, with NO stigmata of bleeding. 08/07/2018 Transfused 3 units Packed Red Blood Cells, Hemoglobin stable. Lasix 40MG IV BID for volume overload. Consider stopping Digoxin with chronic kidney disease stage 3 to 4. Restart Synthroid. 08/07/2018 Doppler of legs NEGATIVE for DVT. 08/08/2018 Chest X-ray mild cardiomegaly, COPD, negative acute findings. 08/08/2018 Right hand pain treated as cellulitis with IV Cefepime. 08/08/2018 X-ray right hand osteoarthritis, small erosion 5th proximal phalanx. 08/11/2018 Dr. Hull stop Losartan, Lasix, Aldactone. Check PTH, Calcium for hyperparathyroidism. Prednisone for gout, consider colchicine, Allopurinol. Uric acid 9.9. 08/12/2018 Prednisone for gout, placement at TCU. Cefepime discontinued, right hand secondary to gout, not cellulitis. 08/13/2018 Admit to TCU with debility, here for rehabilitation, strengthening, prior to discharge home with spouse. Past Medical History Past Medical History (Chronic Problems): Chronic Problems (Last Reviewed 08/03/18 @ 07:33 by Messi Hendricks MD) Hypothyroidism (Chronic) Cardiomyopathy (Chronic) 35% Hypertension (Chronic) Parathyroid adenoma (Chronic) History of breast cancer (Chronic) History of left mastectomy (Chronic) Chronic renal failure, stage 4 (severe) (Chronic) Hyperuricemia (Chronic) Osteoporosis (Chronic) Goiter (Chronic) Hyperlipidemia (Chronic) Anxiety (Chronic) Arrhythmia (Chronic) COPD (chronic obstructive pulmonary disease) (Chronic) Coronary artery disease (Chronic) Peripheral vascular disease (Chronic) severe Medical History: Medical History (Last Reviewed 08/03/18 @ 07:33 by Messi Hendricks MD) CAD (coronary artery disease) I25.10 History of breast cancer Z85.3 Hypothyroidism E03.9 PAD (peripheral artery disease) I73.9 Pacemaker Z95.0 COPD (chronic obstructive pulmonary disease) J44.9 HTN (hypertension) I10 Allergies alendronate sodium [From Fosamax] Allergy (Verified 08/03/18 02:29) Other nitrofurantoin [From Macrodantin] Allergy (Verified 08/03/18 02:29) Rash oxycodone [From Percocet] Allergy (Verified 08/03/18 02:29) Other quinapril [From Accupril] Allergy (Verified 08/03/18 02:29) Rash atorvastatin [From Lipitor] Adverse Reaction (Verified 08/03/18 02:29) Pain in joints diclofenac [From Arthrotec 50] Adverse Reaction (Verified 08/03/18 02:29) Upset Stomach misoprostol [From Arthrotec 50] Adverse Reaction (Verified 08/03/18 02:29) Upset Stomach Home Medications: Ambulatory Orders Medication Instructions Recorded Clopidogrel Bisulfate [Plavix] 75 mg PO DAILY 12/15/16 Levothyroxine [Synthroid] 100 mcg PO DAILY 07/08/17 Lorazepam [Ativan] 0.5 mg PO QHS PRN PRN 07/08/17 Nitroglycerin [Nitrostat] 0.4 mg SL PRN PRN 07/08/17 Cholecalciferol (VIT D3) [Vitamin 2,000 unit PO DAILY 08/03/18 D3] Gabapentin [Neurontin] 100 mg PO BIDCM 08/03/18 Risedronate [Actonel] 35 mg PO QWEEK 08/03/18 Carvedilol [Coreg (Beta Sonya)] 12.5 mg PO BID 08/13/18 Hydrocodone Bitart/Apap 5-325 1 tablet PO Q6H PRN PRN #1 tablet 08/13/18 [[place] 5/325] Pantoprazole Sodium [Protonix] 40 mg PO BID 08/13/18 predniSONE tablet 20 mg PO DAILY@0800 08/13/18 Surgical History: Surgical History (Last Reviewed 08/03/18 @ 07:33 by Messi Hendricks MD) History of coronary artery bypass graft x 3 Z95.1 S/P peripheral artery angioplasty with stent placement Z95.820 Status post peripheral artery angioplasty Z98.62 Surgical History: coronary bypass surgery, pacemaker implantation, - - fem artery bypass, Stent. 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 history Lives: Spouse/ Significant Other Smoking Status: Never smoker Tobacco Use: Non-smoker Alcohol: None Drugs: None - *Family History Maternal Family History: Family History (Last Reviewed 08/03/18 @ 07:34 by Messi Hendricks MD) Sister Breast cancer Hypertension History Items: No pertinent history Paternal Family History: Family History (Last Reviewed 08/03/18 @ 07:34 by Messi Hendricks MD) Sister Breast cancer Hypertension History Items: No pertinent history Review of Systems Constitutional: Denies: Chills, Fever, Weight Change HEENT: Denies: Head Aches, Sinus Congestion, Sinus Drainage Cardiovascular: Denies: Chest Pain, Palpitations Respiratory: Denies: Cough, Shortness of breath at rest, Sputum production Gastrointestinal: Denies: Abdominal Pain, Nausea, Vomiting Genitourinary: Denies: Dysuria Musculoskeletal: Denies: Joint Pain, Joint Tenderness Skin: Denies: Rash, Wounds Neurological: Denies: Numbness, Tingling, Focal weakness Psychiatric: Denies: Anxiety, Depression, Homicidal Ideations, Suicidal Ideations Hematologic/ Lymphatic: Denies: Easy Bruising, Easy Bleeding VTE Information - Inpt Only VTE Present on Admission: No VTE Mechan Device Prophylaxis: SCD's VTE Pharm Prophylaxis ordered?: No Reason prophylaxis not ordered:: Medical Contraindication Patient Problems: Active and Suspected Problems (Last Reviewed 08/03/18 @ 07:33 by Messi Hendricks MD) Gout (Acute) Acute on chronic kidney failure (Acute) - Physical Exam General: Alert, Oriented x3, Cooperative HEENT: Atraumatic, PERRLA, EOMI, Normocephalic Neck: Supple, No JVD, Negative Carotid Bruits Lungs: Clear to auscultation, Normal air movement, Diminished - Left base. Cardiovascular: Regular rate, No murmurs Abdomen: Bowel Sounds Present, Soft, Non Tender Extremities: No edema, Capillary Refill Less than 3 Seconds Skin: No rashes, No breakdown Musculoskeletal: No Tenderness to Palpation of Joints or Extremities Neurological: Cranial nerves II-XII grossly intact Psych/Mental Status: Normal Affect, Appropriate Oxygen Delivery Method Room Air Weight: 54.4 kg Body Mass Index (BMI) 21.9 Assessment/Plan All Active Problems (Last Reviewed 08/03/18 @ 07:33 by Messi Hendricks MD) Acute upper GI bleed (Acute) Acute gouty arthritis (Acute) Acute systolic (congestive) heart failure (Acute) Cellulitis (Ruled-out) Gout (Acute) Acute on chronic kidney failure (Acute) Hyperparathyroidism (Acute) Acute blood loss anemia (Acute) CAP (community acquired pneumonia) (Resolved) Severe sepsis (Resolved) 82 year old female with below past medical history hospitalized for acute Upper GI bleed requiring 3 units PRBC transfusion, complicated by gout exacerbation, acute on chronic kidney failure, admitted to TCU with debility, here for rehabilitation, strengthening, prior to discharge home with spouse. Debility - PT/OT. Pain - Tylenol 1000MG Q6H PRN mild pain, Tramadol 50MG Q8H PRN moderate pain. Bowel - Miralax 17GM daily, Senna/colace 1 tablet BID, Dulcolax 10MG PO daily PRN. Pneumonia vaccination - Administer Prevnar 13 and/or Pneumovax 23 as necessary. DVT prophylaxis - SCD's, systemic anticoagulation high risk recent UGIB. 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 Coronary Artery Disease - Coreg 12.5MG BID, Plavix 75MG daily, NTG 0.4MG SL Q5M PRN. Vitamin D deficiency - D3 2000IU daily. Peripheral Arterial Occlusive Disease - Plavix 75MG daily, further intervention with Dr. Maury Fuller. Neuropathic pain - Gabapentin 100MG BID. Hypothyroidism - Levothyroxine 100MCG daily. Duodenal ulcer/UGIB - Pantoprazole 40MG BID, monitor H&H. Gout - Prednisone 20MG daily thru 08/15/2018, consider uric acid lowering agents such as Allopurinol or Uloric. Osteoporosis - Actonel 35MG Qmonth. Acute on chronic systolic congestive heart failure (EF 35%) - Coreg 12.5MG BID, Rx Entresto 24/26MG BID x 2 weeks, 49/51MG BID x 2 weeks, then 97/103MG BID, monitor blood pressure, electrolytes, adding Entresto will decrease risk of mortality, hospitalization from heart failure.
--- NOTE | 2018-08-13 17:00 | HP.PCM_ITS ---
Problem List (1) Gout Status: Acute (2) Acute on chronic kidney failure Status: Acute (3) Goiter Status: Chronic (4) Hyperlipidemia Status: Chronic (5) Anxiety Status: Chronic (6) Acute upper GI bleed Status: Acute Comment: PUD with duodenal ulcer (7) Hypertension Status: Chronic (8) Parathyroid adenoma Status: Chronic (9) Acute systolic (congestive) heart failure Status: Acute (10) COPD (chronic obstructive pulmonary disease) Status: Chronic (11) Coronary artery disease Status: Chronic (12) Peripheral vascular disease Status: Chronic Comment: severe History of Present Illness Date of Admission: 08/13/18 Chief Complaint: Here for rehabilitation, strengthening, prior to discharge home with spouse. The patient is a 82 year old Female with below past medical history presented to [facility] Emergency Department 08/03/2018 with vomiting, diarrhea. Black stool, bloody stool, coffee ground emesis. Fell from lightheadedness. Zofran, IV Fluids given. CT abdomen/pelvis showed diverticulosis. Hemoglobin 10.0, Glucose 177, BUN 68, Cr 1.50. INR 1.2, Stool guaiac negative, but maybe false negative, Troponin 0.017. NG tube unable. 08/03/2018 Admit to Hospital for Upper GI Bleed. IV Fluids, Hold Aspirin, Hold Plavix. IV Zofran, IV Protonix for Upper GI Bleed. Hold Digoxin for acute kidney injury. Hold Lasix, Aldactone. Needs right lower extremity intervention stent. 08/04/2018 Dr. Bazan performed EGD, oozing duodenal ulcer injected with epinephrine. 08/05/2018 Echo Normal LV size. Moderate concentric LVH. EF 35% Moderately severe segmental systolic dysfunction. 08/05/2018 Dr. Bazan performed EGD, non-bleeding duodenal ulcer, with NO stigmata of bleeding. 08/07/2018 Transfused 3 units Packed Red Blood Cells, Hemoglobin stable. Lasix 40MG IV BID for volume overload. Consider stopping Digoxin with chronic kidney disease stage 3 to 4. Restart Synthroid. 08/07/2018 Doppler of legs NEGATIVE for DVT. 08/08/2018 Chest X-ray mild cardiomegaly, COPD, negative acute findings. 08/08/2018 Right hand pain treated as cellulitis with IV Cefepime. 08/08/2018 X-ray right hand osteoarthritis, small erosion 5th proximal phalanx. 08/11/2018 Dr. Hull stop Losartan, Lasix, Aldactone. Check PTH, Calcium for hyperparathyroidism. Prednisone for gout, consider colchicine, Allopurinol. Uric acid 9.9. 08/12/2018 Prednisone for gout, placement at TCU. Cefepime discontinued, right hand secondary to gout, not cellulitis. 08/13/2018 Admit to TCU with debility, here for rehabilitation, strengthening, prior to discharge home with spouse. Past Medical History Past Medical History (Chronic Problems): Chronic Problems (Last Reviewed 08/03/18 @ 07:33 by Messi Hendricks MD) Hypothyroidism (Chronic) Cardiomyopathy (Chronic) 35% Hypertension (Chronic) Parathyroid adenoma (Chronic) History of breast cancer (Chronic) History of left mastectomy (Chronic) Chronic renal failure, stage 4 (severe) (Chronic) Hyperuricemia (Chronic) Osteoporosis (Chronic) Goiter (Chronic) Hyperlipidemia (Chronic) Anxiety (Chronic) Arrhythmia (Chronic) COPD (chronic obstructive pulmonary disease) (Chronic) Coronary artery disease (Chronic) Peripheral vascular disease (Chronic) severe Medical History: Medical History (Last Reviewed 08/03/18 @ 07:33 by Messi Hendricks MD) CAD (coronary artery disease) I25.10 History of breast cancer Z85.3 Hypothyroidism E03.9 PAD (peripheral artery disease) I73.9 Pacemaker Z95.0 COPD (chronic obstructive pulmonary disease) J44.9 HTN (hypertension) I10 Allergies alendronate sodium [From Fosamax] Allergy (Verified 08/03/18 02:29) Other nitrofurantoin [From Macrodantin] Allergy (Verified 08/03/18 02:29) Rash oxycodone [From Percocet] Allergy (Verified 08/03/18 02:29) Other quinapril [From Accupril] Allergy (Verified 08/03/18 02:29) Rash atorvastatin [From Lipitor] Adverse Reaction (Verified 08/03/18 02:29) Pain in joints diclofenac [From Arthrotec 50] Adverse Reaction (Verified 08/03/18 02:29) Upset Stomach misoprostol [From Arthrotec 50] Adverse Reaction (Verified 08/03/18 02:29) Upset Stomach Home Medications: Ambulatory Orders Medication Instructions Recorded Clopidogrel Bisulfate [Plavix] 75 mg PO DAILY 12/15/16 Levothyroxine [Synthroid] 100 mcg PO DAILY 07/08/17 Lorazepam [Ativan] 0.5 mg PO QHS PRN PRN 07/08/17 Nitroglycerin [Nitrostat] 0.4 mg SL PRN PRN 07/08/17 Cholecalciferol (VIT D3) [Vitamin 2,000 unit PO DAILY 08/03/18 D3] Gabapentin [Neurontin] 100 mg PO BIDCM 08/03/18 Risedronate [Actonel] 35 mg PO QWEEK 08/03/18 Carvedilol [Coreg (Beta Sonya)] 12.5 mg PO BID 08/13/18 Hydrocodone Bitart/Apap 5-325 1 tablet PO Q6H PRN PRN #1 tablet 08/13/18 [Delaplaine 5/325] Pantoprazole Sodium [Protonix] 40 mg PO BID 08/13/18 predniSONE tablet 20 mg PO DAILY@0800 08/13/18 Surgical History: Surgical History (Last Reviewed 08/03/18 @ 07:33 by Messi Hendricks MD) History of coronary artery bypass graft x 3 Z95.1 S/P peripheral artery angioplasty with stent placement Z95.820 Status post peripheral artery angioplasty Z98.62 Surgical History: coronary bypass surgery, pacemaker implantation, - - fem a rtery bypass, Stent. 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 Lives: Spouse/ Significant Other Smoking Status: Never smoker Tobacco Use: Non-smoker Alcohol: None Drugs: None - *Family History Maternal Family History: Family History (Last Reviewed 08/03/18 @ 07:34 by Messi Hendricks MD) Sister Breast cancer Hypertension History Items: No pertinent history Paternal Family History: Family History (Last Reviewed 08/03/18 @ 07:34 by Messi Hendricks MD) Sister Breast cancer Hypertension History Items: No pertinent history Review of Systems Constitutional: Denies: Chills, Fever, Weight Change HEENT: Denies: Head Aches, Sinus Congestion, Sinus Drainage Cardiovascular: Denies: Chest Pain, Palpitations Respiratory: Denies: Cough, Shortness of breath at rest, Sputum production Gastrointestinal: Denies: Abdominal Pain, Nausea, Vomiting Genitourinary: Denies: Dysuria Musculoskeletal: Denies: Joint Pain, Joint Tenderness Skin: Denies: Rash, Wounds Neurological: Denies: Numbness, Tingling, Focal weakness Psychiatric: Denies: Anxiety, Depression, Homicidal Ideations, Suicidal Ideations Hematologic/ Lymphatic: Denies: Easy Bruising, Easy Bleeding VTE Information - Inpt Only VTE Present on Admission: No VTE Mechan Device Prophylaxis: SCD's VTE Pharm Prophylaxis ordered?: No Reason prophylaxis not ordered:: Medical Contraindication Patient Problems: Active and Suspected Problems (Last Reviewed 08/03/18 @ 07:33 by Messi Hendricks MD) Gout (Acute) Acute on chronic kidney failure (Acute) - Physical Exam General: Alert, Oriented x3, Cooperative HEENT: Atraumatic, PERRLA, EOMI, Normocephalic Neck: Supple, No JVD, Negative Carotid Bruits Lungs: Clear to auscultation, Normal air movement, Diminished - Left base. Cardiovascular: Regular rate, No murmurs Abdomen: Bowel Sounds Present, Soft, Non Tender Extremities: No edema, Capillary Refill Less than 3 Seconds Skin: No rashes, No breakdown Musculoskeletal: No Tenderness to Palpation of Joints or Extremities Neurological: Cranial nerves II-XII grossly intact Psych/Mental Status: Normal Affect, Appropriate Oxygen Delivery Method Room Air Weight: 54.4 kg Body Mass Index (BMI) 21.9 Assessment/Plan All Active Problems (Last Reviewed 08/03/18 @ 07:33 by Messi Hendricks MD) Acute upper GI bleed (Acute) Acute gouty arthritis (Acute) Acute systolic (congestive) heart failure (Acute) Cellulitis (Ruled-out) Gout (Acute) Acute on chronic kidney failure (Acute) Hyperparathyroidism (Acute) Acute blood loss anemia (Acute) CAP (community acquired pneumonia) (Resolved) Severe sepsis (Resolved) 82 year old female with below past medical history hospitalized for acute Upper GI bleed requiring 3 units PRBC transfusion, complicated by gout exacerbation, acute on chronic kidney failure, admitted to TCU with debility, here for rehabilitation, strengthening, prior to discharge home with spouse. * Debility - PT/OT. * Pain - Tylenol 1000MG Q6H PRN mild pain, Tramadol 50MG Q8H PRN moderate pain. * Bowel - Miralax 17GM daily, Senna/colace 1 tablet BID, Dulcolax 10MG PO daily PRN. * Pneumonia vaccination - Administer Prevnar 13 and/or Pneumovax 23 as necessary. * DVT prophylaxis - SCD's, systemic anticoagulation high risk recent UGIB. 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 * Coronary Artery Disease - Coreg 12.5MG BID, Plavix 75MG daily, NTG 0.4MG SL Q5M PRN. * Vitamin D deficiency - D3 2000IU daily. * Peripheral Arterial Occlusive Disease - Plavix 75MG daily, further intervention with Dr. Maury Fuller. * Neuropathic pain - Gabapentin 100MG BID. * Hypothyroidism - Levothyroxine 100MCG daily. * Duodenal ulcer/UGIB - Pantoprazole 40MG BID, monitor H&H. * Gout - Prednisone 20MG daily thru 08/15/2018, consider uric acid lowering agents such as Allopurinol or Uloric. * Osteoporosis - Actonel 35MG Qmonth. * Acute on chronic systolic congestive heart failure (EF 35%) - Coreg 12.5MG BID, Rx Entresto 24/26MG BID x 2 weeks, 49/51MG BID x 2 weeks, then 97/103MG BID, monitor blood pressure, electrolytes, adding Entresto will decrease risk of mortality, hospitalization from heart failure.
[2018-08-13] MEDS: Carvedilol 12.5 MG Tablet PO (18:34)
[2018-08-13] MEDS: Pantoprazole Sodium 40 MG Tablet PO (18:34)
[2018-08-13] MEDS: Gabapentin 100 MG Capsule PO (18:35)
[2018-08-13] MEDS: Senna/Docusate Sodium 1 Tablet PO (18:44)
[2018-08-13] MEDS: SACUBITRIL/VALSARTAN 24/26 MG TABLET 1 EACH PO (18:44)
[2018-08-13] MEDS: Acetaminophen 500 MG Tablet 1000 MG PO (21:27)
[2018-08-13] MEDS: traMADol 50 MG Tablet PO (21:28)
[2018-08-13] MEDS: LORazepam 1 MG Tablet 0.5 MG PO (21:28)
[2018-08-14] MEDS: Carvedilol 12.5 MG Tablet PO ×2 (05:48→19:00)
[2018-08-14] MEDS: SACUBITRIL/VALSARTAN 24/26 MG TABLET 1 EACH PO ×2 (05:48→19:00)
[2018-08-14] MEDS: Clopidogrel Bisulfate 75 MG Tablet PO (05:48)
[2018-08-14] MEDS: Levothyroxine 100 MCG Tablet PO (05:49)
[2018-08-14] MEDS: Pantoprazole Sodium 40 MG Tablet PO ×2 (05:49→19:00)
[2018-08-14 07:19] LABS: Absolute Lymphocyte Count 0.66 X10^3/ul (0.83-4.51); Absolute Neutrophil Count 7.5 X10^3/uL (2.0-7.7); Hematocrit 29.2 % (37-47); Lymphocyte # 0.66 X10^3/ul (4.0); Lymphocyte % 7.7 % (19-41); Mean Corp Hgb Conc 30.8 g/gl (32-36); Mean Corpuscular Hgb 30.9 pg (27.0-32.0); Mean Corpuscular Volume 100.3 fL (81-99); Mean Platelet Vol. 10.1 fl (6.2-12.0); Monocyte# 0.41 X10^3/uL; Monocyte% 4.8 % (0-10); Neutrophil # 7.52 X10^3/uL (2.7-7.7); Neutrophil % 87.2 % (47-70); Platelet Count 399 K/mm3 (150-450); RBC Distribution Width CV 15.7 % (11.6-14.6); RBC Distribution Width SD 54.4 fl (35.1-43.9); Red Blood Count 2.91 M/mm3 (4.2-5.4); White Blood Count 8.6 K/mm3 (4.4-11.0)
[2018-08-14 07:22] LABS: POSITIVE COUNT NO; POSITIVE DIFFERENTIAL NO; POSITIVE MORPHOLOGY NO
[2018-08-14 07:56] LABS: Anion Gap 9 (5-15); BUN 41 mg/dL (7-18); BUN/Creat Ratio 31.8 RATIO (10-20); Calcium,Total 9.7 mg/dL (8.5-10.1); Chloride 106 mmol/L (98-107); Creatinine, Serum 1.29 mg/dL (0.55-1.02); EST Glomerular Filtration Rate 42 mL/min (>60); Est Glom Filt Rate - Afr Amer 51 mL/min (>60); Estimated Creatinine Clearance 27.05 ml/min; Glucose 133 mg/dL (74-106); Potassium 5.1 mmol/L (3.5-5.1); Sodium Level 141 mmol/L (136-145)
[2018-08-14] MEDS: predniSONE 20 MG Tablet PO (09:07)
[2018-08-14] MEDS: Gabapentin 100 MG Capsule PO ×2 (09:07→19:00)
[2018-08-14] MEDS: Tuberculin,Purif.prot.deriv. 50 TU/ML Vial 5 ML ID (11:21)
[2018-08-14] MEDS: traMADol 50 MG Tablet PO (20:44)
[2018-08-14] MEDS: LORazepam 1 MG Tablet 0.5 MG PO (20:44)
[2018-08-14 20:48] VITALS: PULSE 74; RESP 18; O2SAT 94
[2018-08-15] MEDS: Clopidogrel Bisulfate 75 MG Tablet PO (06:30)
[2018-08-15] MEDS: Pantoprazole Sodium 40 MG Tablet PO ×2 (06:30→17:50)
[2018-08-15] MEDS: Carvedilol 12.5 MG Tablet PO ×2 (06:30→17:50)
[2018-08-15] MEDS: SACUBITRIL/VALSARTAN 24/26 MG TABLET 1 EACH PO ×2 (06:30→17:50)
[2018-08-15] MEDS: Levothyroxine 100 MCG Tablet PO (06:30)
--- NOTE | 2018-08-15 06:56 | NURSING ---
Code status discussed with pt at this time. Wishes to be Full Code.
[2018-08-15 07:12] VITALS: O2SAT 95
[2018-08-15] MEDS: predniSONE 20 MG Tablet PO (08:54)
[2018-08-15] MEDS: Gabapentin 100 MG Capsule PO ×2 (08:54→17:50)
[2018-08-15] MEDS: traMADol 50 MG Tablet PO (08:58)
[2018-08-15 16:00] VITALS: BP 149/59; PULSE 64; RESP 18; TEMP 36.7; O2SAT 95
[2018-08-15] MEDS: LORazepam 1 MG Tablet 0.5 MG PO (21:01)
[2018-08-15 21:04] VITALS: PULSE 61; RESP 16; O2SAT 95
[2018-08-16] MEDS: Clopidogrel Bisulfate 75 MG Tablet PO (06:54)
[2018-08-16] MEDS: Pantoprazole Sodium 40 MG Tablet PO ×2 (06:54→17:27)
[2018-08-16] MEDS: SACUBITRIL/VALSARTAN 24/26 MG TABLET 1 EACH PO ×2 (06:54→17:27)
[2018-08-16] MEDS: Levothyroxine 100 MCG Tablet PO (06:54)
[2018-08-16] MEDS: Carvedilol 12.5 MG Tablet PO ×2 (06:54→17:27)
[2018-08-16] MEDS: Gabapentin 100 MG Capsule PO ×2 (08:32→17:27)
[2018-08-16 10:00] VITALS: PULSE 66; RESP 18; O2SAT 94
[2018-08-16 11:09] VITALS: O2SAT 96
[2018-08-16 15:15] VITALS: BP 106/50; PULSE 60; RESP 20; TEMP 36.9; O2SAT 96
[2018-08-16] MEDS: traMADol 50 MG Tablet PO (21:33)
--- NOTE | 2018-08-16 23:56 | EKG12_ITS ---
Test Reason : CP Blood Pressure : / mmHG Vent. Rate : 064 BPM Atrial Rate : 064 BPM P-R Int : 204 ms QRS Dur : 156 ms QT Int : 450 ms P-R-T Axes : 072 268 070 degrees QTc Int : 464 ms Electronic ventricular pacemaker Confirmed by GILBERT YOU, BRENDAN ([id number]), deputy editor in chief MARIBEL VAZQUEZ ([id number] on 08/19/2018 3:40:47 PM Referred By: REBECA Confirmed By:BRENDAN HUNT MD
[2018-08-16 23:58] VITALS: BP 154/67; PULSE 63
[2018-08-17 00:12] VITALS: BP 133/66; PULSE 65
--- NOTE | 2018-08-17 00:35 | NURSING ---
RN called into room. Pt c/o mid branch pain radiates over right breast. Pt rates pain 5/10 and described pain as pressure. Vitals obtained. No visible distress noted. X1 Nitro administered, EKG obtained. Pt continued talking to staff. Pt informed staff she has chronic pain on the right side of body and has had muscles torn from right arm. Pt informed staff she has had left sided upper chest pain in the past. 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 As RN tries to clarify pt hx with pt, pt hx continues to vary. Pt talking about Tania and smiling. Upon re-evaluation pain rated at 4/10. Vitals obtained. Second nitro administered. Upon re-evaluation of second nitro, pt denies pressure but rates ache at a 1/10. Dr Barber notified. N.N.O. HIDE DYER informed RN pt's eyes closed and resting comfortably with call light in reach at 0045. Will continue to monitor asses as needed.
[2018-08-17] MEDS: Pantoprazole Sodium 40 MG Tablet PO ×2 (05:36→17:59)
[2018-08-17] MEDS: Levothyroxine 100 MCG Tablet PO (05:36)
[2018-08-17] MEDS: Carvedilol 12.5 MG Tablet PO ×2 (05:37→18:00)
[2018-08-17] MEDS: Clopidogrel Bisulfate 75 MG Tablet PO (05:37)
[2018-08-17] MEDS: SACUBITRIL/VALSARTAN 24/26 MG TABLET 1 EACH PO ×2 (05:37→17:59)
[2018-08-17 06:23] VITALS: O2SAT 97
[2018-08-17 07:00] VITALS: PULSE 63; RESP 16; O2SAT 98
[2018-08-17] MEDS: Gabapentin 100 MG Capsule PO ×2 (08:29→17:59)
[2018-08-17] MEDS: traMADol 50 MG Tablet PO ×2 (08:29→17:58)
--- NOTE | 2018-08-17 14:19 | CASEMGMT ---
Plan of care meeting held. Resident present as well as resident family. No discharge date set at this time. Resident plans to discharge to home with spouse at time of discharge. Resident to continue with further care and treatment on the Transitional Care Unit. Support given. Will continue to follow. ANAT Quinn, INSTANT POWDER SUPERVISOR
--- NOTE | 2018-08-17 15:24 | PCM.PN.RX ---
<NerySuhas green - Last Filed: 08/17/18 15:24> Progress Note - Pharmacy Subjective: TCU Admission Objective: Allergies alendronate sodium [From Fosamax] Allergy (Verified 08/03/18 02:29) Other nitrofurantoin [From Macrodantin] Allergy (Verified 08/03/18 02:29) Rash oxycodone [From Percocet] Allergy (Verified 08/03/18 02:29) Other quinapril [From Accupril] Allergy (Verified 08/03/18 02:29) Rash atorvastatin [From Lipitor] Adverse Reaction (Verified 08/03/18 02:29) Pain in joints diclofenac [From Arthrotec 50] Adverse Reaction (Verified 08/03/18 02:29) Upset Stomach misoprostol [From Arthrotec 50] Adverse Reaction (Verified 08/03/18 02:29) Upset Stomach Current Medications Generic Name Dose Route Start Last Admin Trade Name Freq PRN Reason Stop Dose Admin Acetaminophen 1,000 mg 08/13/18 17:14 08/13/18 21:27 Tylenol PO 1,000 mg Q6H PRN Administration MILD PAIN (1-3/10) Bisacodyl 10 mg 08/13/18 15:37 Dulcolax PO DAILY PRN Constipation Carvedilol 12.5 mg 08/13/18 18:00 08/17/18 05:37 Coreg PO 12.5 mg BID JERSON Administration Cholecalciferol 2,000 unit 08/14/18 06:00 08/17/18 05:37 Vitamin D PO 2,000 unit DAILY JRESON Administration Clopidogrel Bisulfate 75 mg 08/14/18 06:00 08/17/18 05:37 Plavix PO 75 mg DAILY JERSON Administration Gabapentin 100 mg 08/13/18 17:00 08/17/18 08:29 Neurontin PO 100 mg BIDCM JERSON Administration Levothyroxine Sodium 100 mcg 08/14/18 06:00 08/17/18 05:36 Synthroid PO 100 mcg DAILY@0600 JERSON Administration Lorazepam 0.5 mg 08/13/18 15:35 08/15/18 21:01 Ativan PO 0.5 mg QHS PRN PRN Administration INSOMNIA Nitroglycerin 0.4 mg 08/13/18 15:35 08/17/18 00:12 Nitrostat SUBLINGUAL 0.4 mg Q5M PRN Administration CHEST PAIN Pantoprazole Sodium 40 mg 08/13/18 18:00 08/17/18 05:36 Protonix PO 40 mg BID JERSON Administration Polyethylene Glycol 17 gm 08/14/18 06:00 08/17/18 05:37 Miralax PO Not Given DAILY JERSON Risedronate 35 mg 08/21/18 06:00 Actonel PO Du@0600 JERSON Senna/Docusate Sodium 1 tablet 08/13/18 18:00 08/17/18 05:37 Senokot-S, Alem-Colace PO Not Given BID JERSON Tramadol HCl 50 mg 08/13/18 17:14 08/17/18 08:29 Ultram PO 50 mg TID PRN PRN Administration MODERATE PAIN (4-5/10) Tuberculin PPD 5 tu 08/21/18 10:00 Tubersol, Aplisol, Ppd ID 08/21/18 10:01 X1 ONE Problem List (Last Reviewed 08/03/18 @ 07:33 by Messi Hendricks MD) Gout (Acute) Acute on chronic kidney failure (Acute) Goiter (Chronic) Hyperlipidemia (Chronic) Anxiety (Chronic) Vital Signs Temp Pulse Resp BP Pulse Ox 98.5 F 63 16 133/66 H 98 08/16/18 15:15 08/17/18 07:00 08/17/18 07:00 08/17/18 00:12 08/17/18 07:00 Oxygen Delivery Method Room Air Weight: 54.4 kg Body Mass Index (BMI) 21.9 Sodium 141 mmol/L (136-145) 08/14/18 07:10 Potassium 5.1 mmol/L (3.5-5.1) 08/14/18 07:10 Chloride 106 mmol/L (98-107) 08/14/18 07:10 Carbon Dioxide 26.0 mmol/L (21.0-32.0) 08/14/18 07:10 Anion Gap 9 (5-15) 08/14/18 07:10 BUN 41 mg/dL (7-18) H 08/14/18 07:10 Creatinine 1.29 mg/dL (0.55-1.02) H 08/14/18 07:10 Est GFR (MDRD) Af Amer 51 mL/min (>60) L 08/14/18 07:10 Est GFR (MDRD) Non-Af 42 mL/min (>60) L 08/14/18 07:10 BUN/Creatinine Ratio 31.8 RATIO (10-20) H 08/14/18 07:10 Glucose 133 mg/dL (74-106) H 08/14/18 07:10 Assessment/Plan: 1) Pain APAP for mild pain, tramadol for moderate pain, gabapentin. Continue to monitor prn medication use, daily pain scores. 2) CHF/CAD Sacubitril/valsartan, carvedilol, clopidogrel, prn ntg. Continue to monitor BP/HR, renal function, electrolytes, for chest pain. * 3) Osteoporosis Risedronate weekly. Continue to monitor clinically. * Resident's crcl is < 30 mL/min. Per mfr, use of risedronate is not recommended. 4) Hypothyroidism Levothyroxine daily. Continue to monitor s/s hyper/hypothyroidism. 5) GI Pantoprazole twice daily. Continue to monitor s/s GI distress. Psychotropic Medications: 6) Insomnia Lorazepam at HS for sleep. Continue to monitor prn medication use. Unnecessary Medications: None Bowel Regimen: 7) Senna/s, PEG, prn bisacodyl. Continue to monitor prn medication use, for constipation/diarrhea. Date of Note:: 08/17/18 - Provider Comments Provider responsibility: Provider responsible to enter orders to implement recommendations <Juvenal Barber Chi - Last Filed: 08/17/18 17:32> Progress Note - Pharmacy Subjective: [] Objective: Allergies alendronate sodium [From Fosamax] Allergy (Verified 08/03/18 02:29) Other nitrofurantoin [From Macrodantin] Allergy (Verified 08/03/18 02:29) Rash oxycodone [From Percocet] Allergy (Verified 08/03/18 02:29) Other quinapril [From Accupril] Allergy (Verified 08/03/18 02:29) Rash atorvastatin [From Lipitor] Adverse Reaction (Verified 08/03/18 02:29) Pain in joints diclofenac [From Arthrotec 50] Adverse Reaction (Verified 08/03/18 02:29) Upset Stomach misoprostol [From Arthrotec 50] Adverse Reaction (Verified 12/12/18 02:29) Upset Stomach Current Medications Generic Name Dose Route Start Last Admin Trade Name Freq PRN Reason Stop Dose Admin Acetaminophen 1,000 mg 08/13/18 17:14 08/13/18 21:27 Tylenol PO 1,000 mg Q6H PRN Administration MILD PAIN (1-3/10) Bisacodyl 10 mg 08/13/18 15:37 Dulcolax PO DAILY PRN Constipation Carvedilol 12.5 mg 08/13/18 18:00 08/17/18 05:37 Coreg PO 12.5 mg BID [facility] Administration Cholecalciferol 2,000 unit 08/14/18 06:00 08/17/18 05:37 Vitamin D PO 2,000 unit DAILY [facility] Administration Clopidogrel Bisulfate 75 mg 08/14/18 06:00 08/17/18 05:37 Plavix PO 75 mg DAILY [facility] Administration Gabapentin 100 mg 08/13/18 17:00 08/17/18 08:29 [facility] Levothyroxine Sodium 100 mcg 08/14/18 06:00 08/17/18 05:36 Synthroid PO 100 mcg DAILY@0600 [facility] Administration Lorazepam 0.5 mg 08/13/18 15:35 08/15/18 21:01 Ativan PO 0.5 mg QHS PRN PRN Administration INSOMNIA Nitroglycerin 0.4 mg 08/13/18 15:35 08/17/18 00:12 Nitrostat SUBLINGUAL 0.4 mg Q5M PRN Administration CHEST PAIN Pantoprazole Sodium 40 mg 08/13/18 18:00 08/17/18 05:36 Protonix PO 40 mg BID [facility] Administration Polyethylene Glycol 17 gm 08/14/18 06:00 08/17/18 05:37 Miralax PO Not Given DAILY [facility] Risedronate 35 mg 08/21/18 06:00 Actonel PO Du@0600 [facility] Senna/Docusate Sodium 1 tablet 08/13/18 18:00 08/17/18 05:37 Senokot-S, Alem-Colace PO Not Given BID [facility] Tramadol HCl 50 mg 08/13/18 17:14 08/17/18 08:29 Ultram PO 50 mg TID PRN PRN Administration MODERATE PAIN (4-5/10) Tuberculin PPD 5 tu 08/21/18 10:00 Tubersol, Aplisol, Ppd ID 08/21/18 10:01 X1 ONE Problem List (Last Reviewed 08/03/18 @ 07:33 by Messi Hendricks MD) Gout (Acute) Acute on chronic kidney failure (Acute) Goiter (Chronic) Hyperlipidemia (Chronic) Anxiety (Chronic) Vital Signs Temp Pulse Resp BP Pulse Ox 97.9 F 60 18 149/76 H 95 08/17/18 15:44 08/17/18 15:44 08/17/18 15:44 08/17/18 15:44 08/17/18 15:44 Oxygen Delivery Method Room Air Weight: 54.4 kg Body Mass Index (BMI) 21.9 Sodium 141 mmol/L (136-145) 08/14/18 07:10 Potassium 5.1 mmol/L (3.5-5.1) 08/14/18 07:10 Chloride 106 mmol/L (98-107) 08/14/18 07:10 Carbon Dioxide 26.0 mmol/L (21.0-32.0) 08/14/18 07:10 Anion Gap 9 (5-15) 08/14/18 07:10 BUN 41 mg/dL (7-18) H 08/14/18 07:10 Creatinine 1.29 mg/dL (0.55-1.02) H 08/14/18 07:10 Est GFR (MDRD) Af Amer 51 mL/min (>60) L 08/14/18 07:10 Est GFR (MDRD) Non-Af 42 mL/min (>60) L 08/14/18 07:10 BUN/Creatinine Ratio 31.8 RATIO (10-20) H 08/14/18 07:10 Glucose 133 mg/dL (74-106) H 08/14/18 07:10 Assessment/Plan: Psychotropic Medications: Unnecessary Medications: Bowel Regimen: - Provider Comments Provider responsibility: Provider responsible to enter orders to implement recommendations Provider Comments to Recommendations by Pharmacy: Agree
--- NOTE | 2018-08-17 15:34 | PHA.CONS_ITS ---
<NerySuhas green - Last Filed: 08/17/18 15:24> Progress Note - Pharmacy Subjective: TCU Admission Objective: Allergies alendronate sodium [From Fosamax] Allergy (Verified 08/03/18 02:29) Other nitrofurantoin [From Macrodantin] Allergy (Verified 08/03/18 02:29) Rash oxycodone [From Percocet] Allergy (Verified 08/03/18 02:29) Other quinapril [From Accupril] Allergy (Verified 08/03/18 02:29) Rash atorvastatin [From Lipitor] Adverse Reaction (Verified 08/03/18 02:29) Pain in joints diclofenac [From Arthrotec 50] Adverse Reaction (Verified 08/03/18 02:29) Upset Stomach misoprostol [From Arthrotec 50] Adverse Reaction (Verified 08/03/18 02:29) Upset Stomach Current Medications Generic Name Dose Route Start Last Admin Trade Name Freq PRN Reason Stop Dose Admin Acetaminophen 1,000 mg 08/13/18 17:14 08/13/18 21:27 Tylenol PO 1,000 mg Q6H PRN Administration MILD PAIN (1-3/10) Bisacodyl 10 mg 08/13/18 15:37 Dulcolax PO DAILY PRN Constipation Carvedilol 12.5 mg 08/13/18 18:00 08/17/18 05:37 Coreg PO 12.5 mg BID JERSON Administration Cholecalciferol 2,000 unit 08/14/18 06:00 08/17/18 05:37 Vitamin D PO 2,000 unit DAILY JERSON Administration Clopidogrel Bisulfate 75 mg 08/14/18 06:00 08/17/18 05:37 Plavix PO 75 mg DAILY JERSON Administration Gabapentin 100 mg 08/13/18 17:00 08/17/18 08:29 Neurontin PO 100 mg BIDCM JERSON Administration Levothyroxine Sodium 100 mcg 08/14/18 06:00 08/17/18 05:36 Synthroid PO 100 mcg DAILY@0600 JERSON Administration Lorazepam 0.5 mg 08/13/18 15:35 08/15/18 21:01 Ativan PO 0.5 mg QHS PRN PRN Administration INSOMNIA Nitroglycerin 0.4 mg 08/13/18 15:35 08/17/18 00:12 Nitrostat SUBLINGUAL 0.4 mg Q5M PRN Administration CHEST PAIN Pantoprazole Sodium 40 mg 08/13/18 18:00 08/17/18 05:36 Protonix PO 40 mg BID JERSON Administration Polyethylene Glycol 17 gm 08/14/18 06:00 08/17/18 05:37 Miralax PO Not Given DAILY JERSON Risedronate 35 mg 08/21/18 06:00 Actonel PO Du@0600 JERSON Senna/Docusate Sodium 1 tablet 08/13/18 18:00 08/17/18 05:37 Senokot-S, Alem-Colace PO Not Given BID JERSON Tramadol HCl 50 mg 08/13/18 17:14 08/17/18 08:29 Ultram PO 50 mg TID PRN PRN Administration MODERATE PAIN (4-5/10) Tuberculin PPD 5 tu 08/21/18 10:00 Tubersol, Aplisol, Ppd ID 08/21/18 10:01 X1 ONE Problem List (Last Reviewed 08/03/18 @ 07:33 by Messi Hendricks MD) Gout (Acute) Acute on chronic kidney failure (Acute) Goiter (Chronic) Hyperlipidemia (Chronic) Anxiety (Chronic) Vital Signs Temp Pulse Resp BP Pulse Ox 98.5 F 63 16 133/66 H 98 08/16/18 15:15 08/17/18 07:00 08/17/18 07:00 08/17/18 00:12 08/17/18 07:00 Oxygen Delivery Method Room Air Weight: 54.4 kg Body Mass Index (BMI) 21.9 Sodium 141 mmol/L (136-145) 08/14/18 07:10 Potassium 5.1 mmol/L (3.5-5.1) 08/14/18 07:10 Chloride 106 mmol/L (98-107) 08/14/18 07:10 Carbon Dioxide 26.0 mmol/L (21.0-32.0) 08/14/18 07:10 Anion Gap 9 (5-15) 08/14/18 07:10 BUN 41 mg/dL (7-18) H 08/14/18 07:10 Creatinine 1.29 mg/dL (0.55-1.02) H 08/14/18 07:10 Est GFR (MDRD) Af Amer 51 mL/min (>60) L 08/14/18 07:10 Est GFR (MDRD) Non-Af 42 mL/min (>60) L 08/14/18 07:10 BUN/Creatinine Ratio 31.8 RATIO (10-20) H 08/14/18 07:10 Glucose 133 mg/dL (74-106) H 08/14/18 07:10 Assessment/Plan: 1) Pain APAP for mild pain, tramadol for moderate pain, gabapentin. Continue to monitor prn medication use, daily pain scores. 2) CHF/CAD Sacubitril/valsartan, carvedilol, clopidogrel, prn ntg. Continue to monitor BP/HR, renal function, electrolytes, for chest pain. * 3) Osteoporosis Risedronate weekly. Continue to monitor clinically. * Resident's crcl is < 30 mL/min. Per mfr, use of risedronate is not recommended. 4) Hypothyroidism Levothyroxine daily. Continue to monitor s/s hyper/hypothyroidism. 5) GI Pantoprazole twice daily. Continue to monitor s/s GI distress. Psychotropic Medications: 6) Insomnia Lorazepam at HS for sleep. Continue to monitor prn medication use. Unnecessary Medications: None Bowel Regimen: 7) Senna/s, PEG, prn bisacodyl. Continue to monitor prn medication use, for constipation/diarrhea. Date of Note:: 08/17/18 - Provider Comments Provider responsibility: Provider responsible to enter orders to implement recommendations <Juvenal Barber Chi - Last Filed: 08/17/18 17:32> Progress Note - Pharmacy Subjective: [] Objective: Allergies alendronate sodium [From Fosamax] Allergy (Verified 08/03/18 02:29) Other nitrofurantoin [From Macrodantin] Allergy (Verified 08/03/18 02:29) Rash oxycodone [From Percocet] Allergy (Verified 08/03/18 02:29) Other quinapril [From Accupril] Allergy (Verified 08/03/18 02:29) Rash atorvastatin [From Lipitor] Adverse Reaction (Verified 08/03/18 02:29) Pain in joints diclofenac [From Arthrotec 50] Adverse Reaction (Verified 08/03/18 02:29) Upset Stomach misoprostol [From Arthrotec 50] Adverse Reaction (Verified 12/12/18 02:29) Upset Stomach Current Medications Generic Name Dose Route Start Last Admin Trade Name Freq PRN Reason Stop Dose Admin Acetaminophen 1,000 mg 08/13/18 17:14 08/13/18 21:27 Tylenol PO 1,000 mg Q6H PRN Administration MILD PAIN (1-3/10) Bisacodyl 10 mg 08/13/18 15:37 Dulcolax PO DAILY PRN Constipation Carvedilol 12.5 mg 08/13/18 18:00 08/17/18 05:37 Coreg PO 12.5 mg BID [facility] Administration Cholecalciferol 2,000 unit 08/14/18 06:00 08/17/18 05:37 Vitamin D PO 2,000 unit DAILY [facility] Administration Clopidogrel Bisulfate 75 mg 08/14/18 06:00 08/17/18 05:37 Plavix PO 75 mg DAILY [facility] Administration Gabapentin 100 mg 08/13/18 17:00 08/17/18 08:29 [facility] Administration Levothyroxine Sodium 100 mcg 08/14/18 06:00 08/17/18 05:36 Synthroid PO 100 mcg DAILY@0600 [facility] Administration Lorazepam 0.5 mg 08/13/18 15:35 08/15/18 21:01 Ativan PO 0.5 mg QHS PRN PRN Administration INSOMNIA Nitroglycerin 0.4 mg 08/13/18 15:35 08/17/18 00:12 Nitrostat SUBLINGUAL 0.4 mg Q5M PRN Administration CHEST PAIN Pantoprazole Sodium 40 mg 08/13/18 18:00 08/17/18 05:36 Protonix PO 40 mg BID [facility] Administration Polyethylene Glycol 17 gm 08/14/18 06:00 08/17/18 05:37 Miralax PO Not Given DAILY [facility] Risedronate 35 mg 08/21/18 06:00 Actonel PO Du@0600 [facility] Senna/Docusate Sodium 1 tablet 08/13/18 18:00 08/17/18 05:37 Senokot-S, Alem-Colace PO Not Given BID [facility] Tramadol HCl 50 mg 08/13/18 17:14 08/17/18 08:29 Ultram PO 50 mg TID PRN PRN Administration MODERATE PAIN (4-5/10) Tuberculin PPD 5 tu 08/21/18 10:00 Tubersol, Aplisol, Ppd ID 08/21/18 10:01 X1 ONE Problem List (Last Reviewed 08/03/18 @ 07:33 by Messi Hendricks MD) Gout (Acute) Acute on chronic kidney failure (Acute) Goiter (Chronic) Hyperlipidemia (Chronic) Anxiety (Chronic) Vital Signs Temp Pulse Resp BP Pulse Ox 97.9 F 60 18 149/76 H 95 08/17/18 15:44 08/17/18 15:44 08/17/18 15:44 08/17/18 15:44 08/17/18 15:44 Oxygen Delivery Method Room Air Weight: 54.4 kg Body Mass Index (BMI) 21.9 Sodium 141 mmol/L (136-145) 08/14/18 07:10 Potassium 5.1 mmol/L (3.5-5.1) 08/14/18 07:10 Chloride 106 mmol/L (98-107) 08/14/18 07:10 Carbon Dioxide 26.0 mmol/L (21.0-32.0) 08/14/18 07:10 Anion Gap 9 (5-15) 08/14/18 07:10 BUN 41 mg/dL (7-18) H 08/14/18 07:10 Creatinine 1.29 mg/dL (0.55-1.02) H 08/14/18 07:10 Est GFR (MDRD) Af Amer 51 mL/min (>60) L 08/14/18 07:10 Est GFR (MDRD) Non-Af 42 mL/min (>60) L 08/14/18 07:10 BUN/Creatinine Ratio 31.8 RATIO (10-20) H 08/14/18 07:10 Glucose 133 mg/dL (74-106) H 08/14/18 07:10 Assessment/Plan: Psychotropic Medications: Unnecessary Medications: Bowel Regimen: - Provider Comments Provider responsibility: Provider responsible to enter orders to implement recommendations Provider Comments to Recommendations by Pharmacy: Agree
[2018-08-17 15:44] VITALS: BP 149/76; PULSE 60; RESP 18; TEMP 36.6; O2SAT 95
[2018-08-17] MEDS: LORazepam 1 MG Tablet 0.5 MG PO (20:38)
[2018-08-18] MEDS: SACUBITRIL/VALSARTAN 24/26 MG TABLET 1 EACH PO ×2 (06:29→17:21)
[2018-08-18] MEDS: Clopidogrel Bisulfate 75 MG Tablet PO (06:29)
[2018-08-18] MEDS: Pantoprazole Sodium 40 MG Tablet PO ×2 (06:29→17:21)
[2018-08-18] MEDS: Levothyroxine 100 MCG Tablet PO (06:29)
[2018-08-18] MEDS: Carvedilol 12.5 MG Tablet PO ×2 (06:29→17:21)
[2018-08-18] MEDS: traMADol 50 MG Tablet PO (06:33)
[2018-08-18] MEDS: Gabapentin 100 MG Capsule PO ×2 (08:02→17:21)
[2018-08-18 10:00] VITALS: PULSE 68; RESP 16; O2SAT 94
[2018-08-18] MEDS: Acetaminophen 500 MG Tablet 1000 MG PO (14:58)
[2018-08-18 15:30] VITALS: BP 135/66; PULSE 70; RESP 18; TEMP 37.3; O2SAT 97
--- NOTE | 2018-08-18 17:52 | NURSING ---
Patient has c/o gout pain to right foot and knee. Dr. Barber updated. NO for colchicine daily and medrol dosepak.
[2018-08-18] MEDS: MethylPREDNISolone DosePak 4 MG BOX PO (20:39)
[2018-08-19] MEDS: Carvedilol 12.5 MG Tablet PO ×2 (05:12→16:59)
[2018-08-19] MEDS: Pantoprazole Sodium 40 MG Tablet PO ×2 (05:12→16:59)
[2018-08-19] MEDS: SACUBITRIL/VALSARTAN 24/26 MG TABLET 1 EACH PO ×2 (05:12→16:59)
[2018-08-19] MEDS: Clopidogrel Bisulfate 75 MG Tablet PO (05:12)
[2018-08-19] MEDS: Bisacodyl 5 MG Tablet 10 MG PO (05:12)
[2018-08-19] MEDS: Levothyroxine 100 MCG Tablet PO (05:12)
[2018-08-19] MEDS: Senna/Docusate Sodium 1 Tablet PO (05:13)
[2018-08-19] MEDS: Gabapentin 100 MG Capsule PO ×2 (08:32→16:49)
[2018-08-19] MEDS: MethylPREDNISolone DosePak 4 MG BOX PO ×4 (08:32→21:09)
[2018-08-19] MEDS: traMADol 50 MG Tablet PO (08:34)
--- NOTE | 2018-08-19 11:36 | CASEMGMT ---
Brief interview for mental status (BIMS) and resident mood interview (PHQ-9) completed on this day. BIMS score 1315. PHQ-9 score 10/19
--- NOTE | 2018-08-19 13:08 | MDS.RN ---
Pain interview for mateusz 08/20/18 completed.
[2018-08-19 15:37] VITALS: BP 128/61; PULSE 60; RESP 18; TEMP 36.7; O2SAT 96
[2018-08-19 20:41] VITALS: PULSE 68; RESP 18; O2SAT 95
[2018-08-19] MEDS: LORazepam 1 MG Tablet 0.5 MG PO (21:15)
[2018-08-20] MEDS: Carvedilol 12.5 MG Tablet PO ×2 (05:59→16:57)
[2018-08-20] MEDS: SACUBITRIL/VALSARTAN 24/26 MG TABLET 1 EACH PO ×2 (05:59→16:57)
[2018-08-20] MEDS: Clopidogrel Bisulfate 75 MG Tablet PO (05:59)
[2018-08-20] MEDS: Pantoprazole Sodium 40 MG Tablet PO ×2 (05:59→16:57)
[2018-08-20] MEDS: Levothyroxine 100 MCG Tablet PO (06:00)
[2018-08-20] MEDS: Senna/Docusate Sodium 1 Tablet PO (06:00)
[2018-08-20] MEDS: traMADol 50 MG Tablet PO ×2 (06:04→23:02)
[2018-08-20] MEDS: MethylPREDNISolone DosePak 4 MG BOX PO ×4 (07:56→21:09)
[2018-08-20] MEDS: Gabapentin 100 MG Capsule PO ×2 (07:57→16:56)
[2018-08-20 10:00] VITALS: PULSE 68; RESP 18; O2SAT 95
[2018-08-20 15:17] VITALS: BP 146/56; PULSE 64; RESP 18; TEMP 36.8; O2SAT 94
[2018-08-20] MEDS: LORazepam 1 MG Tablet 0.5 MG PO (21:17)
[2018-08-21] MEDS: SACUBITRIL/VALSARTAN 24/26 MG TABLET 1 EACH PO ×2 (05:40→17:51)
[2018-08-21] MEDS: Clopidogrel Bisulfate 75 MG Tablet PO (05:40)
[2018-08-21] MEDS: Pantoprazole Sodium 40 MG Tablet PO ×2 (05:40→17:51)
[2018-08-21] MEDS: Carvedilol 12.5 MG Tablet PO ×2 (05:40→17:52)
[2018-08-21] MEDS: Senna/Docusate Sodium 1 Tablet PO (05:40)
[2018-08-21] MEDS: Levothyroxine 100 MCG Tablet PO (05:40)
[2018-08-21 06:06] LABS: Absolute Lymphocyte Count 1.04 X10^3/ul (0.83-4.51); Absolute Neutrophil Count 10.1 X10^3/uL (2.0-7.7); Hematocrit 32.9 % (37-47); Lymphocyte # 1.04 X10^3/ul (4.0); Mean Corp Hgb Conc 30.4 g/gl (32-36); Mean Corpuscular Hgb 30.8 pg (27.0-32.0); Mean Corpuscular Volume 101.2 fL (81-99); Mean Platelet Vol. 9.8 fl (6.2-12.0); Monocyte# 0.42 X10^3/uL; Monocyte% 3.6 % (0-10); Neutrophil # 10.07 X10^3/uL (2.7-7.7); Platelet Count 455 K/mm3 (150-450); RBC Distribution Width CV 16.5 % (11.6-14.6); RBC Distribution Width SD 59.7 fl (35.1-43.9); Red Blood Count 3.25 M/mm3 (4.2-5.4); White Blood Count 11.6 K/mm3 (4.4-11.0)
[2018-08-21 06:18] LABS: POSITIVE COUNT NO; POSITIVE DIFFERENTIAL NO; POSITIVE MORPHOLOGY NO
[2018-08-21 06:27] LABS: Anion Gap 9 (5-15); BUN 33 mg/dL (7-18); BUN/Creat Ratio 31.7 RATIO (10-20); Calcium,Total 9.6 mg/dL (8.5-10.1); Chloride 108 mmol/L (98-107); Creatinine, Serum 1.04 mg/dL (0.55-1.02); EST Glomerular Filtration Rate 54 mL/min (>60); Est Glom Filt Rate - Afr Amer 65 mL/min (>60); Estimated Creatinine Clearance 33.55 ml/min; Glucose 115 mg/dL (74-106); Potassium 4.5 mmol/L (3.5-5.1); Sodium Level 143 mmol/L (136-145)
[2018-08-21] MEDS: MethylPREDNISolone DosePak 4 MG BOX PO ×3 (08:03→20:10)
[2018-08-21] MEDS: Gabapentin 100 MG Capsule PO ×2 (08:04→17:51)
[2018-08-21 10:00] VITALS: PULSE 74; RESP 18; O2SAT 94
--- NOTE | 2018-08-21 13:43 | NURSING ---
pt with 2+pitting edema to BLE's, wt gain 6 lbs in one week[address] cortez notified, new order to restart lasix at 40 daily starting now. recheck bmp on
[2018-08-21] MEDS: Furosemide 40 MG Tablet PO (14:11)
[2018-08-21] MEDS: Tuberculin,Purif.prot.deriv. 50 TU/ML Vial 5 ML ID (14:12)
[2018-08-21 15:50] VITALS: BP 133/52; PULSE 58; RESP 16; TEMP 37; O2SAT 97
[2018-08-21] MEDS: traMADol 50 MG Tablet PO (20:13)
[2018-08-21] MEDS: LORazepam 1 MG Tablet 0.5 MG PO (20:23)
[2018-08-22] MEDS: Carvedilol 12.5 MG Tablet PO ×2 (05:24→18:11)
[2018-08-22] MEDS: Pantoprazole Sodium 40 MG Tablet PO ×2 (05:25→18:12)
[2018-08-22] MEDS: Levothyroxine 100 MCG Tablet PO (05:25)
[2018-08-22] MEDS: SACUBITRIL/VALSARTAN 24/26 MG TABLET 1 EACH PO ×2 (05:25→18:12)
[2018-08-22] MEDS: Clopidogrel Bisulfate 75 MG Tablet PO (05:25)
[2018-08-22] MEDS: MethylPREDNISolone DosePak 4 MG BOX PO ×2 (08:21→20:07)
[2018-08-22] MEDS: Gabapentin 100 MG Capsule PO ×2 (08:21→18:11)
[2018-08-22] MEDS: Furosemide 40 MG Tablet PO (12:02)
[2018-08-22] MEDS: traMADol 50 MG Tablet PO ×2 (14:15→20:06)
[2018-08-22 17:49] VITALS: BP 155/66; PULSE 65; RESP 20; TEMP 37; O2SAT 95
[2018-08-22 19:30] VITALS: PULSE 66; O2SAT 98
[2018-08-22] MEDS: LORazepam 1 MG Tablet 0.5 MG PO (20:05)
[2018-08-23] MEDS: SACUBITRIL/VALSARTAN 24/26 MG TABLET 1 EACH PO ×2 (05:36→17:37)
[2018-08-23] MEDS: Carvedilol 12.5 MG Tablet PO ×2 (05:36→17:37)
[2018-08-23] MEDS: Levothyroxine 100 MCG Tablet PO (05:37)
[2018-08-23] MEDS: Clopidogrel Bisulfate 75 MG Tablet PO (05:37)
[2018-08-23] MEDS: Pantoprazole Sodium 40 MG Tablet PO ×2 (05:37→17:37)
[2018-08-23] MEDS: traMADol 50 MG Tablet PO ×2 (05:42→19:55)
[2018-08-23 06:00] VITALS: PULSE 76; RESP 18; O2SAT 96
[2018-08-23 06:59] LABS: Anion Gap 10 (5-15); BUN 35 mg/dL (7-18); BUN/Creat Ratio 31.8 RATIO (10-20); Calcium,Total 9.2 mg/dL (8.5-10.1); Chloride 104 mmol/L (98-107); EST Glomerular Filtration Rate 51 mL/min (>60); Est Glom Filt Rate - Afr Amer 61 mL/min (>60); Estimated Creatinine Clearance 31.72 ml/min; Glucose 93 mg/dL (74-106); Potassium 4.2 mmol/L (3.5-5.1); Sodium Level 142 mmol/L (136-145)
[2018-08-23] MEDS: MethylPREDNISolone DosePak 4 MG BOX PO (07:50)
[2018-08-23] MEDS: Gabapentin 100 MG Capsule PO ×2 (07:50→17:37)
[2018-08-23] MEDS: Furosemide 40 MG Tablet PO (11:11)
--- NOTE | 2018-08-23 13:25 | NURSING ---
Addendum entered by Neda Henderson 08/23/18 15:03: updated and , RSV teaching sheet given Original Note: Addendum entered by Neda Henderson 08/23/18 13:43: Dr Barber updated on lab results. no new orders. Original Note: PT respiratory panel positive for RSV, placed into isolation for droplet and contact.
[2018-08-23 15:43] VITALS: BP 140/67; PULSE 73; RESP 18; TEMP 37.1; O2SAT 94
--- NOTE | 2018-08-23 18:51 | NURSING ---
ALL CARE GIVEN IN PT ROOM DUE TO PT IN PRECAUTIONS FOR RSV.
[2018-08-23 19:45] VITALS: BP 175/82; PULSE 75
--- NOTE | 2018-08-23 19:45 | NURSING ---
Addendum entered by Brie Haskins 08/23/18 20:42: Dr. Barber aware of all. Will continue to monitor. Original Note: Addendum entered by Brie Haskins 08/23/18 20:36: Pt c/o chest pain on left side of chest now under pacemaker. BP 146/75, HR 73. Pt agreeable to take second dose of nitro at this time. Original Note: After assisting pt to bathroom, pt c/o pain to her right side of chest, feeling nauseous, and having right knee pain. Vitals taken-bp 175/82, HR 75, temp 98.6, resp 20, and 95% on room air. Administered 1 nitro per pt request. Reassessed vitals at 1950, bp 151/73, HR 73, 94% room air, resp 20. Pt still continuing to have pain on right side of chest and right knee, refusing to take another dose of nitro, but requesting PRN ativan and PRN ultram for pain in her right knee. Pt stating give me anything I can have to knock me out for the night. EKG ordered. Will continue to monitor.
[2018-08-23] MEDS: LORazepam 1 MG Tablet 0.5 MG PO (19:55)
--- NOTE | 2018-08-23 20:07 | EKG12_ITS ---
Test Reason : CHEST PAIN Blood Pressure : / mmHG Vent. Rate : 071 BPM Atrial Rate : 071 BPM P-R Int : 180 ms QRS Dur : 158 ms QT Int : 438 ms P-R-T Axes : 051 -74 090 degrees QTc Int : 475 ms Electronic ventricular pacemaker Confirmed by GILBERT YOU, BRENDAN ([id number]), industrial editor MARIBEL VAZQUEZ ([id number] on 09/01/2018 11:12:51 AM Referred By: REBECA Confirmed By:BRENDAN HUNT MD
[2018-08-23 20:35] VITALS: BP 146/75; PULSE 73
--- NOTE | 2018-08-24 00:23 | NURSING ---
Pt remains in precautions w/RSV. All care/treatment provided in room.
[2018-08-24] MEDS: Clopidogrel Bisulfate 75 MG Tablet PO (06:09)
[2018-08-24] MEDS: Carvedilol 12.5 MG Tablet PO ×2 (06:09→18:00)
[2018-08-24] MEDS: SACUBITRIL/VALSARTAN 24/26 MG TABLET 1 EACH PO ×2 (06:09→18:01)
[2018-08-24] MEDS: Pantoprazole Sodium 40 MG Tablet PO ×2 (06:09→18:01)
[2018-08-24] MEDS: Levothyroxine 100 MCG Tablet PO (06:09)
--- NOTE | 2018-08-24 08:08 | NURSING ---
Dr. Barber reviewed EKG, NNO.
[2018-08-24] MEDS: Gabapentin 100 MG Capsule PO ×2 (08:24→18:01)
[2018-08-24 10:00] VITALS: PULSE 84; RESP 18; O2SAT 91
--- NOTE | 2018-08-24 11:35 | NURSING ---
Pt refusing Lasix at this time. Pt states she isnt feeling well and doesn't want the lasix today. Starr paiz
[2018-08-24] MEDS: traMADol 50 MG Tablet PO (13:09)
[2018-08-24 15:52] VITALS: BP 157/69; PULSE 73; RESP 20; TEMP 37.9; O2SAT 91
--- NOTE | 2018-08-24 17:59 | RAD_ITS ---
STUDY: X-RAY CHEST REASON FOR EXAM: Female, 82 years old. Cough. TECHNIQUE: Single AP portable view of the chest. COMPARISON: August 08, 2018. FINDINGS: Patient has had a sternotomy. Left-sided intracardiac pacemaker is present. There is hyperinflation of the lungs consistent with chronic obstructive lung disease (COPD). There is no demonstrated pleural abnormality. There is mild cardiac enlargement. Normal mediastinum and davi. There is prominence of the pulmonary hilar arteries without peripheral pulmonary vascular congestion. There is atherosclerotic calcification of the aortic arch with tortuosity. There is demineralization of the osseous structures. The patient has had previous right-sided shoulder surgery. Surgical clips are visible in the right axilla. There is no demonstrated abnormality of the visualized soft tissue structures of the upper abdomen. RAD/Chest 1 View (Portable) IMPRESSION: COPD and cardiomegaly without evidence of acute cardiopulmonary disease. Electronically Signed: Tonia Moya MD at 5:16 EST , Service support ,
[2018-08-24] MEDS: Acetaminophen 500 MG Tablet 1000 MG PO (18:01)
--- NOTE | 2018-08-24 18:13 | NURSING ---
Pt c/o general malaise and decreased appetite. Lungs with wheezing and rhonchi. Moist, productive cough with thick yellow phlegm. Dr. Barber updated. NO for cxr, robitussin DM 10mL q8habgf PRN, duonebs h6deaus, medrol dosepak and ceftin 500 p97blwtm x 10 days.
[2018-08-24 19:46] VITALS: PULSE 69; RESP 17
[2018-08-24] MEDS: Ipratropium/Albuterol Sulfate 3 ML AMPUL.NEB INHALATION (19:46)
[2018-08-24] MEDS: Cefdinir 300 MG Capsule PO (21:06)
[2018-08-24] MEDS: MethylPREDNISolone DosePak 4 MG BOX PO (21:07)
[2018-08-25] MEDS: traMADol 50 MG Tablet PO ×2 (04:15→20:40)
[2018-08-25] MEDS: Pantoprazole Sodium 40 MG Tablet PO ×2 (06:04→17:55)
[2018-08-25] MEDS: Carvedilol 12.5 MG Tablet PO ×2 (06:04→17:56)
[2018-08-25] MEDS: Levothyroxine 100 MCG Tablet PO (06:04)
[2018-08-25] MEDS: SACUBITRIL/VALSARTAN 24/26 MG TABLET 1 EACH PO ×2 (06:04→17:55)
[2018-08-25] MEDS: Cefdinir 300 MG Capsule PO ×2 (06:04→17:55)
[2018-08-25] MEDS: Clopidogrel Bisulfate 75 MG Tablet PO (06:04)
[2018-08-25 06:35] VITALS: PULSE 70; RESP 20
[2018-08-25] MEDS: Ipratropium/Albuterol Sulfate 3 ML AMPUL.NEB INHALATION ×2 (07:26→11:30)
--- NOTE | 2018-08-25 07:33 | NURSING ---
Pt remains in isolation for droplet and contact precautions at this time.
[2018-08-25] MEDS: Gabapentin 100 MG Capsule PO ×2 (09:34→17:56)
[2018-08-25] MEDS: MethylPREDNISolone DosePak 4 MG BOX PO ×4 (09:34→20:35)
--- NOTE | 2018-08-25 11:12 | NURSING ---
NO for sputum culture r/t yellow expectoration.
--- NOTE | 2018-08-25 11:23 | NURSING ---
Dr. Barber reviewed CXR, NNO.
[2018-08-25 11:30] VITALS: PULSE 74; RESP 20
[2018-08-25] MEDS: Furosemide 40 MG Tablet PO (11:57)
--- NOTE | 2018-08-25 11:58 | NURSING ---
ALL CARE GIVEN IN ROOM DUE TO PT IN PRECAUTIONS FOR RSV.
--- NOTE | 2018-08-25 13:33 | CASEMGMT ---
Brief interview for mental status (BIMS) and resident mood interview (PHQ-9) completed on this day. BIMS score 1315. PHQ-9 score 10/19
[2018-08-25 14:30] VITALS: PULSE 72; RESP 18; O2SAT 96
[2018-08-25] MEDS: guaiFENesin Dm 10 ML UDC PO ×2 (15:09→22:21)
[2018-08-25 15:45] VITALS: BP 124/73; PULSE 72; RESP 16; TEMP 37.7; O2SAT 94
[2018-08-25 17:59] VITALS: TEMP 37.2
[2018-08-25 19:50] VITALS: PULSE 74; RESP 20
[2018-08-25] MEDS: LORazepam 1 MG Tablet 0.5 MG PO (20:37)
[2018-08-26] MEDS: Polyethylene Glycol 3350 17 GM PACKET PO (05:02)
[2018-08-26] MEDS: SACUBITRIL/VALSARTAN 24/26 MG TABLET 1 EACH PO ×2 (05:04→17:25)
[2018-08-26] MEDS: Pantoprazole Sodium 40 MG Tablet PO ×2 (05:04→17:25)
[2018-08-26] MEDS: Carvedilol 12.5 MG Tablet PO ×2 (05:04→17:25)
[2018-08-26] MEDS: Cefdinir 300 MG Capsule PO ×2 (05:04→17:25)
[2018-08-26] MEDS: Clopidogrel Bisulfate 75 MG Tablet PO (05:05)
[2018-08-26] MEDS: Levothyroxine 100 MCG Tablet PO (05:05)
[2018-08-26] MEDS: guaiFENesin Dm 10 ML UDC PO ×2 (05:12→17:29)
[2018-08-26 06:50] VITALS: PULSE 79; RESP 18; O2SAT 95
[2018-08-26] MEDS: Ipratropium/Albuterol Sulfate 3 ML AMPUL.NEB INHALATION (06:50)
[2018-08-26] MEDS: Gabapentin 100 MG Capsule PO ×2 (07:55→17:25)
[2018-08-26] MEDS: MethylPREDNISolone DosePak 4 MG BOX PO ×4 (07:55→21:43)
--- NOTE | 2018-08-26 09:58 | MDS.RN ---
Information for the mds was obtained from review of the clinical record, interview of resident, staff, and direct observation of resident's care.
[2018-08-26] MEDS: Furosemide 40 MG Tablet PO (11:35)
--- NOTE | 2018-08-26 12:31 | NURSING ---
Pt remains in precautions for RSV-B this shift.
--- NOTE | 2018-08-26 14:05 | NURSING ---
pt requesting lasix be decreased, pt reports losing 8 lbs [address] Barber updated, new order to decrease to 20mg daily
[2018-08-26 15:05] VITALS: BP 140/76; PULSE 80; RESP 18; TEMP 36.6; O2SAT 94
--- NOTE | 2018-08-26 20:03 | NURSING ---
Pt remains in isolation precautions for RSV. All care provided in room.
[2018-08-26 20:04] VITALS: PULSE 74; RESP 18; O2SAT 93
[2018-08-26] MEDS: LORazepam 1 MG Tablet 0.5 MG PO (21:42)
[2018-08-26] MEDS: traMADol 50 MG Tablet PO (21:43)
[2018-08-27] MEDS: traMADol 50 MG Tablet PO ×2 (01:45→21:24)
[2018-08-27] MEDS: SACUBITRIL/VALSARTAN 24/26 MG TABLET 1 EACH PO ×2 (06:25→17:29)
[2018-08-27] MEDS: Cefdinir 300 MG Capsule PO ×2 (06:25→17:27)
[2018-08-27] MEDS: Clopidogrel Bisulfate 75 MG Tablet PO (06:26)
[2018-08-27] MEDS: Pantoprazole Sodium 40 MG Tablet PO ×2 (06:26→17:28)
[2018-08-27] MEDS: Carvedilol 12.5 MG Tablet PO ×2 (06:26→17:28)
[2018-08-27] MEDS: Levothyroxine 100 MCG Tablet PO (06:26)
[2018-08-27 06:32] VITALS: PULSE 80; RESP 16
[2018-08-27] MEDS: Ipratropium/Albuterol Sulfate 3 ML AMPUL.NEB INHALATION ×2 (06:32→18:45)
[2018-08-27] MEDS: Gabapentin 100 MG Capsule PO ×2 (08:33→17:28)
[2018-08-27] MEDS: MethylPREDNISolone DosePak 4 MG BOX PO ×3 (08:39→21:02)
[2018-08-27] MEDS: Furosemide 20 MG Tablet PO (11:27)
[2018-08-27 15:17] VITALS: BP 120/57; PULSE 70; RESP 18; TEMP 37.1; O2SAT 94
[2018-08-27 18:45] VITALS: PULSE 74; RESP 16; O2SAT 95
[2018-08-27 20:05] LABS: QNTFERON TB Mitogen Value > 10.00 IU/mL (.); QNTFERON TB Nil Value 0.27 IU/mL (.); QNTFERON TB1+ Ag Value 0.31 IU/mL (.); QNTFERON TB2+ Ag Value 0.31 IU/mL (.)
[2018-08-27 20:47] VITALS: PULSE 76; RESP 18; O2SAT 96
[2018-08-27] MEDS: LORazepam 1 MG Tablet 0.5 MG PO (21:23)
[2018-08-28] MEDS: SACUBITRIL/VALSARTAN 49-51 MG TABLET 1 EACH PO ×2 (05:41→17:23)
[2018-08-28] MEDS: Pantoprazole Sodium 40 MG Tablet PO ×2 (05:42→17:23)
[2018-08-28] MEDS: Carvedilol 12.5 MG Tablet PO ×2 (05:42→17:23)
[2018-08-28] MEDS: Cefdinir 300 MG Capsule PO ×2 (05:42→17:23)
[2018-08-28] MEDS: Levothyroxine 100 MCG Tablet PO (05:43)
[2018-08-28] MEDS: Clopidogrel Bisulfate 75 MG Tablet PO (05:43)
[2018-08-28] MEDS: Senna/Docusate Sodium 1 Tablet PO (05:43)
--- NOTE | 2018-08-28 05:48 | NURSING ---
All care provided in room pt remains in isolation precautions.
[2018-08-28] MEDS: Ipratropium/Albuterol Sulfate 3 ML AMPUL.NEB INHALATION ×3 (07:00→18:55)
[2018-08-28 07:04] VITALS: PULSE 77; RESP 21
[2018-08-28 07:22] LABS: Absolute Lymphocyte Count 1.22 X10^3/ul (0.83-4.51); Absolute Neutrophil Count 2.4 X10^3/uL (2.0-7.7); Basophil# 0.02 X10^3/uL; Basophil% 0.5 % (0-1); Eosinophil# 0.07 X10^3/uL; Eosinophils% 1.6 % (0-5); Hemoglobin 10.7 g/dl (12.0-15.0); Lymphocyte # 1.22 X10^3/ul (4.0); Mean Corp Hgb Conc 30.6 g/gl (32-36); Mean Corpuscular Hgb 30.1 pg (27.0-32.0); Mean Corpuscular Volume 98.6 fL (81-99); Mean Platelet Vol. 10.2 fl (6.2-12.0); Monocyte# 0.67 X10^3/uL; Monocyte% 15.4 % (0-10); Neutrophil # 2.36 X10^3/uL (2.7-7.7); Neutrophil % 54.3 % (47-70); Platelet Count 249 K/mm3 (150-450); RBC Distribution Width CV 16.2 % (11.6-14.6); RBC Distribution Width SD 57.4 fl (35.1-43.9); Red Blood Count 3.55 M/mm3 (4.2-5.4); White Blood Count 4.4 K/mm3 (4.4-11.0)
[2018-08-28 07:26] LABS: Differential Indicated SCAN CRITERIA MET; POSITIVE COUNT NO; POSITIVE DIFFERENTIAL NO; POSITIVE MORPHOLOGY YES
[2018-08-28 07:43] LABS: Anion Gap 9 (5-15); BUN 43 mg/dL (7-18); BUN/Creat Ratio 38.1 RATIO (10-20); Calcium,Total 9.2 mg/dL (8.5-10.1); Chloride 100 mmol/L (98-107); Creatinine, Serum 1.13 mg/dL (0.55-1.02); EST Glomerular Filtration Rate 49 mL/min (>60); Est Glom Filt Rate - Afr Amer 59 mL/min (>60); Estimated Creatinine Clearance 30.88 ml/min; Glucose 104 mg/dL (74-106); Potassium 3.6 mmol/L (3.5-5.1); Sodium Level 138 mmol/L (136-145)
[2018-08-28] MEDS: Gabapentin 100 MG Capsule PO ×2 (07:57→17:23)
[2018-08-28] MEDS: MethylPREDNISolone DosePak 4 MG BOX PO ×2 (07:57→19:51)
--- NOTE | 2018-08-28 08:41 | NURSING ---
ALL CARE GIVEN IN ROOM DUE TO PT IN PRECAUTIONS FOR RSV.
[2018-08-28] MEDS: Furosemide 20 MG Tablet PO (11:12)
[2018-08-28 13:16] VITALS: PULSE 71; RESP 17
[2018-08-28] MEDS: guaiFENesin Dm 10 ML UDC PO (13:40)
[2018-08-28] MEDS: traMADol 50 MG Tablet PO (13:40)
[2018-08-28 15:17] VITALS: BP 115/71; PULSE 80; RESP 18; TEMP 37.2; O2SAT 94; O2SAT 97
[2018-08-28 18:55] VITALS: PULSE 77; RESP 18; O2SAT 95
[2018-08-28] MEDS: LORazepam 1 MG Tablet 0.5 MG PO (20:03)
[2018-08-29 06:44] VITALS: PULSE 70; RESP 18
[2018-08-29] MEDS: Ipratropium/Albuterol Sulfate 3 ML AMPUL.NEB INHALATION ×2 (06:44→18:52)
[2018-08-29] MEDS: Pantoprazole Sodium 40 MG Tablet PO ×2 (06:50→17:44)
[2018-08-29] MEDS: SACUBITRIL/VALSARTAN 49-51 MG TABLET 1 EACH PO ×2 (06:51→17:44)
[2018-08-29] MEDS: Levothyroxine 100 MCG Tablet PO (06:51)
[2018-08-29] MEDS: Carvedilol 12.5 MG Tablet PO ×2 (06:51→17:47)
[2018-08-29] MEDS: Cefdinir 300 MG Capsule PO ×2 (06:51→17:44)
[2018-08-29] MEDS: Senna/Docusate Sodium 1 Tablet PO (06:51)
[2018-08-29] MEDS: Clopidogrel Bisulfate 75 MG Tablet PO (06:51)
[2018-08-29] MEDS: MethylPREDNISolone DosePak 4 MG BOX PO (08:05)
[2018-08-29] MEDS: Gabapentin 100 MG Capsule PO ×2 (08:05→17:44)
[2018-08-29 08:16] LABS: QNTIFERON TB Positive Criteria Negative (Negative)
[2018-08-29] MEDS: Furosemide 20 MG Tablet PO (11:16)
[2018-08-29 15:54] VITALS: BP 136/73; PULSE 81; RESP 18; TEMP 35.9; O2SAT 95
[2018-08-29 18:52] VITALS: PULSE 74; RESP 16; O2SAT 98
[2018-08-29] MEDS: LORazepam 1 MG Tablet 0.5 MG PO (20:08)
--- NOTE | 2018-08-29 22:46 | NURSING ---
All care given in pt room remains in precaution for RSV.
[2018-08-30] MEDS: traMADol 50 MG Tablet PO ×3 (00:54→21:50)
[2018-08-30] MEDS: Levothyroxine 100 MCG Tablet PO (05:48)
[2018-08-30] MEDS: Carvedilol 12.5 MG Tablet PO ×2 (05:48→17:16)
[2018-08-30] MEDS: SACUBITRIL/VALSARTAN 49-51 MG TABLET 1 EACH PO ×2 (05:48→17:16)
[2018-08-30] MEDS: Cefdinir 300 MG Capsule PO ×2 (05:48→17:16)
[2018-08-30] MEDS: Senna/Docusate Sodium 1 Tablet PO (05:48)
[2018-08-30] MEDS: Clopidogrel Bisulfate 75 MG Tablet PO (05:48)
[2018-08-30] MEDS: Pantoprazole Sodium 40 MG Tablet PO ×2 (05:48→17:16)
[2018-08-30] MEDS: guaiFENesin Dm 10 ML UDC PO ×3 (06:00→21:56)
[2018-08-30] MEDS: Ipratropium/Albuterol Sulfate 3 ML AMPUL.NEB INHALATION (07:08)
[2018-08-30 07:13] VITALS: PULSE 74; RESP 18
[2018-08-30] MEDS: Gabapentin 100 MG Capsule PO ×2 (07:35→17:16)
[2018-08-30] MEDS: Furosemide 20 MG Tablet PO (11:07)
[2018-08-30 13:00] VITALS: PULSE 73; RESP 18; O2SAT 96
[2018-08-30 15:33] VITALS: BP 129/61; PULSE 65; RESP 17; TEMP 36.6; O2SAT 97
[2018-08-30 17:22] VITALS: PULSE 60; RESP 18
--- NOTE | 2018-08-30 18:08 | NURSING ---
ALL CARE DONE IN ROOM DUE TO PT IN PRECAUTIONS FOR RSV.
[2018-08-30] MEDS: LORazepam 1 MG Tablet 0.5 MG PO (21:50)
--- NOTE | 2018-08-30 22:20 | NURSING ---
Pt remains in contact isolation precautions for RSV. All care provided in room.
[2018-08-31] MEDS: Senna/Docusate Sodium 1 Tablet PO (05:42)
[2018-08-31] MEDS: Carvedilol 12.5 MG Tablet PO ×2 (05:43→17:08)
[2018-08-31] MEDS: Pantoprazole Sodium 40 MG Tablet PO ×2 (05:43→17:08)
[2018-08-31] MEDS: SACUBITRIL/VALSARTAN 49-51 MG TABLET 1 EACH PO ×2 (05:43→17:08)
[2018-08-31] MEDS: Clopidogrel Bisulfate 75 MG Tablet PO (05:43)
[2018-08-31] MEDS: Levothyroxine 100 MCG Tablet PO (05:43)
[2018-08-31] MEDS: Gabapentin 100 MG Capsule PO ×2 (07:50→17:08)
[2018-08-31 09:03] VITALS: PULSE 64; RESP 18; O2SAT 95
[2018-08-31] MEDS: Ipratropium/Albuterol Sulfate 3 ML AMPUL.NEB INHALATION ×3 (09:03→19:20)
[2018-08-31] MEDS: Furosemide 20 MG Tablet PO (11:21)
[2018-08-31] MEDS: traMADol 50 MG Tablet PO ×2 (12:42→21:05)
[2018-08-31] MEDS: guaiFENesin Dm 10 ML UDC PO ×2 (12:42→21:08)
[2018-08-31 14:05] VITALS: PULSE 70; RESP 18
--- NOTE | 2018-08-31 14:06 | MDS.RN ---
Information for the mds was obtained from review of the clinical record, interview of resident, staff, and direct observation of resident's care.
[2018-08-31 15:01] VITALS: PULSE 67; RESP 18; O2SAT 93
[2018-08-31 15:30] VITALS: BP 111/49; PULSE 70; RESP 16; TEMP 37.2; O2SAT 92
[2018-08-31 19:20] VITALS: PULSE 73; RESP 18
[2018-08-31] MEDS: LORazepam 1 MG Tablet 0.5 MG PO (21:05)
--- NOTE | 2018-08-31 22:47 | NURSING ---
All care provided in room due to isolation.
[2018-09-01] MEDS: Carvedilol 12.5 MG Tablet PO ×2 (05:37→16:45)
[2018-09-01] MEDS: Clopidogrel Bisulfate 75 MG Tablet PO (05:38)
[2018-09-01] MEDS: SACUBITRIL/VALSARTAN 49-51 MG TABLET 1 EACH PO ×2 (05:38→16:45)
[2018-09-01] MEDS: Pantoprazole Sodium 40 MG Tablet PO ×2 (05:38→16:46)
[2018-09-01] MEDS: Levothyroxine 100 MCG Tablet PO (05:38)
[2018-09-01] MEDS: Ipratropium/Albuterol Sulfate 3 ML AMPUL.NEB INHALATION ×3 (06:53→19:29)
[2018-09-01 06:58] VITALS: PULSE 78; RESP 16; O2SAT 96
[2018-09-01] MEDS: Gabapentin 100 MG Capsule PO ×2 (07:51→16:45)
[2018-09-01] MEDS: traMADol 50 MG Tablet PO ×2 (09:25→20:38)
[2018-09-01] MEDS: Furosemide 20 MG Tablet PO (11:42)
[2018-09-01 13:00] VITALS: PULSE 79; RESP 16
[2018-09-01 15:16] VITALS: BP 115/52; PULSE 66; RESP 18; TEMP 37; O2SAT 97
[2018-09-01] MEDS: Senna/Docusate Sodium 1 Tablet PO (16:45)
[2018-09-01 19:29] VITALS: PULSE 69; RESP 18
[2018-09-01] MEDS: LORazepam 1 MG Tablet 0.5 MG PO (20:37)
[2018-09-01] MEDS: guaiFENesin Dm 10 ML UDC PO (20:38)
[2018-09-01 20:40] VITALS: PULSE 63; RESP 20; O2SAT 93
[2018-09-02] MEDS: Clopidogrel Bisulfate 75 MG Tablet PO (06:02)
[2018-09-02] MEDS: Levothyroxine 100 MCG Tablet PO (06:02)
[2018-09-02] MEDS: Carvedilol 12.5 MG Tablet PO ×2 (06:02→16:45)
[2018-09-02] MEDS: Pantoprazole Sodium 40 MG Tablet PO ×2 (06:02→16:45)
[2018-09-02] MEDS: SACUBITRIL/VALSARTAN 49-51 MG TABLET 1 EACH PO ×2 (06:02→16:45)
[2018-09-02] MEDS: Gabapentin 100 MG Capsule PO ×2 (08:07→16:45)
[2018-09-02 08:20] VITALS: O2SAT 95
[2018-09-02 10:00] VITALS: PULSE 68; RESP 20; O2SAT 94
[2018-09-02] MEDS: Furosemide 20 MG Tablet PO (11:18)
--- NOTE | 2018-09-02 11:40 | CASEMGMT ---
Social Work Spoke with resident in room. Resident requesting to discharge to home on 09/04/18. Team is agreeable to discharge date and recommending for resident to continue with physical and occupational therapy within the home at time of discharge. Resident is agreeable to recommendation and requesting for home health care to be set up through [facility] ([facility]). Resident reporting to be unsure if resident has a front wheeled walker already within the home and is agreeable to this social worker clinical contacting resident daughter, Krystin in regards to the walker as well as discharge plan. Resident reporting to have a nebulizer already set up within the home, if continued breathing treatments are required. Telephone call to jeanine Mcclelland inquiring about walker. Resident reporting that resident family will provide transportation home for resident at time of discharge. Support given[facility] This social worker clinical making referral for physical and occupational therapy. Order to be completed. Will continue to follow up on walker status. Proposed discharge date: 09/04/18 PLAN: Discharge to home with spouse and home health care. ZULEYMA Quinn, SALESMAN/OWNER
--- NOTE | 2018-09-02 11:45 | CASEMGMT ---
Brief interview for mental status (BIMS) and resident mood interview (PHQ-9) completed on this day. BIMS score 15. PHQ-9 score 09/18
--- NOTE | 2018-09-02 12:02 | CASEMGMT ---
Social Work Resident daughter, Krystin returning this social workers phone call. Treecie reporting that reporting that resident does have a front wheeled walker already set up within the home. Treecie agreeable to discharge date and plan. Support given. Proposed discharge date: 09/04/18 PLAN: Discharge to home with spouse and home health care. ZULEYMA Quinn, COMPOUND FINISHER
[2018-09-02 14:03] VITALS: PULSE 77; RESP 21
[2018-09-02] MEDS: Ipratropium/Albuterol Sulfate 3 ML AMPUL.NEB INHALATION (14:03)
--- NOTE | 2018-09-02 14:15 | DCINST_ITS ---
- Discharge Diagnoses Current Active Problems: Current Active and Chronic Problems (Last Reviewed 08/03/18 @ 07:33 by Messi Hendricks MD) Gout (Acute) Acute on chronic kidney failure (Acute) Goiter (Chronic) Hyperlipidemia (Chronic) Anxiety (Chronic) You will use the following diet at home:: No restrictions, Regular Your food should be the consistency of: Regular Your liquids should be the consistency of: Regular/Thin Discharge Activity: Return to Normal Activity, May Shower, Use Walker Weight Bearing Status: Weight bearing as tolerated Call your doctor if you observe: Fever of 101 or Higher, Inability to urinate, Inability to have a bowel movement, Shortness of breath, Chest pain, Uncontrolled pain Allergies/Adverse Reactions: Allergies alendronate sodium [From Fosamax] Allergy (Verified 08/03/18 02:29) Other nitrofurantoin [From Macrodantin] Allergy (Verified 08/03/18 02:29) Rash oxycodone [From Percocet] Allergy (Verified 08/03/18 02:29) Other quinapril [From Accupril] Allergy (Verified 08/03/18 02:29) Rash atorvastatin [From Lipitor] Adverse Reaction (Verified 08/03/18 02:29) Pain in joints diclofenac [From Arthrotec 50] Adverse Reaction (Verified 08/03/18 02:29) Upset Stomach misoprostol [From Arthrotec 50] Adverse Reaction (Verified 08/03/18 02:29) Upset Stomach Medications to take at Discharge Clopidogrel Bisulfate [Plavix] 75 mg PO DAILY 12/15/16 Levothyroxine [Synthroid] 100 mcg PO DAILY 07/08/17 Lorazepam [Ativan] 0.5 mg PO QHS PRN PRN 07/08/17 Nitroglycerin [Nitrostat] 0.4 mg SL PRN PRN 07/08/17 Cholecalciferol (VIT D3) [Vitamin D3] 2,000 unit PO DAILY 08/03/18 Acetaminophen [Tylenol] 1,000 mg PO Q6H PRN tablet 09/02/18 Carvedilol [Coreg (Beta Sonya)] 12.5 mg PO BID #60 tablet 09/02/18 Colchicine 0.6 mg PO DAILYCM #30 tablet 09/02/18 Furosemide [Lasix] 20 mg PO 1200 tablet 09/02/18 Gabapentin [Neurontin] 100 mg PO BIDCM #60 capsule 09/02/18 Guaifenesin Dm [Robitussin Dm] 10 ml PO Q6H PRN PRN udc 09/02/18 Ipratropium/Albuterol Sulfate [Duoneb] 3 ml INHALATION Q6HWA.RT #100 ampul.neb 09/02/18 Pantoprazole Sodium [Protonix] 40 mg PO BID #60 tablet 09/02/18 Sacubitril/Valsartan 49-51 mg [Entresto 49 mg-51 mg Tablet] 1 each PO BID #60 tablet 09/02/18 Senna/Docusate Sodium [Senokot-S] 1 tablet PO BID #60 tablet 09/02/18 traMADol [Ultram] 50 mg PO TID PRN PRN #30 tab 09/02/18 The following prescriptions were given: Ipratropium/Albuterol Sulfate [Duoneb] 3 ml INHALATION Q6HWA.RT #100 ampul.neb Colchicine 0.6 mg PO DAILYCM #30 tablet traMADol [Ultram] 50 mg PO TID PRN PRN #30 tab PRN Reason: Moderate Pain (4-5/10) Carvedilol [Coreg (Beta Sonya)] 12.5 mg PO BID #60 tablet Gabapentin [Neurontin] 100 mg PO BIDCM #60 capsule Pantoprazole Sodium [Protonix] 40 mg PO BID #60 tablet Sacubitril/Valsartan 49-51 mg [Entresto 49 mg-51 mg Tablet] 1 each PO BID #60 tablet Senna/Docusate Sodium [Senokot-S] 1 tablet PO BID #60 tablet Primary Care Physician: Sudhir Fuller III, MD [Primary Care Provider] - Please follow up with your Primary Care Physician in: 1 week. Test Results: Test results from this visit will be discussed in further detail at your follow- up appointment, if applicable. Please Follow Up With: Sudhir Fuller III, MD When: 1-2 weeks after discharge Please Follow Up With: Tristen Shaikh MD When: after discharge Please Follow Up With: Michelle Hull DO When: after discharge Please Follow Up With: Dr. Светлана DDS When: after discharge Proposed Discharge Date: 09/04/18
--- NOTE | 2018-09-02 14:15 | PCM.DC.SUM ---
Discharge Date and Diagnosis - Problem List Patient Problems: Active and Suspected Problems (Last Reviewed 08/03/18 @ 07:33 by Messi Hendricks MD) Gout (Acute) Acute on chronic kidney failure (Acute) Date of Admission: 08/13/18 Date of Discharge: 09/04/18 - Primary Discharge Diagnosis Active and Suspected Problems (Last Reviewed 08/03/18 @ 07:33 by Messi Hendricks MD) Gout (Acute) Acute on chronic kidney failure (Acute) - Secondary Discharge Diagnosis Chronic Problems (Last Reviewed 08/03/18 @ 07:33 by Messi Hendricks MD) Hypothyroidism (Chronic) Cardiomyopathy (Chronic) 35% Hypertension (Chronic) Parathyroid adenoma (Chronic) History of breast cancer (Chronic) History of left mastectomy (Chronic) Chronic renal failure, stage 4 (severe) (Chronic) Hyperuricemia (Chronic) Osteoporosis (Chronic) Goiter (Chronic) Hyperlipidemia (Chronic) Anxiety (Chronic) Arrhythmia (Chronic) COPD (chronic obstructive pulmonary disease) (Chronic) Coronary artery disease (Chronic) Peripheral vascular disease (Chronic) severe Hospital Course and Treatment Imaging Results: 08/17/18 14:37 Diet: Cardiac/Low Cholesterol Dietary Modifications:: Low Purine Diet Is pt able to select menu?: Yes Diet Comments: low cholesterol, low sodium Clinical Impression(s) from Imaging Studies Chest X-Ray 08/24/18 17:59 IMPRESSION: COPD and cardiomegaly without evidence of acute cardiopulmonary disease. Electronically Signed: Tonia Moya MD at 5:16 EST , Service support , Operations: None Procedures: None Summary of Care Provided: The patient is a 82 year old Female with below past medical history hospitalized for acute Upper GI bleed requiring 3 units PRBC transfusion, complicated by gout exacerbation, acute on chronic kidney failure, admitted to TCU with debility, here for rehabilitation, strengthening, prior to discharge home with spouse. On TCU, resident was started on Entresto titration for treatment of chronic systolic heart failure, consider titrating Entresto to 97/103MG BID to decrease risk of , hospitalization from heart failure. Resident also developed RSV B bronchitis, treated with antibiotics, steroids, aerosols, improved. Discharge home with spouse, and Home Health Services. Patient Problems: Active and Suspected Problems (Last Reviewed 08/03/18 @ 07:33 by Messi Hendricks MD) Gout (Acute) Acute on chronic kidney failure (Acute) - Physical Exam Vital Signs Temp Pulse Resp BP Pulse Ox 98.6 F 77 21 H 115/52 L 94 09/01/18 15:16 09/02/18 14:03 09/02/18 14:03 09/01/18 15:16 09/02/18 10:00 Oxygen Flow Rate (L/min) 1 Oxygen Delivery Method Room Air Weight: 52.673 kg Body Mass Index (BMI) 21.9 Intake and Output for Last 24 Hours 08/31/18 09/01/18 09/02/18 23:59 23:59 23:59 Intake Total 720 / 720 1180 / 1180 560 / 560 Balance 720 / 720 1180 / 1180 560 / 560 Discharge Diet: No Restrictions Discharge Activity: Return to Normal Activity, May Shower, Use Walker Weight Bearing Status: Weight bearing as tolerated Call your doctor if you observe: Fever of 101 or Higher, Inability to urinate, Inability to have a bowel movement, Shortness of breath, Chest pain, Uncontrolled pain Home Medications: Medications to take at Discharge Clopidogrel Bisulfate [Plavix] 75 mg PO DAILY 12/15/16 Levothyroxine [Synthroid] 100 mcg PO DAILY 07/08/17 Lorazepam [Ativan] 0.5 mg PO QHS PRN PRN 07/08/17 Nitroglycerin [Nitrostat] 0.4 mg SL PRN PRN 07/08/17 Cholecalciferol (VIT D3) [Vitamin D3] 2,000 unit PO DAILY 08/03/18 Acetaminophen [Tylenol] 1,000 mg PO Q6H PRN tablet 09/02/18 Carvedilol [Coreg (Beta Sonya)] 12.5 mg PO BID #60 tablet 09/02/18 Colchicine 0.6 mg PO DAILYCM #30 tablet 09/02/18 Furosemide [Lasix] 20 mg PO 1200 tablet 09/02/18 Gabapentin [Neurontin] 100 mg PO BIDCM #60 capsule 09/02/18 Guaifenesin Dm [Robitussin Dm] 10 ml PO Q6H PRN PRN udc 09/02/18 Ipratropium/Albuterol Sulfate [Duoneb] 3 ml INHALATION Q6HWA.RT #100 ampul.neb 09/02/18 Pantoprazole Sodium [Protonix] 40 mg PO BID #60 tablet 09/02/18 Sacubitril/Valsartan 49-51 mg [Entresto 49 mg-51 mg Tablet] 1 each PO BID #60 tablet 09/02/18 Senna/Docusate Sodium [Senokot-S] 1 tablet PO BID #60 tablet 09/02/18 traMADol [Ultram] 50 mg PO TID PRN PRN #30 tab 09/02/18 Following Prescrptions Were Given to Patient: Ipratropium/Albuterol Sulfate [Duoneb] 3 ml INHALATION Q6HWA.RT #100 ampul.neb Colchicine 0.6 mg PO DAILYCM #30 tablet traMADol [Ultram] 50 mg PO TID PRN PRN #30 tab PRN Reason: Moderate Pain (4-5/10) Carvedilol [Coreg (Beta Sonya)] 12.5 mg PO BID #60 tablet Gabapentin [Neurontin] 100 mg PO BIDCM #60 capsule Pantoprazole Sodium [Protonix] 40 mg PO BID #60 tablet Sacubitril/Valsartan 49-51 mg [Entresto 49 mg-51 mg Tablet] 1 each PO BID #60 tablet Senna/Docusate Sodium [Senokot-S] 1 tablet PO BID #60 tablet Primary Care Physician: Sudhir Fuller III, MD [Primary Care Provider] - Please follow up with your Primary Care Physician in: 1 week. Please Follow Up With: Sudhir Fuller III, MD When: 1-2 weeks after discharge Please Follow Up With: Tristen Shaikh MD When: after discharge Please Follow Up With: Michelle Hull DO When: after discharge Please Follow Up With: Dr. Светлана DDS When: after discharge Disposition: Home with Home Health Minutes spent on discharge:: 35 Patient Condition:: Stable Medical Necessity - Tobacco Use Smoking Status: Never smoker Tobacco Use: Non-smoker Meaningful Use Info Meaningful Use Diagnoses (Choose all that apply): None applicable
--- NOTE | 2018-09-02 14:18 | DS.PCM_ITS ---
Discharge Date and Diagnosis - Problem List Patient Problems: Active and Suspected Problems (Last Reviewed 08/03/18 @ 07:33 by Messi Hendricks MD) Gout (Acute) Acute on chronic kidney failure (Acute) Date of Admission: 08/13/18 Date of Discharge: 09/04/18 - Primary Discharge Diagnosis Active and Suspected Problems (Last Reviewed 08/03/18 @ 07:33 by Messi Hendricks MD) Gout (Acute) Acute on chronic kidney failure (Acute) - Secondary Discharge Diagnosis Chronic Problems (Last Reviewed 08/03/18 @ 07:33 by Messi Hendricks MD) Hypothyroidism (Chronic) Cardiomyopathy (Chronic) 35% Hypertension (Chronic) Parathyroid adenoma (Chronic) History of breast cancer (Chronic) History of left mastectomy (Chronic) Chronic renal failure, stage 4 (severe) (Chronic) Hyperuricemia (Chronic) Osteoporosis (Chronic) Goiter (Chronic) Hyperlipidemia (Chronic) Anxiety (Chronic) Arrhythmia (Chronic) COPD (chronic obstructive pulmonary disease) (Chronic) Coronary artery disease (Chronic) Peripheral vascular disease (Chronic) severe Hospital Course and Treatment Imaging Results: 08/17/18 14:37 Diet: Cardiac/Low Cholesterol Dietary Modifications:: Low Purine Diet Is pt able to select menu?: Yes Diet Comments: low cholesterol, low sodium Clinical Impression(s) from Imaging Studies Chest X-Ray 08/24/18 17:59 IMPRESSION: COPD and cardiomegaly without evidence of acute cardiopulmonary disease. Electronically Signed: Tonia Moya MD at 5:16 EST , Service support , Operations: None Procedures: None Summary of Care Provided: The patient is a 82 year old Female with below past medical history hospitalized for acute Upper GI bleed requiring 3 units PRBC transfusion, complicated by gout exacerbation, acute on chronic kidney failure, admitted to TCU with debility, here for rehabilitation, strengthening, prior to discharge home with spouse. On TCU, resident was started on Entresto titration for treatment of chronic sys tolic heart failure, consider titrating Entresto to 97/103MG BID to decrease risk of , hospitalization from heart failure. Resident also developed RSV B bronchitis, treated with antibiotics, steroids, aerosols, improved. Discharge home with spouse, and Home Health Services. Patient Problems: Active and Suspected Problems (Last Reviewed 08/03/18 @ 07:33 by Messi benson MD) Gout (Acute) Acute on chronic kidney failure (Acute) - Physical Exam Vital Signs Temp Pulse Resp BP Pulse Ox 98.6 F 77 21 H 115/52 L 94 09/01/18 15:16 09/02/18 14:03 09/02/18 14:03 09/01/18 15:16 09/02/18 10:00 Oxygen Flow Rate (L/min) 1 Oxygen Delivery Method Room Air Weight: 52.673 kg Body Mass Index (BMI) 21.9 Intake and Output for Last 24 Hours 08/31/18 09/01/18 09/02/18 23:59 23:59 23:59 Intake Total 720 / 720 1180 / 1180 560 / 560 Balance 720 / 720 1180 / 1180 560 / 560 Discharge Diet: No Restrictions Discharge Activity: Return to Normal Activity, May Shower, Use Walker Weight Bearing Status: Weight bearing as tolerated Call your doctor if you observe: Fever of 101 or Higher, Inability to urinate, Inability to have a bowel movement, Shortness of breath, Chest pain, Uncontroll ed pain Home Medications: Medications to take at Discharge Clopidogrel Bisulfate [Plavix] 75 mg PO DAILY 12/15/16 Levothyroxine [Synthroid] 100 mcg PO DAILY 07/08/17 Lorazepam [Ativan] 0.5 mg PO QHS PRN PRN 07/08/17 Nitroglycerin [Nitrostat] 0.4 mg SL PRN PRN 07/08/17 Cholecalciferol (VIT D3) [Vitamin D3] 2,000 unit PO DAILY 08/03/18 Acetaminophen [Tylenol] 1,000 mg PO Q6H PRN tablet 09/02/18 Carvedilol [Coreg (Beta Sonya)] 12.5 mg PO BID #60 tablet 09/02/18 Colchicine 0.6 mg PO DAILYCM #30 tablet 09/02/18 Furosemide [Lasix] 20 mg PO 1200 tablet 09/02/18 Gabapentin [Neurontin] 100 mg PO BIDCM #60 capsule 09/02/18 Guaifenesin Dm [Robitussin Dm] 10 ml PO Q6H PRN PRN udc 09/02/18 Ipratropium/Albuterol Sulfate [Duoneb] 3 ml INHALATION Q6HWA.RT #100 ampul.neb 09/02/18 Pantoprazole Sodium [Protonix] 40 mg PO BID #60 tablet 09/02/18 Sacubitril/Valsartan 49-51 mg [Entresto 49 mg-51 mg Tablet] 1 each PO BID #60 tablet 09/02/18 Senna/Docusate Sodium [Senokot-S] 1 tablet PO BID #60 tablet 09/02/18 traMADol [Ultram] 50 mg PO TID PRN PRN #30 tab 09/02/18 Following Prescrptions Were Given to Patient: Ipratropium/Albuterol Sulfate [Duoneb] 3 ml INHALATION Q6HWA.RT #100 ampul.neb Colchicine 0.6 mg PO DAILYCM #30 tablet traMADol [Ultram] 50 mg PO TID PRN PRN #30 tab PRN Reason: Moderate Pain (4-5/10) Carvedilol [Coreg (Beta Sonya)] 12.5 mg PO BID #60 tablet Gabapentin [Neurontin] 100 mg PO BIDCM #60 capsule Pantoprazole Sodium [Protonix] 40 mg PO BID #60 tablet Sacubitril/Valsartan 49-51 mg [Entresto 49 mg-51 mg Tablet] 1 each PO BID #60 tablet Senna/Docusate Sodium [Senokot-S] 1 tablet PO BID #60 tablet Primary Care Physician: Sudhir Fuller III, MD [Primary Care Provider] - Please follow up with your Primary Care Physician in: 1 week. Please Follow Up With: Sudhir Fuller III, MD When: 1-2 weeks after discharge Please Follow Up With: Tristen Shaikh MD When: after discharge Please Follow Up With: Michelle Hull DO When: after discharge Please Follow Up With: Dr. Светлана DDS When: after discharge Disposition: Home with Home Health Minutes spent on discharge:: 35 Patient Condition:: Stable Medical Necessity - Tobacco Use Smoking Status: Never smoker Tobacco Use: Non-smoker Meaningful Use Info Meaningful Use Diagnoses (Choose all that apply): None applicable
--- NOTE | 2018-09-02 14:18 | PCM.PN.HH ---
Home Health Note - Plan Overview of reason of hospitalization: The patient is a 82 year old Female with below past medical history hospitalized for acute Upper GI bleed requiring 3 units PRBC transfusion, complicated by gout exacerbation, acute on chronic kidney failure, admitted to TCU with debility, here for rehabilitation, strengthening, prior to discharge home with spouse. On TCU, resident was started on Entresto titration for treatment of chronic systolic heart failure, consider titrating Entresto to 97/103MG BID to decrease risk of , hospitalization from heart failure. Resident also developed RSV B bronchitis, treated with antibiotics, steroids, aerosols, improved. Discharge home with spouse, and Home Health Services. Problems: Patient was seen for (Last Reviewed 08/03/18 @ 07:33 by Messi Hendricks MD) Gout (Acute) Acute on chronic kidney failure (Acute) Goiter (Chronic) Hyperlipidemia (Chronic) Anxiety (Chronic) Complete List of Medical Problems (Last Reviewed 08/03/18 @ 07:33 by Messi Hendricks MD) Hypothyroidism (Chronic) Cardiomyopathy (Chronic) Acute upper GI bleed (Acute) Hypertension (Chronic) Parathyroid adenoma (Chronic) History of breast cancer (Chronic) History of left mastectomy (Chronic) Chronic renal failure, stage 4 (severe) (Chronic) Acute gouty arthritis (Acute) Hyperuricemia (Chronic) Acute systolic (congestive) heart failure (Acute) Osteoporosis (Chronic) Gout (Acute) Acute on chronic kidney failure (Acute) Goiter (Chronic) Hyperlipidemia (Chronic) Anxiety (Chronic) Hyperparathyroidism (Acute) Acute blood loss anemia (Acute) Arrhythmia (Chronic) COPD (chronic obstructive pulmonary disease) (Chronic) Coronary artery disease (Chronic) Peripheral vascular disease (Chronic) - Requirements and Reasons Disciplines Needed/Ordered: Physical Therapy Reason for Disciplines: Gait Training, Stair Training, Fall Prevention, Home Safety/Equipment Instruction, Balance and/or Posture Training, Transfer Training Related To: Limited/Poor Endurance, Shortness of Breath with Activity, Physical Impairments, Unsteady Gait/Balance, Fall Risk Patient is unable to leave the home: Without Aid of Supportive Devices (crutches, cane, wheelchair, walker), Without the assistance of another person - Additional Disciplines Additional Disciplines Needed/Ordered: Occupational Therapy
[2018-09-02 16:00] VITALS: BP 105/58; PULSE 68; RESP 14; TEMP 37.1; O2SAT 95
[2018-09-02] MEDS: LORazepam 1 MG Tablet 0.5 MG PO (23:41)
[2018-09-02] MEDS: guaiFENesin Dm 10 ML UDC PO (23:41)
[2018-09-02] MEDS: traMADol 50 MG Tablet PO (23:42)
[2018-09-03] MEDS: SACUBITRIL/VALSARTAN 49-51 MG TABLET 1 EACH PO ×2 (05:57→17:32)
[2018-09-03] MEDS: Pantoprazole Sodium 40 MG Tablet PO ×2 (05:57→17:31)
[2018-09-03] MEDS: Levothyroxine 100 MCG Tablet PO (05:57)
[2018-09-03] MEDS: Carvedilol 12.5 MG Tablet PO ×2 (05:57→17:31)
[2018-09-03] MEDS: Clopidogrel Bisulfate 75 MG Tablet PO (05:57)
[2018-09-03] MEDS: Ipratropium/Albuterol Sulfate 3 ML AMPUL.NEB INHALATION ×2 (07:03→13:11)
[2018-09-03 07:04] VITALS: PULSE 98; RESP 16; O2SAT 95
[2018-09-03] MEDS: Gabapentin 100 MG Capsule PO ×2 (08:02→17:32)
[2018-09-03 13:12] VITALS: PULSE 68; RESP 16; O2SAT 95
[2018-09-03] MEDS: Furosemide 20 MG Tablet PO (13:13)
[2018-09-03 15:29] VITALS: BP 99/59; PULSE 71; RESP 15; TEMP 36.9; O2SAT 96
[2018-09-03 21:09] VITALS: PULSE 74; RESP 18; O2SAT 94
[2018-09-03] MEDS: traMADol 50 MG Tablet PO (22:07)
[2018-09-03] MEDS: LORazepam 1 MG Tablet 0.5 MG PO (22:08)
[2018-09-03] MEDS: guaiFENesin Dm 10 ML UDC PO (22:11)
[2018-09-04] MEDS: Levothyroxine 100 MCG Tablet PO (06:08)
[2018-09-04] MEDS: SACUBITRIL/VALSARTAN 49-51 MG TABLET 1 EACH PO (06:08)
[2018-09-04] MEDS: Carvedilol 12.5 MG Tablet PO (06:09)
[2018-09-04] MEDS: Clopidogrel Bisulfate 75 MG Tablet PO (06:09)
[2018-09-04] MEDS: Pantoprazole Sodium 40 MG Tablet PO (06:09)
[2018-09-04 06:51] VITALS: PULSE 67; RESP 16
[2018-09-04] MEDS: Ipratropium/Albuterol Sulfate 3 ML AMPUL.NEB INHALATION (06:51)
[2018-09-04 07:07] LABS: Absolute Lymphocyte Count 1.84 X10^3/ul (0.83-4.51); Absolute Neutrophil Count 3.6 X10^3/uL (2.0-7.7); Basophil# 0.03 X10^3/uL; Basophil% 0.5 % (0-1); Eosinophil# 0.29 X10^3/uL; Eosinophils% 4.6 % (0-5); Hematocrit 37.2 % (37-47); Hemoglobin 11.5 g/dl (12.0-15.0); Lymphocyte # 1.84 X10^3/ul (4.0); Lymphocyte % 29.2 % (19-41); Mean Corp Hgb Conc 30.9 g/gl (32-36); Mean Corpuscular Hgb 30.5 pg (27.0-32.0); Mean Corpuscular Volume 98.7 fL (81-99); Mean Platelet Vol. 10.5 fl (6.2-12.0); Monocyte# 0.49 X10^3/uL; Monocyte% 7.8 % (0-10); Neutrophil # 3.59 X10^3/uL (2.7-7.7); Neutrophil % 56.9 % (47-70); Platelet Count 211 K/mm3 (150-450); RBC Distribution Width CV 16.4 % (11.6-14.6); RBC Distribution Width SD 57.6 fl (35.1-43.9); Red Blood Count 3.77 M/mm3 (4.2-5.4); White Blood Count 6.3 K/mm3 (4.4-11.0)
[2018-09-04 07:17] LABS: POSITIVE COUNT NO; POSITIVE DIFFERENTIAL NO; POSITIVE MORPHOLOGY NO
[2018-09-04 07:29] LABS: Anion Gap 9 (5-15); BUN 35 mg/dL (7-18); Calcium,Total 9.9 mg/dL (8.5-10.1); Chloride 106 mmol/L (98-107); Creatinine, Serum 1.13 mg/dL (0.55-1.02); EST Glomerular Filtration Rate 49 mL/min (>60); Est Glom Filt Rate - Afr Amer 59 mL/min (>60); Estimated Creatinine Clearance 30.88 ml/min; Glucose 100 mg/dL (74-106); Potassium 3.8 mmol/L (3.5-5.1); Sodium Level 143 mmol/L (136-145)
[2018-09-04] MEDS: Gabapentin 100 MG Capsule PO (08:53)
[2018-09-04 09:01] VITALS: PULSE 68; O2SAT 97
[2018-09-04 12:41] VITALS: BP 124/68; PULSE 82; RESP 16; TEMP 36.8; O2SAT 96
== END 2018-09-04 12:00 | disposition home health service (06) | DRG 948 ==
PROVIDERS: Admitting Provider Family Medicine Geriatric Medicine; Family Provider Family Medicine; PCP Family Medicine; Visit Provider Family Medicine Geriatric Medicine
DX: R53.81 Other malaise (principal); I13.0 Hypertensive heart and chronic kidney disease with heart failure and stage 1 through stage 4 chronic kidney disease, or unspecified chronic kidney disease; N18.4 Chronic kidney disease, stage 4 (severe); I50.22 Chronic systolic (congestive) heart failure; I25.10 Atherosclerotic heart disease of native coronary artery without angina pectoris; E55.9 Vitamin D deficiency, unspecified; E03.9 Hypothyroidism, unspecified; G47.00 Insomnia, unspecified; M10.9 Gout, unspecified; M81.0 Age-related osteoporosis without current pathological fracture; J44.9 Chronic obstructive pulmonary disease, unspecified; D35.1 Benign neoplasm of parathyroid gland; I73.9 Peripheral vascular disease, unspecified; E78.5 Hyperlipidemia, unspecified; E04.9 Nontoxic goiter, unspecified; Z79.02 Long term (current) use of antithrombotics/antiplatelets; Z85.3 Personal history of malignant neoplasm of breast; Z95.1 Presence of aortocoronary bypass graft; K26.7 Chronic duodenal ulcer without hemorrhage or perforation; J20.5 Acute bronchitis due to respiratory syncytial virus
CPT/HCPCS: 36415; 71045; 80048; 85025; 86480; 87070; 87205; 87633; 93005; 94640; 97110; 97116; 97162; 97166; 97530; 97535; 97802

== ENCOUNTER → 2018-10-19 11:16 | Outpatient (CLI) | payer MEDICARE, OTHER, SELFPAY ==
[2018-10-19 13:16] LABS: Albumin, Serum 3.4 g/dL (3.2-5.0); BUN 25 mg/dL (7-18); BUN/Creat Ratio 21.4 RATIO (10-20); Chloride 103 mmol/L (98-107); Creatinine, Serum 1.17 mg/dL (0.55-1.02); EST Glomerular Filtration Rate 47 mL/min (>60); Est Glom Filt Rate - Afr Amer 57 mL/min (>60); Glucose 129 mg/dL (74-106); Phosphorus 2.8 mg/dL (2.5-4.9); Potassium 3.6 mmol/L (3.5-5.1); Sodium Level 137 mmol/L (136-145); Uric Acid 8.5 mg/dL (2.6-6.0)
[2018-10-19 13:19] LABS: PTHIN 101.2 pg/mL (18.4-80.1)
== END ==
PROVIDERS: Family Provider Family Medicine; PCP Family Medicine; Visit Provider Internal Medicine Nephrology
DX: N18.3 Chronic kidney disease, stage 3 (moderate) (principal); E21.3 Hyperparathyroidism, unspecified
CPT/HCPCS: 36415; 80069; 83970; 84550

== ENCOUNTER → 2019-01-26 | Outpatient (CLI) | payer MEDICARE, OTHER, SELFPAY ==
[2019-01-26 15:41] LABS: Albumin, Serum 3.4 g/dL (3.2-5.0); BUN 43 mg/dL (7-18); BUN/Creat Ratio 30.1 RATIO (10-20); Calcium,Total 10.2 mg/dL (8.5-10.1); Chloride 104 mmol/L (98-107); Creatinine, Serum 1.43 mg/dL (0.55-1.02); EST Glomerular Filtration Rate 37 mL/min (>60); Est Glom Filt Rate - Afr Amer 45 mL/min (>60); Glucose 102 mg/dL (74-106); Phosphorus 3.6 mg/dL (2.5-4.9); Potassium 4.5 mmol/L (3.5-5.1); Sodium Level 142 mmol/L (136-145); Uric Acid 7.2 mg/dL (2.6-6.0)
[2019-01-26 16:13] LABS: PTHIN 83.7 pg/mL (18.4-80.1)
== END | disposition home or self-care (01) ==
LOC: POLAB3 13:36
PROVIDERS: Family Provider Family Medicine; PCP Family Medicine; Visit Provider Internal Medicine Nephrology
DX: N18.3 Chronic kidney disease, stage 3 (moderate) (principal); E21.3 Hyperparathyroidism, unspecified; M10.9 Gout, unspecified
CPT/HCPCS: 36415; 80069; 82306; 83970; 84550

== ENCOUNTER → 2019-06-14 13:44 | Outpatient (CLI) | payer MEDICARE, OTHER, SELFPAY ==
[2019-06-14 18:07] LABS: Albumin, Serum 3.3 g/dL (3.2-5.0); BUN 24 mg/dL (7-18); Calcium,Total 9.7 mg/dL (8.5-10.1); Chloride 106 mmol/L (98-107); EST Glomerular Filtration Rate 46 mL/min (>60); Est Glom Filt Rate - Afr Amer 55 mL/min (>60); Glucose 100 mg/dL (74-106); Phosphorus 2.4 mg/dL (2.5-4.9); Potassium 3.8 mmol/L (3.5-5.1); Sodium Level 142 mmol/L (136-145)
== END ==
PROVIDERS: Family Provider Family Medicine; PCP Family Medicine; Visit Provider Internal Medicine Nephrology
DX: N18.3 Chronic kidney disease, stage 3 (moderate) (principal); E21.3 Hyperparathyroidism, unspecified
CPT/HCPCS: 36415; 80069

== ENCOUNTER → 2019-08-01 15:29 | Outpatient (CLI) | payer MEDICARE, OTHER, SELFPAY ==
[2019-06-22 15:29] VITALS: BMI 21.9
[2019-08-01 16:51] LABS: Albumin, Serum 3.4 g/dL (3.2-5.0); BUN 23 mg/dL (7-18); BUN/Creat Ratio 19.2 RATIO (10-20); Chloride 107 mmol/L (98-107); EST Glomerular Filtration Rate 46 mL/min (>60); Est Glom Filt Rate - Afr Amer 55 mL/min (>60); Glucose 103 mg/dL (74-106); Potassium 4.2 mmol/L (3.5-5.1); Sodium Level 143 mmol/L (136-145)
[2019-08-01 17:02] LABS: Vitamin D,25 Hydroxy 39.9 ng/mL (29.95-100.01)
[2019-08-02 09:08] LABS: PTHIN 111.5 pg/mL (18.4-80.1)
[2019-08-04 16:58] LABS: Vitamin D 1,25-Dihydroxy 29.9 pg/mL (19.9-79.3)
== END ==
PROVIDERS: Internal Medicine Endocrinology, Diabetes & Metabolism; Family Provider Family Medicine; PCP Family Medicine; Referring Provider Internal Medicine Nephrology; Visit Provider Internal Medicine Nephrology
DX: E83.52 Hypercalcemia (principal); N18.3 Chronic kidney disease, stage 3 (moderate); E21.3 Hyperparathyroidism, unspecified; E55.9 Vitamin D deficiency, unspecified
CPT/HCPCS: 36415; 80069; 82306; 82652; 83970

== ENCOUNTER → 2019-09-06 13:11 | Outpatient (CLI) | payer MEDICARE, OTHER, SELFPAY ==
[2019-08-18 13:33] VITALS: BMI 22.6
--- NOTE | 2019-09-06 13:12 | ECHOD_ITS ---
Reason For Study: AFIB Procedure This was a 2D Doppler, Color Flow transthoracic echocardiogram. Myocardial strain analysis was performed in this exam to aid in the assessment of cardiac function. Exam performed in department. Left Ventricle Normal LV size. D shaped septum in diastole. Post operative septal motion. The estimated ejection fraction is 37 %. Infero-Basal: Akinetic. Mid-Inferior: Severely Hypokinetic. The rest of the wall segments are hypokinetic. Right Ventricle Normal RV size. ICD or pacer leads identified within the right ventricle. Normal systolic function. Atria The left atrium is mildly enlarged. Normal right atrium. Mitral Valve Bileaflet diffuse mitral valve thickening. 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 Mild-Moderate (1-2+) eccentric mitral valve insufficiency. Tricuspid Valve Normal tricuspid valve. Moderate (2+) tricuspid valve insufficiency. Pulmonary artery systolic pressure is 54 mmHg. Moderate pulmonary hypertension. Aortic Valve Trisinus/trileaflet aortic valve. Mild diffuse aortic valve thickening. Mild (1+) aortic valve insufficiency. Pulmonic Valve Normal pulmonic valve. Great Vessels Normal aortic root. The pulmonary artery is normal size. The inferior vena cava is dilated. Pericardium/Pleural No pericardial effusion. MMode/2D Measurements & Calculations LVIDd: 5.4 cm IVSd: 1.1 cm Ao root diam: 3.7 cm LVIDs: 4.7 cm LVPWd: 1.2 cm RVDd: 4.5 cm FS: 13.0 % LAV(MOD-bp): 65.1 ml LA A4 area: 20.7 cm2 LA dimension(2D): 4.7 cm LAV(MOD-bp) Indexed: 42.5 ml/m2 LAV(MOD-sp2): 67.7 ml LAV(MOD-sp4): 62.0 ml RA A4 area: 16.1 cm2 Time Measurements MV dec time: 0.46 sec Doppler Measurements & Calculations MV E max nancy: 61.0 cm/sec Ao V2 max: 181.7 cm/sec AI max nancy: 355.1 cm/sec MV A max nancy: 28.5 cm/sec Ao max P.2 mmHg AI max P.5 mmHg MV E/A: 2.1 Ao V2 mean: 117.0 cm/sec AI dec slope: 228.7 cm/sec2 Ao mean P.3 mmHg AI P1/2t: 454.8 msec Ao V2 VTI: 34.1 cm LV V1 max: 108.6 cm/sec PA V2 max: 110.6 cm/sec TR max nancy: 348.0 cm/sec LV V1 max P.7 mmHg TR max P.5 mmHg LV V1 mean P.0 mmHg LV V1 mean: 63.8 cm/sec LV V1 VTI: 18.7 cm Interpretation Summary Normal LV size. D shaped septum in diastole. The estimated ejection fraction is 37 %. The left atrium is mildly enlarged. 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 Mild-Moderate (1-2+) eccentric mitral valve insufficiency. Moderate pulmonary hypertension. Moderate (2+) tricuspid valve insufficiency. Compared to the previous the pulmonary pressures are higher Ordering Physician: Simónril^^^ Referring Physician: MARIAA MG Performed By: Renate Duarte, SVETLANA, RVT
== END ==
LOC: CVS 13:12
PROVIDERS: Family Provider Family Medicine; PCP Family Medicine; Referring Provider Internal Medicine Cardiovascular Disease; Visit Provider Internal Medicine Cardiovascular Disease
DX: I48.0 Paroxysmal atrial fibrillation (principal)
CPT/HCPCS: 93306

== ENCOUNTER 2019-09-08 07:14 | Inpatient (IN) | payer MEDICARE, OTHER, SELFPAY ==
[2019-08-18 13:33] VITALS: BMI 22.6
[2019-09-08] VITALS (11 sets, daily range): BP systolic 129–177; BP diastolic 55–86; PULSE 60–66; RESP 16–23; TEMP 36.1–37.1; O2SAT 94–97; BMI 23.1
--- NOTE | 2019-09-08 07:37 | RAD_ITS ---
STUDY: X-RAY CHEST REASON FOR EXAM: Female, 83 years old. ABDOMINAL PAIN X 3 DAYS, SHORTNESS OF BREATH TECHNIQUE: AP and lateral views of the chest. COMPARISON: Comparison is made with prior study dated August 24, 2018. FINDINGS: EKG electrodes are seen. Surgical clips are seen in both axillary regions. Small left pleural effusion with underlying left basilar atelectasis. Sternal cerclage wires and vascular clips are present from a prior sternotomy and coronary artery bypass graft procedure (CABG). A left-sided dual-chamber pacemaker is seen. Normal mediastinum and davi. Normal visualized pulmonary arteries. There is atherosclerotic calcification of the aortic arch with tortuosity. There is demineralization of the osseous structures. Dextroscoliosis. Metallic clips are seen in the region of the right humeral head suggestive of rotator cuff surgery. There is no demonstrated abnormality of the visualized soft tissue structures of the upper abdomen. RAD/Chest PA and Lateral IMPRESSION: Small left pleural effusion with left basilar atelectasis. Electronically Signed: Jerel Churchill, at 8:39 EST , Service support ,
--- NOTE | 2019-09-08 07:37 | EKG12_ITS ---
Test Reason : CP Blood Pressure : / mmHG Vent. Rate : 060 BPM Atrial Rate : 072 BPM P-R Int : 000 ms QRS Dur : 148 ms QT Int : 460 ms P-R-T Axes : 000 -80 109 degrees QTc Int : 460 ms Ventricular-paced rhythm Biventricular pacemaker detected Abnormal ECG Confirmed by LASHONDA YOU, DYLAN ([id number]), publishing editor TERI WANG ([id number]) on 09/12/2019 8:59:45 AM Referred By: PAIGE Confirmed By:DYLAN GALLEGO MD
--- NOTE | 2019-09-08 07:40 | ED.VISSUMM ---
- ER Visit Summary Date of Service: 09/08/19 Chief Complaint: Shortness of breath and abdominal pain History of Present Illness: The patient is a 83 F who presents with shortness of breath that has been getting worse over the past 3 days. Patient states her breathing is worse when she lays flat. Patient states her primary care physician told her to increase her Lasix yesterday. Patient states her breathing is also worse with any exertion. Patient admits to a cough but denies any sputum production. Patient also admits to a sore throat and bilateral ear pain. Patient also admits to some pain in her chest which feels like a heaviness. Patient denies any radiation of the pain. Patient states her abdominal pain is diffuse. Patient admits to some nausea and vomiting. Patient denies any diarrhea, melena, or hematochezia. Patient does admit to some mild dysuria. Patient denies any hematuria. Physical Examination: Vital signs are stable. Patient is afebrile. Patient is in no acute distress. Oral mucosa is pink and moist. Neck is supple. Trachea is midline. There is no JVD. Heart was regular rate and rhythm. There is a grade 2/6 systolic murmur at the lower left sternal border. Lungs show bibasilar rales. There is good respiratory effort noted. Abdomen is soft. Bowel sounds are normal. There is diffuse tenderness. There is no rebound or guarding noted. Extremities are intact. There is 2+ edema of the lower extremities bilaterally. There is no calf tenderness. Cranial nerves II through XII are intact. There are no focal motor or sensory deficits noted. Test Results: EKG shows a paced rhythm with a rate of 60. There is a left bundle branch block pattern. This was unchanged compared to previous EKG dated 08/23/2018. CBC shows a mild thrombocytopenia of 142. Comprehensive metabolic profile showed a BUN of 20 and a creatinine of 1.27 which are consistent with prior results. Total bilirubin was 1.8. Alk phos was slightly elevated at 128. Urinalysis does not show any evidence of urinary tract infection. BNP was elevated at 2142. There are no prior results. PA and lateral chest x-ray was obtained. There is a left pleural effusion with atelectasis in the left base. This was interpreted by the radiologist. When compared to previous x-ray 1 year ago it may be some mild increase in cephalization on my interpretation. Emergency Department Course and Treatment: Patient was given a dose of Lasix here in the emergency department. Patient was also given a dose of morphine. Patient states she is still having persistent abdominal pain. CT scan of the abdomen pelvis was obtained and is pending. Case was discussed with the hospitalist. He will admit the patient to his service. Patient and family understood and were agreeable with the plan. All questions were answered. Disposition: Admit to hospital Impression: 1. CHF exacerbation 2. Abdominal pain This note was generated with [employer] dictation software. It may contain incorrect words, spelling, and punctuation that were not noted in review of the chart prior to signing ED Disposition - Plan for ED Patient: Disposition: Acute Care Hospital [facility] Diagnosis: CHF exacerbation Referrals: Sudhir Fuller III, MD [Primary Care Provider] -
[2019-09-08 08:10] LABS: Absolute Lymphocyte Count 0.94 X10^3/uL (0.83-4.51); Absolute Neutrophil Count 9.1 X10^3/uL (2.0-7.7); Basophil# 0.03 X10^3/uL; Basophil% 0.3 % (0-1); Eosinophil# 0.09 X10^3/uL; Eosinophils% 0.8 % (0-5); Hematocrit 44.3 % (37-47); Hemoglobin 13.8 g/dL (12.0-15.0); Lymphocyte # 0.94 X10^3/ul (4.0); Lymphocyte % 8.7 % (19-41); Mean Corp Hgb Conc 31.2 g/dL (32-36); Mean Corpuscular Hgb 31.9 pg (27.0-32.0); Mean Corpuscular Volume 102.3 fL (81-99); Mean Platelet Vol. 11.6 fl (6.2-12.0); Monocyte# 0.66 X10^3/uL; Monocyte% 6.1 % (0-10); NRBC Flagged by Analyzer 0 % (0-5); Neutrophil # 9.11 X10^3/uL (2.7-7.7); Neutrophil % 83.8 % (47-70); Platelet Count 142 K/mm3 (150-450); RBC Distribution Width CV 14.2 % (11.6-14.6); RBC Distribution Width SD 53.9 fl (35.1-43.9); Red Blood Count 4.33 M/mm3 (4.2-5.4); White Blood Count 10.9 K/mm3 (4.4-11.0)
[2019-09-08 08:39] LABS: AST(SGOT) 30 U/L (15-37); Alanine Aminotransfer ALT/SGPT 30 U/L (13-56); Albumin, Serum 3.4 g/dL (3.2-5.0); Alkaline Phosphatase 128 U/L (45-117); Anion Gap 5 (5-15); BUN 20 mg/dL (7-18); BUN/Creat Ratio 15.7 RATIO (10-20); Calcium,Total 10.4 mg/dL (8.5-10.1); Chloride 111 mmol/L (98-107); Creatinine, Serum 1.27 mg/dL (0.55-1.02); EST Glomerular Filtration Rate 43 mL/min (>60); Est Glom Filt Rate - Afr Amer 52 mL/min (>60); Estimated Creatinine Clearance 27.01 ml/min; Globulin 3.4 g/dL (2.2-4.2); Glucose 127 mg/dL (74-106); Lipase 63 U/L (73-393); Potassium 4.9 mmol/L (3.5-5.1); Protein, Total 6.8 g/dL (6.4-8.2); Sodium Level 143 mmol/L (136-145)
[2019-09-08 08:47] LABS: BNP,B-Type NATRIURETIC PEPTIDE 2142.1 pg/mL (0-100)
[2019-09-08 08:53] LABS: Bacteria 0 SEEN /hpf (None Seen); Mucous, Urine 0 SEEN /hpf (<or=2+)
[2019-09-08 09:05] LABS: Glucose, Dipstick Normal (Normal); Ketone-Dipstick Negative (Negative); Leukocyte Esterase-Dipstick 100 /ul (Negative); Nitrite-Dipstick Negative (Negative); Occult Blood-Urine 25 /ul (Negative); Protein-Dipstick 100 mg/dl (Negative); Urine Bilirubin Dipstick Negative (Negative); Urine Urobilinogen Normal (Normal)
[2019-09-08 09:18] LABS: Color, Urine Yellow (Yellow); Urine Clarity Clear (Clear)
[2019-09-08 09:23] LABS: Red Blood Cells-Urine 0-5 SEEN /hpf (0-5); Squamous Epithelial Cells - UA 0-5 SEEN /hpf (5-10); White Blood Cells 0-5 SEEN /hpf (0-5)
[2019-09-08] MEDS: Furosemide 20 MG/2 ML VIAL IV (09:26)
--- NOTE | 2019-09-08 09:48 | CT_ITS ---
STUDY: CT ABDOMEN AND PELVIS WITHOUT CONTRAST REASON FOR EXAM: Female, 83 years old. General abdominal pain x weeks. Prior hysterectomy, appendectomy, breast cancer. Hx hypertension, CHF. RADIATION DOSAGE (If Supplied By Facility): CTDIvol = ( 6.55 ) mGy, DLP = ( 289.71 ) mGycm TECHNIQUE: Transaxial images were obtained from the dome of the diaphragm to the symphysis pubis without oral contrast, and without intravenous contrast. Sagittal and coronal images were reconstructed. Individualized dose optimization techniques were used for this CT. COMPARISON: Comparison is made with prior study dated August 03, 2018. FINDINGS: Small bilateral pleural effusions worse on the left side with bibasilar infiltration and/or atelectasis is worse on the left side. Cardiomegaly. Dual-chamber pacemaker is seen. Normal liver. Minimal amount of fluid is seen in the anterior aspect of the liver. Sludge or small gallstones seen in the gallbladder lumen. Normal spleen. Normal pancreas. Normal bilateral adrenal glands. There is severe cortical atrophy of the right kidney, consistent with chronic medical renal disease. 5.7 mm echogenic nodule along the inferior medial aspect of the left kidney. This may represent a hyperdense cyst. A similar-appearing nodule measuring 9.4 mm is seen in the mid lateral portion of the left kidney. Normal visualized stomach. Normal small intestine. There are multiple colonic diverticula consistent with diverticulosis. There is non-visualization of the appendix. There is diffuse atherosclerotic calcification of the abdominal aorta and the major visceral branches, without a demonstrated aneurysm. Normal inferior vena cava. Normal retroperitoneum. Normal urinary bladder. There is absence of the uterus consistent with a prior hysterectomy. Small amount of free fluid in the pelvis. Normal abdominal wall. There are diffuse degenerative changes of the visualized lumbar spine. CT/Abdomen/Pelvis without Cont IMPRESSION: Small amount of sludge or gallstones seen within the gallbladder lumen. Marked atrophy of the right kidney. Electronically Signed: Jerel Churchill, at 11:31 EST , Service support ,
[2019-09-08] MEDS: Morphine 4 MG/ML Syringe IV (09:55)
[2019-09-08] MEDS: Ondansetron 4 MG/2 ML Vial IV (10:08)
--- NOTE | 2019-09-08 10:47 | HP.PCM_ITS ---
Problem List (1) CHF exacerbation Status: Acute Qualifiers: Heart failure type: systolic Qualified Code(s): I50.23 - Acute on chronic systolic (congestive) heart failure (2) Vision changes Status: Chronic (3) Paroxysmal atrial fibrillation Status: Chronic (4) Sick sinus syndrome Status: Chronic (5) Left bundle branch block (LBBB) Status: Chronic (6) Biventricular cardiac pacemaker in situ Status: Chronic Comment: Initial implant 06/27/2009 then upgrade to Bi-V 2015 (7) Atherosclerosis of coronary artery of [place] heart without angina pectoris Status: Chronic (8) History of coronary artery stent placement Status: Resolved Comment: PCI-BMS-Mid LAD w/ 2.75 x 12 mm Liberte Stent 03/18/2007 (9) H/O coronary artery bypass surgery Status: Resolved Comment: CABG x 3 COX-LAD, SVG-OM1, SVG-Distal RCA at its bifurcation 07/29/2009 (10) Ischemic cardiomyopathy Status: Chronic (11) Chronic systolic (congestive) heart failure Status: Chronic (12) Essential (primary) hypertension Status: Chronic (13) Hyperlipidemia Status: Chronic (14) Chronic renal failure, stage 4 (severe) Status: Chronic (15) History of breast cancer Status: Chronic History of Present Illness Date of Admission: 09/08/19 Chief Complaint: Shortness of breath The patient is a 83 year old F with multiple comorbidities including coronary artery disease with previous CABG and subsequent stent placement, ischemic cardiomyopathy with an ejection fraction of 35% who presented with shortness of breath. Per patient has shortness of breath have been ongoing for the past couple of weeks. Has shortness of breath is brought on with minimal activity. She also did notice increasing swelling involving both lower extremities. Patient apparently had her Lasix recently adjusted by her primary care physician due to concerns for her worsening kidney function. She also did experience intermittent chest discomfort. In view of worsening symptoms he presented to the emergency department where her assessment was consistent with acute congestive heart failure admitted to monitored bed for further inpatient management Past Medical History Past Medical History (Chronic Problems): Chronic Problems (Last Reviewed 08/18/19 @ 14:05 by Mark Hernandez MD) Vision changes (Chronic) Paroxysmal atrial fibrillation (Chronic) Sick sinus syndrome (Chronic) Left bundle branch block (LBBB) (Chronic) Biventricular cardiac pacemaker in situ (Chronic 04/19/16) Initial implant 06/27/2009 then upgrade to Bi-V 2015 Atherosclerosis of coronary artery of [place] heart without angina pectoris (Chronic) Ischemic cardiomyopathy (Chronic) Chronic systolic (congestive) heart failure (Chronic) Essential (primary) hypertension (Chronic) Hyperlipidemia (Chronic) Chronic renal failure, stage 4 (severe) (Chronic) History of breast cancer (Chronic) Medical History: Medical History (Last Reviewed 09/08/19 @ 12:27 by Eben Mccracken MD) Paroxysmal atrial fibrillation (Chronic) I48.0 Sick sinus syndrome (Chronic) I49.5 Left bundle branch block (LBBB) (Chronic) I44.7 Biventricular cardiac pacemaker in situ (Chronic) Onset Date: 12/10/15 Z95.0 Initial implant 06/27/2009 then upgrade to Bi-V 2015 Atherosclerosis of coronary artery of [place] heart without angina pectoris (Chronic) I25.10 Ischemic cardiomyopathy (Chronic) I25.5 Chronic systolic (congestive) heart failure (Chronic) I50.22 Essential (primary) hypertension (Chronic) I10 Hyperlipidemia (Chronic) E78.5 Chronic renal failure, stage 4 (severe) (Chronic) N18.4 History of breast cancer (Chronic) Z85.3 Anxiety F41.9 COPD (chronic obstructive pulmonary disease) J44.9 COPD (chronic obstructive pulmonary disease) J44.9 Goiter E04.9 Gout M10.9 Hyperparathyroidism E21.3 she has a parathyroid mass and she also has CRF stage 4 Hyperparathyroidism E21.3 Hyperuricemia E79.0 Hypothyroidism E03.9 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 Osteoporosis M81.0 Parathyroid adenoma D35.1 Peptic ulcer disease K27.9 Peripheral vascular disease I73.9 Acute upper GI bleed K92.2 PUD with duodenal ulcer Allergies alendronate sodium [From Fosamax] Allergy (Verified 09/08/19 07:15) Other nitrofurantoin [From Macrodantin] Allergy (Verified 09/08/19 07:15) Rash oxycodone [From Percocet] Allergy (Verified 09/08/19 07:15) Other quinapril [From Accupril] Allergy (Verified 09/08/19 07:15) Rash atorvastatin [From Lipitor] Adverse Reaction (Verified 09/08/19 07:15) Pain in joints diclofenac [From Arthrotec 50] Adverse Reaction (Verified 09/08/19 07:15) Upset Stomach misoprostol [From Arthrotec 50] Adverse Reaction (Verified 09/08/19 07:15) Upset Stomach Home Medications: Ambulatory Orders Medication Instructions Recorded Colchicine 0.6 mg PO DAILYCM #30 tab 09/02/18 Gabapentin [Neurontin] 100 mg PO BIDCM #60 cap 09/02/18 traMADol [Ultram] 50 mg PO TID PRN PRN #30 tab 09/02/18 allopurinol 100 mg tablet 100 mg PO DAILY 06/15/19 cholecalciferol (vitamin D3) 50 2,000 unit PO DAILY 06/15/19 mcg (2,000 unit) capsule levothyroxine 100 mcg tablet 100 mcg PO DAILY 06/15/19 apixaban 2.5 mg tablet 2.5 mg PO BID #60 tab 08/18/19 carvedilol 25 mg tablet 25 mg PO BID tab 08/18/19 fluticasone propionate 50 INTRANASAL 08/18/19 mcg/actuation nasal spray,suspension meclizine 12.5 mg tablet mg PO 08/18/19 meloxicam 15 mg tablet 15 mg PO DAILY tab 08/18/19 nizatidine 150 mg capsule 150 mg PO BID cap 08/18/19 trazodone 50 mg tablet 50 mg PO DAILY tab 08/18/19 amlodipine 10 mg tablet 5 mg PO DAILY #90 tab 09/01/19 furosemide 40 mg tablet 40 mg PO DAILY 09/07/19 Surgical History: Surgical History (Last Reviewed 09/08/19 @ 12:27 by Eben Mccracken MD) History of coronary artery stent placement (Resolved) Onset Date: 03/18/07 Z95.5 PCI-BMS-Mid LAD w/ 2.75 x 12 mm Liberte Stent 03/18/2007 H/O coronary artery bypass surgery (Resolved) Onset Date: 07/29/09 Z95.1 CABG x 3 COX-LAD, SVG-OM1, SVG-Distal RCA at its bifurcation 07/29/2009 History of angioplasty of peripheral vessel Z98.62 History of appendectomy Z90.49 History of hysterectomy Z90.710 History of left heart catheterization Onset Date: 06/2012 Z98.890 History of left mastectomy Z90.12 History of repair of rotator cuff Z98.890 shoulder joint surgery Surgical History: coronary bypass surgery, pacemaker implantation, - - fem artery bypass, Stent. 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 Denies: Anorexia, Chills, Fever, Night Sweats HEENT: Denies: Head Aches, Sinus Congestion, Sinus Drainage Cardiovascular: Reports: Chest Pain, Edema. Denies: Orthopnea, Palpitations, Paroxysmal Noc. Dyspnea Respiratory: Reports: Shortness of Breath. Denies: Cough Gastrointestinal: Denies: Abdominal Pain, Hematemesis, Hematochezia, Nausea, Melena, Vomiting Genitourinary: Denies: Dysuria, Frequency, Hematuria, Urgency Musculoskeletal: Denies: Joint Pain, Joint Tenderness Skin: Denies: Rash Neurological: Denies: Focal weakness, Numbness, Tingling Psychiatric: Denies: Homicidal Ideations, Suicidal Ideations Hematologic/ Lymphatic: Denies: Easy Bruising, Easy Bleeding VTE Information - Inpt Only VTE Present on Admission: No VTE Mechan Device Prophylaxis: None VTE Pharm Prophylaxis ordered?: Yes Patient Problems: Active and Suspected Problems (Last Reviewed 08/18/19 @ 14:05 by Mark Hernandez MD) CHF exacerbation (Acute) Objective: GENERAL: cooperative HEENT: Atraumatic; EYES; Anicteric, Normal Conjunctiva NECK; supple, normal thyroid, RESPIRATORY: Diminished to auscultation CARDIOVASCULAR: Irregular S1-S2 GI: soft, normoactive bowel sounds, : No Renal angle tenderness; EXTREMITIES: Bipedal edema, no clubbing, MUSCULOSKELETAL: no muscle waisting NEURO: Awake; no lateralizing signs. SKIN: No Rash PSYCH; Flat affect - Physical Exam Vitals/I&O's: Vital Signs Temp Pulse Resp BP Pulse Ox 98.3 F 60 23 H 168/79 H 97 09/08/19 07:16 09/08/19 10:10 09/08/19 10:10 09/08/19 10:10 09/08/19 10:10 Oxygen Delivery Method Room Air Weight: 57.3 kg Body Mass Index (BMI) 23.1 Laboratory Results 09/08/19 07:45: WBC 10.9, RBC 4.33, Hgb 13.8, Hct 44.3, MCV 102.3 H, MCH 31.9, MCHC 31.2 L, RDW Std Deviation 53.9 H, RDW Coeff of Zainab 14.2, Plt Count 142 L, MPV 11.6, Immature Gran % (Auto) 0.300, Neut % (Auto) 83.8 H, Lymph % (Auto) 8.7 L, [place] % (Auto) 6.1, Eos % (Auto) 0.8, Baso % (Auto) 0.3, Absolute Neuts (auto) 9.1 H, Absolute Lymphs (auto) 0.94, Nucleated RBC % 0 09/08/19 07:45: Sodium 143, Potassium 4.9, Chloride 111 H, Carbon Dioxide 27.0, Anion Gap 5, BUN 20 H, Creatinine 1.27 H, Estim Creat Clear Calc 27.01, Est GFR (MDRD) Af Amer 52 L, Est GFR (MDRD) Non-Af 43 L, BUN/Creatinine Ratio 15.7, Glucose 127 H, Calcium 10.4 H, Total Bilirubin 1.80 H, AST 30, ALT 30, Alkaline Phosphatase 128 H, Troponin I < 0.015, Total Protein 6.8, Albumin 3.4, Globulin 3.4, Albumin/Globulin Ratio 1.0, Lipase 63 L 09/08/19 07:45: B-Natriuretic Peptide 2142.1 H 09/08/19 08:40: Urine Color Yellow, Urine Clarity Clear, Urine pH 5.0, Ur Specific [employer] 1.020, Urine Protein 100 H, Urine Glucose (UA) Normal, Urine Ketones Negative, Urine Occult Blood 25 H, Urine Nitrite Negative, Urine Bilirubin Negative, Urine Urobilinogen Normal, Ur Leukocyte Esterase 100 H, Urine RBC 0-5 SEEN, Urine WBC 0-5 SEEN, Ur Squamous Epith Cells 0-5 SEEN, Urine Bacteria 0 SEEN, Urine Mucus 0 SEEN Assessment/Plan All Active Problems (Last Reviewed 08/18/19 @ 14:05 by Mark Hernandez MD) CHF exacerbation (Acute) History of coronary artery stent placement (Resolved 03/18/07) H/O coronary artery bypass surgery (Resolved 07/29/09) Acute blood loss anemia (Resolved) Acute gouty arthritis (Resolved) Acute on chronic kidney failure (Resolved) Acute systolic (congestive) heart failure (Resolved) CAP (community acquired pneumonia) (Resolved) Severe sepsis (Resolved) Cellulitis (Ruled-out) Patient is an 83-year-old lady with significant past cardiac history including coronary artery disease status post CABG, conduction system disorder status post pacemaker ischemic cardiomyopathy with an ejection fraction of 35% who presented with progressive shortness of breath and bipedal edema 1. Acute on chronic congestive heart failure with reduced ejection fraction ?Admitted to a monitored bed, ordered serial cardiac enzymes, patient placed on strict input and output, daily weight, fluid restriction of thousand mL per 24 hours. Patient is on p.o. Lasix this was held started on IV Lasix 2. Sick sinus syndrome status post permanent pacemaker placement ?Biventricular cardiac pacemaker on 12/10/2015 3. Coronary artery disease ?Coronary artery disease with previous CABG in 2009and subsequent stent placement 4. Paroxysmal atrial fibrillation ?Rate controlled. Also on systemic anticoagulation with Eliquis did continue 5. Dyslipidemia ?Stable controlled on diet and exercise 6. Essential hypertension ?Patient blood pressure controlled she is on amlodipine, continued 7. Gouty arthritis ?Symptoms controlled on colchicine as well as allopurinol 8. Right upper quadrant pain ?Secondary to biliary colic CT of the abdomen obtained on admission demonstrated some sludge in the gallbladder as well as gallstones. Did discuss with patient and the daughter plan is for patient to follow-up with general surgery at [facility] for subsequent care 9. Chronic kidney disease stage III ?Kidney function at baseline. 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 History of breast cancer ?Status post left mastectomy currently in remission 11. Hyperparathyroidism ?Secondary to parathyroid adenoma which is currently being monitored per PCP 12. Hypothyroidism ~patient is on levothyroxine home dose continued 13. Anxiety disorder ?Patient is on trazodone 14. DVT prophylaxis ?On Eliquis Advance planning; did discuss with the patient and family (patient's daughter) regarding advanced directives as well as CODE STATUS. Did explain the various scenarios involved ( FULL CODE, DNR CCA, DNR CCA with no intubation, and DNR CC and what each meant) patient elected to pain full code with intubation and CPR if warranted. Order was placed. Time spent on discussion 18 minutes. Interpretation Summary Normal LV size. D shaped septum in diastole. The estimated ejection fraction is 37 %. The left atrium is mildly enlarged. 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 Mild-Moderate (1-2+) eccentric mitral valve insufficiency. Moderate pulmonary hypertension. Moderate (2+) tricuspid valve insufficiency. Compared to the previous the pulmonary pressures are higher Time spent on evaluating patient, reviewing old data, discussion with family and going over management plans; 55 minutes Code Visit Inpatient E&M: 52580 Init Hosp L3 Procedures: 22615 Advncd Care Plan 30 Min
[2019-09-08 12:35] LABS: Magnesium 2.2 mg/dL (1.6-2.6); Thyroid Stim Hormone (TSH) 1.16 uIU/mL (0.358-3.74)
--- NOTE | 2019-09-08 13:28 | PCM.CONS.R ---
Consultation - Renal 09/08/19 PCP/ Referring MD: Requesting physician: [] Primary care physician: Sudhir Fuller III, MD Reason for Consultation:: CKD stage 4 - History of Present Illness History of Present Illness: The patient is a 83 year old F CKD stage 3 baseline creatinine 1.2 admitted for shortness of breath that has been getting worse over the past 3 days. Patient states her breathing is worse when she lays flat with nausea, dry heaves. She had some chest discomfort with nausea.She would get anxious and her SOB would get worse. She was started on lasix 40mg daily 2 weeks ago by cardiology then dose reduced a week ago by pcp. She complains of a cough without fever or chills. She has increase leg edema. She is on lasix iv q8hrs on admission. Her appetite has been poor. She has continued abdominal pain and bloating. CT abdomen showed GB sludge and stones. TBili mildly elevated at 1.8 today. Calcium level mildly elevated at 10.5. She has a history of nonoperable hyperparathyroidism. - Allergies Allergies: Allergies alendronate sodium [From Fosamax] Allergy (Verified 09/08/19 07:15) Other nitrofurantoin [From Macrodantin] Allergy (Verified 09/08/19 07:15) Rash oxycodone [From Percocet] Allergy (Verified 09/08/19 07:15) Other quinapril [From Accupril] Allergy (Verified 09/08/19 07:15) Rash atorvastatin [From Lipitor] Adverse Reaction (Verified 09/08/19 07:15) Pain in joints diclofenac [From Arthrotec 50] Adverse Reaction (Verified 09/08/19 07:15) Upset Stomach misoprostol [From Arthrotec 50] Adverse Reaction (Verified 09/08/19 07:15) Upset Stomach - Current Medications Current Medications: Current Medications Acetaminophen (Tylenol) 650 mg PO Q6H PRN PRN PRN Reason: Pain Score 1-3/Temp > 100.7 F Al Hydroxide/Mg Hydroxide (Mylanta Ii) 30 ml PO Q6H PRN PRN PRN Reason: Gastric Burning Albuterol Sulfate (Ventolin Aerosols) 2.5 mg INHALATION Q2H PRN PRN PRN Reason: SOB/Wheezing Furosemide (Lasix) 40 mg IV Q8 JERSON Guaifenesin (Robitussin) 20 ml PO Q4H PRN PRN PRN Reason: COUGH Sodium Chloride () 250 mls @ 15 mls/hr IV .[id number] PRN PRN Reason: Saline Flush Sodium Chloride () 250 mls @ 15 mls/hr IV .[id number] PRN PRN Reason: Additional IVPB Infusion Magnesium Hydroxide (Milk Of Magnesia) 30 ml PO DAILY PRN PRN PRN Reason: Constipation Melatonin (Melatonin) 3 mg PO QHS PRN PRN PRN Reason: INSOMNIA Nitroglycerin (Nitrostat) 0.4 mg SUBLINGUAL Q5M PRN PRN Reason: CARDIAC/CHEST PAIN Ondansetron HCl (Zofran) 4 mg IV Q8H PRN PRN PRN Reason: NAUSEA/VOMITING Promethazine HCl (Phenergan) 25 mg IM Q6H PRN PRN PRN Reason: Breakthrough Nausea/Vomiting Sodium Chloride () 10 - 40 ml IV UD PRN PRN Reason: SALINE FLUSH - Past Medical History Past Medical History (Chronic Problems): Chronic Problems (Last Reviewed 09/08/19 @ 12:27 by Eben Mccracken MD) Vision changes (Chronic) Paroxysmal atrial fibrillation (Chronic) Sick sinus syndrome (Chronic) Left bundle branch block (LBBB) (Chronic) Biventricular cardiac pacemaker in situ (Chronic 12/10/15) Initial implant 06/27/2009 then upgrade to Bi-V 2015 Atherosclerosis of coronary artery of [place] heart without angina pectoris (Chronic) Ischemic cardiomyopathy (Chronic) Chronic systolic (congestive) heart failure (Chronic) Essential (primary) hypertension (Chronic) Hyperlipidemia (Chronic) Chronic renal failure, stage 4 (severe) (Chronic) History of breast cancer (Chronic) - Past Surgical History Surgical History: coronary bypass surgery, pacemaker implantation, - - fem artery bypass, Stent. - Social History Smoking Status: Never smoker - Family History Maternal Family History: Family History (Last Reviewed 09/08/19 @ 12:28 by Eben Mccracken MD) Sister Breast cancer Hypertension History Items: No pertinent history Paternal Family History: Family History (Last Reviewed 09/08/19 @ 12:28 by Eben Mccracken MD) Sister Breast cancer Hypertension History Items: No pertinent history Review of Systems Constitutional: Reports: Anorexia, Weakness, Fatigue. Denies: Chills, Fever Cardiovascular: Reports: Chest Pain. Denies: Heaviness, Light Headedness, Syncope Respiratory: Reports: Cough Gastrointestinal: Reports: Abdominal Pain, Nausea, Vomiting, - - bloating. Denies: Constipation, Diarrhea Genitourinary: Denies: Dysuria, Frequency Musculoskeletal: Reports: - - leg swelling Skin: Denies: Rash Neurological: Denies: Tremor, Seizures Hematologic/ Lymphatic: Reports: Anemia Patient Problems: Active and Suspected Problems (Last Reviewed 09/08/19 @ 12:27 by Eben Mccracken MD) CHF exacerbation (Acute) - Physical Exam Vitals/I&O's: Vital Signs Temp Pulse Resp BP Pulse Ox 97.0 F L 60 18 146/83 H 94 09/08/19 11:30 09/08/19 11:30 09/08/19 11:30 09/08/19 11:30 09/08/19 11:30 Oxygen Delivery Method Room Air Weight: 57.2 kg Body Mass Index (BMI) 23.1 General: Alert, Oriented x3, Cooperative, - - nauseated, dry heaving Oral: Dry Mucosa Lungs: Rales - faint in bases Cardiovascular: Regular rate Abdomen: Bowel Sounds Present, Soft, Non Tender, Distended - mild Extremities: Edema - mild Skin: No rashes Neurological: Cranial nerves II-XII grossly intact Psych/Mental Status: Anxious, Alert and oriented to time, place, person, mood and affect Laboratory Results 09/08/19 07:45: WBC 10.9, RBC 4.33, Hgb 13.8, Hct 44.3, MCV 102.3 H, MCH 31.9, MCHC 31.2 L, RDW Std Deviation 53.9 H, RDW Coeff of Zainab 14.2, Plt Count 142 L, MPV 11.6, Immature Gran % (Auto) 0.300, Neut % (Auto) 83.8 H, Lymph % (Auto) 8.7 L, Harlan % (Auto) 6.1, Eos % (Auto) 0.8, Baso % (Auto) 0.3, Absolute Neuts (auto) 9.1 H, Absolute Lymphs (auto) 0.94, Nucleated RBC % 0 09/08/19 07:45: Sodium 143, Potassium 4.9, Chloride 111 H, Carbon Dioxide 27.0, Anion Gap 5, BUN 20 H, Creatinine 1.27 H, Estim Creat Clear Calc 27.01, Est GFR (MDRD) Af Amer 52 L, Est GFR (MDRD) Non-Af 43 L, BUN/Creatinine Ratio 15.7, Glucose 127 H, Calcium 10.4 H, Total Bilirubin 1.80 H, AST 30, ALT 30, Alkaline Phosphatase 128 H, Troponin I < 0.015, Total Protein 6.8, Albumin 3.4, Globulin 3.4, Albumin/Globulin Ratio 1.0, Lipase 63 L 09/08/19 07:45: B-Natriuretic Peptide 2142.1 H 09/08/19 08:40: Urine Color Yellow, Urine Clarity Clear, Urine pH 5.0, Ur Specific [place] 1.020, Urine Protein 100 H, Urine Glucose (UA) Normal, Urine Ketones Negative, Urine Occult Blood 25 H, Urine Nitrite Negative, Urine Bilirubin Negative, Urine Urobilinogen Normal, Ur Leukocyte Esterase 100 H, Urine RBC 0-5 SEEN, Urine WBC 0-5 SEEN, Ur Squamous Epith Cells 0-5 SEEN, Urine Bacteria 0 SEEN, Urine Mucus 0 SEEN 09/08/19 11:55: Magnesium 2.2, Troponin I < 0.015, TSH 1.16 Clinical Impression(s) from Imaging Studies Chest X-Ray 09/08/19 07:37 IMPRESSION: Small left pleural effusion with left basilar atelectasis. Electronically Signed: Jerel Churchill, at 8:39 EST , Service support , Abdomen/Pelvis CT 09/08/19 09:48 IMPRESSION: Small amount of sludge or gallstones seen within the gallbladder lumen. Marked atrophy of the right kidney. Electronically Signed: Jerel Churchill, at 11:31 EST , Service support , Current Medications Acetaminophen (Tylenol) 650 mg PO Q6H PRN PRN PRN Reason: Pain Score 1-3/Temp > 100.7 F Al Hydroxide/Mg Hydroxide (Mylanta Ii) 30 ml PO Q6H PRN PRN PRN Reason: Gastric Burning Albuterol Sulfate (Ventolin Aerosols) 2.5 mg INHALATION Q2H PRN PRN PRN Reason: SOB/Wheezing Furosemide (Lasix) 40 mg IV Q8 JERSON Guaifenesin (Robitussin) 20 ml PO Q4H PRN PRN PRN Reason: COUGH Sodium Chloride () 250 mls @ 15 mls/hr IV .[id number] PRN PRN Reason: Saline Flush Sodium Chloride () 250 mls @ 15 mls/hr IV .[id number] PRN PRN Reason: Additional IVPB Infusion Magnesium Hydroxide (Milk Of Magnesia) 30 ml PO DAILY PRN PRN PRN Reason: Constipation Melatonin (Melatonin) 3 mg PO QHS PRN PRN PRN Reason: INSOMNIA Nitroglycerin (Nitrostat) 0.4 mg SUBLINGUAL Q5M PRN PRN Reason: CARDIAC/CHEST PAIN Ondansetron HCl (Zofran) 4 mg IV Q8H PRN PRN PRN Reason: NAUSEA/VOMITING Promethazine HCl (Phenergan) 25 mg IM Q6H PRN PRN PRN Reason: Breakthrough Nausea/Vomiting Sodium Chloride () 10 - 40 ml IV UD PRN PRN Reason: SALINE FLUSH Assessment/Plan All Active Problems (Last Reviewed 09/08/19 @ 12:27 by Ebne Mccracken MD) CHF exacerbation (Acute) History of coronary artery stent placement (Resolved 03/18/07) H/O coronary artery bypass surgery (Resolved 07/29/09) Acute blood loss anemia (Resolved) Acute gouty arthritis (Resolved) Acute on chronic kidney failure (Resolved) Acute systolic (congestive) heart failure (Resolved) CAP (community acquired pneumonia) (Resolved) Severe sepsis (Resolved) Cellulitis (Ruled-out) 1. CKD stage 4. Creatinine at baseline. Watch for prerenal event on iv lasix with poor oral intake from NV 2. Nausea, vomiting abdominal pain. CT abdomen, primary service mgmt 3. Hyperparathyroidism with hypercalcemia, monitor 4. SOB, CHF, CMP EF 35% on iv lasix. Watch for dehydration in presence of NV, anorexia. 5. Gout on allopurinol
[2019-09-08] MEDS: proMETHazine 25 MG/ML Syringe IM (13:53)
[2019-09-08] MEDS: 0.9% Saline Lock 10 ML Syringe IV (13:53)
[2019-09-08] MEDS: Furosemide 40 MG/4 ML Vial IV ×2 (13:53→22:09)
--- NOTE | 2019-09-08 16:20 | CASEMGMT ---
RN CM Note: Intro role of CM to patient's in room. Pt is sleeping. Pt's requested assessment be deferred until tomorrow as they are very tired. RN CM will defer assessment. is not listed on demographics and does not wish to be. States daughter listed handles all the decisions. Rachel HUGON RN ACM
[2019-09-08] MEDS: Gabapentin 100 MG Capsule PO (17:39)
--- NOTE | 2019-09-08 18:48 | NURSING ---
Reviewed and agreed on all charting with Michelle Elaine RN
[2019-09-08] MEDS: Carvedilol 25 MG Tablet PO (22:09)
[2019-09-08] MEDS: APIXABAN 2.5 MG TABLET PO (22:09)
[2019-09-09] VITALS (12 sets, daily range): BP systolic 112–127; BP diastolic 47–68; PULSE 60–63; RESP 16–18; TEMP 36.7–37.1; O2SAT 90–95
[2019-09-09] MEDS: Levothyroxine 100 MCG Tablet PO (06:20)
[2019-09-09] MEDS: Furosemide 40 MG/4 ML Vial IV ×2 (06:20→17:41)
[2019-09-09 08:14] LABS: Absolute Lymphocyte Count 1.28 X10^3/uL (0.83-4.51); Absolute Neutrophil Count 5.8 X10^3/uL (2.0-7.7); Basophil# 0.03 X10^3/uL; Basophil% 0.4 % (0-1); Eosinophil# 0.14 X10^3/uL; Eosinophils% 1.8 % (0-5); Hematocrit 39.8 % (37-47); Hemoglobin 12.5 g/dL (12.0-15.0); Lymphocyte # 1.28 X10^3/ul (4.0); Lymphocyte % 16.1 % (19-41); Mean Corp Hgb Conc 31.4 g/dL (32-36); Mean Corpuscular Hgb 31.6 pg (27.0-32.0); Mean Corpuscular Volume 100.5 fL (81-99); Mean Platelet Vol. 11.5 fl (6.2-12.0); Monocyte# 0.65 X10^3/uL; Monocyte% 8.2 % (0-10); NRBC Flagged by Analyzer 0 % (0-5); Neutrophil # 5.83 X10^3/uL (2.7-7.7); Neutrophil % 73.2 % (47-70); Platelet Count 141 K/mm3 (150-450); RBC Distribution Width CV 14.2 % (11.6-14.6); RBC Distribution Width SD 51.9 fl (35.1-43.9); Red Blood Count 3.96 M/mm3 (4.2-5.4)
--- NOTE | 2019-09-09 08:14 | PN_ITS ---
Patient Problems: Active and Suspected Problems (Last Reviewed 09/08/19 @ 12:27 by Eben Mccracken MD) CHF exacerbation (Acute) Reason for Visit: Acute congestive heart failure Subjective: Patient admitted with acute congestive heart failure to a monitored bed started on Lasix in negative fluid balance of 1.8 L since admission. Objective: GENERAL: cooperative HEENT: Atraumatic; EYES; Anicteric, Normal Conjunctiva NECK; supple, normal thyroid, RESPIRATORY: Diminished to auscultation CARDIOVASCULAR: Irregular S1-S2 GI: soft, normoactive bowel sounds, : No Renal angle tenderness; EXTREMITIES: Bipedal edema, no clubbing, MUSCULOSKELETAL: no muscle waisting NEURO: Awake; no lateralizing signs. SKIN: No Rash PSYCH; Flat affect Vitals/I&O's: Vital Signs Temp Pulse Resp BP Pulse Ox 98.8 F 60 18 126/65 H 95 09/09/19 06:15 09/09/19 06:55 09/09/19 06:15 09/09/19 06:15 09/09/19 06:15 Oxygen Delivery Method Room Air Weight: 57.1 kg Body Mass Index (BMI) 23.1 Intake and Output for Last 24 Hours 09/07/19 09/08/19 09/09/19 23:59 23:59 23:59 Intake Total 440 / 440 75 / 75 Output Total 1350 / 1350 700 / 700 Balance -910 / -910 -625 / -625 Laboratory Results 09/08/19 07:45: Sodium 143, Potassium 4.9, Chloride 111 H, Carbon Dioxide 27.0, Anion Gap 5, BUN 20 H, Creatinine 1.27 H, Estim Creat Clear Calc 27.01, Est GFR (MDRD) Af Amer 52 L, Est GFR (MDRD) Non-Af 43 L, BUN/Creatinine Ratio 15.7, Glucose 127 H, Calcium 10.4 H, Total Bilirubin 1.80 H, AST 30, ALT 30, Alkaline Phosphatase 128 H, Troponin I < 0.015, Total Protein 6.8, Albumin 3.4, Globulin 3.4, Albumin/Globulin Ratio 1.0, Lipase 63 L 09/08/19 07:45: B-Natriuretic Peptide 2142.1 H 09/08/19 08:40: Urine Color Yellow, Urine Clarity Clear, Urine pH 5.0, Ur Specific [place] 1.020, Urine Protein 100 H, Urine Glucose (UA) Normal, Urine Ketones Negative, Urine Occult Blood 25 H, Urine Nitrite Negative, Urine Bilirubin Negative, Urine Urobilinogen Normal, Ur Leukocyte Esterase 100 H, Urine RBC 0-5 SEEN, Urine WBC 0-5 SEEN, Ur Squamous Epith Cells 0-5 SEEN, Urine Bacteria 0 SEEN, Urine Mucus 0 SEEN 09/08/19 11:55: Magnesium 2.2, Troponin I < 0.015, TSH 1.16 09/08/19 14:25: Troponin I < 0.015 09/09/19 07:45: WBC Pending, RBC Pending, Hgb Pending, Hct Pending, MCV Pending, MCH Pending, MCHC Pending, RDW Std Deviation Pending, RDW Coeff of Zainab Pending, Plt Count Pending, Neut % (Auto) Pending, Absolute Neuts (auto) Pending 09/09/19 07:45: Sodium Pending, Potassium Pending, Chloride Pending, Carbon Dioxide Pending, Anion Gap Pending, BUN Pending, Creatinine Pending, Est GFR (MDRD) Af Amer Pending, Est GFR (MDRD) Non-Af Pending, BUN/Creatinine Ratio Pending, Glucose Pending, Calcium Pending, Magnesium Pending 09/09/19 07:45: Phosphorus Pending Current Medications Acetaminophen (Tylenol) 650 mg PO Q6H PRN PRN PRN Reason: Pain Score 1-3/Temp > 100.7 F Al Hydroxide/Mg Hydroxide (Mylanta Ii) 30 ml PO Q6H PRN PRN PRN Reason: Gastric Burning Albuterol Sulfate (Ventolin Aerosols) 2.5 mg INHALATION Q2H PRN PRN PRN Reason: SOB/Wheezing All[facility]urin[facility] ([facility]oprim) [facility] Amlodipine Besylate (Norvasc) 5 mg PO DAILY JERSON Apixaban (Eliquis) 2.5 mg PO BID [facility] Last Admin: 09/08/19 22:09 Dose: 2.5 mg Documented by: Carvedilol (Coreg) 25 mg PO BID [facility] Last Admin: 09/08/19 22:09 Dose: 25 mg Documented by: Colchicine (Colchicine) 0.6 mg [facility] Famotidine (Pepcid) 20 mg PO DAILY [facility] Furosemide (Lasix) 40 mg IV Q8 [facility] Last Admin: 09/09/19 06:20 Dose: 40 mg Documented by: Gabapentin (Neurontin) 100 mg PO BIDCM [facility] Last Admin: 09/08/19 17:39 Dose: 100 mg Documented by: Guaifenesin (Robitussin) 20 ml PO Q4H PRN PRN PRN Reason: COUGH Sodium Chloride () 250 mls @ 15 mls/hr IV .[id number] PRN PRN Reason: Saline Flush Sodium Chloride () 250 mls @ 15 mls/hr IV .[id number] PRN PRN Reason: Additional IVPB Infusion Levothyroxine Sodium (Synthroid) 100 mcg PO DAILY@0600 [facility] Last Admin: 09/09/19 06:20 Dose: 100 mcg Documented by: Magnesium Hydroxide (Milk Of Magnesia) 30 ml PO DAILY PRN PRN PRN Reason: Constipation Melatonin (Melatonin) 3 mg PO QHS PRN PRN PRN Reason: INSOMNIA Nitroglycerin (Nitrostat) 0.4 mg SUBLINGUAL Q5M PRN PRN Reason: CARDIAC/CHEST PAIN Ondansetron HCl (Zofran) 4 mg IV Q6H PRN PRN PRN Reason: NAUSEA/VOMITING Promethazine HCl (Phenergan) 25 mg IM Q6H PRN PRN PRN Reason: Breakthrough Nausea/Vomiting Last Admin: 09/08/19 13:53 Dose: 25 mg Documented by: Sodium Chloride () 10 - 40 ml IV UD PRN PRN Reason: SALINE FLUSH Last Admin: 09/08/19 13:53 Dose: 10 ml Documented by: STROKE Vital Signs/Narrative: Vital Signs Temp Pulse Resp BP Pulse Ox 09/09/19 06:55 60 09/09/19 06:15 98.8 F 63 18 126/65 H 95 Medical Necessity - Tobacco Use Smoking Status: Never smoker Assessment/Plan All Active Problems (Last Reviewed 09/08/19 @ 12:27 by Eben Mccracken MD) CHF exacerbation (Acute) History of coronary artery stent placement (Resolved 03/18/07) H/O coronary artery bypass surgery (Resolved 07/29/09) Acute blood loss anemia (Resolved) Acute gouty arthritis (Resolved) Acute on chronic kidney failure (Resolved) Acute systolic (congestive) heart failure (Resolved) CAP (community acquired pneumonia) (Resolved) Severe sepsis (Resolved) Cellulitis (Ruled-out) Patient is an 83-year-old lady with significant past cardiac history including coronary artery disease status post CABG, conduction system disorder status post pacemaker ischemic cardiomyopathy with an ejection fraction of 35% who presented with progressive shortness of breath and bipedal edema 1. Acute on chronic congestive heart failure with reduced ejection fraction ?Admitted to a monitored bed, ordered serial cardiac enzymes, patient placed on strict input and output, daily weight, fluid restriction of thousand mL per 24 hours. Patient is on p.o. Lasix this was held started on IV Lasix ?09/09/2019; patient did respond to Lasix. Only a negative fluid balance of almost 1.8 L since admission. 2. Sick sinus syndrome status post permanent pacemaker placement ?Biventricular cardiac pacemaker on 12/10/2015 3. Coronary artery disease ?Coronary artery disease with previous CABG in 2009and subsequent stent placeme nt 4. Paroxysmal atrial fibrillation ?Rate controlled. Also on systemic anticoagulation with Eliquis did continue 5. Dyslipidemia ?Stable controlled on diet and exercise 6. Essential hypertension ?Patient blood pressure controlled she is on amlodipine, continued 7. Gouty arthritis ?Symptoms controlled on colchicine as well as allopurinol 8. Right upper quadrant pain ?Secondary to biliary colic CT of the abdomen obtained on admission demonstrated some sludge in the gallbladder as well as gallstones. Did discuss with patient and the daughter plan is for patient to follow-up with general surgery at [facility] for subsequent care ?09/09/2019: Did discuss case with general surgery Dr. Hawkins plan is for patient to follow-up with him as outpatient for subsequent management 9. Chronic kidney disease stage III ?Kidney function at baseline. 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 Michelle Hull 10. History of breast cancer ?Status post left mastectomy currently in remission 11. Hyperparathyroidism ?Secondary to parathyroid adenoma which is currently being monitored per PCP 12. Hypothyroidism ~patient is on levothyroxine home dose continued 13. Anxiety disorder ?Patient is on trazodone 14. DVT prophylaxis ?On Eliquis Advance planning; did discuss with the patient and family (patient's daughter) regarding advanced directives as well as CODE STATUS. Did explain the various scenarios involved ( FULL CODE, DNR CCA, DNR CCA with no intubation, and DNR CC and what each meant) patient elected to pain full code with intubation and CPR if warranted. Order was placed. Time spent on discussion 18 minutes. Interpretation Summary Normal LV size. D shaped septum in diastole. The estimated ejection fraction is 37 %. The left atrium is mildly enlarged. 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 Mild-Moderate (1-2+) eccentric mitral valve insufficiency. Moderate pulmonary hypertension. Moderate (2+) tricuspid valve insufficiency. Compared to the previous the pulmonary pressures are higher Time spent on evaluating patient, reviewing old data, discussion with family and going over management plans; 55 minutes Code Visit Inpatient E&M: 28418 Subs Hosp L2
[2019-09-09 08:31] LABS: Anion Gap 4 (5-15); BUN 27 mg/dL (7-18); BUN/Creat Ratio 19.7 RATIO (10-20); Calcium,Total 9.7 mg/dL (8.5-10.1); Chloride 104 mmol/L (98-107); Creatinine, Serum 1.37 mg/dL (0.55-1.02); EST Glomerular Filtration Rate 39 mL/min (>60); Est Glom Filt Rate - Afr Amer 47 mL/min (>60); Estimated Creatinine Clearance 25.04 ml/min; Glucose 93 mg/dL (74-106); Magnesium 1.8 mg/dL (1.6-2.6); Potassium 3.4 mmol/L (3.5-5.1); Sodium Level 143 mmol/L (136-145)
[2019-09-09] MEDS: Allopurinol 100 MG Tablet PO (09:53)
[2019-09-09] MEDS: Famotidine 20 MG Tablet PO (09:53)
[2019-09-09] MEDS: amLODIPine 5 MG Tablet PO (09:53)
[2019-09-09] MEDS: Carvedilol 25 MG Tablet PO ×2 (09:53→21:32)
[2019-09-09] MEDS: APIXABAN 2.5 MG TABLET PO ×2 (09:53→21:32)
--- NOTE | 2019-09-09 15:47 | CM.UR ---
RN CM Assessment Introduced role of RN CM to patient. Patient is alert and able to participate in RN CM Assessment. Care providers, pharmacy, and demographics verified. No family at bedside. Presentation: shortness of breath and abd pain Admit Dx: CHF Re-Admit: No Barriers/Issues: None PCP: Jonny Specialists: Rito Hernandez (ortho) Preferred [facility]acy[facility] Insurance: MCR and [employer] Rx Benefit: Yes LNOK: is LNOK however they put Treecie Ice (daughter) for everything because she helps with everything. Daughter takes patient to all her doctor appts Living Arrangements: 1 story home with 2 steps in. No railing but states, I don't need one. Lives with . ADL?s: States previously independent with all ADLs. Transportation: States able to drive herself but her daughter does take her to all her appts. DME: walker [facility]: [facility] [place] SNF: [facility] Goal: Home. Denies any needs. DC PLAN: Home. Encouraged her to let us know should she think of anything or anything arises. Verb agreement and understanding. Michelle Avelar RN, CCM.
[2019-09-09] MEDS: 0.9% Saline Lock 10 ML Syringe IV (17:41)
[2019-09-09] MEDS: guaiFENesin 10 ML UDC (200MG/10ML) 20 ML PO (20:10)
[2019-09-10 02:08] VITALS: BP 131/69; PULSE 62; RESP 16; TEMP 36.8; O2SAT 94
[2019-09-10 03:00] VITALS: PULSE 60
[2019-09-10 06:10] VITALS: BP 135/71; PULSE 60; RESP 16; TEMP 36.7; O2SAT 94
[2019-09-10] MEDS: Levothyroxine 100 MCG Tablet PO (06:12)
[2019-09-10 06:53] VITALS: PULSE 60
[2019-09-10 06:56] VITALS: O2SAT 95
[2019-09-10 07:08] LABS: Absolute Lymphocyte Count 1.52 X10^3/uL (0.83-4.51); Absolute Neutrophil Count 5.1 X10^3/uL (2.0-7.7); Basophil# 0.03 X10^3/uL; Basophil% 0.4 % (0-1); Eosinophil# 0.25 X10^3/uL; Eosinophils% 3.3 % (0-5); Hematocrit 39.1 % (37-47); Hemoglobin 12.4 g/dL (12.0-15.0); Lymphocyte # 1.52 X10^3/ul (4.0); Lymphocyte % 19.9 % (19-41); Mean Corp Hgb Conc 31.7 g/dL (32-36); Mean Corpuscular Hgb 31.6 pg (27.0-32.0); Mean Corpuscular Volume 99.7 fL (81-99); Mean Platelet Vol. 11.8 fl (6.2-12.0); Monocyte# 0.72 X10^3/uL; Monocyte% 9.4 % (0-10); NRBC Flagged by Analyzer 0 % (0-5); Neutrophil % 66.7 % (47-70); Platelet Count 144 K/mm3 (150-450); RBC Distribution Width CV 14.1 % (11.6-14.6); RBC Distribution Width SD 51.8 fl (35.1-43.9); Red Blood Count 3.92 M/mm3 (4.2-5.4); White Blood Count 7.6 K/mm3 (4.4-11.0)
[2019-09-10 07:23] LABS: Anion Gap 4 (5-15); BUN 40 mg/dL (7-18); BUN/Creat Ratio 25.2 RATIO (10-20); Calcium,Total 9.8 mg/dL (8.5-10.1); Chloride 104 mmol/L (98-107); Creatinine, Serum 1.59 mg/dL (0.55-1.02); EST Glomerular Filtration Rate 33 mL/min (>60); Est Glom Filt Rate - Afr Amer 40 mL/min (>60); Estimated Creatinine Clearance 21.58 ml/min; Glucose 95 mg/dL (74-106); Potassium 3.7 mmol/L (3.5-5.1); Sodium Level 141 mmol/L (136-145)
--- NOTE | 2019-09-10 08:35 | DCINST_ITS ---
- Discharge Diagnoses Current Active Problems: Current Active and Chronic Problems (Last Reviewed 09/08/19 @ 12:27 by bEen Mccracken MD) CHF exacerbation (Acute) You will use the following diet at home:: Fluid restricted (specify 2000 mls, 1500 mls) Discharge Activity: Return to Normal Activity Allergies/Adverse Reactions: Allergies alendronate sodium [From Fosamax] Allergy (Verified 09/08/19 07:15) Other nitrofurantoin [From Macrodantin] Allergy (Verified 09/08/19 07:15) Rash oxycodone [From Percocet] Allergy (Verified 09/08/19 07:15) Other quinapril [From Accupril] Allergy (Verified 09/08/19 07:15) Rash atorvastatin [From Lipitor] Adverse Reaction (Verified 09/08/19 07:15) Pain in joints diclofenac [From Arthrotec 50] Adverse Reaction (Verified 09/08/19 07:15) Upset Stomach misoprostol [From Arthrotec 50] Adverse Reaction (Verified 09/08/19 07:15) Upset Stomach Medications to take at Discharge Gabapentin [Neurontin] 100 mg PO BIDCM #60 cap 09/02/18 allopurinol 100 mg tablet 100 mg PO DAILY 06/15/19 levothyroxine 100 mcg tablet 100 mcg PO DAILY 06/15/19 carvedilol 25 mg tablet 25 mg PO BID tab 08/18/19 meclizine 12.5 mg tablet 12.5 mg PO TID PRN PRN 08/18/19 nizatidine 150 mg capsule 150 mg PO BID cap 08/18/19 furosemide 40 mg tablet 40 mg PO DAILY 09/07/19 Amlodipine Besylate [Norvasc] 5 mg PO DAILY 09/08/19 Apixaban [Eliquis] 2.5 mg PO BID 09/08/19 Colchicine 0.6 mg PO DAILYCM 09/08/19 Primary Care Physician: Sudihr Fuller III, MD [Primary Care Provider] - Please follow up with your Primary Care Physician in: in 5-7 days Test Results: Test results from this visit will be discussed in further detail at your follow- up appointment, if applicable. Please Follow Up With: Jose Hawkins MD When: in 1-2 weeks Proposed Discharge Date: 09/10/19
--- NOTE | 2019-09-10 08:44 | DS.PCM_ITS ---
Discharge Date and Diagnosis - Problem List Patient Problems: Active and Suspected Problems (Last Reviewed 09/08/19 @ 12:27 by Eben Mccracken MD) CHF exacerbation (Acute) Date of Admission: 09/08/19 Date of Discharge: 09/10/19 - Primary Discharge Diagnosis Active and Suspected Problems (Last Reviewed 09/08/19 @ 12:27 by Eben Mccracken MD) CHF exacerbation (Acute) - Secondary Discharge Diagnosis Chronic Problems (Last Reviewed 09/08/19 @ 12:27 by Eben Mccracken MD) Vision changes (Chronic) Paroxysmal atrial fibrillation (Chronic) Sick sinus syndrome (Chronic) Left bundle branch block (LBBB) (Chronic) Biventricular cardiac pacemaker in situ (Chronic 12/10/15) Initial implant 06/27/2009 then upgrade to Bi-V 2016 Atherosclerosis of coronary artery of [place] heart without angina pectoris (Chronic) Ischemic cardiomyopathy (Chronic) Chronic systolic (congestive) heart failure (Chronic) Essential (primary) hypertension (Chronic) Hyperlipidemia (Chronic) Chronic renal failure, stage 4 (severe) (Chronic) History of breast cancer (Chronic) Hospital Course and Treatment Imaging Results: Clinical Impression(s) from Imaging Studies Chest X-Ray 09/08/19 07:37 IMPRESSION: Small left pleural effusion with left basilar atelectasis. Electronically Signed: Jerel Churchill, at 8:39 EST , Service support , Abdomen/Pelvis CT 09/08/19 09:48 IMPRESSION: Small amount of sludge or gallstones seen within the gallbladder lumen. Marked atrophy of the right kidney. Electronically Signed: Jerel Churchill at 11:31 EST , Service support , Interpretation Summary Normal LV size. D shaped septum in diastole. The estimated ejection fraction is 37 %. The left atrium is mildly enlarged. 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 Mild-Moderate (1-2+) eccentric mitral valve insufficiency. Moderate pulmonary hypertension. Moderate (2+) tricuspid valve insufficiency. Compared to the previous the pulmonary pressures are higher Operations: None Summary of Care Provided: Patient is an 83-year-old lady with significant past cardiac history including coronary artery disease status post CABG, conduction system disorder status post pacemaker ischemic cardiomyopathy with an ejection fraction of 35% who presented with progressive shortness of breath and bipedal edema 1. Acute on chronic congestive heart failure with reduced ejection fraction ?Admitted to a monitored bed, ordered serial cardiac enzymes, patient placed on strict input and output, daily weight, fluid restriction of thousand mL per 24 hours. Patient is on p.o. Lasix this was held started on IV Lasix ?09/09/2019; patient did respond to Lasix. negative fluid balance of almost 1.8 L since admission. 09/10/2019; patient was deemed stable enough to be discharged pressure patient is on Lasix 40 mg daily did advise patient to continue with current dose and to follow-up with both primary care physician as well as primary medical service technician for subsequent care 2. Sick sinus syndrome status post permanent pacemaker placement ?Biventricular cardiac pacemaker on 12/10/2015 3. Coronary artery disease ?Coronary artery disease with previous CABG in 2009and subsequent stent placement 4. Paroxysmal atrial fibrillation ?Rate controlled. Also on systemic anticoagulation with Eliquis did continue 5. Dyslipidemia ?Stable controlled on diet and exercise 6. Essential hypertension ?Patient blood pressure controlled she is on amlodipine, continued 7. Gouty arthritis ?Symptoms controlled on colchicine as well as allopurinol 8. Right upper quadrant pain ?Secondary to biliary colic CT of the abdomen obtained on admission demonstrated some sludge in the gallbladder as well as gallstones. Did discuss with patient and the daughter plan is for patient to follow-up with general surgery at [facility] for subsequent care ?09/09/2019: Did discuss case with general surgery Dr. Hawkins plan is for patient to follow-up with him as outpatient for subsequent management ?09/10/2019; patient will follow-up with general surgery Dr. Hawkins regarding her gallstones with biliary colic 9. Chronic kidney disease stage III ?Kidney function at baseline. 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 Michelle Hull 10. History of breast cancer ?Status post left mastectomy currently in remission 11. Hyperparathyroidism ?Secondary to parathyroid adenoma which is currently being monitored per PCP 12. Hypothyroidism ~patient is on levothyroxine home dose continued 13. Anxiety disorder ?Patient is on trazodone 14. DVT prophylaxis ?On Eliquis Patient Problems: Active and Suspected Problems (Last Reviewed 09/08/19 @ 12:27 by Eben Mccracken MD) CHF exacerbation (Acute) Objective: GENERAL: cooperative HEENT: Atraumatic; EYES; Anicteric, Normal Conjunctiva NECK; supple, normal thyroid, RESPIRATORY: Diminished to auscultation CARDIOVASCULAR: Irregular S1-S2 GI: soft, normoactive bowel sounds, NEURO: Awake; no lateralizing signs. SKIN: No Rash PSYCH; Flat affect - Physical Exam Vitals/I&O's: Vital Signs Temp Pulse Resp BP Pulse Ox 98.0 F 60 16 135/71 H 95 09/10/19 06:10 09/10/19 06:53 09/10/19 06:10 09/10/19 06:10 09/10/19 06:56 Oxygen Delivery Method Room Air Weight: 54.9 kg Body Mass Index (BMI) 23.1 Intake and Output for Last 24 Hours 09/08/19 09/09/19 09/10/19 23:59 23:59 23:59 Intake Total 440 / 440 795 / 795 300 / 300 Output Total 1350 / 1350 3850 / 3850 500 / 500 Balance -910 / -910 -3055 / -3055 -200 / -200 Laboratory Results 09/10/19 06:28: WBC 7.6, RBC 3.92 L, Hgb 12.4, Hct 39.1, MCV 99.7 H, MCH 31.6, MCHC 31.7 L, RDW Std Deviation 51.8 H, RDW Coeff of Zainab 14.1, Plt Count 144 L, MPV 11.8, Immature Gran % (Auto) 0.300, Neut % (Auto) 66.7, Lymph % (Auto) 19.9, Cotton % (Auto) 9.4, Eos % (Auto) 3.3, Baso % (Auto) 0.4, Absolute Neuts (auto) 5.1, Absolute Lymphs (auto) 1.52, Nucleated RBC % 0 09/10/19 06:28: Sodium 141, Potassium 3.7, Chloride 104, Carbon Dioxide 33.0 H, Anion Gap 4 L, BUN 40 H, Creatinine 1.59 H, Estim Creat Clear Calc 21.58, Est GFR (MDRD) Af Amer 40 L, Est GFR (MDRD) Non-Af 33 L, BUN/Creatinine Ratio 25.2 H , Glucose 95, Calcium 9.8 Current Medications Acetaminophen (Tylenol) 650 mg PO Q6H PRN PRN PRN Reason: Pain Score 1-3/Temp > 100.7 F Al Hydroxide/Mg Hydroxide (Mylanta Ii) 30 ml PO Q6H PRN PRN PRN Reason: Gastric Burning Albuterol Sulfate (Ventolin Aerosols) 2.5 mg INHALATION Q2H PRN PRN PRN Reason: SOB/Wheezing [facility] Last Admin: 09/09/19 09:53 Dose: 100 mg Documented by: Amlodipine Besylate (Norvasc) 5 mg PO DAILY [facility] Last Admin: 09/09/19 09:53 Dose: 5 mg Documented by: Apixaban (Eliquis) 2.5 mg PO BID [facility] Last Admin: 09/09/19 21:32 Dose: 2.5 mg Documented by: Carvedilol (Coreg) 25 mg PO BID [facility] Last Admin: 09/09/19 21:32 Dose: 25 mg Documented by: Colchicine (Colchicine) [facility] Last Admin: 09/09/19 09:47 Dose: Not Given Documented by: Famotidine (Pepcid) 20 mg PO DAILY [facility] Last Admin: 09/09/19 09:53 Dose: 20 mg Documented by: Furosemide (Lasix) 40 mg IV BID@1000,1800 [facility] Last Admin: 09/09/19 17:41 Dose: 40 mg Documented by: Gabap[facility]ontin) [facility] Last Admin: 09/09/19 17:40 Dose: Not Given Documented by: Guaifenesin (Robitussin) 20 ml PO Q4H PRN PRN PRN Reason: COUGH Last Admin: 09/09/19 20:10 Dose: 20 ml Documented by: Sodium Chloride () 250 mls @ 15 mls/hr IV .[id number] PRN PRN Reason: Saline Flush Sodium Chloride () 250 mls @ 15 mls/hr IV .[id number] PRN PRN Reason: Additional IVPB Infusion Levothyroxine Sodium (Synthroid) 100 mcg PO DAILY@0600 [facility] Last Admin: 09/10/19 06:12 Dose: 100 mcg Documented by: Magnesium Hydroxide (Milk Of Magnesia) 30 ml PO DAILY PRN PRN PRN Reason: Constipation Melatonin (Melatonin) 3 mg PO QHS PRN PRN PRN Reason: INSOMNIA Nitroglycerin (Nitrostat) 0.4 mg SUBLINGUAL Q5M PRN PRN Reason: CARDIAC/CHEST PAIN Ondansetron HCl (Zofran) 4 mg IV Q6H PRN PRN PRN Reason: NAUSEA/VOMITING Promethazine HCl (Phenergan) 25 mg IM Q6H PRN PRN PRN Reason: Breakthrough Nausea/Vomiting Last Admin: 09/08/19 13:53 Dose: 25 mg Documented by: Sodium Chloride () 10 - 40 ml IV UD PRN PRN Reason: SALINE FLUSH Last Admin: 09/09/19 17:41 Dose: 20 ml Documented by: Discharge Diet: 8 Cup Fluid Restriciton Discharge Activity: Return to Normal Activity Home Medications: Medications to take at Discharge Gabapentin [Neurontin] 100 mg PO BIDCM #60 cap 09/02/18 allopurinol 100 mg tablet 100 mg PO DAILY 06/15/19 levothyroxine 100 mcg tablet 100 mcg PO DAILY 06/15/19 carvedilol 25 mg tablet 25 mg PO BID tab 08/18/19 meclizine 12.5 mg tablet 12.5 mg PO TID PRN PRN 08/18/19 nizatidine 150 mg capsule 150 mg PO BID cap 08/18/19 furosemide 40 mg tablet 40 mg PO DAILY 09/07/19 Amlodipine Besylate [Norvasc] 5 mg PO DAILY 09/08/19 Apixaban [Eliquis] 2.5 mg PO BID 09/08/19 Colchicine 0.6 mg PO DAILYCM 09/08/19 Primary Care Physician: Sudhir Fuller III, MD [Primary Care Provider] - Please follow up with your Primary Care Physician in: in 5-7 days Please Follow Up With: Jose Hawkins MD When: in 1-2 weeks Disposition: Home Minutes spent on discharge:: 35 Patient Condition:: Stable Medical Necessity - Tobacco Use Smoking Status: Never smoker Meaningful Use Info Meaningful Use Diagnoses (Choose all that apply): CHF - CHF LEDY/ARB ordered at discharge?: Yes Reason LEDY/ARB not ordered?: Worsening renal disease Documented LVEF (%): 37 Code Visit Inpatient E&M: 32636 Disch Hosp
[2019-09-10 10:11] VITALS: BP 121/58; PULSE 60; RESP 18; TEMP 36.7; O2SAT 94
[2019-09-10] MEDS: amLODIPine 5 MG Tablet PO (10:15)
[2019-09-10] MEDS: Carvedilol 25 MG Tablet PO (10:15)
[2019-09-10] MEDS: Allopurinol 100 MG Tablet PO (10:15)
[2019-09-10] MEDS: APIXABAN 2.5 MG TABLET PO (10:15)
[2019-09-10] MEDS: 0.9% Saline Lock 10 ML Syringe IV (10:16)
--- NOTE | 2019-09-11 15:10 | CASEMGMT ---
SHERRILL CM Discharge Follow-up Phone Call: MALI: Zahira Strata: 3 Call Date: 09/11/2019 Discharge Date: 09/10/2019 Time of Call: 1510 Duration: 0 Admitting Diagnosis: CHF Discharge follow-up call attempted. Voicemail box received but stated to not be set up. Unable to leave a message a this time. Derrell Leahy RN
== END 2019-09-10 11:07 | disposition home or self-care (01) | DRG 291 ==
LOC: ED 10:03 → PCU 10:19
PROVIDERS: Admitting Provider Internal Medicine; Emergency Provider Emergency Medicine; PCP Family Medicine; Visit Provider Internal Medicine
DX: I13.0 Hypertensive heart and chronic kidney disease with heart failure and stage 1 through stage 4 chronic kidney disease, or unspecified chronic kidney disease (principal); I50.23 Acute on chronic systolic (congestive) heart failure; N18.4 Chronic kidney disease, stage 4 (severe); I48.0 Paroxysmal atrial fibrillation; I49.5 Sick sinus syndrome; I44.7 Left bundle-branch block, unspecified; I25.10 Atherosclerotic heart disease of native coronary artery without angina pectoris; I25.5 Ischemic cardiomyopathy; E78.5 Hyperlipidemia, unspecified; F41.9 Anxiety disorder, unspecified; D35.1 Benign neoplasm of parathyroid gland; E21.1 Secondary hyperparathyroidism, not elsewhere classified; E03.9 Hypothyroidism, unspecified; M10.9 Gout, unspecified; H53.9 Unspecified visual disturbance; K80.20 Calculus of gallbladder without cholecystitis without obstruction; Z95.1 Presence of aortocoronary bypass graft; Z95.0 Presence of cardiac pacemaker; Z95.5 Presence of coronary angioplasty implant and graft; Z85.3 Personal history of malignant neoplasm of breast; Z90.12 Acquired absence of left breast and nipple; Z79.01 Long term (current) use of anticoagulants; Z79.890 Hormone replacement therapy; Z79.899 Other long term (current) drug therapy
CPT/HCPCS: 36415; 71046; 74176; 80048; 80053; 81001; 83690; 83735; 83880; 84100; 84443; 84484; 85025; 93005; 93306; 99251; 99285; A4216; G0463; J1940; J2405

== ENCOUNTER → 2019-09-14 07:28 | Outpatient (CLI) | payer MEDICARE, OTHER, SELFPAY ==
[2019-09-08 12:43] VITALS: BMI 23.1
--- NOTE | 2019-09-14 07:30 | US_ITS ---
STUDY: ABDOMINAL ULTRASOUND - RIGHT UPPER QUADRANT REASON FOR VISIT: Female, 83 years old h/o gallstones TECHNIQUE: Ultrasound evaluation of the right upper quadrant was performed with real-time and static gill-scale imaging. TECHNICAL QUALITY: Adequate. COMPARISON: Comparison is made with prior CT scan of the abdomen and pelvis dated September 08, 2019. FINDINGS: Liver: The liver measures 16.8 cm. There is normal echogenicity of the liver. The bile ducts are within normal limits. There is hepatic color flow. The direction of portal flow is hepatopetal. There is no demonstrated mass lesion. Gallbladder: Normal distended gallbladder. The gallbladder wall measures 2.0 mm. There is a negative sonographic Cook''s sign. There is no pericholecystic fluid. There are no gallstones. Common Bile Duct (C.B.D.): The common bile duct measures 4.0 mm. Pancreas: Normal size of the head, body and tail of the pancreas. There is normal echogenicity of the pancreas. There is no demonstrated pancreatic mass or cyst. Right Kidney: There is atrophy of the right kidney. The right kidney measures 7.9 cm x 3.1 cm x 2.7 cm. Normal renal cortex. The right cortex measures 1.1 cm. There is no demonstrated renal mass or cyst. There is no right hydronephrosis. US/Gallbladder IMPRESSION: Right renal atrophy. Electronically Signed: Jerel Churchill, at 9:17 EST , Service support ,
== END ==
PROVIDERS: PCP Family Medicine; Referring Provider Surgery; Visit Provider Surgery
DX: K80.20 Calculus of gallbladder without cholecystitis without obstruction (principal)
CPT/HCPCS: 76705

== ENCOUNTER → 2019-09-15 13:25 | Outpatient (CLI) | payer MEDICARE, OTHER, SELFPAY ==
[2019-09-08 12:43] VITALS: BMI 23.1
[2019-09-15 13:39] LABS: Absolute Lymphocyte Count 1.11 X10^3/uL (0.83-4.51); Basophil# 0.04 X10^3/uL; Basophil% 0.7 % (0-1); Eosinophils% 3.5 % (0-5); Hematocrit 47.4 % (37-47); Lymphocyte # 1.11 X10^3/ul (4.0); Lymphocyte % 19.3 % (19-41); Mean Corp Hgb Conc 31.6 g/dL (32-36); Mean Corpuscular Hgb 31.9 pg (27.0-32.0); Mean Corpuscular Volume 100.9 fL (81-99); Mean Platelet Vol. 10.4 fl (6.2-12.0); Monocyte# 0.41 X10^3/uL; Monocyte% 7.1 % (0-10); NRBC Flagged by Analyzer 0 % (0-5); Neutrophil # 3.96 X10^3/uL (2.7-7.7); Neutrophil % 68.9 % (47-70); Platelet Count 241 K/mm3 (150-450); RBC Distribution Width CV 13.7 % (11.6-14.6); RBC Distribution Width SD 51.6 fl (35.1-43.9); White Blood Count 5.8 K/mm3 (4.4-11.0)
[2019-09-15 13:55] LABS: ALB/GLOB Ratio 0.9 RATIO (0.9-2.4); AST(SGOT) 14 U/L (15-37); Alanine Aminotransfer ALT/SGPT 18 U/L (13-56); Albumin, Serum 3.5 g/dL (3.2-5.0); Alkaline Phosphatase 139 U/L (45-117); Anion Gap 3 (5-15); BUN 26 mg/dL (7-18); Calcium,Total 10.4 mg/dL (8.5-10.1); Chloride 106 mmol/L (98-107); Creatinine, Serum 1.24 mg/dL (0.55-1.02); EST Glomerular Filtration Rate 44 mL/min (>60); Est Glom Filt Rate - Afr Amer 53 mL/min (>60); Globulin 3.8 g/dL (2.2-4.2); Glucose 141 mg/dL (74-106); Potassium 4.1 mmol/L (3.5-5.1); Protein, Total 7.3 g/dL (6.4-8.2); Sodium Level 141 mmol/L (136-145)
== END ==
PROVIDERS: PCP Family Medicine; Referring Provider Surgery; Visit Provider Surgery
DX: K80.20 Calculus of gallbladder without cholecystitis without obstruction (principal); R74.8 Abnormal levels of other serum enzymes
CPT/HCPCS: 36415; 80053; 85025

== ENCOUNTER 2019-10-09 10:39 | Emergency (ER) | payer MEDICARE, OTHER, SELFPAY ==
[2019-09-15 13:55] VITALS: BMI 23.1
[2019-10-09 10:41] VITALS: BP 153/72; PULSE 63; RESP 17; TEMP 36.8; O2SAT 95; BMI 21.0
--- NOTE | 2019-10-09 11:00 | RAD_ITS ---
STUDY: X-RAY CHEST REASON FOR EXAM: Female, 83 years old. SHORT OF BREATH, WEAKNESS, COPD, STENTS, CABG X 3, HX BREAST CA TECHNIQUE: AP and lateral views of the chest. COMPARISON: Comparison is made with prior examination dated March 08, 2020 and August 24, 2018. FINDINGS: EKG electrodes are seen. Surgical clips are seen in the right axillary region. Mild increase of the left pleural effusion with left basilar atelectasis. Sternal cerclage wires and vascular clips are present from a prior sternotomy and coronary artery bypass graft procedure (CABG). Cardiomegaly. A left-sided dual-chamber pacemaker is seen. Normal mediastinum and davi. Normal visualized pulmonary arteries. Normal visualized aortic arch and descending thoracic aorta. There is a dextroscoliosis of the thoracic spine. [place] clips are seen overlying the humeral head on the right side in keeping with prior rotator cuff surgery. There is no demonstrated abnormality of the visualized soft tissue structures of the upper abdomen. RAD/Chest PA and Lateral IMPRESSION: Mild increase in the left pleural effusion with left basilar atelectasis. Electronically Signed: Jerel Churchill, at 12:14 EST , Service support ,
--- NOTE | 2019-10-09 11:00 | EKG12_ITS ---
Test Reason : DYSRHYTHMIA Blood Pressure : / mmHG Vent. Rate : 060 BPM Atrial Rate : 288 BPM P-R Int : 000 ms QRS Dur : 150 ms QT Int : 460 ms P-R-T Axes : 000 -79 107 degrees QTc Int : 460 ms Ventricular-paced rhythm Biventricular pacemaker detected Abnormal ECG Confirmed by GILBERT YOU, BRENDAN ([id number]), editor city DAISHA CERON ([id number]) on 10/11/2019 9:03:00 AM Referred By: JESSICA Confirmed By:BRENDAN HUNT MD
--- NOTE | 2019-10-09 11:01 | ED.VIS.DYS ---
History of Present Illness Chief Complaint: Shortness of Breath Informant: Patient Onset: - - last night Activity at onset: Sleep Timing: Continuous Quality: Orthopnea Current Severity: Mild Maximum Severity: Severe Worsened by: Lying flat Relieved by: Rest - and sitting up Associated Symptoms: Cough - x 4 days; nonproductive, Rhinorrhea - clear x 4d Chest Pain: Tightness - mild Narrative: Patient feels like her CHF is worse. When she lay down to sleep last night she could not because of dyspnea. She states whenever she would try to lay down to sleep, she would wake up gasping for air within 3 minutes or less and did not sleep the entire night. This is happened before with CHF, she was admitted last month for similar issues. When asked if she has any chest discomfort, she very vaguely indicates that she may be having some very mild tightness associated with this. Timing of that is unknown, but she had no dyspnea until last night. She is nonambulatory and wheelchair-bound mostly due to pains in her knees and ankles due to gout chronically. She has had a runny nose and a nonproductive cough lately without fevers. Saw her PCP who indicated she may have a virus. She was placed on the new prescriptions. Patient and daughter confirmed that her oral fluid intake has not been excessive or even very good lately. She states she has been compliant with her diuretic, and it still causes her to urinate frequently despite her chronic renal disease. She denies any significant chest pain starting before her dyspnea with this. Prior similar symptoms: Yes Recent Illness/Hospitalization: Yes - august hospitalization for CHF. saw PCP several days ago for URI sx. - Past Medical History (1) Atherosclerosis of coronary artery of [place] heart without angina pectoris Status: Chronic (2) Biventricular cardiac pacemaker in situ Status: Chronic Comment: Initial implant 06/27/2009 then upgrade to Bi-V 2015 (3) Chronic renal failure, stage 4 (severe) Status: Chronic (4) Chronic systolic (congestive) heart failure Status: Chronic (5) Essential (primary) hypertension Status: Chronic (6) History of breast cancer Status: Chronic (7) Hyperlipidemia Status: Chronic (8) Ischemic cardiomyopathy Status: Chronic (9) Left bundle branch block (LBBB) Status: Chronic (10) Paroxysmal atrial fibrillation Status: Chronic (11) Sick sinus syndrome Status: Chronic (12) History of coronary artery stent placement Status: Resolved Comment: PCI-BMS-Mid LAD w/ 2.75 x 12 mm Liberte Stent 03/18/2007 (13) COPD (chronic obstructive pulmonary disease) Status: Chronic Past Medical History - Allergies and Home Meds Allergies/Adverse Reactions: Allergies alendronate sodium [From Fosamax] Allergy (Verified 10/09/19 10:40) Other nitrofurantoin [From Macrodantin] Allergy (Verified 10/09/19 10:40) Rash oxycodone [From Percocet] Allergy (Verified 10/09/19 10:40) Other quinapril [From Accupril] Allergy (Verified 10/09/19 10:40) Rash atorvastatin [From Lipitor] Adverse Reaction (Verified 10/09/19 10:40) Pain in joints diclofenac [From Arthrotec 50] Adverse Reaction (Verified 10/09/19 10:40) Upset Stomach misoprostol [From Arthrotec 50] Adverse Reaction (Verified 10/09/19 10:40) Upset Stomach Primary Care Physician: Sudhir Fuller III, MD [Primary Care Provider] - Doctors: [facility] - Cardiology Surgical History: coronary bypass surgery, pacemaker implantation, - - fem artery bypass, Stent. Lives: With Family Smoking Status: Never smoker - Family History Maternal Family History: Family History (Last Reviewed 09/15/19 @ 13:54 by Opal Long) Sister Breast cancer Hypertension Family History: Reports: No pertinent history Paternal Family History: Family History (Last Reviewed 09/15/19 @ 13:54 by Opal Long) Sister Breast cancer Hypertension Family History: Reports: No pertinent history Review of Systems General: Reports: Malaise. Denies: Chills, Fever, Sweats Eyes: Denies: Visual changes - bilaterally, Diplopia ENT: Denies: Bilateral ear pain, Rhinorrhea, Sore throat Cardiovascular: Denies: Chest pain, Palpitations Respiratory: Reports: Dyspnea, Cough, Orthopnea. Denies: Sputum Gastrointestinal: Reports: Abdominal pain - Chronic epigastric discomfort. Denies: Nausea, Vomiting, Diarrhea, Melena, Hematochezia Genitourinary: Denies: Dysuria, Hematuria, Frequency Musculoskeletal: Reports: Arthralgias - Throughout both lower extremities, Swelling - Chronic bilateral lower extremity, no worse than usual. Denies: Neck pain, Back pain Skin: Denies: Rash, Wounds Neurological: Denies: Headache, Weakness, Numbness Physical Exam Vital Signs/Narrative: Vital Signs Temp Pulse Resp BP Pulse Ox 10/09/19 10:41 98.3 F 63 17 153/72 H 95 Inital Vital Signs reviewed: Yes General: Well nourished, Well developed, No Acute Distress Head: Normocephalic, Atraumatic Eyes: Perrl, EOMI ENT: Moist mucous membranes, No rhinorrhea, - - Posterior oropharynx clear Neck: Supple, Nontender, No lymphadenopathy, - - + JVD Cardiovascular: Regular rate, Regular rhythm, No murmurs Respiratory: No distress, Chest nontender, Rhonchi - Bibasilar. Negative for: Rales, Wheezing Abdomen: Soft, Nondistended, Normal bowel sounds, Tender - Mild epigastric only. Negative for: Guarding, Rebound tenderness, Pulsatile mass Back: Nontender, Normal Inspection Extremities: Nontender, Edema - 1+ bilateral lower extremity to mid johnson symmetrically Skin: Normal color, No rash, No Trauma Neurological: Alert, Oriented x3, Cranial nerves II-XII grossly intact, Normal Strength, Normal Sensation Psychological: Normal affect, Normal Mood Diagnostic/Tx/Re-eval - Rhythm Strip Rhythm Strip: Paced Rate: 60 Ectopy: None - EKG Initial EKG Interpretation: No Acute Injury Pattern, Paced - Biventricular pacing and capture Treatment - Dyspnea: Albuterol, - - lasix Repeat Evaluation: Improved - Medical Decision Making Patient's vital signs are stable with no hypoxia even before treatment. She is improved after albuterol aerosol. She was on Lasix 40 mg once daily, we discussed disposition. I feel she is stable for discharge home and outpatient follow-up with medication adjustment in the meantime. She is in agreement. I offered admission but she declines and does not prefer to stay unless she really has to. She does not exert herself, and while at rest here her pulse ox was 95% at triage. Her work-up is consistent with congestive heart failure, and she appears to have a small left pleural effusion. It does not appear large enough to tap on the lateral. She has significant cardiomegaly that is stable. She does not appear to have pneumonia and she has no significant leukocytosis. We gave her a dose of IV Lasix 40 mg, and increased her outpatient dose to 40 mg twice daily for the next 2 or 3 days and then go back to 40 once a day, and follow-up with her doctor or return if worse. She and her daughter are comfortable with that plan. Also, she has a recline double hospital bed at home. She has not tried to sleep with her head elevated which we discussed trying. ED Disposition - Plan for ED Patient: Disposition: Home or Assisted Living Diagnosis: Acute exacerbation of CHF (congestive heart failure) Instructions: CHF, General Referrals: Mark Hernandez MD [STAFF PHYSICIAN] - 3-5 Days if not improving Additional Instructions: Increase your Lasix to 1 pill (40 mg) twice daily for the next 2 or 3 days, and then go back to your regular once daily dosing unless you are still having problems. Follow-up with your glass furnace tender. If you feel you are getting worse on this regimen, return to the ER or if you develop chest pain.
[2019-10-09 11:19] VITALS: PULSE 64; RESP 20
[2019-10-09] MEDS: Albuterol 2.5 MG/3 ML VIAL.NEB. INHALATION (11:19)
[2019-10-09 11:32] LABS: Absolute Lymphocyte Count 0.82 X10^3/uL (0.83-4.51); Absolute Neutrophil Count 4.9 X10^3/uL (2.0-7.7); Basophil# 0.03 X10^3/uL; Basophil% 0.5 % (0-1); Eosinophil# 0.12 X10^3/uL; Eosinophils% 1.9 % (0-5); Hematocrit 41.8 % (37-47); Lymphocyte # 0.82 X10^3/ul (4.0); Lymphocyte % 12.7 % (19-41); Mean Corp Hgb Conc 31.1 g/dL (32-36); Mean Corpuscular Hgb 30.5 pg (27.0-32.0); Mean Corpuscular Volume 98.1 fL (81-99); Mean Platelet Vol. 11.4 fl (6.2-12.0); Monocyte# 0.54 X10^3/uL; Monocyte% 8.3 % (0-10); NRBC Flagged by Analyzer 0 % (0-5); Neutrophil # 4.94 X10^3/uL (2.7-7.7); Neutrophil % 76.3 % (47-70); Platelet Count 159 K/mm3 (150-450); RBC Distribution Width CV 14.1 % (11.6-14.6); RBC Distribution Width SD 51.2 fl (35.1-43.9); Red Blood Count 4.26 M/mm3 (4.2-5.4); White Blood Count 6.5 K/mm3 (4.4-11.0)
[2019-10-09 11:51] LABS: Anion Gap 4 (5-15); BUN 21 mg/dL (7-18); BUN/Creat Ratio 18.6 RATIO (10-20); Calcium,Total 10.4 mg/dL (8.5-10.1); Chloride 109 mmol/L (98-107); Creatinine, Serum 1.13 mg/dL (0.55-1.02); EST Glomerular Filtration Rate 49 mL/min (>60); Est Glom Filt Rate - Afr Amer 59 mL/min (>60); Estimated Creatinine Clearance 30.36 ml/min; Glucose 109 mg/dL (74-106); Potassium 3.9 mmol/L (3.5-5.1); Sodium Level 142 mmol/L (136-145)
[2019-10-09 12:06] LABS: BNP,B-Type NATRIURETIC PEPTIDE 2498.7 pg/mL (0-100)
[2019-10-09] MEDS: Furosemide 40 MG/4 ML Vial IV (12:29)
[2019-10-09 12:39] LABS: International Normalized Ratio 1.2; Prothrombin Time (Protime)PT. 14.9 SECONDS (11.7-14.9)
== END 2019-10-09 12:37 | disposition home or self-care (01) ==
PROVIDERS: Emergency Provider Emergency Medicine; PCP Family Medicine
DX: I13.0 Hypertensive heart and chronic kidney disease with heart failure and stage 1 through stage 4 chronic kidney disease, or unspecified chronic kidney disease (principal); I50.22 Chronic systolic (congestive) heart failure; N18.4 Chronic kidney disease, stage 4 (severe); I25.10 Atherosclerotic heart disease of native coronary artery without angina pectoris; I25.5 Ischemic cardiomyopathy; I44.7 Left bundle-branch block, unspecified; I48.0 Paroxysmal atrial fibrillation; I49.5 Sick sinus syndrome; J44.9 Chronic obstructive pulmonary disease, unspecified; M1A.9XX0 Chronic gout, unspecified, without tophus (tophi); Z85.3 Personal history of malignant neoplasm of breast; Z99.3 Dependence on wheelchair; Z95.1 Presence of aortocoronary bypass graft; Z79.01 Long term (current) use of anticoagulants; Z79.899 Other long term (current) drug therapy
CPT/HCPCS: 71046; 80048; 83880; 84484; 85025; 85610; 87804; 93005; 94640; 96374; 99284; A4216; J1940

== ENCOUNTER 2019-10-24 09:16 | Observation (INO) | payer MEDICARE, OTHER, SELFPAY ==
[2019-10-24] VITALS (14 sets, daily range): BP systolic 147–178; BP diastolic 58–90; PULSE 60–67; RESP 16–22; TEMP 36.2–36.6; O2SAT 91–100; BMI 22.9; BMI 22.0; BMI 22.1
--- NOTE | 2019-10-24 09:34 | EKG12_ITS ---
Test Reason : CP Blood Pressure : / mmHG Vent. Rate : 062 BPM Atrial Rate : 062 BPM P-R Int : 400 ms QRS Dur : 158 ms QT Int : 480 ms P-R-T Axes : 000 -80 103 degrees QTc Int : 487 ms Atrial-sensed ventricular-paced rhythm with prolonged AV conduction with occasional Premature ventric ular complexes Biventricular pacemaker detected Abnormal ECG Confirmed by NILS LANDEROS ([id number]), editor news TERI WANG ([id number]) on 10/25/2019 2:25:27 PM Referred By: DELONTE/COLEEN Confirmed By:NILS LANDEROS
--- NOTE | 2019-10-24 09:35 | ED.VIS.GEN ---
History of Present Illness Chief Complaint: General Illness Detail of Chief Complaint: Multiple symptoms Informant: Patient, Family, Significant Other Onset: Today Context: Sudden Onset Timing: Continuous Quality: Nausea, vomiting, dizziness, shortness of breath abdominal pain Location: Generalized abdominal pain with distention Current Severity: Mild Maximum Severity: Moderate Worsened by: Vomiting Relieved by: Nothing Associated Symptoms: Diarrhea with mucus and reports dizziness Narrative: Patient is an elderly woman with multiple medical problems who presents with not feeling well. Symptoms started last evening according to daughter. No one else is ill that ate what the patient ate. She has vomited multiple times. She reports diarrhea with mucus. She denies blood. Daughter states emesis was green-yellow in color. Patient denies history of bowel obstruction. She does have history of congestive heart failure. She has chronic swelling of her lower extremities. She has 2 pillow orthopnea. She reports the dizziness is worse with her eyes open and head movement. She does have history of paroxysmal benign positional vertigo. There is no complaint of change in voice or speech. There is no difficulty swallowing. She denies paresthesia, anesthesia motors upper or lower extremity. 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 (10) Paroxysmal atrial fibrillation Status: Chronic (11) Sick sinus syndrome Status: Chronic (12) H/O coronary artery bypass surgery Status: Resolved Comment: CABG x 3 [facility]-LAD, SVG-OM1, SVG-Distal RCA at its bifurcation 07/29/2009 Past Medical History - Allergies and Home Meds Allergies/Adverse Reactions: Allergies alendronate sodium [From Fosamax] Allergy (Verified 10/24/19 09:29) Other nitrofurantoin [From Macrodantin] Allergy (Verified 10/24/19 09:29) Rash oxycodone [From Percocet] Allergy (Verified 10/24/19 09:29) Other quinapril [From Accupril] Allergy (Verified 10/24/19 09:29) Rash atorvastatin [From Lipitor] Adverse Reaction (Verified 10/24/19 09:29) Pain in joints diclofenac [From Arthrotec 50] Adverse Reaction (Verified 10/24/19 09:29) Upset Stomach misoprostol [From Arthrotec 50] Adverse Reaction (Verified 10/24/19 09:29) Upset Stomach Primary Care Physician: Sudihr Fuller III, MD [Primary Care Provider] - Prior records reviewed: Yes Surgical History: coronary bypass surgery, pacemaker implantation, - - fem artery bypass, Stent. Lives: Spouse/ Significant Other, With Family Smoking Status: Never smoker Alcohol: None Drugs: None - Family History Maternal Family History: Family History (Last Reviewed 09/15/19 @ 13:54 by Opal Long) Sister Breast cancer Hypertension Family History: Reports: No pertinent history Paternal Family History: Family History (Last Reviewed 09/15/19 @ 13:54 by Opal Long) Sister Breast cancer Hypertension Family History: Reports: No pertinent history Review of Systems General: Reports: Malaise. Denies: Chills, Fever, Subjective, Sweats Eyes: Denies: Visual changes - bilaterally, Blurred Vision - bilaterally ENT: Denies: Bilateral ear pain, Rhinorrhea, Sore throat Cardiovascular: Denies: Chest pain, Palpitations Respiratory: Reports: Dyspnea. Denies: Cough, Sputum, Dyspnea on exertion Gastrointestinal: Reports: Abdominal pain, Nausea, Vomiting, Diarrhea. Denies: Constipation, Melena, Hematochezia Genitourinary: Denies: Dysuria, Hematuria, Frequency Musculoskeletal: Reports: Swelling. Denies: Myalgias, Arthralgias, Neck pain, Back pain, Extremity Pain Skin: Denies: Rash, Wounds Neurological: Reports: Weakness. Denies: Headache, Parasthesia, Numbness Psych: Denies: Depression Hematologic: Denies: Easy bruising, Easy bleeding Allergy: Denies: Uticaria, Swelling of the mouth Physical Exam Vital Signs/Narrative: Vital Signs Temp Pulse Resp BP Pulse Ox 10/24/19 09:18 97.1 F L 61 16 178/90 H 95 Inital Vital Signs reviewed: Yes General: Cachectic, Acute Distress Head: Normocephalic, Atraumatic Eyes: Perrl, EOMI. Negative for: Pale conjunctiva, Scleral icterus ENT: No rhinorrhea, TM's clear, Dry mucous membranes Neck: Supple, Nontender, No lymphadenopathy Cardiovascular: Regular rhythm, No murmurs, Normal S1, Normal S2 Respiratory: No distress, CTA bilaterally, Chest nontender Abdomen: Soft, No masses, Tender, Guarding. Negative for: Nontender, Nondistended, Normal bowel sounds, Rebound tenderness, Hyperactive bowel sounds, Hypoactive bowel sounds, Hepatomegaly, Splenomegaly, Mass Rectal: Deferred Back: Nontender, Normal Inspection Extremities: Nontender, Edema Skin: Pallor. Negative for: Normal color, Cyanosis, Diaphoresis, Jaundice, No Trauma Neurological: Oriented x3, Cranial nerves II-XII grossly intact, Normal Strength, Normal Sensation, Normal DTR. Negative for: Alert Psychological: Normal affect Diagnostic/Tx/Re-eval Impressions Chest X-Ray 10/24/19 09:38 IMPRESSION: Hyperinflation. Increased markings at the lung bases suggestive of bibasilar scarring. Electronically Signed: Jerel Churchill, at 10:01 EST , Service support , 10/24/19 09:38 Chest 1 View (Portable) [RAD] Stat Laboratory Results 10/24/19 10/24/19 10/24/19 09:35 09:35 13:01 WBC 7.3 RBC 4.26 Hgb 13.6 Hct 41.9 MCV 98.4 MCH 31.9 MCHC 32.5 RDW Std Deviation 53.5 H RDW Coeff of Zainab 14.9 H Plt Count 224 MPV 11.4 Immature Gran % (Auto) 0.300 Neut % (Auto) 85.3 H Lymph % (Auto) 9.4 L [place] % (Auto) 3.3 Eos % (Auto) 1.4 Baso % (Auto) 0.3 Absolute Neuts (auto) 6.2 Absolute Lymphs (auto) 0.68 L Nucleated RBC % 0 Platelet Estimate ADEQUATE Sodium 142 Potassium 4.1 Chloride 106 Carbon Dioxide 30.0 Anion Gap 6 BUN 26 H Creatinine 1.28 H Estim Creat Clear Calc 26.80 Est GFR (MDRD) Af Amer 51 L Est GFR (MDRD) Non-Af 42 L BUN/Creatinine Ratio 20.3 H Glucose 189 H Calcium 10.2 H Urine Color Yellow Urine Clarity Clear Urine pH 5.0 Ur Specific [place] 1.020 Urine Protein 30 H Urine Glucose (UA) Normal Urine Ketones 5 H Urine Occult Blood 250 H Urine Nitrite Negative Urine Bilirubin Negative Urine Urobilinogen Normal Ur Leukocyte Esterase Negative Urine RBC 10-25 SEEN Urine WBC 0 SEEN Ur Squamous Epith Cells 0-5 SEEN Urine Bacteria RARE Urine Mucus 0 SEEN Alsys reveals microscopic hematuria. There is no evidence infection. Basic metabolic panel reveals slight elevation of BUN and creatinine. This is no different than baseline. CBC, H&H are unremarkable. Impressions Chest X-Ray 10/24/19 09:38 IMPRESSION: Hyperinflation. Increased markings at the lung bases suggestive of bibasilar scarring. Electronically Signed: Jerel Kerline, at 10:01 EST , Service support , 10/24/19 09:38 Chest 1 View (Portable) [RAD] Stat 10/24/19 15:25 CT Head [Brain/Head without Contrast] [CT] Stat Laboratory Results 10/24/19 10/24/19 10/24/19 09:35 09:35 13:01 WBC 7.3 RBC 4.26 Hgb 13.6 Hct 41.9 MCV 98.4 MCH 31.9 MCHC 32.5 RDW Std Deviation 53.5 H RDW Coeff of Zainab 14.9 H Plt Count 224 MPV 11.4 Immature Gran % (Auto) 0.300 Neut % (Auto) 85.3 H Lymph % (Auto) 9.4 L [place] % (Auto) 3.3 Eos % (Auto) 1.4 Baso % (Auto) 0.3 Absolute Neuts (auto) 6.2 Absolute Lymphs (auto) 0.68 L Nucleated RBC % 0 Platelet Estimate ADEQUATE Sodium 142 Potassium 4.1 Chloride 106 Carbon Dioxide 30.0 Anion Gap 6 BUN 26 H Creatinine 1.28 H Estim Creat Clear Calc 26.80 Est GFR (MDRD) Af Amer 51 L Est GFR (MDRD) Non-Af 42 L BUN/Creatinine Ratio 20.3 H Glucose 189 H Calcium 10.2 H Urine Color Yellow Urine Clarity Clear Urine pH 5.0 Ur Specific [place] 1.020 Urine Protein 30 H Urine Glucose (UA) Normal Urine Ketones 5 H Urine Occult Blood 250 H Urine Nitrite Negative Urine Bilirubin Negative Urine Urobilinogen Normal Ur Leukocyte Esterase Negative Urine RBC 10-25 SEEN Urine WBC 0 SEEN Ur Squamous Epith Cells 0-5 SEEN Urine Bacteria RARE Urine Mucus 0 SEEN He had a head was reviewed by me. There is no evidence of intracranial bleed. There is no evidence of hydrocephalus. There is no obvious acute stroke. Formal read is pending. Since patient remains somnolent has vertigo with nystagmus that does not fatigue need to rule out central etiology. - Medical Decision Making Patient presents with constellation symptoms. Concerned the nausea vomiting and diarrhea are viral. The dizziness is associated with nausea, vomiting and nystagmus with lateral gaze. Unable to perform [place]-Hallpike maneuver at this time. Patient's constellation symptoms need to evaluate for benign positional vertigo i.e. peripheral versus central, with complaint of shortness of breath and edema will obtain x-ray to assess for congestive heart failure. Because she has abdominal pain with distention and prior surgery may need to obtain abdominal films to evaluate for partial small bowel obstruction. This is less likely in light of the fact the patient has diarrhea. Will obtain electrolytes since she is on diuretic to assess sodium and more importantly potassium. Also to assess renal function and anion gap. Urine does not indicate patient has an infection. Uncertain change in mental status. [place]-Hallpike maneuver was performed. She has some nystagmus noted there is very prominent with head turned to the left. She has symptoms with minimal nystagmus with her head turned to the right. Miesha maneuver was performed. Patient's nystagmus did not fatigue and her nausea did not improve. She still complaines of spinning. Will obtain CT of the head. If the CT of the head reveals no acute abnormality will contact hospitalist for admission. Of note patient did receive Ativan since there is no IV Valium. Patient's symptoms nor nystagmus improved after IV Ativan. ED Disposition - Plan for ED Patient: Disposition: Acute Care Hospital [facility] Diagnosis: Vertigo, Mental status, decreased Referrals: Sudhir Fuller III, MD [Primary Care Provider] -
--- NOTE | 2019-10-24 09:38 | RAD_ITS ---
STUDY: X-RAY CHEST REASON FOR EXAM: Female, 83 years old. CHEST PAIN, SOB/DYSPNEA; -- COPD, CABG, STENTS TECHNIQUE: Single AP portable view of the chest. COMPARISON: Comparison is made with prior study dated October 09, 2019. FINDINGS: EKG electrodes are seen. Surgical clips are seen in the right axillary region. Hyperinflation. Mild increased markings at the lung bases slightly more prominent on the left side suggestive of scarring. There is no demonstrated pleural abnormality. Sternal cerclage wires and vascular clips are present from a prior sternotomy and coronary artery bypass graft procedure (CABG). A left-sided dual-chamber pacemaker is seen. Normal mediastinum and davi. Normal visualized pulmonary arteries. There is atherosclerotic calcification of the aortic arch with tortuosity. Normal visualized thoracic spine. Metallic clips are seen overlying the right humeral head suggestive of prior rotator cuff surgery. There is no demonstrated abnormality of the visualized soft tissue structures of the upper abdomen. RAD/Chest 1 View (Portable) IMPRESSION: Hyperinflation. Increased markings at the lung bases suggestive of bibasilar scarring. Electronically Signed: Jerel Churchill, at 10:01 EST , Service support ,
[2019-10-24 09:54] LABS: Absolute Lymphocyte Count 0.68 X10^3/uL (0.83-4.51); Absolute Neutrophil Count 6.2 X10^3/uL (2.0-7.7); Basophil# 0.02 X10^3/uL; Basophil% 0.3 % (0-1); Eosinophils% 1.4 % (0-5); Hematocrit 41.9 % (37-47); Hemoglobin 13.6 g/dL (12.0-15.0); Lymphocyte # 0.68 X10^3/ul (4.0); Lymphocyte % 9.4 % (19-41); Mean Corp Hgb Conc 32.5 g/dL (32-36); Mean Corpuscular Hgb 31.9 pg (27.0-32.0); Mean Corpuscular Volume 98.4 fL (81-99); Mean Platelet Vol. 11.4 fl (6.2-12.0); Monocyte# 0.24 X10^3/uL; Monocyte% 3.3 % (0-10); NRBC Flagged by Analyzer 0 % (0-5); Neutrophil # 6.21 X10^3/uL (2.7-7.7); Neutrophil % 85.3 % (47-70); POSITIVE MORPHOLOGY YES; Platelet Count 224 K/mm3 (150-450); RBC Distribution Width CV 14.9 % (11.6-14.6); RBC Distribution Width SD 53.5 fl (35.1-43.9); Red Blood Count 4.26 M/mm3 (4.2-5.4); White Blood Count 7.3 K/mm3 (4.4-11.0)
[2019-10-24 09:55] LABS: Differential Indicated SCAN CRITERIA MET
[2019-10-24 10:05] LABS: Anion Gap 6 (5-15); BUN 26 mg/dL (7-18); BUN/Creat Ratio 20.3 RATIO (10-20); Calcium,Total 10.2 mg/dL (8.5-10.1); Chloride 106 mmol/L (98-107); Creatinine, Serum 1.28 mg/dL (0.55-1.02); EST Glomerular Filtration Rate 42 mL/min (>60); Est Glom Filt Rate - Afr Amer 51 mL/min (>60); Glucose 189 mg/dL (74-106); Potassium 4.1 mmol/L (3.5-5.1); Sodium Level 142 mmol/L (136-145)
[2019-10-24] MEDS: LORazepam 2 MG/ML Syringe 0.5 MG IV (10:10)
[2019-10-24] MEDS: Ondansetron 4 MG/2 ML Vial IV (10:10)
[2019-10-24 10:11] LABS: Platelet Estimate ADEQUATE (ADEQ)
--- NOTE | 2019-10-24 11:45 | NURSING ---
PT HAD AN EPISODE OF WIDE SET TACHYCARDIA, DOCTOR MARIBETH MADE AWARE, WILL GO AND REEVAL.
[2019-10-24 13:04] LABS: Mucous, Urine 0 SEEN /hpf (<or=2+); White Blood Cells 0 SEEN /hpf (0-5)
[2019-10-24 13:05] LABS: Color, Urine Yellow (Yellow); Glucose, Dipstick Normal (Normal); Ketone-Dipstick 5 mg/dl (Negative); Leukocyte Esterase-Dipstick Negative /ul (Negative); Nitrite-Dipstick Negative (Negative); Occult Blood-Urine 250 /ul (Negative); Protein-Dipstick 30 mg/dl (Negative); Urine Bilirubin Dipstick Negative (Negative); Urine Clarity Clear (Clear); Urine Urobilinogen Normal (Normal)
[2019-10-24 13:14] LABS: Bacteria RARE /hpf (None Seen); Red Blood Cells-Urine 10-25 SEEN /hpf (0-5); Squamous Epithelial Cells - UA 0-5 SEEN /hpf (5-10)
--- NOTE | 2019-10-24 14:22 | NURSING ---
PT HAD MULTIPLE EPISODES OF DESATURATION AND HAD TO PUT THE PT ON OXYGEN. THE PT WOULD DROP DOWN INTO THE 80'S
--- NOTE | 2019-10-24 15:25 | CT_ITS ---
STUDY: CT BRAIN WITHOUT CONTRAST REASON FOR EXAM: Female, 83 years old. ALTERED MENTAL STATUS, VERTIGO, HX HTN, HEART DZ, BILATERAL BREAST CA RADIATION DOSAGE (If Supplied By Facility): CTDIvol = ( 44.99 ) mGy, DLP = ( 745.49 ) mGycm TECHNIQUE: Transaxial CT imaging of the brain was performed without administration of intravenous contrast material. Individualized dose optimization techniques were used for this CT. COMPARISON: 12/15/2016 FINDINGS: Normal soft tissue structures. Normal calvarium. There is mild cerebral atrophy with widening of the extra-axial spaces and ventricular dilatation. There are areas of decreased attenuation within the white matter tracts of the supratentorial brain, consistent with microvascular disease changes. Normal basal ganglia and thalami. Normal brainstem. Normal cerebellum. There is no intracranial hemorrhage. There are no findings of an acute ischemic infarction. Normal visualized paranasal sinuses. CT/Brain/Head without Contrast IMPRESSION: Chronic involutional changes of the brain. Electronically Signed: Tristen Mars MD at 16:22 EST Tel , Service support ,
--- NOTE | 2019-10-24 16:53 | PCM.HP.STD ---
<Karin Bates - Last Filed: 10/24/19 17:29> Problem List (1) COPD (chronic obstructive pulmonary disease) Status: Chronic (2) Vertigo Status: Chronic (3) Atherosclerosis of coronary artery of [place] heart without angina pectoris Status: Chronic (4) H/O coronary artery bypass surgery Status: Resolved Comment: CABG x 3 COX-LAD, SVG-OM1, SVG-Distal RCA at its bifurcation 07/29/2009 (5) History of coronary artery stent placement Status: Resolved Comment: PCI-BMS-Mid LAD w/ 2.75 x 12 mm Liberte Stent 03/18/2007 (6) Biventricular cardiac pacemaker in situ Status: Chronic Comment: Initial implant 06/27/2009 then upgrade to Bi-V 2015 (7) Paroxysmal atrial fibrillation Status: Chronic (8) Ischemic cardiomyopathy Status: Chronic (9) Sick sinus syndrome Status: Chronic (10) Left bundle branch block (LBBB) Status: Chronic (11) Chronic systolic (congestive) heart failure Status: Chronic (12) Essential (primary) hypertension Status: Chronic (13) Hyperlipidemia Status: Chronic (14) Chronic renal failure, stage 4 (severe) Status: Chronic (15) History of breast cancer Status: Chronic (16) 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 The patient is a 83 year old F who presents emergency room with multiple complaints. Patient reports last evening she developed generalized abdominal pain which was sharp and cramping in nature as well as nausea, vomiting. She reports one episode of diarrhea. She reports she slid off the bed last night. at bedside states patient's speech has been mumbled for the past 12 to 20 hours. Patient also reports blurred vision and double vision. She denies other neuro symptoms or focal deficits. She denies recent illness. She denies urinary symptoms although reports she has had increased urination due to Lasix being increased within the past few days. She states her lasix was increased due to ankle swelling. She has a past medical history of CAD with history of CABG, PVD, hypertension, hyperlipidemia, sick sinus syndrome status post pacemaker placement, paroxysmal atrial fibrillation, chronic COPD, hypothyroidism with history of parathyroid mass, history of breast cancer status post left mastectomy, chronic kidney disease stage IV, chronic systolic CHF, gout, history of upper GI bleed secondary to peptic ulcer disease with duodenal ulcer, anxiety disorder. Past Medical History Past Medical History (Chronic Problems): Chronic Problems (Last Reviewed 09/15/19 @ 13:54 by Opal Long) COPD (chronic obstructive pulmonary disease) (Chronic) Vertigo (Chronic) Atherosclerosis of coronary artery of 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 heart without angina pectoris (Chronic) I25.10 Biventricular cardiac pacemaker in situ (Chronic) Onset Date: 12/10/15 Z95.0 Initial implant 06/27/2009 then upgrade to Bi-V 2016 Paroxysmal atrial fibrillation (Chronic) I48.0 Ischemic cardiomyopathy (Chronic) I25.5 Sick sinus syndrome (Chronic) I49.5 Left bundle branch block (LBBB) (Chronic) I44.7 Chronic systolic (congestive) heart failure (Chronic) I50.22 Essential (primary) hypertension (Chronic) I10 Hyperlipidemia (Chronic) E78.5 Chronic renal failure, stage 4 (severe) (Chronic) N18.4 History of breast cancer (Chronic) Z85.3 Anxiety F41.9 COPD (chronic obstructive pulmonary disease) J44.9 COPD (chronic obstructive pulmonary disease) J44.9 Goiter E04.9 Gout M10.9 Hyperparathyroidism E21.3 she has a parathyroid mass and she also has CRF stage 4 Hyperparathyroidism E21.3 Hyperuricemia E79.0 Hypothyroidism E03.9 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 Osteoporosis M81.0 Parathyroid adenoma D35.1 Peptic ulcer disease K27.9 Peripheral vascular disease I73.9 Vision changes H53.9 Acute upper GI bleed K92.2 PUD with duodenal ulcer Allergies alendronate sodium [From Fosamax] Allergy (Verified 10/24/19 09:29) Other nitrofurantoin [From Macrodantin] Allergy (Verified 10/24/19 09:29) Rash oxycodone [From Percocet] Allergy (Verified 10/24/19 09:29) Other quinapril [From Accupril] Allergy (Verified 10/24/19 09:29) Rash atorvastatin [From Lipitor] Adverse Reaction (Verified 10/24/19 09:29) Pain in joints diclofenac [From Arthrotec 50] Adverse Reaction (Verified 10/24/19 09:29) Upset Stomach misoprostol [From Arthrotec 50] Adverse Reaction (Verified 10/24/19 09:29) Upset Stomach Home Medications: Ambulatory Orders Medication Instructions Recorded Gabapentin [Neurontin] 100 mg PO BIDCM #60 cap 09/02/18 allopurinol 100 mg tablet 100 mg PO DAILY 06/15/19 levothyroxine 100 mcg tablet 100 mcg PO DAILY 06/15/19 carvedilol 25 mg tablet 25 mg PO BID tab 08/18/19 nizatidine 150 mg capsule 150 mg PO BID cap 08/18/19 furosemide 40 mg tablet 40 mg PO DAILY 09/07/19 Amlodipine Besylate [Norvasc] 10 mg PO DAILY 09/08/19 omeprazole 20 mg capsule,delayed 20 mg PO DAILY #60 cap 09/15/19 release warfarin 4 mg tablet 4 mg PO DAILY #90 tab 09/18/19 Cyanocobalamin (Vitamin B-12) 1,000 mcg PO DAILY 10/24/19 [B-12] Meclizine HCl [Antivert] 12.5 mg PO TID PRN PRN 10/24/19 Surgical History: Surgical History (Last Reviewed 10/24/19 @ 17:11 by MARINA Carcamo) H/O coronary artery bypass surgery (Resolved) Onset Date: 07/29/09 Z95.1 CABG x 3 COX-LAD, SVG-OM1, SVG-Distal RCA at its bifurcation 07/29/2009 History of coronary artery stent placement (Resolved) Onset Date: 03/18/07 Z95.5 PCI-BMS-Mid LAD w/ 2.75 x 12 mm Liberte Stent 03/18/2007 History of angioplasty of peripheral vessel Z98.62 History of appendectomy Z90.49 History of hysterectomy Z90.710 History of left heart catheterization Onset Date: 06/2012 Z98.890 History of left mastectomy Z90.12 History of repair of rotator cuff Z98.890 shoulder joint surgery Surgical History: coronary bypass surgery, pacemaker implantation, - - fem artery bypass, Stent. 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 Paternal Family History: Family History (Last Reviewed 10/24/19 @ 17:11 by MARINA Carcamo) Sister Breast cancer Hypertension History Items: - - Denies known paternal medical history including cardiac history. Review of Systems Constitutional: Reports: Malaise, Fatigue. Denies: Chills HEENT: Denies: Head Aches, Sinus Congestion, Sinus Drainage Cardiovascular: Reports: Edema - Ankle. Denies: Chest Pain, Palpitations Respiratory: Denies: Cough, Shortness of breath at rest, Sputum production Gastrointestinal: Reports: Abdominal Pain, Diarrhea, Nausea, Vomiting Genitourinary: Denies: Dysuria Musculoskeletal: Denies: Joint Pain, Joint Tenderness Skin: Denies: Rash, Wounds Neurological: Reports: Blurred vision, Double vision, Slurred speech. Denies: Focal weakness, Numbness, Tingling Psychiatric: Reports: Anxiety Hematologic/ Lymphatic: Denies: Easy Bruising, Easy Bleeding VTE Information - Inpt Only VTE Present on Admission: No VTE Mechan Device Prophylaxis: None VTE Pharm Prophylaxis ordered?: Yes - Physical Exam Vitals/I&O's: Vital Signs Temp Pulse Resp BP Pulse Ox 97.9 F 62 16 163/80 H 99 10/24/19 10:06 10/24/19 13:00 10/24/19 13:00 10/24/19 13:00 10/24/19 13:00 Oxygen Flow Rate (L/min) 2 Oxygen Delivery Method Nasal Cannula Weight: 125 lb 6.4 oz Body Mass Index (BMI) 22.9 General: Alert, Oriented x3, Cooperative HEENT: Atraumatic, PERRLA, EOMI, Normocephalic Oral: Dry Mucosa Neck: Supple, No JVD, Negative Carotid Bruits Lungs: Clear to auscultation, Diminished Cardiovascular: Regular rate, Regular Rhythm, Normal S1, Normal S2, No murmurs Abdomen: Bowel Sounds Present, Soft, Non-Distended, Tender Extremities: No clubbing, No cyanosis, Capillary Refill Less than 3 Seconds, Edema - +1 lower extremity Skin: No rashes, No breakdown Musculoskeletal: No Tenderness to Palpation of Joints or Extremities Neurological: Cranial nerves II-XII grossly intact, - - Double vision Psych/Mental Status: Normal Affect, Appropriate Laboratory Results 10/24/19 09:35: WBC 7.3, RBC 4.26, Hgb 13.6, Hct 41.9, MCV 98.4, MCH 31.9, MCHC 32.5, RDW Std Deviation 53.5 H, RDW Coeff of Zainab 14.9 H, Plt Count 224, MPV 11.4, Immature Gran % (Auto) 0.300, Neut % (Auto) 85.3 H, Lymph % (Auto) 9.4 L, [place] % (Auto) 3.3, Eos % (Auto) 1.4, Baso % (Auto) 0.3, Absolute Neuts (auto) 6.2, Absolute Lymphs (auto) 0.68 L, Nucleated RBC % 0, Platelet Estimate ADEQUATE 10/24/19 09:35: Sodium 142, Potassium 4.1, Chloride 106, Carbon Dioxide 30.0, Anion Gap 6, BUN 26 H, Creatinine 1.28 H, Estim Creat Clear Calc 26.80, Est GFR (MDRD) Af Amer 51 L, Est GFR (MDRD) Non-Af 42 L, BUN/Creatinine Ratio 20.3 H, Glucose 189 H, Calcium 10.2 H 10/24/19 13:01: Urine Color Yellow, Urine Clarity Clear, Urine pH 5.0, Ur Specific [place] 1.020, Urine Protein 30 H, Urine Glucose (UA) Normal, Urine Ketones 5 H, Urine Occult Blood 250 H, Urine Nitrite Negative, Urine Bilirubin Negative, Urine Urobilinogen Normal, Ur Leukocyte Esterase Negative, Urine RBC 10-25 SEEN, Urine WBC 0 SEEN, Ur Squamous Epith Cells 0-5 SEEN, Urine Bacteria RARE, Urine Mucus 0 SEEN Assessment/Plan All Active Problems (Last Reviewed 09/15/19 @ 13:54 by Opal Long) Mental status, decreased (Acute) H/O coronary artery bypass surgery (Resolved 07/29/09) History of coronary artery stent placement (Resolved 03/18/07) Acute blood loss anemia (Resolved) Acute gouty arthritis (Resolved) Acute on chronic kidney failure (Resolved) Acute systolic (congestive) heart failure (Resolved) CAP (community acquired pneumonia) (Resolved) CHF exacerbation (Resolved) Severe sepsis (Resolved) Cellulitis (Ruled-out) 1. Blurred vision, slurred speech-rule out CVA. Brain CT without acute process. [facility]. Obtain MRI of brain. MRA of head and neck. Aspirin, statin. PT/OT/ST. Recent echo August 2019. Will not repeat unless MRI abnormal. Check hemoglobin A1c and fasting lipid panel. 2. Abdominal pain-history of upper GI bleed secondary to peptic ulcer disease with duodenal ulcer-Patient was recently seen by Dr. Hawkins 09/15/[address] of abdomen 09/08/19 showed sludge and possible gallstones. Repeat GB ultrasound 09/14/19 completed which showed no stones or sludge in gallbladder. Given patient's history of ulcers and occasional NSAID use, patient was treated as peptic ulcer disease. On nizatidine and omeprazole. Given ongoing complaints of abdominal pain and bloating, check CMP and KUB. 3. CAD with history of CABG-continue beta-shruthi. Not on aspirin, statin. 4. PVD-history of ischemic left foot status post left lower extremity arteriogram/angioplasty. Not on aspirin, statin. 5. Hypertension-patient on amlodipine, carvedilol, Lasix. 6. Hyperlipidemia-not on statin. 7. Sick sinus syndrome status post pacemaker placement 8. Paroxysmal atrial fibrillation-on anticoagulation with Coumadin. Continue carvedilol. Check INR. 9. Chronic COPD-no acute exacerbation. As needed albuterol aerosol. 10. Hypothyroidism with history of parathyroid mass 11. History of breast cancer status post left mastectomy 12. Chronic kidney disease stage III-at baseline, trend BMP. 13. Chronic systolic CHF-echocardiogram August 2019 showed EF 37%, mild to moderate mitral valve insufficiency, moderate pulmonary hypertension, moderate tricuspid valve insufficiency. Continue home Lasix regimen. 14. Gout- continue allopurinol. DVT prophylaxis-Coumadin This patient was seen by MARINA Carcamo under the supervision of Dr. Gallo. <Moreno Gallo F - Last Filed: 10/24/19 21:10> History of Present Illness The patient is a 83 year old F [] Past Medical History Medical History: Medical History (Last Reviewed 09/15/19 @ 13:54 by Opal Long) Atherosclerosis of coronary artery of [place] heart without angina pectoris (Chronic) I25.10 Biventricular cardiac pacemaker in situ (Chronic) Onset Date: 12/10/15 Z95.0 Initial implant 06/27/2009 then upgrade to Bi-V 2015 Paroxysmal atrial fibrillation (Chronic) I48.0 Ischemic cardiomyopathy (Chronic) I25.5 Sick sinus syndrome (Chronic) I49.5 Left bundle branch block (LBBB) (Chronic) I44.7 Chronic systolic (congestive) heart failure (Chronic) I50.22 Essential (primary) hypertension (Chronic) I10 Hyperlipidemia (Chronic) E78.5 Chronic renal failure, stage 4 (severe) (Chronic) N18.4 History of breast cancer (Chronic) Z85.3 Anxiety F41.9 COPD (chronic obstructive pulmonary disease) J44.9 COPD (chronic obstructive pulmonary disease) J44.9 Goiter E04.9 Gout M10.9 Hyperparathyroidism E21.3 she has a parathyroid mass and she also has CRF stage 4 Hyperparathyroidism E21.3 Hyperuricemia E79.0 Hypothyroidism E03.9 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 Osteoporosis M81.0 Parathyroid adenoma D35.1 Peptic ulcer disease K27.9 Peripheral vascular disease I73.9 Vision changes H53.9 Acute upper GI bleed K92.2 PUD with duodenal ulcer Allergies alendronate sodium [From Fosamax] Allergy (Verified 10/24/19 09:29) Other nitrofurantoin [From Macrodantin] Allergy (Verified 10/24/19 09:29) Rash oxycodone [From Percocet] Allergy (Verified 10/24/19 18:09) It was too strong quinapril [From Accupril] Allergy (Verified 10/24/19 09:29) Rash atorvastatin [From Lipitor] Adverse Reaction (Verified 10/24/19 09:29) Pain in joints diclofenac [From Arthrotec 50] Adverse Reaction (Verified 10/24/19 09:29) Upset Stomach misoprostol [From Arthrotec 50] Adverse Reaction (Verified 10/24/19 09:29) Upset Stomach Surgical History: Surgical History (Last Reviewed 10/24/19 @ 17:11 by MARINA Carcamo) H/O coronary artery bypass surgery (Resolved) Onset Date: 07/29/09 Z95.1 CABG x 3 COX-LAD, SVG-OM1, SVG-Distal RCA at its bifurcation 07/29/2009 History of coronary artery stent placement (Resolved) Onset Date: 03/18/07 Z95.5 PCI-BMS-Mid LAD w/ 2.75 x 12 mm Liberte Stent 03/18/2007 History of angioplasty of peripheral vessel Z98.62 History of appendectomy Z90.49 History of hysterectomy Z90.710 History of left heart catheterization Onset Date: 06/2012 Z98.890 History of left mastectomy Z90.12 History of repair of rotator cuff Z98.890 shoulder joint surgery - *Family History Maternal Family History: Family History (Last Reviewed 10/24/19 @ 17:11 by MARINA Carcamo) Sister Breast cancer Hypertension Paternal Family History: Family History (Last Reviewed 10/24/19 @ 17:11 by MARINA Carcamo) Sister Breast cancer Hypertension - Physical Exam Vitals/I&O's: Vital Signs Temp Pulse Resp BP Pulse Ox 97.6 F L 61 20 H 150/64 H 96 10/24/19 18:46 10/24/19 18:46 10/24/19 18:46 10/24/19 18:46 10/24/19 18:46 Oxygen Flow Rate (L/min) 2 Oxygen Delivery Method Nasal Cannula Weight: 120 lb 9.486 oz Body Mass Index (BMI) 22.0 Laboratory Results 10/24/19 09:35: WBC 7.3, RBC 4.26, Hgb 13.6, Hct 41.9, MCV 98.4, MCH 31.9, MCHC 32.5, RDW Std Deviation 53.5 H, RDW Coeff of Zainab 14.9 H, Plt Count 224, MPV 11.4, Immature Gran % (Auto) 0.300, Neut % (Auto) 85.3 H, Lymph % (Auto) 9.4 L, [place] % (Auto) 3.3, Eos % (Auto) 1.4, Baso % (Auto) 0.3, Absolute Neuts (auto) 6.2, Absolute Lymphs (auto) 0.68 L, Nucleated RBC % 0, Platelet Estimate ADEQUATE 10/24/19 09:35: Sodium 142, Potassium 4.1, Chloride 106, Carbon Dioxide 30.0, Anion Gap 6, BUN 26 H, Creatinine 1.28 H, Estim Creat Clear Calc 26.80, Est GFR (MDRD) Af Amer 51 L, Est GFR (MDRD) Non-Af 42 L, BUN/Creatinine Ratio 20.3 H, Glucose 189 H, Calcium 10.2 H 10/24/19 09:35: Hemoglobin A1c 6.3 10/24/19 13:01: Urine Color Yellow, Urine Clarity Clear, Urine pH 5.0, Ur Specific [place] 1.020, Urine Protein 30 H, Urine Glucose (UA) Normal, Urine Ketones 5 H, Urine Occult Blood 250 H, Urine Nitrite Negative, Urine Bilirubin Negative, Urine Urobilinogen Normal, Ur Leukocyte Esterase Negative, Urine RBC 10-25 SEEN, Urine WBC 0 SEEN, Ur Squamous Epith Cells 0-5 SEEN, Urine Bacteria RARE, Urine Mucus 0 SEEN 10/24/19 18:00: Sodium 142, Potassium 4.3, Chloride 109 H, Carbon Dioxide 27.0, Anion Gap 6, BUN 24 H, Creatinine 1.20 H, Estim Creat Clear Calc 28.59, Est GFR (MDRD) Af Amer 55 L, Est GFR (MDRD) Non-Af 46 L, BUN/Creatinine Ratio 20.0, Glucose 108 H, Calcium 10.0, Magnesium 1.9, Total Bilirubin 1.60 H, AST 13 L, ALT 19, Alkaline Phosphatase 130 H, Troponin I 0.142 H, Total Protein 6.3 L, Albumin 3.0 L, Globulin 3.3, Albumin/Globulin Ratio 0.9 10/24/19 18:00: PT 14.6, INR 1.2 Current Medications Acetaminophen (Tylenol) 650 mg PO Q6H PRN PRN PRN Reason: Pain Score 1-10/Temp > 100.7 F Albuterol Sulfate (Ventolin Aerosols) 2.5 mg INHALATION Q2H PRN PRN PRN Reason: SOB/Wheezing Allopurinol (Zyloprim) 100 mg PO DAILY [facility] Aspirin (Aspirin, Baby) 81 mg PO DAILY@0800 [facility] Carvedilol (Coreg) 25 mg PO BID [facility] Docusate Sodium (Colace) 100 mg PO BID PRN PRN PRN Reason: Constipation Enoxaparin Sodium (Lovenox) 60 mg SC Q12 [facility] Famotidine (Pepcid) 20 mg PO DAILY [facility] Furosemide (Lasix) 40 mg PO DAILY [facility] Levothyroxine Sodium (Synthroid) 100 mcg PO DAILY@0600 [facility] Ondansetron HCl (Zofran) 4 mg IV Q8H PRN PRN PRN Reason: NAUSEA/VOMITING Pantoprazole Sodium (Protonix) 20 mg PO DAILY [facility] Sodium Chloride () 10 - 40 ml IV UD PRN PRN Reason: SALINE FLUSH Warfarin Sodium (Coumadin (Pbkc)) 4 mg PO DAILY@1700 [facility] Last Admin: 10/24/19 18:59 Dose: Not Given Documented by: Code Visit Addendum: Dr. Gallo I personally examined the patient and reviewed the chart. I agree with the above. 83-year-old female presents to the hospital with mumbled speech and dizziness as well as abdominal pain that started last night. The mumbled speech per the has been going on for about 12 to 20 hours. She is supposed to be on Coumadin for A. fib however an INR was obtained and her INR was 1.2. She was started on therapeutic Lovenox and will be continued on her Coumadin once she is able to tolerate p.o. She did fail her dysphasia screen and unfortunately cannot obtain an MRI given the pacemaker that she has in place. She was also started on aspirin given her significant cardiac history with CABG as well as a stent. Her troponin initially was obtained at 0.142, this will be trended, she had an echo on 09/06/2019 with an EF of 37% and moderate pulmonary hypertension. Right now the concern is for possible posterior stroke with her significant vertigo though vertigo is a chronic finding for her. To resume her home medications, with the addition of an aspirin, she is allergic to statins, and her renal function is at baseline for her to continue with her Lasix as well She has a slight edema in her lower extremities. OBSV E&M: 13422 Initial observation care L3
--- NOTE | 2019-10-24 17:40 | RAD_ITS ---
STUDY: X-RAY - ABDOMEN/PELVIS REASON FOR EXAM: Female, 83 years old. Abdominal pain TECHNIQUE: Frontal view of the abdomen COMPARISON: None. FINDINGS: There is no bowel obstruction. There is air and stool to the level of the rectum. The visualized osseous structures are within normal limits. RAD/Abdomen Single View (Portable) IMPRESSION: No bowel obstruction. Electronically Signed: Randell Delcid, at 19:13 EST Tel , Service support ,
[2019-10-24 18:25] LABS: International Normalized Ratio 1.2; Prothrombin Time (Protime)PT. 14.6 SECONDS (11.7-14.9)
[2019-10-24 18:35] LABS: ALB/GLOB Ratio 0.9 RATIO (0.9-2.4); AST(SGOT) 13 U/L (15-37); Alanine Aminotransfer ALT/SGPT 19 U/L (13-56); Alkaline Phosphatase 130 U/L (45-117); Anion Gap 6 (5-15); BUN 24 mg/dL (7-18); Chloride 109 mmol/L (98-107); EST Glomerular Filtration Rate 46 mL/min (>60); Est Glom Filt Rate - Afr Amer 55 mL/min (>60); Estimated Creatinine Clearance 28.59 ml/min; Globulin 3.3 g/dL (2.2-4.2); Glucose 108 mg/dL (74-106); Magnesium 1.9 mg/dL (1.6-2.6); Potassium 4.3 mmol/L (3.5-5.1); Protein, Total 6.3 g/dL (6.4-8.2); Sodium Level 142 mmol/L (136-145)
[2019-10-24 18:45] LABS: Hemoglobin A1c 6.3 % (4.2-6.3)
[2019-10-24] MEDS: Enoxaparin 60 MG/0.6 ML Syringe SC (22:27)
[2019-10-25] VITALS (8 sets, daily range): BP systolic 155–166; BP diastolic 70–83; PULSE 56–91; RESP 18–26; TEMP 36.4–36.9; O2SAT 97–99; BMI 22.0
[2019-10-25 04:41] LABS: Anion Gap 8 (5-15); BUN 25 mg/dL (7-18); BUN/Creat Ratio 21.4 RATIO (10-20); Calcium,Total 9.6 mg/dL (8.5-10.1); Chloride 108 mmol/L (98-107); Cholesterol 119 mg/dL (200); Creatinine, Serum 1.17 mg/dL (0.55-1.02); EST Glomerular Filtration Rate 47 mL/min (>60); Est Glom Filt Rate - Afr Amer 57 mL/min (>60); Estimated Creatinine Clearance 29.32 ml/min; Glucose 98 mg/dL (74-106); High Density Lipoprotein 42 mg/dL; Potassium 3.7 mmol/L (3.5-5.1); Sodium Level 143 mmol/L (136-145); Thyroid Stim Hormone (TSH) 0.22 uIU/mL (0.358-3.74); Triglycerides 112 mg/dL; Very Low Density Lipoprotein 22 mg/dL (5-40)
--- NOTE | 2019-10-25 09:32 | CT_ITS ---
STUDY: CTA HEAD AND NECK WITH CONTRAST REASON FOR EXAM: Female, 83 years old. ENCEPHALOPATHY, VERTIGO RADIATION DOSAGE (If Supplied By Facility): CTDIvol = ( 19.94 ) mGy, DLP = ( 389.68 ) mGycm TECHNIQUE: CT angiography was performed with a multi-detector CT scanner. Data acquisition was obtained from the skull base through the vertex following intravenous administration of 100 CC ISOVUE 370. MIP images were reconstructed from the axial data set. Post-processing of the angiographic images was performed, with multiplanar reformation and 3D reconstruction. Individualized dose optimization techniques were used for this CT. COMPARISON: No relevant priors. FINDINGS: Normal bilateral petrous carotid arteries. There is calcified plaque formation of the right cavernous carotid artery, without a cross-sectional luminal stenosis. There is calcified plaque formation of the left cavernous carotid artery, without a cross-sectional luminal stenosis. Normal right A1 segments of the anterior cerebral artery. Normal left A1 segments of the anterior cerebral artery. Normal intact anterior communicating artery (ACOM). Normal bilateral A2 segments of the anterior cerebral arteries. Normal right M1 and M2 segments of the middle cerebral arteries, with a normal M1 bifurcation. Normal left M1 and M2 segments of the middle cerebral arteries, with a normal M1 bifurcation. Normal right posterior communicating artery (PCOM). Normal left posterior communicating artery (PCOM). Normal bilateral vertebral arteries. Normal basilar artery with a normal basilar bifurcation. The visualized bilateral superior cerebellar (SCA) arteries are normal. Normal bilateral P1, P2 and visualized P3 segments of the posterior cerebral arteries. There is no demonstrated aneurysm of the [place]. There is no demonstrated abnormality of the visualized brain. AORTIC ARCH: There is atherosclerotic calcific plaque formation of the aortic arch and great vessels arising from the aortic arch, without a hemodynamically significant stenosis. There is a normal origin of the brachiocephalic, left common carotid, and left subclavian arteries. RIGHT CAROTID ARTERIES: Normal right common carotid artery (CCA). Normal right common carotid bulb. There is mild atherosclerotic plaque formation of the origin of the right internal carotid artery with less than 50% cross sectional diameter stenosis. Normal visualized cervical portion of the right internal carotid artery. Normal origin of the right external carotid artery (ECA). LEFT CAROTID ARTERIES: Normal left common carotid artery (CCA). Normal left common carotid bulb. There is extensive atherosclerotic plaque formation of the origin of the left internal carotid artery with an estimated stenosis of greater than 70%. There is evidence of an ulcerated plaque in the proximal portion of the left internal carotid artery. Normal visualized cervical portion of the left internal carotid artery. Normal origin of the left external carotid artery (ECA). VERTEBRAL ARTERIES: There is enhancement within the bilateral vertebral arteries with a small left vertebral artery, and a dominant right vertebral artery. CT/CTA Head AND Neck W/ Contrast IMPRESSION: High-grade stenosis at the origin of the left internal carotid artery with ulcerated plaque in the proximal portion of the left internal carotid artery. Electronically Signed: Jerel Churchill, at 11:09 EST , Service support ,
[2019-10-25] MEDS: 0.9% Normal Saline 1,000 ML 125 ML IV (10:38)
--- NOTE | 2019-10-25 11:40 | PCM.DC.SUM ---
Discharge Date and Diagnosis Date of Admission: 10/24/19 Date of Discharge: 10/25/19 - Primary Discharge Diagnosis Active and Suspected Problems (Last Reviewed 09/15/19 @ 13:54 by Opal Long) 1. 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 Abdominal pain with history of upper GI bleed secondary to peptic ulcer disease with duodenal ulcer 3. CAD with history of CABG 4. PVD 5. Hypertension 6. Hyperlipidemia 7. Sick sinus syndrome status post pacemaker placement 8. Paroxysmal atrial fibrillation 9. Chronic COPD 10. Hypothyroidism with history of parathyroid mass 11. History of breast cancer status post left mastectomy 12. Chronic kidney disease stage III 13. Chronic systolic CHF 14. Gout - Secondary Discharge Diagnosis Chronic Problems (Last Reviewed 09/15/19 @ 13:54 by Opal Long) COPD (chronic obstructive pulmonary disease) (Chronic) Vertigo (Chronic) Atherosclerosis of coronary artery of [place] without angina pectoris (Chronic) Biventricular cardiac pacemaker in situ (Chronic 12/10/15) Initial implant 06/27/2009 then upgrade to Bi-V 2016 Paroxysmal atrial fibrillation (Chronic) Ischemic cardiomyopathy (Chronic) Sick sinus syndrome (Chronic) Left bundle branch block (LBBB) (Chronic) Chronic systolic (congestive) heart failure (Chronic) Essential (primary) hypertension (Chronic) Hyperlipidemia (Chronic) Chronic renal failure, stage 4 (severe) (Chronic) 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 Increased markings at the lung bases suggestive of bibasilar scarring. Electronically Signed: Jerel Churchill at 10:01 EST , Service support , Brain CT 10/24/19 15:25 IMPRESSION: Chronic involutional changes of the brain. Electronically Signed: Tristen Mars MD at 16:22 EST Tel , Service support , KUB X-Ray 10/24/19 17:40 IMPRESSION: No bowel obstruction. Electronically Signed: Randell Delcid at 19:13 EST Tel , Service support , Head/Neck CTA 10/25/19 09:32 IMPRESSION: High-grade stenosis at the origin of the left internal carotid artery with ulcerated plaque in the proximal portion of the left internal carotid artery. Electronically Signed: Jerel Kirkdung, at 11:09 EST , Service support , Operations: None Procedures: None Summary of Care Provided: The patient is a 83 year old F admitted 11/20/2019 due to blurred vision, slurred speech and stomach pain. 1. Acute CVA with high-grade stenosis of the left internal carotid artery with ulcerated plaque of the proximal portion of the left internal carotid artery-brain CT with chronic changes. CTA of head and neck with high-grade stenosis left internal carotid artery and ulcerated plaque of the proximal portion of the left internal carotid artery. Patient presented with slurred speech, vision changes and altered mental status. Unable to obtain MRI due to incompatible pacemaker. Given worsening NIHHS and CTA findings, family requested transfer to tertiary facility for further neurology evaluation. Continue aspirin, statin. 2. Abdominal pain-history of upper GI bleed secondary to peptic ulcer disease with duodenal ulcer-Patient was recently seen by Dr. Hawkins 09/15/[address] of abdomen 09/08/19 showed sludge and possible gallstones. Repeat GB ultrasound 09/14/19 completed which showed no stones or sludge in gallbladder. Given patient's history of ulcers and occasional NSAID use, patient was treated as peptic ulcer disease. On nizatidine and omeprazole. KUB unremarkable. 3. CAD with history of CABG-continue beta-shruthi. 4. PVD-history of ischemic left foot status post left lower extremity arteriogram/angioplasty. 5. Hypertension-patient on amlodipine, carvedilol, Lasix. 6. Hyperlipidemia-not on statin. 7. Sick sinus syndrome status post pacemaker placement 8. Paroxysmal atrial fibrillation-on anticoagulation with Coumadin. Continue carvedilol. INR 1.2 on admission. 9. Chronic COPD-no acute exacerbation. As needed albuterol aerosol. 10. Hypothyroidism with history of parathyroid mass 11. History of breast cancer status post left mastectomy 12. Chronic kidney disease stage III-at baseline, trend BMP. 13. Chronic systolic CHF-echocardiogram August 2019 showed EF 37%, mild to moderate mitral valve insufficiency, moderate pulmonary hypertension, moderate tricuspid valve insufficiency. Continue home Lasix regimen. 14. Gout- continue allopurinol. General: Drowsy, difficult to arouse HEENT: Atraumatic, PERRLA, EOMI, Normocephalic Oral: Dry Mucosa Neck: Supple, No JVD, Negative Carotid Bruits Lungs: Clear to auscultation, Diminished Cardiovascular: Regular rate, Regular Rhythm, Normal S1, Normal S2, No murmurs Abdomen: Bowel Sounds Present, Soft, Non-Distended, Tender Extremities: No clubbing, No cyanosis, Capillary Refill Less than 3 Seconds, Edema - +1 lower extremity Skin: No rashes, No breakdown Musculoskeletal: No Tenderness to Palpation of Joints or Extremities Neurological: Cranial nerves II-XII grossly intact, difficult to assess due to drowsiness. Increased weakness left upper extremity compared to prior assessment. Psych/Mental Status: Normal Affect Patient seen and examined prior to discharge. Physical assessment as noted above. Transfer to tertiary facility for neurology and vascular surgery evaluation. This patient was seen by MARINA Carcamo under the supervision of Dr. Rangel. - Physical Exam Vitals/I&O's: Vital Signs Temp Pulse Resp BP Pulse Ox 97.5 F L 61 20 H 164/79 H 98 10/25/19 08:44 10/25/19 08:44 10/25/19 08:44 10/25/19 08:44 10/25/19 08:44 Oxygen Flow Rate (L/min) 2 Oxygen Delivery Method Nasal Cannula Weight: 120 lb 9.486 oz Body Mass Index (BMI) 22.0 Intake and Output for Last 24 Hours 10/23/19 10/24/19 10/25/19 23:59 23:59 23:59 Intake Total 0 / 0 104.0 / 104.0 Output Total 200 / 200 Balance -200 / -200 104.0 / 104.0 Laboratory Results 10/24/19 09:35: Hemoglobin A1c 6.3 10/24/19 13:01: Urine Color Yellow, Urine Clarity Clear, Urine pH 5.0, Ur Specific [place]kinson 1.020, Urine Protein 30 H, Urine Glucose (UA) Normal, Urine Ketones 5 H, Urine Occult Blood 250 H, Urine Nitrite Negative, Urine Bilirubin Negative, Urine Urobilinogen Normal, Ur Leukocyte Esterase Negative, Urine RBC 10-25 SEEN, Urine WBC 0 SEEN, Ur Squamous Epith Cells 0-5 SEEN, Urine Bacteria RARE, Urine Mucus 0 SEEN 10/24/19 18:00: Sodium 142, Potassium 4.3, Chloride 109 H, Carbon Dioxide 27.0, Anion Gap 6, BUN 24 H, Creatinine 1.20 H, Estim Creat Clear Calc 28.59, Est GFR (MDRD) Af Amer 55 L, Est GFR (MDRD) Non-Af 46 L, BUN/Creatinine Ratio 20.0, Glucose 108 H, Calcium 10.0, Magnesium 1.9, Total Bilirubin 1.60 H, AST 13 L, ALT 19, Alkaline Phosphatase 130 H, Troponin I 0.142 H, Total Protein 6.3 L, Albumin 3.0 L, Globulin 3.3, Albumin/Globulin Ratio 0.9 10/24/19 18:00: PT 14.6, INR 1.2 10/24/19 21:41: Troponin I 0.144 H 10/25/19 00:33: Troponin I 0.125 H 10/25/19 03:30: Sodium 143, Potassium 3.7, Chloride 108 H, Carbon Dioxide 27.0, Anion Gap 8, BUN 25 H, Creatinine 1.17 H, Estim Creat Clear Calc 29.32, Est GFR (MDRD) Af Amer 57 L, Est GFR (MDRD) Non-Af 47 L, BUN/Creatinine Ratio 21.4 H, Glucose 98, Calcium 9.6, Triglycerides 112, Cholesterol 119, LDL Cholesterol 55, VLDL Cholesterol 22, HDL Cholesterol 42, TSH 0.22 L 10/25/19 03:30: Troponin I 0.115 H Current Medications Acetaminophen (Tylenol) 650 mg PO Q6H PRN PRN PRN Reason: Pain Score 1-10/Temp > 100.7 F Albuterol Sulfate (Ventolin Aerosols) 2.5 mg INHALATION Q2H PRN PRN PRN Reason: SOB/Wheezing Allopurinol (Zyloprim) 100 mg PO DAILY [facility] Last Admin: 10/25/19 09:28 Dose: Not Given Documented by: Aspirin (Aspirin, Baby) 81 mg PO DAILY@0800 [facility] Last Admin: 10/25/19 09:27 Dose: Not Given Documented by: Carvedilol (Coreg) 25 mg PO BID [facility] Last Admin: 10/25/19 09:27 Dose: Not Given Documented by: Docusate Sodium (Colace) 100 mg PO BID PRN PRN PRN Reason: Constipation Enoxaparin Sodium (Lovenox) 60 mg SC Q24H [facility] Last Admin: 10/24/19 22:27 Dose: 60 mg Documented by: Famotidine (Pepcid) 20 mg PO DAILY [facility] Last Admin: 10/25/19 09:28 Dose: Not Given Documented by: Furosemide (Lasix) 40 mg PO DAILY [facility] Last Admin: 10/25/19 09:28 Dose: Not Given Documented by: [facility] Admin: 10/25/19 09:27 Dose: Not Given Documented by: Sodium Chloride () 1,000 mls @ 125 mls/hr IV .Q8H [facility] Last Admin: 10/25/19 10:38 Dose: 125 mls/hr Documented by: Levothyroxine Sodium (Synthroid) 100 mcg PO DAILY@0600 [facility] Last Admin: 10/25/19 06:27 Dose: Not Given Documented by: Ondansetron HCl (Zofran) 4 mg IV Q8H PRN PRN PRN Reason: NAUSEA/VOMITING Pantoprazole Sodium (Protonix) 20 mg PO DAILY [facility] Last Admin: 10/25/19 09:28 Dose: Not Given Documented by: Sodium Chloride () 10 - 40 ml IV UD PRN PRN Reason: SALINE FLUSH Warfarin Sodium (Coumadin (Pbkc)) 4 mg PO DAILY@1700 [facility] Last Admin: 10/24/19 18:59 Dose: Not Given Documented by: Home Medications: Medications to take at Discharge Gabapentin [Neurontin] 100 mg PO BIDCM #60 cap 09/02/18 allopurinol 100 mg tablet 100 mg PO DAILY 06/15/19 levothyroxine 100 mcg tablet 100 mcg PO DAILY 06/15/19 carvedilol 25 mg tablet 25 mg PO BID tab 08/18/19 nizatidine 150 mg capsule 150 mg PO BID cap 08/18/19 furosemide 40 mg tablet 40 mg PO DAILY 09/07/19 Amlodipine Besylate [Norvasc] 10 mg PO DAILY 09/08/19 omeprazole 20 mg capsule,delayed release 20 mg PO DAILY #60 cap 09/15/19 warfarin 4 mg tablet 4 mg PO DAILY #90 tab 09/18/19 Cyanocobalamin (Vitamin B-12) [B-12] 1,000 mcg PO DAILY 10/24/19 Meclizine HCl [Antivert] 12.5 mg PO TID PRN PRN 10/24/19 Primary Care Physician: Sudhir Fuller III, MD [Primary Care Provider] - Disposition: Acute care Hospital Minutes spent on discharge:: 35 Patient Condition:: Guarded Medical Necessity - Tobacco Use Smoking Status: Never smoker Tobacco Use: Non-smoker Meaningful Use Info Meaningful Use Diagnoses (Choose all that apply): Ischemic CVA - CVA Therapy Assessed for PT,OT and/or ST?: Yes - Ischemic Stroke Antithrombotic order at d/c?: Yes Dx of Atrial fib/flutter?: Yes Anticoagulant at discharge?: Yes Statins at discharge?: Yes Primary Dx Acute Ischemic CVA?: Yes IV tPA ordered during stay?: No Reason IV t-PA not ordered: Medical Contraindication
[2019-10-25] MEDS: Enoxaparin 30 MG/0.3 ML Syringe 20 MG SC (11:50)
--- NOTE | 2019-10-25 12:36 | NURSING ---
Report called to SHERRILL Lawrence at [facility]
== END 2019-10-25 11:39 | disposition short-term general hospital (02) ==
LOC: ED 16:21 → PCU 16:59
PROVIDERS: Nurse Practitioner Family; Admitting Provider Family Medicine; Emergency Provider Emergency Medicine; PCP Family Medicine; Visit Provider Internal Medicine
DX: I63.9 Cerebral infarction, unspecified (principal); I25.10 Atherosclerotic heart disease of native coronary artery without angina pectoris; I13.0 Hypertensive heart and chronic kidney disease with heart failure and stage 1 through stage 4 chronic kidney disease, or unspecified chronic kidney disease; E03.9 Hypothyroidism, unspecified; I48.0 Paroxysmal atrial fibrillation; E78.5 Hyperlipidemia, unspecified; I50.22 Chronic systolic (congestive) heart failure; M10.9 Gout, unspecified; I73.9 Peripheral vascular disease, unspecified; J44.9 Chronic obstructive pulmonary disease, unspecified; I25.5 Ischemic cardiomyopathy; R47.81 Slurred speech; N18.4 Chronic kidney disease, stage 4 (severe); Z79.899 Other long term (current) drug therapy; Z79.01 Long term (current) use of anticoagulants; Z95.0 Presence of cardiac pacemaker; Z95.1 Presence of aortocoronary bypass graft; Z87.11 Personal history of peptic ulcer disease
CPT/HCPCS: 36415; 70450; 70496; 70498; 71045; 74018; 80048; 80053; 80061; 81001; 83036; 83735; 84443; 84484; 85025; 85610; 92610; 93005; 94762; 96372; 96374; 96375; 99218; 99285; J7030; P9612; Q9967; G0378; J2405